=== PATIENT | male | born 1950 | race Caucasian/White ===

== ENCOUNTER → 2017-11-29 12:14 | Outpatient (CLI) | payer MEDICARE, OTHER, SELFPAY ==
[2017-11-29 14:16] LABS: ALB/GLOB Ratio 1.2 RATIO (0.9-2.4); AST(SGOT) 20 U/L (15-37); Alanine Aminotransfer ALT/SGPT 33 U/L (16-61); Albumin, Serum 3.8 g/dL (3.2-5.0); Alkaline Phosphatase 89 U/L (45-117); Anion Gap 10 (5-15); BUN 21 mg/dL (7-18); BUN/Creat Ratio 21.2 RATIO (10-20); Chloride 107 mmol/L (98-107); Cholesterol 157 mg/dL (200); Creatinine, Serum 0.99 mg/dL (0.70-1.30); EST Glomerular Filtration Rate 80 mL/min (>60); Est Glom Filt Rate - Afr Amer 96 mL/min (>60); Globulin 3.2 g/dL (2.2-4.2); Glucose 131 mg/dL (74-106); High Density Lipoprotein 43 mg/dL; Potassium 4.1 mmol/L (3.5-5.1); Sodium Level 143 mmol/L (136-145); Triglycerides 112 mg/dL; Very Low Density Lipoprotein 22 mg/dL (5-40)
[2017-11-29 14:22] LABS: Hemoglobin A1c 7.6 % (4.2-6.3)
== END ==
PROVIDERS: Family Provider Family Medicine; PCP Family Medicine; Visit Provider Family Medicine
DX: I10 Essential (primary) hypertension (principal); E78.2 Mixed hyperlipidemia; E11.9 Type 2 diabetes mellitus without complications
CPT/HCPCS: 36415; 80053; 80061; 83036

== ENCOUNTER → 2018-03-07 08:37 | Outpatient (CLI) | payer MEDICARE, OTHER, SELFPAY ==
[2018-03-07 10:59] LABS: PSA,Total - Annual Screen 0.43 ng/mL (0.00-4.00)
== END ==
PROVIDERS: Family Provider Family Medicine; PCP Family Medicine; Visit Provider Urology
DX: Z12.5 Encounter for screening for malignant neoplasm of prostate (principal)
CPT/HCPCS: 36415; 84153; G0103

== ENCOUNTER → 2018-04-12 09:23 | Outpatient (CLI) | payer MEDICARE, OTHER, SELFPAY | PROVIDERS: Family Provider Family Medicine; PCP Family Medicine; Visit Provider Family Medicine | DX: E11.9 Type 2 diabetes mellitus without complications (principal) | CPT/HCPCS: 36415; 83036 ==

== ENCOUNTER → 2018-07-18 10:32 | Outpatient (CLI) | payer MEDICARE, OTHER, SELFPAY ==
[2018-07-18 09:35] VITALS: BMI 38.2
[2018-07-18 11:33] LABS: Hemoglobin A1c 7.6 % (4.2-6.3)
--- OUTSIDE RECORDS SUMMARY | 2018-09-03 11:06 | XMS RPT_ITS ---
:1950 Author Organization [facility] Care Team Providers Name Role Phone Brown, Cole Attending Unavailable Brown, Cole Referring Unavailable Brown, Cole Attending Unavailable Brown, Cole Referring Unavailable Brown, Cole Primary Care Unavailable Brown, Cole Attending Unavailable Brown, Cole Referring Unavailable Brown, Cole Primary Care Unavailable Brown, Cole Attending Unavailable Brown, Cole Referring Unavailable Brown, Cole Primary Care Unavailable Jose Manuel Pham Attending Unavailable VeroJose Manuel arora Referring Unavailable Brown, Cole Primary Care Unavailable Brown, Cole Attending Unavailable Brown, Cole Referring Unavailable Brown, Cole Primary Care Unavailable Brown, Cole Attending Unavailable Brown, Cole Referring Unavailable Brown, Cole Primary Care Unavailable PROBLEMS PROBLEMS DATE TYPE CONDITION / CODE ATTENDING STATUS SOURCE 07/18/2018 Unknown E11.9 - Type 2 Brown, Cole Active [place] diabetes mellitus Community without Hospital complications / Repository E11.9(ICD-10) 11/29/2017 Unknown E78.2 - Mixed Brown, Cole Active [place] hyperlipidemia / Community E78.2(ICD-10) Hospital Repository 11/29/2017 Unknown I10 - Essential Brown, Cole Active [facility] (primary) [facility] hypertension / Hospital I10(ICD-10) Repository PROCEDURES PROCEDURES No Procedure Records FoundRESULTS RESULTS HEMOGLOBIN A1C Collected: 07/18/2018 Status: F Source: [place] 10:39 AM [facility] REPOSITORY TYPE CODE TESTS RESULT OUT OF RANGE REFERENCE UNITS LAB L501.9985 4.2-6.3 % High HGB A1C 7.6 Performed By: #### L501.9985 #### [facility] [address] [place], [address] INTERNAL MEDICINE Observed: 07/18/2018 Status: F Source: [facility] OFFICE VISIT 10:21 AM [facility] REPOSITORY [facility] [address] [place] [address] [place] [address] OFFICE VISIT Date of Service: 07/18/18 MR#: [id number] Acct: [id number] Name: AARON GOMEZ Rep #: [id number] : 1950 Provider: Cole Espinosa DO Age/Sex: 67/M Location: [facility] Status: Signed Intake Vital Signs07/18/18 Height 5 ft 5.5 in Intake Visit Reasons: 3 MO FU Chief Complaint: follow-up visit Is patient in pain?: No Allergies oxycodone HCl [From Percocet] Allergy (Intermediate, Verified 04/12/18 08:26) Other Medications Aspirin [Aspirin, Baby] 81 mg PO DAILY@0800 01/28/15 [History Confirmed 07/18/18] allopurinol 100 mg tablet 100 mg PO QDAY 11/29/17 [History Confirmed 04/12/18] diltiazem CD 180 mg capsule,extended release 24 hr 180 mg PO DAILY #90 cap 11/29/17 [Rx Confirmed 07/18/18] atorvastatin 40 mg tablet 40 mg PO QDAY #90 tab 01/24/18 [Rx Confirmed 07/18/18] furosemide 40 mg tablet 40 mg PO DAILY 07/18/18 [History Confirmed 07/18/18] glipizide ER 5 mg tablet, extended release 24 hr 5 mg PO QDAY #90 tab 07/18/18 [Rx Confirmed 07/18/18] hydrocodone 5 mg-acetaminophen 325 mg tablet 1 tab PO .twice daily PRN #60 tab 07/18/18 [Rx Confirmed 07/18/18] metformin 500 mg tablet 500 mg PO BID #180 tab 07/18/18 [Rx Confirmed 07/18/18] PFSH Medical History Kidney stones (Resolved) Decreased hearing (Chronic) Hyperlipemia (Chronic) Hypertension (Chronic) Chronic back pain (Chronic) Arthritis (Chronic) Type 2 diabetes mellitus (Chronic) Surgical History History of cervical spinal surgery (Acute) History of kidney stones (Acute) Family History Father Mental disorder Heart disease Mother Heart disease High cholesterol Social History Smoking Status: Never smoker alcohol intake: never substance use type: does not use what type of physical activity do you participate in: walking frequency: daily HPI HPI Chief Complaint: follow-up visit Details: AARON GOMEZ, is a 67 M who presents to the office today for a follow-up on his diabetes. He thinks his sugars are relatively well controlled but he is not really changed his diet. He does complain a lot about joint pain ,knee pain, hip pain ,hand pain but other than some restriction in range of motion there is no sign of inflammatory changes. ROS Const Constitutional: No weight change, body ache, chills, fatigue, sleep problems, fever(s), change in appetite, snoring, weakness, frequent falls, headache(s) or excessive sweating Eyes Eyes: No change in vision, eye pain, light sensitivity or blurry vision ENT ENT: No headache(s), abnormal hearing, ear pain, tinnitus, nasal congestion, sore throat or neck pain Resp Respiratory: No snoring, cough, shortness of breath or wheezing Cardio Cardiology: No excessive sweating, chest pain at rest, chest pain with exertion, shortness of breath, dyspnea on exertion, palpitations, orthopnea or lightheadedness Gastro GI: No abdominal pain, change in bowel habits, constipation, diarrhea, vomiting, nausea/dyspepsia or cramping Genitourinary Male: No painful urination, urinary incontinence, urinary frequency, urinary urgency, blood in urine, testicle pain or other Musc Musculoskeletal: Positive for joint pain (bad in fingers) and other (shoulder pain); no neck pain, abnormal walking, back pain, limited range of motion, numbness, tingling or muscle weakness Skin Skin: No redness, dry skin, itching, lesions, wounds or rash Neuro Neurology: No weakness, frequent falls, headache(s), abnormal hearing, abnormal walking, numbness, tingling, abnormal speech, dizziness or memory loss Psych Psychiatric: No change in appetite, No memory loss, No anxiety, No depression, No Thoughts of harming yourself/Others Endo Endocrine: No fatigue, excessive sweating, cold intolerance, increased thirst/drinking, heat intolerance, flushing or increased hunger Aller/Imm Allergy/Immunologic: No wheezing, itchy eyes, hives or seasonal allergy symptoms Mumtaz/Lymp Hematologic/Lymphatic: No easy bleeding, easy bruising or enlarged lymph nodes Exam Const General: cooperative Nutritional Appearance: average body habitus Orientation: alert Limitations: physical limitations HENMT Head: normal to inspection Ears: hearing grossly normal bilaterally Nose: external nose normal Face and sinus: normal facial exam Eyes General: appearance normal, both eyes and all related structures Neck Neck: no lymphadenopathy Neck mass: No Thyroid: thyroid normal Resp Effort AND Inspection: normal respiratory effort, symmetric chest movement Auscultation: Bilateral: Clear to Auscultation Cardio Rate: regular rate Musc Musculoskeletal: Yes joint tenderness (Left shoulder marked limitation of motion.); no muscle weakness Cervical Spine: pain with cervical ROM and cervical ROM abnormal Skin General: no rashes or lesions noted Neuro General: oriented x3, normal sensation to monofilament Cranial Nerves: CN's II-XI intact bilaterally Extrem General: no clubbing, cyanosis or edema Psych Appearance: grossly normal Mental Status: mental status grossly normal Assessment AND Plan Problems 1. Mixed hyperlipidemia E78.2 2. Essential hypertension I10 3. Chronic back pain M54.9; G89.29 4. Type 2 diabetes mellitus without complication, without long-term current use of insulin E11.9 5. Degenerative joint disease M19.90 Plan Mr. Gomez states that he has not been taking his metformin he is uncertain as to why he ran out but says it has not been refilled upon calling the office. However I have no record that he has called the office for refills so this may affect his hemoglobin A1c that was ordered. Other than that he was told to take acetaminophen for the joint pain supplemented by the Vicodin for the severe back pain which allows him to very remain ambulatory. I suggested that he may want to get a cane or a walking stick to give him a little more support because his ambulation is very tentative. Other lab work was up-to-date and did not need to be repeated follow-up will be in 3 months. Orders Orders: Medications Changed: Refilled: Plan Detail Follow Up 3 Months Coding Level of Care Code Off vis,est,level 3 Diagnoses Mixed hyperlipidemia E78.2 Hyperlipidemia type: mixed hyperlipidemia Essential hypertension I10 Hypertension type: essential hypertension Chronic back pain M54.9; G89.29 Back pain location: low back pain Sciatica presence: without sciatica Type 2 diabetes mellitus without complication, without long- term current use of insulin E11.9 Diabetes mellitus complication status: without complication Diabetes mellitus fdc insulin use: without rodent exterminator use Degenerative joint disease M19.90 07/18/18 1021 <Electronically signed by Cole Espinosa DO> Date Cole Espinosa DO Cosigner Signature: Date (if applicable) CC: HEMOGLOBIN A1C Collected: 04/12/2018 Status: F Source: [facility] 9:28 AM [facility] REPOSITORY TYPE CODE TESTS RESULT OUT OF RANGE REFERENCE UNITS LAB L501.9985 4.2-6.3 % High HGB A1C 7.0 Performed By: #### L501.9985 #### [facility] [address] [place], [address] INTERNAL MEDICINE Observed: 04/12/2018 Status: F Source: [place] OFFICE VISIT 9:09 AM [facility] REPOSITORY [facility] [address] [place] [address] OFFICE VISIT Date of Service: 04/12/18 MR#: [id number] Acct: [id number] Name: AARON GOMEZ Rep #: [id number] : 1950 Provider: Cole Espinosa DO Age/Sex: 67/M Location: [facility] Status: Signed Intake Vital Signs04/12/18 Height 5 ft 5.5 in 04/12/18 Weight: 242 lb 04/12/18 Body Mass Index (BMI) 39.6 04/12/18 Blood Pressure 143/85 Intake Visit Reasons: 3 MO FU Chief Complaint: check up - Diabetes Is patient in pain?: No Allergies oxycodone HCl [From Percocet] Allergy (Intermediate, Verified 04/12/18 08:26) Other Medications Metformin HCl [Glucophage] 500 mg PO BIDCM 09/20/14 [History Confirmed 04/12/18] Aspirin [Aspirin, Baby] 81 mg PO DAILY@0800 01/28/15 [History Confirmed 04/12/18] glipizide ER 5 mg tablet, extended release 24 hr 5 mg PO QDAY #90 tab 11/07/17 [Rx Confirmed 04/12/18] allopurinol 100 mg tablet 100 mg PO QDAY 11/29/17 [History Confirmed 04/12/18] diltiazem CD 180 mg capsule,extended release 24 hr 180 mg PO DAILY #90 cap 11/29/17 [Rx Confirmed 04/12/18] atorvastatin 40 mg tablet 40 mg PO QDAY #90 tab 01/24/18 [Rx Confirmed 04/12/18] hydrocodone 5 mg-acetaminophen 325 mg tablet 1 tab PO TID PRN #60 tab 03/02/18 [Rx Confirmed 04/12/18] PFSH Medical History Kidney stones (Resolved) Decreased hearing (Chronic) Hyperlipemia (Chronic) Hypertension (Chronic) Chronic back pain (Chronic) Arthritis (Chronic) Type 2 diabetes mellitus (Chronic) Surgical History History of cervical spinal surgery (Acute) History of kidney stones (Acute) Family History Father Mental disorder Heart disease Mother Heart disease High cholesterol Social History Smoking Status: Never smoker alcohol intake: never substance use type: does not use what type of physical activity do you participate in: walking frequency: daily HPI HPI Chief Complaint: check up - Diabetes Details: AARON GOMEZ, is a 67 M who presents to the office today for a diabetes recheck ROS Const Constitutional: No chills, fatigue, fever(s), frequent falls, malaise, weakness, sleep problems or change in appetite Eyes Eyes: No blurry vision, change in vision, double vision, discharge or visual disturbances ENT ENT: No abnormal hearing, ear pain, ear pressure, tinnitus or dizziness/vertigo Resp Respiratory: No cough, shortness of breath or wheezing Cardio Cardiology: No chest pain at rest, chest pain with exertion, shortness of breath, dyspnea on exertion, generalized swelling, irregular heart rhythm, lightheadedness, orthopnea, fast heart rate or palpitations Gastro GI: No abdominal pain, change in bowel habits, constipation, diarrhea, nausea/dyspepsia or vomiting Genitourinary Male: No difficulty urinating, burning urination, painful urination, urinary incontinence, urinary frequency, urinary urgency, urinary hesitancy, urinary retention, blood in urine, Frequent nighttime urination/ nocturia, sexual problems, testicle lump or testicle pain Musc Musculoskeletal: Positive for joint pain (Rt knee, Left shoulder) and muscle cramps (Fingers); no back pain, joint swelling, limited range of motion, muscle weakness, numbness or tingling Skin Skin: No change in skin color, itching, rash or wounds Breast Breast: No breast lump or breast pain Neuro Neurology: No frequent falls, weakness, abnormal hearing, numbness, tingling, unsteady gait/balance, dizziness, loss of vision, memory loss or visual disturbances Psych Psychiatric: No memory loss, No anxiety, No change in appetite, No depression, No Thoughts of harming yourself/Others Endo Endocrine: No fatigue, heat intolerance, increased thirst/drinking, increased hunger or increased urination Aller/Imm Allergy/Immunologic: No wheezing, itchy eyes or seasonal allergy symptoms Mumtaz/Lymp Hematologic/Lymphatic: No easy bleeding, easy bruising or enlarged lymph nodes Exam Const General: cooperative Nutritional Appearance: average body habitus Orientation: alert Limitations: physical limitations HENMT Head: normal to inspection Ears: hearing grossly normal bilaterally Nose: external nose normal Face and sinus: normal facial exam Eyes General: appearance normal, both eyes and all related structures Neck Neck: no lymphadenopathy Neck mass: No Thyroid: thyroid normal Resp Effort AND Inspection: normal respiratory effort, symmetric chest movement Auscultation: Bilateral: Clear to Auscultation Cardio Rate: regular rate Musc Musculoskeletal: Yes joint tenderness (Left shoulder marked limitation of motion.); no muscle weakness Cervical Spine: pain with cervical ROM and cervical ROM abnormal Skin General: no rashes or lesions noted Neuro General: oriented x3 Cranial Nerves: CN's II-XI intact bilaterally Extrem General: no clubbing, cyanosis or edema Psych Appearance: grossly normal Mental Status: mental status grossly normal Assessment AND Plan Problems 1. Essential hypertension I10 2. Mixed hyperlipidemia E78.2 3. Chronic back pain M54.9; G89.29 4. Type 2 diabetes mellitus E11.9 5. Kidney stones N20.0 Plan This patient was seen for a follow-up visit on his diabetes. He has lost 7 pounds his blood pressure is stable he states that when he takes his sugars which he does on an occasional basis to usually range from 140-160. Physical examination was unchanged most significantly noting marked decrease in motion of his left shoulder and decrease in motion of his cervical spine. Labs were ordered he was not in the need of any refills at this time. Orders Orders: Plan Detail Follow Up 3 Months Coding Level of Care Code Off vis,est,level 3 Diagnoses Essential hypertension I10 Hypertension type: essential hypertension Mixed hyperlipidemia E78.2 Hyperlipidemia type: mixed hyperlipidemia Chronic back pain M54.9; G89.29 Back pain location: low back pain Sciatica presence: without sciatica Type 2 diabetes mellitus E11.9 Diabetes mellitus complication status: without complication Kidney stones N20.0 04/12/18 0909 <Electronically signed by Cole Espinosa DO> Date Cole Espinosa DO Cosigner Signature: Date (if applicable) CC: PSA,TOTAL - ANNUAL Collected: 03/07/2018 Status: F Source: [place] SCREEN 8:44 AM [facility] REPOSITORY TYPE CODE TESTS RESULT OUT OF RANGE REFERENCE UNITS LAB L501.9910 0.00-4.00 ng/mL Normal PSA,TOT 0.43 SCREEN Result Comment: This test was performed using the TPSA assay method for the [employer] chemistry system. Values obtained with different assay methods cannot be used interchangably. When changing PSA assays in the course of monitoring a patient, additional sequential testing should be carried out to confirm baseline values. Performed By: #### L501.9910 #### [facility] [address] [place], [address] INTERNAL MEDICINE Observed: 11/29/2017 Status: F Source: [place] OFFICE VISIT 3:44 PM [facility] REPOSITORY [facility] [address] [place] [address] [place] [address] OFFICE VISIT Date of Service: 11/29/17 MR#: [id number] Acct: [id number] Name: AARON GOMEZ Rep #: [id number] : 1950 Provider: Cole Espinosa DO Age/Sex: 67/M Location: [facility] Status: Signed Intake Vital Signs11/29/17 Height 5 ft 5.5 in 11/29/17 Weight: 247 lb 11/29/17 Body Mass Index (BMI) 40.4 11/29/17 Blood Pressure 135/83 Intake Visit Reasons: F/U Chief Complaint: check up - Diabetes Assistant Center Manager Required: No Accompanied by: Is patient in pain?: No Allergies oxycodone HCl [From Percocet] Allergy (Intermediate, Verified 11/29/17 11:05) Other Medications Metformin HCl [Glucophage] 500 mg PO BIDCM 09/20/14 [History Confirmed 11/29/17] Aspirin [Aspirin, Baby] 81 mg PO DAILY@0800 01/28/15 [History Confirmed 11/29/17] Furosemide [Furosemide] 40 mg PO DAILY PRN PRN 01/28/15 [History Confirmed 11/29/17] glipizide ER 5 mg tablet, extended release 24 hr 5 mg PO QDAY #90 tab 11/07/17 [Rx Confirmed 11/29/17] allopurinol 100 mg tablet 100 mg PO QDAY 11/29/17 [History Confirmed 11/29/17] atorvastatin 40 mg tablet 40 mg PO QDAY 11/29/17 [History Confirmed 04/24/18] diltiazem CD 180 mg capsule,extended release 24 hr 180 mg PO DAILY #90 cap 11/29/17 [Rx Confirmed 11/29/17] hydrocodone 5 mg-acetaminophen 325 mg tablet 1 tab PO TID PRN #60 tab 11/29/17 [Rx Confirmed 11/29/17] PFSH Medical History Kidney stones (Resolved) Decreased hearing (Chronic) Hyperlipemia (Chronic) Hypertension (Chronic) Chronic back pain (Chronic) Arthritis (Chronic) Type 2 diabetes mellitus (Chronic) Surgical History History of cervical spinal surgery (Acute) History of kidney stones (Acute) Family History Father Mental disorder Heart disease Mother Heart disease High cholesterol Social History Smoking Status: Never smoker alcohol intake: never substance use type: does not use what type of physical activity do you participate in: walking frequency: daily HPI HPI Chief Complaint: check up - Diabetes Details: AARON GOMEZ, is a 67 M who presents to the office today for a check up on his diabetes and his cholesterol ROS Const Constitutional: Positive for fatigue, weakness and excessive sweating; no chills, fever(s), frequent falls, malaise, sleep problems or change in appetite Eyes Eyes: No blurry vision, change in vision, double vision, discharge or visual disturbances ENT ENT: Positive for tinnitus, hearing loss and post nasal drip; no abnormal hearing, ear pain, ear pressure or dizziness/vertigo Resp Respiratory: No cough, shortness of breath or wheezing Cardio Cardiology: Positive for excessive sweating; no chest pain at rest, chest pain with exertion, shortness of breath, dyspnea on exertion, generalized swelling, irregular heart rhythm, lightheadedness, orthopnea, fast heart rate or palpitations Gastro GI: No abdominal pain, change in bowel habits, constipation, diarrhea, nausea/dyspepsia or vomiting Genitourinary Male: No difficulty urinating, burning urination, painful urination, urinary incontinence, urinary frequency, urinary urgency, urinary hesitancy, urinary retention, blood in urine, Frequent nighttime urination/ nocturia, sexual problems, testicle lump or testicle pain Musc Musculoskeletal: Positive for joint pain (lt shoulder); no back pain, joint swelling, limited range of motion, muscle weakness, numbness or tingling Skin Skin: No change in skin color, itching, rash or wounds Breast Breast: No breast lump or breast pain Neuro Neurology: Positive for weakness; no frequent falls, abnormal hearing, numbness, tingling, unsteady gait/balance, dizziness, loss of vision, memory loss or visual disturbances Psych Psychiatric: No memory loss, No anxiety, No change in appetite, No depression, No Thoughts of harming yourself/Others Endo Endocrine: Positive for fatigue and excessive sweating; no heat intolerance, increased thirst/drinking, increased hunger or increased urination Aller/Imm Allergy/Immunologic: No wheezing, itchy eyes or seasonal allergy symptoms Mumtaz/Lymp Hematologic/Lymphatic: No easy bleeding, easy bruising or enlarged lymph nodes Exam Const General: cooperative Nutritional Appearance: average body habitus Orientation: oriented x3 Neck Neck: no lymphadenopathy Neck mass: Yes Resp Effort AND Inspection: normal respiratory effort Auscultation: Bilateral: Clear to Auscultation Cardio Rate: regular rate Rhythm: regular rhythm Musc Musculoskeletal: Yes decreased ROM (both shoulders); no muscle weakness Skin General: no rashes or lesions noted Neuro General: oriented x3, decrease sensation to monofilament Extrem General: normal to inspection, no pedal edema, limp Assessment AND Plan Problems 1. Type 2 diabetes mellitus E11.9 2. Mixed hyperlipidemia E78.2 3. Essential hypertension I10 4. Chronic back pain M54.9; G89.29 5. Kidney stones N20.0 Leisa Suh is here for checkup and his diabetes. In the past his sugars been under pretty good control his biggest problem has been #1 kidney stones #2 some breathing problems #3 severe problems with his shoulders. 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 He tries to control this with narcotics trying to limit his intake to 1 or 2 a day and he usually is able to cope with the pain. Labs were ordered to make sure his medications are correct I will contact him with the results. Orders Orders: Medications New: Changed: From: hydrocodone-acetaminophen 5-325 1 tab PO 4X/DAY PRN PRN Pain mg To: hydrocodone-acetaminophen 5-325 1 tab PO TID PRN Pain Cole Espinosa, DO mg Discontinued: tramadol Discontinued Reason: Pt no longer taki50 mg PO Q4H PRN PRN Pain Marielle Martin ng ciprofloxacin Discontinued Reason: Pt no mg PO BID Marielle Martin taking Coding Level of Care Code Off vis,est,level 3 Diagnoses Type 2 diabetes mellitus E11.9 Diabetes mellitus complication status: without complication Mixed hyperlipidemia E78.2 Hyperlipidemia type: mixed hyperlipidemia Essential hypertension I10 Hypertension type: essential hypertension Chronic back pain M54.9; G89.29 Back pain location: low back pain Kidney stones N20.0 11/29/17 1544 <Electronically signed by Cole Espinosa DO> Date Cole Espinosa DO Cosigner Signature: Date (if applicable) CC: COMPREHENSIVE METABOLIC Collected: 11/29/2017 Status: F Source: [place] [place] 12:22 PM [facility] REPOSITORY TYPE CODE TESTS RESULT OUT OF RANGE REFERENCE UNITS LAB L501.0100 74-106 mg/dL High GLU 131 Result Comment: Fasting Glucose result greater than or equal to 126 mg/dL suggests DIABETES MELLITUS per A.D.A. criteria. Please note revised GLUCOSE reference range effective 2017. LAB L501.1000 7-18 mg/dL High BUN 21 LAB L501.1100 0.70-1.30 mg/dL Normal CREAT,SERUM 0.99 Result Comment: The validity of the calculated GFR AND GFRAA in patients over 70 years has not been determined. Clinical correlation is essential. LAB L501.1110 >60 mL/min Normal EST GFR 80 Result Comment: Non- GFR Calc LAB L501.1115 >60 mL/min Normal EST GFR - AA 96 Result Comment: GFR Calc LAB L501.1300 10-20 RATIO High BUN/CRE 21.2 LAB L501.1500 6.4-8.2 g/dL T Normal PROT 7.0 LAB L501.1800 3.2-5.0 g/dL Normal ALB 3.8 LAB L501.1950 2.2-4.2 g/dL Normal GLOB 3.2 LAB L501.2000 0.9-2.4 RATIO Normal A/G 1.2 LAB L501.2200 8.5-10.1 mg/dL CA Normal 9.0 LAB L501.4100 15-37 U/L Normal AST 20 LAB L501.4305 45-117 U/L Normal ALK P 89 LAB L501.4405 16-61 U/L Normal ALT 33 LAB L501.4600 0.20-1.00 mg/dL High T BILI 1.20 LAB L501.5300 136-145 mmol/L NA Normal 143 LAB L501.5600 3.5-5.1 mmol/L K Normal 4.1 LAB L501.5900 98-107 mmol/L CL Normal 107 LAB L501.6100 21.0-32.0 mmol/L Normal CO2 26.0 LAB L501.6200 5-15 Normal GAP 10 Performed By: #### L500.4050, L500.4100, L501.9985 #### [facility] [address] [place], [place], [id number] LIPID PROFILE Collected: 11/29/2017 Status: F Source: [place] 12:22 PM [facility] REPOSITORY TYPE CODE TESTS RESULT OUT OF RANGE REFERENCE UNITS LAB L501.4900 200 mg/dL Normal CHOL 157 Result Comment: <200 mg/dL Desirable 200-240 mg/dL Borderline >240 mg/dL High Risk LAB L501.5000 mg/dL Normal TRIG 112 Result Comment: The drugs N-Acetylcysteine and Metamizole may falsely depress this assay. Serum Triglycerides Reference Interval Normal <150 mg/dL Borderline high 150 - 199 mg/dL High 200 - 499 mg/dL Very High > or = 500 mg/dL LAB L501.6400 mg/dL Normal HDL 43 Result Comment: The drugs N-Acetylcysteine and Metamizole may falsely depress this assay. Reference Range HDL <40 mg/dL Low HDL Cholesterol HDL >or= 60 mg/dL High HDL Cholesterol LAB L501.6500 0-130 mg/dL Normal LDL 92 LAB L501.6600 5-40 mg/dL Normal VLDL 22 Performed By: #### L500.4050, L500.4100, L501.9985 #### [facility] [address] [place], [place], [address] HEMOGLOBIN A1C Collected: 11/29/2017 Status: F Source: ABIGAIL 12:22 PM [facility] HOSPITAL REPOSITORY TYPE CODE TESTS RESULT OUT OF RANGE REFERENCE UNITS LAB L501.9985 4.2-6.3 % High HGB A1C 7.6 Performed By: #### L500.4050, L500.4100, L501.9985 #### [facility] [address] [place], [address] ALLERGIES ALLERGIES DATE TYPE / CODE NAME / CODE REACTION SEVERITY SOURCE 04/12/2018 Drug oxycodone Other [place] [facility] Allergy/416 HCl/[id number](R Hospital 339283(SNOM XNORM) Repository ED CT) ENCOUNTERS ENCOUNTERS ADMIT/DISCHARGE ACCOUNT ADMITTING ENCOUNTER LOCATION SOURCE NUMBER CLASS 07/18/2018 [id number] [place] [facility] ing:LAB Repository 07/18/2018/ [id number] Ambulatory BMSBuilding:B [place] 8 0 [place].[facility] Repository 04/12/2018 [id number] Ambulatory [place] 9 [facility] ing:MTLAB Repository 04/12/2018/ [id number] Ambulatory BMSBuilding:B [place] 8 3 [place].[facility] Repository 03/07/2018 [id number] Ambulatory [place] 4 [facility] ing:LAB Repository 11/29/2017 [id number] Ambulatory [place] [facility] ing:INT LAB Repository 11/29/2017/ [id number] Ambulatory BMSBuilding:B [place] 8 5 MS.[facility] Repository PAYERS PAYERS ENCOUNTER GUARANTOR PAYER SUBSCRIBER SOURCE 07/18/2018 AARON L Primary AARON L [place] [id number] Insurance:MEDICARE FORRERDOB: [facility] PART A [facility] [id number] Number: Repository [id number]: [phone] [id number] [phone] () Date:2018-07-18 07/18/2018 Secondary AARON L [place] Insurance:[facility] FORRERDOB: Community Number: [id number] Hospital [id number] Repository Date:6375-79-40[address], [place] [address]IF: 07/18/2018 Tertiary NOT GIVENUNK [place] Insurance:SELF PAY [facility] Number: Effective Repository Date:2018-07-18 07/18/2018 AARON L Primary AARON L [place] [id number] Insurance:MEDICARE FORRERDOB: [facility] [id number], [place] Number: Repository [address]Lso: 330 [id number] [phone] () Date:2018-04-12 07/18/2018 Secondary [place] Insurance:AARPPolicy FORRERDOB: Community Number: [id number] Hospital [id number] Repository Date:0762-41-04MW [address], [place] [address]VD: 07/18/2018 Tertiary NOT GIVENUNK [place] Insurance:SELF PAY [facility] Number: Effective Repository Date:2018-07-18 04/12/2018 AARON L Primary AARON L [place] [id number] Insurance:MEDICARE FORRERDOB: [facility] [id number] [place] Number: Repository [id number]: 330 [id number] [phone] () Date:2018-04-12 04/12/2018 Secondary [place] L [place] Insurance:AARPPolicy FORRERDOB: Community Number: [id number] Hospital [id number] Repository Date:3853-93-49SN [address], [place] [address]LJ: 04/12/2018 Tertiary NOT GIVENUNK [place] Insurance:SELF PAY [facility] Number: Effective Repository Date:2018-04-12 04/12/2018 AARON L Primary AARON L [place] [id number] Insurance:MEDICARE FORRERDOB: [facility] BOX PART A [facility] [id number] Number: Repository [id number]: 330 [id number] [phone] () Date:2017-11-29 04/12/2018 Secondary AARON L [place] Insurance:AARPPolicy FORRERDOB: Community Number: [id number] Hospital [id number] Repository Date:[id number] [address]OA: 04/12/2018 Tertiary NOT GIVENUNK [place] Insurance:SELF PAY [facility] Number: Effective Repository Date:2018-04-12 03/07/2018 AARON L Primary AARON L [place] [id number] Insurance:MEDICARE FORRERDOB: [facility] [id number] Number: Repository [id number]: 330 [id number] [phone] () Date:2018-03-07 03/07/2018 Secondary AARON L [place] Insurance:AARPPolicy FORRERDOB: Community Number: [id number] Hospital [id number] Repository Date:[id number] [address], [place] [address]BO: 03/07/2018 Tertiary NOT GIVENUNK [place] Insurance:SELF PAY [facility] Number: Effective Repository Date:2018-03-07 11/29/2017 AARON L Primary ARAON L [place] [id number] Insurance:MEDICARE FORRERDOB: [facility] BOX PART A [facility] [id number] Number: Repository [id number]: [id number] [phone] Date:2017-11-29 () 11/29/2017 Secondary AARON L [place] Insurance:AARPPolicy FORRERDOB: Community Number: [id number] Hospital [id number] Repository Date:3907-22-48TI [address], [place] [address]ZP: 11/29/2017 Tertiary NOT GIVENUNK [place] Insurance:SELF PAY [facility]: Effective Repository Date:2017-11-29 11/29/2017 AARON L FORRERPO Primary AARON L [place] [address] Insurance:MEDICARE [facility] [id number] Number[place] Repository [id number]: [id number] [phone] Date:2017-10-11 () 11/29/2017 Secondary [place] L [place] [facility] FOR[facility]: [facility] Number: [id number] Hospital [id number] Repository Date:7020-31-38[address], [place] [address]RO: 11/29/2017 Tertiary NOT GIVENUNK [place] Insurance:SELF PAY [facility] Number: Effective Repository Date:2017-11-28
== END ==
PROVIDERS: Family Provider Family Medicine; PCP Family Medicine; Referring Provider Family Medicine; Visit Provider Family Medicine
DX: E11.9 Type 2 diabetes mellitus without complications (principal)
CPT/HCPCS: 36415; 83036

== ENCOUNTER → 2018-10-24 09:07 | Outpatient (CLI) | payer MEDICARE, OTHER, SELFPAY ==
[2018-10-24 08:40] VITALS: BMI 38.2
[2018-10-24 12:50] LABS: Hemoglobin A1c 6.9 % (4.2-6.3)
[2018-10-24 13:17] LABS: ALB/GLOB Ratio 1.2 RATIO (0.9-2.4); AST(SGOT) 15 U/L (15-37); Alanine Aminotransfer ALT/SGPT 24 U/L (16-61); Albumin, Serum 3.8 g/dL (3.2-5.0); Alkaline Phosphatase 87 U/L (45-117); Anion Gap 6 (5-15); BUN 16 mg/dL (7-18); BUN/Creat Ratio 14.5 RATIO (10-20); Calcium,Total 8.8 mg/dL (8.5-10.1); Chloride 106 mmol/L (98-107); Cholesterol 159 mg/dL (200); EST Glomerular Filtration Rate 70 mL/min (>60); Est Glom Filt Rate - Afr Amer 85 mL/min (>60); Globulin 3.1 g/dL (2.2-4.2); Glucose 217 mg/dL (74-106); High Density Lipoprotein 47 mg/dL; Potassium 4.2 mmol/L (3.5-5.1); Protein, Total 6.9 g/dL (6.4-8.2); Sodium Level 138 mmol/L (136-145); Triglycerides 106 mg/dL; Very Low Density Lipoprotein 21 mg/dL (5-40)
== END ==
PROVIDERS: Family Provider Family Medicine; PCP Family Medicine; Visit Provider Family Medicine
DX: E11.9 Type 2 diabetes mellitus without complications (principal); I10 Essential (primary) hypertension; E78.5 Hyperlipidemia, unspecified
CPT/HCPCS: 36415; 80053; 80061; 83036

== ENCOUNTER 2018-11-02 22:17 | Emergency (ER) | payer MEDICARE, OTHER, SELFPAY ==
[2018-10-24 08:40] VITALS: BMI 38.2
[2018-11-02 22:21] VITALS: BP 152/104; PULSE 93; RESP 18; TEMP 36.8; O2SAT 93; BMI 34.9
--- NOTE | 2018-11-02 22:31 | CT_ITS ---
STUDY: CT ABDOMEN AND PELVIS WITHOUT CONTRAST REASON FOR EXAM: Male, 68 years old. Left side abdominal pain RADIATION DOSAGE (If Supplied By Facility): CTDIvol = ( 22.39 ) mGy, DLP = ( 1191.01 ) mGycm TECHNIQUE: Transaxial images were obtained from the dome of the diaphragm to the symphysis pubis without oral contrast, and without intravenous contrast. Sagittal and coronal images were reconstructed. Individualized dose optimization techniques were used for this CT. COMPARISON: None. FINDINGS: There is mild bilateral scarring within the lower lobes. The visualized portions of the heart are within normal limits. Normal liver. Normal gallbladder and extrahepatic biliary system. Normal spleen. Normal pancreas. Normal bilateral adrenal glands. There is a 6.1 x 6.1 cm right exophytic right renal cyst partially calcified and unchanged when compared to prior study. There is 3 mm calculus lower pole left kidney there is left perirenal stranding. There is moderate left hydronephrosis and left hydroureter. There is a calculus within the mid left ureter measures 6.7 x 5.2 x 8 mm within the mid left ureter at approximately the L4-L5 level. There is a 4 x 8 x 10 mm calculus within lower pole of the right kidney. There are bilateral fatty inguinal hernias. There may be an undescended right testis. Normal visualized stomach. Normal small intestine. Normal colon. The appendix is visualized and appears normal. Normal abdominal aorta. Normal inferior vena cava. Normal retroperitoneum. Normal urinary bladder. Normal abdominal wall. There are multilevel degenerative changes lumbar spine. There is degenerative changes of both hips. There are small subchondral cysts within the femoral neck.. CT/Abdomen/Pelvis without Cont IMPRESSION: moderate left hydronephrosis and left hydroureter. There is an obstructing calculus within the mid left ureter which measures 6.7 x 5.2 x 8 mm at approximately the L4-L5 level 4 x 8 x 10 mm calculus within lower pole of the right kidney 6.1 x 6.1 exophytic partially calcified right renal cyst Bilateral fatty inguinal hernias possible right undescended testis Multilevel spondylosis lumbar spine Benign subchondral cysts within the bilateral femoral necks which can be associated with impingement syndrome Electronically Signed: Ryan Jacobson, at 0:14 EDT Tel , Service support ,
--- NOTE | 2018-11-02 22:33 | ED.VISSUMM ---
- ER Visit Summary Date of Service: 11/02/18 Chief Complaint: Abdominal pain History of Present Illness: The patient is a 68 M who presents with abdominal pain. He states it is similar to when he has had kidney stones in the past. He had sudden onset left lower abdominal pain which began a couple of hours before presentation. He complains of some mild pain in the lower back. He rates his abdominal pain as 8 out of 10. He denies any associated nausea vomiting or area. He does note a sense of urinary urgency. He denies recent illness. Physical Examination: Initial blood pressure 152/104 vitals otherwise normal No distress Moist mucous membranes Heart regular rate and rhythm Lungs are clear to auscultation Back nontender no CVA tenderness Abdomen is soft and nondistended he does have left lower quadrant tenderness without guarding without rebound Alert Test Results: Labs notable for white blood cell count 14.0. Urinalysis shows 5-[address] of the flank shows moderate left hydroureter and hydronephrosis due to a 6.7 x 5.2 x 8 mm mid ureteral calculus. Incidentally there are bilateral inguinal hernias and subchondral femoral neck cysts. Emergency Department Course and Treatment: Patient was treated here with IV fluids and Toradol. He feels much better on reevaluation. He will be discharged on [place] and Flomax to follow-up with urology as an outpatient. He understands to return for new or worsening symptoms and was discharged home. Treatment Plan: [] Disposition: Discharge Impression: Urolithiasis This note was generated with Snap[employer] dictation software. It may contain incorrect words, spelling, and punctuation that were not noted in review of the chart prior to signing ED Disposition - Plan for ED Patient: Referrals: Cole Espinosa DO [Primary Care Provider] -
[2018-11-02] MEDS: 0.9% Normal Saline 1,000 ML 1000 ML IV (22:42)
[2018-11-02] MEDS: Ketorolac 30 MG/ML Syringe 15 MG IV (22:42)
[2018-11-02 22:54] LABS: Absolute Lymphocyte Count 1.32 X10^3/ul (0.83-4.51); Absolute Neutrophil Count 11.6 X10^3/uL (2.0-7.7); Basophil# 0.03 X10^3/uL; Basophil% 0.2 % (0-1); Eosinophil# 0.13 X10^3/uL; Eosinophils% 0.9 % (0-5); Hematocrit 45.5 % (40-54); Hemoglobin 15.5 g/dl (13.0-16.5); Lymphocyte # 1.32 X10^3/ul (4.0); Lymphocyte % 9.4 % (19-41); Mean Corp Hgb Conc 34.1 g/gl (32-36); Mean Corpuscular Hgb 30.9 pg (27.0-32.0); Mean Corpuscular Volume 90.6 fL (80-94); Mean Platelet Vol. 9.5 fl (6.2-12.0); Monocyte# 0.95 X10^3/uL; Monocyte% 6.8 % (0-10); Neutrophil # 11.58 X10^3/uL (2.7-7.7); Neutrophil % 82.6 % (47-70); POSITIVE COUNT NO; POSITIVE DIFFERENTIAL NO; POSITIVE MORPHOLOGY NO; Platelet Count 269 K/mm3 (150-450); RBC Distribution Width CV 13.1 % (11.6-14.6); RBC Distribution Width SD 42.8 fl (35.1-43.9); Red Blood Count 5.02 M/mm3 (4.6-6.2)
[2018-11-02 23:06] LABS: BUN 21 mg/dL (7-18); Creatinine, Serum 1.23 mg/dL (0.70-1.30); EST Glomerular Filtration Rate 62 mL/min (>60); Estimated Creatinine Clearance 54.07 ml/min; Glucose 221 mg/dL (74-106)
[2018-11-02 23:07] LABS: Anion Gap 6 (5-15); BUN/Creat Ratio 17.1 RATIO (10-20); Calcium,Total 8.8 mg/dL (8.5-10.1); Chloride 106 mmol/L (98-107); Est Glom Filt Rate - Afr Amer 75 mL/min (>60); Potassium 3.9 mmol/L (3.5-5.1); Sodium Level 139 mmol/L (136-145)
[2018-11-02 23:51] LABS: Bacteria 0 SEEN /hpf (None Seen); Mucous, Urine 0 SEEN /hpf (<or=2+)
[2018-11-02 23:54] LABS: Color, Urine Yellow (Yellow); Glucose, Dipstick 100 mg/dl (Normal); Ketone-Dipstick Negative (Negative); Leukocyte Esterase-Dipstick Negative /ul (Negative); Nitrite-Dipstick Negative (Negative); Occult Blood-Urine 25 /ul (Negative); Protein-Dipstick 15 mg/dl (Negative); Urine Bilirubin Dipstick Negative (Negative); Urine Clarity Clear (Clear); Urine Urobilinogen 1 mg/dl (Normal)
[2018-11-03 00:01] LABS: White Blood Cells 0-5 SEEN /hpf (0-5)
[2018-11-03 00:02] LABS: Red Blood Cells-Urine 5-10 SEEN /hpf (0-5); Squamous Epithelial Cells - UA 0-5 SEEN /hpf (0-5)
--- NOTE | 2018-11-03 00:32 | DCINST.ED_ITS ---
ED Disposition - Plan for ED Patient: Instructions: ED Stone Renal W Colic Prescriptions: Hydrocodone Bitart/Apap 5-325 [[place] 5MG-325MG] 1 tab PO Q6H PRN PRN 3 Days #12 tab PRN Reason: Pain Tamsulosin HCl [Flomax] 0.4 mg PO DAILY #7 cap Referrals: Cole Espinosa DO [Primary Care Provider] - Jose Manuel Pham MD [STAFF PHYSICIAN] -
[2018-11-03 00:40] VITALS: PULSE 68; RESP 18
== END 2018-11-03 00:42 | disposition home or self-care (01) ==
LOC: ED 22:46
PROVIDERS: Emergency Provider Emergency Medicine; Family Provider Family Medicine; PCP Family Medicine
DX: N13.2 Hydronephrosis with renal and ureteral calculous obstruction (principal); E66.9 Obesity, unspecified; I10 Essential (primary) hypertension; E11.9 Type 2 diabetes mellitus without complications; Z87.442 Personal history of urinary calculi; Z79.84 Long term (current) use of oral hypoglycemic drugs; Z79.899 Other long term (current) drug therapy
CPT/HCPCS: 74176; 80048; 81001; 85025; 96361; 96374; 99283; J7030

== ENCOUNTER 2018-11-08 06:16 | Day surgery (SDC) | payer MEDICARE, OTHER, SELFPAY ==
--- NOTE | 2018-11-07 15:09 | HP.PCM_ITS ---
History and Physical Date of Admission: 11/08/18 I have ureteral stone. HPI: AARON GOMEZ is a 68 year-old male established patient who is here for ureteral stone. The problem is on the left side. He first noticed the symptoms 1 week ago. This is not his first kidney stone. He is currently having flank pain and back pain. He denies having groin pain, nausea, vomiting, fever, and chills. Pain is occuring on the left side. He has had eswl and ureteroscopy for treatment of his stones in the past. He has not caught a stone in his urine strainer since his symptoms began. The stone is in The mid ureter. The stone is 6 mm . 6mm stone in the left side. ALLERGIES: Percocet MEDICATIONS: Allopurinol 100 mg tablet 1 unspecified PO Daily Cardura 4 mg tablet 1 tablet PO Daily Vicodin Aspir 81 Diltiazem 24Hr Er 180 mg capsule, extended release 24hr Furosemide 40 mg tablet Metformin Hcl 500 mg tablet 1 tablet PO BID Pravastatin Sodium 40 mg tablet PSH: Cysto Remove Stent FB Sim - 2015, 2014, 2014 Cystoscopy Insert Stent - 2015, 2014, 2014 Cystoscopy TURP - 2011 Renal ESWL - 2015, 2015, 2014, 2014 NON- PSH: Colonoscopy - about 2011 Open Biopsy Of Lung Pleura - 2011 Patient documented to have received pneumococcal vaccination Pneumococcal Vaccine Admin PMH: Encounter for screening for malignant neoplasm of prostate - 03/07/2018 Personal history of urinary calculi - 03/07/2018 Calculus of kidney - 04/25/2017, - 02/21/2017, - 05/10/2016, - 2015, - 2015, - 2015, - 2015, - 2014, - 2014, - 2014, - 2014, - 2015, - 2013, - 2012, - 2012 Benign prostatic hyperplasia without lower urinary tract symptoms - 2013, - 2012, - 2012, - 2011 Male erectile dysfunction, unspecified - 2013, - 2012 Other microscopic hematuria - 2013 Benign prostatic hyperplasia with lower urinary tract symptoms - 2011 Frequency of micturition Nocturia Other polyuria Poor urinary stream NON- PMH: Other specified postprocedural states - 2011 Essential (primary) hypertension Pure hypercholesterolemia Type 2 diabetes mellitus without complications Immunizations: None FAMILY HISTORY: None SOCIAL HISTORY: Marital Status: Preferred Language: British; Ethnicity: Not Or ; Race: White Current Smoking Status: Patient has never smoked. Tobacco Use Assessment Completed: Used Smokeless in last 30 days? Smoking cessation counseling was provided. Does not use smokeless tobacco. Does not drink anymore. Does not use drugs. Drinks 2 caffeinated drinks per day. Has not had a blood transfusion. REVIEW OF SYSTEMS: Constitutional: Patient denies fever, chills, weight loss, and weight gain. Genitourinary: Patient reports frequent urination and history of stones. Patient denies leakage of urine, painful urination, difficulty starting stream, weak stream/scanty, bedwetting, blood in the urine, frequent uti's, urinary retention, and get up at night to void. VITAL SIGNS: 11/07/2018 09:15 AM Weight 235 lb / 106.59 kg Height 67 in / 170.18 cm BP 158/100 mmHg BMI 36.8 kg/m? - BMI Counseling was provided. MULTI-SYSTEM PHYSICAL EXAMINATION: Constitutional: Well-nourished. No physical deformities. Normally developed. Good grooming. Neck: Neck symmetrical, not swollen. Normal tracheal position. Respiratory: No labored breathing, no use of accessory muscles. Normal breath sounds. Cardiovascular: Regular rate and rhythm. No murmur, no gallop. Normal temperature, normal extremity pulses, no swelling, no varicosities. Lymphatic: No enlargement of neck, axillae, groin. Skin: No paleness, no jaundice, no cyanosis. No lesion, no ulcer, no rash. Neurologic / Psychiatric: Oriented to time, oriented to place, oriented to person. No depression, no anxiety, no agitation. Gastrointestinal: No mass, no tenderness, no rigidity, non obese abdomen. Eyes: Normal conjunctivae. Normal eyelids. Ears, Nose, Mouth, and Throat: Left ear no scars, no lesions, no masses. Right ear no scars, no lesions, no masses. Nose no scars, no lesions, no masses. Normal hearing. Normal lips. Musculoskeletal: Normal gait and station of head and neck. PAST DATA REVIEWED: Source Of History: Patient Records Review: Previous Doctor Records, Previous Patient Records Urine Test Review: Urinalysis X-Ray Review: C.TCuca Abdomen/Pelvis: Reviewed Films. Reviewed Report. Discussed With Patient. 03/07/18 05/17/16 02/05/16 09/11/13 01/19/11 PSA Total PSA 0.43 ng/mL 0.66 ng/mL 0.78 ng/mL 0.42 mg/dl 0.57 Notes [facility] [address] [place], [address] This test was performed using the TPSA assay method for the Dimension chemistry system. Values obtained with different assay methods cannot be used interchangably. When changing PSA assays in the course of monitoring a patient, additional sequential testing should be carried out to confirm baseline values. [facility] [address] [place], [address] This test was performed using the TPSA assay method for the Dimension chemistry system. Values obtained with different assay methods cannot be used interchangably. When changing PSA assays in the course of monitoring a patient, additional sequential testing should be carried out to confirm baseline values. [facility] [address] [place], [address] This test was performed using the TPSA assay method for the Dimension chemistry system. Values obtained with different assay methods cannot be used interchangably. When changing PSA assays in the course of monitoring a patient, additional sequential testing should be carried out to confirm baseline values. 06/26/13 Hormones Testosterone, Total 346 pg/dL PROCEDURES: Urinalysis - [address]91 Dipstick Dipstick Cont'd Specimen: Voided Blood: about 50 Appearance: Clear pH: 5.0 Color: Yellow Protein: 1+ Glucose: Normal Urobilinogen: Neg Bilirubin: Neg Nitrites: Neg Ketones: Neg Leukocyte Esterase: Neg ASSESSMENT: ICD-10 Details 1 : Calculus of ureter - N20.1 PLAN: Medications New Meds: Naprosyn 500 mg tablet 1 tablet PO BID #20 0 Refill(s) Schedule Procedure: Unspecified Date - Cysto Uretero Lithotripsy - 46329, left Document Letter(s): Created for Patient: Clinical Summary The risks, benefits, and some of the possible complications of the proposed procedure were discussed with the patient at length and in detail including the possibility of bladder injury, urethral injury, ureteral injury, ureteral biopsy, ureteral lesion resection, open nephrectomy, a bladder biopsy, retrograde pyelograms, resection of a bladder lesion, dilation of the urethra, a postoperative catheter, placement of a ureteral stent, and others. The possible need for further surgical procedures was discussed with the patient. The possible need for postoperative treatments including further surgical procedures, chemotherapy, immunotherapy, radiation therapy, and others was discussed with the patient. The possibility that this operative procedure might not to cure the underlying disease, that micrometastatic disease might already be present, and that this underlying disease might result in the of the patient was discussed. The general risks of the operative procedure and the perioperative period were discussed with the patient at length and in detail including swelling, pain, nausea, vomiting, fever, chills, infection, wound infection, sepsis, renal failure, internal or external bleeding, intraoperative bowel, organ or vascular injuries, postoperative formation of scar tissue, the need for blood transfusions, deep venous thrombosis or blood clots, pulmonary embolus, pneumonia, respiratory failure, heart attack, stroke, he and others. All of the patient's questions were answered and he voiced an understanding of these risks, benefits and possible complications. The patient gave fully informed consent to proceed with the procedure. Notes: plan for left ureteroscopy laser stone and stent reviewed CT scan has stone in the mid left ureter.
[2018-11-08 06:56] VITALS: BP 162/81; PULSE 72; RESP 16; TEMP 36.8; O2SAT 94; BMI 35.9
[2018-11-08 07:10] LABS: Bedside Glucose 218 mg/dL (70-110)
[2018-11-08] MEDS: Cefazolin 2 GM in 0.9% Normal Saline 100 ML IV (08:17)
--- NOTE | 2018-11-08 08:21 | DCINST_ITS ---
Discharge Diet: Light diet - advance as tolerated Discharge Activity: Return to Normal Activity Call your doctor if your incision/area has: Continuous Slow Oozing, Sudden Increased Bleeding, Increased Pain/ Swelling, Increased Redness, Foul Smelling Discharge, Swelling at the incision site Suture Line Care: Avoid Pulling/Pushing, Avoid Pinching/Bending Instructions: Treating Kidney Stones: Ureteroscopic Stone Removal Allergies/Adverse Reactions: Allergies oxycodone HCl [From Percocet] Allergy (Intermediate, Verified 11/07/18 14:54) Other shaky, hot, sweaty, nauseated Medications to take at Discharge allopurinol 100 mg tablet 100 mg PO QDAY 11/29/17 furosemide 40 mg tablet 40 mg PO PRN PRN 07/18/18 hydrocodone 5 mg-acetaminophen 325 mg tablet 1 tab PO .twice daily PRN #60 tab 10/24/18 metformin 500 mg tablet 500 mg PO BID #180 tab 10/24/18 Tamsulosin HCl [Flomax] 0.4 mg PO DAILY #7 cap 11/03/18 Atorvastatin Calcium [Lipitor] 40 mg PO QHS 11/07/18 Diltiazem CD [Cardizem CD] 180 mg PO DAILY 11/07/18 Naproxen 500 mg PO BID 11/07/18 Primary Care Physician: Cole Espinosa DO [Primary Care Provider] - Test Results: Test results from this visit will be discussed in further detail at your follow- up appointment, if applicable. Please Follow Up With: Jose Manuel Pham MD When: please call to make an appointment.
--- NOTE | 2018-11-08 09:03 | PCM.OPRPT ---
Report of Operation Date of Procedure: 11/08/18 Pre-Operative Diagnosis: Left ureteral calculi causing obstruction and hydronephrosis Post-Operative Diagnosis: Same Surgery/Procedure Performed:: Cystoscopy, balloon dilation of the left ureter, left ureteroscopy laser lithotripsy of stone, left stent placement, fluoroscopically and interpretation of images, left retrograde pyelogram, Description of Surgical Findings:: 68-year-old male was presented to the hospital with a large obstructing mid ureteral calculi on the left side. He was seen in the office and recommended we proceed with ureteroscopy laser lithotripsy of stone and stent placement. Patient understands the risk of the procedure is bleeding infection, failure to laser the stone completely, possibility of the bleeding secondary procedures, strictures of the ureter, and the risk of anesthesia. 68-year-old male taken back to the operating room after smooth induction of anesthesia he was placed in dorsolithotomy position the penis and testicles were prepped and draped in usual sterile fashion, went into the bladder with a 21 Cymro rigid cystourethroscope, the meatus was normal the pendulous urethra is normal the bulbar urethra is normal sphincter was intact the verumontanum was normal he had a prior resection of the prostate with TURP and a nice TURP defect, within the bladder nice and smooth bladder no tumors or stones are seen within the bladder identified the right and left ureteral orifice identified the trigone. I then cannulated the left ureteral orifice with a Glidewire advanced a wire up in the kidney once a wire was in stable in the kidney over the wire advanced a 12 Cymro 10 cm balloon dilator and balloon dilated the distal ureter, once this was in place I backloaded off the wire left the wire in place and then over the wire I went in with the flexible ureteroscope, I then and encountered the stone and used a 270 ?m laser fiber and laser the stone little tiny pieces with energy settings of 0.6 J and 6 Hz had increased the joules to 1.0 J to break the stone up the little tiny pieces I then put a wire through the scope this straightened out the ureter some more I went past the stone with the ureteroscope once I got into the kidney kidney was distended there is a lot of debris within the kidney I really could not do a good inspection because of all the debris therefore I worked my way down the ureter and the work my way down the ureter pulled the wire out could see the stone fragments passing into the bladder we then went all the way out of the ureter into the bladder I then went back into the bladder with a 21 Cymro rigid cystourethroscope I cannulated the left ureteral orifice with a Glidewire advanced a wire up into the kidney and then over the wire I push the stent a 6 Cymro by 26 cm stent once a stent was in good position I pulled the wire and the stent coiled in the kidney and bladder good position then performed a retrograde pyelogram looked at the anatomy could not see any other obstructing stones along the course of the ureter stent was in good position drain the bladder remove the cystoscope patient's anesthetic was reversed plan to see him next week to remove the stent he will get a KUB beforehand and I trimmed the string of the stent so there is about 1 centimeter hanging out the meatus. Type of Anesthesia:: General Drains: stent 6fr x 26 cm - Admit VTE Documentation VTE Present on Admission: No VTE Mechan Device Prophylaxis: SCD's
--- NOTE | 2018-11-08 09:07 | OP.PCM_ITS ---
Report of Operation Date of Procedure: 11/08/18 Pre-Operative Diagnosis: Left ureteral calculi causing obstruction and hyd ronephrosis Post-Operative Diagnosis: Same Surgery/Procedure Performed:: Cystoscopy, balloon dilation of the left ureter, left ureteroscopy laser lithotripsy of stone, left stent placement, fluoroscopically and interpretation of images, left retrograde pyelogram, Description of Surgical Findings:: 68-year-old male was presented to the hospital with a large obstructing mid ureteral calculi on the left side. He was seen in the office and recommended we proceed with ureteroscopy laser lithotripsy of stone and stent placement. Patient understands the risk of the procedure is bleeding infection, failure to laser the stone completely, possibility of the bleeding secondary procedures, strictures of the ureter, and the risk of anesthesia. 68-year-old male taken back to the operating room after smooth induction of anesthesia he was placed in dorsolithotomy position the penis and testicles were prepped and draped in usual sterile fashion, went into the bladder with a 21 [place] rigid cystourethroscope, the meatus was normal the pendulous urethra is normal the bulbar urethra is normal sphincter was intact the verumontanum was normal he had a prior resection of the prostate with TURP and a nice TURP defect, within the bladder nice and smooth bladder no tumors or stones are seen within the bladder identified the right and left ureteral orifice identified the trigone. I then cannulated the left ureteral orifice with a Glidewire advanced a wire up in the kidney once a wire was in stable in the kidney over the wire advanced a 12 [place] 10 cm balloon dilator and balloon dilated the distal ureter, once this was in place I backloaded off the wire left the wire in place and then over the wire I went in with the flexible ureteroscope, I then and encountered the stone and used a 270 ?m laser fiber and laser the stone little tiny pieces with energy settings of 0.6 J and 6 Hz had increased the joules to 1.0 J to break the stone up the little tiny pieces I then put a wire through the scope this straightened out the ureter some more I went past the stone with the ureteroscope once I got into the kidney kidney was distended there is a lot of debris within the kidney I really could not do a good inspection because of all the debris therefore I worked my way down the ureter and the work my way down the ureter pulled the wire out could see the stone fragments passing into the bladder we then went all the way out of the ureter into the bladder I then went back into the bladder with a 21 [place] rigid cystourethroscope I cannulated the left ureteral orifice with a Glidewire advanced a wire up into the kidney and then over the wire I push the stent a 6 [place] by 26 cm stent once a stent was in good position I pulled the wire and the stent coiled in the kidney and bladder good position then performed a retrograde pyelogram looked at the anatomy could not see any other obstructing stones along the course of the ureter stent was in good position drain the bladder remove the cystoscope patient's anesthetic was reversed plan to see him next week to remove the stent he will get a KUB beforehand and I trimmed the string of the stent so there is about 1 centimeter hanging out the meatus. Type of Anesthesia:: General Drains: stent 6fr x 26 cm - Admit VTE Documentation VTE Present on Admission: No VTE Mechan Device Prophylaxis: SCD's
[2018-11-08 09:14] VITALS: BP 142/79; BP 162/81; PULSE 80; RESP 16; TEMP 36.7; O2SAT 93
[2018-11-08] MEDS: Ketorolac 15 MG/ML Vial IV (09:22)
[2018-11-08 09:30] VITALS: BP 138/83; BP 162/81; PULSE 68; RESP 16; O2SAT 92
[2018-11-08 09:40] LABS: Bedside Glucose 171 mg/dL (70-110)
[2018-11-08 09:45] VITALS: BP 141/80; BP 162/81; PULSE 68; RESP 16; O2SAT 92
[2018-11-08 09:50] VITALS: BP 145/81; BP 162/81; PULSE 65; RESP 16; TEMP 36.6; O2SAT 92
[2018-11-08 11:35] VITALS: BP 155/90; BP 162/81; PULSE 72; RESP 16; TEMP 36.4; O2SAT 92
== END 2018-11-08 11:53 | disposition home or self-care (01) ==
LOC: SDC 06:19 → AC 06:46
PROVIDERS: Family Provider Family Medicine; PCP Family Medicine; Referring Provider Urology; Visit Provider Urology
PROC: 0TJ98ZZ Inspection of Ureter, Via Natural or Artificial Opening Endoscopic (ICD-10-PCS; CPT 52352; principal; 2018-11-08 08:15)
DX: N13.2 Hydronephrosis with renal and ureteral calculous obstruction (principal); I10 Essential (primary) hypertension; E11.9 Type 2 diabetes mellitus without complications; E78.00 Pure hypercholesterolemia, unspecified; Z87.442 Personal history of urinary calculi; Z79.84 Long term (current) use of oral hypoglycemic drugs; Z79.899 Other long term (current) drug therapy
CPT/HCPCS: 52356; 76000; 82962; J7120; C1769; C2617; J2405

== ENCOUNTER 2019-02-03 14:06 | Emergency (ER) | payer MEDICARE, OTHER, SELFPAY ==
[2019-01-17 09:51] VITALS: BMI 35.9
[2019-02-03 14:07] VITALS: BP 181/115; PULSE 80; RESP 16; TEMP 37.6; O2SAT 96; BMI 34.8
--- NOTE | 2019-02-03 14:24 | CT_ITS ---
STUDY: CT ABDOMEN AND PELVIS WITHOUT CONTRAST REASON FOR EXAM: Male, 68 years old. Right flank pain RADIATION DOSAGE (If Supplied By Facility): CTDIvol = ( 19.29 ) mGy, DLP = ( 997.39 ) mGycm TECHNIQUE: Transaxial images were obtained from the dome of the diaphragm to the symphysis pubis without oral contrast, and without intravenous contrast. Sagittal and coronal images were reconstructed. Individualized dose optimization techniques were used for this CT. COMPARISON: 11/02/2018 FINDINGS: There are chronic interstitial fibrotic changes of the lung bases. The visualized portions of the heart are within normal limits. Normal liver. Normal gallbladder and extrahepatic biliary system. Normal spleen. Normal pancreas. Normal bilateral adrenal glands. Right renal cyst with peripheral wall calcification similar since the prior study. Left hydronephrosis seen on the prior study has resolved. However, there is new mild right hydronephrosis with a 4.7 mm proximal right ureter calculus. Bilateral nephrolithiasis noted. Mild right perinephric and periureteral stranding. Normal visualized stomach. Normal small intestine. Normal colon. The appendix is visualized and appears normal. There is diffuse atherosclerotic calcification of the abdominal aorta, without a demonstrated aneurysm. Normal inferior vena cava. Normal retroperitoneum. Normal urinary bladder. There are prostatic calcifications. Normal abdominal wall. There are diffuse degenerative changes of the visualized lumbar spine. There are degenerative changes of the right more than left hip. CT/Abdomen/Pelvis without Cont IMPRESSION: 1. 4.5 mm right proximal ureteral calculus (L5 level, visible on manager trade topogram) with mild hydronephrosis and perinephric/periureteral edema. 2. Bilateral nephrolithiasis. 3. Stable mildly complex right renal cyst (wall calcification). Electronically Signed: Ashwin Ceja MD at 15:58 EDT , Service support ,
--- NOTE | 2019-02-03 14:36 | ED.DCSUM_ITS ---
History of Present Illness Informant: Patient Onset: Yesterday Context: Sudden Onset Timing: Intermittent Quality: sharp Location: right flank Current Severity: Moderate Maximum Severity: Severe Worsened by: nothing Relieved by: nothing Associated Symptoms: nausea Narrative: 68-year-old male presents with right flank pain. It started yesterday. Is sharp and stabbing and intermittent area he has been nauseated. No vomiting or fevers. No difficulty urinating hematuria or dysuria. No diarrhea melena or hematochezia. He has a history of kidney stones. He states that this feels similar. Prior similar symptoms: Yes Recent Illness/Hospitalization: No <Igor Acevedo - Last Filed: 02/03/19 16:24> <Nino Veliz - Last Filed: 02/03/19 16:31> Chief Complaint: Flank Pain Past Medical History Prior records reviewed: Yes Smoking Status: Never smoker <Igor Acevedo - Last Filed: 02/03/19 16:24> <Nino Veliz - Last Filed: 02/03/19 16:31> - Allergies and Home Meds Allergies/Adverse Reactions: Allergies oxycodone HCl [From Percocet] Allergy (Intermediate, Verified 02/03/19 14:06) Other shaky, hot, sweaty, nauseated Primary Care Physician: Cole Espinosa DO [Primary Care Provider] - Review of Systems General: Denies: Chills, Fever Cardiovascular: Denies: Chest pain Respiratory: Denies: Dyspnea Gastrointestinal: Reports: Abdominal pain Genitourinary: Denies: Dysuria, Hematuria, Frequency <Igor Acevedo - Last Filed: 02/03/19 16:24> Physical Exam Vital Signs/Narrative: Vital Signs Temp Pulse Resp BP Pulse Ox 02/03/19 14:07 99.6 F H 80 16 181/115 H 96 Inital Vital Signs reviewed: Yes General: Well nourished, Well developed Head: Normocephalic, Atraumatic Eyes: Perrl, EOMI ENT: Moist mucous membranes Neck: Supple, Nontender Cardiovascular: Regular rate, Regular rhythm Respiratory: No distress, CTA bilaterally, Chest nontender Abdomen: Soft, Nontender, Nondistended, Normal bowel sounds, No masses Back: Nontender. Negative for: CVA tenderness Extremities: Nontender, No edema Skin: Normal color, No rash Neurological: Alert, Oriented x3 <Igor Acevedo - Last Filed: 02/03/19 16:24> Vital Signs/Narrative: Vital Signs Temp Pulse Resp BP Pulse Ox 02/03/19 14:07 99.6 F H 80 16 181/115 H 96 <Nino Veliz - Last Filed: 02/03/19 16:31> Diagnostic/Tx/Re-eval - Medical Decision Making Patient patient presents with right-sided flank pain. He has a 4.5 mm proximal right ureteral stone. Creatinine is slightly elevated. There is no evidence of acute renal insufficiency. His labs otherwise are unremarkable. He does not have a urinary tract infection. His pain is improved after 1 dose of morphine. Repeat abdominal exam is soft and nontender and he is able to tolerate by mouth. He will be discharged to follow-up with urology and prescribed hydrocodone because he states he cannot take Percocet. He will call his urologist on Tuesday. <Igor Acevedo - Last Filed: 02/03/19 16:24> - Medical Decision Making Patient was seen in conjunction with physician assistant site manager. I reviewed the CT myself. There appears to be 2 proximal ureteral stones each 1 measuring about 6 x 6. He does have an elevation of his creatinine off of baseline. His pain is controlled. He wishes to go home because his has dementia and he needs to care for her. He sees Dr. Pham and we will have him call the office on Tuesday. We will write her [place]. Return if worsening patient is understanding the plan. Nino Veliz DO, MS, FACEP <Nino Veliz - Last Filed: 02/03/19 16:31> ED Disposition <Igor Acevedo - Last Filed: 02/03/19 16:24> <Nino Veliz - Last Filed: 02/03/19 16:31> - Plan for ED Patient: Disposition: Home or Assisted Living Diagnosis: Ureteral stone with hydronephrosis Instructions: KIDNEY STONE w/ Colic Prescriptions: Hydrocodone Bitart/Apap 5-325 [[place] 5MG-325MG] 1 tab PO Q6H PRN PRN 3 Days #10 tab PRN Reason: Pain Prescription Printed Referrals: Cole Espinosa DO [Primary Care Provider] -
[2019-02-03] MEDS: 0.9% Normal Saline 1,000 ML 125 ML IV (15:12)
[2019-02-03] MEDS: Morphine 4 MG/ML Syringe IV (15:19)
[2019-02-03] MEDS: Ondansetron 4 MG/2 ML Vial IV (15:19)
[2019-02-03 15:20] LABS: Absolute Lymphocyte Count 1.17 X10^3/ul (0.83-4.51); Absolute Neutrophil Count 12.4 X10^3/uL (2.0-7.7); Basophil# 0.03 X10^3/uL; Basophil% 0.2 % (0-1); Eosinophils% 0.7 % (0-5); Hematocrit 43.5 % (40-54); Hemoglobin 15.1 g/dl (13.0-16.5); Lymphocyte # 1.17 X10^3/ul (4.0); Lymphocyte % 7.9 % (19-41); Mean Corp Hgb Conc 34.7 g/gl (32-36); Mean Corpuscular Hgb 30.8 pg (27.0-32.0); Mean Corpuscular Volume 88.6 fL (80-94); Mean Platelet Vol. 9.9 fl (6.2-12.0); Monocyte# 1.05 X10^3/uL; Monocyte% 7.1 % (0-10); Neutrophil # 12.37 X10^3/uL (2.7-7.7); Neutrophil % 83.8 % (47-70); Platelet Count 298 K/mm3 (150-450); RBC Distribution Width CV 12.8 % (11.6-14.6); RBC Distribution Width SD 40.9 fl (35.1-43.9); Red Blood Count 4.91 M/mm3 (4.6-6.2); White Blood Count 14.8 K/mm3 (4.4-11.0)
[2019-02-03 15:28] LABS: Color, Urine Yellow (Yellow); Glucose, Dipstick 1000 mg/dl (Normal); Ketone-Dipstick Negative (Negative); Leukocyte Esterase-Dipstick 25 /ul (Negative); Nitrite-Dipstick Negative (Negative); Occult Blood-Urine 250 /ul (Negative); Protein-Dipstick 30 mg/dl (Negative); Urine Bilirubin Dipstick Negative (Negative); Urine Clarity Clear (Clear); Urine Urobilinogen Normal (Normal)
[2019-02-03 15:35] LABS: Red Blood Cells-Urine > 100 SEEN /hpf (0-5); White Blood Cells 0-5 SEEN /hpf (0-5)
[2019-02-03 15:36] LABS: POSITIVE COUNT NO; POSITIVE DIFFERENTIAL NO; POSITIVE MORPHOLOGY NO
[2019-02-03 15:36] LABS: Bacteria 1+ /hpf (None Seen); Mucous, Urine 1+ /hpf (<or=2+); Squamous Epithelial Cells - UA 0-5 SEEN /hpf (0-5)
[2019-02-03 15:43] LABS: Anion Gap 5 (5-15); BUN 24 mg/dL (7-18); BUN/Creat Ratio 12.7 RATIO (10-20); Chloride 103 mmol/L (98-107); Creatinine, Serum 1.89 mg/dL (0.70-1.30); EST Glomerular Filtration Rate 38 mL/min (>60); Est Glom Filt Rate - Afr Amer 46 mL/min (>60); Estimated Creatinine Clearance 35.19 ml/min; Glucose 220 mg/dL (74-106); Sodium Level 134 mmol/L (136-145)
[2019-02-03 16:54] VITALS: BP 163/90; PULSE 77; RESP 16; TEMP 36.8; O2SAT 100
--- NOTE | 2019-02-03 16:59 | ED.RN ---
DR RAINEY REPORTS PTT IS ABLE TO BE DISCHARGE AT THIS TIME.
== END 2019-02-03 16:59 | disposition home or self-care (01) ==
PROVIDERS: Emergency Provider Physician Assistant Medical; Family Provider Family Medicine; PCP Family Medicine
DX: N13.2 Hydronephrosis with renal and ureteral calculous obstruction (principal); Z87.442 Personal history of urinary calculi
CPT/HCPCS: 74176; 80048; 81001; 85025; 96361; 96374; 96375; 99283; J7030; A4216; J2405

== ENCOUNTER → 2019-04-19 | Outpatient (CLI) | payer MEDICARE, OTHER, SELFPAY ==
[2019-04-19 13:36] LABS: Absolute Lymphocyte Count 1.89 X10^3/uL (0.83-4.51); Absolute Neutrophil Count 5.3 X10^3/uL (2.0-7.7); Basophil# 0.07 X10^3/uL; Basophil% 0.9 % (0-1); Eosinophil# 0.19 X10^3/uL; Eosinophils% 2.4 % (0-5); Hematocrit 41.4 % (40-54); Hemoglobin 13.7 g/dL (13.0-16.5); Lymphocyte # 1.89 X10^3/ul (4.0); Lymphocyte % 23.6 % (19-41); Mean Corp Hgb Conc 33.1 g/dL (32-36); Mean Corpuscular Hgb 30.2 pg (27.0-32.0); Mean Corpuscular Volume 91.2 fL (80-94); Mean Platelet Vol. 9.6 fl (6.2-12.0); Monocyte# 0.52 X10^3/uL; Monocyte% 6.5 % (0-10); NRBC Flagged by Analyzer 0 % (0-5); Neutrophil # 5.31 X10^3/uL (2.7-7.7); Neutrophil % 66.2 % (47-70); Platelet Count 324 K/mm3 (150-450); RBC Distribution Width SD 43.7 fl (35.1-43.9); Red Blood Count 4.54 M/mm3 (4.6-6.2)
[2019-04-19 14:13] LABS: AST(SGOT) 12 U/L (15-37); Alanine Aminotransfer ALT/SGPT 15 U/L (16-61); Albumin, Serum 3.4 g/dL (3.2-5.0); Alkaline Phosphatase 103 U/L (45-117); Anion Gap 4 (5-15); BUN 21 mg/dL (7-18); BUN/Creat Ratio 18.6 RATIO (10-20); Calcium,Total 8.6 mg/dL (8.5-10.1); Chloride 108 mmol/L (98-107); Creatinine, Serum 1.13 mg/dL (0.70-1.30); EST Glomerular Filtration Rate 68 mL/min (>60); Est Glom Filt Rate - Afr Amer 82 mL/min (>60); Globulin 3.5 g/dL (2.2-4.2); Glucose 137 mg/dL (74-106); PSA,Total - Annual Screen 0.52 ng/mL (0.00-4.00); Protein, Total 6.9 g/dL (6.4-8.2); Sodium Level 139 mmol/L (136-145); Thyroid Stim Hormone (TSH) 1.75 uIU/mL (0.358-3.74)
[2019-04-19 14:51] LABS: Hepatitis C Antibody Non-Reactive (Nonreactive)
== END | disposition home or self-care (01) ==
LOC: LAB 12:53
PROVIDERS: Family Provider Family Medicine; PCP Family Medicine; Referring Provider Family Medicine Geriatric Medicine; Visit Provider Family Medicine Geriatric Medicine
DX: I10 Essential (primary) hypertension (principal); Z13.89 Encounter for screening for other disorder; Z12.5 Encounter for screening for malignant neoplasm of prostate
CPT/HCPCS: 36415; 80053; 84153; 84443; 85025; 86803; G0103

== ENCOUNTER → 2019-04-23 | Outpatient (CLI) | payer MEDICARE, OTHER, SELFPAY ==
--- NOTE | 2019-04-23 09:03 | RAD_ITS ---
STUDY: X-RAY - ABDOMEN/PELVIS REASON FOR EXAM: Male, 68 years old. History of kidney stones. TECHNIQUE: 2 frontal images of the abdomen were obtained. COMPARISON: CT dated February 03, 2019 FINDINGS: There is an unremarkable bowel gas pattern. There is no demonstrated free abdominal air. There are 2 calcific densities noted within the expected region of the right kidney both measuring up to 6 mm consistent with underlying calculi. Colonic bowel gas obscures anatomic detail of the left kidney. There are vascular calcifications present. There are diffuse degenerative changes of the visualized lumbar spine. RAD/Abdomen Single View IMPRESSION: 6 mm right renal calculi. Obscuration of the left kidney secondary to colonic bowel gas. Degenerative changes. Atherosclerosis. Electronically Signed: Krysta Edwards MD at 17:06 EDT Tel , Service support ,
== END | disposition home or self-care (01) ==
LOC: RAD.FUTURE 09:01
PROVIDERS: Family Provider Family Medicine; PCP Family Medicine; Referring Provider Urology; Visit Provider Urology
DX: N20.0 Calculus of kidney (principal)
CPT/HCPCS: 74018

== ENCOUNTER 2019-05-02 05:45 | Day surgery (SDC) | payer MEDICARE, OTHER, SELFPAY ==
[2019-05-02 06:15] LABS: Bedside Glucose 177 mg/dL (70-110)
[2019-05-02 06:17] VITALS: BP 129/87; PULSE 73; RESP 16; TEMP 36.4; O2SAT 96; BMI 33.4
[2019-05-02] MEDS: Lactated Ringers 1,000 ML 100 ML IV (06:32)
[2019-05-02] MEDS: Cefazolin 2 GM in 0.9% Normal Saline 100 ML IV (07:38)
--- NOTE | 2019-05-02 07:46 | DCINST_ITS ---
Discharge Diet: Light diet - advance as tolerated Discharge Activity: Return to Normal Activity Call your doctor if your incision/area has: Continuous Slow Oozing, Sudden Increased Bleeding, Increased Pain/ Swelling, Increased Redness Call your doctor if you observe: Fever of 101 or Higher Suture Line Care: Avoid Pulling/Pushing, Avoid Pinching/Bending Allergies/Adverse Reactions: Allergies oxycodone HCl [From Percocet] Allergy (Intermediate, Verified 04/25/19 11:38) Other shaky, hot, sweaty, nauseated Medications to take at Discharge metformin 500 mg tablet 500 mg PO BID #180 tab 10/24/18 Atorvastatin Calcium [Lipitor] 40 mg PO QHS 11/07/18 Acetaminophen [Tylenol Extra Strength] 500 mg PO Q4H PRN PRN #20 tablet 11/08/18 Lisinopril [Prinivil] 5 mg PO DAILY 04/25/19 Hydrocodone Bitart/Apap 5-325 [[place] 5/325] 1 tab PO Q4H PRN PRN 5 Days #20 tab 05/02/19 The following prescriptions were given: Hydrocodone Bitart/Apap 5-325 [[place] 5/325] 1 tab PO Q4H PRN PRN 5 Days #20 tab PRN Reason: Pain Prescription Printed Primary Care Physician: Mitch Mcwilliams Chi, MD [Primary Care Provider] - Test Results: Test results from this visit will be discussed in further detail at your follow- up appointment, if applicable. Please Follow Up With: Jose Manuel Pham MD When: in 2 weeks, please call to make an appointment.
--- NOTE | 2019-05-02 08:37 | PCM.OPRPT ---
Report of Operation Date of Procedure: 05/02/19 Pre-Operative Diagnosis: Right renal calculi x2 Post-Operative Diagnosis: Same Surgery/Procedure Performed:: Right extracorporeal shockwave lithotripsy Description of Surgical Findings:: Indication is a 68-year-old male has 2 stones in the right kidney today presents to the hospital for shockwave lithotripsy. Patient was taken back to the operating room after smooth induction of anesthesia he was placed supine on the table we made sure his arms and legs were all prepped and padded. Once were on the lithotripter table we used fluoroscopy to identify 2 stones there each about 6 mm in size in the right kidney we then proceeded with shockwave lithotripsy aiming at the stones with the shockwave machine during the treatment we made sure that the both stones were in the therapy had at the F2 focal point of the shockwave treatment. A total of 3000 shocks were delivered to the stones maximum treatment allowed. He went up to kilovolts of 7 kV which is the maximal treatment allowed for kidney. And at the end of the treatment cycle deftly had some minor changes but the stones were still visible had broken up completely yet. At this point I did not think a stent was necessary to the stones without any obstructing location. Want to see him back in a few weeks with a KUB possible he may need a second treatment. Type of Anesthesia:: General Drains: none - Admit VTE Documentation VTE Present on Admission: No VTE Mechan Device Prophylaxis: SCD's
[2019-05-02 08:45] VITALS: BP 129/87; BP 144/77; PULSE 84; RESP 16; TEMP 36.2; O2SAT 95
[2019-05-02] MEDS: Lactated Ringers 1,000 ML 75 ML IV (08:59)
[2019-05-02 09:00] VITALS: BP 125/90; BP 129/87; PULSE 86; RESP 16; O2SAT 94
[2019-05-02 09:10] VITALS: BP 129/87; BP 142/98; PULSE 81; RESP 16; TEMP 36.3; O2SAT 95
[2019-05-02 09:11] LABS: Bedside Glucose 170 mg/dL (70-110)
[2019-05-02 10:15] VITALS: BP 129/87; BP 157/95; PULSE 92; RESP 18; TEMP 36.5; O2SAT 94
== END 2019-05-02 10:30 | disposition home or self-care (01) ==
LOC: SDC 05:46 → AC 05:48
PROVIDERS: Family Provider Family Medicine Geriatric Medicine; PCP Family Medicine Geriatric Medicine; Referring Provider Urology; Visit Provider Urology
PROC: (CPT 50590; principal; 2019-05-02 07:20)
DX: N20.0 Calculus of kidney (principal); E11.9 Type 2 diabetes mellitus without complications; E78.00 Pure hypercholesterolemia, unspecified; I10 Essential (primary) hypertension; Z87.442 Personal history of urinary calculi; Z79.84 Long term (current) use of oral hypoglycemic drugs; Z79.899 Other long term (current) drug therapy
CPT/HCPCS: 50590; 82962; J7120

== ENCOUNTER → 2019-05-24 | Outpatient (CLI) | payer MEDICARE, OTHER, SELFPAY ==
[2019-05-02 06:17] VITALS: BMI 33.4
--- NOTE | 2019-05-24 13:05 | RAD_ITS ---
HISTORY: Kidney stones. Exam is a single view of the abdomen. Most recent comparison x-ray is from April 23, 2019. Comparison CT scan is February 03, 2019. Findings: On the current study there is a calcification superimposed over the inferior pole of the right kidney measuring 6 mm. 2 similar sized nodes are present within this location on the previous study. The second stone from the previous study may be superimposed over the Firster on today's study or may have passed. A a few pelvic phleboliths are present. Levoscoliosis with multilevel degenerative disc disease is the same. Hip arthritis is the same. On the CT of February 03, 2019 there are 2 stones within the right ureter, both at about the level of the L4-5 disc interspace. Is not identified on the current study or the previous x-ray. RAD/Abdomen Single View IMPRESSION: Nonobstructing 6 mm inferior pole right nephrolith that was present on the previous x-ray. A second stone was present on the previous x-ray which is not identified on the current study. This could be superimposed over the same stone, or could have passed. No potential ureteric stones are perceived at 2256 Reported and signed by: Robson Vu MD Electronically Signed: Robson Vu MD at 22:55 EDT Tel , Service support ,
== END | disposition home or self-care (01) ==
LOC: RAD.FUTURE 12:57
PROVIDERS: Family Provider Family Medicine Geriatric Medicine; PCP Family Medicine Geriatric Medicine; Referring Provider Urology; Visit Provider Urology
DX: N20.0 Calculus of kidney (principal)
CPT/HCPCS: 74018

== ENCOUNTER 2019-07-16 21:23 | Emergency (ER) | payer MEDICARE, OTHER, SELFPAY ==
[2019-07-16 21:23] VITALS: BP 157/83; PULSE 69; RESP 16; TEMP 36.9; O2SAT 95; BMI 35.5
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
[2019-07-17 00:24] VITALS: BP 131/79; PULSE 80; RESP 20; O2SAT 98
--- NOTE | 2019-07-17 00:25 | ED.RN ---
THIS NURSE REVIEWED D/C INSTRUCTIONS WITH PT AND VISITOR. PT VERBALIZED UNDERSTANDING OF INSTRUCTIONS AT THIS TIME. PT AMBULATES FROM ROOM ON OWN WITHOUT ASSISTANCE FROM STAFF
== END 2019-07-17 00:26 | disposition home or self-care (01) ==
PROVIDERS: Emergency Provider Emergency Medicine; Family Provider Family Medicine Geriatric Medicine; PCP Family Medicine Geriatric Medicine
DX: S00.81XA Abrasion of other part of head, initial encounter (principal); M19.90 Unspecified osteoarthritis, unspecified site; I10 Essential (primary) hypertension; E11.9 Type 2 diabetes mellitus without complications; Z87.442 Personal history of urinary calculi; E78.5 Hyperlipidemia, unspecified; Z79.84 Long term (current) use of oral hypoglycemic drugs; Z79.899 Other long term (current) drug therapy; W01.0XXA Fall on same level from slipping, tripping and stumbling without subsequent striking against object, initial encounter; Y93.01 Activity, walking, marching and hiking; Y92.219 Unspecified school as the place of occurrence of the external cause; Y99.8 Other external cause status
CPT/HCPCS: 70450; 72125; 99282

== ENCOUNTER → 2019-07-19 11:53 | Outpatient (CLI) | payer MEDICARE, OTHER, SELFPAY ==
[2019-07-16 21:23] VITALS: BMI 35.5
[2019-07-19 12:39] LABS: Absolute Lymphocyte Count 2.27 X10^3/uL (0.83-4.51); Absolute Neutrophil Count 5.4 X10^3/uL (2.0-7.7); Basophil# 0.06 X10^3/uL; Basophil% 0.7 % (0-1); Eosinophil# 0.21 X10^3/uL; Eosinophils% 2.5 % (0-5); Hematocrit 43.5 % (40-54); Hemoglobin 14.2 g/dL (13.0-16.5); Lymphocyte # 2.27 X10^3/ul (4.0); Lymphocyte % 26.7 % (19-41); Mean Corp Hgb Conc 32.6 g/dL (32-36); Mean Corpuscular Hgb 29.6 pg (27.0-32.0); Mean Corpuscular Volume 90.8 fL (80-94); Monocyte# 0.57 X10^3/uL; Monocyte% 6.7 % (0-10); NRBC Flagged by Analyzer 0 % (0-5); Neutrophil # 5.36 X10^3/uL (2.7-7.7); Platelet Count 300 K/mm3 (150-450); RBC Distribution Width CV 12.5 % (11.6-14.6); Red Blood Count 4.79 M/mm3 (4.6-6.2); White Blood Count 8.5 K/mm3 (4.4-11.0)
[2019-07-19 13:17] LABS: ALB/GLOB Ratio 1.2 RATIO (0.9-2.4); AST(SGOT) 13 U/L (15-37); Alanine Aminotransfer ALT/SGPT 23 U/L (16-61); Albumin, Serum 3.9 g/dL (3.2-5.0); Alkaline Phosphatase 96 U/L (45-117); Anion Gap 7 (5-15); BUN 18 mg/dL (7-18); BUN/Creat Ratio 15.5 RATIO (10-20); Calcium,Total 9.3 mg/dL (8.5-10.1); Chloride 104 mmol/L (98-107); Creatinine, Serum 1.16 mg/dL (0.70-1.30); EST Glomerular Filtration Rate 66 mL/min (>60); Est Glom Filt Rate - Afr Amer 80 mL/min (>60); Globulin 3.2 g/dL (2.2-4.2); Glucose 159 mg/dL (74-106); Potassium 4.3 mmol/L (3.5-5.1); Protein, Total 7.1 g/dL (6.4-8.2); Sodium Level 139 mmol/L (136-145); Thyroid Stim Hormone (TSH) 1.52 uIU/mL (0.358-3.74)
== END ==
PROVIDERS: Family Provider Family Medicine Geriatric Medicine; PCP Family Medicine Geriatric Medicine; Visit Provider Family Medicine Geriatric Medicine
DX: E11.65 Type 2 diabetes mellitus with hyperglycemia (principal); E55.9 Vitamin D deficiency, unspecified; I10 Essential (primary) hypertension
CPT/HCPCS: 36415; 80053; 82306; 84443; 85025

== ENCOUNTER → 2019-10-17 | Outpatient (CLI) | payer MEDICARE, OTHER, SELFPAY ==
[2019-10-17 11:12] LABS: Absolute Lymphocyte Count 1.94 X10^3/uL (0.83-4.51); Absolute Neutrophil Count 5.9 X10^3/uL (2.0-7.7); Basophil# 0.06 X10^3/uL; Basophil% 0.7 % (0-1); Eosinophil# 0.24 X10^3/uL; Eosinophils% 2.7 % (0-5); Hematocrit 42.1 % (40-54); Hemoglobin 13.6 g/dL (13.0-16.5); Lymphocyte # 1.94 X10^3/ul (4.0); Lymphocyte % 22.1 % (19-41); Mean Corp Hgb Conc 32.3 g/dL (32-36); Mean Corpuscular Hgb 30.3 pg (27.0-32.0); Mean Corpuscular Volume 93.8 fL (80-94); Mean Platelet Vol. 9.7 fl (6.2-12.0); Monocyte# 0.64 X10^3/uL; Monocyte% 7.3 % (0-10); NRBC Flagged by Analyzer 0 % (0-5); Neutrophil # 5.86 X10^3/uL (2.7-7.7); Platelet Count 324 K/mm3 (150-450); RBC Distribution Width CV 12.9 % (11.6-14.6); RBC Distribution Width SD 44.1 fl (35.1-43.9); Red Blood Count 4.49 M/mm3 (4.6-6.2); White Blood Count 8.8 K/mm3 (4.4-11.0)
[2019-10-17 11:36] LABS: ALB/GLOB Ratio 1.2 RATIO (0.9-2.4); AST(SGOT) 13 U/L (15-37); Alanine Aminotransfer ALT/SGPT 23 U/L (16-61); Albumin, Serum 3.8 g/dL (3.2-5.0); Alkaline Phosphatase 78 U/L (45-117); Anion Gap 5 (5-15); BUN 31 mg/dL (7-18); BUN/Creat Ratio 25.8 RATIO (10-20); Calcium,Total 9.1 mg/dL (8.5-10.1); Chloride 104 mmol/L (98-107); EST Glomerular Filtration Rate 63 mL/min (>60); Est Glom Filt Rate - Afr Amer 77 mL/min (>60); Globulin 3.2 g/dL (2.2-4.2); Glucose 121 mg/dL (74-106); Potassium 4.3 mmol/L (3.5-5.1); Sodium Level 140 mmol/L (136-145)
== END | disposition home or self-care (01) ==
LOC: POLAB3 09:30
PROVIDERS: PCP Family Medicine Geriatric Medicine; Visit Provider Family Medicine Geriatric Medicine
DX: E11.65 Type 2 diabetes mellitus with hyperglycemia (principal); I10 Essential (primary) hypertension
CPT/HCPCS: 36415; 80053; 84443; 85025

== ENCOUNTER → 2020-01-15 | Outpatient (CLI) | payer MEDICARE, OTHER, SELFPAY ==
[2020-01-15 12:48] LABS: Absolute Lymphocyte Count 2.13 X10^3/uL (0.83-4.51); Absolute Neutrophil Count 4.7 X10^3/uL (2.0-7.7); Basophil# 0.04 X10^3/uL; Basophil% 0.5 % (0-1); Eosinophil# 0.25 X10^3/uL; Eosinophils% 3.3 % (0-5); Hematocrit 41.4 % (40-54); Hemoglobin 13.4 g/dL (13.0-16.5); Lymphocyte # 2.13 X10^3/ul (4.0); Lymphocyte % 27.7 % (19-41); Mean Corp Hgb Conc 32.4 g/dL (32-36); Mean Corpuscular Hgb 30.9 pg (27.0-32.0); Mean Corpuscular Volume 95.6 fL (80-94); Mean Platelet Vol. 9.9 fl (6.2-12.0); Monocyte# 0.55 X10^3/uL; Monocyte% 7.2 % (0-10); NRBC Flagged by Analyzer 0 % (0-5); Neutrophil # 4.69 X10^3/uL (2.7-7.7); Platelet Count 321 K/mm3 (150-450); RBC Distribution Width CV 12.9 % (11.6-14.6); RBC Distribution Width SD 45.1 fl (35.1-43.9); Red Blood Count 4.33 M/mm3 (4.6-6.2); White Blood Count 7.7 K/mm3 (4.4-11.0)
[2020-01-15 13:09] LABS: Vitamin D,25 Hydroxy 32.4 ng/mL
[2020-01-15 13:17] LABS: AST(SGOT) 16 U/L (15-37); Alanine Aminotransfer ALT/SGPT 20 U/L (16-61); Albumin, Serum 3.4 g/dL (3.2-5.0); Alkaline Phosphatase 84 U/L (45-117); Anion Gap 10 (5-15); BUN 24 mg/dL (7-18); BUN/Creat Ratio 21.2 RATIO (10-20); Calcium,Total 8.7 mg/dL (8.5-10.1); Chloride 110 mmol/L (98-107); Creatinine, Serum 1.13 mg/dL (0.70-1.30); EST Glomerular Filtration Rate 68 mL/min (>60); Est Glom Filt Rate - Afr Amer 82 mL/min (>60); Globulin 3.3 g/dL (2.2-4.2); Glucose 117 mg/dL (74-106); Potassium 4.5 mmol/L (3.5-5.1); Protein, Total 6.7 g/dL (6.4-8.2); Sodium Level 141 mmol/L (136-145); Thyroid Stim Hormone (TSH) 1.63 uIU/mL (0.358-3.74)
== END | disposition home or self-care (01) ==
LOC: POLAB3 10:49
PROVIDERS: PCP Family Medicine Geriatric Medicine; Visit Provider Family Medicine Geriatric Medicine
DX: E11.65 Type 2 diabetes mellitus with hyperglycemia (principal); E55.9 Vitamin D deficiency, unspecified; I10 Essential (primary) hypertension
CPT/HCPCS: 36415; 80053; 82306; 84443; 85025

== ENCOUNTER 2020-02-03 14:36 | Emergency (ER) | payer MEDICARE, OTHER, SELFPAY ==
[2020-02-03 14:37] VITALS: BP 179/89; PULSE 92; RESP 17; TEMP 37; O2SAT 96; BMI 35.5
--- NOTE | 2020-02-03 14:56 | ED.VIS.GEN ---
History of Present Illness Informant: Patient Onset: Yesterday Context: Gradual Onset Timing: Continuous Quality: Redness swelling Location: Right leg Current Severity: Severe Maximum Severity: Severe Worsened by: Movement and walking and palpation Relieved by: Nothing Associated Symptoms: Denies Narrative: 69-year-old male history of type 2 diabetes presents to the emergency department with redness and swelling of his right leg. He states it is gotten progressively worse over the last week or so. He states that he discontinued taking his water pills because he did not feel he needed them anymore. He lives alone and has not had any help at home to do dressing changes and wound care. He denies fevers chills nausea or vomiting. He denies chest pain or shortness of breath. He is not yet been on antibiotics for this. Prior similar symptoms: Yes Recent Illness/Hospitalization: No <Igor Acevedo - Last Filed: 02/03/20 16:07> <Yaakov Waller - Last Filed: 02/03/20 17:10> Chief Complaint: Cellulitis Past Medical History Prior records reviewed: Yes Past Medical History: - - Hypertension hyperlipidemia type 2 diabetes mellitus Surgical History: - - C spine Lives: Alone Smoking Status: Never smoker Alcohol: None Drugs: None <Igor Acevedo - Last Filed: 02/03/20 16:07> <Yaakov Waller - Last Filed: 02/03/20 17:10> - Allergies and Home Meds Allergies/Adverse Reactions: Allergies oxycodone HCl [From Percocet] Allergy (Intermediate, Verified 02/03/20 14:37) Other shaky, hot, sweaty, nauseated Primary Care Physician: Vikash Quintero MD [STAFF PHYSICIAN] - 2 Days for wound check Mitch Mcwilliams Chi, MD [Primary Care Provider] - Review of Systems All systems negative except as indicated General: Denies: Chills, Fever, Malaise, Sweats Eyes: Denies: Visual changes - bilaterally, Diplopia ENT: Denies: Rhinorrhea, Sore throat Cardiovascular: Denies: Chest pain, Palpitations Respiratory: Denies: Dyspnea, Cough, Dyspnea on exertion Gastrointestinal: Denies: Abdominal pain, Nausea, Vomiting, Diarrhea, Melena, Hematochezia Genitourinary: Denies: Dysuria, Hematuria, Frequency Musculoskeletal: Reports: Swelling, Extremity Pain. Denies: Myalgias, Arthralgias, Neck pain, Back pain Skin: Reports: Wounds. Denies: Rash, Abscess, Abrasions Neurological: Denies: Headache, Weakness, Parasthesia, Numbness <Igor Acevedo - Last Filed: 02/03/20 16:07> Physical Exam Vital Signs/Narrative: Vital Signs Temp Pulse Resp BP Pulse Ox 02/03/20 14:37 98.6 F 92 17 179/89 H 96 Inital Vital Signs reviewed: Yes General: Well nourished, Well developed, No Acute Distress Head: Normocephalic, Atraumatic Eyes: Perrl, EOMI ENT: Moist mucous membranes, No rhinorrhea Neck: Supple, Nontender Cardiovascular: Regular rate, Regular rhythm, No murmurs Respiratory: No distress, CTA bilaterally, Chest nontender Abdomen: Soft, Nontender, Nondistended, Normal bowel sounds Back: Nontender, Normal Inspection Extremities: Tenderness, Edema, - - Bilateral lower extremity edema symmetrical. He has redness and warmth from his proximal to distal right leg. It spares the foot and knee. No focal abscess. DP and PT pulses are normal and symmetrical. There is no redness or swelling above the knee.. Negative for: Calf Tenderness Skin: Normal color, No rash, No Trauma Neurological: Alert, Oriented x3, Cranial nerves II-XII grossly intact, Normal Strength, Normal Sensation Psychological: Normal affect, Normal Mood <Igor Acevedo - Last Filed: 02/03/20 16:07> Vital Signs/Narrative: Vital Signs Temp Pulse Resp BP Pulse Ox 02/03/20 14:37 98.6 F 92 17 179/89 H 96 <WallerYaakov - Last Filed: 02/03/20 17:10> Diagnostic/Tx/Re-eval Laboratory Tests 02/03/20 02/03/20 02/03/20 Range/Units 15:03 15:03 15:03 WBC 8.8 (4.4-11.0) K/mm3 RBC 4.05 L (4.6-6.2) M/mm3 Hgb 12.4 L (13.0-16.5) g/dL Hct 38.7 L (40-54) % MCV 95.6 H (80-94) fL MCH 30.6 (27.0-32.0) pg MCHC 32.0 (32-36) g/dL RDW Std Deviation 43.8 (35.1-43.9) fl RDW Coeff of Javid 12.6 (11.6-14.6) % Plt Count 334 (150-450) K/mm3 MPV 9.0 (6.2-12.0) fl Immature Gran % (Auto) 0.500 (0.0-0.9) % Neut % (Auto) 74.3 H (47-70) % Lymph % (Auto) 17.3 L (19-41) % [place] % (Auto) 5.9 (0-10) % Eos % (Auto) 1.5 (0-5) % Baso % (Auto) 0.5 (0-1) % Absolute Neuts (auto) 6.6 (2.0-7.7) X10^3/uL Absolute Lymphs (auto) 1.52 (0.83-4.51) X10^3/uL Nucleated RBC % 0 (0-5) % Sodium 143 (136-145) mmol/L Potassium 3.8 (3.5-5.1) mmol/L Chloride 111 H (98-107) mmol/L Carbon Dioxide 25.0 (21.0-32.0) mmol/L Anion Gap 7 (5-15) BUN 21 H (7-18) mg/dL Creatinine 1.19 (0.70-1.30) mg/dL Estim Creat Clear Calc 56.94 ml/min Est GFR (MDRD) Af Amer 77 (>60) mL/min Est GFR (MDRD) Non-Af 64 (>60) mL/min BUN/Creatinine Ratio 17.6 (10-20) RATIO Glucose 209 H (74-106) mg/dL Lactic Acid 1.7 (0.4-1.9) mmol/L Calcium 8.3 L (8.5-10.1) mg/dL - Medical Decision Making Laboratory work-up pursued. White blood cell count was within normal limits. Lactic acid was negative. The rest of his labs are unremarkable. Patient will be discharged home on doxycycline. First dose given in emergency department. Discussed elevation and proper wound care. He was referred to the wound care center. He states he is familiar as he used to take his there. He was advised to elevate his legs and call the wound center tomorrow to schedule an appointment. He was agreeable with plan and all questions were answered. <Igor Acevedo - Last Filed: 02/03/20 16:07> - Medical Decision Making I did perform an independent history and physical. Patient presents because of increased redness to his right leg. He states he applied a dressing 3 days ago. His daughter applied a dressing today. He has been placing ointment that was prescribed for his from the wound center. He denies itching. He does have chronic swelling and discoloration of the leg. He denies fever, chills or night sweats. He denies his blood sugars being significantly elevated from baseline. He denies polyuria, polydipsia or polyphagia. He denies blurred vision. Patient has significant erythema with warmth the right leg. There is no involvement of the foot. The area is weeping which may be due to the ointment and an allergic reaction versus wounds due to the lymphedema. There is no popliteal or inguinal lymphadenopathy. There is no lymphangitis. Blood work was obtained and does reveal normally blood sugar of 209. CBC is unremarkable. Lactate is unremarkable. Patient was placed on doxycycline for streptococcal, staphylococcal and anaerobic coverage. <Yaakov Waller - Last Filed: 02/03/20 17:10> ED Disposition <Igor Acevedo - Last Filed: 02/03/20 16:07> <Yaakov Waller - Last Filed: 02/03/20 17:10> - Plan for ED Patient: Disposition: Home or Assisted Living Diagnosis: Cellulitis of right leg without foot, Type 2 diabetes mellitus Instructions: Cellulitis Prescriptions: Doxycycline 100 mg PO BID #20 cap Prescription Printed Referrals: Mitch Mcwilliams Chi, MD [Primary Care Provider] - Vikash Quintero MD [STAFF PHYSICIAN] - 2 Days for wound check
[2020-02-03 15:13] LABS: Absolute Lymphocyte Count 1.52 X10^3/uL (0.83-4.51); Absolute Neutrophil Count 6.6 X10^3/uL (2.0-7.7); Basophil# 0.04 X10^3/uL; Basophil% 0.5 % (0-1); Eosinophil# 0.13 X10^3/uL; Eosinophils% 1.5 % (0-5); Hematocrit 38.7 % (40-54); Hemoglobin 12.4 g/dL (13.0-16.5); Lymphocyte # 1.52 X10^3/ul (4.0); Lymphocyte % 17.3 % (19-41); Mean Corpuscular Hgb 30.6 pg (27.0-32.0); Mean Corpuscular Volume 95.6 fL (80-94); Monocyte# 0.52 X10^3/uL; Monocyte% 5.9 % (0-10); NRBC Flagged by Analyzer 0 % (0-5); Neutrophil # 6.55 X10^3/uL (2.7-7.7); Neutrophil % 74.3 % (47-70); Platelet Count 334 K/mm3 (150-450); RBC Distribution Width CV 12.6 % (11.6-14.6); RBC Distribution Width SD 43.8 fl (35.1-43.9); Red Blood Count 4.05 M/mm3 (4.6-6.2); White Blood Count 8.8 K/mm3 (4.4-11.0)
[2020-02-03 15:31] LABS: Anion Gap 7 (5-15); BUN 21 mg/dL (7-18); BUN/Creat Ratio 17.6 RATIO (10-20); Calcium,Total 8.3 mg/dL (8.5-10.1); Chloride 111 mmol/L (98-107); Creatinine, Serum 1.19 mg/dL (0.70-1.30); EST Glomerular Filtration Rate 64 mL/min (>60); Est Glom Filt Rate - Afr Amer 77 mL/min (>60); Estimated Creatinine Clearance 56.94 ml/min; Glucose 209 mg/dL (74-106); Potassium 3.8 mmol/L (3.5-5.1); Sodium Level 143 mmol/L (136-145)
[2020-02-03 15:34] LABS: Lactic Acid 1.7 mmol/L (0.4-1.9)
[2020-02-03] MEDS: Doxycycline 100 MG CAPSULE PO (16:38)
[2020-02-03] MEDS: Naproxen 500 MG Tablet PO (16:38)
== END 2020-02-03 16:46 | disposition home or self-care (01) ==
PROVIDERS: Emergency Medicine; Emergency Provider Physician Assistant Medical; PCP Family Medicine Geriatric Medicine
DX: L03.115 Cellulitis of right lower limb (principal); E11.9 Type 2 diabetes mellitus without complications; E78.5 Hyperlipidemia, unspecified; I10 Essential (primary) hypertension; Z79.84 Long term (current) use of oral hypoglycemic drugs; Z79.899 Other long term (current) drug therapy
CPT/HCPCS: 80048; 83605; 85025; 99285; A4216

== ENCOUNTER 2020-02-28 10:00 | Outpatient (RCR) | payer MEDICARE, OTHER, SELFPAY ==
[2020-02-14 09:58] VITALS: BP 113/71; PULSE 85; RESP 18; TEMP 37.3; BMI 34.0
--- NOTE | 2020-02-14 10:48 | PCM.WC.HP ---
(1) Ulcer of right lower extremity with fat layer exposed Status: Chronic Current Visit: Yes Code(s): L97.912 - Non-pressure chronic ulcer of unspecified part of right lower leg with fat layer exposed (2) Venous insufficiency of both lower extremities Status: Chronic Current Visit: Yes Code(s): I87.2 - Venous insufficiency (chronic) (peripheral) (3) Type 2 diabetes mellitus Status: Chronic Current Visit: Yes Qualifiers: Code(s): E11.9 - Type 2 diabetes mellitus without complications History of Present Illness Date of Service: 02/14/20 Chief Complaint: Right Leg Ulcer x 1 month History of Wound: Mr Elizabeth is a 69-year-old who presents to the wound center due to nonhealing right leg ulcer. Noted about a month ago. Was seen by his primary care physician and also at the ER. Had been placed on antibiotics without any significant improvement. Also had dressings done by his primary care physician however, he reports difficulty doing this at home by himself. Lives alone. He states that he sleeps sitting in a chair and typically notes worsening pain at night. Denies chills, fever otherwise feeling of unwell. History of diabetes mellitus type 2 and last A1c was 6.9. Past Medical History Past Medical History: Chronic Problems (Last Reviewed 01/17/19 @ 10:[address] Cole Espinosa, DO) Ulcer of right lower extremity with fat layer exposed (Chronic) Venous insufficiency of both lower extremities (Chronic) Decreased hearing (Chronic) Hyperlipemia (Chronic) Hypertension (Chronic) Chronic back pain (Chronic) Arthritis (Chronic) Type 2 diabetes mellitus (Chronic) Surgical History: - - C spine Allergies/Adverse Reactions: Allergies oxycodone HCl [From Percocet] Allergy (Intermediate, Verified 02/03/20 14:37) Other shaky, hot, sweaty, nauseated Home Medications: Ambulatory Orders Medication Instructions Recorded Atorvastatin Calcium [Lipitor] 40 mg PO QHS 11/07/18 Acetaminophen [Tylenol Extra 500 mg PO Q4H PRN PRN #20 tablet 11/08/18 Strength] Lisinopril [Prinivil] 5 mg PO DAILY 04/25/19 Doxycycline 100 mg PO BID #20 cap 02/03/20 metFORMIN HCl [Glucophage] 1,000 mg PO BID 02/03/20 Smoking Status: Never smoker Review of Systems Constitutional: Denies: Anorexia, Chills, Fever, Malaise, Weakness Eyes: Denies: Blurred vision, Pain, Redness HEENT: Denies: Difficulty Swallowing, Head Aches Cardiovascular: Denies: Chest Pain, Claudication, Chest Pressure Respiratory: Denies: Cough, Hemoptysis Gastrointestinal: Denies: Abdominal Pain, Hematemesis, Vomiting Genitourinary: Denies: Hematuria Skin: Denies: Jaundice - Physical Exam Vital Signs Temp Pulse Resp BP 99.2 F H 85 18 113/71 02/14/20 09:58 02/14/20 09:58 02/14/20 09:58 02/14/20 09:58 General: Alert, Oriented x3, Cooperative, No apparent distress HEENT: Atraumatic, Normocephalic Oral: Moist Mucosa Neck: Supple Lungs: Normal air movement Cardiovascular: Regular rate, Regular Rhythm, Normal S1, Normal S2 Abdomen: Soft, Non Tender, Obese Extremities: No cyanosis Skin: Ulcer/ Wound Wound Measurements and Assessment WC - Nurse 1 - General Ulcer Measurement Start: 02/14/20 09:38 Freq: Status: Active Protocol: Activity Type Activity Date Activity User E-Sign Co-Sign Detail Recorded Client Recorded Date Recorded By Document 02/14/20 09:58 DV [id number] 02/14/20 10:11 DV 02/14/20 09:58 Wound Center Nurse 1 [Ulcer Assessment] #1 RLE Circ -Combined with other wound No -Current Size (cm) - Length 10.0 -Current Size (cm) - Width 35 -Current Size (cm) - Depth 0.1 -Total Square Cm 350.0 -Date of Last Picture (Recall this 02/14/20 field) -Photo Taken Yes -Epithelialization None Present -Tunneling No -Undermining/Tunneling No -Circular Undermining No -Classification - Thickness Full Thickness without Exposed Support Structure -Exudate Amt Large -Exudate Type Yellow/Green -Wound Margin Indistinct, Non -Visible -Granulation Amt None Present (0 %) -Granulation Quality N/A -Slough/Fibrin Yes -Necrosis Amt Large (67-100%) -Necrotic Tissue Type Adherent Slough -Structure Exposed None/Limited to Skin Breakdown -Texture (Alice-wound Skin Appearance) Assessed, Excoriation, Localized Edema -Moisture (Alice-wound Skin Appearance Assessed, ) Maceration, Weeping -Color (Alice-wound Skin Appearance) Assessed -Temperature (Alice-wound Skin No Abnormality Appearance) (Pt Warm) -Tenderness on Palpation (Alice-wound Yes Skin Appearance) -Foul Odor after Cleansing Yes -Anesthetic Used 4% Lidocaine Solution [Edema Assessment] -Lower Limb Edema Present Yes -Right Calf (cm) 45.5 -Right Ankle (cm) 27.3 -Left Calf (cm) 43.7 -Left Ankle (cm) 28.6 - Nurse 2 - General Ulcer CM Notes Start: 02/14/20 09:38 Freq: Status: Active Protocol: Activity Type Activity Date Activity User E-Sign Co-Sign Detail Recorded Client Recorded Date Recorded By Document 02/14/20 10:29 MW [id number] 02/14/20 10:34 MW 02/14/20 10:29 Wound Center Nurse 2 [Procedure/Treatment] #1 RLE Circ -Time 10:31 -Correct Patient Yes -Correct Side, Site, Position Yes -Correct Procedure Yes -Procedure Performed Yes -Type of Procedure Debridement -Clinical Debridement Selective -Post Debridement Size (cm) - Length 10.0 -Post Debridement Size (cm) - Width 31.0 -Post Debridement Size (cm) - Depth 0.1 -Total Square Cm 310.00 -Wound/Ulcer Outcome Not Healed -Ulcer Cleansing Rinsed/ Irrigated with Saline -Foul Odor after Cleansing No -Bioengineered Tissue No -Bleeding Controlled with Pressure -Offloading No -Treatment Response Procedure Tolerated Well [See Physician Procedure note for Specifics] Pain Scale: 0-10 Numeric [Pain] -Is Patient Pain Free? Yes Musculoskeletal: No Muscle Wasting Neurological: Cranial nerves II-XII grossly intact Psych/Mental Status: Normal Affect Debridement Note Post-Debridement Measurements/Treatment - Nurse 2 - General Ulcer CM Notes Start: 02/14/20 09:38 Freq: Status: Active Protocol: Activity Type Activity Date Activity User E-Sign Co-Sign Detail Recorded Client Recorded Date Recorded By Document 02/14/20 10:29 MW [id number] 02/14/20 10:34 MW 02/14/20 10:29 Wound Center Nurse 2 #1 RLE Circ -Time 10:31 -Correct Patient Yes -Correct Side, Site, Position Yes -Correct Procedure Yes -Procedure Performed Yes -Type of Procedure Debridement -Clinical Debridement Selective -Post Debridement Size (cm) - Length 10.0 -Post Debridement Size (cm) - Width 31.0 -Post Debridement Size (cm) - Depth 0.1 -Total Square Cm 310.00 -Wound/Ulcer Outcome Not Healed -Ulcer Cleansing Rinsed/ Irrigated with Saline -Foul Odor after Cleansing No -Bioengineered Tissue No -Bleeding Controlled with Pressure -Offloading No -Treatment Response Procedure Tolerated Well Pain Scale: 0-10 Numeric Is Patient Pain Free? Yes Wound debrided: Right leg (circumferential) Type of Debridement: Selective debridement Anesthesia Used: 4% Lidocaine Solution Depth: Down to and including healthy tissue Percentage of wound debrided: 100 Instrument Used: 5mm curette Tissue Removed: Slough and devitalized tissue Severity: Limited To Skin Breakdown Amount of bleeding with debridement: Mild Bleeding Controlled with: Pressure Patient tolerated procedure well Assessment/Plan Active Problems (Last Reviewed 01/17/19 @ 10:[address] Cole Espinosa, DO) Ulcer of right lower extremity with fat layer exposed (Chronic) Venous insufficiency of both lower extremities (Chronic) Type 2 diabetes mellitus (Chronic) Assessment: Same as above Plan: Debridement done as documented above, procedure was well-tolerated. Aquacel extra to open surfaces with Xeroform over right lower extremity. ABD to help with drainage. 3M layers for compression. Lengthy discussion had with patient, leg elevation, optimal diabetes control and increased protein intake recommended. His questions were answered and he was advised to call with any questions or concerns. Follow-up on Tuesday for nurse visit and in 1 week with me. This note was generated with [employer] dictation software. It may contain incorrect words, spelling, and punctuation that were not noted in checking the note before signing. Multi Select Codes - Visit Charges Office Visit/Consults: 33655 OV L3 New - Integumentary Integumentary CPT Codes: 30331 Ann subq tissue 20 sq cm/< - Selective debridement. Additional square centimeters debrided, please refer to clinical note.
[2020-02-18 14:54] VITALS: BP 115/72; PULSE 86; RESP 18; TEMP 36.6; BMI 34.0
[2020-02-21 08:35] VITALS: BP 164/83; PULSE 70; RESP 18; TEMP 36.8; BMI 34.0
--- NOTE | 2020-02-21 08:53 | PN.PCM_ITS ---
(1) Ulcer of right lower extremity with fat layer exposed Status: Chronic Current Visit: Yes Code(s): L97.912 - Non-pressure chronic ulcer of unspecified part of right lower leg with fat layer exposed (2) Venous insufficiency of both lower extremities Status: Chronic Current Visit: Yes Code(s): I87.2 - Venous insufficiency (chronic) (peripheral) (3) Type 2 diabetes mellitus Status: Chronic Current Visit: Yes Qualifiers: Code(s): E11.9 - Type 2 diabetes mellitus without complications Type of Wound Date of Service: 02/21/20 Chief Complaint: Right Leg Ulcer x 1 month History of Wound: Mr Elizabeth is a 69-year-old who presents to the wound center due to nonhealing right leg ulcer. Noted about a month ago. Was seen by his primary care physician and also at the ER. Had been placed on antibiotics wit hout any significant improvement. Also had dressings done by his primary care physician however, he reports difficulty doing this at home by himself. Lives alone. He states that he sleeps sitting in a chair and typically notes worsening pain at night. Denies chills, fever otherwise feeling of unwell. History of diabetes mellitus type 2 and last A1c was 6.9. Progress of Wound: Healed. Lower extremity edema still present. No new concerns at this time. - Physical Exam Vital Signs Temp Pulse Resp BP 98.3 F 70 18 164/83 H 02/21/20 08:35 02/21/20 08:35 02/21/20 08:35 02/21/20 08:35 General: Alert, Oriented x3, Cooperative, No apparent distress HEENT: Atraumatic, Normocephalic Oral: Moist Mucosa Neck: Supple Lungs: Normal air movement Extremities: No cyanosis, Peripheral Pulses Normal Wound Measurements and Assessment WC - Nurse 1 - General Ulcer Measurement Start: 02/14/20 09:38 Freq: Status: Active Protocol: Activity Type Activity Date Activity User E-Sign Co-Sign Detail Recorded Client Recorded Date Recorded By Document 02/21/20 08:35 RB [id number] 02/21/20 08:37 RB 02/21/20 08:35 Wound Center Nurse 1 [Ulcer Assessment] #1 RLE Circ -Combined with other wound No -Current Size (cm) - Length 0.1 -Current Size (cm) - Width 0.1 -Current Size (cm) - Depth 0.1 -Total Square Cm 0.01 -Tunneling No -Undermining/Tunneling No -Circular Undermining No -Exudate Amt None Present -Wound Margin Flat & Intact -Granulation Amt Large (67-100%) -Granulation Quality [place] -Slough/Fibrin No -Necrosis Amt None Present (0 %) -Structure Exposed N/A -Texture (Alice-wound Skin Appearance) Assessed -Moisture (Alice-wound Skin Appearance Assessed,Dry/ ) Scaly -Color (Alice-wound Skin Appearance) Assessed -Temperature (Alice-wound Skin No Abnormality Appearance) (Pt Warm) -Tenderness on Palpation (Alice-wound No Skin Appearance) -Ulcer Cleansing Wound Cleanser -Foul Odor after Cleansing No [Edema Assessment] -Lower Limb Edema Present Yes -Right Calf (cm) 40 -Right Ankle (cm) 26.5 WC - Nurse 2 - General Ulcer CM Notes Start: 02/14/20 09:38 Freq: Status: Active Protocol: Activity Type Activity Date Activity User E-Sign Co-Sign Detail Recorded Client Recorded Date Recorded By Document 02/21/20 08:44 MW [id number] 02/21/20 08:45 MW 02/21/20 08:44 Wound Center Nurse 2 [Procedure/Treatment] #1 RLE Circ -Time 08:44 -Correct Patient Yes -Correct Side, Site, Position Yes -Correct Procedure Yes -Procedure Performed No -Post Debridement Size (cm) - Length 0 -Post Debridement Size (cm) - Width 0 -Post Debridement Size (cm) - Depth 0 -Total Square Cm 0 -Wound/Ulcer Outcome Healed- Epithelialized [See Physician Procedure note for Specifics] Pain Scale: 0-10 Numeric [Pain] -Is Patient Pain Free? Yes Neurological: Cranial nerves II-XII grossly intact Psych/Mental Status: Normal Affect Debridement Note Post-Debridement Measurements/Treatment WC - Nurse 2 - General Ulcer CM Notes Start: 02/14/20 09:38 Freq: Status: Active Protocol: Activity Type Activity Date Activity User E-Sign Co-Sign Detail Recorded Client Recorded Date Recorded By Document 02/14/20 10:29 MW [id number] 02/14/20 10:34 MW Document 02/21/20 08:44 MW [id number] 02/21/20 08:45 MW 02/14/20 02/21/20 10:29 08:44 Wound Center Nurse 2 #1 RLE Circ -Time 10:31 08:44 -Correct Patient Yes Yes -Correct Side, Site, Position Yes Yes -Correct Procedure Yes Yes -Procedure Performed Yes No -Type of Procedure Debridement -Clinical Debridement Selective -Post Debridement Size (cm) - Length 10.0 0 -Post Debridement Size (cm) - Width 31.0 0 -Post Debridement Size (cm) - Depth 0.1 0 -Total Square Cm 310.00 0 -Wound/Ulcer Outcome Not Healed Healed- Epithelialized -Ulcer Cleansing Rinsed/ Irrigated with Saline -Foul Odor after Cleansing No -Bioengineered Tissue No -Bleeding Controlled with Pressure -Offloading No -Treatment Response Procedure Tolerated Well Pain Scale: 0-10 Numeric Is Patient Pain Free? Yes Yes No debridement was completed today Assessment/Plan Active Problems (Last Reviewed 01/17/19 @ 10:[address] Cole Espinosa, DO) Ulcer of right lower extremity with fat layer exposed (Chronic) Venous insufficiency of both lower extremities (Chronic) Type 2 diabetes mellitus (Chronic) Assessment: Same as above Plan: Healed. Edema however still present. 3M wrap for one more week. Prescription for Circaids sent. He states that he is unable to wear compression stockings himself and currently lives alone. His questions were answered and he was advised to call with any questions or concerns. Follow up in 1 week. This note was generated with [employer] software. It may contain incorrect wo rds, spelling, and punctuation that were not noted in checking the note before signing. Office Visits / Consults: [address] [facility] Est
[2020-02-28 09:54] VITALS: BP 157/75; PULSE 68; RESP 20; TEMP 36.7; BMI 34.0
--- NOTE | 2020-02-28 10:26 | PN.PCM_ITS ---
(1) Ulcer of right lower extremity with fat layer exposed Status: Chronic Current Visit: Yes Code(s): L97.912 - Non-pressure chronic ulcer of unspecified part of right lower leg with fat layer exposed (2) Venous insufficiency of both lower extremities Status: Chronic Current Visit: Yes Code(s): I87.2 - Venous insufficiency (chronic) (peripheral) (3) Type 2 diabetes mellitus Status: Chronic Current Visit: Yes Qualifiers: Code(s): E11.9 - Type 2 diabetes mellitus without complications Type of Wound Date of Service: 02/28/20 Chief Complaint: Right Leg Ulcer x 1 month History of Wound: Mr Elizabeth is a 69-year-old who presents to the wound center due to nonhealing right leg ulcer. Noted about a month ago. Was seen by his primary care physician and also at the ER. Had been placed on antibiotics wit hout any significant improvement. Also had dressings done by his primary care physician however, he reports difficulty doing this at home by himself. Lives alone. He states that he sleeps sitting in a chair and typically notes worsening pain at night. Denies chills, fever otherwise feeling of unwell. History of diabetes mellitus type 2 and last A1c was 6.9. Progress of Wound: Stays healed. Edema improved. Now has CircAid's. - Physical Exam Vital Signs Temp Pulse Resp BP 98.1 F 68 20 H 157/75 H 02/28/20 09:54 02/28/20 09:54 02/28/20 09:54 02/28/20 09:54 General: Alert, Oriented x3, Cooperative, No apparent distress HEENT: Atraumatic, Normocephalic Oral: Moist Mucosa Neck: Supple Lungs: Normal air movement Abdomen: Non Tender, Obese Extremities: No cyanosis, Edema Skin: Ulcer/ Wound Wound Measurements and Assessment WC - Nurse 1 - General Ulcer Measurement Start: 02/14/20 09:38 Freq: Status: Active Protocol: Activity Type Activity Date Activity User E-Sign Co-Sign Detail Recorded Client Recorded Date Recorded By Document 02/28/20 09:54 DL [id number] 02/28/20 10:00 DL 02/28/20 09:54 Wound Center Nurse 1 [Edema Assessment] -Right Calf (cm) 38.5 -Right Ankle (cm) 24.2 -Left Calf (cm) 45.7 -Left Ankle (cm) 28.3 Musculoskeletal: No Muscle Wasting Neurological: Cranial nerves II-XII grossly intact Psych/Mental Status: Normal Affect Debridement Note Post-Debridement Measurements/Treatment WC - Nurse 2 - General Ulcer CM Notes Start: 02/14/20 09:38 Freq: Status: Active Protocol: Activity Type Activity Date Activity User E-Sign Co-Sign Detail Recorded Client Recorded Date Recorded By Document 02/14/20 10:29 MW [id number] 02/14/20 10:34 MW Document 02/21/20 08:44 MW [id number] 02/21/20 08:45 MW 02/14/20 02/21/20 10:29 08:44 Wound Center Nurse 2 #1 RLE Circ -Time 10:31 08:44 -Correct Patient Yes Yes -Correct Side, Site, Position Yes Yes -Correct Procedure Yes Yes -Procedure Performed Yes No -Type of Procedure Debridement -Clinical Debridement Selective -Post Debridement Size (cm) - Length 10.0 0 -Post Debridement Size (cm) - Width 31.0 0 -Post Debridement Size (cm) - Depth 0.1 0 -Total Square (cm) 310.00 0 -Wound/Ulcer Outcome Not Healed Healed- Epithelialized -Ulcer Cleansing Rinsed/ Irrigated with Saline -Foul Odor after Cleansing No -Bioengineered Tissue No -Bleeding Controlled with Pressure -Offloading No -Treatment Response Procedure Tolerated Well Pain Scale: 0-10 Numeric Is Patient Pain Free? Yes Yes No debridement was completed today Assessment/Plan Active Problems (Last Reviewed 01/17/19 @ 10:[address] Cole Espinosa, DO) Ulcer of right lower extremity with fat layer exposed (Chronic) Venous insufficiency of both lower extremities (Chronic) Type 2 diabetes mellitus (Chronic) Assessment: Same as above Plan: Stays healed. CircAid's applied today. He was advised to use this daily. Exercise as tolerated, leg elevation and low-sodium diet also recommended. His questions were answered and he was advised to call with any questions or concerns. Discharge from the wound clinic Office Visits / Consults: [id number] OV L3 Est
== END 2020-03-07 23:59 ==
LOC: WC 10:00
PROVIDERS: PCP Family Medicine Geriatric Medicine; Visit Provider Internal Medicine
DX: L97.912 Non-pressure chronic ulcer of unspecified part of right lower leg with fat layer exposed (principal); I87.2 Venous insufficiency (chronic) (peripheral); E11.9 Type 2 diabetes mellitus without complications; E78.5 Hyperlipidemia, unspecified; I10 Essential (primary) hypertension; M19.90 Unspecified osteoarthritis, unspecified site; Z79.84 Long term (current) use of oral hypoglycemic drugs; Z88.5 Allergy status to narcotic agent
CPT/HCPCS: 29581; 97597; 97598; 99212; 99213; G0463

== ENCOUNTER 2020-04-21 08:19 | Emergency (ER) | payer MEDICARE, OTHER, SELFPAY ==
[2020-04-21 08:20] VITALS: BP 139/105; PULSE 83; RESP 17; TEMP 36.5; O2SAT 98; BMI 32.6
[2020-04-21] MEDS: Morphine 4 MG/ML Syringe IV (08:57)
[2020-04-21] MEDS: Ondansetron 4 MG/2 ML Vial IV (08:58)
--- NOTE | 2020-04-21 09:04 | ED.DCSUM_ITS ---
History of Present Illness Chief Complaint: Flank Pain Informant: Patient - Abdominal Pain/Flank Pain Onset: Today Context: Sudden Onset Timing: Continuous Quality: Aching Location: Left Flank Current Severity: Moderate Maximum Severity: Moderate Worsened by: Nothing Relieved by: Nothing - Nausea/Vomiting/Emesis GI Symptom: Negative for: Nausea, Vomiting - Diarrhea/Melena/Hematochezia GI Symptom: Negative for: Diarrhea, Melena, Hematochezia Associated Symptoms: Negative for: Dysuria, Frequency, Hematuria Narrative: Patient with a longstanding history of kidney stones with several surgeries in the past to remove them, started having pain this morning on the left side that feels similar to a kidney stone. The last one he had was a year ago. He sees a local urology group. Denies any fevers, chills, or other symptoms at this time. He has not taken anything for the pain since he does not have anything. Prior similar symptoms: Yes - Kidney stones - Past Medical History (1) Arthritis Status: Chronic (2) Chronic back pain Status: Chronic (3) Hyperlipemia Status: Chronic (4) Hypertension Status: Chronic (5) Type 2 diabetes mellitus Status: Chronic (6) Venous insufficiency of both lower extremities Status: Chronic (7) Kidney stones Status: Chronic Past Medical History - Allergies and Home Meds Allergies/Adverse Reactions: Allergies oxycodone HCl [From Percocet] Allergy (Intermediate, Verified 04/21/20 08:20) Other shaky, hot, sweaty, nauseated Primary Care Physician: Mitch Mcwilliams Chi, MD [Primary Care Provider] - Surgical History: - - C spine. Surgeries for kidney stones. Smoking Status: Never smoker Review of Systems General: Denies: Chills, Fever, Sweats Eyes: Denies: Visual changes - bilaterally, Diplopia ENT: Denies: Rhinorrhea, Sore throat Cardiovascular: Denies: Chest pain, Palpitations Respiratory: Denies: Dyspnea, Cough, Dyspnea on exertion Gastrointestinal: Reports: Abdominal pain. Denies: Nausea, Vomiting, Diarrhea, Melena, Hematochezia Genitourinary: Denies: Dysuria, Hematuria, Frequency Musculoskeletal: Reports: Back pain, Swelling - Chronic both legs, unchanged. Denies: Extremity Pain Skin: Denies: Rash, Wounds Neurological: Denies: Headache, Weakness, Numbness Physical Exam Vital Signs/Narrative: Vital Signs Temp Pulse Resp BP Pulse Ox 04/21/20 08:20 97.7 F L 83 17 139/105 H 98 Inital Vital Signs reviewed: Yes General: Well nourished, Well developed, No Acute Distress Head: Normocephalic, Atraumatic Eyes: Perrl, EOMI ENT: Moist mucous membranes, No rhinorrhea Neck: Supple, Nontender Cardiovascular: Regular rate, Regular rhythm, No murmurs Respiratory: No distress, CTA bilaterally, Chest nontender Abdomen: Soft, Nondistended, Normal bowel sounds, Tender - Mild left lower quadrant and left upper quadrant. Negative for: Guarding, Rebound tenderness, Pulsatile mass Back: Nontender, Normal Inspection. Negative for: CVA tenderness Extremities: Nontender, Edema - 2+ bilateral lower extremity edema to the knees, symmetric, with signs of stasis dermatitis that appears chronic. Negative for: Calf Tenderness Skin: Normal color, No rash, No Trauma Neurological: Alert, Oriented x3, Cranial nerves II-XII grossly intact, Normal Strength, Normal Sensation, Normal Gait Psychological: Normal affect, Normal Mood Diagnostic/Tx/Re-eval Impressions Abdomen/Pelvis CT 04/21/20 09:06 IMPRESSION: Left perinephric stranding and hydronephrosis and hydroureter due to a 9.5 mm calculus in the distal portion of the left ureter just proximal to the ureterovesical junction. There is also evidence of a 4.4 mm calculus in the distal one third of the left ureter. Stable 6.7 cm x 6.4 cm cyst in the lateral aspect of the right kidney with peripheral findings calcification. Electronically Signed: Maurice Warren, at 9:37 EDT , Service support , 04/21/20 09:06 Abdomen/Pelvis without Cont [CT] Stat Laboratory Results 04/21/20 10:20 Urine Color Yellow Urine Clarity Clear Urine pH 5.0 Ur Specific [place] 1.020 Urine Protein 30 H Urine Glucose (UA) Normal Urine Ketones Negative Urine Occult Blood 250 H Urine Nitrite Negative Urine Bilirubin 1 H Urine Urobilinogen 1 H Ur Leukocyte Esterase 100 H Urine RBC > 100 SEEN Urine WBC 5-10 SEEN Ur Squamous Epith Cells 0-5 SEEN Urine Bacteria 2+ Hyaline Casts 0-5 SEEN Urine Mucus 1+ - Medical Decision Making After Zofran and morphine, the patient's pain is very well controlled and he is comfortable. As above, CT shows 2 stones obstructing the left ureter, one is over 4 mm and the other is over 9. I discussed with Dr. Pham, and he states he will follow-up with the patient in the office tomorrow since his pain is well controlled. He is getting routine blood work tomorrow at a routine doctor's appointment, so we did not get that today since it would not change the management today. I did get a urinalysis, it had some leukocyte esterase in it and some white blood cells as well as blood, I doubt that he has infection as he is not clinically septic or having dysuria, but I sent her for a culture and put him on antibiotics just in case. He is comfortable with this plan in addition to analgesics. ED Disposition - Plan for ED Patient: Disposition: Home or Assisted Living Diagnosis: Ureterolithiasis, Renal colic on left side Instructions: ED Renal Stone w Colic Prescriptions: Cephalexin [Keflex] 500 mg PO TID #30 cap Transmission Status: Pending to [facility] [address] Hydrocodone Bitart/Apap 5-325 [[place] 5MG-325MG] 1 tablet PO Q4H PRN PRN 2 Days #12 tablet PRN Reason: Pain Transmission Status: Received by [facility] Referrals: Mitch Mcwilliams Chi, MD [Primary Care Provider] - Keep Mei appointment Jose Manuel Pham MD [STAFF PHYSICIAN] - 1 Day (Call today for appointment to be seen tomorrow at some point)
--- NOTE | 2020-04-21 09:06 | CT_ITS ---
STUDY: CT ABDOMEN AND PELVIS WITHOUT CONTRAST REASON FOR EXAM: Male, 69 years old. LEFT FLANK PAIN X 2 DAYS. HX OF KIDNEY STONES RADIATION DOSAGE (If Supplied By Facility): CTDIvol = ( 18.70 ) mGy, DLP = ( 995.01 ) mGycm TECHNIQUE: Transaxial images were obtained from the dome of the diaphragm to the symphysis pubis without oral contrast, and without intravenous contrast. Sagittal and coronal images were reconstructed. Individualized dose optimization techniques were used for this CT. COMPARISON: Comparison is made with prior examination dated 02/03/2019. FINDINGS: Stable mild increased linear markings at the lung bases more prominent on the right side suggestive of scarring. Coronary artery calcification. Normal liver. Normal gallbladder and extrahepatic biliary system. Normal spleen. Normal pancreas. Normal bilateral adrenal glands. There is a 6.7 cm x 6.4 cm cyst in the lateral aspect of the right kidney. Fine capsular calcifications are seen. Left perinephric stranding. Mild degree of left hydronephrosis and hydroureter due to a 9.5 mm calculus in the distal portion of the left ureter just proximal to the ureterovesical junction. There is also evidence of a 4.4 mm calculus calculus in the distal one third of the left ureter. There are 2 tiny nonobstructive renal calculi in the lower pole calyx of the left kidney. Normal visualized stomach. Normal small intestine. Normal colon. The appendix is visualized and appears normal. There is diffuse atherosclerotic calcification of the abdominal aorta and its major visceral branches, without a demonstrated aneurysm. Normal inferior vena cava. Normal retroperitoneum. Normal urinary bladder. There are prostatic calcifications. Small right hydrocele. Small bilateral inguinal hernias containing fat. There are diffuse degenerative changes of the visualized lumbar spine. CT/Abdomen/Pelvis without Cont IMPRESSION: Left perinephric stranding and hydronephrosis and hydroureter due to a 9.5 mm calculus in the distal portion of the left ureter just proximal to the ureterovesical junction. There is also evidence of a 4.4 mm calculus in the distal one third of the left ureter. Stable 6.7 cm x 6.4 cm cyst in the lateral aspect of the right kidney with peripheral findings calcification. Electronically Signed: Maurice Warren, at 9:37 EDT , Service support ,
[2020-04-21 10:32] LABS: Color, Urine Yellow (Yellow); Glucose, Dipstick Normal (Normal); Ketone-Dipstick Negative (Negative); Leukocyte Esterase-Dipstick 100 /ul (Negative); Nitrite-Dipstick Negative (Negative); Occult Blood-Urine 250 /ul (Negative); Protein-Dipstick 30 mg/dl (Negative); Urine Clarity Clear (Clear); Urine Urobilinogen 1 mg/dl (Normal)
[2020-04-21 10:33] LABS: Urine Bilirubin Dipstick 1 mg/dL (Negative)
[2020-04-21 10:47] LABS: Bacteria 2+ /hpf (None Seen); Hyaline Cast 0-5 SEEN /lpf (0-5); Mucous, Urine 1+ /hpf (<or=2+); Red Blood Cells-Urine > 100 SEEN /hpf (0-5); Squamous Epithelial Cells - UA 0-5 SEEN /hpf (0-5); White Blood Cells 5-10 SEEN /hpf (0-5)
[2020-04-21 10:52] VITALS: BP 144/93; PULSE 89; RESP 18; O2SAT 98
== END 2020-04-21 11:07 | disposition home or self-care (01) ==
PROVIDERS: Emergency Provider Emergency Medicine; PCP Family Medicine Geriatric Medicine
DX: N13.2 Hydronephrosis with renal and ureteral calculous obstruction (principal); Z87.442 Personal history of urinary calculi; M19.90 Unspecified osteoarthritis, unspecified site; E78.5 Hyperlipidemia, unspecified; I10 Essential (primary) hypertension; E11.9 Type 2 diabetes mellitus without complications; Z79.84 Long term (current) use of oral hypoglycemic drugs; Z79.899 Other long term (current) drug therapy
CPT/HCPCS: 74176; 81001; 87086; 87088; 96374; 96375; 99283; A4216; J2405

== ENCOUNTER → 2020-04-22 | Outpatient (CLI) | payer MEDICARE, OTHER, SELFPAY ==
[2020-04-21 08:20] VITALS: BMI 32.6
[2020-04-22 12:57] LABS: Absolute Lymphocyte Count 1.68 X10^3/uL (0.83-4.51); Absolute Neutrophil Count 5.4 X10^3/uL (2.0-7.7); Basophil# 0.04 X10^3/uL; Basophil% 0.5 % (0-1); Eosinophil# 0.14 X10^3/uL; Eosinophils% 1.8 % (0-5); Hemoglobin 13.5 g/dL (13.0-16.5); Lymphocyte # 1.68 X10^3/ul (4.0); Lymphocyte % 21.9 % (19-41); Mean Corp Hgb Conc 31.4 g/dL (32-36); Mean Corpuscular Hgb 29.4 pg (27.0-32.0); Mean Corpuscular Volume 93.7 fL (80-94); Mean Platelet Vol. 9.8 fl (6.2-12.0); Monocyte# 0.39 X10^3/uL; Monocyte% 5.1 % (0-10); NRBC Flagged by Analyzer 0 % (0-5); Neutrophil % 70.4 % (47-70); Platelet Count 350 K/mm3 (150-450); RBC Distribution Width CV 12.9 % (11.6-14.6); RBC Distribution Width SD 44.7 fl (35.1-43.9); Red Blood Count 4.59 M/mm3 (4.6-6.2); White Blood Count 7.7 K/mm3 (4.4-11.0)
[2020-04-22 13:11] LABS: Vitamin D,25 Hydroxy 33.5 ng/mL
[2020-04-22 13:34] LABS: ALB/GLOB Ratio 1.1 RATIO (0.9-2.4); AST(SGOT) 13 U/L (15-37); Alanine Aminotransfer ALT/SGPT 19 U/L (16-61); Albumin, Serum 3.4 g/dL (3.2-5.0); Alkaline Phosphatase 76 U/L (45-117); Anion Gap 4 (5-15); BUN 25 mg/dL (7-18); BUN/Creat Ratio 19.5 RATIO (10-20); Calcium,Total 8.7 mg/dL (8.5-10.1); Chloride 108 mmol/L (98-107); Creatinine, Serum 1.28 mg/dL (0.70-1.30); EST Glomerular Filtration Rate 59 mL/min (>60); Est Glom Filt Rate - Afr Amer 71 mL/min (>60); Globulin 3.2 g/dL (2.2-4.2); Glucose 128 mg/dL (74-106); Potassium 4.6 mmol/L (3.5-5.1); Protein, Total 6.6 g/dL (6.4-8.2); Sodium Level 141 mmol/L (136-145); Thyroid Stim Hormone (TSH) 1.18 uIU/mL (0.358-3.74)
== END | disposition home or self-care (01) ==
LOC: POLAB3 10:26
PROVIDERS: PCP Family Medicine Geriatric Medicine; Visit Provider Family Medicine Geriatric Medicine
DX: E55.9 Vitamin D deficiency, unspecified (principal); I10 Essential (primary) hypertension
CPT/HCPCS: 36415; 80053; 82306; 84443; 85025

== ENCOUNTER → 2020-04-23 | Outpatient (CLI) | payer MEDICARE, OTHER, SELFPAY ==
[2020-04-21 08:20] VITALS: BMI 32.6
--- NOTE | 2020-04-23 07:44 | EKG12_ITS ---
Test Reason : PRE OP Blood Pressure : / mmHG Vent. Rate : 074 BPM Atrial Rate : 074 BPM P-R Int : 174 ms QRS Dur : 078 ms QT Int : 378 ms P-R-T Axes : 030 006 024 degrees QTc Int : 419 ms Normal sinus rhythm with sinus arrhythmia Normal ECG Confirmed by IVETTE VILLA, SAIDA ([id number]), sound editor MUSA BATISTA ([id number]) on 04/24/2020 1:06:33 PM Referred By: Jose Manuel Pham Confirmed By:SAIDA STEELE MD
== END | disposition home or self-care (01) ==
LOC: PSN 07:40
PROVIDERS: PCP Family Medicine Geriatric Medicine; Referring Provider Urology; Visit Provider Urology
DX: Z01.818 Encounter for other preprocedural examination (principal); E11.9 Type 2 diabetes mellitus without complications; I10 Essential (primary) hypertension; Z11.59 Encounter for screening for other viral diseases
CPT/HCPCS: 87635; 93005; C9803; U0003

== ENCOUNTER → 2020-10-21 10:45 | Outpatient (CLI) | payer MEDICARE, OTHER, SELFPAY ==
[2020-10-21 12:26] LABS: Absolute Lymphocyte Count 1.98 X10^3/uL (0.83-4.51); Absolute Neutrophil Count 4.8 X10^3/uL (2.0-7.7); Basophil# 0.04 X10^3/uL; Basophil% 0.5 % (0-1); Eosinophils% 2.7 % (0-5); Hematocrit 45.4 % (40-54); Hemoglobin 14.5 g/dL (13.0-16.5); Lymphocyte # 1.98 X10^3/ul (4.0); Lymphocyte % 26.7 % (19-41); Mean Corp Hgb Conc 31.9 g/dL (32-36); Mean Corpuscular Hgb 30.4 pg (27.0-32.0); Mean Corpuscular Volume 95.2 fL (80-94); Mean Platelet Vol. 9.7 fl (6.2-12.0); Monocyte# 0.39 X10^3/uL; Monocyte% 5.3 % (0-10); NRBC Flagged by Analyzer 0 % (0-5); Neutrophil # 4.78 X10^3/uL (2.7-7.7); Neutrophil % 64.5 % (47-70); Platelet Count 336 K/mm3 (150-450); RBC Distribution Width CV 12.9 % (11.6-14.6); Red Blood Count 4.77 M/mm3 (4.6-6.2); White Blood Count 7.4 K/mm3 (4.4-11.0)
[2020-10-21 12:39] LABS: Vitamin D,25 Hydroxy 28.4 ng/mL
[2020-10-21 12:50] LABS: ALB/GLOB Ratio 1.2 RATIO (0.9-2.4); AST(SGOT) 14 U/L (15-37); Alanine Aminotransfer ALT/SGPT 24 U/L (16-61); Albumin, Serum 3.7 g/dL (3.2-5.0); Alkaline Phosphatase 83 U/L (45-117); Anion Gap 6 (5-15); BUN 22 mg/dL (7-18); BUN/Creat Ratio 20.6 RATIO (10-20); Calcium,Total 9.8 mg/dL (8.5-10.1); Chloride 106 mmol/L (98-107); Creatinine, Serum 1.07 mg/dL (0.70-1.30); EST Glomerular Filtration Rate 72 mL/min (>60); Est Glom Filt Rate - Afr Amer 87 mL/min (>60); Globulin 3.2 g/dL (2.2-4.2); Glucose 97 mg/dL (74-106); Potassium 4.4 mmol/L (3.5-5.1); Protein, Total 6.9 g/dL (6.4-8.2); Sodium Level 141 mmol/L (136-145); Thyroid Stim Hormone (TSH) 1.41 uIU/mL (0.358-3.74)
== END ==
PROVIDERS: PCP Family Medicine Geriatric Medicine; Visit Provider Family Medicine Geriatric Medicine
DX: E11.65 Type 2 diabetes mellitus with hyperglycemia (principal); E55.9 Vitamin D deficiency, unspecified; I10 Essential (primary) hypertension
CPT/HCPCS: 36415; 80053; 82306; 84443; 85025

== ENCOUNTER → 2021-04-23 10:52 | Outpatient (CLI) | payer MEDICARE, OTHER, SELFPAY ==
[2021-04-23 12:39] LABS: Absolute Lymphocyte Count 1.71 X10^3/uL (0.83-4.51); Absolute Neutrophil Count 4.5 X10^3/uL (2.0-7.7); Basophil# 0.03 X10^3/uL; Basophil% 0.4 % (0-1); Eosinophil# 0.13 X10^3/uL; Eosinophils% 1.9 % (0-5); Hematocrit 42.5 % (40-54); Hemoglobin 13.5 g/dL (13.0-16.5); Lymphocyte # 1.71 X10^3/ul (0.83-4.51); Lymphocyte % 24.9 % (19-41); Mean Corp Hgb Conc 31.8 g/dL (32-36); Mean Corpuscular Hgb 29.7 pg (27.0-32.0); Mean Corpuscular Volume 93.6 fL (80-94); Mean Platelet Vol. 9.9 fl (6.2-12.0); Monocyte# 0.44 X10^3/uL; Monocyte% 6.4 % (0-10); NRBC Flagged by Analyzer 0 % (0-5); Neutrophil # 4.52 X10^3/uL (2.7-7.7); Platelet Count 309 K/mm3 (150-450); RBC Distribution Width CV 13.8 % (11.6-14.6); RBC Distribution Width SD 47.3 fl (35.1-43.9); Red Blood Count 4.54 M/mm3 (4.6-6.2); White Blood Count 6.9 K/mm3 (4.4-11.0)
[2021-04-23 13:20] LABS: ALB/GLOB Ratio 1.1 RATIO (0.9-2.4); AST(SGOT) 15 U/L (15-37); Alanine Aminotransfer ALT/SGPT 19 U/L (16-61); Albumin, Serum 3.6 g/dL (3.2-5.0); Alkaline Phosphatase 70 U/L (45-117); Anion Gap 6 (5-15); BUN 30 mg/dL (7-18); BUN/Creat Ratio 25.9 RATIO (10-20); Calcium,Total 9.1 mg/dL (8.5-10.1); Chloride 105 mmol/L (98-107); Creatinine, Serum 1.16 mg/dL (0.70-1.30); EST Glomerular Filtration Rate 66 mL/min (>60); Est Glom Filt Rate - Afr Amer 79 mL/min (>60); Globulin 3.4 g/dL (2.2-4.2); Glucose 96 mg/dL (74-106); Sodium Level 139 mmol/L (136-145)
== END ==
PROVIDERS: PCP Family Medicine Geriatric Medicine; Visit Provider Family Medicine Geriatric Medicine
DX: E11.65 Type 2 diabetes mellitus with hyperglycemia (principal); E55.9 Vitamin D deficiency, unspecified; I10 Essential (primary) hypertension
CPT/HCPCS: 36415; 80053; 82306; 84443; 85025

== ENCOUNTER → 2021-06-24 08:31 | Outpatient (CLI) | payer MEDICARE, OTHER, SELFPAY ==
[2021-06-24 10:58] LABS: PSA,Total - Annual Screen 0.59 ng/mL (0.00-4.00)
== END ==
PROVIDERS: PCP Family Medicine Geriatric Medicine; Referring Provider Urology; Visit Provider Urology
DX: Z12.5 Encounter for screening for malignant neoplasm of prostate (principal)
CPT/HCPCS: 36415; 84153; G0103

== ENCOUNTER 2021-10-22 09:05 | Outpatient (CLI) | payer MEDICARE, OTHER, SELFPAY ==
[2021-10-22 12:35] LABS: Absolute Lymphocyte Count 1.74 X10^3/uL (0.83-4.51); Absolute Neutrophil Count 4.2 X10^3/uL (2.0-7.7); Basophil# 0.03 X10^3/uL; Basophil% 0.5 % (0-1); Eosinophil# 0.09 X10^3/uL; Eosinophils% 1.4 % (0-5); Hematocrit 40.6 % (40-54); Hemoglobin 13.7 g/dL (13.0-16.5); Lymphocyte # 1.74 X10^3/ul (0.83-4.51); Lymphocyte % 26.4 % (19-41); Mean Corp Hgb Conc 33.7 g/dL (32-36); Mean Corpuscular Hgb 31.7 pg (27.0-32.0); Mean Platelet Vol. 10.3 fl (6.2-12.0); Monocyte# 0.48 X10^3/uL; Monocyte% 7.3 % (0-10); NRBC Flagged by Analyzer 0 % (0-5); Neutrophil # 4.24 X10^3/uL (2.7-7.7); Neutrophil % 64.1 % (47-70); Platelet Count 294 K/mm3 (150-450); RBC Distribution Width CV 12.6 % (11.6-14.6); RBC Distribution Width SD 43.2 fl (35.1-43.9); Red Blood Count 4.32 M/mm3 (4.6-6.2); White Blood Count 6.6 K/mm3 (4.4-11.0)
[2021-10-22 12:54] LABS: Vitamin D,25 Hydroxy 13.4 ng/mL
[2021-10-22 13:10] LABS: ALB/GLOB Ratio 1.2 RATIO (0.9-2.4); AST(SGOT) 15 U/L (15-37); Alanine Aminotransfer ALT/SGPT 17 U/L (16-61); Albumin, Serum 3.7 g/dL (3.2-5.0); Alkaline Phosphatase 80 U/L (45-117); Anion Gap 4 (5-15); BUN 26 mg/dL (7-18); BUN/Creat Ratio 24.3 RATIO (10-20); Calcium,Total 9.2 mg/dL (8.5-10.1); Chloride 109 mmol/L (98-107); Creatinine, Serum 1.07 mg/dL (0.70-1.30); EST Glomerular Filtration Rate 72 mL/min (>60); Est Glom Filt Rate - Afr Amer 87 mL/min (>60); Globulin 3.2 g/dL (2.2-4.2); Glucose 112 mg/dL (74-106); Potassium 4.1 mmol/L (3.5-5.1); Protein, Total 6.9 g/dL (6.4-8.2); Sodium Level 142 mmol/L (136-145); Thyroid Stim Hormone (TSH) 1.22 uIU/mL (0.358-3.74)
== END 2021-10-22 23:59 | disposition home or self-care (01) ==
LOC: POLAB3 09:08
PROVIDERS: PCP Family Medicine Geriatric Medicine; Visit Provider Family Medicine Geriatric Medicine
DX: E11.65 Type 2 diabetes mellitus with hyperglycemia (principal); E55.9 Vitamin D deficiency, unspecified; F52.8 Other sexual dysfunction not due to a substance or known physiological condition; I10 Essential (primary) hypertension
CPT/HCPCS: 36415; 80053; 82306; 84403; 84443; 85025

== ENCOUNTER 2021-11-07 08:42 | Emergency (ER) | payer MEDICARE, OTHER, SELFPAY ==
[2021-11-07 08:44] VITALS: BP 180/94; PULSE 78; RESP 18; TEMP 35.8; O2SAT 98; BMI 34.2
--- NOTE | 2021-11-07 08:58 | VDLE_ITS ---
Reason For Study: Pain RIGHT GSV is normal. CFV is compressible, spontaneous, phasic, competent and demonstrates normal augmentation. FV is compressible, spontaneous, phasic, competent and demonstrates normal augmentation. POP V is compressible, spontaneous, phasic, competent and demonstrates normal augmentation. T/P Trunk is compressible. PTV is compressible. RT PerV is compressible. Procedure This is a venous duplex using B-mode, color flow and spectral Doppler. Exam performed portable in ED. The study was technically difficult. A preliminary report was called and/or faxed to Dr. Petersen. VL/Venous Duplex US, Unilateral Interpretation Summary Deep veins of the right lower extremity are patent and compressible segmentally . There is no evidence of right lower extremity deep vein thrombosis. Valvular competence venkata ears intact within the proximal deep venous system on the right . The right great saphenous vein a ppears patent and compressible segmentally. Ordering Physician: Robert Petersen Referring Physician: Mitch Mcwilliams Chi Performed By: Mary Gotti, RDCS, RVT
--- NOTE | 2021-11-07 08:59 | ED.VIS.LOWEX ---
HPI History of Present Illness Chief Complaint: Lower Extremity Injury Detail of Chief Complaint: Right leg pain that started 2 weeks ago Informant: patient Narrative Narrative: Patient presents to the emergency department with complaint of right leg pain that started 2 weeks ago. Patient denies any chest pain or shortness of breath. He denies any injury to his leg. Patient denies recent travel or surgery. No history of PE or DVT. Patient complains of pain with certain movements. He denies any back pain. He denies abdominal pain. Patient has not had pain like this before. He has taken Tylenol for the pain and initially seemed to help but last night could not sleep. [facility] Medical History (Updated 11/07/21 @ 10:[address] Robert Petersen DO) Arthritis Chronic back pain Decreased hearing Hyperlipemia Hypertension Kidney stones Type 2 diabetes mellitus Home Medications atorvastatin 40 mg PO QHS 11/07/18 [History Last Taken Unknown] acetaminophen 500 mg PO Q4H PRN PRN #20 tablet 11/08/18 [Rx Last Taken Unknown] lisinopril 5 mg PO DAILY 04/25/19 [History Last Taken 05/02/19 05:00] metformin 1,000 mg PO BID 02/03/20 [History Last Taken Unknown] cephalexin 500 mg PO TID #30 cap 04/21/20 [Rx Last Taken Unknown] hydrocodone-acetaminophen 1 tab PO Q4H PRN PRN 2 Days #14 tablet 11/07/21 [Rx Last Taken Unknown] Allergy/AdvReac Type Severity Reaction Status Date / Time oxycodone HCl [From Percocet] Allergy Intermediate Other Verified 11/07/21 08:44 Family History Father Mental disorder Heart disease Mother Heart disease High cholesterol Surgical History History of cervical spinal surgery History of kidney stones Social History (Updated 01/17/19 @ 10:[address] Cole Espinosa DO) Smoking Status: Never smoker alcohol intake: never substance use type: does not use what type of physical activity do you participate in: walking frequency: daily ROS ROS ED Constitutional Constitutional ED: Reports systems reviewed and no addt'l complaints, except as documented; Denies body ache(s), change in weight or chills Eyes Eyes: Denies acute decrease in peripheral vision, change in vision, double vision or loss of vision ENT ENT ED: Reports none; Denies ear pain, lip swelling, loss taste/smell, neck pain, otalgia or sore throat Cardiovascular Cardiovascular: Reports none; Denies abdominal pain, chest pain with activity, leg edema, lightheadedness, palpitations, rapid heart rate or syncope Respiratory/Chest Respiratory/Chest: Reports none; Denies change in mental status, dry cough, dyspnea, hemoptysis, shortness of breath at rest or shortness of breath with exertion Gastrointestinal Gastrointestinal: Reports none; Denies abdominal pain, change in stool character, diarrhea, hematemesis, hematochezia, melena, rectal bleeding or vomiting Genitourinary Genitourinary ED: Reports none; Denies abdominal discomfort, anuria, dysuria, genital pain or polyuria Musculoskeletal Musculoskeletal: Reports none and other Details: Right leg pain ; Denies arthralgias, back pain, difficulty walking, extremity pain, muscle weakness or myalgias Integumentary Reports none; Denies abscess or rash Neurologic Neurologic: Reports none; Denies abnormal gait, confusion, focal weakness, frequent falls, headache(s), loss of vision, numbness, paresthesias, radicular pain, vertigo or weakness Psychiatric Psychiatric: Reports systems reviewed and no addt'l complaints, except as documented and none; Denies behavioral changes, confusion, difficulty concentrating, hallucinations, suicidal ideation, tactile hallucinations or visual hallucinations Endocrine Endocrinology: Denies none, cold intolerance, excessive sweating, fatigue or heat intolerance Hematologic/Lymphatic Hematologic/Lymphatic: Reports none; Denies anemia, easy bleeding or easy bruising Allergic/Immunologic Allergic/Immunologic ED: Denies as per HPI, none, lip swelling, mouth swelling, throat swelling, tongue swelling or hives EXAM Physical Exam Const Vital Signs: 11/07/21 08:44 Temperature 96.5 F L Temperature Source Temporal Pulse Rate 78 Respiratory Rate 18 Blood Pressure 180/94 H Blood Pressure Mean 122 Pulse Ox 98 Oxygen Delivery Method Room Air Positive well nourished and well developed General Appearance ED: well developed and NAD HEENT Reports TM's clear and moist mucous membranes normocephalic and atraumatic; Negative for trauma or tenderness Tympanic Membrane ED: Yes TM's clear Eyes PERRL and EOMs intact bilaterally General Eye ED: Negative for pale conjunctiva or scleral icterus Neck no lymphadenopathy, supple and no JVD General: Negative for tenderness Chest Wall inspection of chest normal and palpation of chest normal Chest: Negative for tenderness Resp normal respiratory effort and clear to auscultation bilaterally Effort and Inspection: Negative for respiratory distress or pain with movement Auscultation: Negative for rhonchi, wheezes or diminished lung sounds Cardio regular rate, regular rhythm, S1 normal heart sound, S2 normal heart sound and no murmurs Peripheral Pulses: pulses 2+ throughout GI normal to inspection, nondistended, normoactive bowel sounds, soft to palpation, non-tender, non-distended and no masses Back/Spine no CVA tenderness and no thoracic nor lumbar tenderness Extremity Extremity Narrative: Right leg-patient does have some mild tenderness over the right hip and lateral as well as medial thigh diffusely. No ropes or cords are palpated. The pain seems to be in the right groin as well. He has no pain below the knee. He does have +2 edema both lower extremities that symmetric. No cellulitic changes noted. Normal pulses bilaterally. General Extremety ED: Yes edema General Extremity: edema Neuro oriented x3, CN's II-XII intact bilaterally, no sensory deficits noted and gait normal Sensorium / Orientation: awake, alert, oriented to person, oriented to place and oriented to time Motor Exam: strength 5/5 throughout and strength abnormal Psych mental status grossly normal Skin no rashes or lesions noted and no wounds MDM MDM MDM Narrative Medical decision making narrative: Patient had a venous Doppler of the right lower extremity which was negative for DVT. Patient also had x-rays of the right femur which showed severe arthritic changes/degenerative changes of the right hip joint. At this point etiology of his pain is unclear although I suspect it may be related to these arthritic changes. Patient will be given a prescription for Leckrone for pain. Patient advised to follow-up with his primary care physician within next 3 to 5 days. Radiography Diagnostic Testing: Clinical Impression(s) from Imaging Studies Femur X-Ray 11/07/21 09:33 IMPRESSION: Severe DJD of the right hip joint Electronically Signed: Aydin Durbin MD at 9:45 EDT Reading Location ID and State: [facility] / [place] , Service support , 2 view x-rays of right hip obtained showed no fractures or dislocations on my interpretation. Radiology felt patient had severe degenerative joint disease of the right hip joint. Discharge Plan Triage Chief Complaint: Lower Extremity Injury ED Provider: Robert Petersen Dx/Rx/DC Orders Clinical Impression: Leg pain, right Instructions: ED Pain, Acute, Uncertain Cause Prescriptions: New hydrocodone-acetaminophen [hydrocodone-acetaminophen] 1 TABLET tablet 1 tab PO Q4H PRN PRN (Reason: Pain) 2 Days Qty: 14 RF: 0 No Action atorvastatin 40 MG tablet 40 mg PO QHS RF: 0 acetaminophen 500 MG tablet 500 mg PO Q4H PRN PRN (Reason: Pain) Qty: 20 RF: 0 lisinopril 5 MG tablet 5 mg PO DAILY RF: 0 metformin 500 MG tablet 1,000 mg PO BID RF: 0 cephalexin 500 MG capsule 500 mg PO TID Qty: 30 RF: 0 Primary Care Provider: Mitch Mcwilliams Chi Referrals: Mitch Mcwilliams Chi, MD [Primary Care Provider] - 3-5 Days Disposition Disposition: Home, Self Care
[2021-11-07] MEDS: Ondansetron 4 MG/2 ML Vial IM (09:14)
[2021-11-07] MEDS: Morphine 4 MG/ML Syringe IM (09:14)
--- NOTE | 2021-11-07 09:33 | RAD_ITS ---
STUDY: X-RAY - RIGHT FEMUR REASON FOR STUDY: Male, 71 years old. pain TECHNIQUE: 4 view(s) of the femur. COMPARISON: None. FINDINGS: Severe proximal narrowing of the right hip joint. Mild peripheral cortical osteophyte formation of the femoral head neck junction and acetabulum. Normal visualized femoral shaft. Normal visualized soft tissue structure. There is no demonstrated fracture or destructive process. There are atherosclerotic vascular calcifications. RAD/Femur Min 2 Views IMPRESSION: Severe DJD of the right hip joint Electronically Signed: Aydin Durbin MD at 9:45 EDT ,
== END 2021-11-07 11:10 | disposition home or self-care (01) ==
PROVIDERS: Emergency Provider Emergency Medicine; PCP Family Medicine Geriatric Medicine; Visit Provider Emergency Medicine
DX: M79.604 Pain in right leg (principal); E11.9 Type 2 diabetes mellitus without complications; M19.90 Unspecified osteoarthritis, unspecified site; I10 Essential (primary) hypertension; E78.5 Hyperlipidemia, unspecified; G89.29 Other chronic pain; M54.9 Dorsalgia, unspecified; Z79.899 Other long term (current) drug therapy; Z79.84 Long term (current) use of oral hypoglycemic drugs
CPT/HCPCS: 73552; 93971; 96372; 99282; J2405

== ENCOUNTER 2021-11-12 12:02 | Outpatient (CLI) | payer MEDICARE, OTHER, SELFPAY ==
--- NOTE | 2021-11-12 12:10 | RAD_ITS ---
EXAM: XR LUMBOSACRAL SPINE, 2 OR 3 VIEWS CLINICAL INDICATION: Low back pain. TECHNIQUE: Frontal and lateral views of the lumbar spine and sacrum. This report was created using [employer] technology. COMPARISON: None. FINDINGS: VERTEBRAE: Minimal degenerative anterolisthesis of L4 on L5. Minimal anterior wedging of T12 superior endplate is presumably from remote injury. Normal lumbar vertebral body heights. Preservation of the normal lumbar lordosis. No significant facet arthropathy. DISC SPACES: Pronounced disc space height narrowing at L4-L5 and L5-S1 disc space levels. Moderate L3-L4 disc space height narrowing. VASCULATURE: Dense vascular calcifications along the abdominal aorta. GASTROINTESTINAL TRACT: Unremarkable as visualized. Included bowel gas pattern is non-obstructive. OTHERS: Pronounced degenerative arthropathy of the right hip joint. RAD/Lumbar Spine 2 or 3 Views IMPRESSION: 1. No acute findings in the lumbar spine. 2. Minimal degenerative anterolisthesis of L4 on L5. 3. Pronounced degenerative disc space height narrowing at L4-L5 and L5-S1 disc space levels. 4. Pronounced degenerative osteoarthropathy of the right hip joint, worse since 04/23/2019. Electronically Signed: Morgan Horn MD at 14:41 EDT ,
== END 2021-11-12 23:59 | disposition home or self-care (01) ==
LOC: RAD 12:03
PROVIDERS: PCP Family Medicine Geriatric Medicine; Visit Provider Family Medicine Geriatric Medicine
DX: M54.50 Low back pain, unspecified (principal)
CPT/HCPCS: 72100

== ENCOUNTER 2021-11-17 18:03 | Emergency (ER) | payer MEDICARE, OTHER, SELFPAY ==
[2021-11-17 18:04] VITALS: BP 164/99; PULSE 90; RESP 18; TEMP 36.6; O2SAT 98; BMI 33.2
--- NOTE | 2021-11-17 18:38 | CT_ITS ---
EXAM: CT RIGHT LOWER EXTREMITY WITHOUT INTRAVENOUS CONTRAST CLINICAL INDICATION: pain -- worsened pain with negative xrays TECHNIQUE: Helically acquired images were obtained of the right lower extremity without intravenous contrast. 2-D reformats were performed by the technologist. This CT exam was performed using one or more of the following dose reduction techniques: automated exposure control, adjustment of the mA and/or kV according to patient size, and/or use of iterative reconstruction technique. This report was created using [employer] report Lala technology. RADIATION DOSE: CTDIvol = 24.38 mGy, DLP = 1964.57 mGy-cm COMPARISON: None. FINDINGS: BONES/JOINTS: Moderate degenerative findings of the right hip. No acute fracture. No subluxation. Normal alignment. SOFT TISSUES: Unremarkable. No soft tissue swelling or gas. No radiopaque foreign body. VASCULATURE: There are atherosclerotic vascular calcifications. BLADDER: The urinary bladder is distended. This can suggest urinary retention. CT/Extremity Lower without Contra IMPRESSION: 1. The urinary bladder is distended. This can suggest urinary retention. 2. Moderate degenerative findings of the right hip. Electronically Signed: Deng Aguayo MD at 19:42 EDT ,
--- NOTE | 2021-11-17 18:41 | EX.ED.DYSGE1 ---
HPI History of Present Illness Chief Complaint: Lower Extremity Injury Informant: patient Onset/Context/Timing Onset: Days Narrative Narrative: Patient presents with 10-day history of right hip pain. Initially denied any injury. He was seen in the ER a week and a half ago and had negative x-rays and states he had a negative ultrasound of his leg. He was seen by his PCP a few days later. He states he was given a shot in each hip and told to follow-up in April. Since that time has had increased pain. He does report having 3 falls over the past 3 days. He is currently taking Naprosyn and Tylenol for pain. [facility] Medical History (Updated 11/17/21 @ 22:[address] Kiley Sarabia MD) Arthritis Chronic back pain Decreased hearing Hyperlipemia Hypertension Kidney stones Type 2 diabetes mellitus Home Medications atorvastatin 40 mg PO QHS 11/07/18 [History Last Taken Unknown] acetaminophen 500 mg PO Q4H PRN PRN #20 tablet 11/08/18 [Rx Last Taken Unknown] lisinopril 5 mg PO DAILY 04/25/19 [History Last Taken 05/02/19 05:00] metformin 1,000 mg PO BID 02/03/20 [History Last Taken Unknown] cephalexin 500 mg PO TID #30 cap 04/21/20 [Rx Last Taken Unknown] baclofen 10 mg PO DAILY 11/17/21 [History Last Taken Unknown] diazepam [Valium] 2 mg PO BID PRN #10 tab 11/17/21 [Rx Last Taken Unknown] gabapentin 100 mg PO DAILY 11/17/21 [History Last Taken Unknown] hydrocodone-acetaminophen 1 tab PO Q6H PRN 3 Days #12 tab 11/17/21 [Rx Last Taken Unknown] naproxen 500 mg PO DAILY 11/17/21 [History Last Taken Unknown] prednisone 40 mg PO DAILY #8 tab 11/17/21 [Rx Last Taken Unknown] Allergy/AdvReac Type Severity Reaction Status Date / Time oxycodone HCl [From Percocet] Allergy Intermediate Other Verified 11/17/21 18:07 Family History Father Mental disorder Heart disease Mother Heart disease High cholesterol Surgical History History of cervical spinal surgery History of kidney stones Social History Smoking Status: Never smoker alcohol intake: never substance use type: does not use what type of physical activity do you participate in: walking frequency: daily ROS ROS ED Constitutional Constitutional ED: Denies chills or fever(s) Eyes Eyes: Denies change in vision ENT ENT ED: Denies sore throat Cardiovascular Cardiovascular: Denies chest pain Respiratory/Chest Respiratory/Chest: Denies cough or dyspnea Gastrointestinal Gastrointestinal: Denies abdominal pain, diarrhea, nausea or vomiting Genitourinary Genitourinary ED: Denies dysuria Musculoskeletal Musculoskeletal: Reports arthralgias; Denies back pain Integumentary Denies rash Neurologic Neurologic: Denies headache(s) or paresthesias Allergic/Immunologic Allergic/Immunologic ED: Denies urticaria EXAM Physical Exam Const Vital Signs: 11/17/21 18:04 Temperature 97.9 F Temperature Source Temporal Pulse Rate 90 Respiratory Rate 18 Blood Pressure 164/99 H Blood Pressure Mean 120 Pulse Ox 98 Oxygen Delivery Method Room Air Positive well nourished and well developed General Appearance ED: well developed HEENT Reports moist mucous membranes Eyes PERRL and EOMs intact bilaterally Neck supple Chest Wall inspection of chest normal and palpation of chest normal Resp normal respiratory effort and clear to auscultation bilaterally Cardio regular rate and regular rhythm GI non-tender Palpation: soft Back/Spine Back/Spine Narrative: Mild tenderness right posterior hip and right sciatic notch. Extremity normal to inspection Extremity Narrative: No reproducible tenderness over the thigh or lower leg. Strong distal pulses. Chronic venous skin changes noted to the lower extremities with a small superficial ulceration on the right. Neuro oriented x3 Sensorium / Orientation: alert Psych Mood & Affect: anxious MDM MDM MDM Narrative Medical decision making narrative: Blood work and CT scan of the right hip obtained. Patient given morphine initially followed by dose of Valium for continued spasms. Lab Data Attestation: I reviewed the patient's lab results. Labs: Laboratory Results - last 24 hr 11/17/21 11/17/21 18:55 18:55 WBC 10.9 RBC 4.30 L Hgb 13.4 Hct 39.7 L MCV 92.3 MCH 31.2 MCHC 33.8 RDW Std Deviation 43.9 RDW Coeff of Javid 13.0 Plt Count 343 MPV 9.6 Immature Gran % (Auto) 0.900 Neut % (Auto) 71.9 H Lymph % (Auto) 19.4 Schoolcraft % (Auto) 5.9 Eos % (Auto) 1.6 Baso % (Auto) 0.3 Absolute Neuts (auto) 7.9 H Absolute Lymphs (auto) 2.12 Nucleated RBC % 0 Sodium 142 Potassium 4.5 Chloride 110 H Carbon Dioxide 27.0 Anion Gap 5 BUN 37 H Creatinine 1.08 Estim Creat Clear Calc 60.92 Est GFR (MDRD) Af Amer 86 Est GFR (MDRD) Non-Af 71 BUN/Creatinine Ratio 34.3 H Glucose 114 H Calcium 9.5 Radiography Diagnostic Testing: Clinical Impression(s) from Imaging Studies Lower Extremity CT 11/17/21 18:38 IMPRESSION: 1. The urinary bladder is distended. This can suggest urinary retention. 2. Moderate degenerative findings of the right hip. Electronically Signed: Deng Aguayo MD at 19:42 EDT Reading Location ID and State: [facility] / [place] , Service support , Treatment and Re-Evaluation Narrative: Lab work is unremarkable. CT scan reveals moderate degenerative changes of the right hip. Patient's pain was improved following initial dose of morphine and Valium. He was given a second dose of morphine. At this time he is sitting up in the bedside chair. He thinks he can go home. He will be written for [place], prednisone, Valium. He is to follow-up with Dr. Mcwilliams in 1 week if not improved. Discharge Plan Triage Chief Complaint: Lower Extremity Injury ED Provider: Kiley Sarabia Dx/Rx/DC Orders Clinical Impression: Sciatica Instructions: ED Sciatica Prescriptions: New hydrocodone-acetaminophen 5-325 mg tablet 1 tab PO Q6H PRN (Reason: pain) 3 Days Qty: 12 RF: 0 diazepam [Valium] 2 mg tablet 2 mg PO BID PRN (Reason: muscle spasm) Qty: 10 RF: 0 prednisone 20 mg tablet 40 mg PO DAILY Qty: 8 RF: 0 No Action atorvastatin 40 MG tablet 40 mg PO QHS RF: 0 acetaminophen 500 MG tablet 500 mg PO Q4H PRN PRN (Reason: Pain) Qty: 20 RF: 0 lisinopril 5 MG tablet 5 mg PO DAILY RF: 0 metformin 500 MG tablet 1,000 mg PO BID RF: 0 cephalexin 500 MG capsule 500 mg PO TID Qty: 30 RF: 0 gabapentin 100 mg capsule 100 mg PO DAILY RF: 0 naproxen 500 mg tablet 500 mg PO DAILY RF: 0 baclofen 10 mg tablet 10 mg PO DAILY RF: 0 Primary Care Provider: Mitch Mcwilliams Chi Referrals: Mitch Mcwilliams Chi, MD [Primary Care Provider] - 1 Week Disposition Disposition: Home, Self Care
[2021-11-17] MEDS: Morphine 4 MG/ML Syringe IV ×2 (18:56→21:02)
[2021-11-17] MEDS: Ondansetron 4 MG/2 ML Vial IV (18:56)
[2021-11-17 19:23] LABS: Absolute Lymphocyte Count 2.12 X10^3/uL (0.83-4.51); Absolute Neutrophil Count 7.9 X10^3/uL (2.0-7.7); Basophil# 0.03 X10^3/uL; Basophil% 0.3 % (0-1); Eosinophil# 0.17 X10^3/uL; Eosinophils% 1.6 % (0-5); Hematocrit 39.7 % (40-54); Hemoglobin 13.4 g/dL (13.0-16.5); Lymphocyte # 2.12 X10^3/ul (0.83-4.51); Lymphocyte % 19.4 % (19-41); Mean Corp Hgb Conc 33.8 g/dL (32-36); Mean Corpuscular Hgb 31.2 pg (27.0-32.0); Mean Corpuscular Volume 92.3 fL (80-94); Mean Platelet Vol. 9.6 fl (6.2-12.0); Monocyte# 0.65 X10^3/uL; Monocyte% 5.9 % (0-10); NRBC Flagged by Analyzer 0 % (0-5); Neutrophil # 7.87 X10^3/uL (2.7-7.7); Neutrophil % 71.9 % (47-70); Platelet Count 343 K/mm3 (150-450); RBC Distribution Width SD 43.9 fl (35.1-43.9); White Blood Count 10.9 K/mm3 (4.4-11.0)
[2021-11-17 19:24] LABS: Anion Gap 5 (5-15); BUN 37 mg/dL (7-18); BUN/Creat Ratio 34.3 RATIO (10-20); Calcium,Total 9.5 mg/dL (8.5-10.1); Chloride 110 mmol/L (98-107); Creatinine, Serum 1.08 mg/dL (0.70-1.30); EST Glomerular Filtration Rate 71 mL/min (>60); Est Glom Filt Rate - Afr Amer 86 mL/min (>60); Estimated Creatinine Clearance 60.92 ml/min; Glucose 114 mg/dL (74-106); Potassium 4.5 mmol/L (3.5-5.1); Sodium Level 142 mmol/L (136-145)
[2021-11-17] MEDS: diazePAM 5 MG Tablet 2.5 MG PO (20:08)
[2021-11-17] MEDS: predniSONE 20 MG Tablet 40 MG PO (21:02)
== END 2021-11-17 22:40 | disposition home or self-care (01) ==
PROVIDERS: Emergency Provider Emergency Medicine; PCP Family Medicine Geriatric Medicine; Visit Provider Emergency Medicine
DX: M54.30 Sciatica, unspecified side (principal); E11.9 Type 2 diabetes mellitus without complications; I10 Essential (primary) hypertension; E78.5 Hyperlipidemia, unspecified; M19.90 Unspecified osteoarthritis, unspecified site; Z79.899 Other long term (current) drug therapy; Z79.84 Long term (current) use of oral hypoglycemic drugs; G89.29 Other chronic pain; M25.551 Pain in right hip
CPT/HCPCS: 73700; 80048; 85025; 96374; 96375; 96376; 99283; A4216; J2405

== ENCOUNTER 2021-11-22 17:58 | Observation (INO) | payer MEDICARE, OTHER, SELFPAY ==
[2021-11-22 17:59] VITALS: BP 163/99; PULSE 102; RESP 18; TEMP 36.8; O2SAT 97; BMI 33.2
--- NOTE | 2021-11-22 18:19 | ED.VIS.FALL ---
HPI HPI - Fall History of Present Illness Chief Complaint: Fall Informant: patient Occured/Mechanism Occurred: Today and Hours (2) Mechanism/Context: Yes trip Fall down steps #: 4 Pain/Injury Pain Location: head and lower extremity (Right hip and left knee) Quality of Pain: - (Cramping) Worsened by: Movement Relieved by: Rest Associated Symptoms Associated Symptoms: Negative for Parasthesias, Weakness, Loss of consciousness and Amnesia Narrative Narrative: Patient presents after a fall that occurred today. Patient states he was walking up the steps when he lost his balance and fell. Patient fell down approximately 4 steps. Patient hit the left side of his head. Patient also complains of pain in his left knee and right hip and thigh. Patient denies any loss of consciousness. Patient had difficulty ambulating after the fall. Patient denies any paresthesias or weakness. Patient states his pain is worse with certain movements and better with rest. Patient describes his pain is cramping. Patient admits to chronic neck pain but denies any new neck pain. Tetanus Immunization: <5 years [facility] Medical History (Updated 11/22/21 @ 21:[address] Abdias Nicole, DO) Arthritis Chronic back pain Decreased hearing Hyperlipemia Hypertension Kidney stones Type 2 diabetes mellitus Home Medications atorvastatin 40 mg PO QHS 11/07/18 [History Last Taken Unknown] acetaminophen 500 mg PO Q4H PRN PRN #20 tablet 11/08/18 [Rx Last Taken Unknown] lisinopril 5 mg PO DAILY 04/25/19 [History Last Taken 05/02/19 05:00] metformin 500 mg PO BID 02/03/20 [History Last Taken Unknown] diazepam [Valium] 2 mg PO BID PRN #10 tab 11/17/21 [Rx Last Taken Unknown] gabapentin 100 mg PO DAILY 11/17/21 [History Last Taken Unknown] prednisone 40 mg PO DAILY #8 tab 11/17/21 [Rx Last Taken Unknown] Allergy/AdvReac Type Severity Reaction Status Date / Time oxycodone HCl [From Percocet] Allergy Intermediate Other Verified 11/22/21 18:01 Family History Father Mental disorder Heart disease Mother Heart disease High cholesterol Surgical History History of cervical spinal surgery History of kidney stones Social History Smoking Status: Never smoker alcohol intake: never substance use type: does not use what type of physical activity do you participate in: walking frequency: daily ROS ROS ED Constitutional Constitutional ED: Denies chills or fever(s) Eyes Eyes: Denies blurry vision or change in vision ENT ENT ED: Denies rhinorrhea or sore throat Cardiovascular Cardiovascular: Denies chest pain or palpitations Respiratory/Chest Respiratory/Chest: Denies cough or dyspnea Gastrointestinal Gastrointestinal: Denies nausea or vomiting Genitourinary Genitourinary ED: Denies dysuria or hematuria Musculoskeletal Musculoskeletal: Reports neck pain; Denies back pain Integumentary Denies abscess or rash Neurologic Neurologic: Denies headache(s) or weakness Allergic/Immunologic Allergic/Immunologic ED: Denies mouth swelling or urticaria EXAM Physical Exam Const Vital Signs: 11/22/21 17:59 11/22/21 18:27 11/22/21 20:24 Temperature 98.2 F Temperature Source Temporal Pulse Rate 102 H 78 Respiratory Rate 18 18 Respiratory Effort Normal Non-Labored Blood Pressure 163/99 H 158/99 H Blood Pressure Mean 120 118 Pulse Ox 97 98 Oxygen Delivery Method Room Air Room Air Room Air Positive well nourished, well developed and obese General Appearance ED: well developed and NAD Nutritional Appearance: obese HEENT HEENT Narrative: There is mild tenderness over the left temporal area. There is a superficial abrasion over this area. There is no active bleeding. There is some mild edema and ecchymosis. There is no bony crepitance or step-off noted. There is edema and ecchymosis of the left upper eyelid. There is no bony crepitance or step-off. Pupils are equal, round, and reactive to light bilaterally. Extraocular muscles are intact. Eyes PERRL and EOMs intact bilaterally Neck full ROM Chest Wall inspection of chest normal and palpation of chest normal GI non-tender Palpation: soft Extremity Extremity Narrative: There is tenderness over the right hip and thigh. There is also tenderness over the left knee. There is no obvious deformity. Range of motion was limited in all motions of the right hip and left knee secondary to pain. Strength is 5/5 bilaterally in the upper and lower extremities. There are no sensory deficits noted. Neuro oriented x3, CN's II-XII intact bilaterally, moves all extremities and no focal motor deficits Pitman Coma Scale: document GCS findings Spontaneous Obeys Commands Oriented 15 Sensorium / Orientation: alert Motor Exam: strength 5/5 throughout Psych mental status grossly normal [facility] Narrative Medical decision making narrative: CT brain was obtained. There is no acute intracranial abnormality. There is moderate atrophy. There are small vessel ischemic changes noted. This was interpreted by the radiologist and reviewed by myself. X-rays of the right hip were obtained. There are 4 views. On my interpretation, there are degenerative changes. There is no acute fracture or dislocation noted. Radiologist also interpreted the x-rays and agrees. X-rays of the left knee were obtained. There are 4 views. On my interpretation, there are degenerative changes noted. There is no acute fracture or dislocation. There is no soft tissue swelling. Radiologist also interpreted the x-rays and agrees. Patient was advised of his findings. Due to his frequent falls, I recommended admission to the hospital. Daughter is agreeable with this. Patient does not want to be admitted here to the hospital and then going to a skilled nursing for therapy. After further discussion between the patient and his daughter, he is agreeable to be admitted to the hospital for rehabilitation and is agreeable to go to a extended care facility for further rehabilitation. Case was discussed with the hospitalist. He will admit the patient to the hospital for observation. Patient and daughter understood and were agreeable with the plan. All questions were answered. Radiography Diagnostic Testing: Clinical Impression(s) from Imaging Studies Brain CT 11/22/21 18:24 IMPRESSION: Moderate generalized atrophy. Mild low density bilaterally in the deep white matter. This likely represents small vessel ischemic changes in the deep white matter. Electronically Signed: Elliot Martin MD at 19:43 EDT , Hip/Pelvis X-Ray 11/22/21 18:24 IMPRESSION: 1. Severe degenerative changes right hip. 2. No fractures. Electronically Signed: Elliot Martin MD at 19:50 EDT , Knee X-Ray 11/22/21 18:24 IMPRESSION: Degenerative changes. No fracture. Electronically Signed: Elliot Martin MD at 19:58 EDT , Discharge Plan Dx/Rx/DC Orders Clinical Impression: Debility, Frequent falls, Sciatica, Closed head injury Disposition Disposition: Acute Care Hospital [facility]
--- NOTE | 2021-11-22 18:24 | RAD_ITS ---
EXAM: XR RIGHT HIP WITH PELVIS WHEN PERFORMED, 2 OR 3 VIEWS CLINICAL INDICATION: Injury/Pain TECHNIQUE: Two or three views of the right hip with pelvis when performed. This report was created using [employer] report generation technology. COMPARISON: None. FINDINGS: BONES/JOINTS: Severe joint space narrowing right hip with subchondral sclerosis and mild marginal osteophytes. No displaced fracture. Sacroiliac joint is unremarkable. No widening of the pubic symphysis. SOFT TISSUES: Unremarkable. No soft tissue swelling or gas. RAD/HIP, UNI W/ Pelvis 2-3 Views IMPRESSION: 1. Severe degenerative changes right hip. 2. No fractures. Electronically Signed: Elliot Martin MD at 19:50 EDT ,
--- NOTE | 2021-11-22 18:24 | RAD_ITS ---
EXAM: XR LEFT KNEE COMPLETE, 4 OR MORE VIEWS CLINICAL INDICATION: Injury/Pain TECHNIQUE: Four or more views of the left knee. This report was created using [employer] report generation technology. COMPARISON: None. FINDINGS: BONES/JOINTS: Severe medial tibiofemoral compartment narrowing with mild marginal osteophytes. Moderate to severe patellofemoral degenerative changes. No joint effusion. No acute fracture. No subluxation. Normal alignment. No sclerotic or destructive changes observed. SOFT TISSUES: Unremarkable. No soft tissue swelling or gas. No radiopaque foreign body. VASCULATURE: Extensive vascular calcifications. RAD/Knee 4 or More Views IMPRESSION: Degenerative changes. No fracture. Electronically Signed: Elliot Martin MD at 19:58 EDT ,
--- NOTE | 2021-11-22 18:24 | CT_ITS ---
EXAM: CT HEAD WITHOUT INTRAVENOUS CONTRAST CLINICAL INDICATION: Injury/Pain TECHNIQUE: Multiple axial images were obtained of the head without intravenous contrast. This CT exam was performed using one or more of the following dose reduction techniques: automated exposure control, adjustment of the mA and/or kV according to patient size, and/or use of iterative reconstruction technique. This report was created using [employer] report generation technology. RADIATION DOSE: CTDIvol = 44.99 mGy, DLP = 863.60 mGy-cm. COMPARISON: None. FINDINGS: BRAIN AND EXTRA-AXIAL SPACES: Moderate generalized atrophy. Mild low density bilaterally in the deep white matter. No intra- or extra-axial hemorrhage. No evidence of acute infarct. No intracranial mass or mass effect. There is preservation of the winters/white matter interface. Posterior fossa structures are unremarkable. No hydrocephalus. Basal cisterns are patent. BONES/JOINTS: Unremarkable. No discrete lytic or blastic abnormalities. SINUSES: Unremarkable as visualized. Clear. MASTOID AIR CELLS: Unremarkable. Clear. ORBITS: Visualized globes, extraocular muscles, optic nerves and retrobulbar fat appear unremarkable. CT/Brain/Head without Contrast IMPRESSION: Moderate generalized atrophy. Mild low density bilaterally in the deep white matter. This likely represents small vessel ischemic changes in the deep white matter. Electronically Signed: Elliot Martin MD at 19:43 EDT ,
[2021-11-22] MEDS: HYDROcodone Bitartrate/Apap 5/325 Tablet PO ×2 (20:19→23:15)
[2021-11-22 20:24] VITALS: BP 158/99; PULSE 78; RESP 18; O2SAT 98
--- NOTE | 2021-11-22 21:15 | PCM.HP.STD ---
HPI - General General Date of Admission: 11/22/21 HPI Narrative AARON GOMEZ, is a 71 M with a significant history of type 2 diabetes who presents to the emergency department with a fall. Reportedly patient fell while walking on a garage stairs. He fell backwards twisted and injured his left forehead, left eyelid and left knee. Reportedly on the same day of presentation he had falling 2 times and in the past 2 weeks he has fallen at least 6 times. Also patient complains of chronic right hip pain and right knee pain. Reportedly is chronic right hip pain and right knee pain affect his mobility and recently he was treated for that. He had recently completed prednisone, Valium and Mobile that his PCP Dr. Mcwilliams had put him on. Per family patient had received a tetanus shot within the past year. [facility]LY [facility], [facility] Medical History Arthritis Chronic back pain Decreased hearing Hyperlipemia Hypertension Kidney stones Type 2 diabetes mellitus Home Medications atorvastatin 40 mg PO QHS 11/07/18 [History Last Taken 11/21/21] acetaminophen 500 mg PO Q4H PRN PRN #20 tablet 11/08/18 [Rx Last Taken Unknown] lisinopril 5 mg PO DAILY 04/25/19 [History Last Taken 11/22/21] metformin 500 mg PO BID 02/03/20 [History Last Taken 11/22/21] diazepam [Valium] 2 mg PO BID PRN #10 tab 11/17/21 [Rx Last Taken Unknown] gabapentin 100 mg PO DAILY 11/17/21 [History Last Taken 11/22/21] hydrocodone-acetaminophen 1 tab PO Q6H PRN PRN 11/22/21 [History Last Taken Unknown] prednisone 40 mg PO DAILY 11/22/21 [History Last Taken 11/22/21] Allergy/AdvReac Type Severity Reaction Status Date / Time oxycodone HCl [From Percocet] Allergy Intermediate Other Verified 11/22/21 18:01 Family History Father Mental disorder Heart disease Mother Heart disease High cholesterol Surgical History History of cervical spinal surgery History of kidney stones Social History Smoking Status: Never smoker alcohol intake: never substance use type: does not use what type of physical activity do you participate in: walking frequency: daily ROS ROS Narrative Pertinent positives and pertinent negatives as noted in HPI. All other systems were reviewed and are negative. Vital Signs Vital Signs Vital Signs: 11/22/21 17:59 11/22/21 18:27 11/22/21 20:24 Temperature 98.2 F Temperature Source Temporal Pulse Rate 102 H 78 Respiratory Rate 18 18 Respiratory Effort Normal Non-Labored Blood Pressure 163/99 H 158/99 H Blood Pressure Mean 120 118 Pulse Ox 97 98 Oxygen Delivery Method Room Air Room Air Room Air Weight Weight: 102.058 kg Body Mass Index (BMI) 33.2 Physical Exam Narrative Physical exam: General: Well-nourished, well-developed. Head: Normocephalic, abrasions to left frontal area. Ecchymosis to left upper eyelid. Eyes: Vision is grossly intact. EOMI ENT, no trauma, moist mucous membranes, no rhinorrhea Neck: Nontender, full range of motion, no spinal tenderness CVS: Regular rate and rhythm. S1-S2 present. No murmur, gallop or rub. Respiratory : clear to auscultation bilaterally, chest wall nontender, no wheezing Abdomen: Soft, nontender, nondistended, normal bowel sounds, no masses : Deferred Back: Nontender, no CVA tenderness, no midline spinal tenderness. Extremities: Nontender full range of motion, no trauma. Bilateral lower leg edema Skin: Abrasion to left knee; left clayton. Ulcer to right clayton. Normal color. Neuro: Alert, oriented, cranial nerves II through XII grossly intact. Psychiatry: Normal mood. Normal affect. Not depressed. Not anxious. Results Radiology Impression Brain CT 11/22/21 18:24 IMPRESSION: Moderate generalized atrophy. Mild low density bilaterally in the deep white matter. This likely represents small vessel ischemic changes in the deep white matter. Electronically Signed: Elliot Martin MD at 19:43 EDT , Hip/Pelvis X-Ray 11/22/21 18:24 IMPRESSION: 1. Severe degenerative changes right hip. 2. No fractures. Electronically Signed: Elliot Martin MD at 19:50 EDT , Knee X-Ray 11/22/21 18:24 IMPRESSION: Degenerative changes. No fracture. Electronically Signed: Elliot Martin MD at 19:58 EDT , Assessment & Plan Assessment/Plan (1) Physical debility: (2) Frequent falls: PLAN: Physical debility and frequent falls/abrasions Head CT was visualized and independently interpreted. No acute brain pathology found. I agree with radiologist interpretation X-ray of left knee with no acute pathology. Hip and pelvis x-ray with no acute pathology Review of record showed that his vitamin D level on 10/22/2021 was 13.4 and a TSH on the same day was 1.22. PT and OT to work with patient. Case management consult for disposition Vitamin D deficiency Vitamin D level as above. Vitamin D supplementation ordered. Right lower extremity sciatica Patient recently completed a prednisone, Valium and Mobile. and PCP ordered. Of note patient has allergy to oxycodone. Mobile ordered. Cymbalta ordered. Nurse to provide massage and kpad as needed. PT and OT consult. 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 Change daily Diabetes mellitus Blood glucose is well controlled. Metformin continued. Calorie controlled diet ordered. Hypertension Blood pressure is not within goal Lisinopril continued. As needed hydralazine ordered. Trend blood pressure and adjust blood pressure medications. DVT prophylaxis: SCDs. No chemical prophylaxis secondary to recent fall and ecchymosis of left eyelid; and close head injury Charges/Coding Visit Charges OBSV E&M: 12154 Initial observation care L3
[2021-11-22 21:47] VITALS: BP 145/90; PULSE 63; RESP 18; TEMP 36.8; O2SAT 96
[2021-11-22 22:17] VITALS: BMI 33.0
[2021-11-22 22:18] VITALS: BP 157/101; PULSE 98; RESP 18; TEMP 37; O2SAT 93
[2021-11-22] MEDS: Atorvastatin Calcium 40 MG Tablet PO (22:46)
[2021-11-22] MEDS: metFORMIN HCl 500 MG Tablet PO (22:46)
[2021-11-22 22:51] LABS: Bedside Glucose 165 mg/dL (74-106)
[2021-11-22] MEDS: Mupirocin Ointment 22gm Tube 1 APPLIC TOPICAL (23:10)
--- NOTE | 2021-11-22 23:53 | NURSING ---
Since admission to the floor patient has sat up in the chair. Patient sitting with legs in dependent position. This RN has attempted multiple times to elevate patients legs and patient unable to tolerate. Patient c/o cramping sciatic leg pain when legs are elevated. PRN norco given for pain. Patient attempted to be educated about the importance of leaving legs elevated when sitting especially since he has leg ulcers. Patient stated he understood yet is unable to tolerate. Will ask for order for BHUMIKA wraps.
--- NOTE | 2021-11-23 01:35 | NURSING ---
Donn wraps applied bilaterally during this time per order.
[2021-11-23] MEDS: Acetaminophen 325 MG Tablet 650 MG PO ×2 (02:56→10:07)
[2021-11-23 03:00] VITALS: BP 159/89; PULSE 69; RESP 18; TEMP 37.1; O2SAT 95
--- NOTE | 2021-11-23 04:53 | NURSING ---
Patient c/o pain in right leg/ knee 8, patient bouncing and rubbing leg. This RN convinced patient to attempt to lay in the bed, x2 assist. Patient unable to tolerate the bed with multiple position attempts provided. Patient repeatedly asking staff to assist him back into the chair. Patient assisted into the chair. Staff attempted to elevate legs on a low platform to lift legs up, patient unable to tolerate. Next PRN norco due to 5:15, heating pad provided per orders.
[2021-11-23] MEDS: HYDROcodone Bitartrate/Apap 5/325 Tablet PO ×2 (05:18→11:24)
[2021-11-23 05:56] LABS: Absolute Lymphocyte Count 2.42 X10^3/uL (0.83-4.51); Absolute Neutrophil Count 8.4 X10^3/uL (2.0-7.7); Basophil# 0.04 X10^3/uL; Basophil% 0.3 % (0-1); Eosinophil# 0.09 X10^3/uL; Eosinophils% 0.8 % (0-5); Hematocrit 42.2 % (40-54); Hemoglobin 13.6 g/dL (13.0-16.5); Lymphocyte # 2.42 X10^3/ul (0.83-4.51); Lymphocyte % 20.6 % (19-41); Mean Corp Hgb Conc 32.2 g/dL (32-36); Mean Corpuscular Hgb 30.9 pg (27.0-32.0); Mean Corpuscular Volume 95.9 fL (80-94); Mean Platelet Vol. 10.3 fl (6.2-12.0); Monocyte# 0.67 X10^3/uL; Monocyte% 5.7 % (0-10); NRBC Flagged by Analyzer 0 % (0-5); Neutrophil # 8.38 X10^3/uL (2.7-7.7); Neutrophil % 71.5 % (47-70); Platelet Count 301 K/mm3 (150-450); RBC Distribution Width CV 13.2 % (11.6-14.6); RBC Distribution Width SD 46.4 fl (35.1-43.9); White Blood Count 11.7 K/mm3 (4.4-11.0)
[2021-11-23 06:31] LABS: Anion Gap 8 (5-15); BUN 30 mg/dL (7-18); BUN/Creat Ratio 30.4 RATIO (10-20); Calcium,Total 8.5 mg/dL (8.5-10.1); Chloride 105 mmol/L (98-107); Creatinine, Serum 0.99 mg/dL (0.70-1.30); EST Glomerular Filtration Rate 79 mL/min (>60); Est Glom Filt Rate - Afr Amer 96 mL/min (>60); Estimated Creatinine Clearance 66.45 ml/min; Glucose 153 mg/dL (74-106); Potassium 4.2 mmol/L (3.5-5.1); Sodium Level 140 mmol/L (136-145); Thyroid Stim Hormone (TSH) 1.26 uIU/mL (0.358-3.74)
[2021-11-23] MEDS: metFORMIN HCl 500 MG Tablet PO (07:46)
[2021-11-23 08:04] LABS: Vitamin D,25 Hydroxy 20.7 ng/mL
[2021-11-23 09:00] VITALS: BP 155/100; PULSE 80; RESP 18; TEMP 36.9; O2SAT 95
[2021-11-23 09:33] VITALS: O2SAT 95
--- NOTE | 2021-11-23 10:00 | CASEMGMT ---
RN CM Face to Face with patient for initial transition planning/care coordination assessment. RN CM introduced self and role at [facility]. Patient sitting in chair, alert and oriented. Patient willing to participate in assessment and is able to answer all questions appropriately. Care providers, pharmacy, and demographics verified. Patient wishes to discharge home with possible HHC. Patient willing to go to SNF if needed. Patient states he has no further needs or concerns at this time. CM to follow for discharge planning needs that may arise. PCP: Oj Specialists: Vero urologist Preferred Pharmacy: [facility] Prescription Benefit: yes Living Will/HPOA: yes, daughter Lashay Elizabeth LNOK: daughter Living Arrangements: Patient states he lives alone in a single story home with 4 steps and railing to enter the home. Patient states he was independent at home. Transportation: self, daughter DME/HHC: Patient has shower chair, raised toilet, grab bars, and walker at home. No previous HHC or SNF. Disposition Plan: HHC vs SNF pending progress with therapy. Ivone BERNAL, RN, CM
[2021-11-23] MEDS: DULoxetine Hcl 30 MG Capsule PO (10:07)
[2021-11-23] MEDS: Lisinopril 5 MG Tablet PO (10:07)
[2021-11-23] MEDS: Cholecalciferol (VIT D3) 25 MCG TABLET (1,000 UNITS) PO (10:10)
[2021-11-23] MEDS: Mupirocin Ointment 22gm Tube 1 APPLIC TOPICAL (10:10)
--- NOTE | 2021-11-23 12:15 | CASEMGMT ---
Social Work Note PT/OT updated this worker that recommendation is SNF. SW in to speak with pt. SW introduced self and role at [facility]. SW spoke with pt regarding recommendation of SNF. SW informed pt that it was mod assist to get pt up. Pt states that he doesn't sleep in a bed at home. SW informed pt that he will just be going to SNF for short term therapy. Patient was provided a list of SNF providers including quality and resource use data and consistent with the patient?s preferred geographic region, medical needs, and insurance network. Pt states that his has been to [facility] and a SNF in [place] before but pt has not been to a SNF. Pt states to try either [facility] or [facility]. SW informed pt that he needs to pick one so this worker can make a referral. Pt states to try [facility]. RYANNE placed a call to Tori with TCU and provided referral. Tori to review referral. Plan: TCU pending acceptance Ivone Garcia STEM ROLLER OPERATOR, MAMMOGRAPHY TECH
--- NOTE | 2021-11-23 13:10 | CASEMGMT ---
Social Work Note SW received message from Tori with TCU stating TCU can accept pt today and pt will need a COVID test. SW updated physician. SW in to speak with pt. SW updated pt that he has been accepted to TCU and he will discharge there today. SW asked pt if this worker could call his daughter to update and pt states she is at work and cannot take calls. SW informed pt that this worker could call and leave a message. Pt states no, he will update his daughter later. Plan: TCU today Ivone Garcia MARINE INSURANCE CLAIM EXAMINER, CLAY WORKER
--- NOTE | 2021-11-23 13:17 | DS.PCM_ITS ---
Providers Date of Admission: 11/22/21 Primary Care Physician: Dr. Mitch Mcwilliams MD Reason For Visit: DEBILITY, MULTIPLE FALLS Diagnosis Discharge Diagnosis (1) Physical debility: Status: Acute Code(s): R53.81 - Other malaise (2) Frequent falls: Status: Acute Code(s): R29.6 - Repeated falls Medications at Discharge Home Medications atorvastatin 40 mg PO QHS 11/07/18 acetaminophen 500 mg PO Q4H PRN PRN #20 tablet 11/08/18 lisinopril 5 mg PO DAILY 04/25/19 metformin 500 mg PO BID 02/03/20 diazepam [Valium] 2 mg PO BID PRN #10 tab 11/17/21 gabapentin 100 mg PO DAILY 11/17/21 prednisone 40 mg PO DAILY 11/22/21 hydrocodone-acetaminophen 1 tab PO Q6H PRN PRN 3 Days #12 tab 11/23/21 Hospital Course Operations None Procedures None Summary of Care Provided Minutes Spent on Discharge: 45 Hospital Course: Patient is a 71 y/o male with a PMH as outlined who was admitted via the ED on 11/22/2021 with a complaint of a mechanical fall. HE was walking and fell down some garage stairs. HE hit his lef forehead, left eyelid and left knee. He had had several numerous falls prior to this. He also complained of chronic right hip pain which he thought was due to sciatica. CT of the brain showed moderate generalised atrophy and showed small vessel ischemic changes in the deep white matter. Hip xray showed seere degenerative changes of the right hip and no fractures. He was admitted to be managed for debility due to mechanical fall. PT/OT was consulted and worked with him. He was deemed as needing SNF. HE was discharged to SNF on 11/23/2021. He is to follow up with his PCP in 1-2 weeks. Patient seen and examined prior to discharge. He had no active complaints and had an uneventful night. Review of systems was otherwise negative. Labs and vitals reviewed. Home meds reviewed adn reconciled. Physical Exam Const alert, oriented x3 and no apparent distress General Appearance: cooperative and comfortable Orientation / Consciousness: awake Exam Limitations: no limitations HEENT normocephalic, hearing grossly normal bilaterally and moist oral mucous membranes HEENT Narrative: left eye periorbital hematoma due to mechanical fall. Eyes PERRL and EOMs intact bilaterally Neck no lymphadenopathy and supple Resp normal respiratory effort and clear to auscultation bilaterally Cardio regular rate, regular rhythm, S1 normal heart sound, S2 normal heart sound and no murmurs GI normal to inspection, nondistended, normoactive bowel sounds, soft to palpation, non-tender and non-distended Extremity normal to inspection, full ROM and no clubbing, cyanosis or edema Skin no rashes or lesions noted Neuro oriented x3, CN's II-XII intact bilaterally and moves all extremities Sensorium / Orientation: awake and alert Psych affect normal Weight / BMI Weight Weight: 223 lb 8.78 oz Body Mass Index (BMI) 33.0 ABG / Lab / Microbiology Data Result Diagrams: 11/23/21 05:28 11/23/21 05:28 Laboratory: Laboratory Results - last 24 hr 11/22/21 22:45: POC Glucose 165 H 11/23/21 05:28: Vitamin D 25-Hydroxy 20.7 11/23/21 05:28: WBC 11.7 H, RBC 4.40 L, Hgb 13.6, Hct 42.2, MCV 95.9 H, MCH 30.9, MCHC 32.2, RDW Std Deviation 46.4 H, RDW Coeff of Javid 13.2, Plt Count 301, MPV 10.3, Immature Gran % (Auto) 1.100 H, Neut % (Auto) 71.5 H, Lymph % (Auto) 20.6, [place] % (Auto) 5.7, Eos % (Auto) 0.8, Baso % (Auto) 0.3, Absolute Neuts (auto) 8.4 H, Absolute Lymphs (auto) 2.42, Nucleated RBC % 0 11/23/21 05:28: Sodium 140, Potassium 4.2, Chloride 105, Carbon Dioxide 27.0, Anion Gap 8, BUN 30 H, Creatinine 0.99, Estim Creat Clear Calc 66.45, Est GFR (MDRD) Af Amer 96, Est GFR (MDRD) Non-Af 79, BUN/Creatinine Ratio 30.4 H, Glucos e 153 H, Calcium 8.5, TSH 1.26 Radiography Diagnostic Testing: Radiology Impression Brain CT 11/22/21 18:24 IMPRESSION: Moderate generalized atrophy. Mild low density bilaterally in the deep white matter. This likely represents small vessel ischemic changes in the deep white matter. Electronically Signed: Elliot Martin MD at 19:43 EDT , Hip/Pelvis X-Ray 11/22/21 18:24 IMPRESSION: 1. Severe degenerative changes right hip. 2. No fractures. Electronically Signed: Elliot Martin MD at 19:50 EDT , Knee X-Ray 11/22/21 18:24 IMPRESSION: Degenerative changes. No fracture. Electronically Signed: Elliot Martin MD at 19:58 EDT , D/C Instructions Discharge Diet: Low fat / Low cholesterol Discharge Activity: Return to Normal Activity Weight Bearing Status: Weight bearing as tolerated Call your doctor if you observe: Fever of 101 or Higher, Shortness of breath, Swelling in the ankles and Uncontrolled pain Meaningful Use Info Meaningful Use Diagnoses (Choose all that apply): None applicable Discharge Plan Admission Admit Date/Time: 11/22/21 21:03 Primary Reason for Your Visit: debility due to mechanical fall Attending Provider: Melinda Pretty Primary Care Provider: Mitch Mcwilliams Chi Instructions Patient Instructions: ED Mechanical Fall Discharge Orders/Prescriptions Prescriptions: Continued atorvastatin 40 MG tablet 40 mg PO QHS RF: 0 acetaminophen 500 MG tablet 500 mg PO Q4H PRN PRN (Reason: Pain) Qty: 20 RF: 0 lisinopril 5 MG tablet 5 mg PO DAILY RF: 0 metformin 500 MG tablet 500 mg PO BID RF: 0 gabapentin 100 mg capsule 100 mg PO DAILY RF: 0 diazepam [Valium] 2 mg tablet 2 mg PO BID PRN (Reason: muscle spasm) Qty: 10 RF: 0 prednisone 20 mg tablet 40 mg PO DAILY RF: 0 hydrocodone-acetaminophen 5-325 mg tablet 1 tab PO Q6H PRN PRN (Reason: Pain) 3 Days Qty: 12 RF: 0 Referrals / Follow Up: Mitch Mcwilliams Chi, MD [Primary Care Provider] - Within 2 Weeks Disposition Disposition (needs filled in before D/C Order can be placed): Custodial Facility Charges/Coding Visit Charges Inpatient E&M: 20960 Disch Hosp
--- NOTE | 2021-11-23 13:33 | PCM.TXEXTCAR ---
Diet 11/22/21 22:16 Diet: Consistent Carb - Calorie Controlled Food consistency:: Regular Liquid Consistency:: Regular/Thin How many daily calories?: 1800 calorie Routine Orders/Code Status Enema Type: Fleetz Enema Frequency: Daily PRN Suppository Type: Dulcolax 10mg Suppository Frequency: Daily PRN O2 Frequency: PRN Keep PO Greater than or Equal to (%): 90 Wound(s) left forhead: Wound Type: Abrasion left clayton: Wound Type: Stasis Ulcer right clayton: Wound Type: Stasis Ulcer Therapies Weight Bearing: Weight bearing as tolerated Physical Therapy: Eval and Treat Occupational Therapy: Eval and Treat Problem/Diagnosis (1) Physical debility: Status: Acute (2) Frequent falls: Status: Acute Allergies/Procedures Done in Hospital Allergies oxycodone HCl [From Percocet] Allergy (Intermediate, Verified 11/22/21 18:01) Other shaky, hot, sweaty, nauseated Procedures: None Type of Care/Length of Stay Estimated LOS: Convalescent Care Less Than 30 days Type of Care Needed: Skilled Rehab Potential: Fair Prognosis: Fair Additional Orders/Day of Discharge Day of Discharge: 11/23/21 Discharge Plan Admission Admit Date/Time: 11/22/21 21:03 Primary Reason for Your Visit: debility due to mechanical fall Attending Provider: Melinda Pretty Primary Care Provider: Mitch Mcwilliams Chi Instructions Patient Instructions: ED Mechanical Fall Discharge Orders/Prescriptions Prescriptions: Continued atorvastatin 40 MG tablet 40 mg PO QHS RF: 0 acetaminophen 500 MG tablet 500 mg PO Q4H PRN PRN (Reason: Pain) Qty: 20 RF: 0 lisinopril 5 MG tablet 5 mg PO DAILY RF: 0 metformin 500 MG tablet 500 mg PO BID RF: 0 gabapentin 100 mg capsule 100 mg PO DAILY RF: 0 diazepam [Valium] 2 mg tablet 2 mg PO BID PRN (Reason: muscle spasm) Qty: 10 RF: 0 prednisone 20 mg tablet 40 mg PO DAILY RF: 0 hydrocodone-acetaminophen 5-325 mg tablet 1 tab PO Q6H PRN PRN (Reason: Pain) 3 Days Qty: 12 RF: 0 Referrals / Follow Up: Mitch Mcwilliams Chi, MD [Primary Care Provider] - Within 2 Weeks Disposition Disposition (needs filled in before D/C Order can be placed): Long-Term Facility
[2021-11-23 13:48] VITALS: BP 137/84; PULSE 60; RESP 18; TEMP 37.1; O2SAT 95
[2021-11-23 13:49] VITALS: BP 137/84; PULSE 60; RESP 18; TEMP 37.1; O2SAT 95
--- NOTE | 2021-11-23 14:35 | PHA.DC.MR ---
Pharmacy Service has performed discharge medication reconciliation for this patient. The patient's discharge medication list was reviewed for discrepancies and discrepancies were resolved. Home Medications atorvastatin 40 mg PO QHS 11/07/18 acetaminophen 500 mg PO Q4H PRN PRN #20 tablet 11/08/18 lisinopril 5 mg PO DAILY 04/25/19 metformin 500 mg PO BID 02/03/20 diazepam [Valium] 2 mg PO BID PRN #10 tab 11/17/21 gabapentin 100 mg PO DAILY 11/17/21 prednisone 40 mg PO DAILY 11/22/21 hydrocodone-acetaminophen 1 tab PO Q6H PRN PRN 3 Days #12 tab 11/23/21
--- NOTE | 2021-11-23 15:15 | CHAPLAIN ---
Type of Pastoral Visit _x__ Initial Visit ___ Follow-up Visit ___ On-call Visit ___ General Patient Visit ___ Spiritual Assessment ___ Family Conference ___ Bereavement ___ Rapid Response ___ Code Blue ___ Other (describe below) Pastoral Care Referral From _x__ Patient ___ Family ___ Nurse ___ Physician ___ Water Rights Specialist ___ Traffic Rate Computer ___ Other (describe below) Sacrament/Intervention _x__ Active listening ___ Anointing ___ Quaker ___ Bereavement ___ Communion ___ Trudi exploration ___ ___ Life review ___ Prayer ___ Reconciliation ___ Sacrament of Sick ___ Supportive presence ___ Wedding ___ Other (describe below) Pastoral Comments patient admits to discomfort but states that he received his meds and has some relief; pt says he is and used to being alone; pt does state that he has some people/neighbors/extended family that keep an eye on him and his needs; pt denies any needs at this time
== END 2021-11-23 18:03 | disposition skilled nursing facility (03) ==
LOC: ED 21:11 → MS3 21:29
PROVIDERS: Admitting Provider Hospitalist; Emergency Provider Emergency Medicine; PCP Family Medicine Geriatric Medicine; Visit Provider Student in an Organized Health Care Education/Training Program
DX: R53.81 Other malaise (principal); E11.622 Type 2 diabetes mellitus with other skin ulcer; L97.219 Non-pressure chronic ulcer of right calf with unspecified severity; S09.90XA Unspecified injury of head, initial encounter; E78.5 Hyperlipidemia, unspecified; M16.11 Unilateral primary osteoarthritis, right hip; M54.2 Cervicalgia; I10 Essential (primary) hypertension; G89.29 Other chronic pain; W10.9XXA Fall (on) (from) unspecified stairs and steps, initial encounter; M54.31 Sciatica, right side; Z79.84 Long term (current) use of oral hypoglycemic drugs; Z79.899 Other long term (current) drug therapy; Z79.52 Long term (current) use of systemic steroids; Y93.01 Activity, walking, marching and hiking; Y99.9 Unspecified external cause status; Y92.59 Other trade areas as the place of occurrence of the external cause; R29.6 Repeated falls
CPT/HCPCS: 36415; 70450; 73502; 73564; 80048; 82306; 82962; 84443; 85025; 87426; 97162; 97166; 99218; 99283; G0378

== ENCOUNTER 2021-11-23 18:00 | Inpatient (IN) | payer MEDICARE, OTHER, SELFPAY ==
[2021-11-23 18:25] VITALS: BP 139/79; PULSE 74; RESP 18; TEMP 36.3; O2SAT 93; BMI 33.4
--- NOTE | 2021-11-23 20:39 | PCM.HP.STD ---
HPI - General General Date of Admission: 11/23/21 HPI Narrative 11/22/2021 AARON GOMEZ, is a 71 Male who presents to [facility] Department with fall. Walking up steps, lost balance, fell. Fell down 4 steps, hit left side of head. Left knee pain, right hip pain, right thigh pain. Difficulty walking after fall, pain worse with movement. Pain cramping. CT brain negative, X-ray right hip shows arthritis. X-ray left knee shows arthritis. 11/22/2021 Admit to Hospital. PT/OT for debility. Jackson, Cymbalta added right sciatica. Hydralazine as needed for elevated blood pressure. 11/23/2021 Admit to TCU with debility, here for rehabilitation, strengthening, prior to discharge home alone. [facility] Medical History (Updated 11/23/21 @ 20:[address] Mitch Mcwilliams MD) Arthritis Chronic back pain Decreased hearing Hyperlipemia Hypertension Kidney stones Type 2 diabetes mellitus Home Medications atorvastatin 40 mg PO QHS 11/07/18 [History Last Taken 11/21/21] acetaminophen 500 mg PO Q4H PRN PRN #20 tablet 11/08/18 [Rx Last Taken Unknown] lisinopril 5 mg PO DAILY 04/25/19 [History Last Taken 11/22/21] metformin 500 mg PO BID 02/03/20 [History Last Taken 11/22/21] diazepam [Valium] 2 mg PO BID PRN #10 tab 11/17/21 [Rx Last Taken Unknown] gabapentin 100 mg PO DAILY 11/17/21 [History Last Taken 11/22/21] prednisone 40 mg PO DAILY 11/22/21 [History Last Taken 11/22/21] hydrocodone-acetaminophen 1 tab PO Q6H PRN PRN 3 Days #12 tab 11/23/21 [Rx Last Taken Unknown] Allergy/AdvReac Type Severity Reaction Status Date / Time oxycodone HCl [From Percocet] Allergy Intermediate Other Verified 11/22/21 18:01 Family History Father Mental disorder Heart disease Mother Heart disease High cholesterol Surgical History History of cervical spinal surgery History of kidney stones Social History (Updated 11/23/21 @ 20:[address] Mitch Mcwilliams MD) household members: none Smoking Status: Never smoker alcohol intake: never substance use type: does not use what type of physical activity do you participate in: walking frequency: daily ROS Constitutional Constitutional: Denies chills, fever(s) or weight gain ENT HEENT: Denies headache(s), nasal congestion or nasal discharge Cardiovascular Cardiovascular: Denies chest pain or palpitations Respiratory/Chest Respiratory/Chest: Denies cough, excessive phlegm production or shortness of breath with exertion Gastrointestinal Gastrointestinal: Denies abdominal pain, nausea or vomiting Genitourinary Genitourinary: Denies dysuria Musculoskeletal Musculoskeletal: Denies joint pain or joint swelling Integumentary Integumentary: Denies rash or wounds Neurologic Neurologic: Denies focal weakness, numbness or tingling Psychiatric Psychiatric: Denies anxiety, auditory hallucinations, depression, homicidal ideation or suicidal ideation Vital Signs Vital Signs Vital Signs: 11/23/21 18:25 Temperature 97.4 F L Temperature Source Temporal Pulse Rate 74 Respiratory Rate 18 Blood Pressure 139/79 H Blood Pressure Mean 99 Blood Pressure Source Monitor Blood Pressure Position Sitting Blood Pressure Location Right Arm Pulse Ox 93 Oxygen Delivery Method Room Air Weight Weight: 102.654 kg Body Mass Index (BMI) 33.4 Physical Exam Const alert General Appearance: cooperative HEENT normocephalic HEENT Narrative: Bruise left upper eyelid. Eyes PERRL and EOMs intact bilaterally Neck supple, no JVD and no carotid bruits Resp normal respiratory effort, normal air movement and clear to auscultation bilaterally Cardio regular rate and regular rhythm GI normal to inspection, nondistended, normoactive bowel sounds, non-tender and non-distended Extremity normal capillary refill General Extremity: Negative for edema Skin no rashes or lesions noted General Skin Exam: no breakdown Psych affect normal Appearance: appropriate Results Lab / Micro Data Result Diagrams: 11/24/21 05:07 11/24/21 05:07 Assessment & Plan Assessment/Plan (1) Debility: (2) Fall: (3) Closed head injury: (4) Sciatica: (5) Hyperlipidemia: (6) Hypertension: (7) Diabetes mellitus: (8) Diabetic polyneuropathy: (9) Muscle spasm: PLAN: 71 year old male with below past medical history hospitalized for fall, sciatica, admitted to TCU with debility, here for rehabilitation, strengthening, prior to discharge home alone. Debility - PT/OT. Pain - Tylenol 1000mg q6h prn (1-3), Tramadol 50mg q6h prn (4-5), Oxycocone 5mg q4h prn (6-10). Bowel - Miralax 17gm daily, senna/colace 2 tablets bid, Dulcolax 10mg pr daily prn. Adult immunization - Administer pneumonia vaccine, flu vaccine, covid19 vaccine. DVT prophylaxis - HAS-BLED 1 intermediate risk of bleeding, Gary 5 high risk of VTE, overall risk moderate, Rx Xarelto 10mg daily x 14 days. Hyperlipidemia - Atorvastatin 40mg qhs. Sciatica - Gabapentin 100mg tid, Medrol dosepak. Nutrition - Glucerna Shake 120ml po tidcm. Hypertension - Lisinopril 5mg daily. Diabetes Mellitus II - Metformin 500mg bidcm. Muscle spasm - Baclofen 10mg tid prn.
[2021-11-23 21:25] VITALS: PULSE 74; O2SAT 93
[2021-11-23] MEDS: traMADol 50 MG Tablet PO (22:01)
[2021-11-23] MEDS: Atorvastatin Calcium 40 MG Tablet PO (22:01)
[2021-11-23] MEDS: Acetaminophen 500 MG Tablet 1000 MG PO (22:01)
[2021-11-23] MEDS: Senna/Docusate Sodium 1 Tablet 2 TABLET PO (22:02)
[2021-11-23] MEDS: MethylPREDNISolone DosePak 4 MG BOX PO (22:03)
[2021-11-24 05:00] VITALS: BP 136/69; PULSE 70; RESP 18; TEMP 36.6; O2SAT 94
[2021-11-24] MEDS: Polyethylene Glycol 3350 17 GM PACKET PO (05:23)
[2021-11-24] MEDS: Senna/Docusate Sodium 1 Tablet 2 TABLET PO ×2 (05:24→17:19)
[2021-11-24] MEDS: traMADol 50 MG Tablet PO (05:25)
[2021-11-24] MEDS: Lisinopril 5 MG Tablet PO (05:25)
[2021-11-24] MEDS: Acetaminophen 500 MG Tablet 1000 MG PO (05:25)
[2021-11-24 05:42] LABS: Absolute Lymphocyte Count 0.79 X10^3/uL (0.83-4.51); Basophil# 0.01 X10^3/uL; Basophil% 0.1 % (0-1); Eosinophil# 0.01 X10^3/uL; Eosinophils% 0.1 % (0-5); Hematocrit 39.9 % (40-54); Hemoglobin 12.7 g/dL (13.0-16.5); Lymphocyte # 0.79 X10^3/ul (0.83-4.51); Lymphocyte % 6.5 % (19-41); Mean Corp Hgb Conc 31.8 g/dL (32-36); Mean Corpuscular Hgb 30.2 pg (27.0-32.0); Mean Corpuscular Volume 94.8 fL (80-94); Mean Platelet Vol. 9.5 fl (6.2-12.0); Monocyte# 0.14 X10^3/uL; Monocyte% 1.2 % (0-10); NRBC Flagged by Analyzer 0 % (0-5); Neutrophil # 11.01 X10^3/uL (2.7-7.7); Neutrophil % 91.1 % (47-70); Platelet Count 326 K/mm3 (150-450); RBC Distribution Width CV 13.1 % (11.6-14.6); RBC Distribution Width SD 45.8 fl (35.1-43.9); Red Blood Count 4.21 M/mm3 (4.6-6.2); White Blood Count 12.1 K/mm3 (4.4-11.0)
[2021-11-24 06:26] LABS: Bedside Glucose 217 mg/dL (74-106)
[2021-11-24 06:27] LABS: Anion Gap 5 (5-15); BUN 36 mg/dL (7-18); BUN/Creat Ratio 33.6 RATIO (10-20); Calcium,Total 8.6 mg/dL (8.5-10.1); Chloride 102 mmol/L (98-107); Creatinine, Serum 1.07 mg/dL (0.70-1.30); EST Glomerular Filtration Rate 72 mL/min (>60); Est Glom Filt Rate - Afr Amer 87 mL/min (>60); Estimated Creatinine Clearance 61.49 ml/min; Glucose 210 mg/dL (74-106); Potassium 4.9 mmol/L (3.5-5.1); Sodium Level 135 mmol/L (136-145)
[2021-11-24] MEDS: Glucerna Shake 120 ML LIQUID PO ×3 (08:07→17:17)
[2021-11-24] MEDS: metFORMIN HCl 500 MG Tablet PO ×2 (08:07→17:18)
[2021-11-24] MEDS: Gabapentin 100 MG Capsule PO ×3 (08:08→17:19)
[2021-11-24] MEDS: MethylPREDNISolone DosePak 4 MG BOX PO ×4 (08:10→20:24)
--- NOTE | 2021-11-24 09:57 | PCM.PN.RX ---
Progress Note - Pharmacy Subjective: TCU Admission Objective: Allergies oxycodone HCl [From Percocet] Allergy (Intermediate, Verified 11/22/21 18:01) Other shaky, hot, sweaty, nauseated Current Medications Generic Name Dose Route Start Last Admin Trade Name Freq PRN Reason Stop Dose Admin Acetaminophen 1,000 mg 11/23/21 20:52 11/24/21 05:25 Acetaminophen 500 Mg Tablet PO 1,000 mg Q6H PRN PRN Administration Pain Score 1-3 Atorvastatin Calcium 40 mg 11/23/21 22:00 11/23/21 22:01 Atorvastatin Calcium 40 Mg Tablet PO 40 mg QHS THAD Administration Baclofen 10 mg 11/23/21 20:52 Baclofen 10 Mg Tablet PO TID PRN PRN MUSCLE SPASM Bisacodyl 10 mg 11/23/21 18:36 Bisacodyl 10 Mg Suppository RC DAILY PRN CONSTIPATION Gabapentin 100 mg 11/24/21 07:45 11/24/21 08:08 Gabapentin 100 Mg Capsule PO 100 mg TIDCM THAD Administration Lisinopril 5 mg 11/24/21 06:00 11/24/21 05:25 Lisinopril 5 Mg Tablet PO 5 mg DAILY THAD Administration Metformin HCl 500 mg 11/24/21 08:00 11/24/21 08:07 Metformin Hcl 500 Mg Tablet PO 500 mg BIDCM THAD Administration Methylprednisolone 4 mg 11/23/21 22:00 11/24/21 08:10 Methylprednisolone Dosepak 4 Mg Box PO 11/28/21 08:59 4 mg 0800,1200,1700 THAD Administration Taper Nutritional Formula (Lactose Free) 120 ml 11/24/21 07:45 11/24/21 08:07 Glucerna Shake 120 Ml Liquid PO 120 ml TIDCM THAD Administration Polyethylene Glycol 17 gm 11/24/21 06:00 11/24/21 05:23 Polyethylene Glycol 3350 17 Gm Packet PO 17 gm DAILY THAD Administration Rivaroxaban 10 mg 11/24/21 17:00 Rivaroxaban 10 Mg Tablet PO 12/08/21 17:01 DINNER THAD Senna/Docusate Sodium 2 tablet 11/23/21 21:00 11/24/21 05:24 Senna/Docusate Sodium 1 Tablet PO 2 tablet BID THAD Administration Sodium Chloride 10 - 40 ml 11/23/21 18:46 0.9% Saline Lock 10 Ml Syringe IV UD PRN SALINE FLUSH Tramadol HCl 50 mg 11/24/21 07:52 Tramadol 50 Mg Tablet PO Q6H PRN PRN Pain Score 4-10 Tuberculin PPD 0.1 ml 11/24/21 10:00 Tuberculin,Purif.Prot.Deriv. 50 Tu/Ml Vial ID 11/24/21 10:01 X1 ONE Tuberculin PPD 0.1 ml 12/01/21 10:00 Tuberculin,Purif.Prot.Deriv. 50 Tu/Ml Vial ID 12/01/21 10:01 X1 ONE Problem List (Last Reviewed 11/23/21 @ 20:[address] Mitch Mcwilliams MD) Muscle spasm (Acute) Diabetic polyneuropathy (Acute) Diabetes mellitus (Acute) Hypertension (Chronic) Hyperlipidemia (Acute) Closed head injury (Acute) Fall (Acute) Debility (Acute) Sciatica (Acute) Vital Signs Temp Pulse Resp BP Pulse Ox 97.8 F 70 18 136/69 H 94 11/24/21 05:00 11/24/21 05:00 11/24/21 05:00 11/24/21 05:00 11/24/21 05:00 Oxygen Delivery Method Room Air Weight: 102.654 kg Body Mass Index (BMI) 33.4 Sodium 135 mmol/L (136-145) L 11/24/21 05:07 Potassium 4.9 mmol/L (3.5-5.1) 11/24/21 05:07 Chloride 102 mmol/L (98-107) 11/24/21 05:07 Carbon Dioxide 28.0 mmol/L (21.0-32.0) 11/24/21 05:07 Anion Gap 5 (5-15) 11/24/21 05:07 BUN 36 mg/dL (7-18) H 11/24/21 05:07 Creatinine 1.07 mg/dL (0.70-1.30) 11/24/21 05:07 Est GFR (MDRD) Af Amer 87 mL/min (>60) 11/24/21 05:07 Est GFR (MDRD) Non-Af 72 mL/min (>60) 11/24/21 05:07 BUN/Creatinine Ratio 33.6 RATIO (10-20) H 11/24/21 05:07 Glucose 210 mg/dL (74-106) H 11/24/21 05:07 Assessment/Plan: 1. Pain: acetaminophen 1000mg PO Q6H PRN pain 1-3 and tramadol 50mg PO Q6H PRN pain 4-10. Please continue to monitor for increased pain and PRN usage. 2. DVT prophylaxis: rivaroxaban 10mg PO DINNER thru 12/08/21. Please continue to monitor for S/S of bleeding/DVT and hemoglobin (last 12.7g/dL). *3. Hyperlipidemia: atorvastatin 40mg PO QHS. Please consider ordering a lipid panel (last 10/2018) if clinically appropriate. Thanks. Please continue to monitor for muscle pain. 4. Hypertension: lisinopril 5mg PO daily. Please continue to monitor BP (last 136/69), potassium (last 4.9mmol/L), cough and renal function. *5. Diabetes Mellitus II: metformin 500mg PO BIDCM. Please consider ordering a hemoglobin A1c (last 8.6% 01/2019) if clinically appropriate. Thanks. Please continue to monitor renal function, glucose (last 217mg/dL - patient also on steroid which can increase glucose) and diarrhea. 6. Sciatica: gabapentin 100mg PO TIDCM and Medrol dose pack. Please continue to monitor renal function, increased hunger and glucose. 7. Muscle spams: baclofen 10mg PO TID PRN muscle spasms. Please continue to monitor for muscle spasms, dizziness and PRN usage. Psychotropic Medications: None Unnecessary Medications: None Bowel Regimen: Miralax 17gm PO daily, senna/docusate 2T PO BID and bisacodyl 10mg RC daily PRN constipation. Please continue to monitor for constipation and PRN usage. Date of Note:: 11/24/21
[2021-11-24 10:00] VITALS: PULSE 76; RESP 16; O2SAT 96
--- NOTE | 2021-11-24 10:30 | CASEMGMT ---
Social Work Met with patient to complete initial assessment. Introduced self and role. Pt wishes to have dtr be primary contact, and added son as secondary. Dtr lives local. Son lives out of state. Discussed code status and MOLST form. Pt confirms full code. MOLST communicated and placed in chart. Explained Medicare benefit. Encouraged to contact secondary insurance to ensure copay coverage. The goal is for pt to return home alone at [facility]. SW to continue to follow. Bette Sanchez, MICHAEL KURTZW
[2021-11-24] MEDS: Tuberculin,Purif.prot.deriv. 50 TU/ML Vial 0.1 ML ID (10:41)
--- NOTE | 2021-11-24 11:45 | NURSING ---
WASHED AND DRIED PT LOWER LEGS,LOTION APPLIED,TOE NAILS TRIMMED AND DRESSINGS CHANGED. BHUMIKA WRAPS REAPPLIED. PT TOLERATED WELL.
[2021-11-24 13:12] VITALS: BP 123/82; PULSE 76; RESP 16; TEMP 36.6; O2SAT 96
[2021-11-24] MEDS: Rivaroxaban 10 MG Tablet PO (17:19)
[2021-11-24] MEDS: Atorvastatin Calcium 40 MG Tablet PO (20:24)
[2021-11-25 05:00] VITALS: BP 152/72; PULSE 78; RESP 18; O2SAT 95
[2021-11-25] MEDS: Senna/Docusate Sodium 1 Tablet 2 TABLET PO ×2 (05:22→17:45)
[2021-11-25] MEDS: Lisinopril 5 MG Tablet PO (05:22)
[2021-11-25] MEDS: traMADol 50 MG Tablet PO (05:24)
[2021-11-25 06:16] LABS: Bedside Glucose 221 mg/dL (74-106)
[2021-11-25] MEDS: Gabapentin 100 MG Capsule PO ×3 (08:14→17:45)
[2021-11-25] MEDS: metFORMIN HCl 500 MG Tablet PO ×2 (08:14→17:43)
[2021-11-25] MEDS: MethylPREDNISolone DosePak 4 MG BOX PO ×4 (08:15→21:29)
[2021-11-25] MEDS: Acetaminophen 500 MG Tablet 1000 MG PO (08:17)
[2021-11-25] MEDS: Glucerna Shake 120 ML LIQUID PO ×3 (08:18→17:43)
--- NOTE | 2021-11-25 10:53 | WOUNDNOTE ---
wound photo: right lower leg
--- NOTE | 2021-11-25 10:54 | WOUNDNOTE ---
wound photo: left lower leg
[2021-11-25 13:31] VITALS: BP 119/71; PULSE 69; RESP 18; TEMP 36.7; O2SAT 96
--- NOTE | 2021-11-25 15:36 | CHAPLAIN ---
Type of Pastoral Visit ___ Initial Visit _x__ Follow-up Visit ___ On-call Visit ___ General Patient Visit ___ Spiritual Assessment ___ Family Conference ___ Bereavement ___ Rapid Response ___ Code Blue ___ Other (describe below) Pastoral Care Referral From _x__ Patient ___ Family ___ Nurse ___ Physician ___ Aquarium Tank Attendant ___ Sales Data Analyst ___ Other (describe below) Sacrament/Intervention _x__ Active listening ___ Anointing ___ Methodist ___ Bereavement ___ Communion ___ Trudi exploration ___ _x__ Life review _x__ Prayer ___ Reconciliation ___ Sacrament of Sick ___ Supportive presence ___ Wedding ___ Other (describe below) Pastoral Comments patient remembers this curriculum developer from visit during stay in [facility] last week; pt gives update and reports some improvement; pt gives some life review and asks curriculum developer questions; no other needs evident or mentioned; prayer given
[2021-11-25] MEDS: Rivaroxaban 10 MG Tablet PO (17:44)
[2021-11-25] MEDS: Atorvastatin Calcium 40 MG Tablet PO (21:30)
[2021-11-25 22:00] VITALS: PULSE 65; O2SAT 95
[2021-11-26 04:37] VITALS: BP 141/67; PULSE 67; RESP 18; TEMP 36.3; O2SAT 95
[2021-11-26] MEDS: Polyethylene Glycol 3350 17 GM PACKET PO (04:39)
[2021-11-26] MEDS: Senna/Docusate Sodium 1 Tablet 2 TABLET PO ×2 (04:39→17:52)
[2021-11-26] MEDS: Lisinopril 5 MG Tablet PO (04:39)
[2021-11-26 06:21] LABS: Bedside Glucose 154 mg/dL (74-106)
[2021-11-26] MEDS: Gabapentin 100 MG Capsule PO ×3 (07:13→17:52)
[2021-11-26] MEDS: metFORMIN HCl 500 MG Tablet PO ×2 (07:13→17:52)
[2021-11-26] MEDS: Glucerna Shake 120 ML LIQUID PO ×3 (07:13→17:51)
[2021-11-26] MEDS: MethylPREDNISolone DosePak 4 MG BOX PO ×3 (07:14→21:57)
[2021-11-26 10:00] VITALS: RESP 18
[2021-11-26 14:36] VITALS: BP 129/80; PULSE 68; RESP 16; TEMP 36.4; O2SAT 95
[2021-11-26] MEDS: Rivaroxaban 10 MG Tablet PO (17:52)
[2021-11-26] MEDS: Atorvastatin Calcium 40 MG Tablet PO (21:56)
[2021-11-27] MEDS: Polyethylene Glycol 3350 17 GM PACKET PO (05:42)
[2021-11-27] MEDS: Senna/Docusate Sodium 1 Tablet 2 TABLET PO ×2 (05:43→17:51)
[2021-11-27] MEDS: Lisinopril 5 MG Tablet PO (05:43)
[2021-11-27] MEDS: traMADol 50 MG Tablet PO ×2 (05:49→14:53)
[2021-11-27 06:26] LABS: Bedside Glucose 139 mg/dL (74-106)
[2021-11-27] MEDS: Gabapentin 100 MG Capsule PO ×3 (07:49→17:51)
[2021-11-27] MEDS: MethylPREDNISolone DosePak 4 MG BOX PO ×2 (07:49→20:59)
[2021-11-27] MEDS: metFORMIN HCl 500 MG Tablet PO ×2 (07:49→17:51)
[2021-11-27] MEDS: Glucerna Shake 120 ML LIQUID PO ×3 (08:00→17:50)
[2021-11-27 15:18] VITALS: BP 130/71; PULSE 64; RESP 16; TEMP 35.9; O2SAT 95
[2021-11-27] MEDS: Rivaroxaban 10 MG Tablet PO (17:52)
[2021-11-27 20:19] VITALS: PULSE 65; O2SAT 97
[2021-11-27] MEDS: Atorvastatin Calcium 40 MG Tablet PO (20:59)
[2021-11-28 05:00] VITALS: BP 131/71; PULSE 59; RESP 16; TEMP 36.7; O2SAT 97
[2021-11-28] MEDS: Acetaminophen 500 MG Tablet 1000 MG PO (05:18)
[2021-11-28] MEDS: traMADol 50 MG Tablet PO (05:19)
[2021-11-28] MEDS: Senna/Docusate Sodium 1 Tablet 2 TABLET PO ×2 (05:19→16:12)
[2021-11-28] MEDS: Polyethylene Glycol 3350 17 GM PACKET PO (05:20)
[2021-11-28] MEDS: Lisinopril 5 MG Tablet PO (05:20)
[2021-11-28 06:21] LABS: Bedside Glucose 151 mg/dL (74-106)
[2021-11-28] MEDS: Gabapentin 100 MG Capsule PO ×3 (08:08→16:13)
[2021-11-28] MEDS: metFORMIN HCl 500 MG Tablet PO ×2 (08:08→16:11)
[2021-11-28] MEDS: Glucerna Shake 120 ML LIQUID PO ×3 (08:08→16:11)
[2021-11-28] MEDS: MethylPREDNISolone DosePak 4 MG BOX PO (08:14)
[2021-11-28 14:40] VITALS: BP 117/82; PULSE 75; RESP 18; TEMP 36.2; O2SAT 97
[2021-11-28] MEDS: Rivaroxaban 10 MG Tablet PO (16:11)
[2021-11-28] MEDS: Atorvastatin Calcium 40 MG Tablet PO (20:07)
--- NOTE | 2021-11-28 21:12 | NURSING ---
Dressings to [facility] changed per order.
[2021-11-29] MEDS: Acetaminophen 500 MG Tablet 1000 MG PO ×2 (00:14→22:04)
[2021-11-29] MEDS: Senna/Docusate Sodium 1 Tablet 2 TABLET PO (05:07)
[2021-11-29] MEDS: Polyethylene Glycol 3350 17 GM PACKET PO (05:07)
[2021-11-29] MEDS: Lisinopril 5 MG Tablet PO (05:07)
[2021-11-29] MEDS: traMADol 50 MG Tablet PO ×3 (05:12→20:18)
[2021-11-29 06:25] LABS: Bedside Glucose 121 mg/dL (74-106)
--- NOTE | 2021-11-29 06:40 | NURSING ---
Patient observed sitting in recliner, legs dangling. Patient encouraged to elevate legs. Patient declines at this time, stating that he sleeps better when his legs are not elevated. Education provided to patient. PRN Tramadol given per nursing order for pain.
[2021-11-29] MEDS: Glucerna Shake 120 ML LIQUID PO ×3 (07:54→16:47)
[2021-11-29] MEDS: Gabapentin 100 MG Capsule PO ×3 (07:54→16:49)
[2021-11-29] MEDS: metFORMIN HCl 500 MG Tablet PO ×2 (07:54→16:48)
[2021-11-29 10:00] VITALS: BP 125/80; PULSE 60; RESP 16; RESP 18; TEMP 36.4; O2SAT 96
[2021-11-29] MEDS: Rivaroxaban 10 MG Tablet PO (16:48)
[2021-11-29] MEDS: Atorvastatin Calcium 40 MG Tablet PO (20:19)
[2021-11-30] MEDS: Baclofen 10 MG Tablet PO ×3 (00:44→17:17)
[2021-11-30] MEDS: traMADol 50 MG Tablet PO ×3 (02:18→20:05)
[2021-11-30] MEDS: Polyethylene Glycol 3350 17 GM PACKET PO (06:04)
[2021-11-30] MEDS: Lisinopril 5 MG Tablet PO (06:08)
[2021-11-30] MEDS: Senna/Docusate Sodium 1 Tablet 2 TABLET PO ×2 (06:08→17:18)
[2021-11-30] MEDS: Acetaminophen 500 MG Tablet 1000 MG PO ×2 (06:10→13:35)
[2021-11-30 06:21] LABS: Bedside Glucose 113 mg/dL (74-106)
[2021-11-30] MEDS: Glucerna Shake 120 ML LIQUID PO (07:22)
[2021-11-30] MEDS: metFORMIN HCl 500 MG Tablet PO ×2 (07:23→17:17)
[2021-11-30] MEDS: Gabapentin 100 MG Capsule PO ×3 (07:23→17:18)
[2021-11-30 10:00] VITALS: BP 112/60; PULSE 66; RESP 16; TEMP 36; O2SAT 93
--- NOTE | 2021-11-30 11:40 | CASEMGMT ---
Social Work BIMS and PHQ-9 completed for MDS assessment. Bette Sanchez, ASSISTANT PROFESSOR IN FAMILY STUDIES PLANT AND MAINTENANCE TECHNICIAN
--- NOTE | 2021-11-30 12:59 | NURSING ---
Pt has been c/o increased pain to right hip today that radiates to his groin and knee. He states it is a sharp, cramping pain and pain medication has only provided a little relief, kpad was added and has seemed to help a little. Pt sleeps in recliner with his legs down. This nurse educated pt on importance of repositioning and offered to put pts leg up or assist him into bed. Pt refusing stating he feels like that would make the pain worse. Bottom assessed and it is red, blanchable and intact at this time. Message was left for Dr. Mcwilliams updating him on increased pain level.
--- NOTE | 2021-11-30 13:24 | MDS.RN ---
Completed pain interview for AILEEN 11/30/21
[2021-11-30] MEDS: Rivaroxaban 10 MG Tablet PO (17:17)
--- NOTE | 2021-11-30 18:21 | NURSING ---
Addendum entered by Ana Sebastian 11/30/21 18:42: Dr. Bond in tonight for consult and states he will do hip injection in the OR tomorrow, NPO after midnight, ok to take medications Original Note: Dr. Bond updated on need for consult
[2021-11-30] MEDS: Atorvastatin Calcium 40 MG Tablet PO (20:06)
[2021-12-01] MEDS: traMADol 50 MG Tablet PO ×2 (02:05→08:58)
[2021-12-01] MEDS: Acetaminophen 500 MG Tablet 1000 MG PO (05:20)
[2021-12-01] MEDS: Baclofen 10 MG Tablet PO (05:21)
[2021-12-01] MEDS: Lisinopril 5 MG Tablet PO (05:22)
[2021-12-01] MEDS: Senna/Docusate Sodium 1 Tablet 2 TABLET PO ×2 (05:23→17:40)
[2021-12-01 05:40] LABS: Absolute Lymphocyte Count 1.64 X10^3/uL (0.83-4.51); Absolute Neutrophil Count 6.8 X10^3/uL (2.0-7.7); Basophil# 0.04 X10^3/uL; Basophil% 0.4 % (0-1); Eosinophil# 0.09 X10^3/uL; Eosinophils% 0.9 % (0-5); Hematocrit 41.5 % (40-54); Hemoglobin 13.5 g/dL (13.0-16.5); Lymphocyte # 1.64 X10^3/ul (0.83-4.51); Lymphocyte % 17.1 % (19-41); Mean Corp Hgb Conc 32.5 g/dL (32-36); Mean Corpuscular Hgb 30.8 pg (27.0-32.0); Mean Corpuscular Volume 94.7 fL (80-94); Mean Platelet Vol. 9.6 fl (6.2-12.0); Monocyte# 0.89 X10^3/uL; Monocyte% 9.3 % (0-10); NRBC Flagged by Analyzer 0 % (0-5); Neutrophil # 6.83 X10^3/uL (2.7-7.7); Neutrophil % 71.2 % (47-70); Platelet Count 317 K/mm3 (150-450); RBC Distribution Width CV 13.2 % (11.6-14.6); RBC Distribution Width SD 45.9 fl (35.1-43.9); Red Blood Count 4.38 M/mm3 (4.6-6.2); White Blood Count 9.6 K/mm3 (4.4-11.0)
[2021-12-01 06:20] LABS: Bedside Glucose 114 mg/dL (74-106)
[2021-12-01 06:24] LABS: Anion Gap 5 (5-15); BUN 61 mg/dL (7-18); BUN/Creat Ratio 45.9 RATIO (10-20); Calcium,Total 9.3 mg/dL (8.5-10.1); Chloride 102 mmol/L (98-107); Creatinine, Serum 1.33 mg/dL (0.70-1.30); EST Glomerular Filtration Rate 56 mL/min (>60); Est Glom Filt Rate - Afr Amer 68 mL/min (>60); Estimated Creatinine Clearance 49.47 ml/min; Glucose 111 mg/dL (74-106); Sodium Level 136 mmol/L (136-145)
[2021-12-01] MEDS: metFORMIN HCl 500 MG Tablet PO ×2 (07:23→17:40)
[2021-12-01] MEDS: Gabapentin 100 MG Capsule PO ×3 (07:23→17:41)
[2021-12-01] MEDS: Tuberculin,Purif.prot.deriv. 50 TU/ML Vial 0.1 ML ID (09:56)
--- NOTE | 2021-12-01 14:08 | NURSING ---
Addendum entered by Ana Sebastian 12/01/21 18:02: pt back on floor Original Note: pt left floor at this time for hip injection in AC
[2021-12-01] MEDS: Rivaroxaban 10 MG Tablet PO (17:40)
[2021-12-01 18:31] VITALS: BP 117/70; PULSE 100; RESP 18; TEMP 36.6; O2SAT 94
[2021-12-01 21:40] VITALS: BP 150/84; PULSE 93; RESP 16; TEMP 36.4; O2SAT 92
[2021-12-01] MEDS: Atorvastatin Calcium 40 MG Tablet PO (21:45)
[2021-12-02] MEDS: Senna/Docusate Sodium 1 Tablet 2 TABLET PO ×2 (04:41→17:41)
[2021-12-02] MEDS: Lisinopril 5 MG Tablet PO (04:41)
[2021-12-02] MEDS: Menthol/Lanolin/Calamine/Znox 113 GM Tube 1 APPLIC TOPICAL (04:43)
[2021-12-02 04:46] VITALS: BP 148/79; PULSE 89; RESP 18; TEMP 36.3; O2SAT 93
[2021-12-02 06:20] LABS: Bedside Glucose 199 mg/dL (74-106)
[2021-12-02 06:28] LABS: Anion Gap 6 (5-15); BUN 50 mg/dL (7-18); Calcium,Total 8.9 mg/dL (8.5-10.1); Chloride 105 mmol/L (98-107); Creatinine, Serum 1.19 mg/dL (0.70-1.30); EST Glomerular Filtration Rate 64 mL/min (>60); Est Glom Filt Rate - Afr Amer 77 mL/min (>60); Estimated Creatinine Clearance 55.29 ml/min; Glucose 174 mg/dL (74-106); Potassium 4.9 mmol/L (3.5-5.1); Sodium Level 138 mmol/L (136-145)
[2021-12-02] MEDS: Gabapentin 100 MG Capsule PO ×3 (08:38→17:41)
[2021-12-02] MEDS: metFORMIN HCl 500 MG Tablet PO ×2 (08:38→17:41)
[2021-12-02] MEDS: Acetaminophen 500 MG Tablet 1000 MG PO (08:40)
[2021-12-02 10:35] VITALS: PULSE 87; RESP 18; O2SAT 97
--- NOTE | 2021-12-02 12:58 | CASEMGMT ---
Addendum entered by Bette Sanchez 12/03/21 14:47: Followed up with pt to confirm DC. Provided HHC list with quality and resource data. [facility] Referral made for PT/OT/SN. Referral sent to [facility] for FWW. Original Note: Social Work IDT met with patient and dtr via conference call for care plan meeting. Discussed patient's progress in PT/OT and nursing. Patient progressing well. Explained Medicare benefit. Encouraged to contact secondary insurance to ensure copay coverage. The goal is for pt to return home alone. Encouraged dtr to have family/friends/neighbors check in more frequently with pt to ensure safe transition home. SW to order skilled HHC and FWW, per dtr request. Pt is requesting to DC home soon. IDT/pt/dtr agreeable to DC one week, 12/09. Dtr wants to ensure pt remains strong after the weekend. IDT agree. SW to continue to follow. Plan: anticipated DC 12/09, home alone, HHC PT/OT/SN, FWW Bette Sanchez, GEODESIST LAUNDRY HELPER
[2021-12-02 14:27] VITALS: BP 137/83; PULSE 77; RESP 14; TEMP 36.7; O2SAT 98
[2021-12-02] MEDS: Rivaroxaban 10 MG Tablet PO (17:40)
[2021-12-02] MEDS: Atorvastatin Calcium 40 MG Tablet PO (19:56)
[2021-12-03] MEDS: Senna/Docusate Sodium 1 Tablet 2 TABLET PO (04:07)
[2021-12-03] MEDS: Acetaminophen 500 MG Tablet 1000 MG PO (04:08)
[2021-12-03] MEDS: Lisinopril 5 MG Tablet PO (04:08)
[2021-12-03] MEDS: traMADol 50 MG Tablet PO (04:08)
[2021-12-03] MEDS: Menthol/Lanolin/Calamine/Znox 113 GM Tube 1 APPLIC TOPICAL ×2 (04:10→17:11)
[2021-12-03 04:13] VITALS: BP 146/88
--- NOTE | 2021-12-03 04:18 | NURSING ---
Patient requesting pain medication and AM meds at this time. States that he would like to be able to sleep until he has to get up.
[2021-12-03 06:21] LABS: Bedside Glucose 134 mg/dL (74-106)
[2021-12-03] MEDS: metFORMIN HCl 500 MG Tablet PO ×2 (07:42→17:10)
[2021-12-03] MEDS: Gabapentin 100 MG Capsule PO ×3 (07:42→17:10)
--- NOTE | 2021-12-03 10:28 | NURSING ---
Tune Up Mechanic Note: Late Entry: MDS Section F interview and entry completed on 11/30/21 for AILEEN of 11/30/21.
[2021-12-03 13:45] VITALS: BP 125/65; PULSE 72; RESP 16; TEMP 36; O2SAT 96
[2021-12-03] MEDS: Rivaroxaban 10 MG Tablet PO (17:10)
--- NOTE | 2021-12-03 19:20 | DS.PCM_ITS ---
Providers Date of Admission: 11/23/21 Primary Care Physician: Dr. Mitch Mcwilliams MD Consultations 11/23/21 22:18 Consult: Onc/Wound/chief airline radio operator Routine Comment: BLE OPEN AREAS Reason for Consult:: PT STATES HAS HAD FOR PERIOD OF TIME, UNABLE TO HEAL AT HOME 11/30/21 17:41 Consult: Pain Management Routine Consulting Provider: Cole Bond Reason for Consult: Right hip pain. EMERGENT Consult: No MD Notified: Yes Date Notified: 11/30/21 Time Notified: 17:41 Method of Notification: phone call Reason For Visit: DEBILITY AND FALLS Diagnosis Discharge Diagnosis (1) Debility: Status: Acute Code(s): R53.81 - Other malaise (2) Fall: Status: Acute Code(s): W19.XXXA - Unspecified fall, initial encounter (3) Closed head injury: Status: Acute Code(s): S09.90XA - Unspecified injury of head, initial encounter (4) Sciatica: Code(s): M54.30 - Sciatica, unspecified side (5) Hyperlipidemia: Status: Acute Code(s): E78.5 - Hyperlipidemia, unspecified (6) Hypertension: Status: Chronic Code(s): I10 - Essential (primary) hypertension (7) Diabetes mellitus: Status: Acute Code(s): E11.9 - Type 2 diabetes mellitus without complications (8) Diabetic polyneuropathy: Status: Acute Code(s): E11.42 - Type 2 diabetes mellitus with diabetic polyneuropathy (9) Muscle spasm: Status: Acute Code(s): M62.838 - Other muscle spasm Medications at Discharge Home Medications atorvastatin 40 mg PO QHS 11/07/18 lisinopril 5 mg PO DAILY 04/25/19 metformin 500 mg PO BID 02/03/20 acetaminophen 1,000 mg PO Q6H PRN PRN #0 tab 12/03/21 gabapentin 100 mg PO TIDCM 30 Days #90 cap 12/03/21 tramadol 50 mg PO Q6H PRN PRN 7 Days #28 tab 12/03/21 Hospital Course Operations None Procedures - (Right hip intraarticular steroid injection. ) Summary of Care Provided Minutes Spent on Discharge: 35 Hospital Course: 71 year old male with below past medical history hospitalized for fall, sciatica, admitted to TCU with debility, here for rehabilitation, strengthening, prior to discharge home alone. 12/01/2021 Dr. Bond performed right hip intraarticular steroid injection. Discharge home alone 12/09/2021, [facility] PT/OT/SN, Front Wheeled Walker. Physical Exam Const alert General Appearance: cooperative HEENT normocephalic Eyes PERRL and EOMs intact bilaterally Neck supple, no JVD and no carotid bruits Resp normal respiratory effort, normal air movement and clear to auscultation bilaterally Cardio regular rate and regular rhythm GI normal to inspection, nondistended, normoactive bowel sounds, non-tender and non-distended Extremity normal capillary refill General Extremity: Negative for edema Skin no rashes or lesions noted General Skin Exam: no breakdown Psych affect normal Appearance: appropriate Weight / BMI Weight Weight: 102.875 kg Body Mass Index (BMI) 33.4 ABG / Lab / Microbiology Data Result Diagrams: 12/01/21 05:14 12/02/21 05:09 Laboratory: Laboratory Results - last 24 hr 12/03/21 06:06: POC Glucose 134 H Microbiology: Microbiology 11/30/21 06:50 Nasal Secretion SARS-CoV-2 Antigen (Rapid) - Final D/C Instructions Discharge Diet: No restrictions Discharge Activity: Return to Normal Activity, May Shower and Use Walker Weight Bearing Status: Weight bearing as tolerated Call your doctor if you observe: Fever of 101 or Higher, Inability to urinate, Inability to have a bowel movement, Shortness of breath, Dizziness, Fainting spells, Swelling in the ankles, Chest pain and Uncontrolled pain Additional Instructions: Discharge home alone 12/09/2021, [facility] PT/OT/SN, Front Wheeled Walker. Meaningful Use Info Meaningful Use Diagnoses (Choose all that apply): None applicable Discharge Plan Admission Admit Date/Time: 11/23/21 18:00 Primary Reason for Your Visit: Debility. Attending Provider: Mitch Mcwilliams Chi Primary Care Provider: Mitch Mcwilliams Chi Consulting Providers: Cole Bond Instructions Additional Instructions / Restrictions: Discharge home alone 12/09/2021, [facility] PT/OT/SN, Front Wheeled Walker. Discharge Orders/Prescriptions Prescriptions: New acetaminophen 500 mg Tablet 1,000 mg PO Q6H PRN PRN (Reason: Pain Score 1-3) Qty: 0 RF: 0 tramadol 50 mg Tablet 50 mg PO Q6H PRN PRN (Reason: Pain Score 4-10) 7 Days Qty: 28 RF: 0 gabapentin 100 mg Capsule 100 mg PO TIDCM 30 Days Qty: 90 RF: 0 Continued atorvastatin 40 MG tablet 40 mg PO QHS RF: 0 lisinopril 5 MG tablet 5 mg PO DAILY RF: 0 metformin 500 MG tablet 500 mg PO BID RF: 0 Discontinued acetaminophen 500 MG tablet 500 mg PO Q4H PRN PRN (Reason: Pain) Qty: 20 RF: 0 gabapentin 100 mg capsule 100 mg PO DAILY RF: 0 diazepam [Valium] 2 mg tablet 2 mg PO BID PRN (Reason: muscle spasm) Qty: 10 RF: 0 prednisone 20 mg tablet 40 mg PO DAILY RF: 0 hydrocodone-acetaminophen 5-325 mg tablet 1 tab PO Q6H PRN PRN (Reason: Pain) 3 Days Qty: 12 RF: 0 Referrals / Follow Up: Mitch Mcwilliams Chi, MD [Primary Care Provider] - Within 1 Week Disposition Disposition (needs filled in before D/C Order can be placed): Home Health Service
[2021-12-03] MEDS: Atorvastatin Calcium 40 MG Tablet PO (19:40)
[2021-12-04] MEDS: Lisinopril 5 MG Tablet PO (04:41)
[2021-12-04] MEDS: Menthol/Lanolin/Calamine/Znox 113 GM Tube 1 APPLIC TOPICAL ×2 (04:43→17:47)
[2021-12-04 05:44] VITALS: BP 143/88; PULSE 67
[2021-12-04 06:15] LABS: Bedside Glucose 147 mg/dL (74-106)
[2021-12-04] MEDS: metFORMIN HCl 500 MG Tablet PO ×2 (07:44→17:48)
[2021-12-04] MEDS: Gabapentin 100 MG Capsule PO ×3 (07:44→17:47)
[2021-12-04] MEDS: Acetaminophen 500 MG Tablet 1000 MG PO ×2 (07:46→23:53)
[2021-12-04 10:00] VITALS: PULSE 67; RESP 18; O2SAT 97
[2021-12-04 14:04] VITALS: BP 125/63; PULSE 61; RESP 16; TEMP 36; O2SAT 98
--- NOTE | 2021-12-04 16:04 | PCA ---
Called this morning & left a message with Vikash's daughter regarding his d/c appointment with Dr. Mcwilliams on 12/09 @ 10:00a. No response as of 4:00p
[2021-12-04] MEDS: Rivaroxaban 10 MG Tablet PO (17:47)
[2021-12-04] MEDS: Atorvastatin Calcium 40 MG Tablet PO (20:12)
[2021-12-05] MEDS: Lisinopril 5 MG Tablet PO (05:17)
[2021-12-05] MEDS: Senna/Docusate Sodium 1 Tablet 2 TABLET PO (05:17)
[2021-12-05] MEDS: Menthol/Lanolin/Calamine/Znox 113 GM Tube 1 APPLIC TOPICAL ×2 (05:18→21:55)
[2021-12-05] MEDS: Polyethylene Glycol 3350 17 GM PACKET PO (05:18)
[2021-12-05 06:21] LABS: Bedside Glucose 111 mg/dL (74-106)
[2021-12-05] MEDS: metFORMIN HCl 500 MG Tablet PO ×2 (08:26→17:24)
[2021-12-05] MEDS: Gabapentin 100 MG Capsule PO ×3 (08:26→17:23)
[2021-12-05 10:00] VITALS: RESP 18
[2021-12-05 11:06] LABS: Bedside Glucose 160 mg/dL (74-106)
--- NOTE | 2021-12-05 14:10 | NURSING ---
PER HARMONY/THERAPY, PT IS AB GIL IN ROOM AND HALLS BUT WILL NEED HELP WASHING UP. RN AWARE
--- NOTE | 2021-12-05 14:26 | NURSING ---
PT DRESSINGS TO LEGS WERE REDONE AT 8:30 AM THIS MORNING AFTER PT GOT OUT OF SHOWER BY THIS NURSE.
[2021-12-05 16:00] VITALS: BP 120/65; PULSE 74; RESP 16; TEMP 36.3; O2SAT 95
[2021-12-05] MEDS: Rivaroxaban 10 MG Tablet PO (17:23)
[2021-12-05] MEDS: Acetaminophen 500 MG Tablet 1000 MG PO (21:48)
[2021-12-05] MEDS: Atorvastatin Calcium 40 MG Tablet PO (21:49)
[2021-12-06 06:25] LABS: Bedside Glucose 106 mg/dL (74-106)
[2021-12-06] MEDS: Polyethylene Glycol 3350 17 GM PACKET PO (06:28)
[2021-12-06] MEDS: Senna/Docusate Sodium 1 Tablet 2 TABLET PO ×2 (06:29→17:50)
[2021-12-06] MEDS: Lisinopril 5 MG Tablet PO (06:30)
[2021-12-06] MEDS: Menthol/Lanolin/Calamine/Znox 113 GM Tube 1 APPLIC TOPICAL ×2 (06:31→17:52)
[2021-12-06] MEDS: Gabapentin 100 MG Capsule PO ×3 (07:34→17:50)
[2021-12-06] MEDS: Acetaminophen 500 MG Tablet 1000 MG PO ×2 (07:34→19:43)
[2021-12-06] MEDS: metFORMIN HCl 500 MG Tablet PO ×2 (07:34→17:50)
[2021-12-06 08:25] VITALS: PULSE 68; RESP 18; O2SAT 96
[2021-12-06 16:00] VITALS: BP 128/70; PULSE 55; RESP 16; TEMP 36.4; O2SAT 94
[2021-12-06] MEDS: Rivaroxaban 10 MG Tablet PO (17:50)
[2021-12-06] MEDS: Atorvastatin Calcium 40 MG Tablet PO (19:40)
[2021-12-07] MEDS: Menthol/Lanolin/Calamine/Znox 113 GM Tube 1 APPLIC TOPICAL ×2 (05:41→17:40)
[2021-12-07] MEDS: Lisinopril 5 MG Tablet PO (05:44)
[2021-12-07] MEDS: Senna/Docusate Sodium 1 Tablet 2 TABLET PO ×2 (05:44→17:38)
[2021-12-07] MEDS: Polyethylene Glycol 3350 17 GM PACKET PO (05:44)
[2021-12-07] MEDS: Acetaminophen 500 MG Tablet 1000 MG PO ×2 (05:46→20:09)
[2021-12-07 06:20] LABS: Bedside Glucose 111 mg/dL (74-106)
[2021-12-07] MEDS: metFORMIN HCl 500 MG Tablet PO ×2 (08:00→17:38)
[2021-12-07] MEDS: Gabapentin 100 MG Capsule PO ×3 (08:00→17:38)
--- NOTE | 2021-12-07 14:23 | WOUNDNOTE ---
wound photo: right lower leg
--- NOTE | 2021-12-07 14:23 | WOUNDNOTE ---
wound photo: left lower leg
[2021-12-07 15:48] VITALS: BP 114/70; PULSE 68; RESP 18; TEMP 36.6; O2SAT 94
[2021-12-07] MEDS: Rivaroxaban 10 MG Tablet PO (17:38)
[2021-12-07] MEDS: Atorvastatin Calcium 40 MG Tablet PO (20:07)
[2021-12-07 21:56] VITALS: PULSE 87; RESP 16; O2SAT 98
[2021-12-08] MEDS: Senna/Docusate Sodium 1 Tablet 2 TABLET PO (05:19)
[2021-12-08] MEDS: Lisinopril 5 MG Tablet PO (05:19)
[2021-12-08] MEDS: Polyethylene Glycol 3350 17 GM PACKET PO (05:19)
[2021-12-08] MEDS: Menthol/Lanolin/Calamine/Znox 113 GM Tube 1 APPLIC TOPICAL (05:19)
[2021-12-08 05:36] LABS: Absolute Lymphocyte Count 1.75 X10^3/uL (0.83-4.51); Absolute Neutrophil Count 7.4 X10^3/uL (2.0-7.7); Basophil# 0.01 X10^3/uL; Basophil% 0.1 % (0-1); Eosinophil# 0.16 X10^3/uL; Eosinophils% 1.6 % (0-5); Hematocrit 39.5 % (40-54); Hemoglobin 12.8 g/dL (13.0-16.5); Lymphocyte # 1.75 X10^3/ul (0.83-4.51); Lymphocyte % 17.4 % (19-41); Mean Corp Hgb Conc 32.4 g/dL (32-36); Mean Corpuscular Hgb 30.3 pg (27.0-32.0); Mean Corpuscular Volume 93.4 fL (80-94); Mean Platelet Vol. 9.5 fl (6.2-12.0); Monocyte# 0.66 X10^3/uL; Monocyte% 6.6 % (0-10); NRBC Flagged by Analyzer 0 % (0-5); Neutrophil # 7.37 X10^3/uL (2.7-7.7); Neutrophil % 73.1 % (47-70); Platelet Count 299 K/mm3 (150-450); RBC Distribution Width CV 13.1 % (11.6-14.6); RBC Distribution Width SD 44.8 fl (35.1-43.9); Red Blood Count 4.23 M/mm3 (4.6-6.2); White Blood Count 10.1 K/mm3 (4.4-11.0)
[2021-12-08 05:55] LABS: Anion Gap 6 (5-15); BUN 41 mg/dL (7-18); BUN/Creat Ratio 36.6 RATIO (10-20); Calcium,Total 8.8 mg/dL (8.5-10.1); Chloride 106 mmol/L (98-107); Creatinine, Serum 1.12 mg/dL (0.70-1.30); EST Glomerular Filtration Rate 68 mL/min (>60); Est Glom Filt Rate - Afr Amer 83 mL/min (>60); Estimated Creatinine Clearance 56.83 ml/min; Glucose 113 mg/dL (74-106); Potassium 4.9 mmol/L (3.5-5.1); Sodium Level 137 mmol/L (136-145)
[2021-12-08 06:25] LABS: Bedside Glucose 105 mg/dL (74-106)
[2021-12-08] MEDS: metFORMIN HCl 500 MG Tablet PO ×2 (08:27→18:00)
[2021-12-08] MEDS: Gabapentin 100 MG Capsule PO ×3 (08:27→18:01)
[2021-12-08 09:45] VITALS: PULSE 72; RESP 18; O2SAT 96
--- NOTE | 2021-12-08 11:59 | CASEMGMT ---
Social Work BIMS and PHQ-9 completed for MDS assessment. Bette Sanchez, STATE [employer]HW[employer] POLICE OFFICER SPRAYING MACHINE OPERATOR
[2021-12-08 13:56] VITALS: BP 124/75; PULSE 75; RESP 16; TEMP 36.4; O2SAT 96
[2021-12-08] MEDS: Rivaroxaban 10 MG Tablet PO (18:01)
[2021-12-08] MEDS: Atorvastatin Calcium 40 MG Tablet PO (20:02)
[2021-12-09] MEDS: Acetaminophen 500 MG Tablet 1000 MG PO (00:14)
[2021-12-09] MEDS: Lisinopril 5 MG Tablet PO (06:14)
[2021-12-09] MEDS: Senna/Docusate Sodium 1 Tablet 2 TABLET PO (06:15)
[2021-12-09] MEDS: Polyethylene Glycol 3350 17 GM PACKET PO (06:15)
[2021-12-09 06:20] LABS: Bedside Glucose 121 mg/dL (74-106)
[2021-12-09 06:37] VITALS: PULSE 72; RESP 18; O2SAT 96
[2021-12-09 06:48] VITALS: BP 136/76; PULSE 72; RESP 18; TEMP 36.3; O2SAT 96
[2021-12-09] MEDS: metFORMIN HCl 500 MG Tablet PO (07:42)
[2021-12-09] MEDS: Gabapentin 100 MG Capsule PO ×2 (07:42→13:23)
[2021-12-09 13:25] VITALS: BP 122/57; PULSE 70; RESP 18; TEMP 36.5; O2SAT 94
== END 2021-12-09 15:15 | disposition home health service (06) | DRG 950 ==
PROVIDERS: Admitting Provider Family Medicine Geriatric Medicine; PCP Family Medicine Geriatric Medicine; Visit Provider Family Medicine Geriatric Medicine
DX: S09.90XD Unspecified injury of head, subsequent encounter (principal); E11.42 Type 2 diabetes mellitus with diabetic polyneuropathy; M16.11 Unilateral primary osteoarthritis, right hip; M17.12 Unilateral primary osteoarthritis, left knee; W10.9XXD Fall (on) (from) unspecified stairs and steps, subsequent encounter; E78.5 Hyperlipidemia, unspecified; M54.30 Sciatica, unspecified side; I10 Essential (primary) hypertension; Z79.899 Other long term (current) drug therapy; Z79.52 Long term (current) use of systemic steroids; Z79.84 Long term (current) use of oral hypoglycemic drugs; G89.29 Other chronic pain; S81.801D Unspecified open wound, right lower leg, subsequent encounter; S81.802D Unspecified open wound, left lower leg, subsequent encounter; X58.XXXD Exposure to other specified factors, subsequent encounter
CPT/HCPCS: 36415; 80048; 82962; 85025; 87426; 97032; 97110; 97116; 97162; 97166; 97530; 97535; 97802; J7120; J3490

== ENCOUNTER → 2021-12-01 | Day surgery (SDC) | payer MEDICARE, OTHER, SELFPAY ==
[2021-12-01 15:10] VITALS: BP 131/71; PULSE 77; RESP 18; TEMP 36.2; O2SAT 95; BMI 33.5
[2021-12-01] MEDS: Lactated Ringers 1,000 ML 15 ML IV (15:16)
--- NOTE | 2021-12-01 16:20 | RAD_ITS ---
PROCEDURE: Right hip injection. DATE OF EXAMINATION: 12/01/2021. INDICATION: Male, 71 years old. Chronic hip pain. FLUOROSCOPY TIME (if supplied): (8 seconds) minutes/seconds. 2 images were obtained. RAD/Fluoro Guided Needle Placement IMPRESSION: Intraoperative images are provided for right hip injection. Electronically Signed: Maurice Warren MD at 13:33 EDT ,
[2021-12-01 16:40] VITALS: BP 131/71; BP 142/79; PULSE 70; RESP 16; TEMP 36.6; O2SAT 96
[2021-12-01 16:45] VITALS: BP 131/71; BP 151/69; PULSE 73; RESP 16; O2SAT 94
[2021-12-01 16:50] VITALS: BP 122/87; BP 131/71; PULSE 82; RESP 16; O2SAT 95
[2021-12-01 16:55] VITALS: BP 131/71; BP 133/73; PULSE 79; RESP 16; TEMP 36.4; O2SAT 95
[2021-12-01 17:15] VITALS: BP 131/71
[2021-12-02 07:00] LABS: Bedside Glucose 114 mg/dL (74-106)
== END | disposition home or self-care (01) ==
LOC: PAT 12-04 15:50
PROVIDERS: PCP Family Medicine Geriatric Medicine; Visit Provider Anesthesiology Pain Medicine
PROC: 3E0U3GC Introduction of Other Therapeutic Substance into Joints, Percutaneous Approach (ICD-10-PCS; CPT 20610; principal; 2021-12-01 15:40)
DX: M16.11 Unilateral primary osteoarthritis, right hip (principal); E11.42 Type 2 diabetes mellitus with diabetic polyneuropathy; Z79.899 Other long term (current) drug therapy; Z79.84 Long term (current) use of oral hypoglycemic drugs; G89.29 Other chronic pain; E78.5 Hyperlipidemia, unspecified; I10 Essential (primary) hypertension; M54.30 Sciatica, unspecified side
CPT/HCPCS: 20610; 01991; 76000; 77002; 82962

== ENCOUNTER → 2022-04-29 | Outpatient (CLI) | payer MEDICARE, OTHER, SELFPAY ==
[2022-04-29 11:58] LABS: Absolute Lymphocyte Count 2.15 X10^3/uL (0.83-4.51); Absolute Neutrophil Count 4.3 X10^3/uL (2.0-7.7); Basophil# 0.03 X10^3/uL; Basophil% 0.4 % (0-1); Eosinophils% 1.4 % (0-5); Hematocrit 44.6 % (40-54); Hemoglobin 14.7 g/dL (13.0-16.5); Lymphocyte # 2.15 X10^3/ul (0.83-4.51); Lymphocyte % 29.8 % (19-41); Mean Corpuscular Hgb 30.6 pg (27.0-32.0); Mean Corpuscular Volume 92.7 fL (80-94); Mean Platelet Vol. 10.1 fl (6.2-12.0); Monocyte# 0.54 X10^3/uL; Monocyte% 7.5 % (0-10); NRBC Flagged by Analyzer 0 % (0-5); Neutrophil # 4.33 X10^3/uL (2.7-7.7); Neutrophil % 60.1 % (47-70); Platelet Count 310 K/mm3 (150-450); RBC Distribution Width CV 12.3 % (11.6-14.6); RBC Distribution Width SD 42.2 fl (35.1-43.9); Red Blood Count 4.81 M/mm3 (4.6-6.2); White Blood Count 7.2 K/mm3 (4.4-11.0)
[2022-04-29 12:21] LABS: Vitamin D,25 Hydroxy 17.3 ng/mL
[2022-04-29 12:30] LABS: ALB/GLOB Ratio 1.1 RATIO (0.9-2.4); AST(SGOT) 10 U/L (15-37); Alanine Aminotransfer ALT/SGPT 17 U/L (16-61); Albumin, Serum 3.7 g/dL (3.2-5.0); Alkaline Phosphatase 88 U/L (45-117); Anion Gap 10 (5-15); BUN 24 mg/dL (7-18); BUN/Creat Ratio 22.2 RATIO (10-20); Calcium,Total 9.2 mg/dL (8.5-10.1); Chloride 105 mmol/L (98-107); Creatinine, Serum 1.08 mg/dL (0.70-1.30); EST Glomerular Filtration Rate 71 mL/min (>60); Est Glom Filt Rate - Afr Amer 86 mL/min (>60); Globulin 3.3 g/dL (2.2-4.2); Glucose 148 mg/dL (74-106); Potassium 3.8 mmol/L (3.5-5.1); Sodium Level 141 mmol/L (136-145); Thyroid Stim Hormone (TSH) 1.26 uIU/mL (0.358-3.74)
== END | disposition home or self-care (01) ==
LOC: POLAB3 08:57
PROVIDERS: PCP Family Medicine Geriatric Medicine; Visit Provider Family Medicine Geriatric Medicine
DX: E11.65 Type 2 diabetes mellitus with hyperglycemia (principal); E55.9 Vitamin D deficiency, unspecified; F52.8 Other sexual dysfunction not due to a substance or known physiological condition; I10 Essential (primary) hypertension
CPT/HCPCS: 36415; 80053; 82306; 84403; 84443; 85025

== ENCOUNTER → 2022-06-24 | Outpatient (CLI) | payer MEDICARE, OTHER, SELFPAY ==
[2022-06-24 11:23] LABS: PSA,Total - Annual Screen 0.49 ng/mL (0.00-4.00)
== END | disposition home or self-care (01) ==
LOC: LAB 10:32
PROVIDERS: PCP Family Medicine Geriatric Medicine; Visit Provider Registered Nurse
DX: Z12.5 Encounter for screening for malignant neoplasm of prostate (principal)
CPT/HCPCS: 36415; 84153; G0103

== ENCOUNTER 2022-08-10 20:59 | Emergency (ER) | payer MEDICARE, OTHER, SELFPAY ==
[2022-08-10 20:59] VITALS: BP 156/107; PULSE 109; RESP 18; TEMP 37.6; O2SAT 95; BMI 31.4
--- NOTE | 2022-08-10 21:44 | RAD_ITS ---
EXAM: XR RIGHT KNEE, 3 VIEWS CLINICAL INDICATION: fall/pain TECHNIQUE: Three views of the right knee. This report was created using [employer] report generation technology. COMPARISON: None. FINDINGS: BONES/JOINTS: Tricompartmental arthrosis, worse at the medial femorotibial compartment. No acute or healing fracture or malalignment. No significant joint effusion. No sclerotic or destructive changes observed. SOFT TISSUES: Unremarkable. No soft tissue swelling or gas. No radiopaque foreign body. VASCULATURE: Peripheral vascular disease. RAD/Knee 4 or More Views IMPRESSION: No acute or healing fracture or malalignment. Electronically Signed: Gino Giffrod MD at 0:14 EST ,
[2022-08-10 22:09] LABS: Absolute Lymphocyte Count 0.64 X10^3/uL (0.83-4.51); Absolute Neutrophil Count 3.8 X10^3/uL (2.0-7.7); Basophil# 0.01 X10^3/uL; Basophil% 0.2 % (0-1); Hematocrit 42.4 % (40-54); Hemoglobin 13.9 g/dL (13.0-16.5); Lymphocyte # 0.64 X10^3/ul (0.83-4.51); Lymphocyte % 12.3 % (19-41); Mean Corp Hgb Conc 32.8 g/dL (32-36); Mean Corpuscular Hgb 30.8 pg (27.0-32.0); Mean Corpuscular Volume 93.8 fL (80-94); Mean Platelet Vol. 9.6 fl (6.2-12.0); Monocyte% 13.4 % (0-10); NRBC Flagged by Analyzer 0 % (0-5); Neutrophil # 3.84 X10^3/uL (2.7-7.7); Neutrophil % 73.7 % (47-70); Platelet Count 224 K/mm3 (150-450); RBC Distribution Width CV 13.7 % (11.6-14.6); RBC Distribution Width SD 47.2 fl (35.1-43.9); Red Blood Count 4.52 M/mm3 (4.6-6.2); White Blood Count 5.2 K/mm3 (4.4-11.0)
[2022-08-10 22:22] LABS: Anion Gap 7 (5-15); BUN 30 mg/dL (7-18); Calcium,Total 8.5 mg/dL (8.5-10.1); Chloride 103 mmol/L (98-107); Creatinine, Serum 1.25 mg/dL (0.70-1.30); EST Glomerular Filtration Rate 60 mL/min (>60); Est Glom Filt Rate - Afr Amer 73 mL/min (>60); Estimated Creatinine Clearance 50.92 ml/min; Glucose 155 mg/dL (74-106); Potassium 3.8 mmol/L (3.5-5.1); Sodium Level 135 mmol/L (136-145)
[2022-08-10 22:28] VITALS: BP 144/91; PULSE 104; RESP 18; TEMP 38.1; O2SAT 91; O2SAT 92; O2SAT 93
--- NOTE | 2022-08-10 22:43 | EX.ED.DYSGE1 ---
HPI History of Present Illness Chief Complaint: General Illness Detail of Chief Complaint: Sore throat, cough, congestion Informant: patient Onset/Context/Timing Onset: Days (3 days) Narrative Narrative: Patient presents with 3-day history of sore throat with some cough and congestion. He has had some lightheadedness. He does report a fall 3 days ago injuring his right knee. He states he has had problems with that right knee in the past. He is able to ambulate. He has been taking Tylenol as well as Coricidin HBP. [facility] Medical History Arthritis Chronic back pain Closed head injury Debility Decreased hearing Easy bruising Frequent falls History of MRSA infection Hyperlipemia Hypertension Kidney stones Non-smoker Physical debility Sciatica Type 2 diabetes mellitus Uses wheelchair Wears glasses Home Medications atorvastatin 40 mg tablet 40 mg PO QHS CHOLESTEROL 11/07/18 [History Last Taken 11/21/21] lisinopril 5 mg tablet 5 mg PO DAILY blood pressure 04/25/19 [History Last Taken 11/22/21] metformin 500 mg tablet 500 mg PO BID diabetes 02/03/20 [History Last Taken 11/22/21] acetaminophen 500 mg tablet 1,000 mg PO Q6H PRN PRN Pain Score 1-3 #0 tabs 12/03/21 [Rx Last Taken Unknown] gabapentin 100 mg capsule 100 mg PO TIDCM 30 days #90 caps 12/03/21 [Rx Last Taken Unknown] tramadol 50 mg tablet 50 mg PO Q6H PRN PRN Pain Score 4-10 7 days #28 tabs 12/03/21 [Rx Last Taken Unknown] nirmatrelvir 300 mg (150 mg x2)-ritonavir 100 mg tablet,dose pack(EUA) (Paxlovid) See Rx Instructions PO .COMPLEX #30 tabs 08/11/22 [Rx Last Taken Unknown] Allergy/AdvReac Type Severity Reaction Status Date / Time oxycodone HCl [From Percocet] Allergy Intermediate Other Verified 08/10/22 21:02 Family History Father Mental disorder Heart disease Mother Heart disease High cholesterol Surgical History History of cervical spinal surgery History of kidney stones Social History household members: none Smoking Status: Never smoker alcohol intake: never substance use type: does not use what type of physical activity do you participate in: walking frequency: daily ROS ROS ED Constitutional Constitutional ED: Reports fever(s) and subjective Eyes Eyes: Denies blurry vision or change in vision ENT ENT ED: Reports sore throat Cardiovascular Cardiovascular: Denies chest pain Respiratory/Chest Respiratory/Chest: Reports cough; Denies sputum Gastrointestinal Gastrointestinal: Reports abdominal pain; Denies diarrhea, nausea or vomiting Genitourinary Genitourinary ED: Denies dysuria Musculoskeletal Musculoskeletal: Reports arthralgias and myalgias Neurologic Neurologic: Reports weakness Psychiatric Psychiatric: Denies anxiety or depression Allergic/Immunologic Allergic/Immunologic ED: Denies mouth swelling or tongue swelling EXAM Physical Exam Narrative Exam Narrative: Patient tolerating secretions well and speaks with a strong voice. Const Vital Signs: 08/10/22 20:59 08/10/22 22:28 08/10/22 22:28 Temperature 99.7 F H 100.6 F H Temperature Source Temporal Temporal Pulse Rate 109 H 104 H 104 H Respiratory Rate 18 18 18 Respiratory Pattern Blood Pressure 156/107 H 144/91 H 144/91 H Blood Pressure Mean 123 108 108 Pulse Ox 95 93 91 Oxygen Delivery Method Room Air Room Air Room Air 08/10/22 22:28 08/10/22 22:28 08/10/22 22:28 Temperature Temperature Source Pulse Rate Respiratory Rate Respiratory Pattern Normal Blood Pressure Blood Pressure Mean Pulse Ox 92 92 Oxygen Delivery Method Room Air Room Air Positive well nourished and well developed General Appearance ED: well developed HEENT Reports normocephalic, head/scalp atraumatic and moist mucous membranes HEENT Narrative: TMs are clear bilaterally. Posterior pharynx exam unremarkable Eyes PERRL and EOMs intact bilaterally Neck supple Chest Wall inspection of chest normal and palpation of chest normal Resp normal respiratory effort and clear to auscultation bilaterally Cardio regular rate and regular rhythm GI normal to inspection, nondistended, normoactive bowel sounds Palpation: soft Extremity normal to inspection Extremity Narrative: Mild tenderness to the right knee anteriorly. No abrasions or ecchymosis. Neuro oriented x3 Sensorium / Orientation: alert Psych mental status grossly normal Skin no rashes or lesions noted MDM MDM MDM Narrative Medical decision making narrative: Lab work obtained along with chest x-ray and right knee x-ray. Swabs for COVID, influenza, and strep obtained. Patient given a dose of steroid along with a small dose of IV Toradol. P.o. Tylenol was given. Lab Data Attestation: I reviewed the patient's lab results. Labs: Laboratory Results - last 24 hr 08/10/22 08/10/22 21:59 21:59 WBC 5.2 RBC 4.52 L Hgb 13.9 Hct 42.4 MCV 93.8 MCH 30.8 MCHC 32.8 RDW Std Deviation 47.2 H RDW Coeff of Javid 13.7 Plt Count 224 MPV 9.6 Immature Gran % (Auto) 0.400 Neut % (Auto) 73.7 H Lymph % (Auto) 12.3 L [place] % (Auto) 13.4 H Eos % (Auto) 0.0 Baso % (Auto) 0.2 Absolute Neuts (auto) 3.8 Absolute Lymphs (auto) 0.64 L Nucleated RBC % 0 Sodium 135 L Potassium 3.8 Chloride 103 Carbon Dioxide 25.0 Anion Gap 7 BUN 30 H Creatinine 1.25 Estim Creat Clear Calc 50.92 Est GFR (MDRD) Af Amer 73 Est GFR (MDRD) Non-Af 60 BUN/Creatinine Ratio 24.0 H Glucose 155 H Calcium 8.5 Radiography Chest X-Ray - ED: 1 View, Read by ED Physician, Chronic Changes and No Infiltrates Diagnostic Testing: Clinical Impression(s) from Imaging Studies Knee X-Ray 08/10/22 21:44 IMPRESSION: No acute or healing fracture or malalignment. Electronically Signed: Gino Gifford MD at 0:14 EST , Chest X-Ray 08/10/22 23:02 IMPRESSION: No acute findings in the chest. Electronically Signed: Patrick Bhatti MD at 23:43 EST , Treatment and Re-Evaluation Narrative: Chest x-ray per my interpretation reveals no focal infiltrate. Chronic changes appreciated. Radiology interpretation is reviewed. Right knee x-ray per my interpretation reveals arthritic chronic changes. No acute injury. CBC reveals normal white count and hemoglobin. Chemistry studies are unremarkable. Swab for strep and influenza is negative. Swab for COVID is positive. On repeat evaluation patient states his throat pain is essentially resolved. Test results are discussed with patient and daughter at bedside. He is in the window for Paxlovid treatment. I checked his home medications and he will hold his atorvastatin for the next 5 days but will be given a prescription for Paxlovid. Return instructions are given. Discharge Plan Triage Chief Complaint: General Illness ED Provider: Kiley Sarabia Dx/Rx/DC Orders Clinical Impression: COVID-19 Instructions: Coronavirus Disease 2019 (COVID-19): Overview, Coronavirus Disease 2019 (COVID-19): Caring for Yourself or Others Prescriptions: New Paxlovid (EUA) 300 mg (150 mg x 2)-100 mg tablets,dose pack See Rx Instructions .ROUTE .COMPLEX Qty: 30 0RF Rx Instructions: take TWO 150 mg tablets of nirmatrelvir with ONE 100 mg tablet of ritonavir twice daily for 5 days No Action atorvastatin 40 MG tablet 40 mg PO QHS lisinopril 5 MG tablet 5 mg PO DAILY metformin 500 MG tablet 500 mg PO BID acetaminophen 500 mg Tablet 1,000 mg PO Q6H PRN PRN (Reason: Pain Score 1-3) Qty: 0 0RF tramadol 50 mg Tablet 50 mg PO Q6H PRN PRN (Reason: Pain Score 4-10) 7 Days Qty: 28 0RF gabapentin 100 mg Capsule 100 mg PO TIDCM 30 Days Qty: 90 0RF Primary Care Provider: Mitch Mcwilliams Chi Referrals: Mitch Mcwilliams Chi, MD [Primary Care Provider] - 1-2 Weeks Activity Restrictions/Additional Instructions: While taking Paxlovid to treat your COVID, please hold your atorvastatin (your cholesterol medicine that you take at bedtime). You can resume this medication once the Paxlovid course is complete. Disposition Disposition: Home, Self Care
[2022-08-10] MEDS: Ketorolac 15 MG/ML Vial IV (22:55)
[2022-08-10] MEDS: Acetaminophen 325 MG Tablet 650 MG PO (22:55)
[2022-08-10] MEDS: MethylPREDNISolone 125 MG/2 ML Vial IV (22:55)
[2022-08-10] MEDS: 0.9% Normal Saline 1,000 ML 150 ML IV (22:56)
--- NOTE | 2022-08-10 23:02 | RAD_ITS ---
EXAM: XR CHEST, 1 VIEW CLINICAL INDICATION: sob TECHNIQUE: Frontal view of the chest. This report was created using [employer] report generation technology. COMPARISON: 12/10/2015 FINDINGS: LUNGS AND PLEURAL SPACES: Unremarkable. No consolidation or edema. No pneumothorax. No effusion. HEART: Unremarkable. Cardiac silhouette not enlarged. MEDIASTINUM: Central airways and mediastinal contour are unremarkable. BONES/JOINTS: Unremarkable. SOFT TISSUES: Unremarkable. UPPER ABDOMEN: There is elevation of the right hemidiaphragm. RAD/Chest 1 View (Portable) IMPRESSION: No acute findings in the chest. Electronically Signed: Patrick Bhatti MD at 23:43 EST ,
[2022-08-11 00:29] VITALS: BP 114/72; PULSE 100; RESP 16; O2SAT 93
== END 2022-08-11 00:34 | disposition home or self-care (01) ==
PROVIDERS: Emergency Provider Emergency Medicine; PCP Family Medicine Geriatric Medicine; Visit Provider Emergency Medicine
DX: U07.1 COVID-19 (principal); E11.9 Type 2 diabetes mellitus without complications; E78.5 Hyperlipidemia, unspecified; I10 Essential (primary) hypertension; R10.9 Unspecified abdominal pain
CPT/HCPCS: 71045; 73564; 80048; 85025; 87428; 87880; 96361; 96374; 96375; 99284; J7030; A4216

== ENCOUNTER → 2022-10-28 | Outpatient (CLI) | payer MEDICARE, OTHER, SELFPAY ==
[2022-10-28 12:36] LABS: Absolute Lymphocyte Count 1.67 X10^3/uL (0.83-4.51); Absolute Neutrophil Count 3.2 X10^3/uL (2.0-7.7); Basophil# 0.03 X10^3/uL; Basophil% 0.6 % (0-1); Eosinophil# 0.06 X10^3/uL; Eosinophils% 1.1 % (0-5); Hematocrit 41.7 % (40-54); Hemoglobin 13.8 g/dL (13.0-16.5); Lymphocyte # 1.67 X10^3/ul (0.83-4.51); Mean Corp Hgb Conc 33.1 g/dL (32-36); Mean Corpuscular Hgb 31.7 pg (27.0-32.0); Mean Corpuscular Volume 95.9 fL (80-94); Monocyte% 7.4 % (0-10); NRBC Flagged by Analyzer 0 % (0-5); Neutrophil % 59.3 % (47-70); Platelet Count 291 K/mm3 (150-450); RBC Distribution Width CV 13.5 % (11.6-14.6); RBC Distribution Width SD 48.3 fl (35.1-43.9); Red Blood Count 4.35 M/mm3 (4.6-6.2); White Blood Count 5.4 K/mm3 (4.4-11.0)
[2022-10-28 13:06] LABS: Vitamin D,25 Hydroxy 15.2 ng/mL
[2022-10-28 13:34] LABS: ALB/GLOB Ratio 1.2 RATIO (0.9-2.4); AST(SGOT) 15 U/L (15-37); Alanine Aminotransfer ALT/SGPT 19 U/L (16-61); Albumin, Serum 3.8 g/dL (3.2-5.0); Alkaline Phosphatase 81 U/L (45-117); Anion Gap 12 (5-15); BUN 26 mg/dL (7-18); BUN/Creat Ratio 21.1 RATIO (10-20); Calcium,Total 9.1 mg/dL (8.5-10.1); Chloride 107 mmol/L (98-107); Creatinine, Serum 1.23 mg/dL (0.70-1.30); EST Glomerular Filtration Rate 61 mL/min (>60); Est Glom Filt Rate - Afr Amer 74 mL/min (>60); Globulin 3.2 g/dL (2.2-4.2); Glucose 194 mg/dL (74-106); Sodium Level 141 mmol/L (136-145); Thyroid Stim Hormone (TSH) 1.04 uIU/mL (0.358-3.74)
== END | disposition home or self-care (01) ==
LOC: POLAB3 09:11
PROVIDERS: PCP Family Medicine Geriatric Medicine; Visit Provider Family Medicine Geriatric Medicine
DX: I10 Essential (primary) hypertension (principal); E11.65 Type 2 diabetes mellitus with hyperglycemia; E55.9 Vitamin D deficiency, unspecified
CPT/HCPCS: 36415; 80053; 82306; 84443; 85025

== ENCOUNTER → 2023-05-10 | Outpatient (CLI) | payer MEDICARE, OTHER, SELFPAY ==
[2023-05-10 11:34] LABS: Absolute Neutrophil Count 3.9 X10^3/uL (2.0-7.7); Basophil# 0.02 X10^3/uL; Basophil% 0.3 % (0-1); Eosinophil# 0.12 X10^3/uL; Hematocrit 41.9 % (40-54); Hemoglobin 13.4 g/dL (13.0-16.5); Lymphocyte % 27.8 % (19-41); Mean Corpuscular Hgb 31.4 pg (27.0-32.0); Mean Corpuscular Volume 98.1 fL (80-94); Mean Platelet Vol. 9.6 fl (6.2-12.0); Monocyte# 0.37 X10^3/uL; NRBC Flagged by Analyzer 0 % (0-5); Neutrophil # 3.88 X10^3/uL (2.7-7.7); Neutrophil % 63.4 % (47-70); Platelet Count 258 K/mm3 (150-450); RBC Distribution Width CV 12.7 % (11.6-14.6); RBC Distribution Width SD 45.3 fl (35.1-43.9); Red Blood Count 4.27 M/mm3 (4.6-6.2); White Blood Count 6.1 K/mm3 (4.4-11.0)
[2023-05-10 11:54] LABS: Vitamin D,25 Hydroxy 24.9 ng/mL
[2023-05-10 12:12] LABS: ALB/GLOB Ratio 1.2 RATIO (0.9-2.4); AST(SGOT) 11 U/L (15-37); Alanine Aminotransfer ALT/SGPT 19 U/L (16-61); Albumin, Serum 3.8 g/dL (3.2-5.0); Alkaline Phosphatase 84 U/L (45-117); Anion Gap 5 (5-15); BUN 26 mg/dL (7-18); BUN/Creat Ratio 22.6 RATIO (10-20); Calcium,Total 8.8 mg/dL (8.5-10.1); Chloride 110 mmol/L (98-107); Creatinine, Serum 1.15 mg/dL (0.70-1.30); EST Glomerular Filtration Rate 66 mL/min (>60); Est Glom Filt Rate - Afr Amer 80 mL/min (>60); Globulin 3.1 g/dL (2.2-4.2); Glucose 135 mg/dL (74-106); Potassium 4.3 mmol/L (3.5-5.1); Protein, Total 6.9 g/dL (6.4-8.2); Sodium Level 143 mmol/L (136-145); Thyroid Stim Hormone (TSH) 1.42 uIU/mL (0.358-3.74)
== END | disposition home or self-care (01) ==
LOC: POLAB3 10:27
PROVIDERS: PCP Family Medicine Geriatric Medicine; Visit Provider Family Medicine Geriatric Medicine
DX: I10 Essential (primary) hypertension (principal); E11.65 Type 2 diabetes mellitus with hyperglycemia; E55.9 Vitamin D deficiency, unspecified
CPT/HCPCS: 36415; 80053; 82306; 84443; 85025

== ENCOUNTER → 2023-07-11 | Outpatient (CLI) | payer MEDICARE, OTHER, SELFPAY ==
[2023-07-11 11:50] LABS: PSA,Total - Annual Screen 0.56 ng/mL (0.00-4.00)
== END | disposition home or self-care (01) ==
LOC: LAB 09:45
PROVIDERS: PCP Family Medicine Geriatric Medicine; Referring Provider Nurse Practitioner; Visit Provider Nurse Practitioner
DX: Z12.5 Encounter for screening for malignant neoplasm of prostate (principal)
CPT/HCPCS: 36415; 84153; G0103

== ENCOUNTER → 2023-11-10 | Outpatient (CLI) | payer MEDICARE, OTHER, SELFPAY ==
[2023-11-10 12:20] LABS: Absolute Neutrophil Count 3.4 X10^3/uL (2.0-7.7); Basophil# 0.03 X10^3/uL; Basophil% 0.5 % (0-1); Eosinophil# 0.12 X10^3/uL; Eosinophils% 2.1 % (0-5); Hematocrit 43.8 % (40-54); Hemoglobin 14.1 g/dL (13.0-16.5); Lymphocyte % 29.9 % (19-41); Mean Corp Hgb Conc 32.2 g/dL (32-36); Mean Corpuscular Hgb 31.5 pg (27.0-32.0); Mean Platelet Vol. 9.6 fl (6.2-12.0); Monocyte# 0.38 X10^3/uL; Monocyte% 6.7 % (0-10); NRBC Flagged by Analyzer 0 % (0-5); Neutrophil % 59.9 % (47-70); Platelet Count 317 K/mm3 (150-450); RBC Distribution Width CV 12.9 % (11.6-14.6); RBC Distribution Width SD 45.7 fl (35.1-43.9); Red Blood Count 4.47 M/mm3 (4.6-6.2); White Blood Count 5.7 K/mm3 (4.4-11.0)
[2023-11-10 12:38] LABS: Vitamin D,25 Hydroxy 9.7 ng/mL
[2023-11-10 12:42] LABS: ALB/GLOB Ratio 1.2 RATIO (0.9-2.4); AST(SGOT) 11 U/L (15-37); Alanine Aminotransfer ALT/SGPT 18 U/L (16-61); Alkaline Phosphatase 77 U/L (45-117); Anion Gap 4 (5-15); BUN 21 mg/dL (7-18); BUN/Creat Ratio 16.4 RATIO (10-20); Calcium,Total 9.2 mg/dL (8.5-10.1); Chloride 108 mmol/L (98-107); Creatinine, Serum 1.28 mg/dL (0.70-1.30); EST Glomerular Filtration Rate 58 mL/min (>60); Est Glom Filt Rate - Afr Amer 70 mL/min (>60); Globulin 3.2 g/dL (2.2-4.2); Glucose 150 mg/dL (74-106); Potassium 4.3 mmol/L (3.5-5.1); Protein, Total 7.2 g/dL (6.4-8.2); Sodium Level 140 mmol/L (136-145); Thyroid Stim Hormone (TSH) 1.23 uIU/mL (0.358-3.74)
== END | disposition home or self-care (01) ==
LOC: POLAB3 11:18
PROVIDERS: PCP Family Medicine Geriatric Medicine; Visit Provider Family Medicine Geriatric Medicine
DX: I10 Essential (primary) hypertension (principal); E11.65 Type 2 diabetes mellitus with hyperglycemia; E55.9 Vitamin D deficiency, unspecified
CPT/HCPCS: 36415; 80053; 82306; 84443; 85025

== ENCOUNTER → 2024-06-13 | Outpatient (CLI) | payer MEDICARE, OTHER, SELFPAY ==
[2024-06-13 10:16] LABS: Absolute Lymphocyte Count 2.57 X10^3/uL (0.83-4.51); Absolute Neutrophil Count 4.7 X10^3/uL (2.0-7.7); Basophil# 0.03 X10^3/uL; Basophil% 0.4 % (0-1); Eosinophil# 0.15 X10^3/uL; Eosinophils% 1.8 % (0-5); Hematocrit 44.2 % (40-54); Hemoglobin 14.9 g/dL (13.0-16.5); Lymphocyte # 2.57 X10^3/ul (0.83-4.51); Lymphocyte % 31.6 % (19-41); Mean Corp Hgb Conc 33.7 g/dL (32-36); Mean Corpuscular Volume 97.8 fL (80-94); Mean Platelet Vol. 9.4 fl (6.2-12.0); Monocyte# 0.63 X10^3/uL; Monocyte% 7.7 % (0-10); NRBC Flagged by Analyzer 0 % (0-5); Neutrophil # 4.65 X10^3/uL (2.7-7.7); Neutrophil % 57.3 % (47-70); Platelet Count 362 K/mm3 (150-450); RBC Distribution Width SD 46.6 fl (35.1-43.9); Red Blood Count 4.52 M/mm3 (4.6-6.2); White Blood Count 8.1 K/mm3 (4.4-11.0)
[2024-06-13 10:44] LABS: Vitamin D,25 Hydroxy 7.7 ng/mL
[2024-06-13 10:50] LABS: ALB/GLOB Ratio 1.3 RATIO (0.9-2.4); AST(SGOT) 11 U/L (15-37); Alanine Aminotransfer ALT/SGPT 15 U/L (16-61); Albumin, Serum 4.3 g/dL (3.2-5.0); Alkaline Phosphatase 73 U/L (45-117); Anion Gap 8 (5-15); BUN 27 mg/dL (7-18); BUN/Creat Ratio 22.5 RATIO (10-20); Calcium,Total 9.6 mg/dL (8.5-10.1); Chloride 108 mmol/L (98-107); EST Glomerular Filtration Rate 63 mL/min (>60); Est Glom Filt Rate - Afr Amer 76 mL/min (>60); Globulin 3.2 g/dL (2.2-4.2); Glucose 181 mg/dL (74-106); Potassium 3.8 mmol/L (3.5-5.1); Protein, Total 7.5 g/dL (6.4-8.2); Sodium Level 140 mmol/L (136-145)
== END | disposition home or self-care (01) ==
LOC: POLAB3 09:48
PROVIDERS: PCP Family Medicine Geriatric Medicine; Visit Provider Family Medicine Geriatric Medicine
DX: I10 Essential (primary) hypertension (principal); E11.65 Type 2 diabetes mellitus with hyperglycemia; E55.9 Vitamin D deficiency, unspecified
CPT/HCPCS: 36415; 80053; 82306; 84443; 85025

== ENCOUNTER 2024-06-25 16:50 | Emergency (ER) | payer MEDICARE, OTHER, SELFPAY ==
[2024-06-25 16:51] VITALS: BP 202/110; PULSE 89; RESP 18; TEMP 36.4; O2SAT 96
--- NOTE | 2024-06-25 17:15 | CT_ITS ---
EXAM: CT ABDOMEN AND PELVIS WITHOUT INTRAVENOUS CONTRAST CLINICAL INDICATION: Kidney Stone pain right flank TECHNIQUE: Helically acquired images were obtained of the abdomen and pelvis without intravenous contrast. This CT exam was performed using one or more of the following dose reduction techniques: automated exposure control, adjustment of the mA and/or kV according to patient size, and/or use of iterative reconstruction technique. COMPARISON: 12/23/2015 FINDINGS: LOWER THORAX: There is scarring in the lung bases. No cardiomegaly. No significant pericardial effusion. ABDOMEN: LIVER: Unremarkable. Homogeneous. GALLBLADDER AND BILE DUCTS: Unremarkable. No calcified gallstones. No gallbladder distention or wall edema. No intra- or extrahepatic biliary ductal dilation. PANCREAS: Unremarkable. No focal cystic mass. SPLEEN: Unremarkable. Normal size without focal cystic or solid mass. ADRENALS: Unremarkable. No nodules. KIDNEYS AND URETERS: There is right-sided hydronephrosis and hydroureter. There is a 6 mm stone in the distal right ureter. There are nonobstructing calyceal stones in both kidneys. Normal renal size and position. STOMACH AND BOWEL: Unremarkable. No stomach or bowel distention. No focal inflammatory change. PELVIS: APPENDIX: No evidence of acute appendicitis. BLADDER: Unremarkable. REPRODUCTIVE: Unremarkable as visualized. No mass. ABDOMEN and PELVIS: INTRAPERITONEAL SPACE: Unremarkable. No ascites or other fluid collection. No free air. BONES/JOINTS: There are severe degenerative changes in the right hip with joint space narrowing. No suspicious lytic or blastic abnormality. SOFT TISSUES: Unremarkable. No discrete abdominal or pelvic wall hernia. VASCULATURE: Unremarkable. Abdominal aorta is non-dilated. LYMPH NODES: Unremarkable. No enlarged lymph nodes. OTHER FINDINGS: There is a low-density mass in the right compatible with a cyst which is stable from the reference exam. No follow-up imaging is necessary. CT/Abdomen/Pelvis without Cont IMPRESSION: Obstruction of the right collecting system due to a 6 mm stone in the distal right ureter. There is right-sided hydronephrosis and hydroureter. There are bilateral nonobstructing calyceal stones. Electronically Signed: Patrick Bhatti MD at 19:02 EST ,
--- NOTE | 2024-06-25 17:15 | EDS_ITS ---
HPI HPI - GI History of Present Illness Chief Complaint: Flank Pain Informant: patient Narrative Narrative: 73-year-old male 2 hours with a sudden onset pain in his right flank that feels similar to prior kidney stones. Nausea but no vomiting. No hematuria or urinary difficulty. Has had surgery to have stones out in the past. No other abdominal surgeries. [facility] Medical History Wears glasses History of MRSA infection Uses wheelchair Easy bruising Non-smoker Physical debility Debility Closed head injury Frequent falls Sciatica Kidney stones Decreased hearing Hyperlipemia Hypertension Chronic back pain Arthritis Type 2 diabetes mellitus Home Medications ?Medication ?Instructions ?Recorded ?Last Taken ?Type atorvastatin 40 mg tablet 40 mg PO QHS CHOLESTEROL 11/07/18 11/21/21 History lisinopril 5 mg tablet 5 mg PO DAILY blood pressure 04/25/19 11/22/21 History metformin 500 mg tablet 500 mg PO BID diabetes 02/03/20 11/22/21 History acetaminophen 500 mg tablet 1,000 mg (2 x 500 mg) PO Q6H PRN 12/03/21 Unknown Rx PRN Pain Score 1-3 #0 tabs gabapentin 100 mg capsule 100 mg PO TIDCM 30 days #90 caps 12/03/21 Unknown Rx tramadol 50 mg tablet 50 mg PO Q6H PRN PRN Pain Score 12/03/21 Unknown Rx 4-10 7 days #28 tabs nirmatrelvir 300 mg (150 mg See Rx Instructions PO .COMPLEX 08/11/22 Unknown Rx x2)-ritonavir 100 mg tablet,dose #30 tabs pack (Paxlovid) hydrocodone-acetaminophen 5-325mg 1 tab PO Q6H PRN PRN Pain 3 days 06/25/24 Unknown Rx 5mg-325mg #12 TABLETS ondansetron 8 mg disintegrating 8 mg PO Q8H PRN nausea and 06/25/24 Unknown Rx tablet vomiting #20 tabs Allergy/AdvReac Type Severity Reaction Status Date / Time oxycodone HCl (From Percocet) Allergy Intermediate Other Verified 06/25/24 16:54 Family History Father Mental disorder Heart disease Mother Heart disease High cholesterol Surgical History History of cervical spinal surgery History of kidney stones Social History household members: none Smoking Status: Never smoker alcohol intake: never substance use type: does not use what type of physical activity do you participate in: walking frequency: daily ROS ROS ED Constitutional Constitutional ED: Denies chills or fever(s) Eyes Eyes: Denies change in vision or diplopia ENT ENT ED: Denies rhinorrhea or sore throat Cardiovascular Cardiovascular: Denies chest pain or palpitations Respiratory/Chest Respiratory/Chest: Denies cough or dyspnea Gastrointestinal Gastrointestinal: Reports abdominal pain and nausea; Denies diarrhea or vomiting Genitourinary Genitourinary ED: Reports flank pain; Denies dysuria or hematuria Musculoskeletal Musculoskeletal: Reports back pain; Denies neck pain Integumentary Denies abscess or rash Neurologic Neurologic: Denies headache(s), paresthesias or weakness Psychiatric Psychiatric: Denies anxiety or suicidal thoughts EXAM Physical Exam Const Vital Signs: 06/25/24 16:51 06/25/24 18:51 06/25/24 20:00 Temperature 97.5 F L Temperature Source Temporal Pulse Rate 89 95 85 Respiratory Rate 18 18 18 Blood Pressure 202/110 H 176/104 H Blood Pressure Mean 140 128 Pulse Ox 96 93 94 Oxygen Delivery Method Room Air Room Air Positive well nourished and well developed General Appearance ED: well developed and NAD HEENT Reports moist mucous membranes normocephalic and atraumatic Eyes PERRL and EOMs intact bilaterally Neck full ROM and supple Resp normal respiratory effort and clear to auscultation bilaterally Cardio regular rate, regular rhythm and no murmurs GI non-distended GI Narrative: Mild diffuse right-sided abdominal tenderness no guarding or rebound Auscultation: normoactive bowel sounds Palpation: soft Back/Spine General Back: CVA tenderness right and other FROM Extremity normal to inspection General Extremety ED: Negative for edema, pulses abnormal or tenderness General Extremity: Negative for edema or pulses abnormal Neuro oriented x3, CN's II-XII intact bilaterally and no sensory deficits noted Sensorium / Orientation: awake and alert Motor Exam: strength 5/5 throughout Skin no rashes or lesions noted and no wounds MDM MDM MDM Narrative Medical decision making narrative: While patient was given symptom treatment, urinalysis was obtained showing no signs of infection but positive for blood, and a CT. I reviewed the images and report which I agree with, it shows a mid ureteral 6 mm obstructing stone on the right, with resulting hydroureter and hydronephrosis. There are also other calyceal stones that were nonobstructing. He is doing well in between pain medication treatments. I offered admission because he needed a couple doses of pain medications, he declines and prefers to be discharged home with I am okay with. I reviewed some old labs that were from about 1.5 weeks ago, his renal function is good I do not think we have to repeat that since he is only had pain for couple hours. Advised to follow-up with urology if he does not pass a stone home given urinary strainers to go home with. Lab Data Attestation: I reviewed the patient's lab results. Labs: Laboratory Results - last 24 hr 06/25/24 20:45 Urine Color Brown Urine Clarity Cloudy Urine pH 6.0 Ur Specific [place] 1.015 Urine Protein 100 H Urine Glucose (UA) 250 H Urine Ketones Negative Urine Occult Blood 250 H Urine Nitrite Negative Urine Bilirubin Negative Urine Urobilinogen Normal Ur Leukocyte Esterase 25 H Urine RBC 50-100 SEEN Urine WBC 0-5 SEEN Ur Squamous Epith Cells 0-5 SEEN Ur Renal Epithelial Cell 0-5 SEEN Urine Bacteria 1+ Urine Mucus 2+ Radiography Diagnostic Testing: Clinical Impression(s) from Imaging Studies Abdomen/Pelvis CT 06/25/24 17:15 IMPRESSION: Obstruction of the right collecting system due to a 6 mm stone in the distal right ureter. There is right-sided hydronephrosis and hydroureter. There are bilateral nonobstructing calyceal stones. Electronically Signed: Patrick Bhatti MD at 19:02 EST , Discharge Plan Triage Chief Complaint: Flank Pain ED Provider: Darrin Mata Dx/Rx/DC Orders Clinical Impression: Renal colic on right side, Ureterolithiasis Instructions: ED Kidney Stone with Pain Prescriptions: New hydrocodone-acetaminophen 5-325 mg tablet 1 tab PO Q6H PRN PRN (Reason: Pain) 3 Days Qty: 12 0RF ondansetron 8 mg tablet,disintegrating 8 mg PO Q8H PRN (Reason: nausea and vomiting) Qty: 20 0RF No Action atorvastatin 40 MG tablet 40 mg PO QHS lisinopril 5 MG tablet 5 mg PO DAILY metformin 500 MG tablet 500 mg PO BID acetaminophen 500 mg Tablet 1,000 mg PO Q6H PRN PRN (Reason: Pain Score 1-3) Qty: 0 0RF tramadol 50 mg Tablet 50 mg PO Q6H PRN PRN (Reason: Pain Score 4-10) 7 Days Qty: 28 0RF gabapentin 100 mg Capsule 100 mg PO TIDCM 30 Days Qty: 90 0RF Paxlovid 300 mg (150 mg x 2)-100 mg tablets,dose pack See Rx Instructions .ROUTE .COMPLEX Qty: 30 0RF Rx Instructions: take TWO 150 mg tablets of nirmatrelvir with ONE 100 mg tablet of ritonavir twice daily for 5 days Primary Care Provider: Mitch Mcwilliams Chi Referrals: Jose Manuel Pham MD [Med Staff - Active Staff] - 1 Week if not improving Mitch Mcwilliams Chi, MD [Primary Care Provider] - Print Language: [place] Disposition Disposition: Home, Self Care
[2024-06-25] MEDS: Morphine 2 MG/ML Syringe IV ×2 (17:31→21:31)
[2024-06-25] MEDS: Ondansetron 4 MG/2 ML Vial IV (17:31)
[2024-06-25] MEDS: Ketorolac 15 MG/ML Vial 10 MG IV (18:50)
[2024-06-25 18:51] VITALS: PULSE 95; RESP 18; O2SAT 93
--- NOTE | 2024-06-25 19:40 | CM.ED ---
Social Work Reason for visit: Advanced Directive verification Patient stated that he has both HCPOA and Living Will completed. Patient notified that [facility] does not have documents on file. Asked patient to bring in documents when able. Padmini Mcdowell MSW, TELESALES REPRESENTATIVE
[2024-06-25 20:00] VITALS: BP 176/104; PULSE 85; RESP 18; O2SAT 94
[2024-06-25 20:05] VITALS: BMI 34.3
[2024-06-25 20:55] LABS: Color, Urine Brown (Yellow); Glucose, Dipstick 250 mg/dl (Normal); Ketone-Dipstick Negative (Negative); Leukocyte Esterase-Dipstick 25 /ul (Negative); Nitrite-Dipstick Negative (Negative); Occult Blood-Urine 250 /ul (Negative); Protein-Dipstick 100 mg/dl (Negative); Specific Gravity, Urine 1.015 (1.002-1.030); Urine Bilirubin Dipstick Negative (Negative); Urine Clarity Cloudy (Clear); Urine Urobilinogen Normal (Normal)
[2024-06-25 21:03] LABS: Bacteria 1+ /hpf (None Seen); Mucous, Urine 2+ /hpf (<or=2+); Red Blood Cells-Urine 50-100 SEEN /hpf (0-5); Renal Epithelial Cells 0-5 SEEN /hpf (0-5); Squamous Epithelial Cells - UA 0-5 SEEN /hpf (0-5); White Blood Cells 0-5 SEEN /hpf (0-5)
[2024-06-25] MEDS: HYDROcodone Bitartrate/Apap 5/325 Tablet PO (21:31)
[2024-06-25 21:35] VITALS: BP 161/95; PULSE 90; RESP 18; TEMP 36.9; O2SAT 94
== END 2024-06-25 21:41 | disposition home or self-care (01) ==
PROVIDERS: Emergency Provider Emergency Medicine; PCP Family Medicine Geriatric Medicine; Visit Provider Emergency Medicine
DX: N13.2 Hydronephrosis with renal and ureteral calculous obstruction (principal); E11.9 Type 2 diabetes mellitus without complications; I10 Essential (primary) hypertension; N13.4 Hydroureter; N23 Unspecified renal colic; E78.5 Hyperlipidemia, unspecified; Z86.14 Personal history of Methicillin resistant Staphylococcus aureus infection; R29.6 Repeated falls; Z87.442 Personal history of urinary calculi
CPT/HCPCS: 74176; 81001; 96374; 96375; 96376; 99282; A4216; J2405

== ENCOUNTER → 2024-07-19 | Outpatient (CLI) | payer MEDICARE, OTHER, SELFPAY ==
--- NOTE | 2024-07-19 06:34 | MRI_ITS ---
EXAM: MR HEAD WITHOUT INTRAVENOUS CONTRAST CLINICAL INDICATION: Bilateral leg weakness. TECHNIQUE: Multiplanar and multisequence MR images of the brain were obtained without intravenous contrast. COMPARISON: CT head without contrast 11/22/2021. FINDINGS: BRAIN AND EXTRA-AXIAL SPACES: Unremarkable. No intra- or extra-axial hemorrhage. Posterior fossa structures are unremarkable. Basal cisterns are patent. No diffusion restriction to suspect acute or subacute ischemic infarct. No remote ischemic infarct. No midline shift and no mass effects. No communicating or noncommunicating hydrocephalus. SELLA: Unremarkable. Normal sella turcica, pituitary gland, infundibular stalk, optic chiasm and hypothalamus. AUDITORY SYSTEM: Unremarkable. The internal auditory canals are patent. BONES/JOINTS: Unremarkable. No discrete lytic or blastic abnormalities. SINUSES: Unremarkable as visualized. Clear. MASTOID AIR CELLS: Unremarkable as visualized. Clear. ORBITS: Unremarkable as visualized. Both globes, extraocular muscles, optic nerves and retrobulbar fat appear unremarkable. VASCULATURE: Unremarkable as visualized. Normal flow voids in the major intracranial circulation. MRI/Brain without Contrast IMPRESSION: Negative MRI brain without intravenous contrast. Electronically Signed: Morgan Horn MD at 9:49 EST ,
--- NOTE | 2024-07-19 06:34 | MRI_ITS ---
STUDY: MRI THORACIC SPINE WITHOUT CONTRAST REASON FOR EXAM: Male, 73 years old. BILAT LEG WEAKNESS TECHNIQUE: Standardized fat and water weighted pulse sequences were obtained in the sagittal and axial planes. COMPARISON: None. FINDINGS: Normal kyphosis of the thoracic spine. There is no substantial scoliosis. T1-2, T2-3, T3-4, T4-5, T5-6, T6-7, T7-8, T8-9, T9-10, T10-11, T11-12: Mild old compression fractures involving T7, T8, T10, T11 and T12 vertebral bodies. Multiple midline ventral extradural defect due to posterior bulging annulus at T1-T2, T2-T3, T3-4, T7-T8, T9-T10 and T10-T11 disc space levels. Normal central canal and bilateral intervertebral neuroforamina. Normal visualized thoracic cord. Normal conus medullaris that terminates at the T12-L1 disc space level. The soft tissue structures are unremarkable. MRI/Spine Thoracic (Routine) IMPRESSION: 1. No MRI evidence of thoracic extruded disc fragment or spinal stenosis. 2. Normal thoracic spinal cord. 3. No MRI evidence of recent fractures of the thoracic spine. 4. Multiple mild old compression fractures involving T7, T8, T10, T11 and T12 vertebral bodies. Electronically Signed: Morgan Horn MD at 10:[address] [facility] ,
--- NOTE | 2024-07-19 06:34 | MRI_ITS ---
STUDY: MRI LUMBAR SPINE WITHOUT CONTRAST REASON FOR EXAM: Male, 73 years old. BILAT LEG WEAKNESS TECHNIQUE: Standardized fat and water weighted pulse sequences were obtained in the sagittal and axial planes. Noncontrast images obtained. Contrast: No contrast administered COMPARISON: No previous for comparison, however correlation is made to plain film examination of 11/12/2021, and CT of abdomen and pelvis on 06/25/2024 for correlation with the lumbar spine. FINDINGS: Vertebral bodies and alignment. 1. Vertebral body height is maintained. There is transitional anatomy with partial lumbarization of S1 with rudimentary disc at the S1-S2 level. 2. Multilevel disc changes are present however no evidence of marrow edema or destructive marrow replacement processes.. 3. Paraspinous soft tissue planes have normal appearance. Normal appearance of the muscular fascial planes of the erector spinae. 4. Normal appearance of the sacrum and sacroiliac joints. Intervertebral disks levels. T12-L1: Disc desiccation, minimal broad-based disc bulge and minimal retrolisthesis without evidence of disc herniation or canal stenosis. Endplate: No focal endplate marrow changes or endplate deformity. L1-2: Disc desiccation, minimal LEFT posterior lateral disc bulge and osteophyte complex without evidence of canal stenosis. Mild narrowing of the LEFT lateral recess without nerve root impingement. Neural foramina are widely patent. Endplate: No focal endplate marrow changes or endplate deformity. L2-3: Disc desiccation, facet hypertrophic changes and ligamentum flavum hypertrophy with broad-based concentric disc bulge/borderline protrusion with deformity the anterior epidural space, central thecal sac is narrowed to 7 mm. There is compression of lateral recesses bilaterally. Mild posterior epidural lipomatosis. There is narrowing of neural foramina bilaterally due to concentric disc bulge osteophyte and facet hypertrophic changes. Endplate: Mild endplate deformity without gilberto Modic changes. L3-4: Disc desiccation, mild grade 1 anterolisthesis. Unroofed disc material, and facet and ligamentum flavum hypertrophic changes contribute to narrowing of the central thecal sac. Posterior epidural lipomatosis also noted. Central thecal sac is narrowed to approximately 5 mm, mild compression of lateral recesses bilaterally without gilberto nerve root impingement. There however is bilateral foraminal stenosis. Endplate: No focal endplate marrow changes or endplate deformity. L4-5: Disc desiccation, loss disc height, minimal grade 1 anterolisthesis. Unroofed disc material present with broad-based disc bulge, facet and ligamentum flavum hypertrophic changes are present. No central canal stenosis. Crowding of nerve roots lateral recesses and bilateral foraminal stenosis greater on the RIGHT than LEFT. Potential nerve root impingement within the RIGHT neural foramen Endplate: Subtle endplate deformity and minimal Modic type II fatty endplate changes. L5-S1: Disc desiccation, broad-based posterior disc protrusion osteophyte complex with deformity the anterior epidural space and compression of lateral recesses including the S1 nerve roots bilaterally. Additional narrowing of neural foramina greater on the LEFT than RIGHT with potential LEFT L5 nerve root impingement within the LEFT. Facet and ligamentum flavum hypertrophic. Endplate: No focal endplate marrow changes or endplate deformity. Spinal cord: Normal appearance of the spinal cord and conus. Conus is located at L1. Cauda equina has normal appearance. No evidence of cord compression or edema. No intramedullary signal abnormality noted. Paraspinous soft tissues: Normal visualized paraspinous soft tissue structures. MRI/Spine Lumbar (Routine) IMPRESSION: 1. Transitional anatomy with partial lumbarization of S1. In anticipation of procedural or interventional procedures, close correlation with lumbar segmentation is recommended. 2. Grade 1 anterolisthesis at multiple levels including L3-4, and L4-5. There is moderate narrowing of the thecal sac at L2-3 and at L3-4 without gilberto nerve root impingement. 3. Moderate to extensive multilevel foraminal stenosis with potential nerve root impingement. 4. No radiographically significant Modic endplate edema. 5. Normal appearance of visualized spinal cord and conus. Electronically Signed: Horacio Oneill MD at 17:35 EST ,
--- NOTE | 2024-07-19 06:34 | MRI_ITS ---
STUDY: MRI CERVICAL SPINE REASON FOR EXAM: Male, 73 years old. BILAT LEG WEAKNESS TECHNIQUE: MRI examination of the cervical spine obtained with standard protocol including multiplanar multiecho Noncontrast imaging. Contrast: No contrast administered COMPARISON: Previous CT examination of the cervical spine dated 07/16/2019 is not currently available for correlation.. FINDINGS: Vertebral bodies and alignment: 1. Vertebral body height is maintained however there is significant reversal cervical lordosis. There are postoperative changes including pedicle screw and posterior fixation from C3 to approximately C6. No evidence of fracture or hardware failure. Laminectomy defects are also present. 2. There is chronic canal stenosis at the level of C1 due to posterior thickening of the ligamentum flavum and the posterior atlantoaxial occipital ligament/membrane. AP dimension on canal estimated at 7 mm with mild kinking of the cord without cord edema. 3. Prevertebral soft tissue planes have normal appearance. Normal appearance the odontoid process and alignment of the craniocervical junction. 4. Normal appearance the posterior muscular fascial planes of the cervical spine, and the posterior ligamentous support structure the cervical spine is intact. Intervertebral disc levels: C2-3: Minimal disc bulge and osteophyte formation without disc herniation or canal stenosis. Mild bilateral foraminal narrowing greater on the RIGHT than LEFT due to uncovertebral joint hypertrophic changes. No focal endplate Modic changes. C3-4: Disc desiccation, subtle grade 1 anterolisthesis of C3 on C4. No evidence of disc herniation or canal stenosis. Bilateral foraminal narrowing greater on the RIGHT than LEFT due to uncovertebral joint and facet hypertrophic changes. Nerve root impingement in the RIGHT neural foramen suspected. No significant endplate changes. C4-5: Postoperative changes of pedicle screw posterior fixation laminectomy defect. There is loss of disc height at, broad-based osteophyte present without disc herniation or canal stenosis. Bilateral foraminal narrowing contributed by facet and uncovertebral joint changes. No significant Modic changes. C5-6: Loss of disc height, broad-based osteophyte, no disc herniation or canal stenosis. Postoperative changes pedicle screw posterior fixation laminectomy defects. Bilateral foraminal narrowing noted. No significant Modic changes. C6-7: Loss of disc height, broad-based posterior osteophyte, no disc herniation or canal stenosis. Pedicle screw posterior fixation laminectomy defects noted. Bilateral foraminal narrowing is present due to uncovertebral joint and facet changes. No Modic changes. C7-T1: Disc desiccation, broad-based posterior disc bulge and osteophyte complex, no disc herniation or canal stenosis. Bilateral foraminal narrowing contributed by uncovertebral joint and facet changes. Mild Modic type II fatty marrow changes and mild deformity of the endplates. Spinal CORD: There is normal appearance the spinal cord. No intramedullary signal abnormality, masses or syrinx. Normal appearance of the cervical medullary junction. No evidence cord compression. MRI/Spine Cervical (Routine) IMPRESSION: 1. Multilevel postoperative changes with pedicle screw posterior fixation laminectomy defects extending from C3 to C6. There is reversal cervical lordosis. 2. No evidence of fracture hardware failure or destructive marrow replacement processes. 3. Incidental note of moderate canal narrowing at the C1 level contributed by hypertrophic changes and thickening of the ligamentum flavum and the posterior atlantooccipital membrane. There is cord displacement without cord edema or compression. 4. No disc herniation or canal stenosis throughout the remaining cervical canal. 5. Multilevel foraminal stenosis contributed by chronic uncovertebral joint and facet hypertrophic changes as detailed. 6. No acutely acquired canal stenosis. No acute cord compression or cord edema. Electronically Signed: Horacio Oneill MD at 17:08 EST ,
[2024-07-19 06:55] LABS: PSA,Total - Annual Screen 0.51 ng/mL (0.00-4.00)
== END | disposition home or self-care (01) ==
PROVIDERS: PCP Family Medicine Geriatric Medicine; Referring Provider Family Medicine Geriatric Medicine; Visit Provider Family Medicine Geriatric Medicine
DX: Z12.5 Encounter for screening for malignant neoplasm of prostate (principal); R29.898 Other symptoms and signs involving the musculoskeletal system
CPT/HCPCS: 36415; 70551; 72141; 72146; 72148; 84153; G0103

== ENCOUNTER 2024-09-23 05:44 | Inpatient (IN) | payer MEDICARE, OTHER, SELFPAY ==
[2024-09-23] VITALS (11 sets, daily range): BP systolic 135–178; BP diastolic 77–111; PULSE 71–126; RESP 15–20; TEMP 36.3–37.2; O2SAT 89–100; BMI 32.3; BMI 32.1
--- NOTE | 2024-09-23 05:58 | CT_ITS ---
PROCEDURE: Noncontrast CT of the abdomen/pelvis. REASON FOR EXAM: Left flank pain TECHNIQUE: Contiguous unenhanced axial CT images were obtained through the abdomen/pelvis. Sagittal and coronal reformats were created. COMPARISON: CT abdomen/pelvis 06/25/2024 FINDINGS: Bones are osteopenic with moderately extensive multilevel degenerative disc and facet disease in the spine. Evaluation of the solid organs and vascular structures is limited due to lack of intravenous contrast. Severe degenerative change right hip joint, to a mild degree on the left. Heart is not enlarged. No sizable pericardial effusion. Moderate coronary artery calcifications. Mild areas of scarring or subsegmental atelectasis in the lower lungs, greatest on the right. Abdominal aorta normal in caliber. No abdominal/pelvic adenopathy or ascites. Small fat containing inguinal hernias, greatest on the left. No large abdominal wall defect. Patchy wall thickening of the stomach may be due to lack of distention versus peristalsis. There may be a few tiny layering gallstones near the gallbladder neck. No secondary findings of acute cholecystitis. The liver, adrenal glands, spleen, and pancreas show no specific abnormality. No abnormally dilated bowel segments or free intraperitoneal air. Scattered patchy wall thickening of the colon may be due to lack of distention versus peristalsis or mild chronic diverticulosis. No acute diverticulitis. Normal appendix. There are bilateral nonobstructing renal calculi. A partially peripherally calcified exophytic probable cyst lateral mid right kidney measuring up to 5.6 cm is not significantly changed. Obstructive uropathy and mid right ureteral calculus present on the prior study are not present on the current examination. There is mild dilation of the left renal collecting system and proximal left ureter down to a 6 mm obstructing proximal left ureteral calculus image 106 of the axial images. There is some new inflammatory change in the lower left abdomen/left hemipelvis. [id number] right hip joint effusion. CT/Abdomen/Pelvis without Cont IMPRESSION: Bilateral nonobstructing renal calculi. There is an obstructing 6 mm calculus in the proximal left ureter causing mild left hydronephrosis. Right obstructive uropathy and obstructing right ureteral calc ulus present on the prior study are not present on the current examination. No bowel obstruction or perforation. Normal appendix. Small fat containing inguinal hernias. Moderate coronary artery calcifications. Similar-appearing partially calcified 5.6 cm exophytic cyst lateral mid right k [place]. Severe degenerative change of the right hip joint. Small to moderate right hip joint effusion. One or more dose reduction techniques were used (e.g., Automated exposure contr ol, adjustment of the mA and/or kV according to patient size, use of iterative reconstruction technique). Reading [facility]
[2024-09-23] MEDS: Ondansetron 4 MG/2 ML Vial IV (06:15)
[2024-09-23] MEDS: 0.9% Normal Saline (1000mL) 1,000 ML 999 ML IV (06:15)
[2024-09-23] MEDS: Morphine 4 MG/ML Syringe IV (06:15)
[2024-09-23 06:22] LABS: Basophil# 0.01 X10^3/uL; Basophil% 0.1 % (0-1); Eosinophil# 0.01 X10^3/uL; Eosinophils% 0.1 % (0-5); Hematocrit 40.8 % (40-54); Hemoglobin 13.4 g/dL (13.0-16.5); Lymphocyte % 5.6 % (19-41); Mean Corp Hgb Conc 32.8 g/dL (32-36); Mean Corpuscular Hgb 32.1 pg (27.0-32.0); Mean Corpuscular Volume 97.6 fL (80-94); Mean Platelet Vol. 9.4 fl (6.2-12.0); Monocyte# 1.27 X10^3/uL; Monocyte% 8.9 % (0-10); NRBC Flagged by Analyzer 0 % (0-5); Neutrophil # 12.01 X10^3/uL (2.7-7.7); Neutrophil % 83.8 % (47-70); Platelet Count 302 K/mm3 (150-450); RBC Distribution Width CV 13.2 % (11.6-14.6); RBC Distribution Width SD 46.8 fl (35.1-43.9); Red Blood Count 4.18 M/mm3 (4.6-6.2); White Blood Count 14.3 K/mm3 (4.4-11.0)
[2024-09-23 06:37] LABS: Anion Gap 10 (5-15); BUN 45 mg/dL (7-18); BUN/Creat Ratio 18.1 RATIO (10-20); Calcium,Total 9.2 mg/dL (8.5-10.1); Chloride 108 mmol/L (98-107); Creatinine, Serum 2.49 mg/dL (0.70-1.30); EST Glomerular Filtration Rate 27 mL/min (>60); Est Glom Filt Rate - Afr Amer 33 mL/min (>60); Estimated Creatinine Clearance 29.32 ml/min; Glucose 233 mg/dL (74-106); Potassium 4.3 mmol/L (3.5-5.1); Sodium Level 137 mmol/L (136-145)
--- NOTE | 2024-09-23 07:10 | EDS_ITS ---
HPI History of Present Illness Chief Complaint: Flank Pain Informant: patient and family Narrative Narrative: Patient is a 74-year-old male with past medical history of hypertension hyperlipidemia diabetes and previous kidney stones. He was seen in June 2024 and found to have an impacted right sided kidney stone with reportedly multiple stones in each kidney at that time. He states that he was able to be discharged home and did well. However in the last 2 to 3 days he has developed a left-sided abdominal pain with nausea that has not resolved with time and [id number] medications. He states his symptoms feel similar nature to his previous kidney stone and secondary to this comes in for evaluation [facility] Medical History Wears glasses History of MRSA infection Uses wheelchair Easy bruising Non-smoker Physical debility Debility Closed head injury Frequent falls Sciatica Kidney stones Decreased hearing Hyperlipemia Hypertension Chronic back pain Arthritis Type 2 diabetes mellitus Home Medications ?Medication ?Instructions ?Recorded ?Last Taken ?Type atorvastatin 40 mg tablet 40 mg PO QHS CHOLESTEROL 09/2611/21/21 History lisinopril 5 mg tablet 5 mg PO DAILY blood pressure 04/25/19 11/22/21 History metformin 500 mg tablet 500 mg PO BID diabetes 02/0211/22/21 History acetaminophen 500 mg tablet 1,000 mg (2 x 500 mg) PO Q 6H PRN 12/03/21 Unknown Rx PRN Pain Score 1-3 #0 tabs gabapentin 100 mg capsule 100 mg PO TIDCM 30 days #90 caps 12/03/21 Unknown Rx Allergy/AdvReac Type Severity Reaction Status Date / Time oxycodone HCl (From Percocet) Allergy Intermediate Other Verified 06/25/24 16:54 Family History Father Mental disorder Heart disease Mother Heart disease High cholesterol Surgical History History of cervical spinal surgery History of kidney stones Social History household members: none Smoking Status: Never smoker alcohol intake: never substance use type: does not use what type of physical activity do you participate in: walking frequency: daily ROS ROS ED Constitutional Constitutional ED: Denies chills or fever(s) ENT ENT ED: Denies sore throat Cardiovascular Cardiovascular: Denies chest pain Respiratory/Chest Respiratory/Chest: Denies cough or dyspnea Gastrointestinal Gastrointestinal: Reports abdominal pain and nausea; Denies diarrhea or vomiting Genitourinary Genitourinary ED: Denies dysuria Musculoskeletal Musculoskeletal: Reports back pain Integumentary Reports Abrasions Neurologic Neurologic: Denies headache(s) Hematologic/Lymphatic Hematologic/Lymphatic: Denies easy bleeding or easy bruising EXAM Physical Exam Const Vital Signs: 09/23/24 05:45 09/23/24 05:47 Temperature 98.6 F Temperature Source Oral Pulse Rate 126 H Respiratory Rate 18 Blood Pressure 160/91 H 178/111 H Blood Pressure Mean 114 133 Pulse Ox 94 Oxygen Delivery Method Room Air Positive well nourished and well developed General Appearance ED: well developed HEENT Reports dry mucous membranes HEENT Narrative: Mucous membranes are dry and tacky without secondary findings to suggest infection or airway compromise Mouth ED: Yes dry mucous membranes Mouth: dry mucous membranes Eyes PERRL and EOMs intact bilaterally General Eye ED: Negative for scleral icterus Neck supple Resp normal respiratory effort and clear to auscultation bilaterally Cardio regular rhythm Rate: tachycardic and other Other Details: Tachycardic rate with regular rhythm Radial and carotid pulses are equal and symmetric GI non-distended and no masses GI Narrative: Abdomen is soft and nondistended with normal active bowel sounds. There is pain on palpation along the left mid to lower abdomen without voluntary guarding or rigidity. No pulsatile mass or fluid wave Auscultation: normoactive bowel sounds Palpation: soft Back/Spine Back/Spine Narrative: Mild left CVA pain noted Extremity normal to inspection Neuro oriented x3, CN's II-XII intact bilaterally and no sensory deficits noted Sensorium / Orientation: alert Motor Exam: strength 5/5 throughout Psych mental status grossly normal Skin Skin Narrative: Patient has 2 areas of skin breakdown along the right and left gluteal cleft most consistent with a grade 2 pressure sores. No surrounding soft tissue changes to suggest infection. MDM MDM MDM Narrative Medical decision making narrative: Patient presented to the ER hypertensive and tachycardic but has a past history of hypertension and the tachycardia could be secondary to his pain otherwise he is afebrile and in no acute respiratory distress. History and exam is consistent/concerning for kidney stone although patient may have UTI or pyelonephritis or acute kidney injury. Secondary to this basic blood work was obtained along with a noncontrast CT scan. Patient's white count is slightly elevated at 14.3 and there is left shift with neutrophil count elevated at 12. He also has acute kidney injury with his creatinine increasing from a value of 1.2 in June 2024 to a value of 2.[address] scan did con firm a large 6 mm mid ureteral stone with obstruction which is the cause of his BERNARD and left-sided abdominal/flank pain. With the bump to his white count there is high likelihood there is secondary UTI with this and therefore he will be started on Rocephin and when a urine sample is obtained it will be sent for culture. Based on his BERNARD and concern for infection I do not feel it is safe for him to be discharged home and therefore I discussed the case with his urologist Dr. Pham. He states he is not technically on-call today but agrees that with the obstructive nephropathy and BERNARD that he should be kept in the hospital. He recommends admission to the medical service for continued pain control and IV hydration infection control and states he will see the patient in consult on Tuesday morning. Therefore medicine was contacted and they do agree to accept the patient at this time and therefore he be admitted to their service for continued care History & Record Review Discussion w/independent historian: Patient and Family Lab Data Attestation: I reviewed the patient's lab results. Labs: Laboratory Results - last 24 hr 09/23/24 06:03 WBC 14.3 H RBC 4.18 L Hgb 13.4 Hct 40.8 MCV 97.6 H MCH 32.1 H MCHC 32.8 RDW Std Deviation 46.8 H RDW Coeff of Javid 13.2 Plt Count 302 MPV 9.4 Immature Gran % (Auto) 1.500 H Neut % (Auto) 83.8 H Lymph % (Auto) 5.6 L [place] % (Auto) 8.9 Eos % (Auto) 0.1 Baso % (Auto) 0.1 Absolute Neuts (auto) 12.0 H Absolute Lymphs (auto) 0.80 L Nucleated RBC % 0 Sodium 137 Potassium 4.3 Chloride 108 H Carbon Dioxide 19.0 L Anion Gap 10 BUN 45 H Creatinine 2.49 H Estim Creat Clear Calc 29.32 Est GFR (MDRD) Af Amer 33 L Est GFR (MDRD) Non-Af 27 L BUN/Creatinine Ratio 18.1 Glucose 233 H Calcium 9.2 Radiography Diagnostic Testing: Clinical Impression(s) from Imaging Studies Abdomen/Pelvis CT 09/23/24 05:58 IMPRESSION: Bilateral nonobstructing renal calculi. There is an obstructing 6 mm calculus in the proximal left ureter causing mild left hydronephrosis. Right obstructive uropathy and obstructing right ureteral calculus present on the prior study are not present on the current examination. No bowel obstruction or perforation. Normal appendix. Small fat containing inguinal hernias. Moderate coronary artery calcifications. Similar-appearing partially calcified 5.6 cm exophytic cyst lateral mid right kidney. Severe degenerative change of the right hip joint. Small to moderate right hip joint effusion. One or more dose reduction techniques were used (e.g., Automated exposure control, adjustment of the mA and/or kV according to patient size, use of iterative reconstruction technique). Reading Location: [facility] Management Discussion w/another healthcare provider: Hospitalist and [employer] Discharge Plan Triage Chief Complaint: Flank Pain ED Provider: Gino Chaudhary Dx/Rx/DC Orders Clinical Impression: Acute kidney injury, Type 2 diabetes mellitus, Hypertension, Kidney stone Prescriptions: No Action atorvastatin 40 MG tablet 40 mg PO QHS lisinopril 5 MG tablet 5 mg PO DAILY metformin 500 MG tablet 500 mg PO BID acetaminophen 500 mg Tablet 1,000 mg PO Q6H PRN PRN (Reason: Pain Score 1-3) Qty: 0 0RF gabapentin 100 mg Capsule 100 mg PO TIDCM 30 Days Qty: 90 0RF Primary Care Provider: Mitch Mcwilliams Chi Referrals: Mitch Mcwilliams Chi, MD [Primary Care Provider] - Print Language: Hungarian Disposition Disposition: Acute Care Hospital [facility]
[2024-09-23] MEDS: HYDROmorphone 1 MG/ML Syringe IV ×3 (07:36→23:08)
[2024-09-23] MEDS: Ceftriaxone 1 GM/50 ML BAG IV (07:39)
[2024-09-23] MEDS: 0.9% Normal Saline (1000mL) 1,000 ML 100 ML IV ×2 (10:37→21:40)
[2024-09-23] MEDS: 0.9% Saline Lock 10 ML Syringe IV (10:37)
--- NOTE | 2024-09-23 11:38 | HP.PCM.HOS_ITS ---
HPI - General General Date of Admission: 09/23/24 HPI Narrative AARON GOMEZ, is a 74 M who presents to the hospital with left-sided flank pain over the last 2 to 3 days. He has had kidney stones in the past his most recent was in June 2024 on the right side. This time he has a 6 to 7 mm stone in the left ureter with mild hydronephrosis on CT scan. He does have a leukocytosis and UA is pending however he was covered with Rocephin in the ER. Urology has been consulted. [facility] Medical History Wears glasses History of MRSA infection Uses wheelchair Easy bruising Non-smoker Physical debility Debility Closed head injury Frequent falls Sciatica Kidney stones Decreased hearing Hyperlipemia Hypertension Chronic back pain Arthritis Type 2 diabetes mellitus Home Medications ?Medication ?Instructions ?Recorded ?Last Taken ?Type atorvastatin 40 mg tablet 40 mg PO QHS CHOLESTEROL 09/2611/21/21 History lisinopril 5 mg tablet 5 mg PO DAILY blood pressure 04/25/19 11/22/21 History metformin 500 mg tablet 500 mg PO BID diabetes 02/0211/22/21 History acetaminophen 500 mg tablet 1,000 mg (2 x 500 mg) PO Q 6H PRN 12/03/21 Unknown Rx PRN Pain Score 1-3 #0 tabs gabapentin 100 mg capsule 100 mg PO TIDCM 30 days #90 caps 12/03/21 Unknown Rx Allergy/AdvReac Type Severity Reaction Status Date / Time oxycodone HCl (From Percocet) Allergy Intermediate Other Verified 09/23/24 14:21 Family History Father Mental disorder Heart disease Mother Heart disease High cholesterol Surgical History History of cervical spinal surgery History of kidney stones Social History household members: none Smoking Status: Never smoker alcohol intake: never substance use type: does not use what type of physical activity do you participate in: walking frequency: daily ROS Constitutional Constitutional: Denies chills, fatigue, fever(s) or malaise Eyes Eyes: Denies blurry vision ENT HEENT: Denies headache(s) or nasal discharge Cardiovascular Cardiovascular: Denies chest pain, dyspnea on exertion or syncope Respiratory/Chest Respiratory/Chest: Denies cough, shortness of breath at rest or shortness of breath with exertion Gastrointestinal Gastrointestinal: Reports nausea; Denies constipation, diarrhea or vomiting Genitourinary Genitourinary: Reports flank pain; Denies dysuria Neurologic Neurologic: Denies focal weakness, numbness or tremor(s) Psychiatric Psychiatric: Denies anxiety or depression Vital Signs Vital Signs Vital Signs: 09/23/24 05:45 09/23/24 05:47 09/23/24 07:42 Temperature 98.6 F 97.4 F L Temperature Source Oral Pulse Rate 126 H 86 Respiratory Rate 18 15 Respiratory Effort Respiratory Depth Respiratory Pattern Blood Pressure 160/91 H 178/111 H 138/77 H Blood Pressure Mean 114 133 97 Pulse Ox 94 95 Oxygen Delivery Method Room Air 09/23/24 10:06 Temperature Temperature Source Pulse Rate Respiratory Rate Respiratory Effort Normal Respiratory Depth Normal Respiratory Pattern Tachypnea Blood Pressure Blood Pressure Mean Pulse Ox Oxygen Delivery Method Room Air Weight Weight: 217 lb 7 oz Body Mass Index (BMI) 32.1 Physical Exam Narrative General: Alert, Oriented x3, Cooperative, No apparent distress HEENT: Atraumatic, PERRLA, EOMI, Normocephalic Oral: Moist Mucosa Neck: Supple, No JVD Lungs: Diminished, Normal air movement, No rhonchi, No wheeze, No rales Cardiovascular: Regular rate, Regular Rhythm, Normal S1, Normal S2, No murmurs Abdomen: Soft, Non Tender, Non-Distended, No Hepato-splenomegaly Extremities: No edema, Capillary Refill Less than 3 Seconds Skin: No rashes, No breakdown Musculoskeletal: No Tenderness to Palpation of Joints or Extremities Neurological: No focal neurological deficits, Motor Exam 5/5 strength throughout, Sensory exam intact to light touch and pain Psych/Mental Status: Normal Affect, Appropriate, in pain Results Lab / Micro Data 09/23/24 06:03 09/23/24 06:03 Labs: Laboratory Results - last 24 hr 09/23/24 06:03: WBC 14.3 H, RBC 4.18 L, Hgb 13.4, Hct 40.8, MCV 97.6 H, MCH 32.1 H, MCHC 32.8, RDW Std Deviation 46.8 H, RDW Coeff of Javid 13.2, Plt Count 302, MPV 9.4, Immature Gran % (Auto) 1.500 H, Neut % (Auto) 83.8 H, Lymph % (Auto) 5.6 L, [place] % (Auto) 8.9, Eos % (Auto) 0.1, Baso % (Auto) 0.1, Absolute Neuts (auto) 12.0 H, Absolute Lymphs (auto) 0.80 L, Nucleated RBC % 0, Sodium 137, Potassium 4.3, Chloride 108 H, Carbon Dioxide 19.0 L, Anion Gap 10, BUN 45 H, C reatinine 2.49 H, Estim Creat Clear Calc 29.32, Est GFR (MDRD) Af Amer 33 L, Est GFR (MDRD) Non-Af 27 L, BUN/Creatinine Ratio 18.1, Glucose 233 H, Calcium 9.2 Imaging Radiology Impression Abdomen/Pelvis CT 09/23/24 05:58 IMPRESSION: Bilateral nonobstructing renal calculi. There is an obstructing 6 mm calculus in the proximal left ureter causing mild left hydronephrosis. Right obstructive uropathy and obstructing right ureteral calculus present on the prior study are not present on the current examination. No bowel obstruction or perforation. Normal appendix. Small fat containing inguinal hernias. Moderate coronary artery calcifications. Similar-appearing partially calcified 5.6 cm exophytic cyst lateral mid right kidney. Severe degenerative change of the right hip joint. Small to moderate right hip joint effusion. One or more dose reduction techniques were used (e.g., Automated exposure control, adjustment of the mA and/or kV according to patient size, use of iterative reconstruction technique). Reading Location: [facility] Assessment & Plan Assessment/Plan (1) Kidney stone: (2) Acute kidney injury: PLAN: Plan 1. Left urolithiasis with mild hydronephrosis possible infection/BERNARD ? Unclear if he has a UTI as we have not had a UA obtained yet, his leukocytosis could simply be reaction to the kidney stone ? Will continue with ciprofloxacin IV daily secondary to his BERNARD ? Baseline creatinine is around 1 and on admission he reported I, will continue with IV fluids ? Will place him on Flomax ? Aggressive pain management ? Will hold his lisinopril 2. Essential HTN/HLD ? Blood pressures are stable ? Will hold his lisinopril secondary to his BERNARD ? Monitor make adjustments as necessary ? Can resume his Lipitor 3. DM2 ?continue with sliding scale insulin ? Will hold his metformin ? Accu-Cheks ACHS ? Will monitor and make adjustments as necessary DVT: SCDs 75 minutes was spent on direct patient care, including documentation as well as chart review and collaboration with colleagues Charges/Coding Visit Charges Inpatient E&M: 63626 Init Hosp L3
[2024-09-23] MEDS: Gabapentin 100 MG Capsule PO ×2 (11:39→16:15)
[2024-09-23] MEDS: Ciprofloxacin 400 MG/200 ML BAG 200 MG IV (11:40)
[2024-09-23] MEDS: Insulin Lispro 100 UNIT/ML INSULN.PEN SC ×2 (11:52→16:13)
[2024-09-23 12:13] LABS: Bedside Glucose 194 mg/dL (74-106)
[2024-09-23] MEDS: Tamsulosin HCl 0.4 MG Capsule PO (16:15)
[2024-09-23 16:35] LABS: Bedside Glucose 182 mg/dL (74-106)
[2024-09-23] MEDS: Atorvastatin Calcium 40 MG Tablet PO (21:42)
[2024-09-23 22:08] LABS: Bedside Glucose 113 mg/dL (74-106)
[2024-09-23 23:17] LABS: Color, Urine Yellow (Yellow); Glucose, Dipstick 50 mg/dl (Normal); Ketone-Dipstick Negative (Negative); Leukocyte Esterase-Dipstick Negative /ul (Negative); Nitrite-Dipstick Negative (Negative); Occult Blood-Urine 250 /ul (Negative); Protein-Dipstick 100 mg/dl (Negative); Specific Gravity, Urine 1.025 (1.002-1.030); Urine Bilirubin Dipstick Negative (Negative); Urine Clarity Clear (Clear); Urine Urobilinogen Normal (Normal)
[2024-09-23 23:25] LABS: Bacteria 1+ /hpf (None Seen); Mucous, Urine 1+ /hpf (<or=2+); Red Blood Cells-Urine 10-25 SEEN /hpf (0-5); Squamous Epithelial Cells - UA 0-5 SEEN /hpf (0-5); White Blood Cells 0-5 SEEN /hpf (0-5)
[2024-09-24] VITALS (13 sets, daily range): BP systolic 116–157; BP diastolic 59–91; PULSE 71–110; RESP 16–18; TEMP 36.6–37.2; O2SAT 94–100; BMI 32.1
[2024-09-24] MEDS: HYDROmorphone 1 MG/ML Syringe IV (03:37)
[2024-09-24 06:10] LABS: Absolute Lymphocyte Count 1.31 X10^3/uL (0.83-4.51); Absolute Neutrophil Count 6.5 X10^3/uL (2.0-7.7); Basophil# 0.02 X10^3/uL; Basophil% 0.2 % (0-1); Eosinophil# 0.07 X10^3/uL; Eosinophils% 0.8 % (0-5); Hemoglobin 10.9 g/dL (13.0-16.5); Lymphocyte # 1.31 X10^3/ul (0.83-4.51); Lymphocyte % 14.4 % (19-41); Mean Corpuscular Hgb 32.9 pg (27.0-32.0); Mean Corpuscular Volume 99.7 fL (80-94); Mean Platelet Vol. 9.4 fl (6.2-12.0); Monocyte# 1.11 X10^3/uL; Monocyte% 12.2 % (0-10); NRBC Flagged by Analyzer 0 % (0-5); Neutrophil # 6.48 X10^3/uL (2.7-7.7); Platelet Count 217 K/mm3 (150-450); RBC Distribution Width CV 13.4 % (11.6-14.6); RBC Distribution Width SD 49.1 fl (35.1-43.9); Red Blood Count 3.31 M/mm3 (4.6-6.2); White Blood Count 9.1 K/mm3 (4.4-11.0)
[2024-09-24] MEDS: Acetaminophen 500 MG Tablet 1000 MG PO (06:15)
[2024-09-24] MEDS: oxyCODONE 5 MG Tablet PO ×2 (06:15→21:41)
[2024-09-24 06:25] LABS: Bedside Glucose 127 mg/dL (74-106)
[2024-09-24 06:43] LABS: Anion Gap 8 (5-15); BUN 40 mg/dL (7-18); BUN/Creat Ratio 16.8 RATIO (10-20); Calcium,Total 8.3 mg/dL (8.5-10.1); Chloride 111 mmol/L (98-107); Creatinine, Serum 2.38 mg/dL (0.70-1.30); EST Glomerular Filtration Rate 28 mL/min (>60); Est Glom Filt Rate - Afr Amer 34 mL/min (>60); Estimated Creatinine Clearance 30.58 ml/min; Glucose 130 mg/dL (74-106); Potassium 4.6 mmol/L (3.5-5.1); Sodium Level 138 mmol/L (136-145)
--- NOTE | 2024-09-24 07:15 | CON.PCM.UR_ITS ---
Assessment & Plan Assessment/Plan (1) Kidney stone: PLAN: Plan for cystoscopy and left stent placement today (2) Acute kidney injury: HPI Consult Data Date of Consult: 09/24/24 HPI Narrative Reason for Consultation: Obstructing stone in mid left ureter HPI Narrative: AARON GOMEZ, is a 74 M who presents with severe pain obstructing stone in mid left ureter what appears to be pyelonephritis of the left kidney elevated white blood count creatinine was elevated plan to taken to surgery today for cystoscopy and left stent placement [facility] Medical History Wears glasses History of MRSA infection Uses wheelchair Easy bruising Non-smoker Physical debility Debility Closed head injury Frequent falls Sciatica Kidney stones Decreased hearing Hyperlipemia Hypertension Chronic back pain Arthritis Type 2 diabetes mellitus Home Medications ?Medication ?Instructions ?Recorded ?Last Taken ?Type atorvastatin 40 mg tablet 40 mg PO QHS CHOLESTEROL 09/2611/21/21 History lisinopril 5 mg tablet 5 mg PO DAILY blood pressure 04/25/19 11/22/21 History metformin 500 mg tablet 500 mg PO BID diabetes 02/0211/22/21 History acetaminophen 500 mg tablet 1,000 mg (2 x 500 mg) PO Q 6H PRN 12/03/21 Unknown Rx PRN Pain Score 1-3 #0 tabs gabapentin 100 mg capsule 100 mg PO TIDCM 30 days #90 caps 12/03/21 Unknown Rx Allergy/AdvReac Type Severity Reaction Status Date / Time oxycodone HCl (From Percocet) Allergy Intermediate Other Verified 09/23/24 14:21 Family History Father Mental disorder Heart disease Mother Heart disease High cholesterol Surgical History History of kidney stones History of cervical spinal surgery Social History household members: none Smoking Status: Never smoker alcohol intake: never substance use type: does not use what type of physical activity do you participate in: walking frequency: daily Physical Exam Const alert and oriented x3 General Appearance: cooperative HEENT normocephalic and head/scalp atraumatic Eyes PERRL and EOMs intact bilaterally Neck supple, no JVD and no carotid bruits Resp normal respiratory effort, normal air movement and clear to auscultation bilaterally Cardio regular rate and no murmurs GI normal to inspection, nondistended, normoactive bowel sounds and soft to palpation Extremity normal capillary refill General Extremity: no tenderness to palpation of joints or extremities; Negative for edema Skin no rashes or lesions noted and no wounds General Skin Exam: no breakdown Neuro CN's II-XII intact bilaterally Psych affect normal Appearance: appropriate Lab / Micro Data 09/24/24 05:26 09/24/24 05:26 Labs: Laboratory Results - last 24 hr 09/23/24 11:38: POC Glucose 194 H 09/23/24 16:09: POC Glucose 182 H 09/23/24 21:46: POC Glucose 113 H 09/23/24 23:05: Urine Color Yellow, Urine Clarity Clear, Urine pH 5.0, Ur Specific [place] 1.025, Urine Protein 100 H, Urine Glucose (UA) 50 H, Urine Ketones Negative, Urine Occult Blood 250 H, Urine Nitrite Negative, Urine Bilirubin Negative, Urine Urobilinogen Normal, Ur Leukocyte Esterase Negative, Urine RBC 10-25 SEEN, Urine WBC 0-5 SEEN, Ur Squamous Epith Cells 0-5 SEEN, Urine Bacteria 1+, Urine Mucus 1+ 09/24/24 05:26: WBC 9.1, RBC 3.31 L, Hgb 10.9 L, Hct 33.0 L, MCV 99.7 H, MCH 32.9 H, MCHC 33.0, RDW Std Deviation 49.1 H, RDW Coeff of Javid 13.4, Plt Count 217, MPV 9.4, Immature Gran % (Auto) 1.400 H, Neut % (Auto) 71.0 H, Lymph % (Auto) 14.4 L, [place] % (Auto) 12.2 H, Eos % (Auto) 0.8, Baso % (Auto) 0.2, Absolute Neuts (auto) 6.5, Absolute Lymphs (auto) 1.31, Nucleated RBC % 0, Sodium 138, Potassium 4.6, Chloride 111 H, Carbon Dioxide 19.0 L, Anion Gap 8, B UN 40 H, Creatinine 2.38 H, Estim Creat Clear Calc 30.58, Est GFR (MDRD) Af Amer 34 L, Est GFR (MDRD) Non-Af 28 L, BUN/Creatinine Ratio 16.8, Glucose 130 H, C alcium 8.3 L 09/24/24 06:08: POC Glucose 127 H Imaging Radiology Impression Abdomen/Pelvis CT 09/23/24 05:58 IMPRESSION: Bilateral nonobstructing renal calculi. There is an obstructing 6 mm calculus in the proximal left ureter causing mild left hydronephrosis. Right obstructive uropathy and obstructing right ureteral calculus present on the prior study are not present on the current examination. No bowel obstruction or perforation. Normal appendix. Small fat containing inguinal hernias. Moderate coronary artery calcifications. Similar-appearing partially calcified 5.6 cm exophytic cyst lateral mid right kidney. Severe degenerative change of the right hip joint. Small to moderate right hip joint effusion. One or more dose reduction techniques were used (e.g., Automated exposure control, adjustment of the mA and/or kV according to patient size, use of iterative reconstruction technique). Reading Location: [facility]
[2024-09-24] MEDS: Gabapentin 100 MG Capsule PO ×3 (07:45→16:48)
--- NOTE | 2024-09-24 09:08 | PN.HOSP_ITS ---
Subjective Subjective Doing well, no issues overnight Objective Data Objective Data Vital Signs: Vital Signs Temp Pulse Resp BP Pulse Ox O2 Del Method O2 Flow Rate 98.5 F 96 18 157/84 H 96 Nasal Cannula 2 09/24/24 03:44 09/24/24 03:44 09/24/24 03:44 09/24/24 03:44 09/24/24 08:39 09/24/24 08:39 09/24/24 08:39 Oxygen Flow Rate (L/min) 2 Oxygen Delivery Method Nasal Cannula Weight: 217 lb 7 oz Body Mass Index (BMI) 32.1 Intake & Output: Intake and Output for Last 24 Hours 09/23/24 09/24/24 09/25/24 03:59 03:59 03:59 Intake Total 2550 / 2550 1071.67 / 1071.67 Output Total 300 / 300 275 / 275 Balance 2250 / 2250 796.67 / 796.67 Lab / Micro Data 09/24/24 05:26 09/24/24 05:26 Labs: Laboratory Results - last 24 hr 09/23/24 11:38: POC Glucose 194 H 09/23/24 16:09: POC Glucose 182 H 09/23/24 21:46: POC Glucose 113 H 09/23/24 23:05: Urine Color Yellow, Urine Clarity Clear, Urine pH 5.0, Ur Specific [place] 1.025, Urine Protein 100 H, Urine Glucose (UA) 50 H, Urine Ketones Negative, Urine Occult Blood 250 H, Urine Nitrite Negative, Urine Bilirubin Negative, Urine Urobilinogen Normal, Ur Leukocyte Esterase Negative, Urine RBC 10-25 SEEN, Urine WBC 0-5 SEEN, Ur Squamous Epith Cells 0-5 SEEN, Urine Bacteria 1+, Urine Mucus 1+ 09/24/24 05:26: WBC 9.1, RBC 3.31 L, Hgb 10.9 L, Hct 33.0 L, MCV 99.7 H, MCH 32.9 H, MCHC 33.0, RDW Std Deviation 49.1 H, RDW Coeff of Javid 13.4, Plt Count 217, MPV 9.4, Immature Gran % (Auto) 1.400 H, Neut % (Auto) 71.0 H, Lymph % (Auto) 14.4 L, [place] % (Auto) 12.2 H, Eos % (Auto) 0.8, Baso % (Auto) 0.2, Absolute Neuts (auto) 6.5, Absolute Lymphs (auto) 1.31, Nucleated RBC % 0, Sodium 138, Potassium 4.6, Chloride 111 H, Carbon Dioxide 19.0 L, Anion Gap 8, B UN 40 H, Creatinine 2.38 H, Estim Creat Clear Calc 30.58, Est GFR (MDRD) Af Amer 34 L, Est GFR (MDRD) Non-Af 28 L, BUN/Creatinine Ratio 16.8, Glucose 130 H, C alcium 8.3 L 09/24/24 06:08: POC Glucose 127 H Micro: Microbiology 09/23/24 23:05 Urine, Clean Catch Urine Culture - Preliminary Culture exhibits no growth. Physical Exam Narrative General: Alert, Oriented x3, Cooperative, No apparent distress HEENT: Atraumatic, PERRLA, EOMI, Normocephalic Oral: Moist Mucosa Neck: Supple, No JVD Lungs: Diminished, Normal air movement, No rhonchi, No wheeze, No rales Cardiovascular: Regular rate, Regular Rhythm, Normal S1, Normal S2, No murmurs Abdomen: Soft, Non Tender, Non-Distended, No Hepato-splenomegaly Extremities: No edema, Capillary Refill Less than 3 Seconds Skin: No rashes, No breakdown Musculoskeletal: No Tenderness to Palpation of Joints or Extremities Neurological: No focal neurological deficits, Motor Exam 5/5 strength throughout, Sensory exam intact to light touch and pain Psych/Mental Status: Normal Affect, Appropriate Assessment & Plan Assessment/Plan (1) Kidney stone: (2) Acute kidney injury: PLAN: Plan 1. Left urolithiasis with mild hydronephrosis possible infection/BERNARD ? Unclear if he has a UTI as we have not had a UA obtained yet, his leukocytosis could simply be reaction to the kidney stone ? Will continue with ciprofloxacin IV daily secondary to his BERNARD ? Baseline creatinine is around 1 and on admission was 2.49, will continue with IV fluids, renal functions improved ? Will place him on Flomax ? Aggressive pain management ? Will hold his lisinopril 2. Essential HTN/HLD ? Blood pressures are stable ? Will hold his lisinopril secondary to his BERNARD ? Monitor make adjustments as necessary ? Can resume his Lipitor 3. DM2 ?continue with sliding scale insulin ? Will hold his metformin ? Accu-Cheks ACHS ? Will monitor and make adjustments as necessary DVT: SCDs Charges/Coding Visit Charges Inpatient E&M: 26128 Subs Hosp L2
[2024-09-24] MEDS: 0.9% Normal Saline (1000mL) 1,000 ML 100 ML IV (09:33)
[2024-09-24 10:13] LABS: Absolute Lymphocyte Count 1.44 X10^3/uL (0.83-4.51); Absolute Neutrophil Count 6.3 X10^3/uL (2.0-7.7); Basophil# 0.02 X10^3/uL; Basophil% 0.2 % (0-1); Eosinophil# 0.08 X10^3/uL; Eosinophils% 0.9 % (0-5); Hematocrit 32.4 % (40-54); Hemoglobin 10.5 g/dL (13.0-16.5); Lymphocyte # 1.44 X10^3/ul (0.83-4.51); Lymphocyte % 16.1 % (19-41); Mean Corp Hgb Conc 32.4 g/dL (32-36); Mean Corpuscular Hgb 32.1 pg (27.0-32.0); Mean Corpuscular Volume 99.1 fL (80-94); Mean Platelet Vol. 9.2 fl (6.2-12.0); Monocyte% 11.2 % (0-10); NRBC Flagged by Analyzer 0 % (0-5); Neutrophil # 6.31 X10^3/uL (2.7-7.7); Neutrophil % 70.6 % (47-70); Platelet Count 208 K/mm3 (150-450); RBC Distribution Width CV 13.2 % (11.6-14.6); RBC Distribution Width SD 47.6 fl (35.1-43.9); Red Blood Count 3.27 M/mm3 (4.6-6.2); White Blood Count 8.9 K/mm3 (4.4-11.0)
[2024-09-24 11:22] LABS: Bedside Glucose 109 mg/dL (74-106)
[2024-09-24 11:29] LABS: Hemoglobin A1c 6.9 % (3.8-5.6)
[2024-09-24] MEDS: 0.9% Normal Saline (1000mL) 1,000 ML 15 ML IV (11:50)
--- NOTE | 2024-09-24 12:11 | PCM.PRE.AN2 ---
ASA Classification* ASA Classification ASA Classification: 3 Assessment & Plan Anesthesia* Anesthesia Assessment Anesthesia Assessment: Discussed sedation and/or anesthesia options, risks, benefits, and alternatives with patient/parents/legal guardian/POA. Questions invited. The patient/parents/legal guardian/POA seems to understand and agrees to proceed with anesthesia plan. Reviewed the physical assessment, medical history, allergy history and patient home medications list prior to surgery/procedure/anesthetic and documented any changes. Performed airway and anesthesia risk assessments. Anesthesia Type Anesthesia Type: MAC Anesthesia Focused Assessment* Temperature: 98.2 F Pulse Rate: 71 Blood Pressure: 116/60 Respiratory Rate: 16 Pulse Ox: 99 Oxygen Flow Rate (L/min): 2 Airway Assessment Mouth opens: >3 cm Mallampati Score: II Focused Labs Anesthesia Preop lab: CBC WBC 8.9 K/mm3 (4.4-11.0) 09/24/24 10:04 09/24/24 RBC 3.27 M/mm3 (4.6-6.2) L 09/24/24 10:04 09/24/24 Hgb 10.5 g/dL (13.0-16.5) L 09/24/24 10:04 09/24/24 Hct 32.4 % (40-54) L 09/24/24 10:04 09/24/24 Plt Count 208 K/mm3 (150-450) 09/24/24 10:04 09/24/24 CHEMISTRY Potassium 4.6 mmol/L (3.5-5.1) 09/24/24 05:26 09/24/24 Sodium 138 mmol/L (136-145) 09/24/24 05:26 09/24/24 BUN 40 mg/dL (7-18) H 09/24/24 05:26 09/24/24 Creatinine 2.38 mg/dL (0.70-1.30) H 09/24/24 05:26 09/24/24 Glucose 130 mg/dL (74-106) H 09/24/24 05:26 09/24/24 POC Glucose 109 mg/dL (74-106) H 09/24/24 10:57 09/24/24 TSH 1.280 uIU/mL (0.358-3.740) 06/13/24 09:49 06/13/24 COAG Pre-Assessment Diagnosis/Proposed Procedure Planned Operative Procedure(s): Cystoscopy. stent placement ureter Anesthesia History Anesthesia History - application project leader: Anesthesia History - application project leader Hx Hospitalization Yes 12/01/21 14:58 Any Problems With Anesthesia No 09/24/24 09:36 Cholinesterase deficiency No 09/24/24 09:36 You/Your Family Experience No 09/24/24 09:36 fever (hyperthermia) with Relationship Recent Exposure to Contagious No 09/24/24 09:36 Disease Does patient have nerve No 09/24/24 09:36 stimulator Patient instructed to have No 09/24/24 09:36 device shut off --Does patient have Pacemaker No 09/24/24 10:25 or ICD? When Was Last Pacemaker Check QUESTION #4 FULL TEXT: You/Your Family Experience fever (hyperthermia) with Anesthesia Last Oral Intake Last Oral intake: Last Oral Intake NPO since 07:00 09/24/24 10:25 Meds taken in AM with sips of Yes 09/24/24 10:25 water? Meds patient instructed to take am of surgery PONV PONV - application project leader: PONV - application project leader Female HX of Motion Sickness HX of N/V After Surgery Non-Smoker Duration of Surgery greater than 60 minutes Number of Risk Factors PONV Score Height & Weight Height & Weight: Anesthesia: Height & Weight Height 5 ft 9 in 09/24/24 10:25 Weight: 98.628 kg 09/24/24 10:25 Body Mass Index (BMI) 32.1 09/24/24 10:25 Respiratory Assessment Respiratory Assessment - application project leader: Respiratory Tract Infection Hx - application project leader Hx Respiratory Tract Infection No 09/24/24 09:36 STOP Sleep Apnea STOP Sleep Apnea - application project leader: STOP Sleep Apnea - application project leader Hx Hypertension Yes 09/23/24 10:06 Hx Sleep Apnea No 09/23/24 10:06 CPAP No 12/01/21 16:40 BIPAP No 12/01/21 14:58 Do you snore loudly (louder No 09/23/24 10:06 than talking or can be heard Do you often feel tired/ No 09/23/24 10:06 fatigued/ sleepy during daytime? Has anyone observed you stop No 09/23/24 10:06 breathing during sleep? STOP Results Negative 09/23/24 10:06 QUESTION #5 FULL TEXT : Do you snore loudly (louder than talking or can be heard through closed doors)? 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 Specify any problems Hx of Preganancy in last 3 N/A 09/23/24 10:06 Months Nurse Filling Out Transfusion [id number] 09/23/24 10:06 & Questions: Date: 09/23/24 09/23/24 10:06 Time: 10:22 09/23/24 10:06 Patient unable to answer at this time (ie. confused, unrespo /Reproduction History /Reproductive History - application project leader: /Reproductive Hx- application project leader Hx Now No 09/24/24 09:36 Gestational Age (in weeks): EDC: Hx Hx Para Hx Section SAB No 09/24/24 09:36 Active Medications Active Medications: Current Medications Generic Name Dose Route Start Last Admin Trade Name Freq PRN Reason Stop Dose Admin Acetaminophen 1,000 mg 09/23/24 10:06 09/24/24 06:15 Acetaminophen 500 Mg Tablet PO 1,000 mg Q6H PRN PRN Administration Pain Score 1-3 Atorvastatin Calcium 40 mg 09/23/24 22:00 09/23/24 21:42 Atorvastatin Calcium 40 Mg Tablet PO 40 mg QHS THAD Administration Gabapentin 100 mg 09/23/24 10:06 09/24/24 07:45 Gabapentin 100 Mg Capsule PO 100 mg TIDCM THAD Administration Glucagon 1 mg 09/23/24 10:06 Glucagon 1 Mg/Ml Syringe IM X1 PRN HYPOGLYCEMIA Protocol Hydromorphone HCl 0.5 - 1 mg 09/23/24 10:06 09/24/24 03:37 Hydromorphone 1 Mg/Ml Syringe IV 1 mg Q3H PRN PRN Administration Pain Score 6-10 Dextrose 250 mls @ 0 mls/hr 09/23/24 10:06 Dextrose 10%-Water IV .Q0M PRN HYPOGLYCEMIA Protocol As Directed Sodium Chloride 100 mls @ 15 mls/hr 09/23/24 10:24 IV .Q6H40M PRN Saline Flush Sodium Chloride 100 mls @ 15 mls/hr 09/23/24 10:24 IV .Q6H40M PRN Additional IVPB Infusion Sodium Chloride 1,000 mls @ 100 mls/hr 09/24/24 09:10 09/24/24 09:33 IV 09/24/24 19:09 100 mls/hr .Q10H THAD Administration Protocol Sodium Chloride 1,000 mls @ 15 mls/hr 09/24/24 11:45 09/24/24 11:50 IV 09/30/24 01:04 15 mls/hr .Q48H THAD Administration Protocol Insulin Human Lispro 0 unit 09/23/24 11:00 09/24/24 11:10 Insulin Lispro 100 Unit/Ml Insuln.Pen SC Not Given ACHS THAD Protocol Oxycodone HCl 5 mg 09/23/24 10:06 09/24/24 06:15 Oxycodone 5 Mg Tablet PO 5 mg Q4H PRN PRN Administration Pain Score 4-10 Sodium Chloride 10 - 40 ml 09/23/24 10:24 09/23/24 10:37 0.9% Saline Lock 10 Ml Syringe IV 10 ml UD PRN Administration SALINE FLUSH Tamsulosin HCl 0.4 mg 09/23/24 17:30 09/23/24 16:15 Tamsulosin Hcl 0.4 Mg Capsule PO 0.4 mg DAILY@1730 THAD Administration [facility] Medical History Wears glasses History of MRSA infection Uses wheelchair Easy bruising Non-smoker Physical debility Debility Closed head injury Frequent falls Sciatica Kidney stones Decreased hearing Hyperlipemia Hypertension Chronic back pain Arthritis Type 2 diabetes mellitus Home Medications ?Medication ?Instructions ?Recorded ?Last Taken ?Type atorvastatin 40 mg tablet 40 mg PO QHS CHOLESTEROL 11/07/18 11/21/21 History lisinopril 5 mg tablet 5 mg PO DAILY blood pressure 04/25/19 11/22/21 History metformin 500 mg tablet 500 mg PO BID diabetes 02/03/20 11/22/21 History acetaminophen 500 mg tablet 1,000 mg (2 x 500 mg) PO Q6H PRN 12/03/21 Unknown Rx PRN Pain Score 1-3 #0 tabs gabapentin 100 mg capsule 100 mg PO TIDCM 30 days #90 caps 12/03/21 Unknown Rx Allergy/AdvReac Type Severity Reaction Status Date / Time oxycodone HCl (From Percocet) Allergy Intermediate Other Verified 09/23/24 14:21 Family History Father Mental disorder Heart disease Mother Heart disease High cholesterol Surgical History History of kidney stones History of cervical spinal surgery Social History household members: none Smoking Status: Never smoker alcohol intake: never substance use type: does not use what type of physical activity do you participate in: walking frequency: daily Review of Systems (Anesthesia) ROS Narrative System reviewed and no additional complaints, except as documented.
[2024-09-24] MEDS: Cefazolin 2 GM in Syringe IV (12:26)
--- NOTE | 2024-09-24 12:34 | NURSING ---
pt to surgery
--- NOTE | 2024-09-24 13:02 | PCM.POST.ANE ---
Anesthesia: Postop Eval I Current Vital Signs Temperature: 98.9 F Pulse Rate: 88 Blood Pressure: 142/85 Respiratory Rate: 16 Pulse Ox: 100 Assessment Airway patent: Yes Spontaneous unlabored respirations: Yes nausea: No Vomiting: No Anesthesia Complication: No Fluid Hydration Crystalloid volume administer (ml): 400 Total IV fluid infused: 400 Progress Note Anesthesia document: Postop Eval 1 completed: Yes
--- NOTE | 2024-09-24 13:40 | POSTOPAN2_ITS ---
Anesthesia Postop Eval I Sum Postop Eval Completion status Anesthesia document: Postop Eval 1 completed: Yes Anesthesia Postop Eval I Summary Anesthesia Postop Eval I Summary: Anesthesia Postop Eval I: Assessment Summary Airway patent Yes 09/24/24 13:02 INTERMODAL [email or web address].[email or web address] Spontaneous unlabored Yes 09/24/24 13:02 INTERMODAL [email or web address].[email or web address] respirations Mental status nausea No 09/24/24 13:02 INTERMODAL [email or web address].[email or web address] Vomiting No 09/24/24 13:02 INTERMODAL [email or web address] Anesthesia Postop Eval I: Fluid Summary Crystalloid volume administer 400 09/24/24 13:02 INTERMODAL [email or web address].TNES (ml) Colloids volume administered ( ml) Blood Product volume administered (ml) Total IV fluid infused 400 09/24/24 13:02 INTERMODAL [email or web address].[email or web address] Anesthesia Postop Eval I: Summary Notes Anesthesia Complication No 09/24/24 13:02 INTERMODAL [email or web address].[email or web address] Anesthesia Complication Comment: Post-operative progress note Anesthesia: Postop Eval II Evaluation Mental status: Awake Pain Level: 0 nausea: No Vomiting: No
--- NOTE | 2024-09-24 13:40 | PCM.POSTANE2 ---
Anesthesia Postop Eval I Sum Postop Eval Completion status Anesthesia document: Postop Eval 1 completed: Yes Anesthesia Postop Eval I Summary Anesthesia Postop Eval I Summary: Anesthesia Postop Eval I: Assessment Summary Airway patent Yes 09/24/24 13:02 CUSTOM FEED MILL OPERATOR [email or web address].[email or web address] Spontaneous unlabored Yes 09/24/24 13:02 CUSTOM FEED MILL OPERATOR HELPER.TNES respirations Mental status nausea No 09/24/24 13:02 CUSTOM FEED MILL OPERATOR HELPER.[email or web address] Vomiting No 09/24/24 13:02 CUSTOM FEED MILL OPERATOR HELPER.TNES Anesthesia Postop Eval I: Fluid Summary Crystalloid volume administer 400 09/24/24 13:02 CUSTOM FEED MILL OPERATOR HELPER.TNES (ml) Colloids volume administered ( ml) Blood Product volume administered (ml) Total IV fluid infused 400 09/24/24 13:02 CUSTOM FEED MILL OPERATOR HELPER.TNES Anesthesia Postop Eval I: Summary Notes Anesthesia Complication No 09/24/24 13:02 CUSTOM FEED MILL OPERATOR HELPER.TNES Anesthesia Complication Comment: Post-operative progress note Anesthesia: Postop Eval II Evaluation Mental status: Awake Pain Level: 0 nausea: No Vomiting: No
--- NOTE | 2024-09-24 13:59 | CHAPLAIN ---
Type of Pastoral Visit ___ Initial Visit ___ Follow-up Visit ___ On-call Visit ___ General Patient Visit ___ Spiritual Assessment ___ Family Conference ___ Bereavement ___ Rapid Response ___ Code Blue ___ Other (describe below) Pastoral Care Referral From ___ Patient ___ Family ___ Nurse ___ Physician ___ Collection Development Librarian ___ Hot Stone Setter ___ Other (describe below) Sacrament/Intervention ___ Active listening ___ Anointing ___ Temple ___ Bereavement ___ Communion ___ Trudi exploration ___ ___ Life review ___ Prayer ___ Reconciliation ___ Sacrament of Sick ___ Supportive presence ___ Wedding ___ Other (describe below) Pastoral Comments patient and bed are out of the room; left a calling card
--- NOTE | 2024-09-24 14:08 | CASEMGMT ---
CLEMENCIA GREEN Assessment: Face to Face with pt for initial transition planning/care coordination assessment. CLEMENCIA GREEN introduced self and role at [facility], pt voices understanding and consents to assessment. Pt is A&O x4 and answers all questions appropriately at this time. Pt is sitting up in bed in no distress. Care providers, pharmacy, and demographics verified/updated. Admitting Dx: Infected Kidney Stone PCP: Oj Specialists: Gumaro, Urologist Preferred Pharmacy: [facility] Insurance:[facility], MMO Prescription Benefit: yes LNOK: Daughter, Bhavani Living Arrangements: Pt lives alone in a ranch home with 3 steps to enter. ADLs: Pt I at baseline. Transportation: Pt drives self and denies concerns with transportation. DME: Glucometer and supplies, walker, shower seat, has an Old O2 concentrator. HHC/SNF: Denies Hx of SNF. previously had HHC but does not recall what agency. Pt states no concerns with going home at time of dc. CLEMENCIA GREEN discussed possible O2 needs at DC. Pt does not have a portable tank at home. Provided list of local DME providers, pt chose [employer] as DME company of choice. Pt states no further concerns/needs. CM to follow. Advised pt to ask CM if any further question/concerns/needs arise, voices understanding. Pt Goal: Home Plan: Home, follow for O2 needs. Myranda KHANNA CM
--- NOTE | 2024-09-24 14:09 | OP.PCM_ITS ---
Operative Report (Standard) Operative Information Date of Procedure: 09/24/24 Pre-Operative Diagnosis: left obstruction kidney stone. Post-Operative Diagnosis: same Surgery/Procedure Performed: cystocopy and left stent placement and left retrograde pyelogram associate curator: No Type of Anesthesia: General RN Documented Start/Stop Times: Operation Date: 09/24/24 08:00 Case Time Into Pre-Op 09/24/24 11:44 Out of Pre-Op 09/24/24 12:23 Anesthesia Start 09/24/24 12:26 Into Room 09/24/24 12:26 Procedure Start 09/24/24 12:44 Procedure End 09/24/24 12:48 Anesthesia End 09/24/24 12:57 Out of Room 09/24/24 12:57 Into Recovery 09/24/24 13:00 Out of Recovery 09/24/24 13:39 Procedure Start Time: 12:44 Procedure Stop Time: 12:48 Select all DRAINS/GRAFTS/IMPLANTS that apply: Drains Drain details: left stent Estimated Blood Loss: 0 Specimen collected: No Description of surgery: Patient is taken back to surgery after induction of anesthesia in place in dorsal lithotomy position. The bladder the 21 Malay rigid cystoscope found to have prior prostate surgery with a well-respected prostate penis and tussles are prepped and refused a fashion. Went inside the bladder then I drained the bladder and cannulate of the left ureter orfice but a wire up before the risk of Polygram can see obstructing stone in and place a stent in the left side. Patient bladder was drained and aesthetic was versed and I have my office call and get him set up for surgery to laser the stone the left side and remove the stent. Surgical Findings: Obstructing left ureteral calculus Complications Complications: No Admit VTE Documentation VTE Present on Admission: No VTE Mechan Device Prophylaxis: SCD's VTE Pharm Prophylaxis ordered?: No
[2024-09-24 15:23] LABS: Anion Gap 5 (5-15); BUN 38 mg/dL (7-18); BUN/Creat Ratio 15.6 RATIO (10-20); Calcium,Total 8.7 mg/dL (8.5-10.1); Chloride 110 mmol/L (98-107); Creatinine, Serum 2.44 mg/dL (0.70-1.30); EST Glomerular Filtration Rate 28 mL/min (>60); Est Glom Filt Rate - Afr Amer 33 mL/min (>60); Estimated Creatinine Clearance 29.83 ml/min; Glucose 114 mg/dL (74-106); Potassium 4.5 mmol/L (3.5-5.1); Sodium Level 138 mmol/L (136-145)
[2024-09-24 15:52] LABS: Bedside Glucose 115 mg/dL (74-106)
[2024-09-24] MEDS: Tamsulosin HCl 0.4 MG Capsule PO (16:48)
[2024-09-24] MEDS: Insulin Lispro 100 UNIT/ML INSULN.PEN SC (21:41)
[2024-09-24] MEDS: Atorvastatin Calcium 40 MG Tablet PO (21:41)
[2024-09-24 22:50] LABS: Bedside Glucose 189 mg/dL (74-106)
[2024-09-25 04:19] VITALS: BP 131/67; PULSE 98; RESP 20; TEMP 37.1; O2SAT 95
[2024-09-25 06:22] LABS: Bedside Glucose 124 mg/dL (74-106)
[2024-09-25 07:07] LABS: Anion Gap 10 (5-15); BUN 34 mg/dL (7-18); BUN/Creat Ratio 18.9 RATIO (10-20); Calcium,Total 8.4 mg/dL (8.5-10.1); Chloride 109 mmol/L (98-107); EST Glomerular Filtration Rate 39 mL/min (>60); Est Glom Filt Rate - Afr Amer 47 mL/min (>60); Estimated Creatinine Clearance 40.43 ml/min; Glucose 130 mg/dL (74-106); Potassium 4.3 mmol/L (3.5-5.1); Sodium Level 139 mmol/L (136-145)
[2024-09-25] MEDS: Gabapentin 100 MG Capsule PO ×2 (09:04→11:21)
--- NOTE | 2024-09-25 09:14 | DCINST_ITS ---
Discharge Instructions Diet Discharge Diet: Carb Control Diet DC O2, CPAP, BIPAP needs Home O2 Discharge instructions: No Dressing / Incision Discharge Activity: Return to Normal Activity Dressing / Incision Call your doctor if you observe: Fever of 101 or Higher, Shortness of breath, Dizziness, Fainting spells, Swelling in the ankles, Chest pain and Increased palpitations (irregular heartbeat) Follow Up Care Test Results: Test results from this visit will be discussed in further detail at your follow- up appointment, if applicable. Discharge Plan Admission Admit Date/Time: 09/23/24 07:23 Attending Provider: Gen Mayen Primary Care Provider: Mitch Mcwilliams Chi Consulting Providers: Jose Manuel Pham Instructions Additional Instructions / Restrictions: Follow-up with your PCP in 3 to 5 days to monitor your renal function Discharge Orders/Prescriptions Prescriptions: New tamsulosin 0.4 mg Capsule 0.4 mg PO DAILY@1730 14 Days Qty: 14 0RF Continued atorvastatin 40 MG tablet 40 mg PO QHS acetaminophen 500 mg Tablet 1,000 mg PO Q6H PRN PRN (Reason: Pain Score 1-3) Qty: 0 0RF gabapentin 100 mg Capsule 100 mg PO TIDCM 30 Days Qty: 90 0RF Held lisinopril 5 MG tablet 5 mg PO DAILY Hold Instructions: Resume on 09/28/24. metformin 500 MG tablet 500 mg PO BID Hold Instructions: Resume on 09/27/24. Referrals / Follow Up: Jose Manuel Pham MD [Med Staff - Active Staff] - Within 1 Week Mitch Mcwilliams Chi, MD [Primary Care Provider] - Within 1 Week Disposition Disposition (needs filled in before D/C Order can be placed): Home, Self Care
[2024-09-25 09:37] VITALS: BP 144/69; PULSE 62; RESP 18; TEMP 37.3; O2SAT 97
[2024-09-25 09:43] VITALS: O2SAT 96
--- NOTE | 2024-09-25 09:48 | CASEMGMT ---
Pt nurse stated concerns of pt going home. States pt is shuffling gait and has shoes with stool in them from home. Therapy orders entered. 6cl=18, spoke with PT. Pt has dc order in.
--- NOTE | 2024-09-25 11:05 | PHA.DC.MC.R ---
Pharmacy [facility] Pharm[facility] Service has performed discharge medication reconciliation and counseling for this patient. 1. TAMSULOSIN 0.4MG PO DAILY@1730 The patient's discharge medication list was reviewed for discrepancies and discrepancies were resolved. The patient was counseled on the following discharge medications and changes in medications for homegoing were reviewed. The Reason for Use, instructions for use, and potential side effects were reviewed for all new medications. The patient's questions regarding all of their medications were answered. The patient was able to verbally demonstrate an understanding of their discharge medications. Medications at Discharge Home Medications atorvastatin 40 mg tablet 40 mg PO QHS CHOLESTEROL 11/07/18 lisinopril 5 mg tablet 5 mg PO DAILY blood pressure 04/25/19 Held on 09/25/24. Instructions: Resume on 09/28/24. metformin 500 mg tablet 500 mg PO BID diabetes 02/03/20 Held on 09/25/24. Instructions: Resume on 09/27/24. acetaminophen 500 mg tablet 1,000 mg (2 x 500 mg) PO Q6H PRN PRN Pain Score 1-3 #0 tabs 12/03/21 gabapentin 100 mg capsule 100 mg PO TIDCM 30 days #90 caps 12/03/21 tamsulosin 0.4 mg capsule 0.4 mg PO DAILY@1730 14 days #14 caps 09/25/24
[2024-09-25] MEDS: Insulin Lispro 100 UNIT/ML INSULN.PEN SC (11:19)
--- NOTE | 2024-09-25 11:28 | CASEMGMT ---
CLEMENCIA CM into pt room, pt had therapy. Pt sitting up in chair in no distress. Discussed dc with pt. Pt denies need for any therapy or SN in the home. Pt states he gets around well. States he drives his granddtr to functions. Pt reports he has help at home. He states he or family can care for the wound. Pt is aware that should he get home and change his mind, he can contact his PCP. Pt verbalizes understanding.
[2024-09-25 11:41] LABS: Bedside Glucose 224 mg/dL (74-106)
[2024-09-25 11:45] VITALS: BP 154/68; PULSE 60; RESP 18; TEMP 37.6; O2SAT 95
--- NOTE | 2024-09-25 14:16 | DS.PCM_ITS ---
Providers Date of Admission: 09/23/24 Primary Care Physician: Dr. Mitch Mcwilliams MD Consultations 09/23/24 10:06 Consult: Urology Routine Consulting Provider: Jose Manuel Pham Reason for Consult: Infected kidney stone EMERGENT Consult: No MD Notified: Yes Date Notified: 09/23/24 Time Notified: 07:51 Method of Notification: ED Physician Initiated Reason For Visit: INFEFCTED KIDNEY STONE Diagnosis Discharge Diagnosis (1) Kidney stone: Status: Acute Code(s): N20.0 - Calculus of kidney (2) Acute kidney injury: Status: Acute Code(s): N17.9 - Acute kidney failure, unspecified Medications at Discharge Home Medications atorvastatin 40 mg tablet 40 mg PO QHS CHOLESTEROL 11/07/18 lisinopril 5 mg tablet 5 mg PO DAILY blood pressure 04/25/19 Held on 09/25/24. Instructions: Resume on 09/28/24. metformin 500 mg tablet 500 mg PO BID diabetes 02/03/20 Held on 09/25/24. Instructions: Resume on 09/27/24. acetaminophen 500 mg tablet 1,000 mg (2 x 500 mg) PO Q6H PRN PRN Pain Score 1-3 #0 tabs 12/03/21 gabapentin 100 mg capsule 100 mg PO TIDCM 30 days #90 caps 12/03/21 tamsulosin 0.4 mg capsule 0.4 mg PO DAILY@1730 14 days #14 caps 09/25/24 Hospital Course Operations - (cystocopy and left stent placement and left retrograde pyelogram) Procedures None Summary of Care Provided Minutes Spent on Discharge: 33 Hospital Course: Per HPI: AARON GOMEZ, is a 74 M who presents to the hospital with left-sided flank pain over the last 2 to 3 days. He has had kidney stones in the past his most recent was in June 2024 on the right side. This time he has a 6 to 7 mm stone in the left ureter with mild hydronephrosis on CT scan. He does have a leukocytosis and UA is pending however he was covered with Rocephin in the ER. Urology has been consulted. Hospital Course: 1. Left urolithiasis with mild hydronephrosis possible infection/BERNARD ? Baseline creatinine is around 1 and on admission was 2.49, will continue with IV fluids, renal functions improved ? Will place him on Flomax ? Aggressive pain management ? Will hold his lisinopril 09/25/2024: His renal function improved today to 1.8 down from 2.44 that it was yesterday afternoon. His antibiotics have been discontinued because his urine culture was no growth. I discussed with him the plan for discharge today he expressed understanding of the risks and benefits of going home and would like to go home today. He denies to having any significant pain. I recommend that he follow-up with urology as an outpatient 1 week for definitive treatment of the stone. In the meantime we will continue with his Flomax on discharge and will hold his lisinopril and metformin for a few days to allow continued improvement of his renal function 2. Essential HTN/HLD ? Blood pressures are stable ? Will hold his lisinopril secondary to his BERNARD ? Monitor make adjustments as necessary ? Can resume his Lipitor 3. DM2 ?continue with sliding scale insulin ? Will hold his metformin ? Accu-Cheks ACHS ? Will monitor and make adjustments as necessary Physical Exam Narrative General: Alert, Oriented x3, Cooperative, No apparent distress HEENT: Atraumatic, PERRLA, EOMI, Normocephalic Oral: Moist Mucosa Neck: Supple, No JVD Lungs: Diminished, Normal air movement, No rhonchi, No wheeze, No rales Cardiovascular: Regular rate, Regular Rhythm, Normal S1, Normal S2, No murmurs Abdomen: Soft, Non Tender, Non-Distended, No Hepato-splenomegaly Extremities: No edema, Capillary Refill Less than 3 Seconds Skin: No rashes, No breakdown Musculoskeletal: No Tenderness to Palpation of Joints or Extremities Neurological: No focal neurological deficits, Motor Exam 5/5 strength throughout, Sensory exam intact to light touch and pain Psych/Mental Status: Normal Affect, Appropriate Weight / BMI Weight Weight: 217 lb 7 oz Body Mass Index (BMI) 32.1 ABG / Lab / Microbiology Data 09/24/24 10:04 09/25/24 06:00 Laboratory: Laboratory Results - last 24 hr 09/24/24 14:40: Sodium 138, Potassium 4.5, Chloride 110 H, Carbon Dioxide 23.0, Anion Gap 5, BUN 38 H, Creatinine 2.44 H, Estim Creat Clear Calc 29.83, Est GFR (MDRD) Af Amer 33 L, Est GFR (MDRD) Non-Af 28 L, BUN/Creatinine Ratio 15.6, G lucose 114 H, Calcium 8.7 09/24/24 15:24: POC Glucose 115 H 09/24/24 21:38: POC Glucose 189 H 09/25/24 06:00: Sodium 139, Potassium 4.3, Chloride 109 H, Carbon Dioxide 20.0 L , Anion Gap 10, BUN 34 H, Creatinine 1.80 H, Estim Creat Clear Calc 40.43, Est GFR (MDRD) Af Amer 47 L, Est GFR (MDRD) Non-Af 39 L, BUN/Creatinine Ratio 18.9, Glucose 130 H, Calcium 8.4 L 09/25/24 06:04: POC Glucose 124 H 09/25/24 11:17: POC Glucose 224 H Microbiology: Microbiology 09/23/24 23:05 Urine, Clean Catch Urine Culture - Preliminary Culture exhibits no growth. D/C Instructions Discharge Diet: Carb Control Diet Call your doctor if you observe: Fever of 101 or Higher, Shortness of breath, Dizziness, Fainting spells, Swelling in the ankles, Chest pain and Increased palpitations (irregular heartbeat) DC O2, CPAP, BIPAP Needs Home O2 Discharge instructions: No Meaningful Use Info Meaningful Use Meaningful Use Diagnoses (Choose all that apply): None applicable Ischemic Stroke Statin Dosing Therapy Reference: STATIN DOSE THERAPY REFERENCE: * Patients > 75 years receive moderate or high dose statin therapy. * Patients 75 years or YOUNGER should receive HIGH intensity statin dose unless contraindicated. You will be required to document reason for non-treatment if statin daily dose does not meet guidelines. HIGH DOSE STATIN THERAPY DAILY Atorvastatin > than or = to 40 mg Rosuvastatin > than or = to 20 mg Amlodipine + Atorvastatin > than or = to 2.5/40 mg Ezetimibe + Simvastatin 10/80 mg Simvastatin 80mg Discharge Plan Admission Admit Date/Time: 09/23/24 07:23 Attending Provider: Gen Mayen Primary Care Provider: Mitch Mcwilliams Chi Consulting Providers: Jose Manuel Pham Instructions Additional Instructions / Restrictions: Follow-up with your PCP in 3 to 5 days to monitor your renal function Discharge Orders/Prescriptions Prescriptions: New tamsulosin 0.4 mg Capsule 0.4 mg PO DAILY@1730 14 Days Qty: 14 0RF Continued atorvastatin 40 MG tablet 40 mg PO QHS acetaminophen 500 mg Tablet 1,000 mg PO Q6H PRN PRN (Reason: Pain Score 1-3) Qty: 0 0RF gabapentin 100 mg Capsule 100 mg PO TIDCM 30 Days Qty: 90 0RF Held lisinopril 5 MG tablet 5 mg PO DAILY Hold Instructions: Resume on 09/28/24. metformin 500 MG tablet 500 mg PO BID Hold Instructions: Resume on 09/27/24. Referrals / Follow Up: Jose Manuel Pham MD [Med Staff - Active Staff] - Within 1 Week Mitch Mcwilliams Chi, MD [Primary Care Provider] - Within 1 Week Disposition Disposition (needs filled in before D/C Order can be placed): Home, Self Care Charges/Coding Visit Charges Inpatient E&M: 46917 Disch Hosp >30min
--- NOTE | 2024-09-25 15:52 | CHAPLAIN ---
Type of Pastoral Visit ___ Initial Visit ___ Follow-up Visit ___ On-call Visit ___ General Patient Visit ___ Spiritual Assessment ___ Family Conference ___ Bereavement ___ Rapid Response ___ Code Blue ___ Other (describe below) Pastoral Care Referral From ___ Patient ___ Family ___ Nurse ___ Physician ___ Ship Unloader ___ Vertical Mill Operator ___ Other (describe below) Sacrament/Intervention ___ Active listening ___ Anointing ___ Religious ___ Bereavement ___ Communion ___ Trudi exploration ___ ___ Life review ___ Prayer ___ Reconciliation ___ Sacrament of Sick ___ Supportive presence ___ Wedding ___ Other (describe below) Pastoral Comments patient was discharged before he could be seen
== END 2024-09-25 14:33 | disposition home or self-care (01) | DRG 660 ==
LOC: ED 07:44 → MS3 09:37
PROVIDERS: Anesthesiology; Urology; Admitting Provider Family Medicine; Emergency Provider Emergency Medicine; PCP Family Medicine Geriatric Medicine; Visit Provider Family Medicine
PROC: 0T778DZ Dilation of Left Ureter with Intraluminal Device, Via Natural or Artificial Opening Endoscopic (ICD-10-PCS; CPT 52332; principal; 2024-09-24 07:50)
DX: N13.2 Hydronephrosis with renal and ureteral calculous obstruction (principal); R65.10 Systemic inflammatory response syndrome (SIRS) of non-infectious origin without acute organ dysfunction; L89.322 Pressure ulcer of left buttock, stage 2; L89.321 Pressure ulcer of left buttock, stage 1; E11.9 Type 2 diabetes mellitus without complications; N17.9 Acute kidney failure, unspecified; I10 Essential (primary) hypertension; E78.5 Hyperlipidemia, unspecified; M54.9 Dorsalgia, unspecified; K40.90 Unilateral inguinal hernia, without obstruction or gangrene, not specified as recurrent; N12 Tubulo-interstitial nephritis, not specified as acute or chronic; Z79.84 Long term (current) use of oral hypoglycemic drugs; G89.29 Other chronic pain; Z79.891 Long term (current) use of opiate analgesic; Z87.442 Personal history of urinary calculi; Z79.899 Other long term (current) drug therapy; Z79.02 Long term (current) use of antithrombotics/antiplatelets; Z88.5 Allergy status to narcotic agent; N28.1 Cyst of kidney, acquired
CPT/HCPCS: 36415; 74176; 76000; 80048; 81001; 82962; 83036; 85025; 87086; 93005; 97162; 97166; 99283; A4216; C1769; C2617; J0744; J2405

== ENCOUNTER → 2024-10-04 | Outpatient (CLI) | payer MEDICARE, OTHER, SELFPAY ==
[2024-10-04 16:20] LABS: Anion Gap 12 (5-15); BUN 31 mg/dL (4-19); Calcium 9.8 mg/dL (7.6-11.0); Carbon Dioxide 21.3 mmol/L (22.0-29.0); Chloride 106 mmol/L (96-108); Creatinine, Serum 1.4 mg/dL (0.8-1.3); EST Glomerular Filtration Rate 53 (>60); Glucose 138 mg/dL (70-99); Potassium 4.5 mmol/L (3.3-5.1); Sodium Level 140 mmol/L (133-145)
== END | disposition home or self-care (01) ==
LOC: POLAB3 15:06
PROVIDERS: PCP Family Medicine Geriatric Medicine; Visit Provider Family Medicine Geriatric Medicine
DX: I10 Essential (primary) hypertension (principal)
CPT/HCPCS: 36415; 80048

== ENCOUNTER 2024-10-19 10:57 | Day surgery (SDC) | payer MEDICARE, OTHER, SELFPAY ==
--- NOTE | 2024-10-11 10:38 | PAT.ANE_ITS ---
Pre-Assessment Diagnosis/Proposed Procedure Planned Operative Procedure(s): ESWL Anesthesia History Anesthesia History - financial dealers: Anesthesia History - financial dealers Hx Hospitalization Yes: STENT PLACEMENT 10/11/24 08:31 Any Problems With Anesthesia No 10/11/24 08:31 Cholinesterase deficiency No 10/11/24 08:31 You/Your Family Experience No 10/11/24 08:31 fever (hyperthermia) with Relationship Recent Exposure to Contagious No 09/24/24 09:36 Disease Does patient have nerve No 10/11/24 08:31 stimulator Patient instructed to have device shut off --Does patient have Pacemaker or ICD? When Was Last Pacemaker Check QUESTION #4 FULL TEXT: You/Your Family Experience fever (hyperthermia) with Anesthesia Last Oral Intake Last Oral intake: Last Oral Intake NPO since Meds taken in AM with sips of water? Meds patient instructed to take am of surgery PONV PONV - financial dealers: PONV - financial dealers Female No 10/11/24 08:31 HX of Motion Sickness No 10/11/24 08:31 HX of N/V After Surgery No 10/11/24 08:31 Non-Smoker Yes 10/11/24 08:31 Duration of Surgery greater Yes 10/11/24 08:31 than 60 minutes Number of Risk Factors 2 10/11/24 08:31 PONV Score Moderate Risk 10/11/24 08:31 Height & Weight Height & Weight: Anesthesia: Height & Weight Height 5 ft 9 in 09/24/24 10:25 Respiratory Assessment Respiratory Assessment - financial dealers: Respiratory Tract Infection Hx - financial dealers Hx Respiratory Tract Infection No 10/11/24 08:31 STOP Sleep Apnea STOP Sleep Apnea - financial dealers: STOP Sleep Apnea - financial dealers Hx Hypertension Yes: ON MEDS 10/11/24 08:31 Hx Sleep Apnea No 10/11/24 08:31 CPAP No 12/01/21 16:40 BIPAP No 12/01/21 14:58 Do you snore loudly (louder No 10/11/24 08:31 than talking or can be heard Do you often feel tired/ No 10/11/24 08:31 fatigued/ sleepy during daytime? Has anyone observed you stop No 10/11/24 08:31 breathing during sleep? STOP Results Negative 10/11/24 08:31 QUESTION #5 FULL TEXT : Do you snore loudly (louder than talking or can be heard through closed doors)? Tobacco Use History Tobacco Use History - financial dealers: Tobacco Use History - financial dealers Tobacco Use Smoking Status Never smoker 10/11/24 08:31 Hx Tobacco Use No 10/11/24 08:31 Years Smoking Packs Smoked per Day Smoking Cessation Date was within the last 15 years Hx Smoking Cessation Date Hx Smoking Cessation Counseling Hematologic Medial History Hematologic Hx - financial dealers: Hematologic Medical Hx - bread wrapper Hx of Blood Transfusion No 10/11/24 08:31 Hx of Transfusion in last 3 No 10/11/24 08:31 Months Date of Last Transfusion (if within last 3 months) Ever experience any problems No 10/11/24 08:31 with transfusion(s)? Specify any problems Hx of Preganancy in last 3 N/A 10/11/24 08:31 Months Nurse Filling Out Transfusion JZOLLINGE 10/11/24 08:31 & Questions: Date: 10/11/24 10/11/24 08:31 Time: 08:35 10/11/24 08:31 Patient unable to answer at this time (ie. confused, unrespo /Reproduction History /Reproductive History - financial dealers: /Reproductive Hx- financial dealers Hx Now No 10/11/24 08:31 Gestational Age (in weeks): EDC: Hx Hx Para Hx Section SAB No 10/11/24 08:31 [facility] Medical History (Updated 10/11/24 @ 08:31 by Peg Zhang) Loss of hearing Walker as ambulation aid High cholesterol History of stress test Wears glasses History of MRSA infection Non-smoker Physical debility Debility Closed head injury Frequent falls Sciatica Kidney stones Decreased hearing Hyperlipemia Hypertension Chronic back pain Arthritis Type 2 diabetes mellitus Home Medications ?Medication ?Instructions ?Recorded ?Last Taken ?Type atorvastatin 40 mg tablet 40 mg PO QHS CHOLESTEROL 09/2611/21/21 History lisinopril 5 mg tablet 5 mg PO DAILY blood pressure 04/25/19 11/22/21 History metformin 500 mg tablet 500 mg PO BID diabetes 02/0211/22/21 History acetaminophen 500 mg tablet 1,000 mg (2 x 500 mg) PO Q 6H PRN 12/03/21 Unknown Rx PRN Pain Score 1-3 #0 tabs gabapentin 100 mg capsule 100 mg PO TIDCM 30 days #90 caps 12/03/21 Unknown Rx tamsulosin 0.4 mg capsule 0.4 mg PO DAILY@1730 14 days #14 09/25/24 Unknown Rx caps Allergy/AdvReac Type Severity Reaction Status Date / Time oxycodone HCl (From Percocet) Allergy Intermediate Other Verified 10/11/24 08:19 Family History Father Mental disorder Heart disease Mother Heart disease High cholesterol Surgical History History of kidney stones History of cervical spinal surgery Social History household members: none Smoking Status: Never smoker alcohol intake: never substance use type: does not use what type of physical activity do you participate in: walking frequency: daily Audit: Pertinent Findings Pertinent Findings EKG Perinent findings: September 23, 2024. Sinus tachycardia at 108 bpm with first-degree AV block and occasional PVCs. Right bundle branch block. Inferior infarct age undetermined. Recommendation Anesthesia Recommendation Anesthesia recommendation: OPTIMIZED for anesthesia
[2024-10-19] VITALS (8 sets, daily range): BP systolic 139–162; BP diastolic 70–104; PULSE 83–87; RESP 16–20; TEMP 36.1–36.8; O2SAT 93–98; BMI 31.0
--- NOTE | 2024-10-19 11:05 | RAD_ITS ---
PROCEDURE: ABDOMEN SINGLE VIEW REASON FOR EXAM: PRE OP TECHNIQUE: Single view abdomen. COMPARISON: 09/23/2024 FINDINGS: No visible bowel dilatation. Interval placement of a left nephroureteral stent. Suspect that the previous 12 mm left ureteral calculus has migrated distally, now projecting over the pelvis. Redemonstrated small calculus projecting over the right renal silhouette. The punctate intrarenal calculus on the left is not visible. Grossly similar presumed pelvic phleboliths. Lumbar spondylosis and trace lumbar levoscoliosis. Severe degenerative changes of the right hip with near-complete loss of joint space. More mild degenerative changes of the left hip. RAD/Abdomen Single View IMPRESSION: 1. Interval placement of left nephroureteral stent with likely migration of the previous 12 mm left ureteral calculus into the bladder. 2. Additional description as above. Reading Location: [id number]
--- NOTE | 2024-10-19 11:22 | PCM.PRE.AN2 ---
ASA Classification* ASA Classification ASA Classification: 2 Assessment & Plan Anesthesia* Anesthesia Assessment Anesthesia Assessment: Discussed sedation and/or anesthesia options, risks, benefits, and alternatives with patient/parents/legal guardian/POA. Questions invited. The patient/parents/legal guardian/POA seems to understand and agrees to proceed with anesthesia plan. Reviewed the physical assessment, medical history, allergy history and patient home medications list prior to surgery/procedure/anesthetic and documented any changes. Performed airway and anesthesia risk assessments. Anesthesia Type Anesthesia Type: General Anesthesia Focused Assessment* Airway Assessment Mouth opens: >3 cm Mallampati Score: II Focused Labs Anesthesia Preop lab: CBC WBC 8.9 K/mm3 (4.4-11.0) 09/24/24 10:04 09/24/24 RBC 3.27 M/mm3 (4.6-6.2) L 09/24/24 10:04 09/24/24 Hgb 10.5 g/dL (13.0-16.5) L 09/24/24 10:04 09/24/24 Hct 32.4 % (40-54) L 09/24/24 10:04 09/24/24 Plt Count 208 K/mm3 (150-450) 09/24/24 10:04 09/24/24 CHEMISTRY Potassium 4.5 mmol/L (3.3-5.1) 10/04/24 15:06 10/04/24 Sodium 140 mmol/L (133-145) 10/04/24 15:06 10/04/24 BUN 31 mg/dL (4-19) H 10/04/24 15:06 10/04/24 Creatinine 1.4 mg/dL (0.8-1.3) H 10/04/24 15:06 10/04/24 Glucose 138 mg/dL (70-99) H 10/04/24 15:06 10/04/24 POC Glucose 224 mg/dL (74-106) H 09/25/24 11:09/25/24 TSH 1.280 uIU/mL (0.358-3.740) 06/13/24 09:49 06/13/24 COAG Pre-Assessment Diagnosis/Proposed Procedure Planned Operative Procedure(s): ESWL Anesthesia History Anesthesia History - biomedical repair technician: Anesthesia History - biomedical repair technician Hx Hospitalization Yes: STENT PLACEMENT 10/11/24 08:31 Any Problems With Anesthesia No 10/11/24 08:31 Cholinesterase deficiency No 10/11/24 08:31 You/Your Family Experience No 10/11/24 08:31 fever (hyperthermia) with Relationship Recent Exposure to Contagious No 09/24/24 09:36 Disease Does patient have nerve No 10/11/24 08:31 stimulator Patient instructed to have device shut off --Does patient have Pacemaker or ICD? When Was Last Pacemaker Check QUESTION #4 FULL TEXT: You/Your Family Experience fever (hyperthermia) with Anesthesia Last Oral Intake Last Oral intake: Last Oral Intake NPO since Meds taken in AM with sips of water? Meds patient instructed to take am of surgery PONV PONV - biomedical repair technician: PONV - biomedical repair technician Female No 10/11/24 08:31 HX of Motion Sickness No 10/11/24 08:31 HX of N/V After Surgery No 10/11/24 08:31 Non-Smoker Yes 10/11/24 08:31 Duration of Surgery greater Yes 10/11/24 08:31 than 60 minutes Number of Risk Factors 2 10/11/24 08:31 PONV Score Moderate Risk 10/11/24 08:31 Height & Weight Height & Weight: Anesthesia: Height & Weight Height 5 ft 9 in 09/24/24 10:25 Respiratory Assessment Respiratory Assessment - biomedical repair technician: Respiratory Tract Infection Hx - biomedical repair technician Hx Respiratory Tract Infection No 10/11/24 08:31 STOP Sleep Apnea STOP Sleep Apnea - biomedical repair technician: STOP Sleep Apnea - biomedical repair technician Hx Hypertension Yes: ON MEDS 10/11/24 08:31 Hx Sleep Apnea No 10/11/24 08:31 CPAP No 12/01/21 16:40 BIPAP No 12/01/21 14:58 Do you snore loudly (louder No 10/11/24 08:31 than talking or can be heard Do you often feel tired/ No 10/11/24 08:31 fatigued/ sleepy during daytime? Has anyone observed you stop No 10/11/24 08:31 breathing during sleep? STOP Results Negative 10/11/24 08:31 QUESTION #5 FULL TEXT : Do you snore loudly (louder than talking or can be heard through closed doors)? Tobacco Use History Tobacco Use History - biomedical repair technician: Tobacco Use History - biomedical repair technician Tobacco Use Smoking Status Never smoker 10/11/24 08:31 Hx Tobacco Use No 10/11/24 08:31 Years Smoking Packs Smoked per Day Smoking Cessation Date was within the last 15 years Hx Smoking Cessation Date Hx Smoking Cessation Counseling Hematologic Medial History Hematologic Hx - biomedical repair technician: Hematologic Medical Hx - inspecting supervisor Hx of Blood Transfusion No 10/11/24 08:31 Hx of Transfusion in last 3 No 10/11/24 08:31 Months Date of Last Transfusion (if within last 3 months) Ever experience any problems No 10/11/24 08:31 with transfusion(s)? Specify any problems Hx of Preganancy in last 3 N/A 10/11/24 08:31 Months Nurse Filling Out Transfusion JZOLLINGE 10/11/24 08:31 & Questions: Date: 10/11/24 10/11/24 08:31 Time: 08:35 10/11/24 08:31 Patient unable to answer at this time (ie. confused, unrespo /Reproduction History /Reproductive History - biomedical repair technician: /Reproductive Hx- biomedical repair technician Hx Now No 10/11/24 08:31 Gestational Age (in weeks): EDC: Hx Hx Para Hx Section SAB No 10/11/24 08:31 Active Medications Active Medications: Current Medications Generic Name Dose Route Start Last Admin Trade Name Freq PRN Reason Stop Dose Admin Cefazolin Sodium 2 gm/ N/A 20 mls @ 400 mls/hr 10/19/24 13:15 IV 10/19/24 13:17 PREOP ONE [facility] Medical History Loss of hearing Walker as ambulation aid High cholesterol History of stress test Wears glasses History of MRSA infection Non-smoker Physical debility Debility Closed head injury Frequent falls Sciatica Kidney stones Decreased hearing Hyperlipemia Hypertension Chronic back pain Arthritis Type 2 diabetes mellitus Home Medications ?Medication ?Instructions ?Recorded ?Last Taken ?Type atorvastatin 40 mg tablet 40 mg PO QHS CHOLESTEROL 11/07/18 11/21/21 History lisinopril 5 mg tablet 5 mg PO DAILY blood pressure 04/25/19 11/22/21 History metformin 500 mg tablet 500 mg PO BID diabetes 02/03/20 11/22/21 History acetaminophen 500 mg tablet 1,000 mg (2 x 500 mg) PO Q6H PRN 12/03/21 Unknown Rx PRN Pain Score 1-3 #0 tabs gabapentin 100 mg capsule 100 mg PO TIDCM 30 days #90 caps 12/03/21 Unknown Rx tamsulosin 0.4 mg capsule 0.4 mg PO DAILY@1730 14 days #14 09/25/24 Unknown Rx caps Allergy/AdvReac Type Severity Reaction Status Date / Time oxycodone HCl (From Percocet) Allergy Intermediate Other Verified 10/11/24 08:19 Family History Father Mental disorder Heart disease Mother Heart disease High cholesterol Surgical History History of kidney stones History of cervical spinal surgery Social History household members: none Smoking Status: Never smoker alcohol intake: never substance use type: does not use what type of physical activity do you participate in: walking frequency: daily Review of Systems (Anesthesia) ROS Narrative System reviewed and no additional complaints, except as documented.
[2024-10-19] MEDS: 0.9% Normal Saline (1000mL) 1,000 ML 15 ML IV (11:58)
[2024-10-19] MEDS: Cefazolin 2 GM in Syringe IV (13:20)
--- NOTE | 2024-10-19 13:54 | HP.PCM_ITS ---
HPI - General General Date of Service: 10/19/24 Chief Complaint: Left kidney stone HPI Narrative AARON GOMEZ, is a 74 M who presents for treatment with left kidney stone with shockwave lithotripsy currently has a stent in place [facility] Medical History Loss of hearing Walker as ambulation aid High cholesterol History of stress test Wears glasses History of MRSA infection Non-smoker Physical debility Debility Closed head injury Frequent falls Sciatica Kidney stones Decreased hearing Hyperlipemia Hypertension Chronic back pain Arthritis Type 2 diabetes mellitus Home Medications ?Medication ?Instructions ?Recorded ?Last Taken ?Type atorvastatin 40 mg tablet 40 mg PO QHS CHOLESTEROL 09/2610/18/24 History lisinopril 5 mg tablet 5 mg PO DAILY blood pressure 04/25/19 10/18/24 History metformin 500 mg tablet 500 mg PO BID diabetes 02/0210/18/24 History acetaminophen 500 mg tablet 1,000 mg (2 x 500 mg) PO Q 6H PRN 12/03/21 10/18/24 Rx PRN Pain Score 1-3 #0 tabs gabapentin 100 mg capsule 100 mg PO TIDCM 30 days #90 caps 12/03/21 10/18/24 Rx tamsulosin 0.4 mg capsule 0.4 mg PO DAILY@1730 14 days #14 09/25/24 10/18/24 Rx caps Allergy/AdvReac Type Severity Reaction Status Date / Time oxycodone HCl (From Percocet) Allergy Intermediate Other Verified 10/19/24 11:59 Family History Father Mental disorder Heart disease Mother Heart disease High cholesterol Surgical History History of kidney stones History of cervical spinal surgery Social History household members: none Smoking Status: Never smoker alcohol intake: never substance use type: does not use what type of physical activity do you participate in: walking frequency: daily Vital Signs Vital Signs Vital Signs: 10/19/24 11:51 10/19/24 11:51 Temperature 98.2 F Temperature Source Temporal Pulse Rate 83 Respiratory Rate 16 Respiratory Pattern Normal Blood Pressure 151/70 H Blood Pressure Mean 97 Blood Pressure Source Monitor Blood Pressure Position Semi-Fowlers Blood Pressure Location Left Arm Pulse Ox 98 Oxygen Delivery Method Room Air Weight Weight: 95.3 kg Body Mass Index (BMI) 31.0 Results Imaging Radiology Impression KUB X-Ray 10/19/24 11:05 IMPRESSION: 1. Interval placement of left nephroureteral stent with likely migration of the previous 12 mm left ureteral calculus into the bladder. 2. Additional description as above. Reading Location: [id number]
--- NOTE | 2024-10-19 13:55 | OP.PCM_ITS ---
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 In the preoperative area and x-ray was done to confirm the location of the stone. The x-ray was reviewed and the stone location was reviewed. In the preoperative setting I spoke with the patient regarding the treatment of the stone how the treatment would be conducted and the expectations after surgery. The patient understands there is a risk of bleeding and infection. Also discussed the very rare risk of hematoma or damage to the kidney. We also discussed the risk that the shockwave machine will fail to break the stone adequately and that the patient may need other surgical procedures. I also discussed the possibility that the patient may need a stent after the procedure. After reviewing the procedure with the patient, the patient is signed the consent form all the patient's questions were addressed and was taken back to the operating room for treatment of a kidney stone. Patient was taken back to the operating room, the patient was identified by the nursing staff, I identified the side of the treatment and the patient side of treatment had been marked by my initials. The patient underwent general anesthetic and was placed supine on the lithotripter table. I then used fluoroscopy to identify the stone on the left side next to stent in the proximal ureter. I then positioned the patient under the lithotripter and I used triangulation technique to identify the location of the stone and then I made sure that the stone was engaged in the F2 focal point of F2 Donier lithoprior machine. Once the patient was positioned appropriately and the stone was identified and placed in the F2 focal point of the lithotripter machine I then proceeded with shockwave lithotripsy. In the beginning the shockwave was delivered at a rate of 90 shocks per minute, anesthesia monitored the EKG for any ectopy. The power was slowly increased to 5 kV and subsequently at the 7 kV. I then proceeded with the treatment with shock wave therapy and around during the treatment to make sure the stone stayed in the F2 focal point during the entire treatment and after 3000 shockwaves were delivered to the stone under fluoroscopic guidance the treatment was completed. The patient was given instructions to call the office to make an a follow-up appointment with an xray to evaluate the success of the treatment, pateint understands that its possible the stones may need another procedure.At this point the patient's anesthetic was reversed patient was extubated and taken back to the PACU in stable condition. Surgical Findings: stone in proximal ureter Complications Complications: No Admit VTE Documentation VTE Present on Admission: No VTE Mechan Device Prophylaxis: SCD's VTE Pharm Prophylaxis ordered?: No
--- NOTE | 2024-10-19 13:55 | PCM.DC ---
Discharge Instructions Diet Discharge Diet: No restrictions DC O2, CPAP, BIPAP needs Home O2 Discharge instructions: No Dressing / Incision Discharge Activity: Return to Normal Activity and May Not Drive (while taking narcotic pain medications.) Dressing / Incision Call your doctor if you observe: Fever of 101 or Higher Follow Up Care Please Follow Up With: Jose Manuel Pham MD When: Call [phone] for an appointment Test Results: Test results from this visit will be discussed in further detail at your follow-up appointment, if applicable. Discharge Plan Admission Primary Reason for Your Visit: left kidney stone Attending Provider: Jose Manuel Pham Primary Care Provider: Mitch Mcwilliams Chi Instructions Print Language: Sami Discharge Orders/Prescriptions Prescriptions: Continued atorvastatin 40 MG tablet 40 mg PO QHS lisinopril 5 MG tablet 5 mg PO DAILY metformin 500 MG tablet 500 mg PO BID acetaminophen 500 mg Tablet 1,000 mg PO Q6H PRN PRN (Reason: Pain Score 1-3) Qty: 0 0RF gabapentin 100 mg Capsule 100 mg PO TIDCM 30 Days Qty: 90 0RF tamsulosin 0.4 mg Capsule 0.4 mg PO DAILY@1730 14 Days Qty: 14 0RF Other Ambulatory Orders: Abdomen Single View (Routine) Timeframe: [id number] Facility: [facility] - Location: [facility] Ordered By: Dr. Jose Manuel Pham Referrals / Follow Up: Jose Manuel Pham MD [Med Staff - Active Staff] - Mitch Mcwilliams Chi, MD [Primary Care Provider] - Disposition Disposition (needs filled in before D/C Order can be placed): Home, Self Care
[2024-10-19 14:17] LABS: Bedside Glucose 127 mg/dL (74-106)
--- NOTE | 2024-10-19 14:31 | PCM.POST.ANE ---
Anesthesia: Postop Eval I Current Vital Signs Temperature: 97.4 F Pulse Rate: 87 Blood Pressure: 162/92 Respiratory Rate: 20 Pulse Ox: 95 Assessment Airway patent: Yes Spontaneous unlabored respirations: Yes nausea: No Vomiting: No Anesthesia Complication: No Fluid Hydration Crystalloid volume administer (ml): 1,000 Total IV fluid infused: 1,000 Progress Note Anesthesia document: Postop Eval 1 completed: Yes
[2024-10-19] MEDS: Ketorolac 15 MG/ML Vial IV (14:56)
--- NOTE | 2024-10-19 15:20 | POSTOPAN2_ITS ---
Anesthesia Postop Eval I Sum Postop Eval Completion status Anesthesia document: Postop Eval 1 completed: Yes Anesthesia Postop Eval I Summary Anesthesia Postop Eval I Summary: Anesthesia Postop Eval I: Assessment Summary Airway patent Yes 10/19/24 14:31 [email or web address] Spontaneous unlabored Yes 10/19/24 14:31 [email or web address] respirations Mental status nausea No 10/19/24 14:31 [email or web address] [email or web address] Vomiting No 10/19/24 14:31 [email or web address] Anesthesia Postop Eval I: Fluid Summary Crystalloid volume administer 1,000 10/19/24 14:31 [email or web address] (ml) Colloids volume administered ( ml) Blood Product volume administered (ml) Total IV fluid infused 1,000 10/19/24 14:31 [email or web address] Anesthesia Postop Eval I: Summary Notes Anesthesia Complication No 10/19/24 14:31 [email or web address] Anesthesia Complication Comment: Post-operative progress note Anesthesia: Postop Eval II Evaluation Mental status: Awake Pain Level: 0 nausea: No Vomiting: No
--- NOTE | 2024-10-19 15:20 | PCM.POSTANE2 ---
Anesthesia Postop Eval I Sum Postop Eval Completion status Anesthesia document: Postop Eval 1 completed: Yes Anesthesia Postop Eval I Summary Anesthesia Postop Eval I Summary: Anesthesia Postop Eval I: Assessment Summary Airway patent Yes 10/19/24 14:31 [email or web address] Spontaneous unlabored Yes 10/19/24 14:31 [email or web address] [email or web address] respirations Mental status nausea No 10/19/24 14:31 [email or web address] [email or web address] Vomiting No 10/19/24 14:31 [email or web address] Anesthesia Postop Eval I: Fluid Summary Crystalloid volume administer 1,000 10/19/24 14:31 [email or web address] (ml) Colloids volume administered ( ml) Blood Product volume administered (ml) Total IV fluid infused 1,000 10/19/24 14:31 [email or web address] Anesthesia Postop Eval I: Summary Notes Anesthesia Complication No 10/19/24 14:31 [email or web address] Anesthesia Complication Comment: Post-operative progress note Anesthesia: Postop Eval II Evaluation Mental status: Awake Pain Level: 0 nausea: No Vomiting: No
== END 2024-10-19 16:00 | disposition home or self-care (01) ==
LOC: SDC 11:00 → AC 11:02
PROVIDERS: PCP Family Medicine Geriatric Medicine; Referring Provider Urology; Visit Provider Urology
PROC: (CPT 50590; principal; 2024-10-19 13:05)
DX: N20.2 Calculus of kidney with calculus of ureter (principal); E11.9 Type 2 diabetes mellitus without complications; E78.00 Pure hypercholesterolemia, unspecified; I10 Essential (primary) hypertension; Z98.890 Other specified postprocedural states; Z96.0 Presence of urogenital implants; Z79.899 Other long term (current) drug therapy
CPT/HCPCS: 50590; 00873; 74018; 82962; J2405

== ENCOUNTER 2024-11-04 16:31 | Inpatient (IN) | payer MEDICARE, OTHER, SELFPAY ==
[2024-11-04] VITALS (10 sets, daily range): BP systolic 107–136; BP diastolic 65–82; PULSE 88–105; RESP 16–22; TEMP 37.4–39.1; O2SAT 92–96; BMI 46.7; BMI 31.2
--- NOTE | 2024-11-04 17:07 | EKG12_ITS ---
Test Reason : REPEAT Blood Pressure : */* mmHG Vent. Rate : 95 BPM Atrial Rate : 95 BPM P-R Int : 200 ms QRS Dur : 114 ms QT Int : 372 ms P-R-T Axes : * -3 -6 degrees QTcB Int : 467 ms Sinus rhythm with Premature supraventricular complexes and with occasional Premature ventricular complexes Right bundle branch block Inferior infarct , age undetermined Abnormal ECG Confirmed by MICHAEL VILLA, HOLLIE ([id number]), magazine editor MUSA BATISTA ([id number]) on 11/06/2024 8:26:10 AM Referred By: Confirmed By: HOLLIE RODRIGUEZ MD
--- NOTE | 2024-11-04 17:07 | CT_ITS ---
PROCEDURE: BRAIN/HEAD WITHOUT CONTRAST 11/04/2024 REASON FOR EXAM: FALL, HEAD INJURY TECHNIQUE: Contiguous axial scans of 3.75 mm slice thicknesses with sagittal and coronal reconstruction images. One or more dose reduction techniques were utilized (e.g., automated exposure control, adjustment of mA and/or kv according to patient size, use of iterative reconstruction technique). RADIATION DOSE SUMMARY: CTDlvol: 76.79 mGy DLP: 1366.51 mGycm COMPARISON: MRI brain dated 07/19/2024 FINDINGS: Cerebrum: No intraparenchymal hemorrhage. No abnormal areas of encephalomalacia. No mass effect or midline shift. Nava-white matter differentiation is normal. Ventricles and cisterns: Appropriate size for patient's age. Age-appropriate cerebral cortical atrophy. Extra-axial fluid: Unremarkable. Posterior fossa: Unremarkable cerebellum. No abnormalities involving the brainstem. Paranasal sinuses: Mucoperiosteal thickening in the ethmoids and left maxillary sinus. Vasculature: Mild atherosclerotic calcific disease. Mastoid air cells: Normal. Calvarium: Unremarkable. Soft tissues: Unremarkable. CT/Brain/Head without Contrast IMPRESSION: No acute intracranial findings. Age-appropriate senescent change. Mild inflammatory changes in the ethmoid and left sphenoid sinus. Reading Location: [facility]
--- NOTE | 2024-11-04 17:07 | CT_ITS ---
PROCEDURE: SPINE CERVICAL WITHOUT CONTRAS 11/04/2024 REASON FOR EXAM: FALL TECHNIQUE: Contiguous axial scans of 1.25 mm slice thicknesses without intravenous contrast. Sagittal and coronal reconstruction images were also obtained. One or more dose reduction techniques were used (e.g., Automated exposure control, adjustment of the mA and/or kV according to patient size, use of iterative reconstruction technique). RADIATION DOSE SUMMARY: CTDlvol: 31.80 mGy DLP: 553.53 mGycm COMPARISON: CT cervical dated 07/16/2019. MRI cervical dated 07/19/2024. FINDINGS: Vertebrae: C3 through C7 dorsal fusion with surgical instrumentation. No fractures. C1-C2: Atlantoaxial articulation is maintained. Degenerative changes. Alignment: Straightening of the cervical lordosis most likely due to previous dorsal fusion Discs: Multilevel disc space narrowing. Foramens: Multilevel bilateral foraminal narrowing. Facets: Multilevel arthropathy. Soft tissues: Prevertebral soft tissues are normal. CT/Spine Cervical without Contras IMPRESSION: Status post dorsal fusion with instrumentation, C3 through C7. No acute fractures. Multilevel degenerative disc disease. Multilevel foraminal narrowing and facet arthropathy. Reading Location: [facility]
--- NOTE | 2024-11-04 17:07 | CT_ITS ---
PROCEDURE: CT CHEST, ABD, PELVIS WO CONT 11/04/2024 REASON FOR EXAM: RLQ ABDOMINAL PAIN, HX KIDNEY STONES, FALL TECHNIQUE: Chest, abdomen and pelvis CT without intravenous contrast. . Contiguous axial scans of mm slice thicknesses. Sagittal and coronal reconstruction images were obtained. One or more dose reduction techniques were used (e.g., automated exposure control, adjustment of mA and/or kv according to patient size, use of iterative reconstruction technique). COMPARISON: None. FINDINGS: CT CHEST: Lungs and Airways: The lungs are normally expanded and clear. Parenchymal scarring and or subsegmental atelectatic changes in the lower lobes. Pleura: No pleural effusion. No pneumothorax. Heart: Normal heart size. Pericardium: No pericardial thickening or effusion. Coronary arteries: Extensive coronary artery calcifications. Thoracic Aorta: No thoracic aortic aneurysm or dissection. Ascending aorta measures 4.1 cm in diameter. Pulmonary Vessels: Pulmonary artery measures 3.3 cm in diameter centrally. Mediastinum: No mediastinal hilar or axillary lymphadenopathy. Thyroid:No nodules.. Bones: Multilevel spondylosis and degenerative disc disease. CT ABDOMEN / PELVIS: Liver: Normal-size and attenuation. No masses. Gallbladder: A few small radiopaque densities in the neck, axial image 43. Spleen: Unremarkable. Pancreas: Unremarkable. Adrenals: Unremarkable. Kidneys: Left hydronephrosis. A 4 mm calculus in the distal left ureter, axial image 91. Several calcifications in the pelvic left ureter just proximal to the ureterovesical junction, largest measuring 6 mm on axial image 106. Multiple small intrarenal calculi, 2-3 mm on the left. At least 2 intrarenal calcifications in the right lower pole measuring 7 mm, axial image 61, coronal image 90. Left perirenal fat stranding. Bladder: Unremarkable. Reproductive Organs: Small prostate gland with calcifications. Right hydrocele. Bowel: Diverticulosis without signs of diverticulitis. Appendix: Unremarkable. Lymph nodes: No pathologic adenopathy. Vasculature: Generalize aortoiliac atherosclerotic calcific disease. Peritoneum / Retroperitoneum: No free fluid. No free air. Anterior abdominal wall: Bilateral fat containing inguinal hernias. Bones: Multilevel spondylosis. Multilevel degenerative disc disease. CT/CT Chest, Abd, Pelvis WO Cont IMPRESSION: 1. Parenchymal scarring in the lung bases. 2. Severe coronary artery calcifications. 3. Suspicion of cholelithiasis. 4. Left obstructive uropathy with moderate hydroureteronephrosis. Associated left perirenal fat stranding. 5. Bilateral nonobstructive nephrolithiasis. 6. Chronic prostatitis. 7. Right hydrocele. 8. Diverticulosis. 9. Bilateral fat containing inguinal hernias. 10. Other nonacute findings detailed above. Reading Location: [facility]
[2024-11-04] MEDS: Ondansetron 4 MG/2 ML Vial IV (17:25)
[2024-11-04] MEDS: Morphine 2 MG/ML Syringe IV ×2 (17:26→21:34)
[2024-11-04] MEDS: 0.9% Normal Saline (1000mL) 1,000 ML 999 ML IV (17:28)
[2024-11-04 18:00] LABS: CPK Total, Creatine Kinase 2755 U/L (24-195)
--- NOTE | 2024-11-04 18:00 | RAD_ITS ---
PROCEDURE: HIP, UNI W/ PELVIS 2-3 VIEWS 11/04/2024 REASON FOR EXAM: R HIP PAIN, FALL TECHNIQUE: AP pelvis and two (2) views of the right hip. COMPARISON: CT dated 11/04/2024. FINDINGS: Bones: Severe narrowing of the right hip joint with sclerosis involving the acetabulum and femoral head. Mild degenerative cystic changes are also noted. No fractures are demonstrated. Hypertrophic spurring involving the lesser trochanter. Hypertrophic spurring at the superior lip of the acetabulum. Cystic changes bilaterally at the symphysis pubis. Joints: No dislocations or subluxations Soft tissues: Other: Atherosclerotic calcific disease. RAD/HIP, UNI W/ Pelvis 2-3 Views IMPRESSION: Severe osteoarthritis involving the right hip. Reading Location: [facility]
[2024-11-04 18:04] LABS: ALB/GLOB Ratio 1.3 RATIO (0.9-2.4); AST(SGOT) 109 U/L (<=37); Alanine Aminotransfer ALT/SGPT 35 U/L (<=46); Albumin, Serum 3.6 g/dL (3.4-4.8); Alkaline Phosphatase 54 U/L (40-129); Anion Gap 13 (5-15); BUN 35 mg/dL (4-19); BUN/Creat Ratio 20.9 RATIO (10-20); Calcium,Total 8.7 mg/dL (7.6-11.0); Carbon Dioxide 18.3 mmol/L (21.0-32.0); Chloride 105 mmol/L (98-108); Creatinine, Serum 1.67 mg/dL (0.70-1.20); EST Glomerular Filtration Rate 42 (>60); Estimated Creatinine Clearance 36.85 ml/min (50-250); Globulin 2.8 g/dL (2.2-4.2); Glucose 115 mg/dL (70-99); Lipase 14 U/L (13-75); Potassium 4.3 mmol/L (3.3-5.1); Protein, Total 6.5 g/dL (5.9-8.4); Sodium Level 136 mmol/L (133-145); Total Bilirubin 0.98 mg/dL (0.00-1.30)
[2024-11-04 18:07] LABS: Absolute Neutrophil Count 9.8 X10^3/uL (2.0-7.7); Basophil# 0.01 X10^3/uL; Basophil% 0.1 % (0-1); Hematocrit 33.5 % (40-54); Hemoglobin 11.3 g/dL (13.0-16.5); Lymphocyte % 3.6 % (19-41); Mean Corp Hgb Conc 33.7 g/dL (32-36); Mean Corpuscular Hgb 32.7 pg (27.0-32.0); Mean Corpuscular Volume 96.8 fL (80-94); Mean Platelet Vol. 9.5 fl (6.2-12.0); Monocyte# 0.65 X10^3/uL; Monocyte% 5.9 % (0-10); NRBC Flagged by Analyzer 0 % (0-5); Neutrophil # 9.83 X10^3/uL (2.7-7.7); Neutrophil % 89.7 % (47-70); POSITIVE DIFFERENTIAL YES; Platelet Count 221 K/mm3 (150-450); RBC Distribution Width CV 12.7 % (11.6-14.6); Red Blood Count 3.46 M/mm3 (4.6-6.2)
--- NOTE | 2024-11-04 18:11 | EKG12_ITS ---
Test Reason : FALL Blood Pressure : */* mmHG Vent. Rate : 103 BPM Atrial Rate : * BPM P-R Int : * ms QRS Dur : 114 ms QT Int : 362 ms P-R-T Axes : * 0 -8 degrees QTcB Int : 474 ms Atrial fibrillation with rapid ventricular response Right bundle branch block Possible Inferior infarct , age undetermined Abnormal ECG Confirmed by MICHAEL VILLA, HOLLIE ([id number]), subeditor MUSA BATISTA ([id number]) on 11/06/2024 8:26:25 AM Referred By: Confirmed By: HOLLIE RODRIGUEZ MD
--- NOTE | 2024-11-04 18:18 | EDS_ITS ---
HPI <CADY Baig - Last Filed: 11/04/24 20:27> HPI - Fall History of Present Illness Chief Complaint: Fall Narrative Narrative: Patient presenting today with his family after his daughter found him lying on the floor this afternoon. She came to visit him yesterday, he lives at home by himself. He was complaining of left-sided abdominal pain reporting that it felt like he had a kidney stone again. He does have a history of kidney stones and just had a R sided stent removed over a week ago. His daughter got him into the recliner and set his walker near him as well as his phone. Today she was not able to get a hold of him and when she came to check on him around 3 PM and he was lying on the ground. He reports that he tried to get up last night but fell to the ground and was not able to get back up. He is not sure if he hit his head or lost consciousness, he is not on any blood thinners. He is alert and oriented x 4 but daughter reports that he seems somewhat confused. He reports both left and right-sided abdominal pain that has somewhat improved and right sided hip pain. He denies fevers, chills, chest pain, and vomiting. [facility] <CADY Baig - Last Filed: 11/04/24 20:27> [facility] Medical History Loss of hearing Walker as ambulation aid High cholesterol History of stress test Wears glasses History of MRSA infection Non-smoker Physical debility Debility Closed head injury Frequent falls Sciatica Kidney stones Decreased hearing Hyperlipemia Hypertension Chronic back pain Arthritis Type 2 diabetes mellitus Home Medications ?Medication ?Instructions ?Recorded ?Last Taken ?Type atorvastatin 40 mg tablet 40 mg PO QHS CHOLESTEROL 09/2610/18/24 History lisinopril 5 mg tablet 5 mg PO DAILY blood pressure 04/25/19 10/18/24 History metformin 500 mg tablet 500 mg PO BID diabetes 02/0210/18/24 History acetaminophen 500 mg tablet 1,000 mg (2 x 500 mg) PO Q 6H PRN 12/03/21 10/18/24 Rx PRN Pain Score 1-3 #0 tabs gabapentin 100 mg capsule 100 mg PO TIDCM pain 30 days #90 12/03/21 10/18/24 Rx caps tamsulosin 0.4 mg capsule 0.4 mg PO DAILY@1730 bph 14 days 09/25/24 10/18/24 Rx #14 caps Allergy/AdvReac Type Severity Reaction Status Date / Time oxycodone HCl (From Percocet) Allergy Intermediate Other Verified 10/19/24 11:59 Family History Father Mental disorder Heart disease Mother Heart disease High cholesterol Surgical History History of kidney stones History of cervical spinal surgery Social History household members: none Smoking Status: Never smoker alcohol intake: never substance use type: does not use what type of physical activity do you participate in: walking frequency: daily ROS <CADY Baig - Last Filed: 11/04/24 20:27> ROS ED Constitutional Constitutional ED: Denies chills or fever(s) Cardiovascular Cardiovascular: Denies chest pain Respiratory/Chest Respiratory/Chest: Denies dyspnea Gastrointestinal Gastrointestinal: Reports abdominal pain and nausea; Denies diarrhea or vomiting Genitourinary Genitourinary ED: Denies dysuria, hematuria or urinary urgency Musculoskeletal Musculoskeletal: Reports arthralgias; Denies neck pain Integumentary Denies Abrasions Neurologic Neurologic: Reports weakness; Denies paresthesias EXAM <CADY Baig - Last Filed: 11/04/24 20:27> Physical Exam Const Vital Signs: 11/04/24 16:33 11/04/24 16:40 11/04/24 16:47 Temperature 99.7 F H Temperature Source Oral Pulse Rate 91 89 Respiratory Rate 18 16 Respiratory Effort Normal Respiratory Depth Normal Respiratory Pattern Normal Blood Pressure 119/72 Blood Pressure Mean 87 Pulse Ox 95 96 Oxygen Delivery Method Room Air Room Air Room Air Oxygen Flow Rate (L/min) 11/04/24 17:32 11/04/24 18:53 11/04/24 19:00 Temperature Temperature Source Pulse Rate 88 105 H Respiratory Rate 20 H 20 H Respiratory Effort Respiratory Depth Respiratory Pattern Blood Pressure 128/82 H 136/79 H 113/67 Blood Pressure Mean 97 98 82 Pulse Ox 92 96 Oxygen Delivery Method Nasal Cannula Room Air Oxygen Flow Rate (L/min) 2 11/04/24 20:00 11/04/24 20:20 11/04/24 20:22 Temperature 102.3 F H 102.3 F H Temperature Source Axillary Pulse Rate 99 94 88 Respiratory Rate 22 H 20 H 18 Respiratory Effort Respiratory Depth Respiratory Pattern Blood Pressure 119/65 121/65 H 121/65 H Blood Pressure Mean 83 83 83 Pulse Ox 95 96 96 Oxygen Delivery Method Room Air Room Air Oxygen Flow Rate (L/min) 0 Positive well nourished, well developed and no apparent distress General Appearance ED: well developed HEENT Reports normocephalic and head/scalp atraumatic Mouth ED: Yes moist mucous membranes normal Eyes PERRL and EOMs intact bilaterally Neck full ROM and supple Chest Wall inspection of chest normal Resp normal respiratory effort and clear to auscultation bilaterally Cardio regular rate and regular rhythm GI soft to palpation, non-tender, non-distended and no masses Back/Spine normal ROM and normal to inspection Extremity normal to inspection and full ROM Extremity Narrative: Positive logroll on the right with pain to palpation to the right greater trochanter. Right DP pulse audible with Doppler. Left DP pulse 2+. Neuro oriented x3, CN's II-XII intact bilaterally, moves all extremities, no focal motor deficits and no sensory deficits noted Sensorium / Orientation: awake and alert Psych mental status grossly normal and thought process normal Skin no rashes or lesions noted and no wounds <Dr. Bryant Zavala, DO - Last Filed: 11/04/24 23:16> Physical Exam Const Vital Signs: 11/04/24 16:33 11/04/24 16:40 11/04/24 16:47 Temperature 99.7 F H Temperature Source Oral Pulse Rate 91 89 Respiratory Rate 18 16 Respiratory Effort Normal Respiratory Depth Normal Respiratory Pattern Normal Blood Pressure 119/72 Blood Pressure Mean 87 Pulse Ox 95 96 Oxygen Delivery Method Room Air Room Air Room Air Oxygen Flow Rate (L/min) 11/04/24 17:32 11/04/24 18:53 11/04/24 19:00 Temperature Temperature Source Pulse Rate 88 105 H Respiratory Rate 20 H 20 H Respiratory Effort Respiratory Depth Respiratory Pattern Blood Pressure 128/82 H 136/79 H 113/67 Blood Pressure Mean 97 98 82 Pulse Ox 92 96 Oxygen Delivery Method Nasal Cannula Room Air Oxygen Flow Rate (L/min) 2 11/04/24 20:00 11/04/24 20:20 11/04/24 20:22 Temperature 102.3 F H 102.3 F H Temperature Source Axillary Pulse Rate 99 94 88 Respiratory Rate 22 H 20 H 18 Respiratory Effort Respiratory Depth Respiratory Pattern Blood Pressure 119/65 121/65 H 121/65 H Blood Pressure Mean 83 83 83 Pulse Ox 95 96 96 Oxygen Delivery Method Room Air Room Air Oxygen Flow Rate (L/min) 0 [facility] <CADY Baig - Last Filed: 11/04/24 20:27> [facility] Narrative Medical decision making narrative: Patient presenting today after being found on the ground by his daughter, she last checked on him yesterday and he reports that he fell last night and was unable to get up. He reports pain to his right hip and has had abdominal pain since yesterday with a history of kidney stones. Daughter reports he seems somewhat confused, he is alert and oriented x 4 for me. Labs were obtained, CBC shows an H&H of 11.3 and 33.5, this is improved from previous labs. His creatinine is 1.67, BUN 35, this is also around baseline. CK is elevated here at 2755 consistent with rhabdomyolysis. Patient given IV fluids. Right hip x- ray obtained to assess for fracture and is negative. CT scan of the chest, abdomen, and pelvis obtained to assess for infiltrate and kidney stones and shows 2 left-sided ureteral stones, there is a 4 mm stone and a [address] scan of the brain obtained to assess for intracranial bleed and is negative, cervical spine CT negative for fracture. UA is consistent with a UTI, his urine was cultured and he was given a dose of Rocephin here. I did consult Dr. Pham, his urologist. He would like him to be n.p.o. so he can possibly place a stent tomorrow. I will speak with the hospitalist regarding admission. Patient admitted in stable condition. The nurse did inform me at 20:22 that he developed a fever, he was ordered Tylenol. Initially he did not meet SIRS criteria but blood cultures were added on. Lab Data Attestation: I reviewed the patient's lab results. Labs: Laboratory Results - last 24 hr 11/04/24 11/04/24 17:20 18:50 WBC 11.0 RBC 3.46 L Hgb 11.3 L Hct 33.5 L MCV 96.8 H MCH 32.7 H MCHC 33.7 RDW Std Deviation 44.0 H RDW Coeff of Javid 12.7 Plt Count 221 MPV 9.5 Immature Gran % (Auto) 0.700 Neut % (Auto) 89.7 H Lymph % (Auto) 3.6 L Coleman % (Auto) 5.9 Eos % (Auto) 0.0 Baso % (Auto) 0.1 Absolute Neuts (auto) 9.8 H Absolute Lymphs (auto) 0.40 L Nucleated RBC % 0 Sodium 136 Potassium 4.3 Chloride 105 Carbon Dioxide 18.3 L Anion Gap 13 BUN 35 H Creatinine 1.67 H Estim Creat Clear Calc 36.85 L Est GFR (MDRD) Non-Af 42 L BUN/Creatinine Ratio 20.9 H Glucose 115 H Hemoglobin A1c 6.6 Calcium 8.7 Magnesium 1.5 Total Bilirubin 0.98 AST 109 H ALT 35 Alkaline Phosphatase 54 Total Creatine Kinase 2755 H Total Protein 6.5 Albumin 3.6 Globulin 2.8 Albumin/Globulin Ratio 1.3 Lipase 14 Vitamin B12 483 TSH 0.420 Urine Color Yellow Urine Clarity Sl. Cloudy Urine pH 5.0 Ur Specific [place] 1.015 Urine Protein 100 H Urine Glucose (UA) Normal Urine Ketones Negative Urine Occult Blood 250 H Urine Nitrite Negative Urine Bilirubin Negative Urine Urobilinogen Normal Ur Leukocyte Esterase 500 H Urine RBC 10-25 SEEN Urine WBC 10-25 SEEN Ur Squamous Epith Cells 0 SEEN Urine Bacteria 3+ Fine Granular Casts 0-5 SEEN Urine Mucus 0 SEEN Radiography X-Ray: Read by ED Physician Diagnostic Testing: Clinical Impression(s) from Imaging Studies Brain CT 11/04/24 17:07 IMPRESSION: No acute intracranial findings. Age-appropriate senescent change. Mild inflammatory changes in the ethmoid and left sphenoid sinus. Reading Location: [facility] Cervical Spine CT 11/04/24 17:07 IMPRESSION: Status post dorsal fusion with instrumentation, C3 through C7. No acute fractures. Multilevel degenerative disc disease. Multilevel foraminal narrowing and facet arthropathy. Reading Location: [facility] Chest/Abdomen/Pelvis CT 11/04/24 17:07 IMPRESSION: 1. Parenchymal scarring in the lung bases. 2. Severe coronary artery calcifications. 3. Suspicion of cholelithiasis. 4. Left obstructive uropathy with moderate hydroureteronephrosis. Associated left perirenal fat stranding. 5. Bilateral nonobstructive nephrolithiasis. 6. Chronic prostatitis. 7. Right hydrocele. 8. Diverticulosis. 9. Bilateral fat containing inguinal hernias. 10. Other nonacute findings detailed above. Reading Location: [facility] Hip/Pelvis X-Ray 11/04/24 18:00 IMPRESSION: Severe osteoarthritis involving the right hip. Reading Location: [facility] <Dr. Bryant Zavala, DO - Last Filed: 11/04/24 23:16> [facility] Lab Data Labs: Laboratory Results - last 24 hr 11/04/24 11/04/24 17:20 18:50 WBC 11.0 RBC 3.46 L Hgb 11.3 L Hct 33.5 L MCV 96.8 H MCH 32.7 H MCHC 33.7 RDW Std Deviation 44.0 H RDW Coeff of Javid 12.7 Plt Count 221 MPV 9.5 Immature Gran % (Auto) 0.700 Neut % (Auto) 89.7 H Lymph % (Auto) 3.6 L Coleman % (Auto) 5.9 Eos % (Auto) 0.0 Baso % (Auto) 0.1 Absolute Neuts (auto) 9.8 H Absolute Lymphs (auto) 0.40 L Nucleated RBC % 0 Sodium 136 Potassium 4.3 Chloride 105 Carbon Dioxide 18.3 L Anion Gap 13 BUN 35 H Creatinine 1.67 H Estim Creat Clear Calc 36.85 L Est GFR (MDRD) Non-Af 42 L BUN/Creatinine Ratio 20.9 H Glucose 115 H Hemoglobin A1c 6.6 Calcium 8.7 Magnesium 1.5 Total Bilirubin 0.98 AST 109 H ALT 35 Alkaline Phosphatase 54 Total Creatine Kinase 2755 H Total Protein 6.5 Albumin 3.6 Globulin 2.8 Albumin/Globulin Ratio 1.3 Lipase 14 Vitamin B12 483 TSH 0.420 Urine Color Yellow Urine Clarity Sl. Cloudy Urine pH 5.0 Ur Specific [place] 1.015 Urine Protein 100 H Urine Glucose (UA) Normal Urine Ketones Negative Urine Occult Blood 250 H Urine Nitrite Negative Urine Bilirubin Negative Urine Urobilinogen Normal Ur Leukocyte Esterase 500 H Urine RBC 10-25 SEEN Urine WBC 10-25 SEEN Ur Squamous Epith Cells 0 SEEN Urine Bacteria 3+ Fine Granular Casts 0-5 SEEN Urine Mucus 0 SEEN Radiography Diagnostic Testing: Clinical Impression(s) from Imaging Studies Brain CT 11/04/24 17:07 IMPRESSION: No acute intracranial findings. Age-appropriate senescent change. Mild inflammatory changes in the ethmoid and left sphenoid sinus. Reading Location: [facility] Cervical Spine CT 11/04/24 17:07 IMPRESSION: Status post dorsal fusion with instrumentation, C3 through C7. No acute fractures. Multilevel degenerative disc disease. Multilevel foraminal narrowing and facet arthropathy. Reading Location: [facility] Chest/Abdomen/Pelvis CT 11/04/24 17:07 IMPRESSION: 1. Parenchymal scarring in the lung bases. 2. Severe coronary artery calcifications. 3. Suspicion of cholelithiasis. 4. Left obstructive uropathy with moderate hydroureteronephrosis. Associated left perirenal fat stranding. 5. Bilateral nonobstructive nephrolithiasis. 6. Chronic prostatitis. 7. Right hydrocele. 8. Diverticulosis. 9. Bilateral fat containing inguinal hernias. 10. Other nonacute findings detailed above. Reading Location: [facility] Hip/Pelvis X-Ray 11/04/24 18:00 IMPRESSION: Severe osteoarthritis involving the right hip. Reading Location: [facility] EKG Initial EKG: Comments: EKG #1 electronic my reading A-fib 103, however artifacts were noted. Sinus PACs first-degree AV block. Right bundle branch block. Repeat EKG at 1827, sinus arrhythmia with PVCs, first-degree AV block, right bundle branch block. Treatment and Re-Evaluation Narrative: Attending note: I have personally performed a face to face assessment of the patient and have reviewed the JACK note. I personally made/approved the management plan and take responsibility for the patient management. I performed a substantive portion of the visit including all aspects of the following. My cordova findings include: Brought in after being found on the ground daughter present. Last normal 18 hours ago. She was over patient's house due to complaints of abdominal discomfort with history of kidney stones he had a stent removed 9 days ago on the right side followed by Dr. Pham. He was confused when she saw her during my evaluation he is back to normal. Exam GCS 15 alert and orient x 3. Heart is regular negative logroll bilaterally no shortening or deformities. No chest wall tenderness. Heart is regular lungs clear abdomen soft. Patient had workup with image studies trauma scans head neck chest abdomen pelvis with right hip x-rays. 3 view right hip pelvis interpreted myself no appreciable fracture or dislocation noted. Trauma scans head neck chest and pelvis negative. However did note obstructive urolithiasis on the left side to stones largest 6 mm. Urine results positive for infection culture sent. Cover with Rocephin antibiotics. We discussed with his urologist updated plan for stent placement tomorrow. Patient admitted to hospitalist service. On the ED developed a fever. Antibiotics was just started a lactic acid and blood cultures were added as he meets SIRS criteria. Blood pressure remained stable. He was treated with Tylenol for his fever. Discharge Plan Dx/Rx/DC Orders Clinical Impression: Rhabdomyolysis, Calculus of left ureter, UTI (urinary tract infection), Dehydration, Fever Disposition Disposition: Acute Care Hospital [facility] Discharge Date/Time: 11/04/24 21:04
[2024-11-04 18:54] LABS: Mucous, Urine 0 SEEN /hpf (<or=2+); Squamous Epithelial Cells - UA 0 SEEN /hpf (0-5)
[2024-11-04 18:57] LABS: Color, Urine Yellow (Yellow); Glucose, Dipstick Normal (Normal); Ketone-Dipstick Negative (Negative); Leukocyte Esterase-Dipstick 500 /ul (Negative); Nitrite-Dipstick Negative (Negative); Occult Blood-Urine 250 /ul (Negative); Protein-Dipstick 100 mg/dl (Negative); Specific Gravity, Urine 1.015 (1.002-1.030); Urine Bilirubin Dipstick Negative (Negative); Urine Clarity Sl. Cloudy (Clear); Urine Urobilinogen Normal (Normal)
[2024-11-04 19:27] LABS: Fine Granular Cast- Urine 0-5 SEEN /lpf (0-5); White Blood Cells 10-25 SEEN /hpf (0-5)
[2024-11-04 19:28] LABS: Bacteria 3+ /hpf (None Seen); Red Blood Cells-Urine 10-25 SEEN /hpf (0-5)
--- NOTE | 2024-11-04 20:00 | HP.PCM.HOS_ITS ---
[facility] - General General Date of Admission: 11/04/24 Date of Service: 11/04/24 Chief Complaint: Fall and Left Flank Pain. HPI Narrative AARON ELIZABETH, is a 74 M with a past medical history of essential hypertension; on lisinopril, hyperlipidemia; on atorvastatin, morbid obesity; with BMI of 46.8 this admission, DM-2; of unknown control on metformin, BPH; on tamsulosin, history of MRSA, chronic debility; with frequent falls and closed head injury (2011), chronic venous stasis dermatitis, OA; with sciatica, chronic back pain plus history of cervical spine surgery and recently diagnosed Left renal calculus; s/p ECSWL and stent removal by Dr. Pham of urology on October 19, 2024 who presents to [facility] ER complaining of fall and Left flank pain. Mr. Elizabeth reports his symptoms began last night when he fell while trying to get out of his recliner and then could not get back up. He stayed on the floor until ~3:00 PM today when his daughter came to check on him because she could not get him on the phone and found him on the floor. He is not sure if he had significant head trauma or LOC. He was noted to be A&Ox4 in the ER but his daughter claimed he still seemed confused. He also admits to Left-sided flank pain that is radiating into his abdomen with intermittent nausea that is very similar to his previous kidney stone, in addition to Right-sided abdominal pain and hip pain. He denies associated fevers, chills, chest pain, SOB, heart racing, palpitations, paresthesias, headache or rash. In the ER he was noted to have and elevated CK of 2,755 U/L present on admission consistent with Rhabdomyolysis complicated by UA positive for Acute Cystitis; with microscopic hematuria compounded by CT evidence of Left obstructive uropathy with moderate hydronephrosis and associated Left perirenal fat stranding (consistent with suspected Left Pyelonephritis) with bilateral nonobstructive nephrolithiasis and Chronic Prostatitis compounded by clinical evidence of Generalized Weakness with Ambulatory Dysfunction after recent Fall in the setting of previously known Chronic Debility and he was then admitted to the general medical floor for ongoing care for a stay that is expected to extend beyond 2 midnights. [facility] Medical History Loss of hearing Walker as ambulation aid High cholesterol History of stress test Wears glasses History of MRSA infection Non-smoker Physical debility Debility Closed head injury Frequent falls Sciatica Kidney stones Decreased hearing Hyperlipemia Hypertension Chronic back pain Arthritis Type 2 diabetes mellitus Home Medications ?Medication ?Instructions ?Recorded ?Last Taken ?Type atorvastatin 40 mg tablet 40 mg PO QHS CHOLESTEROL 09/2610/18/24 History lisinopril 5 mg tablet 5 mg PO DAILY blood pressure 04/25/19 10/18/24 History metformin 500 mg tablet 500 mg PO BID diabetes 02/0210/18/24 History acetaminophen 500 mg tablet 1,000 mg (2 x 500 mg) PO Q 6H PRN 12/03/21 10/18/24 Rx PRN Pain Score 1-3 #0 tabs gabapentin 100 mg capsule 100 mg PO TIDCM pain 30 days #90 12/03/21 10/18/24 Rx caps tamsulosin 0.4 mg capsule 0.4 mg PO DAILY@1730 bph 14 days 09/25/24 10/18/24 Rx #14 caps Allergy/AdvReac Type Severity Reaction Status Date / Time oxycodone HCl (From Percocet) Allergy Intermediate Other Verified 10/19/24 11:59 Family History Father Mental disorder Heart disease Mother Heart disease High cholesterol Surgical History History of kidney stones History of cervical spinal surgery Social History household members: none Smoking Status: Never smoker alcohol intake: never substance use type: does not use what type of physical activity do you participate in: walking frequency: daily ROS ROS Narrative Review of Systems: Constitutional: Patient denies fever or chills. Eyes: Patient denies changes in vision or discharge from eyes. ENT: Patient denies runny nose, sore throat or ear pain. Resp: Patient denies SOB or cough. CV: Patient denies chest pain, palpitations, heart racing or LE edema. GI: Patient admits to Right sided abdominal pain after fall with nausea but he denies vomiting, diarrhea or constipation. : Patient admits to Left flank pain as per HPI. MSK: Patient admits to generalized weakness with ambulatory dysfunction and frequent falls as per HPI. Skin: Patient denies rash. Psych: Patient denies symptoms of uncontrolled depression or anxiety. Neuro: Patient denies headache, paresthesias or focal neurologic deficits. Allergy: Patient denies lip swelling, tongue swelling or urticaria. Hematology: Patient denies easy bleeding or easy bruisability. Endocrinology: Patient denies polyuria, polydipsia or polyphagia. 14 point ROS otherwise negative except for positives noted above in HPI. Vital Signs Vital Signs Vital Signs: 11/04/24 16:33 11/04/24 16:40 11/04/24 16:47 Temperature 99.7 F H Temperature Source Oral Pulse Rate 91 89 Respiratory Rate 18 16 Respiratory Effort Normal Respiratory Depth Normal Respiratory Pattern Normal Blood Pressure 119/72 Blood Pressure Mean 87 Pulse Ox 95 96 Oxygen Delivery Method Room Air Room Air Room Air Oxygen Flow Rate (L/min) 11/04/24 17:32 11/04/24 18:53 11/04/24 19:00 Temperature Temperature Source Pulse Rate 88 105 H Respiratory Rate 20 H 20 H Respiratory Effort Respiratory Depth Respiratory Pattern Blood Pressure 128/82 H 136/79 H 113/67 Blood Pressure Mean 97 98 82 Pulse Ox 92 96 Oxygen Delivery Method Nasal Cannula Room Air Oxygen Flow Rate (L/min) 2 Weight Weight: 216 lb 4.375 oz Body Mass Index (BMI) 46.7 Physical Exam Const alert, oriented x3 and no apparent distress Constitutional Narrative: Morbid obesity. General Appearance: cooperative HEENT normocephalic, head/scalp atraumatic and hearing grossly normal bilaterally HEENT Narrative: Mucous membranes dry. Eyes PERRL, EOMs intact bilaterally and conjunctivae normal Neck no lymphadenopathy and supple Resp normal respiratory effort, no retractions, no use of accessory muscles and clear to auscultation bilaterally Cardio regular rate and regular rhythm GI normal to inspection, nondistended, normoactive bowel sounds, soft to palpation and non-distended GI Narrative: Left CVA TTP. Extremity Extremity Narrative: Patient has decreased ROM of the Right hip with positive log-roll with normal pulses and no signs of vasular compromise. Skin Skin Narrative: Patient has evidence of chronic venous stasis dermatitis of both lower extremities. Neuro oriented x3, CN's II-XII intact bilaterally, moves all extremities and no focal motor deficits Sensorium / Orientation: awake, alert, oriented to person, oriented to place and oriented to time Speech: speech normal Psych affect normal Results Medical Records Data Attestation: I reviewed the patient's medical records Lab / Micro Data Attestation: I reviewed the patient's lab results. 11/05/24 04:16 11/05/24 04:16 Labs: Laboratory Results - last 24 hr 11/04/24 17:20: WBC 11.0, RBC 3.46 L, Hgb 11.3 L, Hct 33.5 L, MCV 96.8 H, MCH 32.7 H, MCHC 33.7, RDW Std Deviation 44.0 H, RDW Coeff of Javid 12.7, Plt Count 221, MPV 9.5, Immature Gran % (Auto) 0.700, Neut % (Auto) 89.7 H, Lymph % (Auto) 3.6 L, Mclean % (Auto) 5.9, Eos % (Auto) 0.0, Baso % (Auto) 0.1, Absolute Neuts (auto) 9.8 H, Absolute Lymphs (auto) 0.40 L, Nucleated RBC % 0, Sodium 136, Potassium 4.3, Chloride 105, Carbon Dioxide 18.3 L, Anion Gap 13, BUN 35 H, C reatinine 1.67 H, Estim Creat Clear Calc 36.85 L, Est GFR (MDRD) Non-Af 42 L, B UN/Creatinine Ratio 20.9 H, Glucose 115 H, Calcium 8.7, Total Bilirubin 0.98, A ST 109 H, ALT 35, Alkaline Phosphatase 54, Total Creatine Kinase 2755 H, Total Protein 6.5, Albumin 3.6, Globulin 2.8, Albumin/Globulin Ratio 1.3, Lipase 14 11/04/24 18:50: Urine Color Yellow, Urine Clarity Sl. Cloudy, Urine pH 5.0, Ur Specific Troy 1.015, Urine Protein 100 H, Urine Glucose (UA) Normal, Urine Ketones Negative, Urine Occult Blood 250 H, Urine Nitrite Negative, Urine Bilirubin Negative, Urine Urobilinogen Normal, Ur Leukocyte Esterase 500 H, Urine RBC 10-25 SEEN, Urine WBC 10-25 SEEN, Ur Squamous Epith Cells 0 SEEN, Urine Bacteria 3+, Fine Granular Casts 0-5 SEEN, Urine Mucus 0 SEEN Imaging Radiology Impression Brain CT 11/04/24 17:07 IMPRESSION: No acute intracranial findings. Age-appropriate senescent change. Mild inflammatory changes in the ethmoid and left sphenoid sinus. Reading Location: [facility] Cervical Spine CT 11/04/24 17:07 IMPRESSION: Status post dorsal fusion with instrumentation, C3 through C7. No acute fractures. Multilevel degenerative disc disease. Multilevel foraminal narrowing and facet arthropathy. Reading Location: [facility] Chest/Abdomen/Pelvis CT 11/04/24 17:07 IMPRESSION: 1. Parenchymal scarring in the lung bases. 2. Severe coronary artery calcifications. 3. Suspicion of cholelithiasis. 4. Left obstructive uropathy with moderate hydroureteronephrosis. Associated left perirenal fat stranding. 5. Bilateral nonobstructive nephrolithiasis. 6. Chronic prostatitis. 7. Right hydrocele. 8. Diverticulosis. 9. Bilateral fat containing inguinal hernias. 10. Other nonacute findings detailed above. Reading Location: [facility] Hip/Pelvis X-Ray 11/04/24 18:00 IMPRESSION: Severe osteoarthritis involving the right hip. Reading Location: [facility] Imaging Services [address] [place] [address] [id number] CTA Chest W/WO Contrast MR#: [id number] Acct: [id number] Name: AARON ELIZABETH Rep #: [id number] : 1950 M 74 From: Abdias Garcia MD PCP: Dr. Mitch Mcwilliams MD Status: ADM IN Study: CTA Chest W/WO Contrast Date of Exam: 11/04/24 Exam# [id number] Ordering Dr: Joel Baldwin DO PROCEDURE: CTA CHEST W/WO CONTRAST 11/04/2024 REASON FOR EXAM: ELEVATED D-DIMER. TECHNIQUE: CTA axial imaging of the chest with intravenous contrast. Contiguous axial scans of 1.25 mm slice thicknesses. Sagittal and coronal reconstruction images were obtained. One or more dose reduction techniques were used (e.g., automated exposure control, adjustment of mA and/or kv according to patient size, use of iterative reconstruction technique). CONTRAST: Isovue 370 VOLUME: 100mL RADIATION DOSE SUMMARY: CTDlvol: 49.07 mGy DLP: 531.04 mGycm COMPARISON: Earlier study dated 11/04/2024. FINDINGS: Lymph nodes: Heart: No cardiac enlargement. Coronary artery calcifications. Thoracic Aorta: No aneurysm or dissection. Pulmonary Vessels: No intraluminal filling defects. No central pulmonary artery dilatation. Lungs and Airways: Parenchymal scarring and or subsegmental atelectasis in the lower lobes. Pleura: No pneumothorax. No pleural effusions. No abnormal thickening. Upper Abdomen: Large right renal cyst measuring 5.3 x 4.9 cm. Bones: Unchanged. CT/CTA Chest W/WO Contrast IMPRESSION: No evidence of pulmonary embolism. Large right renal cyst. Stable chronic changes in the bilateral lungs. Reading Location: [facility] CC: Dr. Joel Balwdin DO; Dr. Mitch Mcwilliams MD ~ Photo Retoucher: Signed Assessment & Plan Assessment/Plan (1) Rhabdomyolysis: QUALIFIERS: Encounter type: initial encounter Rhabdomyolysis type: traumatic Qualified Code(s): T79.6XXA - Traumatic ischemia of muscle, initial encounter (2) Fall at home: QUALIFIERS: Encounter type: initial encounter Qualified Code(s): W19.XXXA - Unspecified fall, initial encounter; Y92.009 - Unspecified place in unspecified non-institutional (private) residence as the place of occurrence of the external cause (3) Acute cystitis with hematuria: (4) Calculus of left ureter: (5) Pyelonephritis of left kidney: (6) Fever: QUALIFIERS: Fever type: due to other condition Qualified Code(s): R50.81 - Fever presenting with conditions classified elsewhere (7) Chronic prostatitis: (8) BPH (benign prostatic hyperplasia): QUALIFIERS: Lower urinary tract symptom presence: unspecified whether lower urinary tract symptoms present Qualified Code(s): N40.0 - Benign prostatic hyperplasia without lower urinary tract symptoms (9) Generalized weakness: (10) Ambulatory dysfunction: (11) Morbid obesity with BMI of 45.0-49.9, adult: PLAN: Plan 1. Elevated CK of 2,755 U/L present on admission consistent with Rhabdomyolysis after recent Fall with prolonged down time - Admit to general medical floor. Aggressively volume resuscitate and recheck CK and CMP in AM to follow trend. Checked d-dimer - which was elevated 3.6 present on admission with CTA of chest with IV contrast negative for PE lower extremity Doppler pending in a.m. 2. UA positive for Acute Cystitis; with microscopic hematuria with corresponding CT evidence of Left obstructive uropathy with moderate hydronephrosis and associated Left perirenal fat stranding (consistent with suspected Left Pyelonephritis) with bilateral nonobstructive nephrolithiasis and Chronic Prostatitis in the setting of previously known BPH complicating and recently diagnosed Left renal calculus; s/p ECSWL and stent removal by Dr. Pham of urology on October 19, 2024 complicating #1 - Stop IV ceftriaxone begun in the ER and begin piperacillin-tazobactam with patient spiking fever to 102.3 degrees Fahrenheit after ceftriaxone and await culture/sensitivity data. Give acetaminophen prn for [id number]-edfrtcqa (level 1-5/10) pain or fever. Give morphine IV prn for severe (level 6-10/10) pain. Keep NPO after MN for impending ureteral stent. Finally, we will consult Dr. Pham to see patient on rounds in the AM for replacement of recently removed Left ureteral stent with help appreciated in advance. 3. Generalized Weakness with Ambulatory Dysfunction due to #1 & #2 in the setting of previously known Chronic Debility and Frequent Falls - Check B12 and Folate to evaluate for possible neuropathy. PT/OT and Case Management to consult and treat on rounds in AM for further recommendations with help appreciated in advance. 4. Morbid obesity; with BMI of 46.8 this admission adding to the burden of disease outlined from #1 - #3 - Weight loss will be recommended. Check TSH. This complicates his case and may hamper recovery. 5. OA; with sciatica, chronic back pain plus history of cervical spine surgery adding to the medical complexity of #1 - #4 - Noted. 6. Essential Hypertension; on lisinopril - Continue current regimen plus give IV hydralazine prn for systolic blood pressure > 160 mmHg. 7. Hyperlipidemia; on atorvastatin - Hold statin in case of possible myotoxicity contributing to #3. Check Lipid Profile. 8. DM-2; of unknown control on metformin - Hold metformin while admitted. ADA diet. FSBS q. AC/HS plus lowest-intensity SSI. Check HgbA1c to objectively evaluate quality of diabetic control. 9. History of MRSA - Noted. 10. Chronic venous stasis dermatitis - Noted. 11. DVT prophylaxis - SCD's only at this time with impeding urologic procedure in AM. Total time: Approximately (but not less than) 75 minutes. Charges/Coding Visit Charges Inpatient E&M: 71832 Init Hosp L3
[2024-11-04] MEDS: Ceftriaxone 1 GM/50 ML BAG IV (20:17)
[2024-11-04] MEDS: Acetaminophen 325 MG Tablet 650 MG PO (20:31)
[2024-11-04 21:31] LABS: Magnesium 1.5 mg/dL (1.5-2.2)
[2024-11-04] MEDS: 0.9% Normal Saline (1000mL) 1,000 ML 125 ML IV (21:31)
[2024-11-04] MEDS: Cholecalciferol (Vit D3) 125 MCG CAPSULE (5,000 UNITS) PO (21:44)
[2024-11-04] MEDS: Piperacil/Tazobactam 3.375 GM in 0.9% Normal Saline (50mL MB+) 50 ML IV (21:44)
[2024-11-04] MEDS: Zinc Sulfate 50 mg zinc (220 mg) ORAL capsule PO (21:44)
[2024-11-04] MEDS: Lactobacillis Acidophilus 1 CAP PO (21:45)
[2024-11-04 21:56] LABS: Hemoglobin A1c 6.6 % (<=5.6)
[2024-11-04 22:18] LABS: Bedside Glucose 110 mg/dL (74-106)
--- NOTE | 2024-11-04 22:40 | CT_ITS ---
PROCEDURE: CTA CHEST W/WO CONTRAST 11/04/2024 REASON FOR EXAM: ELEVATED D-DIMER. TECHNIQUE: CTA axial imaging of the chest with intravenous contrast. Contiguous axial scans of 1.25 mm slice thicknesses. Sagittal and coronal reconstruction images were obtained. One or more dose reduction techniques were used (e.g., automated exposure control, adjustment of mA and/or kv according to patient size, use of iterative reconstruction technique). CONTRAST: Isovue 370 VOLUME: 100mL RADIATION DOSE SUMMARY: CTDlvol: 49.07 mGy DLP: 531.04 mGycm COMPARISON: Earlier study dated 11/04/2024. FINDINGS: Lymph nodes: Heart: No cardiac enlargement. Coronary artery calcifications. Thoracic Aorta: No aneurysm or dissection. Pulmonary Vessels: No intraluminal filling defects. No central pulmonary artery dilatation. Lungs and Airways: Parenchymal scarring and or subsegmental atelectasis in the lower lobes. Pleura: No pneumothorax. No pleural effusions. No abnormal thickening. Upper Abdomen: Large right renal cyst measuring 5.3 x 4.9 cm. Bones: Unchanged. CT/CTA Chest W/WO Contrast IMPRESSION: No evidence of pulmonary embolism. Large right renal cyst. Stable chronic changes in the bilateral lungs. Reading Location: [facility]
[2024-11-04 22:45] LABS: Vitamin B12 483 pg/mL (180-914)
--- NOTE | 2024-11-04 22:46 | VDLE_ITS ---
Reason For Study Reason For Study: Elevated D-Dimer RIGHT LEFT GSV is normal. GSV is normal. CFV is compressible, spontaneous, phasic, competent CFV is compressible, spontaneous, phasic, competent, and demonstrates normal augmentation. and demonstrates normal augmentation. FV is compressible, spontaneous, phasic, competent FV is compressible, spontaneous, phasic, competent and demonstrates normal augmentation. and demonstrates normal augmentation. POP V is compressible, spontaneous, phasic, competent POP V is compressible, spontaneous, phasic, competent and demonstrates normal augmentation. and demonstrates normal augmentation. T/P Trunk is compressible. T/P Trunk is compressible. PTV is compressible. PTV is compressible. RT PerV is compressible. LT PerV is compressible. Procedure This is a venous duplex using B-mode, color flow and spectral Doppler. Exam performed portable in patient room. The study was technically difficult. A preliminary report was called and/or faxed to Syd[facility]AN[facility]. VL/Venous Duplex US - Mitch Extrem Interpretation Summary Deep veins of the bilateral lower extremities are patent and compressible segme ntally. There is no evidence of bilateral lower extremity deep vein thrombosis. The bilateral great saphenous veins appea r patent and compressible segmentally. Ordering Physician: Joel Baldwin Referring Physician: Mitch Mcwilliams Chi Performed By: Mary Gotti, JOSE, RVT
[2024-11-04 22:56] LABS: FOLATES,SERUM (FOLIC ACID) 6.89 ng/mL (4.60-34.80)
[2024-11-05] VITALS (19 sets, daily range): BP systolic 109–145; BP diastolic 60–94; PULSE 75–102; RESP 14–18; TEMP 36.6–39.1; O2SAT 92–97; BMI 31.2; BMI 31.1
--- NOTE | 2024-11-05 | CALC_PTH ---
PATIENT: AARON GOMEZ LOC: MS3 U#:[id number] AGE/SX: 74/M ROOM: [facility] RE11/04/[address]: Dr. Wellington Stone MD : 1950 BED: 1 DIS: 11/07/2024 SPEC #: [id number] RECD: 11/05/24 14:16 STATUS: TTAI EPNDLETON #: [id number] RIAZ: 11/05/24 00:[address]: Jose Manuel Pham DEPT: SURGICAL PATHOLOGY RECD BY: Cody Welsh ENTERED: 11/05/24 14:16 SP TYPE: Calculi OTHR DR: DO Dr. Jose Manuel Dallas MD Dr. Prakash Chand, MD Dr. Tai Chi Kwok, MD Tissues: CALCULI Procedures: Surgery Specimen Level I Comments: @ Ordering doctor for KEENA edited from to @ ron GARCIA at 11/07/24 0830 @ Submitting doctor edited from to @ by RADHA at 11/07/24 0830 HEADER OPERATION: Ureteroscopy, laser PRE-OP DIAGNOSIS: Calculus of left ureter, pyelonephritis of left kidney TISSUE SUBMITTED: A- Ureteral calculi GROSS DIAGNOSIS A. Ureter, left, calculi, ureteroscopy: * Calculi confirmed (gross examination only). * Pending chemical analysis to be reported separately. GROSS DESCRIPTION A. Received in formalin in a container labeled with the patient's name, date of , and ureteral calculi are multiple ernandez-brown, irregular and friable stones measuring approximately 0.9 x 0.7 x 0.3 cm in aggregate. No soft tissue is received; no sections are submitted. The specimen is sent to a urolithiasis lab. [facility] 11-05-2024 CPT:63562
[2024-11-05 04:49] LABS: Absolute Lymphocyte Count 0.39 X10^3/uL (0.83-4.51); Absolute Neutrophil Count 6.3 X10^3/uL (2.0-7.7); Basophil# 0.01 X10^3/uL; Basophil% 0.1 % (0-1); Hematocrit 33.4 % (40-54); Hemoglobin 10.8 g/dL (13.0-16.5); Lymphocyte # 0.39 X10^3/ul (0.83-4.51); Lymphocyte % 5.3 % (19-41); Mean Corp Hgb Conc 32.3 g/dL (32-36); Mean Corpuscular Hgb 31.9 pg (27.0-32.0); Mean Corpuscular Volume 98.5 fL (80-94); Mean Platelet Vol. 9.4 fl (6.2-12.0); Monocyte# 0.56 X10^3/uL; Monocyte% 7.7 % (0-10); NRBC Flagged by Analyzer 0 % (0-5); Neutrophil # 6.26 X10^3/uL (2.7-7.7); Neutrophil % 85.5 % (47-70); POSITIVE DIFFERENTIAL YES; Platelet Count 193 K/mm3 (150-450); RBC Distribution Width SD 46.2 fl (35.1-43.9); Red Blood Count 3.39 M/mm3 (4.6-6.2); White Blood Count 7.3 K/mm3 (4.4-11.0)
[2024-11-05] MEDS: Piperacil/Tazobactam 3.375 GM in 0.9% Normal Saline (50mL MB+) 50 ML IV (05:14)
[2024-11-05] MEDS: 0.9% Normal Saline (1000mL) 1,000 ML 125 ML IV (05:16)
[2024-11-05] MEDS: Acetaminophen 325 MG Tablet 650 MG PO ×2 (05:21→21:36)
[2024-11-05 05:46] LABS: Bedside Glucose 121 mg/dL (74-106)
[2024-11-05 05:52] LABS: ALB/GLOB Ratio 1.3 RATIO (0.9-2.4); AST(SGOT) 130 U/L (<=37); Alanine Aminotransfer ALT/SGPT 44 U/L (<=46); Albumin, Serum 3.3 g/dL (3.4-4.8); Alkaline Phosphatase 49 U/L (40-129); Anion Gap 12 (5-15); BUN 38 mg/dL (4-19); BUN/Creat Ratio 20.9 RATIO (10-20); CPK Total, Creatine Kinase 2794 U/L (24-195); Calcium,Total 8.1 mg/dL (7.6-11.0); Carbon Dioxide 17.2 mmol/L (21.0-32.0); Chloride 107 mmol/L (98-108); Cholesterol 104 mg/dL (<=200); Creatinine, Serum 1.79 mg/dL (0.70-1.20); EST Glomerular Filtration Rate 39 (>60); Estimated Creatinine Clearance 40.12 ml/min (50-250); Globulin 2.6 g/dL (2.2-4.2); Glucose 119 mg/dL (70-99); High Density Lipoprotein 42 mg/dL; Low Density Lipoprotein Calc. 38 mg/dL; Phosphorus 2.5 mg/dL (2.7-4.5); Potassium 4.9 mmol/L (3.3-5.1); Protein, Total 5.8 g/dL (5.9-8.4); Sodium Level 136 mmol/L (133-145); Total Bilirubin 0.69 mg/dL (0.00-1.30); Triglycerides 122 mg/dL; Very Low Density Lipoprotein 24 mg/dL (5-40); cholesterol:hdl ratio screen 2.51
--- NOTE | 2024-11-05 07:22 | CON.PCM.UR_ITS ---
Assessment & Plan Assessment/Plan (1) Calculus of left ureter: PLAN: plan to laser the stone is the day with laser lithotripsy npo HPI Consult Data Date of Consult: 11/05/24 HPI Narrative Reason for Consultation: left kidney stones HPI Narrative: AARON GOMEZ, is a 74 M who presents to the hospital with a fall recently weakness CT scan was done demonstrated multiple stones in the distal left ureter that are causing obstruction he had treatment with shockwave lithotripsy. Keep NPO plan to taken the surgery today and laser the remaining stone fragments the kidneys out. Possible he may need aa stent. [facility] Medical History Loss of hearing Walker as ambulation aid High cholesterol History of stress test Wears glasses History of MRSA infection Non-smoker Physical debility Debility Closed head injury Frequent falls Sciatica Kidney stones Decreased hearing Hyperlipemia Hypertension Chronic back pain Arthritis Type 2 diabetes mellitus Home Medications ?Medication ?Instructions ?Recorded ?Last Taken ?Type atorvastatin 40 mg tablet 40 mg PO QHS CHOLESTEROL 09/2610/18/24 History lisinopril 5 mg tablet 5 mg PO DAILY blood pressure 04/25/19 10/18/24 History metformin 500 mg tablet 500 mg PO BID diabetes 02/0210/18/24 History acetaminophen 500 mg tablet 1,000 mg (2 x 500 mg) PO Q 6H PRN 12/03/21 10/18/24 Rx PRN Pain Score 1-3 #0 tabs gabapentin 100 mg capsule 100 mg PO TIDCM pain 30 days #90 12/03/21 10/18/24 Rx caps tamsulosin 0.4 mg capsule 0.4 mg PO DAILY@1730 bph 14 days 09/25/24 10/18/24 Rx #14 caps Allergy/AdvReac Type Severity Reaction Status Date / Time oxycodone HCl (From Percocet) Allergy Intermediate Other Verified 10/19/24 11:59 Family History Father Mental disorder Heart disease Mother Heart disease High cholesterol Surgical History History of kidney stones History of cervical spinal surgery Social History household members: none Smoking Status: Never smoker alcohol intake: never substance use type: does not use what type of physical activity do you participate in: walking frequency: daily Lab / Micro Data 11/05/24 04:16 11/05/24 04:16 Labs: Laboratory Results - last 24 hr 11/04/24 17:20: WBC 11.0, RBC 3.46 L, Hgb 11.3 L, Hct 33.5 L, MCV 96.8 H, MCH 32.7 H, MCHC 33.7, RDW Std Deviation 44.0 H, RDW Coeff of Javid 12.7, Plt Count 221, MPV 9.5, Immature Gran % (Auto) 0.700, Neut % (Auto) 89.7 H, Lymph % (Auto) 3.6 L, [place] % (Auto) 5.9, Eos % (Auto) 0.0, Baso % (Auto) 0.1, Absolute Neuts (auto) 9.8 H, Absolute Lymphs (auto) 0.40 L, Nucleated RBC % 0, Sodium 136, Potassium 4.3, Chloride 105, Carbon Dioxide 18.3 L, Anion Gap 13, BUN 35 H, C reatinine 1.67 H, Estim Creat Clear Calc 36.85 L, Est GFR (MDRD) Non-Af 42 L, B UN/Creatinine Ratio 20.9 H, Glucose 115 H, Hemoglobin A1c 6.6, Calcium 8.7, Magnesium 1.5, Total Bilirubin 0.98, AST 109 H, ALT 35, Alkaline Phosphatase 54, Total Creatine Kinase 2755 H, Total Protein 6.5, Albumin 3.6, Globulin 2.8, Albumin/Globulin Ratio 1.3, Lipase 14, Vitamin B12 483, TSH 0.420 11/04/24 18:50: Urine Color Yellow, Urine Clarity Sl. Cloudy, Urine pH 5.0, Ur Specific [place] 1.015, Urine Protein 100 H, Urine Glucose (UA) Normal, Urine Ketones Negative, Urine Occult Blood 250 H, Urine Nitrite Negative, Urine Bilirubin Negative, Urine Urobilinogen Normal, Ur Leukocyte Esterase 500 H, Urine RBC 10-25 SEEN, Urine WBC 10-25 SEEN, Ur Squamous Epith Cells 0 SEEN, Urine Bacteria 3+, Fine Granular Casts 0-5 SEEN, Urine Mucus 0 SEEN 11/04/24 20:58: Lactic Acid 1.0 11/04/24 21:56: POC Glucose 110 H 11/04/24 22:06: D-Dimer Quant (PE/DVT) 3.60 H*, Serum Folate 6.89 11/05/24 04:16: WBC 7.3, RBC 3.39 L, Hgb 10.8 L, Hct 33.4 L, MCV 98.5 H, MCH 31.9, MCHC 32.3, RDW Std Deviation 46.2 H, RDW Coeff of Javid 13.0, Plt Count 193, MPV 9.4, Immature Gran % (Auto) 1.400 H, Neut % (Auto) 85.5 H, Lymph % (Auto) 5.3 L, [place] % (Auto) 7.7, Eos % (Auto) 0.0, Baso % (Auto) 0.1, Absolute Neuts (auto) 6.3, Absolute Lymphs (auto) 0.39 L, Nucleated RBC % 0, Sodium 136, Potassium 4.9, Chloride 107, Carbon Dioxide 17.2 L, Anion Gap 12, BUN 38 H, C reatinine 1.79 H, Estim Creat Clear Calc 40.12 L, Est GFR (MDRD) Non-Af 39 L, B UN/Creatinine Ratio 20.9 H, Glucose 119 H, Calcium 8.1, Phosphorus 2.5 L, Total Bilirubin 0.69, AST 130 H, ALT 44, Alkaline Phosphatase 49, Total Creatine Kinase 2794 H, Total Protein 5.8 L, Albumin 3.3 L, Globulin 2.6, Albumin/Globulin Ratio 1.3, Triglycerides 122, Cholesterol 104, LDL Cholesterol, Calc 38, VLDL Cholesterol 24, HDL Cholesterol 42, Cholesterol/HDL Ratio 2.51 11/05/24 05:09: POC Glucose 121 H Imaging Radiology Impression Brain CT 11/04/24 17:07 IMPRESSION: No acute intracranial findings. Age-appropriate senescent change. Mild inflammatory changes in the ethmoid and left sphenoid sinus. [facility] Cervical Spine CT 11/04/24 17:07 IMPRESSION: Status post dorsal fusion with instrumentation, C3 through C7. No acute fractures. Multilevel degenerative disc disease. Multilevel foraminal narrowing and facet arthropathy. Reading Location: [facility] Chest/Abdomen/Pelvis CT 11/04/24 17:07 IMPRESSION: 1. Parenchymal scarring in the lung bases. 2. Severe coronary artery calcifications. 3. Suspicion of cholelithiasis. 4. Left obstructive uropathy with moderate hydroureteronephrosis. Associated left perirenal fat stranding. 5. Bilateral nonobstructive nephrolithiasis. 6. Chronic prostatitis. 7. Right hydrocele. 8. Diverticulosis. 9. Bilateral fat containing inguinal hernias. 10. Other nonacute findings detailed above. Reading Location: [facility] Hip/Pelvis X-Ray 11/04/24 18:00 IMPRESSION: Severe osteoarthritis involving the right hip. Reading Location: [facility] Chest CTA 11/04/24 22:40 IMPRESSION: No evidence of pulmonary embolism. Large right renal cyst. Stable chronic changes in the bilateral lungs. Reading Location: [facility]
--- NOTE | 2024-11-05 11:06 | CASEMGMT ---
CLEMENCIA GREEN Assessment Face to Face with patient for initial transition planning/care coordination assessment. RN NORMA introduced self and role at [facility], pt voices understanding. Pt is A&Ox4 and is resting comfortably in the chair and is calm. Dr. Stone @ bedside. Pt is about to go for surgery. Care providers, pharmacy, and demographics verified. Admitting dx: Rhabdomyolysis after fall LACE Strata: 2 PCP: Oj Specialists: Vero (Uro) Preferred Pharmacy: [facility] Insurance: [employer] A/B, MMO Prescription Benefit: Yes LNOK: Bhavani Elizabeth (Daughter), Filomena (GD) Living Arrangements: Pt lives alone in a single story home with 3 steps to enter ADLs/IADLs: Pt states that he is independent. However, pt has had recent falls at home. Transportation: Self, daughter. Denies concerns DME: Functioning BGM with sufficient supplies. FWW. Shower chair. 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 Medical alert system resources provided. HHC/SNF: Denies history Pt?s goal: Return home Plan: TBD. Pt is scheduled for surgery today at noon. See PT notes. Pt ambulated 20 ft, contact guard x1 assist. 6-Click score is 15. At this time, the pt states that he wants to return home alone and denies the need for SNF, HHC, or OP Tx. Pt states that his GD can help him at home. CM educated the pt that care management will follow the pt progression in the hospital as well as therapy to help solidify DC plans. Pt agreeable to this. CM to follow for DC needs. Pt denies further questions or concerns at this time. Kecia Conner RN, CM
--- NOTE | 2024-11-05 11:36 | PRE.ANES_ITS ---
ASA Classification* ASA Classification ASA Classification: 3 Assessment & Plan Anesthesia* Anesthesia Assessment Anesthesia Assessment: Discussed sedation and/or anesthesia options, risks, benefits, and alternatives with patient/parents/legal guardian/POA. Questions invited. The patient/parents/legal guardian/POA seems to understand and agrees to proceed with anesthesia plan. Reviewed the physical assessment, medical history, allergy history and patient home medications list prior to surgery/procedure/anesthetic and documented any changes. Performed airway and anesthesia risk assessments. Anesthesia Type Anesthesia Type: General Anesthesia Focused Assessment* Temperature: 98.9 F Pulse Rate: 81 Blood Pressure: 128/60 Respiratory Rate: 16 Pulse Ox: 97 Oxygen Flow Rate (L/min): 0 Airway Assessment Mouth opens: >3 cm Mallampati Score: II Focused Labs Anesthesia Preop lab: CBC WBC 7.3 K/mm3 (4.4-11.0) 11/05/24 04:16 11/05/24 RBC 3.39 M/mm3 (4.6-6.2) L 11/05/24 04:16 11/05/24 Hgb 10.8 g/dL (13.0-16.5) L 11/05/24 04:16 5 Hct 33.4 % (40-54) L 11/05/24 04:16 11/05/24 Plt Count 193 K/mm3 (150-450) 11/05/24 04:16 11/05/24 CHEMISTRY Potassium 4.9 mmol/L (3.3-5.1) 11/05/24 04:16 11/05/24 Sodium 136 mmol/L (133-145) 11/05/24 04:16 11/05/24 Magnesium 1.5 mg/dL (1.5-2.2) 11/04/24 17:20 11/04/24 Phosphorus 2.5 mg/dL (2.7-4.5) L 11/05/24 04:16 11/05/24 BUN 38 mg/dL (4-19) H 11/05/24 04:16 11/05/24 Creatinine 1.79 mg/dL (0.70-1.20) H 11/05/24 04:16 Glucose 119 mg/dL (70-99) H 11/05/24 04:16 11/05/24 POC Glucose 121 mg/dL (74-106) H 11/05/24 05:09 11/05/24 TSH 0.420 uIU/mL (0.300-4.200) 11/04/24 17:20 03/ COAG Pre-Assessment Diagnosis/Proposed Procedure Planned Operative Procedure(s): Cystoscopy, laser, stent. 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 When Was Last Pacemaker Check QUESTION #4 FULL TEXT: You/Your Family Experience fever (hyperthermia) with Anesthesia Last Oral Intake Last Oral intake: Last Oral Intake NPO since 00:00 11/05/24 10:44 Meds taken in AM with sips of No 11/05/24 10:44 water? Meds patient instructed to take am of surgery PONV PONV - airfreight loading supervisor: PONV - airfreight loading supervisor Female HX of Motion Sickness HX of N/V After Surgery Non-Smoker Duration of Surgery greater than 60 minutes Number of Risk Factors PONV Score Height & Weight Height & Weight: Anesthesia: Height & Weight Height 5 ft 9 in 11/05/24 10:44 Weight: 95.708 kg 11/05/24 10:44 Body Mass Index (BMI) 31.1 11/05/24 10:44 Respiratory Assessment Respiratory Assessment - airfreight loading supervisor: Respiratory Tract Infection Hx - airfreight loading supervisor Hx Respiratory Tract Infection No 11/05/24 05:25 STOP Sleep Apnea STOP Sleep Apnea - airfreight loading supervisor: STOP Sleep Apnea - airfreight loading supervisor Hx Hypertension Yes 11/05/24 09:32 Hx Sleep Apnea No 11/04/24 21:22 CPAP No 10/19/24 14:31 BIPAP No 12/01/21 14:58 Do you snore loudly (louder Yes 11/04/24 21:22 than talking or can be heard Do you often feel tired/ No 11/04/24 21:22 fatigued/ sleepy during daytime? Has anyone observed you stop No 11/04/24 21:22 breathing during sleep? STOP Results Positive 11/04/24 21:22 QUESTION #5 FULL TEXT : Do you snore loudly (louder than talking or can be heard through closed doors)? 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 Specify any problems Hx of Preganancy in last 3 N/A 11/04/24 21:22 Months Nurse Filling Out Transfusion DREDICK 11/04/24 21:22 & Questions: Date: 11/04/24 11/04/24 21:22 Time: 21:23 11/04/24 21:22 Patient unable to answer at this time (ie. confused, unrespo /Reproduction History /Reproductive History - airfreight loading supervisor: /Reproductive Hx- airfreight loading supervisor Hx Now No 11/05/24 05:25 Gestational Age (in weeks): EDC: Hx Hx Para Hx Section SAB No 10/11/24 08:31 Active Medications Active Medications: Current Medications Generic Name Dose Route Start Last Admin Trade Name Freq PRN Reason Stop Dose Admin Acetaminophen 650 mg 11/04/24 21:30 11/05/24 05:21 Acetaminophen 325 Mg Tablet PO 650 mg Q6H PRN PRN Administration Pain 1-5/10 or Fever Al Hydroxide/Mg Hydroxide 30 ml 11/04/24 21:30 Mag Hydrox/Al Hydrox/Simeth 30 Ml Udc PO Q6H PRN PRN Gastric Burning Ascorbic Acid 1,000 mg 11/05/24 08:00 11/05/24 08:48 Ascorbic Acid 500 Mg Tablet PO Not Given BIDCM [facility] Cholecalciferol 125 mcg 11/04/24 21:30 11/05/24 08:48 Cholecalciferol (Vit D3) 125 Mcg Capsule (5,000 Units) PO Not Given DAILY THAD Gabapentin 100 mg 11/05/24 08:00 11/05/24 08:48 Gabapentin 100 Mg Capsule PO Not Given TIDCM [facility] Glucagon 1 mg 11/04/24 21:30 Glucagon 1 Mg/Ml Syringe IM X1 PRN HYPOGLYCEMIA Protocol Sodium Chloride 1,000 mls @ 125 mls/hr 11/04/24 21:00 11/05/24 05:16 IV 11/05/24 12:59 125 mls/hr .Q8H THAD Administration Dextrose 250 mls @ 0 mls/hr 11/04/24 21:30 Dextrose 10%-Water IV .Q0M PRN HYPOGLYCEMIA Protocol As Directed Piperacillin Sod/Tazobactam 50 mls @ 12.5 mls/hr 11/04/24 22:00 11/05/24 09:15 Sod 3.375 gm/ Sodium Chloride IV Infused Q8 THAD Infusion Sodium Chloride 100 mls @ 15 mls/hr 11/04/24 21:17 IV .Q6H40M PRN Saline Flush Sodium Chloride 100 mls @ 15 mls/hr 11/04/24 21:17 IV .Q6H40M PRN Additional IVPB Infusion Insulin Human Lispro 0 unit 11/05/24 00:00 11/05/24 05:15 Insulin Lispro 100 Unit/Ml Insuln.Pen SC Not Given Q6 [facility] Protocol Lisinopril 5 mg 11/05/24 10:00 11/05/24 08:48 Lisinopril 5 Mg Tablet PO Not Given DAILY [facility] Protocol Magnesium Hydroxide 30 ml 11/04/24 21:30 Magnesium Hydroxide 30 Ml Udc PO DAILY PRN PRN Constipation Melatonin 3 mg 11/04/24 22:00 Melatonin 3 Mg Tablet PO QHS PRN PRN INSOMNIA Morphine Sulfate 2 mg 11/04/24 21:30 11/04/24 21:34 Morphine 2 Mg/Ml Syringe IV 2 mg Q4H PRN PRN Administration Pain Score 6-10 Ondansetron HCl 4 mg 11/04/24 21:30 Ondansetron 4 Mg/2 Ml Vial IV Q8H PRN PRN NAUSEA/VOMITING Sodium Chloride 10 - 40 ml 11/04/24 21:17 0.9% Saline Lock 10 Ml Syringe IV UD PRN SALINE FLUSH Tamsulosin HCl 0.4 mg 11/05/24 17:30 Tamsulosin Hcl 0.4 Mg Capsule PO DAILY@1730 [facility] Zinc Sulfate 50 mg 11/04/24 21:30 11/05/24 08:48 Zinc Sulfate 50 Mg Zinc (220 Mg) Oral Capsule PO Not Given DAILY [facility] PFSH Medical History Loss of hearing Walker as ambulation aid High cholesterol History of stress test Wears glasses History of MRSA infection Non-smoker Physical debility Debility Closed head injury Frequent falls Sciatica Kidney stones Decreased hearing Hyperlipemia Hypertension Chronic back pain Arthritis Type 2 diabetes mellitus Home Medications ?Medication ?Instructions ?Recorded ?Last Taken ?Type atorvastatin 40 mg tablet 40 mg PO QHS CHOLESTEROL 09/2610/18/24 History lisinopril 5 mg tablet 5 mg PO DAILY blood pressure 04/25/19 10/18/24 History metformin 500 mg tablet 500 mg PO BID diabetes 02/0210/18/24 History acetaminophen 500 mg tablet 1,000 mg (2 x 500 mg) PO Q 6H PRN 12/03/21 10/18/24 Rx PRN Pain Score 1-3 #0 tabs gabapentin 100 mg capsule 100 mg PO TIDCM pain 30 days #90 12/03/21 10/18/24 Rx caps tamsulosin 0.4 mg capsule 0.4 mg PO DAILY@1730 bph 14 days 09/25/24 10/18/24 Rx #14 caps Allergy/AdvReac Type Severity Reaction Status Date / Time oxycodone HCl (From Percocet) Allergy Intermediate Other Verified 10/19/24 11:59 Family History Father Mental disorder Heart disease Mother Heart disease High cholesterol Surgical History History of kidney stones History of cervical spinal surgery Social History household members: none Smoking Status: Never smoker alcohol intake: never substance use type: does not use what type of physical activity do you participate in: walking frequency: daily Review of Systems (Anesthesia) ROS Narrative System reviewed and no additional complaints, except as documented.
--- NOTE | 2024-11-05 13:02 | PCM.OPRPT ---
Operative Report (Standard) Operative Information Date of Procedure: 11/05/24 Pre-Operative Diagnosis: Stones in left ureter Post-Operative Diagnosis: Same Surgery/Procedure Performed: Cystoscopy, ureteroscopy laser lithotripsy of stone fragments in the left ureter and no stent certified wellness program coordinator: No Type of Anesthesia: General RN Documented Start/Stop Times: Operation Date: 11/05/24 12:00 Case Time Into Pre-Op 11/05/24 11:16 Procedure Start Time: 12:20 Procedure Stop Time: 13:02 Select all DRAINS/GRAFTS/IMPLANTS that apply: None Estimated Blood Loss: None Specimen collected: Yes Description of specimen(s) removed: B Stone for analysis Description of surgery: Patient is taken back to the operating room at this with duction of anesthesia he was placed in dorsolithotomy position. The urethal prostate testicles were prepped and draped in usual sterile fashion 1 in the bladder with a 21 [place] rigid cystourethroscope upon entering the bladder I saw large stone poking out of the left ureteral orifice I then used a 365 ?m laser fiber started lasering the stone I then went back into the ureter with a semirigid ureteroscope and lasered both stones up the ureter I then switched over to a flexible ureteroscope and lasered most stone more stones along the course of the ureter I was then finally able to get all the way up to the renal pelvis no other stones were seen along the course of the ureter worked my way down the ureter and lasered all the stones along the course of the ureter and then came out the ureter looked at all the major stones to be lasered out some few fragments that are passing around. No stent was placed patient's bladder was drained he was taken back to the PACU in good condition he can follow-up in my office for checkup in a few weeks. Surgical Findings: stone in ureter lasered out Complications Complications: No Admit VTE Documentation VTE Present on Admission: No VTE Mechan Device Prophylaxis: SCD's VTE Pharm Prophylaxis ordered?: No
--- NOTE | 2024-11-05 13:13 | PCM.POST.ANE ---
Anesthesia: Postop Eval I Current Vital Signs Temperature: 97.8 F Pulse Rate: 91 Blood Pressure: 139/76 Respiratory Rate: 18 Pulse Ox: 94 Assessment Airway patent: Yes Spontaneous unlabored respirations: Yes nausea: No Vomiting: No Anesthesia Complication: No Fluid Hydration Crystalloid volume administer (ml): 800 Total IV fluid infused: 800 Progress Note Anesthesia document: Postop Eval 1 completed: Yes
--- NOTE | 2024-11-05 13:46 | POSTOPAN2_ITS ---
Anesthesia Postop Eval I Sum Postop Eval Completion status Anesthesia document: Postop Eval 1 completed: Yes Anesthesia Postop Eval I Summary Anesthesia Postop Eval I Summary: Anesthesia Postop Eval I: Assessment Summary Airway patent Yes 11/05/24 13:13 SOFTWARE [email or web address] Spontaneous unlabored Yes 11/05/24 13:13 SOFTWARE [email or web address] respirations Mental status nausea No 11/05/24 13:13 SOFTWARE [email or web address] Vomiting No 11/05/24 13:13 SOFTWARE [email or web address] Anesthesia Postop Eval I: Fluid Summary Crystalloid volume administer 800 11/05/24 13:13 SOFTWARE [email or web address] [email or web address] (ml) Colloids volume administered ( ml) Blood Product volume administered (ml) Total IV fluid infused 800 11/05/24 13:13 SOFTWARE QA [email or web address] Anesthesia Postop Eval I: Summary Notes Anesthesia Complication No 11/05/24 13:13 SOFTWARE [email or web address] [email or web address] Anesthesia Complication Comment: Post-operative progress note Anesthesia: Postop Eval II Evaluation Mental status: Awake Pain Level: 0 nausea: No Vomiting: No
--- NOTE | 2024-11-05 13:46 | PCM.POSTANE2 ---
Anesthesia Postop Eval I Sum Postop Eval Completion status Anesthesia document: Postop Eval 1 completed: Yes Anesthesia Postop Eval I Summary Anesthesia Postop Eval I Summary: Anesthesia Postop Eval I: Assessment Summary Airway patent Yes 11/05/24 13:13 [email or web address] Spontaneous unlabored Yes 11/05/24 13:13 AIRPLANE [email or web address] respirations Mental status nausea No 11/05/24 13:13 AIRPLANE [email or web address].CSIR Vomiting No 11/05/24 13:13 AIRPLANE [email or web address] Anesthesia Postop Eval I: Fluid Summary Crystalloid volume administer 800 11/05/24 13:13 AIRPLANE [email or web address] (ml) Colloids volume administered ( ml) Blood Product volume administered (ml) Total IV fluid infused 800 11/05/24 13:13 AIRPLANE [email or web address] Anesthesia Postop Eval I: Summary Notes Anesthesia Complication No 11/05/24 13:13 AIRPLANE [email or web address].[email or web address] Anesthesia Complication Comment: Post-operative progress note Anesthesia: Postop Eval II Evaluation Mental status: Awake Pain Level: 0 nausea: No Vomiting: No
--- NOTE | 2024-11-05 14:59 | PN.HOSP_ITS ---
Reason for Visit Reason for Visit: Diagnoses Morbid (severe) obesity due to excess calories (11/04/24) Tubulo-interstitial nephritis, not specified as acute or chronic (11/04/24) Calculus of ureter (11/04/24) Acute cystitis with hematuria (11/04/24) Benign prostatic hyperplasia without lower urinary tract symptoms (11/04/24) Chronic prostatitis (11/04/24) Difficulty in walking, not elsewhere classified (11/04/24) Fever presenting with conditions classified elsewhere (11/04/24) Weakness (11/04/24) Traumatic ischemia of muscle, initial encounter (11/04/24) Unspecified fall, initial encounter (11/04/24) Unspecified place in unspecified non-institutional (private) residence as the place of occurrence of the external cause (11/04/24) Body mass index [BMI] 45.0-49.9, adult (11/04/24) Objective Data Objective Data Vital Signs: Vital Signs Temp Pulse Resp BP Pulse Ox O2 Del Method O2 Flow Rate 97.9 F 88 16 140/79 H 95 Room Air 0 11/05/24 14:01 11/05/24 14:01 11/05/24 14:01 11/05/24 14:01 11/05/24 14:01 11/05/24 14:01 11/05/24 11:36 Oxygen Flow Rate (L/min) 0 Oxygen Delivery Method Room Air Weight: 211 lb Body Mass Index (BMI) 31.1 Intake & Output: Intake and Output for Last 24 Hours 11/03/24 11/04/24 11/05/24 23:59 23:59 23:59 Intake Total 1350 / 1350 2168.75 / 2168.75 Balance 1350 / 1350 2168.75 / 2168.75 Lab / Micro Data 11/05/24 04:16 11/05/24 04:16 Labs: Laboratory Results - last 24 hr 11/04/24 17:20: WBC 11.0, RBC 3.46 L, Hgb 11.3 L, Hct 33.5 L, MCV 96.8 H, MCH 32.7 H, MCHC 33.7, RDW Std Deviation 44.0 H, RDW Coeff of Javid 12.7, Plt Count 221, MPV 9.5, Immature Gran % (Auto) 0.700, Neut % (Auto) 89.7 H, Lymph % (Auto) 3.6 L, [place] % (Auto) 5.9, Eos % (Auto) 0.0, Baso % (Auto) 0.1, Absolute Neuts (auto) 9.8 H, Absolute Lymphs (auto) 0.40 L, Nucleated RBC % 0, Sodium 136, Potassium 4.3, Chloride 105, Carbon Dioxide 18.3 L, Anion Gap 13, BUN 35 H, C reatinine 1.67 H, Estim Creat Clear Calc 36.85 L, Est GFR (MDRD) Non-Af 42 L, B UN/Creatinine Ratio 20.9 H, Glucose 115 H, Hemoglobin A1c 6.6, Calcium 8.7, Magnesium 1.5, Total Bilirubin 0.98, AST 109 H, ALT 35, Alkaline Phosphatase 54, Total Creatine Kinase 2755 H, Total Protein 6.5, Albumin 3.6, Globulin 2.8, Albumin/Globulin Ratio 1.3, Lipase 14, Vitamin B12 483, TSH 0.420 11/04/24 18:50: Urine Color Yellow, Urine Clarity Sl. Cloudy, Urine pH 5.0, Ur Specific [place] 1.015, Urine Protein 100 H, Urine Glucose (UA) Normal, Urine Ketones Negative, Urine Occult Blood 250 H, Urine Nitrite Negative, Urine Bilirubin Negative, Urine Urobilinogen Normal, Ur Leukocyte Esterase 500 H, Urine RBC 10-25 SEEN, Urine WBC 10-25 SEEN, Ur Squamous Epith Cells 0 SEEN, Urine Bacteria 3+, Fine Granular Casts 0-5 SEEN, Urine Mucus 0 SEEN 11/04/24 20:58: Lactic Acid 1.0 11/04/24 21:56: POC Glucose 110 H 11/04/24 22:06: D-Dimer Quant (PE/DVT) 3.60 H*, Serum Folate 6.89 11/05/24 04:16: WBC 7.3, RBC 3.39 L, Hgb 10.8 L, Hct 33.4 L, MCV 98.5 H, MCH 31.9, MCHC 32.3, RDW Std Deviation 46.2 H, RDW Coeff of Javid 13.0, Plt Count 193, MPV 9.4, Immature Gran % (Auto) 1.400 H, Neut % (Auto) 85.5 H, Lymph % (Auto) 5.3 L, [place] % (Auto) 7.7, Eos % (Auto) 0.0, Baso % (Auto) 0.1, Absolute Neuts (auto) 6.3, Absolute Lymphs (auto) 0.39 L, Nucleated RBC % 0, Sodium 136, Potassium 4.9, Chloride 107, Carbon Dioxide 17.2 L, Anion Gap 12, BUN 38 H, C reatinine 1.79 H, Estim Creat Clear Calc 40.12 L, Est GFR (MDRD) Non-Af 39 L, B UN/Creatinine Ratio 20.9 H, Glucose 119 H, Calcium 8.1, Phosphorus 2.5 L, Total Bilirubin 0.69, AST 130 H, ALT 44, Alkaline Phosphatase 49, Total Creatine Kinase 2794 H, Total Protein 5.8 L, Albumin 3.3 L, Globulin 2.6, Albumin/Globulin Ratio 1.3, Triglycerides 122, Cholesterol 104, LDL Cholesterol, Calc 38, VLDL Cholesterol 24, HDL Cholesterol 42, Cholesterol/HDL Ratio 2.51 11/05/24 05:09: POC Glucose 121 H Radiography Diagnostic Testing: Radiology Impression Brain CT 11/04/24 17:07 IMPRESSION: No acute intracranial findings. Age-appropriate senescent change. Mild inflammatory changes in the ethmoid and left sphenoid sinus. Reading Location: [facility] Cervical Spine CT 11/04/24 17:07 IMPRESSION: Status post dorsal fusion with instrumentation, C3 through C7. No acute fractures. Multilevel degenerative disc disease. Multilevel foraminal narrowing and facet arthropathy. Reading Location: [facility] Chest/Abdomen/Pelvis CT 11/04/24 17:07 IMPRESSION: 1. Parenchymal scarring in the lung bases. 2. Severe coronary artery calcifications. 3. Suspicion of cholelithiasis. 4. Left obstructive uropathy with moderate hydroureteronephrosis. Associated left perirenal fat stranding. 5. Bilateral nonobstructive nephrolithiasis. 6. Chronic prostatitis. 7. Right hydrocele. 8. Diverticulosis. 9. Bilateral fat containing inguinal hernias. 10. Other nonacute findings detailed above. Reading Location: [facility] Hip/Pelvis X-Ray 11/04/24 18:00 IMPRESSION: Severe osteoarthritis involving the right hip. Reading Location: [facility] Chest CTA 11/04/24 22:40 IMPRESSION: No evidence of pulmonary embolism. Large right renal cyst. Stable chronic changes in the bilateral lungs. Reading Location: [facility] Physical Exam Narrative Seen and examined Patient admitted with generalized weakness, recurrent fall. Has poor balance. CK high about 2800 units per liter. Patient has also found to have left distal ureter multiple stones. Recently right ureteric stent was removed after treatment for right kidney stones. Denies burning micturition/dysuria Physical exam General: Alert, Oriented x3, Cooperative HEENT: Atraumatic, PERRLA, EOMI, Normocephalic Oral: No Gingival or Mucosal Lesions/ Ulcerations Neck: Supple, No JVD, Negative Carotid Bruits. C-spine surgical scar Chest wall/Lungs: Air entry diminished in bilateral lung bases. No crepitation/rhonchi Cardiovascular: Regular rate, Regular Rhythm, Normal S1, Normal S2, No M/G/R Abdomen: Bowel Sounds Present, Soft, Non-Distended : No dysuria. Tenderness present over left lower quadrant/renal angle. Extremities: No edema, Capillary Refill Less than 3 Seconds Skin: No rashes, No breakdown Musculoskeletal: Muscle strength 4+/5 at knees and hip joints. No Tenderness to Palpation of Joints or Extremities Neurological: Cranial nerves II-XII grossly intact, DTR 2+/4. No acute focal neurological deficit. Psych/Mental Status: Flat affect Assessment & Plan Assessment/Plan (1) Rhabdomyolysis: QUALIFIERS: Rhabdomyolysis type: traumatic Encounter type: i nitial encounter Qualified Code(s): T79.6XXA - Traumatic ischemia of muscle, initial encounter (2) Fall at home: QUALIFIERS: Encounter type: initial encounter Qualified Code(s): W19.XXXA - Unspecified fall, initial encounter; Y92.009 - Unspecified place in unspecified non-institutional (private) residence as the place of occurrence of the external cause (3) Acute cystitis with hematuria: (4) Calculus of left ureter: (5) Pyelonephritis of left kidney: (6) Fever: QUALIFIERS: Fever type: due to other condition Qualified Code(s): R50.81 - Fever presenting with conditions classified elsewhere (7) Chronic prostatitis: (8) BPH (benign prostatic hyperplasia): QUALIFIERS: Lower urinary tract symptom presence: unspecified whether lower urinary tract symptoms present Qualified Code(s): N40.0 - Benign prostatic hyperplasia without lower urinary tract symptoms (9) Generalized weakness: (10) Ambulatory dysfunction: (11) Morbid obesity with BMI of 45.0-49.9, adult: PLAN: Plan 1. Elevated CK of 2,755 U/L present on admission consistent with mild rhabdomyolysis after recent Fall with prolonged down time with CKD stage IIIb - Admit to general medical floor. Aggressive IV fluid resuscitation. Creatinine increased from 1.67-1.79. Baseline around 1.4-1.8. 2. Abnormal UA with suggestion of possible left pyelonephritis left ureteric calculus: UA positive of LE 500, WBC 10?25 cells, RBC 10?25, nitrite negative. CT shows left obstructive uropathy with associated left periureteral fat stranding suggestive of possible pyelonephritis. Bilateral nonobstructive nephrolithiasis. Right hydrocele. Prostatic calcifications. Patient recently had left renal calculus; s/p ECSWL and stent removal by Dr. Pham of urology on October 19, 2024: Patient was spiking temperature 92.3 ?F after ceftriaxone. Initially started on Zosyn but will change to IV Unasyn because Zosyn increased tubular creatinine secretion therefore pseudo increase in creatinine. Previous urine culture in September 2024 was negative but before that was positive for Enterococcus less than 1000 colonies [employer] Tender consulted for left ureteric stent 3. Generalized Weakness with Ambulatory Dysfunction with acute on chronic Debility and Frequent Falls -folic acid normal. B12 pending. PT and OT ordered 4. Morbid obesity; with BMI of 46.8 this admission adding to the burden of disease outlined from #1 - #3 - Weight loss will be recommended. Check TSH. This complicates his case and may hamper recovery. 5. OA; with sciatica, chronic back pain plus history of cervical spine surgery: PT and OT 6. Essential Hypertension; on lisinopril -discontinue lisinopril because of increasing creatinine. 7. Hyperlipidemia; on atorvastatin - Hold statin because of increased CK 8. DM-2; of unknown control on metformin - Hold metformin while admitted. ADA diet. FSBS q. AC/HS plus lowest-intensity SSI. 9. History of MRSA - Noted. 10. Chronic venous stasis dermatitis 11. DVT prophylaxis -SCDs Charges/Coding Visit Charges Inpatient E&M: 81868 Subs Hosp L2
[2024-11-05] MEDS: Gabapentin 100 MG Capsule PO (16:51)
[2024-11-05] MEDS: Ascorbic Acid 500 MG Tablet 1000 MG PO (16:51)
[2024-11-05] MEDS: Tamsulosin HCl 0.4 MG Capsule PO (16:52)
[2024-11-05] MEDS: Lactobacillis Acidophilus 1 CAP PO ×2 (16:52→21:36)
[2024-11-05 17:22] LABS: Bedside Glucose 99 mg/dL (74-106)
[2024-11-05] MEDS: Heparin Injection (Vial) 5,000 UNIT/ML VIAL 5000 UNIT SC (21:36)
[2024-11-05] MEDS: Ampicillin/Sulbactam 3 GM in 0.9% Normal Saline (100mL MB+) 100 ML IV (21:48)
[2024-11-05] MEDS: 0.9% Normal Saline (100mL Bag) 100 ML 15 ML IV (21:48)
[2024-11-05 22:03] LABS: Bedside Glucose 129 mg/dL (74-106)
[2024-11-06] VITALS (11 sets, daily range): BP systolic 144–158; BP diastolic 72–80; PULSE 80–97; RESP 16–18; TEMP 36.6–37.8; O2SAT 94–95; BMI 31.1; BMI 30.9
[2024-11-06] MEDS: Ampicillin/Sulbactam 3 GM in 0.9% Normal Saline (100mL MB+) 100 ML IV ×3 (04:49→21:48)
[2024-11-06 05:23] LABS: Bedside Glucose 109 mg/dL (74-106)
[2024-11-06 06:43] LABS: Absolute Neutrophil Count 5.2 X10^3/uL (2.0-7.7); Basophil# 0.01 X10^3/uL; Basophil% 0.1 % (0-1); Eosinophil# 0.01 X10^3/uL; Eosinophils% 0.1 % (0-5); Hematocrit 29.5 % (40-54); Hemoglobin 9.7 g/dL (13.0-16.5); Lymphocyte % 10.1 % (19-41); Mean Corp Hgb Conc 32.9 g/dL (32-36); Mean Corpuscular Hgb 32.3 pg (27.0-32.0); Mean Corpuscular Volume 98.3 fL (80-94); Mean Platelet Vol. 9.9 fl (6.2-12.0); Monocyte# 0.86 X10^3/uL; Monocyte% 12.4 % (0-10); NRBC Flagged by Analyzer 0 % (0-5); Neutrophil # 5.17 X10^3/uL (2.7-7.7); Neutrophil % 74.7 % (47-70); Platelet Count 172 K/mm3 (150-450); RBC Distribution Width CV 13.1 % (11.6-14.6); White Blood Count 6.9 K/mm3 (4.4-11.0)
[2024-11-06 06:59] LABS: Phosphorus 2.4 mg/dL (2.7-4.5)
[2024-11-06 07:00] LABS: Anion Gap 12 (5-15); BUN 38 mg/dL (4-19); BUN/Creat Ratio 21.1 RATIO (10-20); Calcium,Total 7.8 mg/dL (7.6-11.0); Carbon Dioxide 17.4 mmol/L (21.0-32.0); Chloride 106 mmol/L (98-108); Creatinine, Serum 1.79 mg/dL (0.70-1.20); EST Glomerular Filtration Rate 39 (>60); Estimated Creatinine Clearance 39.98 ml/min (50-250); Glucose 125 mg/dL (70-99); Sodium Level 135 mmol/L (133-145)
[2024-11-06] MEDS: Lactobacillis Acidophilus 1 CAP PO ×3 (09:23→21:49)
[2024-11-06] MEDS: Ascorbic Acid 500 MG Tablet 1000 MG PO ×2 (09:23→17:54)
[2024-11-06] MEDS: Zinc Sulfate 50 mg zinc (220 mg) ORAL capsule PO (09:23)
[2024-11-06] MEDS: Cholecalciferol (Vit D3) 125 MCG CAPSULE (5,000 UNITS) PO (09:24)
[2024-11-06] MEDS: Heparin Injection (Vial) 5,000 UNIT/ML VIAL 5000 UNIT SC ×2 (09:24→21:49)
[2024-11-06] MEDS: Gabapentin 100 MG Capsule PO ×3 (09:31→17:54)
[2024-11-06 12:26] LABS: Bedside Glucose 163 mg/dL (74-106)
--- NOTE | 2024-11-06 15:56 | PN.HOSP_ITS ---
Reason for Visit Reason for Visit: Diagnoses Morbid (severe) obesity due to excess calories (11/04/24) Tubulo-interstitial nephritis, not specified as acute or chronic (11/04/24) Calculus of ureter (11/04/24) Acute cystitis with hematuria (11/04/24) Benign prostatic hyperplasia without lower urinary tract symptoms (11/04/24) Chronic prostatitis (11/04/24) Difficulty in walking, not elsewhere classified (11/04/24) Fever presenting with conditions classified elsewhere (11/04/24) Weakness (11/04/24) Traumatic ischemia of muscle, initial encounter (11/04/24) Unspecified fall, initial encounter (11/04/24) Unspecified place in unspecified non-institutional (private) residence as the place of occurrence of the external cause (11/04/24) Body mass index [BMI] 45.0-49.9, adult (11/04/24) Objective Data Objective Data Vital Signs: Vital Signs Temp Pulse Resp BP Pulse Ox O2 Del Method O2 Flow Rate 98 F 87 16 148/80 H 95 Room Air 95 11/06/24 14:00 11/06/24 14:28 11/06/24 14:00 11/06/24 14:00 11/06/24 10:59 11/06/24 14:00 11/06/24 14:00 Oxygen Flow Rate (L/min) 95 Oxygen Delivery Method Room Air Weight: 209 lb 14.081 oz Body Mass Index (BMI) 30.9 Intake & Output: Intake and Output for Last 24 Hours 11/04/24 11/05/24 11/06/24 23:59 23:59 23:59 Intake Total 1350 / 1350 3080.75 / 3280.75 1304 / 1304 Output Total 700 / 700 Balance 1350 / 1350 3080.75 / 2980.75 604 / 604 Lab / Micro Data 11/06/24 06:05 11/06/24 06:05 Labs: Laboratory Results - last 24 hr 11/05/24 16:51: POC Glucose 99 11/05/24 21:40: POC Glucose 129 H 11/06/24 04:55: POC Glucose 109 H 11/06/24 06:05: WBC 6.9, RBC 3.00 L, Hgb 9.7 L, Hct 29.5 L, MCV 98.3 H, MCH 32.3 H, MCHC 32.9, RDW Std Deviation 47.0 H, RDW Coeff of Javid 13.1, Plt Count 172, MPV 9.9, Immature Gran % (Auto) 2.600 H, Neut % (Auto) 74.7 H, Lymph % (Auto) 10.1 L, [place] % (Auto) 12.4 H, Eos % (Auto) 0.1, Baso % (Auto) 0.1, Absolute Neuts (auto) 5.2, Absolute Lymphs (auto) 0.70 L, Nucleated RBC % 0, Sodium 135, Potassium 4.0, Chloride 106, Carbon Dioxide 17.4 L, Anion Gap 12, BUN 38 H, C reatinine 1.79 H, Estim Creat Clear Calc 39.98 L, Est GFR (MDRD) Non-Af 39 L, B UN/Creatinine Ratio 21.1 H, Glucose 125 H, Calcium 7.8, Phosphorus 2.4 L 11/06/24 11:27: POC Glucose 163 H Micro: Microbiology 11/04/24 21:02 Blood Culture (Wb) - Arm Left Blood Culture - Preliminary No growth in 48 hours. 11/04/24 21:00 Blood Culture (Wb) - Line Draw Blood Culture - Preliminary No growth in 48 hours. 11/04/24 18:50 Urine, Clean Catch Urine Culture - Preliminary Gram negative kelly Radiography Diagnostic Testing: Radiology Impression Venous Doppler Study 11/04/24 22:46 Interpretation Summary Deep veins of the bilateral lower extremities are patent and compressible segmentally. There is no evidence of bilateral lower extremity deep vein thrombosis. The bilateral great saphenous veins appear patent and compressible segmentally. Ordering Physician: Joel Baldwin Referring Physician: Mitch Mcwilliams Chi Performed By: Mary Gotti, JOSE, RVT Physical Exam Narrative Seen and examined Patient abdominal pain is resolved. Had left ureteric stone lithotripsy yesterday Patient admitted with generalized weakness, recurrent fall. Has poor balance. Patient has also found to have left distal ureter multiple stones. Recently right ureteric stent was removed after treatment for right kidney stones. Denies burning micturition/dysuria Physical exam General: Alert, Oriented x3, Cooperative HEENT: Atraumatic, PERRLA, EOMI, Normocephalic Oral: No Gingival or Mucosal Lesions/ Ulcerations Neck: Supple, No JVD, Negative Carotid Bruits. C-spine surgical scar Chest wall/Lungs: Air entry diminished in bilateral lung bases. No crepitation/rhonchi Cardiovascular: Regular rate, Regular Rhythm, Normal S1, Normal S2, No M/G/R Abdomen: Bowel Sounds Present, Soft, Non-Distended : No dysuria. No acute bilateral renal angle tenderness or along course of ureter Extremities: No edema, Capillary Refill Less than 3 Seconds Skin: No rashes, No breakdown Musculoskeletal: Muscle strength 4+/5 at knees and hip joints. No Tenderness to Palpation of Joints or Extremities Neurological: Cranial nerves II-XII grossly intact, DTR 2+/4. No acute focal neurological deficit. Psych/Mental Status: Flat affect Assessment & Plan Assessment/Plan (1) Rhabdomyolysis: QUALIFIERS: Rhabdomyolysis type: traumatic Encounter type: i nitial encounter Qualified Code(s): T79.6XXA - Traumatic ischemia of muscle, initial encounter (2) Fall at home: QUALIFIERS: Encounter type: initial encounter Qualified Code(s): W19.XXXA - Unspecified fall, initial encounter; Y92.009 - Unspecified place in unspecified non-institutional (private) residence as the place of occurrence of the external cause (3) Acute cystitis with hematuria: (4) Calculus of left ureter: (5) Pyelonephritis of left kidney: (6) Fever: QUALIFIERS: Fever type: due to other condition Qualified Code(s): R50.81 - Fever presenting with conditions classified elsewhere (7) Chronic prostatitis: (8) BPH (benign prostatic hyperplasia): QUALIFIERS: Lower urinary tract symptom presence: unspecified whether lower urinary tract symptoms present Qualified Code(s): N40.0 - Benign prostatic hyperplasia without lower urinary tract symptoms (9) Generalized weakness: (10) Ambulatory dysfunction: (11) Morbid obesity with BMI of 45.0-49.9, adult: PLAN: Plan 1. Elevated CK of 2,755 U/L present on admission consistent with mild rhabdomyolysis after recent Fall with prolonged down time with CKD stage IIIb - Admit to general medical floor. Aggressive IV fluid resuscitation. Creatinine increased from 1.67-1.79. Baseline around 1.4-1.8. 11/06: Repeat CK tomorrow morning. Patient will need rehab because of poor balance and unsteady gait and high risk of fall 2. Abnormal UA with suggestion of possible left pyelonephritis left ureteric calculus: UA positive of LE 500, WBC 10?25 cells, RBC 10?25, nitrite negative. CT shows left obstructive uropathy with associated left periureteral fat stranding suggestive of possible pyelonephritis. Bilateral nonobstructive nephrolithiasis. Right hydrocele. Prostatic calcifications. 11/06: Urine culture shows GNR 11,000?24,000 but will continue antibiotics as patient had urologic intervention. Patient recently had left renal calculus; s/p ECSWL and stent removal by Dr. Pham of urology on October 19, 2024: Patient was spiking temperature 92.3 ?F after ceftriaxone. Initially started on Zosyn but will change to IV Unasyn because Zosyn increased tubular creatinine secretion therefore pseudo increase in creatinine. Previous urine culture in September 2024 was negative but before that was positive for Enterococcus less than 1000 colonies Foreign Exchange Clerk consulted for left ureteric stent 11/06: He had cystoscopy ureteroscopy and lithotripsy of stone fragments in the left ureter but no stent. 3. Generalized Weakness with Ambulatory Dysfunction with acute on chronic Debility and Frequent Falls -folic acid normal. B12 pending. PT and OT ordered 4. Morbid obesity; with BMI of 46.8 this admission adding to the burden of disease outlined from #1 - #3 - Weight loss will be recommended. Check TSH. This complicates his case and may hamper recovery. 5. OA; with sciatica, chronic back pain plus history of cervical spine surgery: PT and OT 6. Essential Hypertension; on lisinopril -discontinue lisinopril because of increasing creatinine. 7. Hyperlipidemia; on atorvastatin - Hold statin because of increased CK 8. DM-2; of unknown control on metformin - Hold metformin while admitted. ADA diet. FSBS q. AC/HS plus lowest-intensity SSI. 9. History of MRSA - Noted. 10. Chronic venous stasis dermatitis: Venous duplex ruled out bilateral DVT or bilateral GSV superficial thrombophlebitis 11. DVT prophylaxis -SCDs Charges/Coding Visit Charges Inpatient E&M: 62559 Subs Hosp L2
--- NOTE | 2024-11-06 16:01 | CASEMGMT ---
Social Work SW met w/pt in regard to discharge plan. Pt walked 10 feet X 2 with therapy. SW spoke w/pt about going somewhere for rehab, rather than going home. Pt states he can go home. He states he has a neighbor who can come over and help him. SW inquired if his neighbor would come over several times in the day and night whenever pt needs to get up and get to the restroom, or needs help w/anything. Pt states yes. He states his neighbor's cooks for him, and his neighbor just installed a toilet for him as well. SW gave pt the list via [facility] home facilities in network w/pt's insurance, in pt's preferred geographic area and complete w/quality and resource use data. SW asked him to think about it, and reconsider. Pt states understanding. SW/CM to follow up tomorrow for appropriate discharge plan. ARMANDO Perez
[2024-11-06 17:07] LABS: Bedside Glucose 134 mg/dL (74-106)
[2024-11-06] MEDS: Tamsulosin HCl 0.4 MG Capsule PO (17:54)
[2024-11-06] MEDS: Acetaminophen 325 MG Tablet 650 MG PO (21:48)
[2024-11-06] MEDS: 0.9% Normal Saline (100mL Bag) 100 ML 15 ML IV (21:48)
[2024-11-06] MEDS: 0.9% Saline Lock 10 ML Syringe IV (21:49)
[2024-11-07] VITALS (7 sets, daily range): BP systolic 128–137; BP diastolic 65–78; PULSE 68–90; RESP 16–18; TEMP 36.6–37.3; O2SAT 94–98; BMI 31.3
[2024-11-07 00:35] LABS: Bedside Glucose 104 mg/dL (74-106)
[2024-11-07] MEDS: Acetaminophen 325 MG Tablet 650 MG PO (05:52)
[2024-11-07] MEDS: Ampicillin/Sulbactam 3 GM in 0.9% Normal Saline (100mL MB+) 100 ML IV ×2 (05:53→14:03)
[2024-11-07 07:21] LABS: Bedside Glucose 131 mg/dL (74-106)
[2024-11-07 07:34] LABS: Absolute Lymphocyte Count 0.77 X10^3/uL (0.83-4.51); Absolute Neutrophil Count 5.2 X10^3/uL (2.0-7.7); Basophil# 0.01 X10^3/uL; Basophil% 0.1 % (0-1); Eosinophil# 0.03 X10^3/uL; Eosinophils% 0.4 % (0-5); Hematocrit 28.2 % (40-54); Hemoglobin 9.5 g/dL (13.0-16.5); Lymphocyte # 0.77 X10^3/ul (0.83-4.51); Lymphocyte % 10.7 % (19-41); Mean Corp Hgb Conc 33.7 g/dL (32-36); Mean Corpuscular Hgb 32.2 pg (27.0-32.0); Mean Corpuscular Volume 95.6 fL (80-94); Mean Platelet Vol. 9.9 fl (6.2-12.0); Monocyte# 1.04 X10^3/uL; Monocyte% 14.4 % (0-10); NRBC Flagged by Analyzer 0.3 % (0-5); Neutrophil # 5.23 X10^3/uL (2.7-7.7); Neutrophil % 72.7 % (47-70); Platelet Count 188 K/mm3 (150-450); RBC Distribution Width CV 12.9 % (11.6-14.6); RBC Distribution Width SD 44.4 fl (35.1-43.9); Red Blood Count 2.95 M/mm3 (4.6-6.2); White Blood Count 7.2 K/mm3 (4.4-11.0)
[2024-11-07] MEDS: Lactobacillis Acidophilus 1 CAP PO ×3 (07:56→16:53)
[2024-11-07] MEDS: Gabapentin 100 MG Capsule PO ×2 (07:56→16:56)
[2024-11-07] MEDS: Cholecalciferol (Vit D3) 125 MCG CAPSULE (5,000 UNITS) PO (07:56)
[2024-11-07] MEDS: Ascorbic Acid 500 MG Tablet 1000 MG PO ×2 (07:56→16:53)
[2024-11-07] MEDS: Zinc Sulfate 50 mg zinc (220 mg) ORAL capsule PO (07:57)
[2024-11-07] MEDS: Heparin Injection (Vial) 5,000 UNIT/ML VIAL 5000 UNIT SC (07:57)
[2024-11-07 08:02] LABS: Anion Gap 11 (5-15); BUN 31 mg/dL (4-19); BUN/Creat Ratio 19.3 RATIO (10-20); Calcium,Total 7.9 mg/dL (7.6-11.0); Carbon Dioxide 17.4 mmol/L (21.0-32.0); Chloride 105 mmol/L (98-108); Creatinine, Serum 1.61 mg/dL (0.70-1.20); EST Glomerular Filtration Rate 44 (>60); Glucose 116 mg/dL (70-99); Potassium 3.6 mmol/L (3.3-5.1); Sodium Level 133 mmol/L (133-145)
[2024-11-07 08:18] LABS: CPK Total, Creatine Kinase 612 U/L (24-195)
--- NOTE | 2024-11-07 08:48 | TREXTCAR_ITS ---
Diet Diet Order/Speech Therapy: 11/05/24 16:35 Diet: Cardiac - Heart Healthy Food consistency:: Regular Liquid Consistency:: Regular/Thin Routine Orders/Code Status Suppository Type: Dulcolax 10mg Suppository Frequency: Daily PRN DC O2, CPAP, BIPAP needs Home O2 Discharge instructions: No Wound(s) left leg: Wound Type: Abrasion urethral: Wound Type: Surgical Incision Therapies Extremity Affected:: Bilateral Lower Physical Therapy: Eval and Treat Occupational Therapy: Eval and Treat Speech Therapy: Eval and Treat Problem/Diagnosis (1) Rhabdomyolysis: Status: Acute Code(s): M62.82 - Rhabdomyolysis (2) Fall at home: Status: Acute Code(s): W19.XXXA - Unspecified fall, initial encounter; Y92.009 - Unspecified place in unspecified non-institutional (private) residence as the place of occurrence of the external cause (3) Acute cystitis with hematuria: Status: Acute Code(s): N30.01 - Acute cystitis with hematuria (4) Calculus of left ureter: Status: Acute Code(s): N20.1 - Calculus of ureter (5) Pyelonephritis of left kidney: Status: Acute Code(s): N12 - Tubulo-interstitial nephritis, not specified as acute or chronic (6) Fever: Status: Acute Code(s): R50.9 - Fever, unspecified (7) Chronic prostatitis: Status: Chronic Code(s): N41.1 - Chronic prostatitis (8) BPH (benign prostatic hyperplasia): Status: Acute Code(s): N40.0 - Benign prostatic hyperplasia without lower urinary tract symptoms (9) Generalized weakness: Status: Acute Code(s): R53.1 - Weakness (10) Ambulatory dysfunction: Status: Acute Code(s): R26.2 - Difficulty in walking, not elsewhere classified (11) Morbid obesity with BMI of 45.0-49.9, adult: Status: Acute Code(s): E66.01 - Morbid (severe) obesity due to excess calories; Z68.42 - Body mass index [BMI] 45.0-49.9, adult Plan 74-year-old gentleman was admitted with fall at home around midnight, found on the floor, left shoulder and left hip pain. No arm shortening or rotation of the limb noted. 1. Elevated CK of 2,755 U/L present on admission consistent with mild rhabdomyolysis after recent Fall with prolonged down time with CKD stage IIIb - Admit to general medical floor. Aggressive IV fluid resuscitation. Creatinine increased from 1.67-1.79. Baseline around 1.4-1.8. 11/06: Repeat CK tomorrow morning. Patient will need rehab because of poor balance and unsteady gait and high risk of fall 11/07: CK 612. Has improved. Patient denies any muscle pain. 2. Abnormal UA with left ureteric calculus, UTI ruled out: UA positive of LE 500, WBC 10?25 cells, RBC 10?25, nitrite negative. CT shows left obstructive uropathy with associated left periureteral fat stranding suggestive of possible pyelonephritis. Bilateral nonobstructive nephrolithiasis. Right hydrocele. Prostatic calcifications. 11/06: Urine culture shows GNR 11,000?24,000 but will continue antibiotics as patient had urologic intervention. 11/07: Urine culture shows Burkholderia gladioli 11,000?25,000 colonies, not in pathology range therefore UTI ruled out. Discharged on 3 more days of empiric Augmentin because of urologic intervention during this admission Patient recently had left renal calculus; s/p ECSWL and stent removal by Dr. Pham of urology on October 19, 2024: Patient was spiking temperature 92.3 ?F after ceftriaxone. Initially started on Zosyn but will change to IV Unasyn because Zosyn increased tubular creatinine secretion therefore pseudo increase in creatinine. Previous urine culture in September 2024 was negative but before that was positive for Enterococcus less than 1000 colonies [employer] consulted for left ureteric stent 11/06: He had cystoscopy ureteroscopy and lithotripsy of stone fragments in the left ureter but no stent. 3. Generalized Weakness with Ambulatory Dysfunction with acute on chronic Debility and Frequent Falls -folic acid normal. B12 pending. PT and OT ordered 11/07: Patient is still generalized weak and required assistance for ambulation. 4. Morbid obesity; with BMI of 46.8 this admission -weight loss recommended. Repeat BMI 31.2 KG per square meter, seems one of the reading either admission or current may be wrong 5. OA; with sciatica, chronic back pain plus history of cervical spine surgery: PT and OT 4/2: Patient needs 2 people assist and hardly able to move 10 feet therefore qualifies for shelter. 6. Essential Hypertension; on lisinopril -discontinue lisinopril because of increasing creatinine. 7. Hyperlipidemia; on atorvastatin - Hold statin because of increased CK 8. DM-2; of unknown control on metformin - Hold metformin while admitted. ADA diet. FSBS q. AC/HS plus lowest-intensity SSI. 9. Chronic venous stasis dermatitis: Venous duplex ruled out bilateral DVT or bilateral GSV superficial thrombophlebitis 11. DVT prophylaxis -SCDs Discharge medication reconciliation done. Discharge follow-up instructions completed. Discharge process discussed with the patient and all questions were answered to patient's satisfaction. Follow with PCP in 1 to 2 weeks Total time spent, exact 35 minutes on discharge meds reconciliation, examination, coordination of care with nurses and ancillary staff, review of imaging and blood test and discussion with the patient on follow-up instructions. Allergies/Procedures Done in Hospital Allergies oxycodone HCl (From Percocet) Allergy (Intermediate, Verified 10/19/24 11:59) Other shaky, hot, sweaty, nauseated Type of Care/Length of Stay Estimated LOS: Convalescent Care Less Than 30 days Type of Care Needed: Skilled Rehab Potential: Good Prognosis: Good Additional Orders/Day of Discharge Day of Discharge: 11/07/24 Dietary and Speech Recommendations Dietitian Recommendations/Changes: As medically able, rec [facility] to CHO Controlled/ Cardiac Will monitor need for changes in pt nutritional status and will provide ONS and diet education at time of follow up as indicated. Discharge Plan Admission Admit Date/Time: 11/04/24 20:45 Primary Reason for Your Visit: Fall, ambulatory dysfunction and debility. Left ureteric stone Attending Provider: Wellington Stone Primary Care Provider: Mitch Mcwilliams [employer] Providers: Jose Manuel Pham; Joel Baldwin Discharge Orders/Prescriptions Prescriptions: New cholecalciferol (vitamin D3) 125 mcg (5,000 unit) Capsule 125 mcg PO DAILY Qty: 0 0RF amoxicillin-pot clavulanate [Augmentin] 500-125 mg tablet 1 tab PO BID 3 Days Qty: 6 0RF Continued atorvastatin 40 MG tablet 40 mg PO QHS lisinopril 5 MG tablet 5 mg PO DAILY metformin 500 MG tablet 500 mg PO BID gabapentin 100 mg Capsule 100 mg PO TIDCM 30 Days Qty: 90 0RF tamsulosin 0.4 mg Capsule 0.4 mg PO DAILY@1730 14 Days Qty: 14 0RF Changed acetaminophen 500 mg Tablet 1,000 mg PO Q8H PRN PRN (Reason: Pain Score 1-3) Qty: 0 0RF Referrals / Follow Up: Jose Manuel Pham MD [Med Staff - Active Staff] - Within 2 Weeks Mitch Mcwilliams Chi, MD [Primary Care Provider] - Disposition Disposition (needs filled in before D/C Order can be placed): Home, Self Care (1) Rhabdomyolysis Qualifiers: Encounter type: initial encounter Rhabdomyolysis type: traumatic Qualified Code(s): T79.6XXA - Traumatic ischemia of muscle, initial encounter (2) Fall at home Qualifiers: Encounter type: initial encounter Qualified Code(s): W19.XXXA - Unspecified fall, initial encounter; Y92.009 - Unspecified place in unspecified non- institutional (private) residence as the place of occurrence of the external cause (6) Fever Qualifiers: Fever type: due to other condition Qualified Code(s): R50.81 - Fever presenti ng with conditions classified elsewhere (8) BPH (benign prostatic hyperplasia) Qualifiers: Lower urinary tract symptom presence: unspecified whether lower urinary tract symptoms present Qualified Code(s): N40.0 - Benign prostatic hyperplasia withou t lower urinary tract symptoms
--- NOTE | 2024-11-07 09:39 | CASEMGMT ---
RN CM to pt room at this time to discuss DC Planning. Pt A&Ox4 and is resting comfortably in bed and is calm. This RN CM discussed how the pt has been doing with therapy (see notes). At this time, the pt adamantly refuses SNF, HHC, or OP Tx. Pt educated about TCU and still declines. Pt states, I will be fine once I get home. This RN CM provided concern that the pt could go home, fall again, and potentially return to the hospital (pt lives alone). Pt states that he has a neighbor that can provide sufficient assistance. Pt denies concerns at this time. SW made aware. Care Management to follow.
--- NOTE | 2024-11-07 10:48 | CASEMGMT ---
Addendum entered by Nathalia Conner 11/07/24 11:35: At this time, the pt RN states to this RN CM that the pt has changed his mind and is willing to go to a SNF. and RYANNE updated. Addendum entered by Nathalia Conner 11/07/24 11:01: TC to PT and PT made aware of the situation. PT states that they will work with the pt today and see what the pt can do. Will follow. Dr. Stone notified. Original Note: Dr. Stone notified of pt DC planning complications. MS3 Charge nurse states that the pt is requiring assistance x2. This RN CM and the MD to pt room at this time to discuss DC planning. MD and RN CM expressed concerns regarding pt discharging home alone as he has not been able to show independency. Pt is still adamant about going home and denies the need for SNF, OP Tx, or HHC. Pt states that he has a walker, lift chair, and a neighbor that can provide enough support. Pt is aware that [facility] staff is recommending further skilled therapy prior to returning home. Pt states understanding but continues to deny needs. Pt also refuses to let this RN CM contact his daughter regarding DC planning. RYANNE is aware.
--- NOTE | 2024-11-07 11:40 | CASEMGMT ---
CLEMENCIA CM to pt room at this time. Pt still has the SNF list that was provided. At this time, the pt states that he only wants to go to the TCU and would not provide further choices. SW updated.
--- NOTE | 2024-11-07 12:54 | CASEMGMT ---
Social Work- SW received notice that pt would like referral to TCU. SW completed referral. Pt accepted. Physician updated. Pt updated. SW remains available to follow. Plan: TCU; skilled level of care SY[facility] Herrera
[2024-11-07] MEDS: Insulin Lispro 100 UNIT/ML INSULN.PEN SC (13:26)
[2024-11-07 13:40] LABS: Bedside Glucose 274 mg/dL (74-106)
[2024-11-07 13:46] LABS: Bedside Glucose 166 mg/dL (74-106)
--- NOTE | 2024-11-07 15:20 | PCM.DC.SUM ---
Providers Date of Admission: 11/04/24 Date of Discharge: 11/07/24 Primary Care Physician: Dr. Mitch Mcwilliams MD Consultations 11/04/24 21:16 Consult: Urology Routine Consulting Provider: Jose Manuel Pham Reason for Consult: Lefr Renal Stone with Hydronephrosis; recurrent. EMERGENT Consult: No MD Notified: Yes Date Notified: 11/04/24 Time Notified: 20:48 Method of Notification: ED Physician Initiated Reason For Visit: RHABDOMYOLYSIS AFTER FALL WITH PROLONGED DOWN TIME Diagnosis Discharge Diagnosis (1) Rhabdomyolysis: Status: Acute Code(s): M62.82 - Rhabdomyolysis Qualifiers: Rhabdomyolysis type: traumatic Encounter type: initial encounter Qualified Code(s): T79.6XXA - Traumatic ischemia of muscle, initial encounter (2) Fall at home: Status: Acute Code(s): W19.XXXA - Unspecified fall, initial encounter; Y92.009 - Unspecified place in unspecified non-institutional (private) residence as the place of occurrence of the external cause Qualifiers: Encounter type: initial encounter Qualified Code(s): W19.XXXA - Unspecified fall, initial encounter; Y92.009 - Unspecified place in unspecified non-institutional (private) residence as the place of occurrence of the external cause (3) Acute cystitis with hematuria: Status: Acute Code(s): N30.01 - Acute cystitis with hematuria (4) Calculus of left ureter: Status: Acute Code(s): N20.1 - Calculus of ureter (5) Pyelonephritis of left kidney: Status: Acute Code(s): N12 - Tubulo-interstitial nephritis, not specified as acute or chronic (6) Fever: Status: Acute Code(s): R50.9 - Fever, unspecified Qualifiers: Fever type: due to other condition Qualified Code(s): R50.81 - Fever presenting with conditions classified elsewhere (7) Chronic prostatitis: Status: Chronic Code(s): N41.1 - Chronic prostatitis (8) BPH (benign prostatic hyperplasia): Status: Acute Code(s): N40.0 - Benign prostatic hyperplasia without lower urinary tract symptoms Qualifiers: Lower urinary tract symptom presence: unspecified whether lower urinary tract symptoms present Qualified Code(s): N40.0 - Benign prostatic hyperplasia without lower urinary tract symptoms (9) Generalized weakness: Status: Acute Code(s): R53.1 - Weakness (10) Ambulatory dysfunction: Status: Acute Code(s): R26.2 - Difficulty in walking, not elsewhere classified (11) Morbid obesity with BMI of 45.0-49.9, adult: Status: Acute Code(s): E66.01 - Morbid (severe) obesity due to excess calories; Z68.42 - Body mass index [BMI] 45.0-49.9, adult Plan 74-year-old gentleman was admitted with fall at home around midnight, found on the floor, left shoulder and left hip pain. No arm shortening or rotation of the limb noted. 1. Elevated CK of 2,755 U/L present on admission consistent with mild rhabdomyolysis after recent Fall with prolonged down time with CKD stage IIIb - Admit to general medical floor. Aggressive IV fluid resuscitation. Creatinine increased from 1.67-1.79. Baseline around 1.4-1.8. 11/06: Repeat CK tomorrow morning. Patient will need rehab because of poor balance and unsteady gait and high risk of fall 11/07: CK 612. Has improved. Patient denies any muscle pain. 2. Abnormal UA with left ureteric calculus, UTI ruled out: UA positive of LE 500, WBC 10?25 cells, RBC 10?25, nitrite negative. CT shows left obstructive uropathy with associated left periureteral fat stranding suggestive of possible pyelonephritis. Bilateral nonobstructive nephrolithiasis. Right hydrocele. Prostatic calcifications. /: Urine culture shows GNR 11,000?24,000 but will continue antibiotics as patient had urologic intervention. 11/07: Urine culture shows Burkholderia gladioli 11,000?25,000 colonies, not in pathology range therefore UTI ruled out. Discharged on 3 more days of empiric Augmentin because of urologic intervention during this admission Patient recently had left renal calculus; s/p ECSWL and stent removal by Dr. Pham of urology on October 19, 2024: Patient was spiking temperature 92.3 ?F after ceftriaxone. Initially started on Zosyn but will change to IV Unasyn because Zosyn increased tubular creatinine secretion therefore pseudo increase in creatinine. Previous urine culture in September 2024 was negative but before that was positive for Enterococcus less than 1000 colonies Network Architect consulted for left ureteric stent 11/06: He had cystoscopy ureteroscopy and lithotripsy of stone fragments in the left ureter but no stent. 11/07: Follow-up in urology office Dr. Pham. 3. Generalized Weakness with Ambulatory Dysfunction with acute on chronic Debility and Frequent Falls -folic acid normal. B12 pending. PT and OT ordered 11/07: Patient is still generalized weak and required assistance for ambulation. 4. Morbid obesity; with BMI of 46.8 this admission -weight loss recommended. Repeat BMI 31.2 KG per square meter, seems one of the reading either admission or current may be wrong 5. OA; with sciatica, chronic back pain plus history of cervical spine surgery: PT and OT 11/07: Patient needs 2 people assist and hardly able to move 10 feet therefore qualifies for senior living. 6. Essential Hypertension; on lisinopril -discontinue lisinopril because of increasing creatinine. 7. Hyperlipidemia; on atorvastatin - Hold statin because of increased CK 8. DM-2; of unknown control on metformin - Hold metformin while admitted. ADA diet. FSBS q. AC/HS plus lowest-intensity SSI. /2: Creatinine clearance more than 30 mL/min. Metformin regimen. 9. Chronic venous stasis dermatitis: Venous duplex ruled out bilateral DVT or bilateral GSV superficial thrombophlebitis 11. DVT prophylaxis -SCDs Discharge medication reconciliation done. Discharge follow-up instructions completed. Discharge process discussed with the patient and all questions were answered to patient's satisfaction. Follow with PCP in 1 to 2 weeks Total time spent, exact 35 minutes on discharge meds reconciliation, examination, coordination of care with nurses and ancillary staff, review of imaging and blood test and discussion with the patient on follow-up instructions. Medications at Discharge Home Medications atorvastatin 40 mg tablet 40 mg PO QHS CHOLESTEROL 11/07/18 lisinopril 5 mg tablet 5 mg PO DAILY blood pressure 04/25/19 metformin 500 mg tablet 500 mg PO BID diabetes 02/03/20 gabapentin 100 mg capsule 100 mg PO TIDCM pain 30 days #90 caps 12/03/21 tamsulosin 0.4 mg capsule 0.4 mg PO DAILY@1730 bph 14 days #14 caps 09/25/24 acetaminophen 500 mg tablet 1,000 mg (2 x 500 mg) PO Q8H PRN PRN Pain Score 1-3 #0 tabs 11/07/24 amoxicillin 500 mg-potassium clavulanate 125 mg tablet (Augmentin) 1 tab PO BID 3 days #6 tabs 11/07/24 cholecalciferol (vitamin D3) 125 mcg (5,000 unit) capsule 125 mcg PO DAILY #0 caps 11/07/24 Physical Exam Narrative Seen and examined For last 2 to 3 days patient very resistant to go to senior living but required 2 people to assist even to make him stand up and hardly walk 10 feet. Lastly had agreed to go to SNF. Patient abdominal pain is resolved. Had left ureteric stone lithotripsy 11/05/2024. He moved bowel Patient admitted with generalized weakness, recurrent fall. Has poor balance. Patient has also found to have left distal ureter multiple stones. Recently right ureteric stent was removed after treatment for right kidney stones. Denies burning micturition/dysuria Physical exam General: Alert, Oriented x3, Cooperative. Morbid obesity BMI 31.2 kg/m? HEENT: Atraumatic, PERRLA, EOMI, Normocephalic Oral: No Gingival or Mucosal Lesions/ Ulcerations Neck: Supple, No JVD, Negative Carotid Bruits. C-spine surgical scar Chest wall/Lungs: Air entry diminished in bilateral lung bases. No crepitation/rhonchi Cardiovascular: Regular rate, Regular Rhythm, Normal S1, Normal S2, No M/G/R Abdomen: Bowel Sounds Present, Soft, Non-Distended : No dysuria. No acute bilateral renal angle tenderness or along course of ureter Extremities: No edema, Capillary Refill Less than 3 Seconds Skin: No rashes, No breakdown Musculoskeletal: Muscle strength 4+/5 at knees and hip joints. No Tenderness to Palpation of Joints or Extremities Neurological: Cranial nerves II-XII grossly intact, DTR 2+/4. No acute focal neurological deficit. Psych/Mental Status: Flat affect Weight / BMI Weight Weight: 211 lb 6.773 oz Body Mass Index (BMI) 31.3 ABG / Lab / Microbiology Data 11/07/24 07:04 11/07/24 07:04 Laboratory: Laboratory Results - last 24 hr 11/06/24 16:43: POC Glucose 134 H 11/07/24 00:00: POC Glucose 104 11/07/24 05:49: POC Glucose 131 H 11/07/24 07:04: WBC 7.2, RBC 2.95 L, Hgb 9.5 L, Hct 28.2 L, MCV 95.6 H, MCH 32.2 H, MCHC 33.7, RDW Std Deviation 44.4 H, RDW Coeff of Javid 12.9, Plt Count 188, MPV 9.9, Immature Gran % (Auto) 1.700 H, Neut % (Auto) 72.7 H, Lymph % (Auto) 10.7 L, Morrill % (Auto) 14.4 H, Eos % (Auto) 0.4, Baso % (Auto) 0.1, Absolute Neuts (auto) 5.2, Absolute Lymphs (auto) 0.77 L, Nucleated RBC % 0.3, Sodium 133, Potassium 3.6, Chloride 105, Carbon Dioxide 17.4 L, Anion Gap 11, BUN 31 H, Creatinine 1.61 H, Estim Creat Clear Calc 44.60 L, Est GFR (MDRD) Non-Af 44 L, BUN/Creatinine Ratio 19.3, Glucose 116 H, Calcium 7.9, Total Creatine Kinase 612 H 11/07/24 11:25: POC Glucose 274 H 11/07/24 13:25: POC Glucose 166 H Microbiology: Microbiology 11/04/24 21:00 Blood Culture (Wb) - Line Draw Blood Culture - Preliminary 11/04/24 18:50 Urine, Clean Catch Urine Culture - Final Burkholderia gladioli 11/04/24 21:02 Blood Culture (Wb) - Arm Left Blood Culture - Preliminary No growth in 48 hours. D/C Instructions DC O2, CPAP, BIPAP Needs Home O2 Discharge instructions: No Meaningful Use Info Meaningful Use Meaningful Use Diagnoses (Choose all that apply): None applicable Ischemic Stroke Statin Dosing Therapy Reference: STATIN DOSE THERAPY REFERENCE: * Patients > 75 years receive moderate or high dose statin therapy. * Patients 75 years or YOUNGER should receive HIGH intensity statin dose unless contraindicated. You will be required to document reason for non-treatment if statin daily dose does not meet guidelines. HIGH DOSE STATIN THERAPY DAILY Atorvastatin > than or = to 40 mg Rosuvastatin > than or = to 20 mg Amlodipine + Atorvastatin > than or = to 2.5/40 mg Ezetimibe + Simvastatin 10/80 mg Simvastatin 80mg Discharge Plan Admission Admit Date/Time: 11/04/24 20:45 Primary Reason for Your Visit: Fall, ambulatory dysfunction and debility. Left ureteric stone Attending Provider: Wellington Stone Primary Care Provider: Mitch Mcwilliams [employer] Providers: Jose Manuel Pham; Joel Baldwin Discharge Orders/Prescriptions Prescriptions: New cholecalciferol (vitamin D3) 125 mcg (5,000 unit) Capsule 125 mcg PO DAILY Qty: 0 0RF amoxicillin-pot clavulanate [Augmentin] 500-125 mg tablet 1 tab PO BID 3 Days Qty: 6 0RF Continued atorvastatin 40 MG tablet 40 mg PO QHS lisinopril 5 MG tablet 5 mg PO DAILY metformin 500 MG tablet 500 mg PO BID gabapentin 100 mg Capsule 100 mg PO TIDCM 30 Days Qty: 90 0RF tamsulosin 0.4 mg Capsule 0.4 mg PO DAILY@1730 14 Days Qty: 14 0RF Changed acetaminophen 500 mg Tablet 1,000 mg PO Q8H PRN PRN (Reason: Pain Score 1-3) Qty: 0 0RF Referrals / Follow Up: Jose Manuel Pham MD [Med Staff - Active Staff] - Within 2 Weeks Mitch Mcwilliams Chi, MD [Primary Care Provider] - Disposition Disposition (needs filled in before D/C Order can be placed): Home, Self Care Charges/Coding Visit Charges Inpatient E&M: 60879 Disch Hosp >30min
--- NOTE | 2024-11-07 16:30 | CASEMGMT ---
Social Work- Physician feels that pt is medically ready for discharge. SW faxed paperwork to TCU admissions. Pt and bedside nurse updated on discharge plans. Plan: TCU; skilled level of care SY[facility] Herrera
[2024-11-07] MEDS: Tamsulosin HCl 0.4 MG Capsule PO (16:53)
[2024-11-07 17:57] LABS: Bedside Glucose 139 mg/dL (74-106)
== END 2024-11-07 18:33 | DRG 690 ==
LOC: ED 18:54 → MS3 20:57
PROVIDERS: Physician Assistant; Urology; Admitting Provider Internal Medicine; Emergency Provider Emergency Medicine; PCP Family Medicine Geriatric Medicine; Visit Provider Internal Medicine
PROC: 0TJ98ZZ Inspection of Ureter, Via Natural or Artificial Opening Endoscopic (ICD-10-PCS; CPT 52352; principal; 2024-11-05 11:50)
DX: N13.6 Pyonephrosis (principal); M62.82 Rhabdomyolysis; N20.1 Calculus of ureter; Z68.42 Body mass index [BMI] 45.0-49.9, adult; N30.01 Acute cystitis with hematuria; E11.22 Type 2 diabetes mellitus with diabetic chronic kidney disease; E66.01 Morbid (severe) obesity due to excess calories; A49.8 Other bacterial infections of unspecified site; N18.32 Chronic kidney disease, stage 3b; I12.9 Hypertensive chronic kidney disease with stage 1 through stage 4 chronic kidney disease, or unspecified chronic kidney disease; E78.00 Pure hypercholesterolemia, unspecified; E86.0 Dehydration; M54.30 Sciatica, unspecified side; I87.8 Other specified disorders of veins; M19.90 Unspecified osteoarthritis, unspecified site; M47.819 Spondylosis without myelopathy or radiculopathy, site unspecified; W19.XXXA Unspecified fall, initial encounter; S80.812A Abrasion, left lower leg, initial encounter; N12 Tubulo-interstitial nephritis, not specified as acute or chronic; R26.89 Other abnormalities of gait and mobility; Z79.891 Long term (current) use of opiate analgesic; Z79.84 Long term (current) use of oral hypoglycemic drugs; N40.0 Benign prostatic hyperplasia without lower urinary tract symptoms; R53.81 Other malaise; G89.29 Other chronic pain; N43.3 Hydrocele, unspecified; Z79.02 Long term (current) use of antithrombotics/antiplatelets; Z79.899 Other long term (current) drug therapy; Z88.5 Allergy status to narcotic agent; Z68.31 Body mass index [BMI] 31.0-31.9, adult; N41.1 Chronic prostatitis; Y92.009 Unspecified place in unspecified non-institutional (private) residence as the place of occurrence of the external cause; R50.9 Fever, unspecified; Z75.1 Person awaiting admission to adequate facility elsewhere
CPT/HCPCS: 36415; 70450; 71250; 71275; 72125; 73502; 74176; 76000; 80048; 80053; 80061; 81001; 82360; 82550; 82607; 82746; 82962; 83036; 83605; 83690; 83735; 84100; 84443; 85025; 85379; 87040; 87077; 87086; 87088; 88300; 93005; 93970; 97162; 97166; 97530; 97535; 99285; P9612; Q9967; A4216; C1769; J0295; J2405

== ENCOUNTER 2024-11-07 18:54 | Inpatient (IN) | payer MEDICARE, OTHER, SELFPAY ==
[2024-11-07 19:21] VITALS: BP 146/75; PULSE 67; RESP 16; TEMP 36.6; O2SAT 96
--- NOTE | 2024-11-07 20:13 | HP.PCM_ITS ---
HPI - General General Date of Admission: 11/07/24 Date of Service: 11/08/24 Chief Complaint: Here for rehabilitation. HPI Narrative AARON GOMEZ, is a 74 Male who presents with followin11/04/2024 [facility] ED fall. Lying on floor, left abdominal pain, feels like kidney stone.. History of kidney stone, right ureteral stent removed 1 week ago. Confused, lying on floor for prolonged period. CK 2755, c/w rhabdomyolysis, IV fluids given. X-ray right hip negative, urinalysis consistent UTI, Rocephin given. CT shows left ureteral stones x 2, 4mm, 6mm. 11/04/2024 Admit [facility]. IV fluids for rhabdomyolysis. D-dimer 3.6, CTA chest to rule out pulmonary embolism, CTA chest negative for pulmonary embolism. Zosyn IV for urinary tract infection.. Consult Dr. Pham for left ureteral stones x 2. PT/OT for debility. 11/05/2024 Dr. Pham performed cystoscopy, ureteroscopy laser lithotripsy of stone fragments in the left ureter, and no stent. 11/05/2024 Continue IV fluids for rhabdomyolysis, acute kidney injury. Unasyn IV for UTI. PT/OT for debility. 11/06/2024 Doppler ultrasound bilateral lower extremity negative dvt. 11/06/2024 Repeat CK tomorrow. Urine culture gnr 11,000 - 24,000 continue antibiotics 2/ urologic procedure. PT/OT SNF. 11/07/2024 Admit to TCU with debility, here for rehabilitation, strengthening, prior to discharge home alone. [facility] Medical History Loss of hearing Walker as ambulation aid High cholesterol History of stress test Wears glasses History of MRSA infection Non-smoker Physical debility Debility Closed head injury Frequent falls Sciatica Kidney stones Decreased hearing Hyperlipemia Hypertension Chronic back pain Arthritis Type 2 diabetes mellitus Home Medications ?Medication ?Instructions ?Recorded ?Last Taken ?Type atorvastatin 40 mg tablet 40 mg PO QHS CHOLESTEROL 09/2610/18/24 History lisinopril 5 mg tablet 5 mg PO DAILY blood pressure 04/25/19 10/18/24 History metformin 500 mg tablet 500 mg PO BID diabetes 02/0210/18/24 History gabapentin 100 mg capsule 100 mg PO TIDCM pain 30 days #90 12/03/21 10/18/24 Rx caps tamsulosin 0.4 mg capsule 0.4 mg PO DAILY@1730 bph 14 days 09/25/24 10/18/24 Rx #14 caps acetaminophen 500 mg tablet 1,000 mg (2 x 500 mg) PO Q 8H PRN 11/07/24 11/07/24 R x PRN Pain Score 1-3 #0 tabs amoxicillin 500 mg-potassium 1 tab PO BID uti 3 days # 6 tabs 11/07/24 Unknown Rx clavulanate 125 mg tablet (Augmentin) cholecalciferol (vitamin D3) 125 125 mcg PO DAILY supp lement #0 caps 11/07/24 11/07/24 Rx mcg (5,000 unit) capsule Allergy/AdvReac Type Severity Reaction Status Date / Time oxycodone HCl (From Percocet) Allergy Intermediate Other Verified 10/19/24 11:59 Family History Father Mental disorder Heart disease Mother Heart disease High cholesterol Surgical History History of kidney stones History of cervical spinal surgery Social History household members: none Smoking Status: Never smoker alcohol intake: never substance use type: does not use what type of physical activity do you participate in: walking frequency: daily ROS Constitutional Constitutional: Reports weakness; Denies chills, fever(s) or weight gain ENT HEENT: Denies headache(s), nasal congestion or nasal discharge Cardiovascular Cardiovascular: Denies chest pain or palpitations Respiratory/Chest Respiratory/Chest: Denies cough, excessive phlegm production or shortness of breath with exertion Gastrointestinal Gastrointestinal: Denies abdominal pain, nausea or vomiting Genitourinary Genitourinary: Denies dysuria Musculoskeletal Musculoskeletal: Denies joint pain or joint swelling Integumentary Integumentary: Denies rash or wounds Neurologic Neurologic: Denies focal weakness, numbness or tingling Psychiatric Psychiatric: Denies anxiety, auditory hallucinations, depression, homicidal ideation or suicidal ideation Vital Signs Vital Signs Vital Signs: 11/07/24 19:21 Temperature 98 F Temperature Source Temporal Pulse Rate 67 Respiratory Rate 16 Blood Pressure 146/75 H Blood Pressure Mean 98 Blood Pressure Source Monitor Blood Pressure Position Semi-Fowlers Blood Pressure Location Left Arm Pulse Ox 96 Oxygen Delivery Method Room Air Physical Exam Const alert General Appearance: cooperative HEENT normocephalic Eyes PERRL and EOMs intact bilaterally Neck supple, no JVD and no carotid bruits Resp normal respiratory effort, normal air movement and clear to auscultation bilaterally Cardio regular rate and regular rhythm GI normal to inspection, nondistended, normoactive bowel sounds, non-tender and non-distended Extremity normal capillary refill General Extremity: Negative for edema Skin no rashes or lesions noted General Skin Exam: no breakdown Psych affect normal Appearance: appropriate Assessment & Plan Assessment/Plan (1) Debility: (2) Rhabdomyolysis: QUALIFIERS: Encounter type: initial encounter Rhabdomyolysis type: traumatic Qualified Code(s): T79.6XXA - Traumatic ischemia of muscle, initial encounter (3) Calculus of left ureter: (4) UTI (urinary tract infection): (5) Acute kidney injury: (6) Type 2 diabetes mellitus with hyperglycemia: (7) Essential (primary) hypertension: (8) Hyperlipidemia: (9) Muscle spasm: (10) BPH (benign prostatic hyperplasia): QUALIFIERS: Lower urinary tract symptom presence: unspecified whether lower urinary tract symptoms present Qualified Code(s): N40.0 - Benign prostatic hyperplasia without lower urinary tract symptoms (11) Diabetic polyneuropathy: PLAN: Plan 74 year old male with below past medical history hospitalized for left ureteral stones x 2, underwent cystoscopy, ureteroscopy laser lithotripsy of stone fragments in the left ureter, no stent 11/05/[address] Pham, complicated by rhabdomyolysis, urinary tract infection, acute kidney injury, admitted to TCU with debility, here for rehabilitation, strengthening, prior to discharge home alone. * Debility - PT/OT. * Pain - Tylenol 1000mg q6 prn pain (1-10). * Bowel - senna/colace 1 tablet bid, Magnesium citrate 300mL po daily prn. * Adult immunization - Administer pneumonia vaccine, covid vaccine, flu vaccine as appropriate. * DVT prophylaxis - Lovenox 30mg sc daily. * Burkholderia Gladioli UTI - Augmentin 500mg bidcm thru 11/10/2024. * Hyperlipidemia - Atorvastatin 40mg qhs. * Diabetic neuropathy - Gabapentin 100mg tidcm. * Hypertension - Lisinopril 5mg daily. * Skin irritation - Calmoseptine topical bid. * Diabetes Mellitus II - Metformin 500mg bidcm. * BPH - Tamsulosin 0.4mg daily.
[2024-11-07 20:18] VITALS: RESP 18
[2024-11-07] MEDS: Menthol/Lanolin/Calamine/Znox 113 GM Tube 1 APPLIC TOPICAL (22:13)
[2024-11-07] MEDS: 0.9% Saline Lock 10 ML Syringe IV (22:13)
[2024-11-07] MEDS: metFORMIN HCl 500 MG Tablet PO (22:13)
[2024-11-07] MEDS: Amox/Clavulanate 500 MG Tablet PO (22:14)
[2024-11-07] MEDS: Atorvastatin Calcium 40 MG Tablet PO (22:15)
[2024-11-07] MEDS: Senna/Docusate Sodium 1 Tablet PO (22:15)
[2024-11-07] MEDS: Acetaminophen 500 MG Tablet 1000 MG PO (22:21)
[2024-11-07 22:47] LABS: Bedside Glucose 123 mg/dL (74-106)
[2024-11-08] MEDS: Acetaminophen 500 MG Tablet 1000 MG PO ×2 (06:34→20:08)
[2024-11-08] MEDS: Enoxaparin 30 MG/0.3 ML Syringe SC (06:35)
[2024-11-08 06:39] LABS: Bedside Glucose 107 mg/dL (74-106)
[2024-11-08 08:02] LABS: Absolute Lymphocyte Count 1.08 X10^3/uL (0.83-4.51); Absolute Neutrophil Count 6.2 X10^3/uL (2.0-7.7); Basophil# 0.03 X10^3/uL; Basophil% 0.3 % (0-1); Eosinophil# 0.07 X10^3/uL; Eosinophils% 0.8 % (0-5); Hemoglobin 10.7 g/dL (13.0-16.5); Lymphocyte # 1.08 X10^3/ul (0.83-4.51); Lymphocyte % 12.5 % (19-41); Mean Corp Hgb Conc 33.4 g/dL (32-36); Mean Corpuscular Hgb 32.1 pg (27.0-32.0); Mean Corpuscular Volume 96.1 fL (80-94); Mean Platelet Vol. 9.5 fl (6.2-12.0); Monocyte# 1.04 X10^3/uL; NRBC Flagged by Analyzer 0 % (0-5); Neutrophil # 6.24 X10^3/uL (2.7-7.7); Neutrophil % 72.3 % (47-70); Platelet Count 243 K/mm3 (150-450); RBC Distribution Width SD 46.3 fl (35.1-43.9); Red Blood Count 3.33 M/mm3 (4.6-6.2); White Blood Count 8.6 K/mm3 (4.4-11.0)
[2024-11-08 08:10] VITALS: BP 128/71; PULSE 81; RESP 17; TEMP 36.9; O2SAT 99
[2024-11-08] MEDS: metFORMIN HCl 500 MG Tablet PO ×2 (08:20→17:41)
[2024-11-08] MEDS: Menthol/Lanolin/Calamine/Znox 113 GM Tube 1 APPLIC TOPICAL ×2 (08:20→20:09)
[2024-11-08] MEDS: Lisinopril 5 MG Tablet PO (08:20)
[2024-11-08] MEDS: Amox/Clavulanate 500 MG Tablet PO ×2 (08:20→17:41)
[2024-11-08] MEDS: Gabapentin 100 MG Capsule PO ×3 (08:20→17:41)
[2024-11-08] MEDS: traMADol 50 MG Tablet PO ×2 (08:23→22:51)
[2024-11-08 08:31] LABS: Anion Gap 14 (5-15); BUN 28 mg/dL (4-19); BUN/Creat Ratio 18.8 RATIO (10-20); Calcium,Total 8.6 mg/dL (7.6-11.0); Carbon Dioxide 17.2 mmol/L (21.0-32.0); Chloride 107 mmol/L (98-108); Creatinine, Serum 1.48 mg/dL (0.70-1.20); EST Glomerular Filtration Rate 49 (>60); Estimated Creatinine Clearance 49.26 ml/min (50-250); Glucose 113 mg/dL (70-99); Potassium 3.8 mmol/L (3.3-5.1); Sodium Level 138 mmol/L (133-145)
[2024-11-08] MEDS: Tuberculin,Purif.prot.deriv. 50 TU/ML Vial 0.1 ML ID (12:39)
--- NOTE | 2024-11-08 14:50 | PCM.PN.DRR ---
Documented by User: Mary Gamboa 11/08/24 15:35 TCU RX Drug Regimen Review Subjective/Objective Subjective/Objective Subjective: 74 YOM admitted to TCU 11/07/24 s/p hospitalization at [facility] for rhabdomyolysis secondary to a fall. Hospitalization also complicated by a UTI requiring antiboitics. Patient admitted to TCU for rehabilitation and strengthening prior to discharge home where he resides alone. Objective: Allergies oxycodone HCl (From Percocet) Allergy (Intermediate, Verified 10/19/24 11:59) Other shaky, hot, sweaty, nauseated Current Medications Generic Name Dose Route Start Last Admin Trade Name Freq PRN Reason Stop Dose Admin Acetaminophen 1,000 mg 11/07/24 20:25 11/08/24 06:34 Acetaminophen 500 Mg Tablet PO 1,000 mg Q6 PRN Administration Pain Score 1-5 Amoxicillin/Clavulanate Potassium 500 mg 11/07/24 22:00 11/08/24 08:20 Amox/Clavulanate 500 Mg Tablet PO 11/10/24 08:01 500 mg BIDCM THAD Administration Atorvastatin Calcium 40 mg 11/07/24 22:00 11/07/24 22:15 Atorvastatin Calcium 40 Mg Tablet PO 40 mg QHS THAD Administration Baclofen 10 mg 11/08/24 07:30 Baclofen 10 Mg Tablet PO TID PRN MUSCLE SPASM Calamine/Phenol 1 applic 11/07/24 22:00 11/08/24 08:20 Menthol/Lanolin/Calamine/Znox 113 Gm Tube TOPICAL 1 applic BID THAD Administration Protocol Enoxaparin Sodium 30 mg 11/08/24 06:00 11/08/24 06:35 Enoxaparin 30 Mg/0.3 Ml Syringe SC 30 mg DAILY@0600 THAD Administration Gabapentin 100 mg 11/08/24 07:45 11/08/24 12:39 Gabapentin 100 Mg Capsule PO 100 mg TIDCM THAD Administration Lisinopril 5 mg 11/08/24 10:00 11/08/24 08:20 Lisinopril 5 Mg Tablet PO 5 mg DAILY THAD Administration Protocol Magnesium Citrate 300 ml 11/07/24 20:24 Magnesium Citrate 300 Ml PO DAILY PRN Constipation Metformin HCl 500 mg 11/07/24 22:00 11/08/24 08:20 Metformin Hcl 500 Mg Tablet PO 500 mg BIDCM THAD Administration Senna/Docusate Sodium 1 tablet 11/07/24 22:00 11/08/24 08:26 Senna/Docusate Sodium 1 Tablet PO Not Given BID [facility] Sodium Chloride 10 - 40 ml 11/07/24 20:15 11/07/24 22:13 0.9% Saline Lock 10 Ml Syringe IV 10 ml UD PRN Administration SALINE FLUSH Tamsulosin HCl 0.4 mg 11/08/24 17:30 Tamsulosin Hcl 0.4 Mg Capsule PO DAILY@1730 [facility] Tramadol HCl 50 mg 11/08/24 07:30 11/08/24 08:23 Tramadol 50 Mg Tablet PO 50 mg Q6H PRN PRN Administration Pain Score 6-10 or Pre PT/OT Tuberculin PPD 0.1 ml 11/15/24 10:00 Tuberculin,Purif.Prot.Deriv. 50 Tu/Ml Vial ID 11/15/24 10:01 X1 ONE Problem List Essential (primary) hypertension (Acute) Type 2 diabetes mellitus with hyperglycemia (Acute) BPH (benign prostatic hyperplasia) (Acute) UTI (urinary tract infection) (Acute) Calculus of left ureter (Acute) Rhabdomyolysis (Acute) Acute kidney injury (Acute) Muscle spasm (Acute) Diabetic polyneuropathy (Acute) Hyperlipidemia (Acute) Debility (Acute) Vital Signs Temp Pulse Resp BP Pulse Ox O2 Del Method 98.5 F 81 17 128/71 H 99 Room Air 11/08/24 08:10 11/08/24 08:10 11/08/24 08:10 11/08/24 08:10 11/08/24 08:10 11/08/24 08:10 Oxygen Delivery Method Room Air Weight: 98.997 kg Sodium 138 mmol/L (133-145) 11/08/24 07:51 Potassium 3.8 mmol/L (3.3-5.1) 11/08/24 07:51 Chloride 107 mmol/L (98-108) 11/08/24 07:51 Carbon Dioxide 17.2 mmol/L (21.0-32.0) L 11/08/24 07:51 Anion Gap 14 (5-15) 11/08/24 07:51 BUN 28 mg/dL (4-19) H 11/08/24 07:51 Creatinine 1.48 mg/dL (0.70-1.20) H 11/08/24 07:51 Est GFR (MDRD) Non-Af 49 (>60) L 11/08/24 07:51 BUN/Creatinine Ratio 18.8 RATIO (10-20) 11/08/24 07:51 Glucose 113 mg/dL (70-99) H 11/08/24 07:51 Assessment/Plan: 1. Pain: Tylenol 1000mg PO Q6h PRN Pain 1-5, Tramadol 50mg PO Q6h PRN Pain 6-10. Please continue to monitor for increased/decreased s/s pain, PRN medication usage, LFT with prolonged/ frequent use, oversedation with tramadol usage, CrCl (49 mL/min on 11/08/24). - The patient has used 2 doses of Tylenol and 1 dose of tramadol for back pain rated 8/10. Post medication pain rated 0-4/10. Pain appears managed on current regimen at this time. Please continue to monitor usage and consider changing from PRN to scheduled if frequent usage is continuously needed. 2. UTI: Augmentin 500mcg PO BID thru 11/10/24. Please continue to monitor for resolution of infection and signs of re-infection, micro data (no new results), n/v/d while on antibiotics. 3. HTN/ HLD: Lisinopril 5mg PO Daily, Lipitor 40mg PO QHS. Please continue to monitor BP (range 128-146/71-75), renal function (Scr 1.48 on 11/08), potassium (last 3.8 on 11/08), lipid panel annually or sooner if clinically indicated ( last lipid panel on file from 2018) 4. BPH: Flomax 0.4mg PO daily. Please continue to monitor BP, urinary frequency/urgency, urinary retention. 5. Muscle spasm: Baclofen 10mg PO TID PRN. Please continue to monitor for dizziness, confusion, drowsiness, headache. -To date, the patient has not required any doses of medication. 6. Type II Diabetes: metformin 500mg PO BID. Please continue to monitor A1c (last 6/6% on 11/04/24), GFR (49 on 11/08), n/v/d. 7. Diabetic neuropathy: Gabapentin 100mg PO TID. Please continue to monitor for increased drowsiness, renal function (CrCl 49mL/min on 11/08). This is a Beer's criteria medication which can increase the risk of falls/fractures in the elderly. Please evaluate risk v. benefit of use in this patient given history of falls. Please consider decreaseing dose to 100mg PO BID based on renal function (recommendation is max of 2 administrations/day), thank you. 8. DVT Prophylaxis: Lovenox 40mg SC Daily. Please continue to monitor for s/s bleeding/bruising, s/s clot formation, H/H (hgb 10.7, hct 32% on 11/08), platelets (243 on 11/08), renal function (CrCl 49 mL/min on 11/08) 9. Skin Integrity: Calmoseptine topically BID. Please continue to monitor for skin irritation, redness, skin breakdown, ulcer formation. 10. Bowel: Senna/Docusate 1 tab PO BID, magnesium Citrate 300mL PO daily PRN. Please continue to monitor for increased/decreased constipation and/or diarrhea. If diarrhea develops, please discontinue therapy or change scheduled medications to PRN to avoid administration. - The patient's last documented BM is 11/08/24. Bowel regimen appears effective at this time. Assessment/Plan for indications treated with psychotropic medications: -The patient is not being maintained on any psychotropic medications at time of medication list review. Medical chart and medication regimen reviewed. The following medication irregularities or issues were identified: 1. Lipitor: patient is on Lipitor for hyperlipidemia. Last lipid panel on file is from 2019. Please consider obtaining a lipid panel if clinically indicated, thank you. 2. Diabetic neuropathy: Gabapentin 100mg PO TID. This is a Beer's criteria medication which can increase the risk of falls/fractures in the elderly. Please evaluate risk v. benefit of use in this patient given history of falls. Additionally, please consider decreasing gabapentin dose to 100mg PO BID based on renal function (recommendation is max of 2 administrations/day), thank you. Date Date of Note: 11/08/24 Documented by User: Dr. Mitch Mcwilliams MD 11/08/24 17:32 TCU RX Drug Regimen Review Provider Comments Provider responsibility Provider Comments to Recommendations by Pharmacy Disagree: Define (Will order lipid panel, maintain gabapentin 100mg tid, mcfp use, stable, beneficial.)
--- NOTE | 2024-11-08 15:47 | CASEMGMT ---
Social Work SW met with patient to complete initial assessment. Pt known to this worker from previous stay. Verified contacts. Pt confirmed code status as full code. SW requested dtr provide copies of advance directives to place on file. Pt agreed but unsure if dtr knows where they are. SW educated to Medicare benefit and copay coverage. SW encouraged pt to get a medical alert. Pt reluctantly agreed. SW to provide resources. SW discussed additional assistance in the home for meals and laundry, especially since pt reported dtr working two jobs. Pt agreed to care coordination referral. SW to place. SW will continue to follow for DC planning assistance. Bette Sanchez MSW RN GYNECOLOGY
[2024-11-08 16:46] LABS: Bedside Glucose 155 mg/dL (74-106)
[2024-11-08] MEDS: Tamsulosin HCl 0.4 MG Capsule PO (17:41)
[2024-11-08 20:00] VITALS: PULSE 60; RESP 16; O2SAT 94
[2024-11-08] MEDS: Baclofen 10 MG Tablet PO (20:08)
[2024-11-08] MEDS: Atorvastatin Calcium 40 MG Tablet PO (20:09)
[2024-11-09] MEDS: Acetaminophen 500 MG Tablet 1000 MG PO ×3 (05:11→23:17)
[2024-11-09] MEDS: Enoxaparin 40 MG/0.4 ML Syringe SC (05:11)
[2024-11-09 06:32] LABS: Bedside Glucose 99 mg/dL (74-106)
--- NOTE | 2024-11-09 08:44 | CASEMGMT ---
Social Work Care Coordination referral submitted via website referral form. Bette Sanchez FLOUR BROKER QUILL WORKER
--- NOTE | 2024-11-09 08:57 | NURSING ---
Beam Saw Operator Note; Activity Asset: Betsy Suh has been a resident on TCU in the past and remains independent in his choice of daily activities. Vikash's family will bring him items from home as well. He will read, watch tv, work on word puzzles and welcomes visits from the therapy dog. Staff will encourage social activities, remind him of weekly activities and respect his right to say no.
[2024-11-09 09:08] VITALS: BP 106/57; PULSE 65; RESP 16; TEMP 36.2; O2SAT 96
[2024-11-09] MEDS: Lisinopril 5 MG Tablet PO (09:10)
[2024-11-09] MEDS: Menthol/Lanolin/Calamine/Znox 113 GM Tube 1 APPLIC TOPICAL ×2 (09:10→20:51)
[2024-11-09] MEDS: metFORMIN HCl 500 MG Tablet PO ×2 (09:10→17:28)
[2024-11-09] MEDS: Amox/Clavulanate 500 MG Tablet PO ×2 (09:10→17:28)
[2024-11-09] MEDS: Gabapentin 100 MG Capsule PO ×3 (09:10→17:28)
[2024-11-09] MEDS: traMADol 50 MG Tablet PO ×2 (09:13→16:11)
[2024-11-09 14:51] LABS: Cholesterol 129 mg/dL (<=200); High Density Lipoprotein 36 mg/dL; Low Density Lipoprotein Calc. 61 mg/dL; Triglycerides 160 mg/dL; Very Low Density Lipoprotein 32 mg/dL (5-40); cholesterol:hdl ratio screen 3.55
[2024-11-09 16:45] LABS: Bedside Glucose 116 mg/dL (74-106)
[2024-11-09] MEDS: Tamsulosin HCl 0.4 MG Capsule PO (17:28)
[2024-11-09] MEDS: Atorvastatin Calcium 40 MG Tablet PO (20:51)
[2024-11-10] MEDS: Enoxaparin 40 MG/0.4 ML Syringe SC (05:18)
[2024-11-10 06:28] LABS: Bedside Glucose 120 mg/dL (74-106)
[2024-11-10] MEDS: metFORMIN HCl 500 MG Tablet PO ×2 (09:02→16:54)
[2024-11-10] MEDS: Amox/Clavulanate 500 MG Tablet PO (09:02)
[2024-11-10] MEDS: Lisinopril 5 MG Tablet PO (09:02)
[2024-11-10] MEDS: Menthol/Lanolin/Calamine/Znox 113 GM Tube 1 APPLIC TOPICAL ×2 (09:02→20:05)
[2024-11-10] MEDS: Gabapentin 100 MG Capsule PO ×3 (09:02→16:54)
[2024-11-10 09:58] VITALS: BP 112/76; PULSE 60; RESP 16; TEMP 36.7; O2SAT 96
[2024-11-10] MEDS: Tamsulosin HCl 0.4 MG Capsule PO (16:54)
[2024-11-10 17:15] LABS: Bedside Glucose 118 mg/dL (74-106)
[2024-11-10 20:00] VITALS: PULSE 62; RESP 18; O2SAT 96
[2024-11-10] MEDS: Atorvastatin Calcium 40 MG Tablet PO (20:05)
[2024-11-10] MEDS: Baclofen 10 MG Tablet PO (20:06)
[2024-11-10] MEDS: Acetaminophen 500 MG Tablet 1000 MG PO (20:06)
[2024-11-11] MEDS: Acetaminophen 500 MG Tablet 1000 MG PO ×2 (05:03→20:13)
[2024-11-11] MEDS: Enoxaparin 40 MG/0.4 ML Syringe SC (05:04)
[2024-11-11 06:32] LABS: Bedside Glucose 109 mg/dL (74-106)
[2024-11-11] MEDS: Gabapentin 100 MG Capsule PO ×3 (08:40→16:52)
[2024-11-11] MEDS: metFORMIN HCl 500 MG Tablet PO ×2 (08:40→16:52)
[2024-11-11] MEDS: Lisinopril 5 MG Tablet PO (08:40)
[2024-11-11] MEDS: Menthol/Lanolin/Calamine/Znox 113 GM Tube 1 APPLIC TOPICAL ×2 (08:41→20:13)
[2024-11-11 08:48] VITALS: BP 130/73; PULSE 68; RESP 16; TEMP 36.5; O2SAT 96
[2024-11-11] MEDS: Tamsulosin HCl 0.4 MG Capsule PO (16:52)
[2024-11-11 17:41] LABS: Bedside Glucose 142 mg/dL (74-106)
[2024-11-11 20:00] VITALS: RESP 16; O2SAT 95
[2024-11-11] MEDS: Baclofen 10 MG Tablet PO (20:13)
[2024-11-11] MEDS: Atorvastatin Calcium 40 MG Tablet PO (20:14)
[2024-11-11] MEDS: Senna/Docusate Sodium 1 Tablet PO (20:14)
[2024-11-12 06:20] LABS: Bedside Glucose 106 mg/dL (74-106)
[2024-11-12 08:12] VITALS: BP 130/66; PULSE 88; RESP 16; TEMP 36.6; O2SAT 94
[2024-11-12] MEDS: metFORMIN HCl 500 MG Tablet PO ×2 (08:14→17:13)
[2024-11-12] MEDS: Enoxaparin 40 MG/0.4 ML Syringe SC (08:14)
[2024-11-12] MEDS: Gabapentin 100 MG Capsule PO ×3 (08:14→17:12)
[2024-11-12] MEDS: Menthol/Lanolin/Calamine/Znox 113 GM Tube 1 APPLIC TOPICAL ×2 (08:15→20:15)
[2024-11-12] MEDS: Senna/Docusate Sodium 1 Tablet PO ×2 (08:16→20:14)
[2024-11-12] MEDS: Lisinopril 5 MG Tablet PO (08:16)
[2024-11-12] MEDS: Baclofen 10 MG Tablet PO ×2 (08:21→20:16)
[2024-11-12] MEDS: Acetaminophen 500 MG Tablet 1000 MG PO (08:21)
[2024-11-12 16:21] LABS: Bedside Glucose 142 mg/dL (74-106)
[2024-11-12] MEDS: Tamsulosin HCl 0.4 MG Capsule PO (17:12)
[2024-11-12] MEDS: COVID VAC 24-25 (12UP)(MODERNA)/PF 50 MCG/0.5 ML SYRINGE IM (18:23)
[2024-11-12] MEDS: Atorvastatin Calcium 40 MG Tablet PO (20:15)
[2024-11-13 06:36] LABS: Bedside Glucose 103 mg/dL (74-106)
[2024-11-13 08:48] VITALS: BP 139/79; PULSE 69; RESP 18; TEMP 37.3
[2024-11-13] MEDS: Gabapentin 100 MG Capsule PO ×3 (08:49→17:16)
[2024-11-13] MEDS: Senna/Docusate Sodium 1 Tablet PO ×2 (08:49→20:46)
[2024-11-13] MEDS: Enoxaparin 40 MG/0.4 ML Syringe SC (08:50)
[2024-11-13] MEDS: Lisinopril 5 MG Tablet PO (08:50)
[2024-11-13] MEDS: metFORMIN HCl 500 MG Tablet PO ×2 (08:50→17:17)
[2024-11-13] MEDS: Menthol/Lanolin/Calamine/Znox 113 GM Tube 1 APPLIC TOPICAL ×2 (08:51→20:46)
[2024-11-13 14:02] VITALS: BMI 31.6
[2024-11-13] MEDS: traMADol 50 MG Tablet PO (14:53)
[2024-11-13 16:55] LABS: Bedside Glucose 105 mg/dL (74-106)
[2024-11-13] MEDS: Tamsulosin HCl 0.4 MG Capsule PO (17:17)
[2024-11-13] MEDS: Atorvastatin Calcium 40 MG Tablet PO (20:46)
[2024-11-14 06:31] LABS: Bedside Glucose 90 mg/dL (74-106)
[2024-11-14 07:53] VITALS: BP 120/64; PULSE 79; RESP 16; TEMP 37.2; O2SAT 94
[2024-11-14] MEDS: Enoxaparin 40 MG/0.4 ML Syringe SC (07:54)
[2024-11-14] MEDS: metFORMIN HCl 500 MG Tablet PO ×2 (07:54→17:17)
[2024-11-14] MEDS: Senna/Docusate Sodium 1 Tablet PO ×2 (07:55→20:26)
[2024-11-14] MEDS: Gabapentin 100 MG Capsule PO ×3 (07:55→17:17)
[2024-11-14] MEDS: Lisinopril 5 MG Tablet PO (07:55)
[2024-11-14] MEDS: Menthol/Lanolin/Calamine/Znox 113 GM Tube 1 APPLIC TOPICAL ×2 (07:57→20:28)
--- NOTE | 2024-11-14 09:42 | CASEMGMT ---
Social Work SW completed BIMS () and PHQ-2 () for MDS assessment. Bette Sanchez CAN INSPECTOR JAI ALAI PLAYER
--- NOTE | 2024-11-14 09:44 | CASEMGMT ---
Social Work IDT met with patient at bedside and son via conference call for care plan meeting. Discussed patient's progress in PT/OT/SN. Educated to Medicare benefit. Provided pt/family with written communication of insurance process and copay coverage during stay. Therapy noted pt's levels vary d/t hip/knee pain. Expressed concerns with pt returning home alone and recommending additional assistance. Although, pt denies needing additional assistance and that he cannot afford paying for a life alert. Son intervened and stated he and his sister agrees that pt needs additional support and they plan on taking care of the life alert. SW educated to resources for life alert, [place], nonskilled OVEN PRESS TENDER, driving rehab, and home delivered meals. SW left at bedside for dtr to retrieve. SW offered to email resources to son as well. Son agreed and provided email address for himself and sister. SW informed son that this worker completed a Care Coordination referral to assist with support in the home for pt. Son confirmed the sister received that phone call and has an assessment scheduled. SW provided this worker's contact information for further questions. SW will continue to follow and assess over the next week pt's DC readiness. This worker will contact dtr when a DC date is ready to be set. Son appreciative. Bette Sanchez DIE MOUNTER WIRE FRAME LAMPSHADE MAKER
[2024-11-14 16:50] LABS: Bedside Glucose 97 mg/dL (74-106)
[2024-11-14] MEDS: Tamsulosin HCl 0.4 MG Capsule PO (17:17)
[2024-11-14] MEDS: Acetaminophen 500 MG Tablet 1000 MG PO (20:26)
[2024-11-14] MEDS: Atorvastatin Calcium 40 MG Tablet PO (20:26)
[2024-11-15 04:52] VITALS: RESP 17
[2024-11-15 06:12] LABS: Bedside Glucose 106 mg/dL (74-106)
[2024-11-15 07:09] LABS: Absolute Lymphocyte Count 1.97 X10^3/uL (0.83-4.51); Absolute Neutrophil Count 3.2 X10^3/uL (2.0-7.7); Basophil# 0.03 X10^3/uL; Basophil% 0.4 % (0-1); Eosinophil# 0.06 X10^3/uL; Eosinophils% 0.9 % (0-5); Hematocrit 31.3 % (40-54); Hemoglobin 10.1 g/dL (13.0-16.5); Lymphocyte # 1.97 X10^3/ul (0.83-4.51); Lymphocyte % 28.2 % (19-41); Mean Corp Hgb Conc 32.3 g/dL (32-36); Mean Corpuscular Hgb 32.4 pg (27.0-32.0); Mean Corpuscular Volume 100.3 fL (80-94); Mean Platelet Vol. 9.8 fl (6.2-12.0); Monocyte# 1.55 X10^3/uL; Monocyte% 22.2 % (0-10); NRBC Flagged by Analyzer 0 % (0-5); Neutrophil # 3.19 X10^3/uL (2.7-7.7); Neutrophil % 45.7 % (47-70); POSITIVE DIFFERENTIAL YES; Platelet Count 441 K/mm3 (150-450); RBC Distribution Width CV 12.8 % (11.6-14.6); RBC Distribution Width SD 47.3 fl (35.1-43.9); Red Blood Count 3.12 M/mm3 (4.6-6.2)
[2024-11-15 07:20] LABS: Anion Gap 14 (5-15); BUN 23 mg/dL (4-19); BUN/Creat Ratio 17.8 RATIO (10-20); Calcium,Total 8.9 mg/dL (7.6-11.0); Carbon Dioxide 22.6 mmol/L (21.0-32.0); Chloride 102 mmol/L (98-108); Creatinine, Serum 1.29 mg/dL (0.70-1.20); EST Glomerular Filtration Rate 57 (>60); Estimated Creatinine Clearance 55.95 ml/min (50-250); Glucose 114 mg/dL (70-99); Potassium 4.3 mmol/L (3.3-5.1); Sodium Level 139 mmol/L (133-145)
[2024-11-15 07:33] LABS: Differential Indicated SCAN CRITERIA MET
[2024-11-15 07:45] LABS: Differential Comment SCANNED
[2024-11-15 08:47] VITALS: BP 128/84; PULSE 72; RESP 18; TEMP 36.4; O2SAT 94
[2024-11-15] MEDS: metFORMIN HCl 500 MG Tablet PO ×2 (08:48→16:46)
[2024-11-15] MEDS: Gabapentin 100 MG Capsule PO ×3 (08:48→16:46)
[2024-11-15] MEDS: Enoxaparin 40 MG/0.4 ML Syringe SC (08:48)
[2024-11-15] MEDS: Lisinopril 5 MG Tablet PO (08:49)
[2024-11-15] MEDS: Senna/Docusate Sodium 1 Tablet PO ×2 (08:49→21:02)
[2024-11-15] MEDS: Menthol/Lanolin/Calamine/Znox 113 GM Tube 1 APPLIC TOPICAL ×2 (08:49→21:02)
[2024-11-15] MEDS: Tuberculin,Purif.prot.deriv. 50 TU/ML Vial 0.1 ML ID (08:50)
[2024-11-15] MEDS: Tamsulosin HCl 0.4 MG Capsule PO (16:46)
[2024-11-15 16:58] LABS: Bedside Glucose 111 mg/dL (74-106)
[2024-11-15] MEDS: Acetaminophen 500 MG Tablet 1000 MG PO (21:01)
[2024-11-15] MEDS: Atorvastatin Calcium 40 MG Tablet PO (21:02)
[2024-11-16 06:20] LABS: Bedside Glucose 128 mg/dL (74-106)
[2024-11-16 07:39] VITALS: BP 121/64; PULSE 58; RESP 18; TEMP 36.7; O2SAT 97
[2024-11-16] MEDS: Enoxaparin 40 MG/0.4 ML Syringe SC (07:40)
[2024-11-16] MEDS: Lisinopril 5 MG Tablet PO (07:41)
[2024-11-16] MEDS: Gabapentin 100 MG Capsule PO ×3 (07:41→16:29)
[2024-11-16] MEDS: Senna/Docusate Sodium 1 Tablet PO ×2 (07:41→21:08)
[2024-11-16] MEDS: metFORMIN HCl 500 MG Tablet PO ×2 (07:41→16:29)
[2024-11-16] MEDS: Menthol/Lanolin/Calamine/Znox 113 GM Tube 1 APPLIC TOPICAL ×2 (07:42→21:12)
[2024-11-16] MEDS: Tamsulosin HCl 0.4 MG Capsule PO (16:29)
[2024-11-16] MEDS: Acetaminophen 500 MG Tablet 1000 MG PO (16:32)
[2024-11-16 16:49] LABS: Bedside Glucose 101 mg/dL (74-106)
[2024-11-16 17:19] VITALS: PULSE 67; RESP 16; O2SAT 95
[2024-11-16] MEDS: Atorvastatin Calcium 40 MG Tablet PO (21:08)
[2024-11-16] MEDS: traMADol 50 MG Tablet PO (21:08)
[2024-11-17 06:28] LABS: Bedside Glucose 99 mg/dL (74-106)
[2024-11-17 08:47] VITALS: BP 117/71; PULSE 90; RESP 17; TEMP 36.8; O2SAT 96
[2024-11-17] MEDS: metFORMIN HCl 500 MG Tablet PO ×2 (08:49→17:33)
[2024-11-17] MEDS: Enoxaparin 40 MG/0.4 ML Syringe SC (08:49)
[2024-11-17] MEDS: Gabapentin 100 MG Capsule PO ×3 (08:49→17:33)
[2024-11-17] MEDS: Menthol/Lanolin/Calamine/Znox 113 GM Tube 1 APPLIC TOPICAL ×2 (08:49→22:10)
[2024-11-17] MEDS: Lisinopril 5 MG Tablet PO (08:50)
[2024-11-17] MEDS: Senna/Docusate Sodium 1 Tablet PO ×2 (08:50→22:11)
[2024-11-17] MEDS: traMADol 50 MG Tablet PO ×2 (08:54→17:37)
[2024-11-17 16:52] LABS: Bedside Glucose 108 mg/dL (74-106)
[2024-11-17] MEDS: Tamsulosin HCl 0.4 MG Capsule PO (17:33)
[2024-11-17 20:00] VITALS: PULSE 66; O2SAT 92
[2024-11-17] MEDS: Atorvastatin Calcium 40 MG Tablet PO (22:10)
[2024-11-17] MEDS: Acetaminophen 500 MG Tablet 1000 MG PO (22:14)
[2024-11-18 06:32] LABS: Bedside Glucose 101 mg/dL (74-106)
[2024-11-18 06:37] VITALS: PULSE 68; O2SAT 92
[2024-11-18] MEDS: metFORMIN HCl 500 MG Tablet PO ×2 (07:52→17:38)
[2024-11-18] MEDS: Gabapentin 100 MG Capsule PO ×3 (07:52→17:38)
[2024-11-18] MEDS: Lisinopril 5 MG Tablet PO (07:53)
[2024-11-18] MEDS: Senna/Docusate Sodium 1 Tablet PO (07:53)
[2024-11-18] MEDS: Enoxaparin 40 MG/0.4 ML Syringe SC (07:53)
[2024-11-18] MEDS: Menthol/Lanolin/Calamine/Znox 113 GM Tube 1 APPLIC TOPICAL ×2 (07:56→20:29)
[2024-11-18 14:34] VITALS: BP 125/69; PULSE 79; RESP 20; TEMP 37.2; O2SAT 93
[2024-11-18 16:57] LABS: Bedside Glucose 121 mg/dL (74-106)
[2024-11-18] MEDS: Tamsulosin HCl 0.4 MG Capsule PO (17:39)
[2024-11-18] MEDS: Acetaminophen 500 MG Tablet 1000 MG PO (17:44)
[2024-11-18 19:42] VITALS: TEMP 37.4
[2024-11-18] MEDS: Atorvastatin Calcium 40 MG Tablet PO (20:30)
[2024-11-18] MEDS: traMADol 50 MG Tablet PO (20:33)
[2024-11-18 20:37] VITALS: TEMP 37.2
[2024-11-18 22:26] VITALS: TEMP 36.8
[2024-11-19] MEDS: Acetaminophen 500 MG Tablet 1000 MG PO ×2 (00:23→18:11)
[2024-11-19 06:15] LABS: Bedside Glucose 92 mg/dL (74-106)
[2024-11-19] MEDS: Gabapentin 100 MG Capsule PO ×3 (07:33→18:06)
[2024-11-19] MEDS: Enoxaparin 40 MG/0.4 ML Syringe SC (07:33)
[2024-11-19] MEDS: metFORMIN HCl 500 MG Tablet PO ×2 (07:33→18:06)
[2024-11-19] MEDS: Lisinopril 5 MG Tablet PO (07:34)
--- NOTE | 2024-11-19 07:44 | MDS.RN ---
Information for the MDS was obtained from review of the clinical record, interview of resident, staff, and direct observation of resident?s care.
[2024-11-19] MEDS: Menthol/Lanolin/Calamine/Znox 113 GM Tube 1 APPLIC TOPICAL ×2 (07:47→19:57)
[2024-11-19] MEDS: traMADol 50 MG Tablet PO (13:02)
[2024-11-19 16:48] LABS: Bedside Glucose 108 mg/dL (74-106)
[2024-11-19 17:00] VITALS: BP 130/74; PULSE 80; RESP 20; TEMP 38.7; O2SAT 94
[2024-11-19 17:59] LABS: Absolute Lymphocyte Count 1.56 X10^3/uL (0.83-4.51); Absolute Neutrophil Count 5.7 X10^3/uL (2.0-7.7); Basophil# 0.02 X10^3/uL; Basophil% 0.2 % (0-1); Eosinophil# 0.04 X10^3/uL; Eosinophils% 0.5 % (0-5); Hematocrit 30.4 % (40-54); Lymphocyte # 1.56 X10^3/ul (0.83-4.51); Lymphocyte % 18.5 % (19-41); Mean Corp Hgb Conc 32.9 g/dL (32-36); Mean Corpuscular Hgb 32.1 pg (27.0-32.0); Mean Corpuscular Volume 97.4 fL (80-94); Mean Platelet Vol. 9.2 fl (6.2-12.0); Monocyte% 11.8 % (0-10); NRBC Flagged by Analyzer 0 % (0-5); Neutrophil # 5.73 X10^3/uL (2.7-7.7); Neutrophil % 67.9 % (47-70); Platelet Count 385 K/mm3 (150-450); RBC Distribution Width CV 12.2 % (11.6-14.6); RBC Distribution Width SD 43.7 fl (35.1-43.9); Red Blood Count 3.12 M/mm3 (4.6-6.2); White Blood Count 8.4 K/mm3 (4.4-11.0)
--- NOTE | 2024-11-19 18:01 | NURSING ---
Fever of 101.6 this evening. Patient reports feeling morgan, but cannot pinpoint symptoms other than a slightly upset stomach and has been having a few episodes of loose BM. Dr. Mcwilliams made aware and orders for respiratory panel, covid swab, c-diff and contact precautions. Covid test collected and sent to lab.
[2024-11-19] MEDS: Tamsulosin HCl 0.4 MG Capsule PO (18:06)
[2024-11-19 18:39] LABS: Anion Gap 12 (5-15); BUN 20 mg/dL (4-19); BUN/Creat Ratio 17.7 RATIO (10-20); Calcium,Total 8.4 mg/dL (7.6-11.0); Carbon Dioxide 20.5 mmol/L (21.0-32.0); Chloride 99 mmol/L (98-108); Creatinine, Serum 1.13 mg/dL (0.70-1.20); EST Glomerular Filtration Rate 67 (>60); Estimated Creatinine Clearance 63.87 ml/min (50-250); Glucose 110 mg/dL (70-99); Potassium 4.7 mmol/L (3.3-5.1); Sodium Level 132 mmol/L (133-145)
[2024-11-19] MEDS: Atorvastatin Calcium 40 MG Tablet PO (19:55)
[2024-11-19 22:40] VITALS: TEMP 37.4
[2024-11-20 06:34] LABS: Bedside Glucose 117 mg/dL (74-106)
--- NOTE | 2024-11-20 08:20 | RAD_ITS ---
PROCEDURE: CHEST PA AND LATERAL 11/20/2024 REASON FOR EXAM: Low-grade fever. TECHNIQUE: Frontal and lateral views of the chest. COMPARISON: Comparison is made with prior study dated August 10, 2022. FINDINGS: Hardware: EKG electrodes are seen. Heart: Borderline cardiomegaly. Mediastinum: The mediastinal contour is stable. Lungs: Stable elevation of the right hemidiaphragm with increased markings at the right lung base suggestive of right basilar atelectasis. Bones: Degenerative changes are identified within the thoracic spine. Atherosclerotic calcification of the aortic arch. RAD/Chest PA and Lateral IMPRESSION: Elevation of the right hemidiaphragm with increased markings at the right lung base suggestive of right basilar atelectasis. Reading Location: [place] [id number]
[2024-11-20 08:56] LABS: Mucous, Urine 0 SEEN /hpf (<or=2+); Squamous Epithelial Cells - UA 0 SEEN /hpf (0-5)
[2024-11-20 09:01] LABS: Color, Urine Yellow (Yellow); Glucose, Dipstick Normal (Normal); Ketone-Dipstick Negative (Negative); Leukocyte Esterase-Dipstick 500 /ul (Negative); Nitrite-Dipstick Negative (Negative); Occult Blood-Urine 250 /ul (Negative); Protein-Dipstick 30 mg/dl (Negative); Urine Bilirubin Dipstick Negative (Negative); Urine Clarity Clear (Clear); Urine Urobilinogen Normal (Normal)
[2024-11-20 09:32] LABS: Bacteria 2+ /hpf (None Seen)
[2024-11-20 09:33] LABS: Red Blood Cells-Urine 0-5 SEEN /hpf (0-5); White Blood Cells 10-25 SEEN /hpf (0-5)
[2024-11-20 10:00] VITALS: RESP 14
[2024-11-20 10:19] VITALS: BP 129/76; PULSE 78; RESP 14; TEMP 37.3; O2SAT 94
[2024-11-20] MEDS: metFORMIN HCl 500 MG Tablet PO ×2 (10:24→17:17)
[2024-11-20] MEDS: Enoxaparin 40 MG/0.4 ML Syringe SC (10:24)
[2024-11-20] MEDS: Gabapentin 100 MG Capsule PO ×3 (10:24→17:16)
[2024-11-20] MEDS: Menthol/Lanolin/Calamine/Znox 113 GM Tube 1 APPLIC TOPICAL ×2 (10:25→20:12)
[2024-11-20] MEDS: Lisinopril 5 MG Tablet PO (10:26)
[2024-11-20 10:41] VITALS: BMI 31.2
--- NOTE | 2024-11-20 11:41 | NURSING ---
Updated Dr. Mcwilliams of results, orders placed for Cipro.
[2024-11-20] MEDS: Ciprofloxacin 500 MG Tablet PO ×2 (11:51→20:13)
--- NOTE | 2024-11-20 12:53 | NURSING ---
Resident complaining of pain to his buttocks, asking that dressing be applied, said it hurts without it. Area reddened and open to bilateral buttocks from moisture/shear. Cleansed with soap and water, applied padded foam dressing. Educated him that he needs to turn side to side to relieve pressure from area. He agreed, allowed nurse to turn him to left side. He reported pain was much better. Cushion in chair for when he's out of bed.
[2024-11-20 16:40] LABS: Bedside Glucose 160 mg/dL (74-106)
[2024-11-20] MEDS: Acetaminophen 500 MG Tablet 1000 MG PO (17:16)
[2024-11-20] MEDS: Tamsulosin HCl 0.4 MG Capsule PO (17:17)
--- NOTE | 2024-11-20 18:25 | CASEMGMT ---
Addendum entered by Bette Sanchez 11/21/24 08:57: SW spoke with STRATEGY SPECIALIST and agreed to 1100 on 11/23 for training. SW updated dtr. Original Note: Social Work SW emailed pt's dtr and son to provide update on pt's progress in therapy, discuss recommendations for DC and further DC planning. SW educated pt walking about 150 feet with the walker, completing 3 steps with 2 handrails, but needing mind-modA for toileting and lower body dressing/bathing. The therapist will continue working with the pt over the next week but are not anticipating a significant change in that level of assistance.?SW reiterated IDTs initial concerns/recommendations from last week's care plan meeting. IDT recommending pt having extra assistance in the home for those daily living tasks. Explained there are no specific recommendations on amount of assistance since toileting cannot be scheduled. Educated to benefits of AL and IDT agree pt would thrive in that environment with the structure and routine, socialization, getting assistance with his ADLs and IADLs but still having the privacy the pt values. Educated to AL is an [id number] cost but can receive skilled HHC. Explained it pt continues electing home, this worker can coordinate skilled HHC as well. Referred back to previously provided resources for homegoing. RYANNE noted the Care Coordination program is a great resource, if pt qualifies. Inquired on that result as the dtr scheduled a time to speak with the intake assessor. SW offered dtr to attend a therapy session and to coordinate outside of dtr's work schedule. SW offered ongoing assistance with DC planning. - Dtr replied stating pt is not going to go for AL. She speaks with the program intake assessor on 11/22 and will notify this worker of the outcome. Dtr agreed to therapy training and is off work for the holiday on 11/23. SW to speak with STRATEGY SPECIALIST on time. SW will continue to follow. Bette Sanchez DYE WORKER LECTURER IN COMPUTER SCIENCE
[2024-11-20] MEDS: Atorvastatin Calcium 40 MG Tablet PO (20:13)
--- NOTE | 2024-11-20 20:20 | NURSING ---
A&OX3, patient requesting to be up ad montserrat, states I'm going to start taking myself to the bathroom, I don't need help, I can do it. Patient gait is observed slow and unsteady at times, therapy recommendation currently is Ax1 with WW. Patient educated not to self transfer to promote safety and reduce risk of fall and injury and educated counter person light to request staff assist at any time. Patient educated that therapy is to decide if patient is appropriate for up ad montserrat and therapy will be notified of patient request. Patient verbalizes understanding and agrees to utilize call light for staff assist with transfers. Call light within reach, denies need for toileting at this time, waiting on my daughter to call me tonight then I will get ready for bed. Personal items within reach. Denies requests. Call light in reach. Note left for therapy requesting eval for up ad montserrat per pt. request
[2024-11-21 06:19] LABS: Bedside Glucose 134 mg/dL (74-106)
[2024-11-21 07:45] VITALS: BP 144/73; PULSE 76; RESP 17; TEMP 37.4; O2SAT 95
[2024-11-21] MEDS: Gabapentin 100 MG Capsule PO ×3 (07:49→17:22)
[2024-11-21] MEDS: Ciprofloxacin 500 MG Tablet PO ×2 (07:49→19:36)
[2024-11-21] MEDS: metFORMIN HCl 500 MG Tablet PO ×2 (07:50→17:22)
[2024-11-21] MEDS: Senna/Docusate Sodium 1 Tablet PO ×2 (07:50→19:35)
[2024-11-21] MEDS: Lisinopril 5 MG Tablet PO (07:50)
[2024-11-21] MEDS: Menthol/Lanolin/Calamine/Znox 113 GM Tube 1 APPLIC TOPICAL ×2 (07:51→19:36)
[2024-11-21] MEDS: Enoxaparin 40 MG/0.4 ML Syringe SC (07:51)
[2024-11-21] MEDS: Tamsulosin HCl 0.4 MG Capsule PO (17:22)
[2024-11-21 17:23] LABS: Bedside Glucose 131 mg/dL (74-106)
[2024-11-21] MEDS: Atorvastatin Calcium 40 MG Tablet PO (19:35)
[2024-11-22 06:13] LABS: Bedside Glucose 113 mg/dL (74-106)
[2024-11-22 06:57] LABS: Anion Gap 11 (5-15); BUN 16 mg/dL (4-19); BUN/Creat Ratio 13.4 RATIO (10-20); Calcium,Total 8.7 mg/dL (7.6-11.0); Carbon Dioxide 24.4 mmol/L (21.0-32.0); Chloride 103 mmol/L (98-108); Creatinine, Serum 1.22 mg/dL (0.70-1.20); EST Glomerular Filtration Rate 61 (>60); Estimated Creatinine Clearance 58.89 ml/min (50-250); Glucose 113 mg/dL (70-99); Potassium 4.2 mmol/L (3.3-5.1); Sodium Level 139 mmol/L (133-145)
[2024-11-22] MEDS: Gabapentin 100 MG Capsule PO ×3 (08:16→18:05)
[2024-11-22] MEDS: metFORMIN HCl 500 MG Tablet PO ×2 (08:16→18:05)
[2024-11-22] MEDS: Enoxaparin 40 MG/0.4 ML Syringe SC (08:16)
[2024-11-22] MEDS: Senna/Docusate Sodium 1 Tablet PO ×2 (08:16→19:51)
[2024-11-22] MEDS: Ciprofloxacin 500 MG Tablet PO (08:16)
[2024-11-22] MEDS: Lisinopril 5 MG Tablet PO (08:17)
[2024-11-22] MEDS: Menthol/Lanolin/Calamine/Znox 113 GM Tube 1 APPLIC TOPICAL ×2 (08:17→19:52)
[2024-11-22 08:20] LABS: Absolute Lymphocyte Count 1.89 X10^3/uL (0.83-4.51); Absolute Neutrophil Count 3.3 X10^3/uL (2.0-7.7); Basophil# 0.03 X10^3/uL; Basophil% 0.5 % (0-1); Eosinophil# 0.03 X10^3/uL; Eosinophils% 0.5 % (0-5); Hematocrit 30.1 % (40-54); Hemoglobin 9.7 g/dL (13.0-16.5); Lymphocyte # 1.89 X10^3/ul (0.83-4.51); Lymphocyte % 29.1 % (19-41); Mean Corp Hgb Conc 32.2 g/dL (32-36); Mean Corpuscular Hgb 31.9 pg (27.0-32.0); Mean Platelet Vol. 9.4 fl (6.2-12.0); Monocyte# 1.23 X10^3/uL; Monocyte% 18.9 % (0-10); NRBC Flagged by Analyzer 0 % (0-5); Neutrophil # 3.26 X10^3/uL (2.7-7.7); Neutrophil % 50.1 % (47-70); Platelet Count 353 K/mm3 (150-450); RBC Distribution Width CV 12.1 % (11.6-14.6); Red Blood Count 3.04 M/mm3 (4.6-6.2); White Blood Count 6.5 K/mm3 (4.4-11.0)
[2024-11-22 08:24] VITALS: BP 134/74; PULSE 81
[2024-11-22 14:03] VITALS: BP 139/75; PULSE 75; RESP 16; TEMP 36.8; O2SAT 96
--- NOTE | 2024-11-22 16:19 | CASEMGMT ---
Social Work SW received communication from [facility] Care Coordination family advocate that dtr decline services d/t estate recovery and was provided private duty home care providers. Bette Sanchez CRIME INVESTIGATOR SPECIAL AGENT LUMBER PILER
[2024-11-22 16:35] LABS: Bedside Glucose 131 mg/dL (74-106)
[2024-11-22] MEDS: Tamsulosin HCl 0.4 MG Capsule PO (18:05)
[2024-11-22] MEDS: Doxycycline 100 MG CAPSULE PO (19:51)
[2024-11-22] MEDS: Atorvastatin Calcium 40 MG Tablet PO (19:51)
[2024-11-23 06:32] LABS: Bedside Glucose 120 mg/dL (74-106)
[2024-11-23 09:00] VITALS: BP 142/75; PULSE 94; RESP 17; TEMP 36.7; O2SAT 95
[2024-11-23] MEDS: Enoxaparin 40 MG/0.4 ML Syringe SC (09:02)
[2024-11-23] MEDS: metFORMIN HCl 500 MG Tablet PO ×2 (09:02→17:29)
[2024-11-23] MEDS: Doxycycline 100 MG CAPSULE PO ×2 (09:03→21:53)
[2024-11-23] MEDS: Menthol/Lanolin/Calamine/Znox 113 GM Tube 1 APPLIC TOPICAL ×2 (09:03→21:55)
[2024-11-23] MEDS: Senna/Docusate Sodium 1 Tablet PO ×2 (09:03→21:53)
[2024-11-23] MEDS: Lisinopril 5 MG Tablet PO (09:03)
[2024-11-23] MEDS: Gabapentin 100 MG Capsule PO ×3 (09:06→17:29)
[2024-11-23] MEDS: Tamsulosin HCl 0.4 MG Capsule PO (17:29)
[2024-11-23 17:37] LABS: Bedside Glucose 122 mg/dL (74-106)
[2024-11-23] MEDS: Atorvastatin Calcium 40 MG Tablet PO (21:54)
[2024-11-24 06:15] LABS: Bedside Glucose 144 mg/dL (74-106)
[2024-11-24 08:10] VITALS: BP 114/67; PULSE 68; RESP 17; TEMP 36.7; O2SAT 95
[2024-11-24] MEDS: Enoxaparin 40 MG/0.4 ML Syringe SC (08:12)
[2024-11-24] MEDS: Menthol/Lanolin/Calamine/Znox 113 GM Tube 1 APPLIC TOPICAL ×2 (08:12→20:16)
[2024-11-24] MEDS: Gabapentin 100 MG Capsule PO ×3 (08:12→17:57)
[2024-11-24] MEDS: metFORMIN HCl 500 MG Tablet PO ×2 (08:12→17:57)
[2024-11-24] MEDS: Doxycycline 100 MG CAPSULE PO ×2 (08:13→20:16)
[2024-11-24] MEDS: Lisinopril 5 MG Tablet PO (08:13)
[2024-11-24] MEDS: Senna/Docusate Sodium 1 Tablet PO ×2 (08:13→20:17)
[2024-11-24 16:48] LABS: Bedside Glucose 96 mg/dL (74-106)
[2024-11-24] MEDS: Tamsulosin HCl 0.4 MG Capsule PO (17:57)
[2024-11-24] MEDS: Atorvastatin Calcium 40 MG Tablet PO (20:17)
[2024-11-25 06:34] LABS: Bedside Glucose 99 mg/dL (74-106)
[2024-11-25 08:47] VITALS: BP 128/80; PULSE 68; RESP 18; TEMP 36.6
[2024-11-25] MEDS: Menthol/Lanolin/Calamine/Znox 113 GM Tube 1 APPLIC TOPICAL ×2 (08:50→20:13)
[2024-11-25] MEDS: Enoxaparin 40 MG/0.4 ML Syringe SC (08:50)
[2024-11-25] MEDS: metFORMIN HCl 500 MG Tablet PO ×2 (08:50→16:39)
[2024-11-25] MEDS: Gabapentin 100 MG Capsule PO ×3 (08:50→16:39)
[2024-11-25] MEDS: Senna/Docusate Sodium 1 Tablet PO ×2 (08:51→20:07)
[2024-11-25] MEDS: Doxycycline 100 MG CAPSULE PO ×2 (08:51→20:07)
[2024-11-25] MEDS: Lisinopril 5 MG Tablet PO (08:51)
[2024-11-25] MEDS: Tamsulosin HCl 0.4 MG Capsule PO (16:39)
[2024-11-25 17:09] LABS: Bedside Glucose 115 mg/dL (74-106)
[2024-11-25] MEDS: Atorvastatin Calcium 40 MG Tablet PO (20:07)
[2024-11-26 06:28] LABS: Bedside Glucose 91 mg/dL (74-106)
[2024-11-26 08:08] VITALS: BP 121/70; PULSE 77; RESP 16; TEMP 36.4; O2SAT 94
[2024-11-26] MEDS: metFORMIN HCl 500 MG Tablet PO ×2 (08:11→17:03)
[2024-11-26] MEDS: Gabapentin 100 MG Capsule PO ×3 (08:11→17:02)
[2024-11-26] MEDS: Enoxaparin 40 MG/0.4 ML Syringe SC (08:11)
[2024-11-26] MEDS: Doxycycline 100 MG CAPSULE PO ×2 (08:12→20:38)
[2024-11-26] MEDS: Senna/Docusate Sodium 1 Tablet PO ×2 (08:12→20:38)
[2024-11-26] MEDS: Lisinopril 5 MG Tablet PO (08:12)
[2024-11-26] MEDS: Menthol/Lanolin/Calamine/Znox 113 GM Tube 1 APPLIC TOPICAL ×2 (08:12→20:40)
--- NOTE | 2024-11-26 16:06 | CASEMGMT ---
Social Work SW sent secure email to dtr noting therapy training went well last week and IDT is ready to set a DC date. Inquired about assistance in the home for pt at DC. Offered to set date with dtr's availability. Will await response. Bette Sanchez EVENT DECORATOR PERSONAL DRIVER
[2024-11-26 16:34] LABS: Bedside Glucose 138 mg/dL (74-106)
[2024-11-26] MEDS: Tamsulosin HCl 0.4 MG Capsule PO (17:02)
[2024-11-26] MEDS: Atorvastatin Calcium 40 MG Tablet PO (20:38)
[2024-11-27 02:45] VITALS: RESP 17
[2024-11-27 06:27] LABS: Bedside Glucose 104 mg/dL (74-106)
[2024-11-27 08:02] VITALS: BP 141/72; PULSE 75; RESP 16; TEMP 36.4; O2SAT 96
[2024-11-27] MEDS: Menthol/Lanolin/Calamine/Znox 113 GM Tube 1 APPLIC TOPICAL ×2 (08:02→20:38)
[2024-11-27] MEDS: Enoxaparin 40 MG/0.4 ML Syringe SC (08:02)
[2024-11-27] MEDS: Lisinopril 5 MG Tablet PO (08:02)
[2024-11-27] MEDS: Gabapentin 100 MG Capsule PO ×3 (08:02→17:07)
[2024-11-27] MEDS: Senna/Docusate Sodium 1 Tablet PO ×2 (08:02→20:38)
[2024-11-27] MEDS: metFORMIN HCl 500 MG Tablet PO ×2 (08:02→17:07)
[2024-11-27] MEDS: Doxycycline 100 MG CAPSULE PO ×2 (08:02→20:37)
[2024-11-27] MEDS: traMADol 50 MG Tablet PO (08:06)
--- NOTE | 2024-11-27 09:30 | CASEMGMT ---
Social Work 11/26/24 approximately 1800: SW received return email from dtr and continued with communication for DC. Dtr's only availability to transport pt home is 11/29 at 1800. SW accepted and set DC. Offered to send list of skilled HHC agencies for dtr to select preference. Dtr denied and stated pt used [facility] prior and can use again. SW to place referral. SW confirmed coordination for FWW. Dtr agreed. 11/27/24 - RYANNE phoned referral to [facility] for PT/OT/SN/MAYNARD/SW. Referred sent to [facility] via [email or web address] for FWW delivered to the room. IDT updated on DC date. Plan: DC home alone 11/29, [facility] PT/OT/SN/MAYNARD/SW, FWW Bette LYNCH
--- NOTE | 2024-11-27 10:27 | CASEMGMT ---
Social Work SW spoke with pt about DC plans. Pt agreeable and appreciative. SW completed BIMS (0/15) and PHQ-2 (00) for MDS assessment. Bette Sanchez RESEARCH HYDRAULIC ENGINEER BATCH WEIGHER
[2024-11-27 10:51] VITALS: BMI 30.9
[2024-11-27] MEDS: Tamsulosin HCl 0.4 MG Capsule PO (17:07)
[2024-11-27 17:30] LABS: Bedside Glucose 95 mg/dL (74-106)
--- NOTE | 2024-11-27 20:34 | DS.PCM_ITS ---
Providers Date of Admission: 11/07/24 Primary Care Physician: Dr. Mitch Mcwilliams MD Reason For Visit: RHABDO/UTI/LEFT RENAL STON Diagnosis Discharge Diagnosis (1) Debility: Status: Acute Code(s): R53.81 - Other malaise (2) Rhabdomyolysis: Status: Acute Code(s): M62.82 - Rhabdomyolysis Qualifiers: Rhabdomyolysis type: traumatic Encounter type: initial encounter Q ualified Code(s): T79.6XXA - Traumatic ischemia of muscle, initial encounter (3) Calculus of left ureter: Status: Acute Code(s): N20.1 - Calculus of ureter (4) UTI (urinary tract infection): Status: Acute Code(s): N39.0 - Urinary tract infection, site not specified (5) Acute kidney injury: Status: Acute Code(s): N17.9 - Acute kidney failure, unspecified (6) Type 2 diabetes mellitus with hyperglycemia: Status: Acute Code(s): E11.65 - Type 2 diabetes mellitus with hyperglycemia (7) Essential (primary) hypertension: Status: Acute Code(s): I10 - Essential (primary) hypertension (8) Hyperlipidemia: Status: Acute Code(s): E78.5 - Hyperlipidemia, unspecified (9) Muscle spasm: Status: Acute Code(s): M62.838 - Other muscle spasm (10) BPH (benign prostatic hyperplasia): Status: Acute Code(s): N40.0 - Benign prostatic hyperplasia without lower urinary tract symptoms Qualifiers: Lower urinary tract symptom presence: unspecified whether lower urinary tract symptoms present Qualified Code(s): N40.0 - Benign prostatic hyperplasia without lower urinary tract symptoms (11) Diabetic polyneuropathy: Status: Acute Code(s): E11.42 - Type 2 diabetes mellitus with diabetic polyneuropathy Plan 74 year old male with below past medical history hospitalized for left ureteral stones x 2, underwent cystoscopy, ureteroscopy laser lithotripsy of stone fragments in the left ureter, no stent 11/05/[address] Pham, complicated by rhabdomyolysis, urinary tract infection, acute kidney injury, admitted to TCU with debility, here for rehabilitation, strengthening, prior to discharge home alone. * Debility - PT/OT. * Pain - Tylenol 1000mg q6 prn pain (1-10). * Bowel - senna/colace 1 tablet bid, Magnesium citrate 300mL po daily prn. * Adult immunization - Administer pneumonia vaccine, covid vaccine, flu vaccine as appropriate. * DVT prophylaxis - Lovenox 30mg sc daily. * Burkholderia Gladioli UTI - Augmentin 500mg bidcm thru 11/10/2024. * Hyperlipidemia - Atorvastatin 40mg qhs. * Diabetic neuropathy - Gabapentin 100mg tidcm. * Hypertension - Lisinopril 5mg daily. * Skin irritation - Calmoseptine topical bid. * Diabetes Mellitus II - Metformin 500mg bidcm. * BPH - Tamsulosin 0.4mg daily. Medications at Discharge Home Medications atorvastatin 40 mg tablet 40 mg PO QHS CHOLESTEROL 11/07/18 lisinopril 5 mg tablet 5 mg PO DAILY blood pressure 04/25/19 metformin 500 mg tablet 500 mg PO BID diabetes 02/03/20 gabapentin 100 mg capsule 100 mg PO TIDCM pain 30 days #90 caps 12/03/21 tamsulosin 0.4 mg capsule 0.4 mg PO DAILY@1730 bph 14 days #14 caps 09/25/24 acetaminophen 500 mg tablet 1,000 mg (2 x 500 mg) PO Q8H PRN PRN Pain Score 1-3 #0 tabs 11/07/24 tramadol 50 mg tablet 50 mg PO Q6H PRN PRN Pain Score 6-10 Or Pre Pt/Ot 7 days #28 tabs 11/27/24 Hospital Course Operations - (See below.) Procedures None Summary of Care Provided Minutes Spent on Discharge: 35 Hospital Course: 74 year old male with below past medical history hospitalized for left ureteral stones x 2, underwent cystoscopy, ureteroscopy laser lithotripsy of stone fragments in the left ureter, no stent 11/05/[address] Pham, complicated by rhabdomyolysis, urinary tract infection, acute kidney injury, admitted to TCU with debility, here for rehabilitation, strengthening, prior to discharge home alone. Discharge home alone 11/29/2024, [facility] PT/OT/SN/MAYNARD/SW, FWW. FWW: Patient is unsafe to use a cane and requires a walker for ambulation in the home and the community. Physical Exam Const alert General Appearance: cooperative HEENT normocephalic Eyes PERRL and EOMs intact bilaterally Neck supple, no JVD and no carotid bruits Resp normal respiratory effort, normal air movement and clear to auscultation bilaterally Cardio regular rate and regular rhythm GI normal to inspection, nondistended, normoactive bowel sounds, non-tender and non-distended Extremity normal capillary refill General Extremity: Negative for edema Skin no rashes or lesions noted General Skin Exam: no breakdown Psych affect normal Appearance: appropriate Weight / BMI Weight Weight: 94.892 kg Body Mass Index (BMI) 30.9 ABG / Lab / Microbiology Data 11/22/24 05:40 11/22/24 05:40 Laboratory: Laboratory Results - last 24 hr 11/27/24 06:06: POC Glucose 104 11/27/24 17:08: POC Glucose 95 Microbiology: Microbiology 11/20/24 08:10 Urine, Catheterized Urine Culture - Final Burkholderia gladioli 11/19/24 20:55 Mucosa - Nasopharyngeal Respiratory Panel (PCR) - Final 11/20/24 02:00 Stool Clostridioides difficile (PCR) - Final 11/19/24 17:45 Nasal Secretion SARS-CoV-2 Antigen (Rapid) - Final D/C Instructions Discharge Diet: No restrictions Discharge Activity: Return to Normal Activity, May Shower and Use Walker Weight Bearing Status: Weight bearing as tolerated Call your doctor if you observe: Fever of 101 or Higher, Inability to urinate, Inability to have a bowel movement, Shortness of breath, Dizziness, Fainting spells, Swelling in the ankles, Chest pain and Uncontrolled pain DC O2, CPAP, BIPAP Needs Home O2 Discharge instructions: No Additional Instructions: Discharge home alone 11/29/2024, [facility] PT/OT/SN/MAYNARD/SW, FWW. FWW: Patient is unsafe to use a cane and requires a walker for ambulation in the home and the community. Please Follow Up With: Dr. Pham When: As scheduled. Meaningful Use Info Meaningful Use Meaningful Use Diagnoses (Choose all that apply): None applicable Ischemic Stroke Statin Dosing Therapy Reference: STATIN DOSE THERAPY REFERENCE: * Patients > 75 years receive moderate or high dose statin therapy. * Patients 75 years or YOUNGER should receive HIGH intensity statin dose unless contraindicated. You will be required to document reason for non-treatment if statin daily dose does not meet guidelines. HIGH DOSE STATIN THERAPY DAILY Atorvastatin > than or = to 40 mg Rosuvastatin > than or = to 20 mg Amlodipine + Atorvastatin > than or = to 2.5/40 mg Ezetimibe + Simvastatin 10/80 mg Simvastatin 80mg Discharge Plan Admission Admit Date/Time: 11/07/24 18:54 Primary Reason for Your Visit: Debility. Attending Provider: Mitch Mcwilliams Chi Primary Care Provider: Mitch Mcwilliams Chi Instructions Additional Instructions / Restrictions: Discharge home alone 11/29/2024, [facility] PT/OT/SN/MAYNARD/SW, FWW. FWW: Patient is unsafe to use a cane and requires a walker for ambulation in the home and the community. Discharge Orders/Prescriptions Prescriptions: New tramadol 50 mg Tablet 50 mg PO Q6H PRN PRN (Reason: Pain Score 6-10 Or Pre Pt/Ot) 7 Days Qty: 28 0RF Continued atorvastatin 40 MG tablet 40 mg PO QHS lisinopril 5 MG tablet 5 mg PO DAILY metformin 500 MG tablet 500 mg PO BID gabapentin 100 mg Capsule 100 mg PO TIDCM 30 Days Qty: 90 0RF tamsulosin 0.4 mg Capsule 0.4 mg PO DAILY@1730 14 Days Qty: 14 0RF acetaminophen 500 mg Tablet 1,000 mg PO Q8H PRN PRN (Reason: Pain Score 1-3) Qty: 0 0RF Discontinued cholecalciferol (vitamin D3) 125 mcg (5,000 unit) Capsule 125 mcg PO DAILY Qty: 0 0RF amoxicillin-pot clavulanate [Augmentin] 500-125 mg tablet 1 tab PO BID 3 Days Qty: 6 0RF Referrals / Follow Up: Jose Manuel Pham MD [Med Staff - Active Staff] - (follow up when discharged from TCU) Mitch Mcwilliams Chi, MD [Primary Care Provider] - 12/03/24 2:40 pm Disposition Disposition (needs filled in before D/C Order can be placed): Home Health Service
[2024-11-27] MEDS: Atorvastatin Calcium 40 MG Tablet PO (20:38)
--- NOTE | 2024-11-27 20:41 | NURSING ---
patient requests hs meds at this time
[2024-11-28 06:59] LABS: Bedside Glucose 107 mg/dL (74-106)
[2024-11-28 10:00] VITALS: BP 109/67; PULSE 75; RESP 18; TEMP 36.6; O2SAT 98
[2024-11-28] MEDS: traMADol 50 MG Tablet PO (10:22)
[2024-11-28] MEDS: Gabapentin 100 MG Capsule PO ×3 (10:22→18:43)
[2024-11-28] MEDS: Doxycycline 100 MG CAPSULE PO ×2 (10:23→20:48)
[2024-11-28] MEDS: Senna/Docusate Sodium 1 Tablet PO ×2 (10:23→20:49)
[2024-11-28] MEDS: Enoxaparin 40 MG/0.4 ML Syringe SC (10:23)
[2024-11-28] MEDS: Lisinopril 5 MG Tablet PO (10:23)
[2024-11-28] MEDS: metFORMIN HCl 500 MG Tablet PO ×2 (10:23→17:10)
[2024-11-28] MEDS: Menthol/Lanolin/Calamine/Znox 113 GM Tube 1 APPLIC TOPICAL ×2 (10:26→20:51)
[2024-11-28 16:31] LABS: Bedside Glucose 115 mg/dL (74-106)
[2024-11-28] MEDS: Tamsulosin HCl 0.4 MG Capsule PO (17:10)
[2024-11-28] MEDS: Atorvastatin Calcium 40 MG Tablet PO (20:49)
[2024-11-29 06:39] LABS: Bedside Glucose 119 mg/dL (74-106)
[2024-11-29 06:57] LABS: Anion Gap 12 (5-15); BUN 25 mg/dL (4-19); BUN/Creat Ratio 24.9 RATIO (10-20); Calcium,Total 9.1 mg/dL (7.6-11.0); Carbon Dioxide 24.9 mmol/L (21.0-32.0); Chloride 102 mmol/L (98-108); EST Glomerular Filtration Rate 78 (>60); Estimated Creatinine Clearance 71.45 ml/min (50-250); Glucose 106 mg/dL (70-99); Potassium 4.5 mmol/L (3.3-5.1); Sodium Level 138 mmol/L (133-145)
[2024-11-29 07:35] LABS: Absolute Neutrophil Count 4.3 X10^3/uL (2.0-7.7); Basophil# 0.02 X10^3/uL; Basophil% 0.3 % (0-1); Eosinophil# 0.07 X10^3/uL; Hematocrit 31.8 % (40-54); Hemoglobin 10.1 g/dL (13.0-16.5); Lymphocyte % 28.8 % (19-41); Mean Corp Hgb Conc 31.8 g/dL (32-36); Mean Corpuscular Hgb 31.3 pg (27.0-32.0); Mean Corpuscular Volume 98.5 fL (80-94); Mean Platelet Vol. 9.2 fl (6.2-12.0); Monocyte# 0.69 X10^3/uL; Monocyte% 9.5 % (0-10); NRBC Flagged by Analyzer 0.3 % (0-5); Neutrophil # 4.28 X10^3/uL (2.7-7.7); Neutrophil % 58.8 % (47-70); Platelet Count 289 K/mm3 (150-450); RBC Distribution Width CV 12.4 % (11.6-14.6); RBC Distribution Width SD 44.4 fl (35.1-43.9); Red Blood Count 3.23 M/mm3 (4.6-6.2); White Blood Count 7.3 K/mm3 (4.4-11.0)
[2024-11-29 07:46] VITALS: BP 103/74; PULSE 91; RESP 16; TEMP 36.5; O2SAT 93
[2024-11-29] MEDS: Enoxaparin 40 MG/0.4 ML Syringe SC (07:49)
[2024-11-29] MEDS: Senna/Docusate Sodium 1 Tablet PO (07:49)
[2024-11-29] MEDS: metFORMIN HCl 500 MG Tablet PO (07:49)
[2024-11-29] MEDS: Lisinopril 5 MG Tablet PO (07:49)
[2024-11-29] MEDS: Doxycycline 100 MG CAPSULE PO (07:50)
[2024-11-29] MEDS: Menthol/Lanolin/Calamine/Znox 113 GM Tube 1 APPLIC TOPICAL (07:51)
[2024-11-29] MEDS: Gabapentin 100 MG Capsule PO ×2 (07:53→12:53)
[2024-11-29 16:21] VITALS: BP 112/91; PULSE 93; RESP 16; O2SAT 96
== END 2024-11-29 16:27 | disposition home health service (06) | DRG 949 ==
PROVIDERS: Admitting Provider Family Medicine Geriatric Medicine; PCP Family Medicine Geriatric Medicine; Visit Provider Family Medicine Geriatric Medicine
DX: T79.6XXD Traumatic ischemia of muscle, subsequent encounter (principal); N39.0 Urinary tract infection, site not specified; M62.82 Rhabdomyolysis; N17.9 Acute kidney failure, unspecified; N20.1 Calculus of ureter; E11.42 Type 2 diabetes mellitus with diabetic polyneuropathy; E11.65 Type 2 diabetes mellitus with hyperglycemia; E78.00 Pure hypercholesterolemia, unspecified; B96.89 Other specified bacterial agents as the cause of diseases classified elsewhere; I10 Essential (primary) hypertension; M62.838 Other muscle spasm; W19.XXXD Unspecified fall, subsequent encounter; Z79.84 Long term (current) use of oral hypoglycemic drugs; G89.29 Other chronic pain; N40.0 Benign prostatic hyperplasia without lower urinary tract symptoms; Z86.14 Personal history of Methicillin resistant Staphylococcus aureus infection; Z79.899 Other long term (current) drug therapy; Z23 Encounter for immunization
CPT/HCPCS: 36415; 71046; 80048; 80061; 81001; 82962; 85025; 87077; 87086; 87088; 87186; 87493; 87633; 87811; 90480; 91322; 97110; 97162; 97166; 97530; 97535; 97802; A4216

== ENCOUNTER → 2024-12-20 | Outpatient (CLI) | payer MEDICARE, OTHER, SELFPAY ==
[2024-12-20 17:09] LABS: Absolute Lymphocyte Count 1.78 X10^3/uL (0.83-4.51); Absolute Neutrophil Count 3.6 X10^3/uL (2.0-7.7); Basophil# 0.02 X10^3/uL; Basophil% 0.3 % (0-1); Eosinophil# 0.04 X10^3/uL; Eosinophils% 0.7 % (0-5); Hematocrit 35.9 % (40-54); Hemoglobin 11.7 g/dL (13.0-16.5); Lymphocyte # 1.78 X10^3/ul (0.83-4.51); Lymphocyte % 30.7 % (19-41); Mean Corp Hgb Conc 32.6 g/dL (32-36); Mean Corpuscular Hgb 31.6 pg (27.0-32.0); Mean Platelet Vol. 9.2 fl (6.2-12.0); Monocyte# 0.35 X10^3/uL; NRBC Flagged by Analyzer 0 % (0-5); Neutrophil # 3.58 X10^3/uL (2.7-7.7); Neutrophil % 61.8 % (47-70); Platelet Count 267 K/mm3 (150-450); RBC Distribution Width CV 13.4 % (11.6-14.6); RBC Distribution Width SD 47.8 fl (35.1-43.9); White Blood Count 5.8 K/mm3 (4.4-11.0)
[2024-12-20 17:47] LABS: ALB/GLOB Ratio 1.7 RATIO (0.9-2.4); AST(SGOT) 17 U/L (<=37); Alanine Aminotransfer ALT/SGPT 20 U/L (<=46); Albumin, Serum 4.2 g/dL (3.4-4.8); Alkaline Phosphatase 65 U/L (40-129); Anion Gap 12 (5-15); BUN 29 mg/dL (4-19); BUN/Creat Ratio 30.5 RATIO (10-20); Calcium,Total 9.2 mg/dL (7.6-11.0); Carbon Dioxide 20.4 mmol/L (21.0-32.0); Chloride 108 mmol/L (98-108); Creatinine, Serum 0.95 mg/dL (0.70-1.20); EST Glomerular Filtration Rate 83 (>60); Globulin 2.5 g/dL (2.2-4.2); Glucose 129 mg/dL (70-99); Potassium 4.3 mmol/L (3.3-5.1); Protein, Total 6.7 g/dL (5.9-8.4); Sodium Level 140 mmol/L (133-145); Thyroid Stim Hormone (TSH) 0.716 uIU/mL (0.300-4.200); Vitamin D,25 Hydroxy 10.2 ng/mL (30-100)
== END | disposition home or self-care (01) ==
PROVIDERS: PCP Family Medicine Geriatric Medicine; Referring Provider Family Medicine Geriatric Medicine; Visit Provider Family Medicine Geriatric Medicine
DX: E11.22 Type 2 diabetes mellitus with diabetic chronic kidney disease (principal); N18.9 Chronic kidney disease, unspecified; I12.9 Hypertensive chronic kidney disease with stage 1 through stage 4 chronic kidney disease, or unspecified chronic kidney disease; E55.9 Vitamin D deficiency, unspecified
CPT/HCPCS: 36415; 80053; 82306; 84443; 85025

== ENCOUNTER → 2025-07-08 | Outpatient (CLI) | payer MEDICARE, OTHER, SELFPAY ==
[2025-07-08 16:16] LABS: Hematocrit 36.5 % (40-54); Hemoglobin 11.9 g/dL (13.0-16.5); Immature Granulocytes Count 0.050 X10^3/uL (0.0-0.0); Mean Corp Hgb Conc 32.6 g/dL (32-36); Mean Corpuscular Volume 95.3 fL (80-94); Mean Platelet Vol. 9.8 fl (6.2-12.0); NRBC Flagged by Analyzer 0 % (0-5); Platelet Count 223 K/mm3 (150-450); RBC Distribution Width CV 13.0 % (11.6-14.6); RBC Distribution Width SD 45.1 fl (35.1-43.9); Red Blood Count 3.83 M/mm3 (4.6-6.2); White Blood Count 6.8 K/mm3 (4.4-11.0)
[2025-07-08 17:46] LABS: AST(SGOT) 22 U/L (<=37); Alanine Aminotransfer ALT/SGPT 19 U/L (<=46); Albumin, Serum 4.3 g/dL (3.4-4.8); Alkaline Phosphatase 69 U/L (40-129); Anion Gap 15 (5-15); BUN 37 mg/dL (4-19); BUN/Creat Ratio 17.9 RATIO (10-20); Calcium,Total 9.6 mg/dL (7.6-11.0); Carbon Dioxide 20.8 mmol/L (21.0-32.0); Chloride 106 mmol/L (98-108); Globulin 2.5 g/dL (2.2-4.2); Glucose 236 mg/dL (70-99); Potassium 4.8 mmol/L (3.3-5.1); Vitamin D,25 Hydroxy 36.7 ng/mL (30-100)
--- OUTSIDE RECORDS SUMMARY | 2025-07-08 19:59 | XMS RPT_ITS | CCD ---
Author Organization [facility] Care Team Providers Care Physics And Astronomy Professor Name Role Phone OVIDIO ROBLES Unavailable Unavailable CARLI NELIA Unavailable Unavailable Dr. Mitch Mcwilliams Chi Primary Care Provider [phone] Abdias Nicole Emergency Provider [phone] Tyrone Mora Admit Provider Dr. Tyrone Mora Attending Provider Dr. Tyrone Mora Other Provider Dr. Melinda Pretty Attending Provider [phone] Melinda Pretty Other Provider [phone] Oj VILLA, Dr. Mitch Davenport Primary Care Provider Adolfo VILLA, Dr. Clifford Attending Provider Adolfo VILLA, Dr. Clifford Emergency Provider Oj VILLA, Dr. Mitch Davenport Attending Provider Oj VILLA, Dr. Mitch Davenport Referring Provider Vero VILLA, Dr. Jose Manuel Cutler Other Provider Dr. Gino Chaudhary DO Emergency Provider Faheem VILLA, Dr. Gne Mayo Admit Provider Faheem VILLA, Dr. Gen Mayo Attending Provider Faheem VILLA, Dr. Gen Mayo Other Provider Vero VILLA, Dr. Jose Manuel Cutler Attending Provider [phone] Vero VILLA, Dr. Jose Manuel Cutler Referring Provider Oj VILLA, Dr. Mitch Davenport Primary Care Provider Sally SANCHEZ, Dr. Hurtado Emergency Provider de Alireza DO, Dr. Maldonado Admit Provider Unavail able de Alireza DO, Dr. Maldonado Attending Provider Unav ailable de Alireza DO, Dr. Maldonado Other Provider Unavail able Chase VILLA, Dr. Paris Attending Provider Chase VILLA, Dr. Paris Other Provider [phone] Jay VILLA, Dr. Calero Attending Provider Oj VILLA, Dr. Mitch Davenport Primary Care Provider Vero VILLA, Dr. Jose Manuel Cutler Other Provider Oj VILLA, Dr. Mitch Davenport Attending Provider de Alireza , Dr. Maldonado Referring Provider Unav ailable jO VILLA, Dr. Mitch Davenport Admit Provider Oj VILLA, Dr. Mitch Davenport Referring Provider Oj, Mitch Chi Primary Care Unavailable Oj, Mitch Chi Referring Unavailable Oj, Mitch Chi Attending Unavailable VeroJose ManuelArnold Consulting Unavailable Oj, Mitch Chi Primary Care Unavailable Joel Baldwin Admitting Unavailable Wellington Stone Attending Unavailable Joel Baldwin Consulting Unavailable Chase, Wellington Consulting Unavailable Abdias Thompson Attending Unavailable Oj, Mitch Chi Primary Care Unavailable Joel Baldwin Referring Unavailable Joel Baldwin Attending Unavailable Oj, Mitch Chi Attending Unavailable Oj, Mitch Chi Primary Care Unavailable Oj, Mitch Chi Primary Care Unavailable Darrin Mata Attending Unavailable VeroJose Manuel Consulting Unavailable Gen Mayen Admitting Unavailable Gen Mayen Attending Unavailable Oj, Mitch Chi Primary Care Unavailable Vero, Arnold Referring Unavailable Vero, Arnold Attending Unavailable Oj, Mitch Chi Primary Care Unavailable Vero, Arnold Consulting Unavailable Oj, Mitch Chi Primary Care Unavailable Oj, Mitch Chi Referring Unavailable Oj, Mitch Chi Attending Unavailable Vero, Arnold Consulting Unavailable Gen Mayen Admitting Unavailable Kotsonis, Gen F Attending Unavailable Oj, Mitch Chi Primary Care Unavailable Gen Mayen Consulting Unavailable Oj, Mitch Chi Primary Care Unavailable Oj, Mitch Chi Attending Unavailable Jose Manuel Pham Consulting Unavailable Oj, Mitch Chi Primary Care Unavailable Joel Baldwin Admitting Unavailable Wellington Stone Attending Unavailable Joel Baldwin Consulting Unavailable Oj, Mitch Chi Attending Unavailable Oj, Mitch Chi Primary Care Unavailable Oj, Mitch Chi Admitting Unavailable Allergies Allergy Classification Reported Allergen(s) Allergy Type Date of Onset Reaction(s) Facility (20 sources) oxyCODONE; Translations: [oxycodone HCl] Drug Allergy 04-21-2020 Other [facility] Comment on above: shaky, hot, sweaty, nauseated Medications Current Medications Medication Drug Class(es) Dates Sig (Normalized) Sig (Original) acetaminophen 500 mg oral tablet (20 sources) Start: 11-07-2024 take 2 tablets by mouth every eight hours as needed for pain Acetaminophen 500 mg Tablet Active 1000 mg PO EVERY 8 HOURS NEEDED as needed for Pain Score 1-3 0 November 07, 2024 3:18pm Start: 12-03-2021 End: 11-07-2024 take 2 tablets by mouth every six hours as needed for pain Acetaminophen 500 mg Tablet Discontinued 1000 mg PO EVERY 6 HOURS NEEDED as needed for Pain Score 1-3 0 December 03, 2021 12:00am November 07, 2024 3:19pm Start: 12-03-2021 take 1000 mg by mout h every six hours as needed Acetaminophen Active 1000 MG PO EVERY 6 HOURS NEEDED 0 December 03, 2021 12:00am Start: 11-08-2018 End: 12-03-2021 take 1 tablet by mouth every four hours as needed for pain Acetaminophen 500 MG tablet Discontinued 500 mg PO EVERY 4 HOURS NEEDED as needed for Pain November 08, 2018 12:00am December 03, 2021 7:22pm baclofen 10 mg oral tablet (1 source) gamma-Aminobutyric Acid-ergic Agonist Start: 11-17-2021 take 10 mg by mouth once daily Baclofen Active 10 MG PO DAILY November 17, 2021 6:19pm cephalexin 500 mg oral capsule (4 sources) Cephalosporin Antibacterial Start: 04-21-2020 take 500 mg by mouth three times daily Cephalexin Active 500 MG PO THREE TIMES A DAY April 21, 2020 10:54am gabapentin 100 mg oral capsule (20 sources) Anti-epileptic Agent Start: 12-03-2021 take 1 capsule by mouth three times daily at mealtime Gabapentin 100 mg Capsule Active 100 mg PO 3 TIMES DAILY WITH MEALS 90 December 03, 2021 12:00am Start: 11-17-2021 End: 12-03-2021 take 1 capsule by mouth once daily Gabapentin 100 mg capsule Discontinued 100 mg PO DAILY November 17, 2021 12:00am December 03, 2021 7:23pm lisinopril 5 mg oral tablet (19 sources) Angiotensin Converting Enzyme Inhibitor Start: 04-25-2019 take 1 tablet by mouth once daily Lisinopril 5 MG tablet Active 5 mg PO DAILY April 25, 2019 12:00am metFORMIN hydrochloride 500 mg oral tablet (20 sources) Biguanide Start: 02-03-2020 take 1000 mg by mouth twice daily Metformin Active 1000 MG PO TWICE A DAY February 03, 2020 3:04pm Start: 09-20-2014 End: 02-03-2020 take 1 tablet by mouth twice daily Metformin 500 mg tablet Discontinued 500 mg PO TWICE A DAY October 23, 2018 10:21am October 24, 2018 8:56am naproxen 500 mg oral tablet (1 source) Nonsteroidal Anti-inflammatory Drug Start: 11-17-2021 take 500 mg by mouth once daily Naproxen Active 500 MG PO DAILY November 17, 2021 6:18pm Nirmatrelvir-Ri tonavir (4 sources) Start: 08-11-2022 Nirmatrelvir-R iton avir (Paxlovid (Eua)) 300 mg (150 mg x 2)-100 mg tablets,dose pack Active 0 PO .COMPLEX August 11, 2022 1:00am take TWO 150 mg tablets of nirmatrelvir with ONE 100 mg tablet of ritonavir twice daily for 5 days Start: 08-11-2022 Nirmatrelvir-R itonavir (Paxlovid (Eua)) 300 mg (150 mg x 2)- 100 mg tablets,dose pack Active 0 PO .COMPLEX August 11, 2022 12:00am take TWO 150 mg tablets of nirmatrelvir with ONE 100 mg tablet of ritonavir twice daily for 5 days tamsulosin hydrochloride 0.4 mg oral capsule (20 sources) alpha-Adrenergic Nica Start: 09-25-2024 take 1 capsule by mouth once daily Tamsulosin 0.4 mg Capsule Active 0.4 mg PO DAILY@1730 14 14 September 25, 2024 1:00am Start: 11-03-2018 End: 01-17-2019 take 1 capsule by mouth once daily Tamsulosin 0.4 MG capsule Discontinued 0.4 mg PO DAILY November 03, 2018 12:00am January 17, 2019 9:50am traMADol hydrochloride 50 mg oral tablet (20 sources) Opioid Agonist Start: 11-27-2024 take 1 tablet by mouth every six hours as needed for pain Tramadol 50 mg Tablet Active 50 mg PO EVERY 6 HOURS NEEDED as needed for Pain Score 6-10 Or Pre Pt/Ot 28 7 November 27, 2024 12:00am Start: 12-03-2021 End: 09-23-2024 take 1 tablet by mouth every six hours as needed for pain Tramadol 50 mg Tablet Discontinued 50 mg PO EVERY 6 HOURS NEEDED as needed for Pain Score 4-10 28 7 December 03, 2021 12:00am September 23, 2024 6:58am Start: 12-10-2015 End: 11-29-2017 take 1 tablet by mouth every four hours as needed for pain Tramadol 50 MG tablet Discontinued 50 mg PO EVERY 4 HOURS NEEDED as needed for Pain December 10, 2015 12:00am November 29, 2017 8:15am Completed/Discontinued Medications Medication Drug Class(es) Dates Sig (Normalized) Sig (Original) acetaminophen 325 mg / HYDROcodone bitartrate 5 mg oral tablet (20 sources) Opioid Agonist Start: 06-25-2024 End: 09-23-2024 Hydrocodone-Acetami nophen 5-325 mg tablet Discontinued 1 {tbl} PO EVERY 6 HOURS NEEDED as needed for Pain 12 3 June 25, 2024 September 23, 2024 6:58am Start: 11-22-2021 End: 12-03-2021 Hydrocodone-Acetaminophen 5- 325 mg tablet Discontinued 1 {tbl} PO EVERY 6 HOURS NEEDED as needed for Pain 12 3 November 23, 2021 1:33pm December 03, 2021 7:22pm Start: 11-22-2021 End: 12-03-2021 take 1 tablet by mouth every six hours as needed Hydrocodone-Acetaminophen Discontinued 1 TABLET PO EVERY 6 HOURS NEEDED 12 November 23, 2021 1:33pm December 03, 2021 7:22pm Start: 11-17-2021 take 1 tablet by cirilo th every six hours Hydrocodone-Acetaminophen Active 1 TABLE T PO EVERY 6 HOURS 12 November 17, 2021 10:25pm Start: 11-07-2021 take 1 tablet by cirilo th every four hours as needed Hydrocodone-Acetaminophen Active 1 TABLE T PO EVERY 4 HOURS NEEDED 14 November 07, 2021 10:50am Start: 04-21-2020 End: 04-23-2020 Hydrocodone-Acetaminophen 1 TABLET tablet Discontinued 1 {tbl} PO EVERY 4 HOURS NEEDED as needed for Pain 12 April 21, 2020 April 22, 2020 12:00am April 23, 2020 12:02am Start: 04-21-2020 End: 04-23-2020 take 1 tablet by mouth every four hours as needed Hydrocodone-Acetaminophen Discontinued 1 TABLET PO EVERY 4 HOURS NEEDED 12 April 21, 2020 April 23, 2020 12:02am Start: 05-02-2019 End: 05-07-2019 Hydrocodone-Acetaminophen 1 TABLET tablet Discontinued 1 {tbl} PO EVERY 4 HOURS NEEDED as needed for Pain 20 May 02, 2019 May 06, 2019 12:00am May 07, 2019 12:10am Start: 05-02-2019 End: 05-07-2019 take 1 tablet by mouth every four hours as needed Hydrocodone-Acetaminophen Discontinued 1 TABLET PO EVERY 4 HOURS NEEDED 20 May 02, 2019 May 07, 2019 12:10am Start: 02-03-2019 End: 02-06-2019 Hydrocodone-Acetaminophen 1 TABLET tablet Discontinued 1 {tbl} PO EVERY 6 HOURS NEEDED as needed for Pain 10 February 03, 2019 February 05, 2019 12:00am February 06, 2019 12:07am Start: 02-03-2019 End: 02-06-2019 take 1 tablet by mouth every six hours as needed Hydrocodone-Acetaminophen Discontinued 1 TABLET PO EVERY 6 HOURS NEEDED 10 February 03, 2019 February 06, 2019 12:07am Start: 11-03-2018 End: 11-06-2018 Hydrocodone-Acetaminophen 1 TABLET tablet Discontinued 1 {tbl} PO EVERY 6 HOURS NEEDED as needed for Pain 12 3 November 03, 2018 12:00am November 05, 2018 12:00am November 06, 2018 12:09am Start: 11-03-2018 End: 11-06-2018 take 1 tablet by mouth every six hours as needed Hydrocodone-Acetaminophen Discontinued 1 TABLET PO EVERY 6 HOURS NEEDED 12 3 November 03, 2018 12:00am November 06, 2018 12:09am Start: 06-19-2018 End: 10-24-2018 Hydrocodone-Acetaminophen 5- 325 mg tablet Discontinued 1 {tbl} PO .twice daily as needed for Pain 60 September 13, 2018 October 24, 2018 8:59am Start: 06-19-2018 End: 10-24-2018 take 1 tablet by mouth twice daily Hydrocodone-Acetaminophen Discontinued 1 TABLET PO .twice daily 60 September 13, 2018 October 24, 2018 8:59am Start: 11-29-2017 End: 06-19-2018 Hydrocodone-Acetaminophen 5- 325 mg tablet Discontinued 1 {tbl} PO THREE TIMES A DAY as needed for Pain 60 May 02, 2018 June 19, 2018 4:56pm Start: 11-29-2017 End: 06-19-2018 take 1 tablet by mouth three times daily Hydrocodone-Acetaminophen Discontinued 1 TABLET PO THREE TIMES A DAY 60 May 02, 2018 June 19, 2018 4:56pm Start: 09-20-2014 End: 11-29-2017 Hydrocodone-Acetaminophen 1 TABLET tablet Discontinued 1 {tbl} PO 4 TIMES DAILY NEEDED as needed for Pain September 20, 2014 1:00am November 29, 2017 11:40am Start: 09-20-2014 End: 11-29-2017 take 1 tablet by mouth four times daily as needed Hydrocodone-Acetaminophen Discontinued 1 TABLET PO 4 TIMES DAILY NEEDED September 20, 2014 1:00am November 29, 2017 11:40am amoxicillin 500 mg / clavulanate 125 mg oral tablet (3 sources) Penicillin-class Antibacterial Start: 11-07-2024 End: 11-27-2024 Amoxicillin-Pot Clavulanate (Augmentin) 500-125 mg tablet Discontinued 1 {tbl} PO TWICE A DAY 6 3 November 07, 2024 12:00am November 27, 2024 8:39pm atorvastatin 40 mg oral tablet (20 sources) HMG-CoA Reductase Inhibitor Start: 11-29-2017 End: 11-07-2018 take 1 tablet by mouth once daily Atorvastatin 40 mg tablet Discontinued 40 mg PO daily September 12, 2018 1:45pm November 07, 2018 3:02pm cholecalciferol 0.125 mg oral capsule (3 sources) Vitamin D Start: 11-07-2024 End: 11-27-2024 take 1 capsule by mouth once daily Cholecalciferol (Vitamin D3) 125 mcg (5,000 unit) Capsule Discontinued 125 ug PO DAILY November 07, 2024 12:00am November 27, 2024 8:39pm ciprofloxacin 250 mg oral tablet (19 sources) Quinolone Antimicrobial Start: 12-10-2015 End: 11-29-2017 take 1 tablet by mouth twice daily Ciprofloxacin Hcl 250 MG tablet Discontinued 250 mg PO TWICE A DAY December 10, 2015 12:00am November 29, 2017 8:15am diazePAM 2 mg oral tablet (16 sources) Benzodiazepine Start: 11-17-2021 End: 12-03-2021 take 1 tablet by mouth twice daily as needed for muscle spasms Diazepam (Valium) 2 mg tablet Discontinued 2 mg PO TWICE A DAY as needed for muscle spasm November 17, 2021 12:00am December 03, 2021 7:22pm 24 hr dilTIAZem hydrochloride 180 mg extended release oral capsule (20 sources) Calcium Channel Nica Start: 09-20-2014 End: 01-04-2019 take 1 capsule by mouth once daily Diltiazem Hcl 180 mg capsule,extended release 24hr Discontinued 180 mg PO DAILY September 12, 2018 1:45pm November 07, 2018 3:02pm furosemide 40 mg oral tablet (19 sources) Loop Diuretic Start: 01-28-2015 End: 04-12-2018 take 1 tablet by mouth once daily as needed Furosemide 40 mg tablet Discontinued 40 mg PO DAILY NEEDED as needed for Swelling January 28, 2015 12:00am April 12, 2018 8:27am glipiZIDE er 5 mg 24 hr extended release oral tablet (19 sources) Sulfonylurea Start: 11-07-2017 End: 07-18-2018 take 1 tablet by mouth once daily Glipizide 5 mg tablet extended release 24 hr Discontinued 5 mg PO daily November 07, 2017 12:00am July 18, 2018 11:06am Nirmatrelvir-Ritonav ir (Paxlovid (Eua)) 300 mg (150 mg x 2)-100 mg tablets,dose pack (6 sources) Start: 08-11-2022 End: 09-23-2024 Nirmatrelvir-Ritona vir (Paxlovid (Eua)) 300 mg (150 mg x 2)-100 mg tablets,dose pack Discontinued 0 PO .COMPLEX August 11, 2022 1:00am September 23, 2024 6:58am take TWO 150 mg tablets of nirmatrelvir with ONE 100 mg tablet of ritonavir twice daily for 5 days ondansetron 8 mg disintegrating oral tablet (6 sources) Serotonin-3 Receptor Antagonist Start: 06-25-2024 End: 09-23-2024 take 1 tablet by mouth every eight hours as needed for nausea and vomiting Ondansetron 8 mg tablet,disintegrati ng Discontinued 8 mg PO Q8H as needed for nausea and vomiting June 25, 2024 1:00am September 23, 2024 6:58am pravastatin sodium 40 mg oral tablet (19 sources) HMG-CoA Reductase Inhibitor Start: 09-20-2014 End: 11-29-2017 take 1 tablet by mouth once daily Pravastatin 40 MG tablet Discontinued 40 mg PO DAILY September 20, 2014 1:00am November 29, 2017 8:13am predniSONE 20 mg oral tablet (20 sources) Start: 11-17-2021 End: 12-03-2021 take 2 tablets by mouth once daily Prednisone 20 mg tablet Discontinued 40 mg PO DAILY November 22, 2021 10:10pm December 03, 2021 7:22pm Start: 11-17-2021 End: 12-03-2021 take 40 mg by mouth once daily Prednisone Discontinued 40 MG PO DAILY November 22, 2021 10:10pm December 03, 2021 7:22pm Problems Active Problems Problem Classification Problem Date Documented Date Episodic/Chronic Abdominal pain (1 source) Unspecified abdominal pain; Translations: [Unspecified abdominal pain] Onset: 11-13-2024 Episodic Acute and unspecified renal failure (15 sources) Acute renal failure syndrome; Translations: [Acute kidney failure, unspecified] Onset: 09-26-2024 09-23-2024 Episodic Calculus of urinary tract (20 sources) Kidney stone; Translations: [Calculus of kidney] Onset: 09-26-2024 04-21-2020 Episodic Chronic ulcer of skin (19 sources) Ulcer of lower extremity; Translations: [Non-pressure chronic ulcer of unspecified part of right lower leg with fat layer exposed] 04-21-2020 Chronic Diabetes mellitus with complications (20 sources) Polyneuropathy due to diabetes mellitus; Translations: [Type 2 diabetes mellitus with diabetic polyneuropathy] Onset: 12-25-2024 Chronic Diabetes mellitus without complication (20 sources) Type 2 diabetes mellitus; Translations: [Type 2 diabetes mellitus without complications] Chronic Disorders of lipid metabolism (20 sources) Hyperlipidemia; Translations: [Hyperlipidemia, unspecified] Chronic E Codes: Fall (20 sources) Fall; Translations: [Unspecified fall, initial encounter] Onset: 11-13-2024 Episodic E Codes: Place of occurrence (1 source) Unspecified place in unspecified non-institutional (private) residence as the place of occurrence of the external cause; Translations: [Unspecified place in unspecified non-institutional (private) residence as the place of occurrence of the external cause] Onset: 11-13-2024 Episodic Essential hypertension (20 sources) Hypertensive disorder; Translations: [Essential (primary) hypertension] Onset: 10-18-2024 Chronic Comment on above: not controlled on me ds Fever of unknown origin (9 sources) Fever; Translations: [Fever, unspecified] Onset: 11-13-2024 11-04-2024 Episodic Fluid and electrolyte disorders (8 sources) Dehydration; Translations: [Dehydration] 11-04-2024 Episodic Hyperplasia of prostate (11 sources) Benign prostatic hyperplasia; Translations: [Benign prostatic hyperplasia without lower urinary tract symptoms] Onset: 11-13-2024 11-04-2024 Chronic Inflammatory conditions of male genital organs (9 sources) Chronic prostatitis; Translations: [Chronic prostatitis] Onset: 11-13-2024 11-04-2024 Chronic Malaise and fatigue (20 sources) Asthenia; Translations: [Other malaise] Onset: 11-13-2024 Episodic Osteoarthritis (19 sources) Arthritis; Translations: [Unspecified osteoarthritis, unspecified site] 11-08-2018 Chronic Comment on above: KNEES USES A WALKER Other connective tissue disease (20 sources) Pain in right lower limb; Translations: [Pain in right leg] 11-07-2021 Episodic Other connective tissue disease (2 sources) Recurrent falls ; Translations: [Repeated falls] Episodic Other connective tissue disease (2 sources) Repeated falls; Translations: [History of fall] Episodic Other connective tissue disease (15 sources) Spasm; Translations: [Other muscle spasm] 11-23-2021 Episodic Other connective tissue disease (2 sources) Other muscle spasm; Translations: [Spasm of muscle] Episodic Other connective tissue disease (10 sources) Rhabdomyolysis; Translations: [Rhabdomyolysis] 11-04-2024 Episodic Other diseases of kidney and ureters (11 sources) Hydronephrosis; Translations: [Hydronephrosis with renal and ureteral calculous obstruction] 02-04-2019 Episodic Other diseases of kidney and ureters (8 sources) Hydronephrosis with renal and ureteral calculous obstruction; Translations: [Hydronephrosis with urinary obstruction due to ureteral calculus] 02-04-2019 Episodic Other diseases of veins and lymphatics (19 sources) Venous insufficiency of leg; Translations: [Venous insufficiency (chronic) (peripheral)] 04-21-2020 Episodic Other ear and sense organ disorders (19 sources) Decreased hearing ; Translations: [Unspecified hearing loss, unspecified ear] 11-08-2018 Chronic Other injuries and conditions due to external causes (15 sources) Closed injury of head; Translations: [Unspecified injury of head, initial encounter] 12-17-2021 Episodic Other injuries and conditions due to external causes (4 sources) Unspecified injury of head, initial encounter; Translations: [Head injury, unspecified] Episodic Other injuries and conditions due to external causes (1 source) Traumatic ischemia of muscle, subsequent encounter; Translations: [Traumatic ischemia of muscle, subsequent encounter] Onset: 12-03-2024 Episodic Other injuries and conditions due to external causes (1 source) Traumatic ischemia of muscle, initial encounter; Translations: [Traumatic ischemia of muscle, initial encounter] Onset: 11-13-2024 Episodic Other nervous system disorders (8 sources) Walking disability; Translations: [Difficulty in walking, not elsewhere classified] 11-04-2024 Chronic Other nervous system disorders (1 source) Difficulty in walking, not elsewhere classified; Translations: [Difficulty in walking, not elsewhere classified] Onset: 11-13-2024 Chronic Other nutritional; endocrine; and metabolic disorders (8 sources) Body mass index 40+ - severely obese; Translations: [Morbid (severe) obesity due to excess calories] 11-04-2024 Chronic Other nutritional; endocrine; and metabolic disorders (1 source) Morbid (severe) obesity due to excess calories; Translations: [Morbid (severe) obesity due to excess calories] Onset: 11-13-2024 Chronic Other nutritional; endocrine; and metabolic disorders (1 source) Body mass index (BMI) 45.0-49.9, adult; Translations: [Body mass index [BMI] 45.0-49.9, adult] Onset: 11-13-2024 Chronic Skin and subcutaneous tissue infections (19 sources) Cellulitis of leg, excluding foot; Translations: [Cellulitis of right lower limb] 02-04-2020 Episodic Spondylosis; intervertebral disc disorders; other back problems (20 sources) Chronic back pain ; Translations: [Dorsalgia, unspecified] Episodic Superficial injury; contusion (19 sources) Abrasion of face; Translations: [Abrasion of other part of head, initial encounter] 07-18-2019 Episodic Unclassified (2 sources) follow up when discharged from [facility] Urinary tract infections (20 sources) Urinary tract infectious disease; Translations: [Urinary tract infection, site not specified] Onset: 11-13-2024 11-04-2024 Episodic Viral infection (10 sources) Disease caused by 2019-nCoV; Translations: [COVID-19] 08-11-2022 Episodic Past or Other Problems Problem Classification Problem Date Documented Da te Episodic/Chronic Other screening for suspected conditions (not mental disorders or infectious disease) (1 source) Encounter for screening for malignant neoplasm of prostate; Translations: [Encounter for screening for malignant neoplasm of prostate] Onset: 08-22-2024 Episodic Results Test Name Value Interpretation Reference Range Facility Absolute lymphocyte countOrd ered By: Mitch Mcwilliams on 12-20-2024 Lymphocytes Auto (Unsp spec) [#/Vol] 1.78 10*3/uL 0.83-4.51 [facility] Absolute neutrophil countOrd ered By: Mitch Mcwilliams on 12-20-2024 Neutrophils (Bld) [#/Vol] 3.6 10*3/uL 2.0-7.7 [facility] Anion gap in Serum or Plasma Ordered By: Mitch Mcwilliams on 12-20-2024 Anion gap [Moles/Vol] 12 mmol/L 12-20 [facility] Automated lymphocyte count a s percentage of total leukocytesOrdered By: Mitch Mcwilliams on 12-20-2024 Lymphocytes/100 WBC Auto (Unsp spec) 30.7 % - [facility] BUN/creatinine ratioOrdered By: Mitch Mcwilliams on 12-20-2024 Urea nitrogen/Creatinine [Mass ratio] 30.5 mg/mg High 10- [facility] Basophil percentageOrdered B y: Mitch Mcwilliams on 12-20-2024 Basophils/100 WBC (Bld) 0.3 % 0-[address] [facility] Bilirubin, totalOrdered By: Mitch Mcwilliams on 12-20-2024 Bilirubin [Mass/Vol] 0.90 mg/dL 0.00-1.30 [facility] CBC W/Diff, Automatedon 12-06 Absolute Lymph 1.78 X10 3/uL Normal 0.83-4.51 [facility] Comment on above: Performed By: #### L 506.1001, [id number], [id number], L100.0100 ####[facility] [id number] [place], [address] Absolute Neut 3.6 X10 3/uL Normal 2.0-7.7 [facility] Comment on above: Performed By: #### L 506.1001, [id number], [id number], L100.0100 ####[facility] [id number] [place], [address] Basophils/100 WBC (Bld) 0.3 % Normal 0-[address] [facility] Comment on above: Performed By: #### L 506.1001, [id number], [id number], L100.0100 ####[facility] [id number] [place], [place], [id number] Eosinophils/100 WBC (Bld) 0.7 % Normal 0-5 [facility] Comment on above: Performed By: #### L 506.1001, L501.9520, L500.4050, L100.0100 ####[facility] [address] [place], [address] Erythrocyte distribution width (RBC) [Ratio] 13.4 % Normal 11.6-14.6 [facility] Comment on above: Performed By: #### L 506.1001, L501.9520, L500.4050, L100.0100 ####[facility] [address] [place], [address] Hematocrit (Bld) [Volume fraction] 35.9 % Low 40-54 [facility] Comment on above: Performed By: #### L 506.1001, L501.9520, L500.4050, L100.0100 ####[facility] [address] [place], [address] Hemoglobin (Bld) [Mass/Vol] 11.7 g/dL Low 13.0-16. 5 [facility] Comment on above: Performed By: #### L 506.1001, L501.9520, L500.4050, L100.0100 ####[facility] [address] [place], [address] IG% 0.500 Normal 0.0-0.9 [facility] Comment on above: Result Comment: IG% - Immature Granulocytes (promyelocytes, myelocytes andmetamyelocytes) > 1% indicates that a LEFT SHIFT is Present. Performed By: #### L 506.1001, L501.9520, L500.4050, L100.0100 ####[facility] [address] [place], [address] Lymphocytes/100 WBC (Bld) 30.7 % Normal 19-41 [facility] Comment on above: Performed By: #### L 506.1001, L501.9520, L500.4050, L100.0100 ####[facility] [address] [place], [address] MCH (RBC) [Entitic mass] 31.6 pg Normal 27.0-32.0 [facility] Comment on above: Performed By: #### L 506.1001, L501.9520, L500.4050, L100.0100 ####[facility] [address] [place], [address] MCHC (RBC) [Mass/Vol] 32.6 g/dL Normal 32-36 [facility] Comment on above: Performed By: #### L 506.1001, L501.9520, L500.4050, L100.0100 ####[facility] [address] [place], [address] MCV (RBC) [Entitic vol] 97.0 fL High 80-[address] [facility] Comment on above: Performed By: #### L 506.1001, L501.9520, L500.4050, L100.0100 ####[facility] [address] [place], [address] Monocytes/100 WBC (Bld) 6.0 % Normal 0-10 [facility] Comment on above: Performed By: #### L 506.1001, L501.9520, L500.4050, L100.0100 ####[facility] [address] [place], [address] Neutrophils/100 WBC (Bld) 61.8 % Normal 47-70 [facility] Comment on above: Performed By: #### L 506.1001, L501.9520, L500.4050, L100.0100 ####[facility] [address] [place], [address] Nucleated RBC (Bld) [#/Vol] 0 10*3/uL Normal 0-5 [facility] Comment on above: Performed By: #### L 506.1001, L501.9520, L500.4050, L100.0100 ####[facility] [address] [place], [address] Platelet mean volume (Bld) [Entitic vol] 9.2 fL Normal 6.2-12.0 [facility] Comment on above: Performed By: #### L 506.1001, L501.9520, L500.4050, L100.0100 ####[facility] [address] [place], [address] Platelets (Bld) [#/Vol] 267 10*3/uL Normal 150-450 [facility] Comment on above: Performed By: #### L 506.1001, L501.9520, L500.4050, L100.0100 ####[facility] [address] [place], [address] RBC (Bld) [#/Vol] 3.70 10*6/uL Low 4.6-6.2 [facility] Comment on above: Performed By: #### L 506.1001, L501.9520, L500.4050, L100.0100 ####[facility] [address] [place], [address] RDW SD 47.8 fl High 35.1-43.9 [facility] Comment on above: Performed By: #### L 506.1001, L501.9520, L500.4050, L100.0100 ####[facility] [address] [place], [address] WBC (Bld) [#/Vol] 5.8 10*3/uL Normal 4.4-11.0 [facility] Comment on above: Performed By: #### L 506.1001, L501.9520, L500.4050, L100.0100 ####[facility] [address] [place], [address] Carbon dioxide, total [Moles /volume] in Central venous bloodOrdered By: Mitch Mcwilliams on 12-20-2024 CO2 [Moles/Vol] 20.4 mmol/L Low 21.0-32.0 [facility] Chloride assayOrdered By: Byron Mcwilliams on 12-20-2024 Chloride [Moles/Vol] 108 mmol/L 98-108 [facility] Comprehensive Metabolic Prof ilon 12-20-2024 Albumin [Mass/Vol] 4.2 g/dL Normal 3.4-4.8 [facility] Comment on above: Performed By: #### L 506.1001, L501.9520, L500.4050, L100.0100 ####[facility] [address] [place], [address] Albumin/Globulin [Mass ratio] 1.7 {ratio} Normal 0.9-2.4 [facility] Comment on above: Performed By: #### L 506.1001, L501.9520, L500.4050, L100.0100 ####[facility] [address] [place], [address] ALK PHOS 65 U/L Normal 40-129 [facility] Comment on above: Performed By: #### L 506.1001, L501.9520, L500.4050, L100.0100 ####[facility] [address] [place], [address] ALT [Catalytic activity/Vol] 20 U/L Normal <=46 [facility] Comment on above: Performed By: #### L 506.1001, L501.9520, L500.4050, L100.0100 ####[facility] [address] [place], [address] AST [Catalytic activity/Vol] 17 U/L Normal <=37 [facility] Comment on above: Performed By: #### L 506.1001, L501.9520, L500.4050, L100.0100 ####[facility] [address] [place], [address] Bilirubin [Mass/Vol] 0.90 mg/dL Normal 0.00-1.30 [facility] Comment on above: Performed By: #### L 506.1001, L501.9520, L500.4050, L100.0100 ####[facility] [address] [place], [address] BUN/CRE 30.5 RATIO High 10-20 [facility] Comment on above: Performed By: #### L 506.1001, L501.9520, L500.4050, L100.0100 ####[facility] [address] [place], [address] Calcium [Mass/Vol] 9.2 mg/dL Normal 7.6-11.0 [facility] Comment on above: Performed By: #### L 506.1001, L501.9520, L500.4050, L100.0100 ####[facility] [address] [place], [address] Chloride [Moles/Vol] 108 mmol/L Normal 98-108 [facility] Comment on above: Performed By: #### L 506.1001, L501.9520, L500.4050, L100.0100 ####[facility] [address] [place], [address] CO2 [Moles/Vol] 20.4 mmol/L Low 21.0-32.0 [facility] Comment on above: Performed By: #### L 506.1001, L501.9520, L500.4050, L100.0100 ####[facility] [address] [place], [address] Creatinine [Mass/Vol] 0.95 mg/dL Normal 0.70-1.20 [facility] Comment on above: Performed By: #### L 506.1001, L501.9520, L500.4050, L100.0100 ####[facility] [address] [place], [address] GAP 12 Normal 5-15 [facility] Comment on above: Performed By: #### L 506.1001, L501.9520, L500.4050, L100.0100 ####[facility] [address] [place], [address] GFR/1.73 sq M.predicted among non-blacks MDRD (S/P/Bld) [Vol rate/Area] 83 mL/min/{1.73_m2} Normal >60 [facility] Comment on above: Result Comment: mL/m in/1.73m2 CKD-EPI Creatinine Equation (2020) Performed By: #### L 506.1001, L501.9520, L500.4050, L100.0100 ####[facility] [address] [place], [address] Globulin (S) [Mass/Vol] 2.5 g/dL Normal 2.2-4.2 [facility] Comment on above: Performed By: #### L 506.1001, L501.9520, L500.4050, L100.0100 ####[facility] [address] [place], [address] Glucose [Mass/Vol] 129 mg/dL High 70-99 [facility] Comment on above: Performed By: #### L 506.1001, L501.9520, L500.4050, L100.0100 ####[facility] [address] [place], [address] Potassium [Moles/Vol] 4.3 mmol/L Normal 3.3-5.1 [facility] Comment on above: Performed By: #### L 506.1001, L501.9520, L500.4050, L100.0100 ####[facility] [address] [place], [address] Sodium [Moles/Vol] 140 mmol/L Normal 133-145 [facility] Comment on above: Performed By: #### L 506.1001, L501.9520, L500.4050, L100.0100 ####[facility] [address] [place], [address] T PROT 6.7 g/dL Normal 5.9-8.4 [facility] Comment on above: Performed By: #### L 506.1001, L501.9520, L500.4050, L100.0100 ####[facility] [address] [place], [address] Urea nitrogen [Mass/Vol] 29 mg/dL High 4-19 [facility] Comment on above: Performed By: #### L 506.1001, L501.9520, L500.4050, L100.0100 ####[facility] [address] [place], [address] Eosinophil percentageOrdered By: Mitch Mcwilliams on 12-20-2024 Eosinophils/100 WBC (Bld) 0.7 % 0-5 [facility] Erythrocyte distribution wid th ratioOrdered By: Mitch Oj on 12-20-2024 Erythrocyte distribution width (RBC) [Ratio] 13.4 % 11.6-14.6 [facility] Erythrocyte distribution wid th standard deviationOrdered By: Mitch Oj on 12-20-2024 Erythrocyte distribution width (RBC) [Ratio] 47.8 fl High 35.1-43.9 [facility] Glomerular filtration rate ( GFR) estimation/1.73 sq m using serum, plasma, or whole bOrdered By: Mitch Mcwilliams on 12-20-2024 GFR/1.73 sq M.predicted among non-blacks MDRD (S/P/Bld) [Vol rate/Area] 83 mL/min/{1.73_m2} >60 [facility] Comment on above: mL/min/1.73m2 CKD-EP I Creatinine Equation (2020) Hematocrit Auto (Bld) [Volum e fraction]Ordered By: Mitch Mcwilliams on 12-20-2024 Hematocrit (Bld) [Volume fraction] 35.9 % Low 40-54 [facility] Hemoglobin measurementOrdere d By: Mitch Mcwilliams on 12-20-2024 Hemoglobin (Bld) [Mass/Vol] 11.7 g/dL Low 13.0-16. 5 [facility] Immature granulocytes/100 WB C Auto (Bld)Ordered By: Mitch Mcwilliams 12-20-2024 Immature granulocytes/100 WBC (Bld) 0.500 % 0.0-0.9 [facility] Comment on above: IG% - Immature Granu locytes (promyelocytes, myelocytes and metamyelocytes) > 1% indicates that a LEFT SHIFT is Present. Laboratory - Chemistry and C hemistry - challengeOrdered By: Mitch Mcwilliams 12-20-2024 AST [Catalytic activity/Vol] 17 U/L <38 [facility] MCV (mean corpuscular volume ) determinationOrdered By: Mitch Mcwilliams 12-20-2024 MCV (RBC) [Entitic vol] 97.0 fL High 80-94 [facility] Mean corpuscular hemoglobin (MCH) determinationOrdered By: Mitch Mcwilliams 12-20-2024 MCH (RBC) [Entitic mass] 31.6 pg 27.0-32.0 [facility] Mean corpuscular hemoglobin concentration (MCHC) determinationOrdered By: Mitch Mcwilliams 12-20-2024 MCHC (RBC) [Mass/Vol] 32.6 g/dL 32-36 [facility] Mean platelet volume determi nationOrdered By: Mitch Mcwilliams 12-20-2024 Platelet mean volume (Bld) [Entitic vol] 9.2 fL 6.2-12.0 [facility] Monocyte percentageOrdered B y: Mitch Mcwilliams 12-20-2024 Monocytes/100 WBC (Bld) 6.0 % 0-[address] [facility] Neutrophil percentageOrdered By: Mitch Mcwilliams 12-20-2024 Neutrophils/100 WBC (Bld) 61.8 % 47-70 [facility] Nucleated red blood cell per centageOrdered By: Mitch Mcwilliams 12-20-2024 Nucleated RBC/100 WBC (Bld) [Ratio] 0 % 0-5 [facility] Platelet countOrdered By: Byron Mcwilliams on 12-20-2024 Platelets (Bld) [#/Vol] 267 10*3/uL 150-450 [facility] Potassium measurement (mass/ volume)Ordered By: Mitch Mcwilliams on 12-20-2024 Potassium (Unsp spec) [Mass/Vol] 4.3 mmol/L 3.3-5.1 [facility] RBC Auto (Bld) [#/Vol]Ordere d By: Mitch Mcwilliams on 12-20-2024 RBC (Bld) [#/Vol] 3.70 10*6/uL Low 4.6-6.2 [facility] Serum creatinine measurement (mass/volume)Ordered By: Mitch Mcwilliams on 12-20-2024 Creatinine [Mass/Vol] 0.95 mg/dL 0.70-1.20 [facility] Serum globulin measurementOr dered By: Mitch Mcwilliams 12-20-2024 Globulin (S) [Mass/Vol] 2.5 g/dL 2.2-4.2 [facility] Serum glucose measurement (m ass/volume)Ordered By: Mitch Mcwilliams 12-20-2024 Glucose [Mass/Vol] 129 mg/dL High 70-99 [facility] Serum or plasma alanine swanson otransferase (ALT) measurementOrdered By: Mitch Mcwilliams 12-20-2024 ALT [Catalytic activity/Vol] 20 U/L <47 [facility] Serum or plasma albumin yin urement (mass/volume)Ordered By: Mitch Mcwilliams 12-20-2024 Albumin [Mass/Vol] 4.2 g/dL 3.4-4.8 [facility] Serum or plasma albumin/glob ulin mass ratioOrdered By: Mitch Mcwilliams 12-20-2024 Albumin/Globulin [Mass ratio] 1.7 {ratio} 0.9-2.4 [facility] Serum or plasma alkaline cody sphatase measurementOrdered By: Mitch Mcwilliams 12-20-2024 ALP [Catalytic activity/Vol] 65 U/L 40-129 [facility] Serum or plasma calcium yin urement (mass/volume)Ordered By: Mitch Mcwilliams 12-20-2024 Calcium [Mass/Vol] 9.2 mg/dL 7.6-11.0 [facility] Serum or plasma urea nitroge n measurement (mass/volume)Ordered By: Mitch Mcwilliams on 12-20-2024 Urea nitrogen [Mass/Vol] 29 mg/dL High 4-19 [facility] Sodium levelOrdered By: Mitch Mcwilliams on 12-20-2024 Sodium [Moles/Vol] 140 mmol/L 133-145 [facility] TSH DL <= 0.005 mIU/L QnOrde red By: Mitch Mcwilliams on 12-20-2024 TSH Qn 0.716 uIU/mL 0.300-4.20 0 [facility] Thyroid Stim Hormone (TSH)on 12-20-2024 TSH 0.716 uIU/mL Normal 0.300-4.20 0 [facility] Comment on above: Performed By: #### L 506.1001, L501.9520, L500.4050, L100.0100 ####[facility] [address] [place], [address] Total proteinOrdered By: Mitch Mcwilliams on 12-20-2024 Protein [Mass/Vol] 6.7 g/dL 5.9-8.4 [facility] Vitamin D,25 Hydroxyon 12-20 Vitamin D 25-OH 10.2 ng/mL Low 30-100 [facility] Comment on above: Result Comment: Raiza min D StatusDeficiency: <20 ng/mL (50nmol/L)Insufficiency: 20-30 ng/mL (50-75 nmol/L)Sufficiency: 30-100 ng/mL (75-250 nmol/L)Toxicity: >100 ng/mL (>250 nmol/L) Performed By: #### L 506.1001, L501.9520, L500.4050, L100.0100 ####[facility] [address] [place], [address] White blood cell (WBC) count Ordered By: Mitch Mcwilliams on 12-20-2024 WBC (Bld) [#/Vol] 5.8 10*3/uL 4.4-11.0 [facility] Basic Metabolic Profile (BMP )on 12-13-2024 BUN Normal 4-19 [facility] Comment on above: Result Comment: Canc elled via OM: Order cancelled - Patient discharged Performed By: #### L 100.0100, L500.2500 ####[facility] [address] [place], [address] BUN/CRE Normal 10-20 [facility] Comment on above: Result Comment: Canc elled via OM: Order cancelled - Patient discharged Performed By: #### L 100.0100, L500.2500 ####[facility] [address] [place], [address] Calcium Normal 7.6-11.0 [facility] Comment on above: Result Comment: Canc elled via OM: Order cancelled - Patient discharged Performed By: #### L 100.0100, L500.2500 ####[facility] [address] [place], [address] CL Normal 98-108 [facility] Comment on above: Result Comment: Canc elled via OM: Order cancelled - Patient discharged Performed By: #### L 100.0100, L500.2500 ####[facility] [address] [place], [address] CO2 Normal 21.0-32.0 [facility] Comment on above: Result Comment: Canc elled via OM: Order cancelled - Patient discharged Performed By: #### L 100.0100, L500.2500 ####[facility] [address] [place], [address] CREAT,SERUM Normal 0.70-1.20 [facility] Comment on above: Result Comment: Canc elled via OM: Order cancelled - Patient discharged Performed By: #### L 100.0100, L500.2500 ####[facility] [address] [place], [address] eGFR Normal >60 [facility] Comment on above: Result Comment: Canc elled via OM: Order cancelled - Patient discharged Performed By: #### L 100.0100, L500.2500 ####[facility] [address] [place], [address] GAP Normal 5-15 [facility] Comment on above: Result Comment: Canc elled via OM: Order cancelled - Patient discharged Performed By: #### L 100.0100, L500.2500 ####[facility] [address] [place], [address] GLU Normal 70-99 [facility] Comment on above: Result Comment: Canc elled via OM: Order cancelled - Patient discharged Performed By: #### L 100.0100, L500.2500 ####[facility] [address] [place], [address] Potassium Normal 3.3-5.1 [facility] Comment on above: Result Comment: Canc elled via OM: Order cancelled - Patient discharged Performed By: #### L 100.0100, L500.2500 ####[facility] [address] [place], [address] Basic Metabolic Profile (BMP) Normal 133-145 [facility] Comment on above: Result Comment: Canc elled via OM: Order cancelled - Patient discharged Performed By: #### L 100.0100, L500.2500 ####[facility] [address] [place], [address] CBC W/Diff, Automatedon 05-0 8-2024 Absolute Neut Normal 2.0-7.7 [facility] Comment on above: Result Comment: Canc elled via OM: Order cancelled - Patient discharged Performed By: #### L 100.0100, L500.2500 ####[facility] [address] [place], [address] HCT Normal 40-54 [facility] Comment on above: Result Comment: Canc elled via OM: Order cancelled - Patient discharged Performed By: #### L 100.0100, L500.2500 ####[facility] [address] [place], [address] HGB Normal 13.0-16.5 [facility] Comment on above: Result Comment: Canc elled via OM: Order cancelled - Patient discharged Performed By: #### L 100.0100, L500.2500 ####[facility] [address] [place], [address] MCH Normal 27.0-32.0 [facility] Comment on above: Result Comment: Canc elled via OM: Order cancelled - Patient discharged Performed By: #### L 100.0100, L500.2500 ####[facility] [address] [place], [address] MCHC Normal 32-36 [facility] Comment on above: Result Comment: Canc elled via OM: Order cancelled - Patient discharged Performed By: #### L 100.0100, L500.2500 ####[facility] [address] [place], [address] MCV Normal 80-94 [facility] Comment on above: Result Comment: Canc elled via OM: Order cancelled - Patient discharged Performed By: #### L 100.0100, L500.2500 ####[facility] [address] [place], [address] NEUT% Normal 47-70 [facility] Comment on above: Result Comment: Canc elled via OM: Order cancelled - Patient discharged Performed By: #### L 100.0100, L500.2500 ####[facility] [address] [place], [address] PLT Normal 150-450 [facility] Comment on above: Result Comment: Canc elled via OM: Order cancelled - Patient discharged Performed By: #### L 100.0100, L500.2500 ####[facility] [address] [place], [address] RBC Normal 4.6-6.2 [facility] Comment on above: Result Comment: Canc elled via OM: Order cancelled - Patient discharged Performed By: #### L 100.0100, L500.2500 ####[facility] [address] [place], [address] RDW CV Normal 11.6-14.6 [facility] Comment on above: Result Comment: Canc elled via OM: Order cancelled - Patient discharged Performed By: #### L 100.0100, L500.2500 ####[facility] [address] [place], [address] RDW SD Normal 35.1-43.9 [facility] Comment on above: Result Comment: Canc elled via OM: Order cancelled - Patient discharged Performed By: #### L 100.0100, L500.2500 ####[facility] [address] [place], [address] WBC Normal 4.4-11.0 [facility] Comment on above: Result Comment: Canc elled via OM: Order cancelled - Patient discharged Performed By: #### L 100.0100, L500.2500 ####[facility] [address] [place], [address] Basic Metabolic Profile (BMP )on 12-06-2024 BUN Normal 4-19 [facility] Comment on above: Result Comment: Canc elled via OM: Order cancelled - Patient discharged Performed By: #### L 500.2500, L100.0100 ####[facility] [address] [place], [address] BUN/CRE Normal 10-20 [facility] Comment on above: Result Comment: Canc elled via OM: Order cancelled - Patient discharged Performed By: #### L 500.2500, L100.0100 ####[facility] [address] [place], [address] Calcium Normal 7.6-11.0 [facility] Comment on above: Result Comment: Canc elled via OM: Order cancelled - Patient discharged Performed By: #### L 500.2500, L100.0100 ####[facility] [address] [place], [address] CL Normal 98-108 [facility] Comment on above: Result Comment: Canc elled via OM: Order cancelled - Patient discharged Performed By: #### L 500.2500, L100.0100 ####[facility] [address] [place], [address] CO2 Normal 21.0-32.0 [facility] Comment on above: Result Comment: Canc elled via OM: Order cancelled - Patient discharged Performed By: #### L 500.2500, L100.0100 ####[facility] [address] [place], [address] CREAT,SERUM Normal 0.70-1.20 [facility] Comment on above: Result Comment: Canc elled via OM: Order cancelled - Patient discharged Performed By: #### L 500.2500, L100.0100 ####[facility] [address] [place], [address] eGFR Normal >60 [facility] Comment on above: Result Comment: Canc elled via OM: Order cancelled - Patient discharged Performed By: #### L 500.2500, L100.0100 ####[facility] [address] [place], [address] GAP Normal 5-15 [facility] Comment on above: Result Comment: Canc elled via OM: Order cancelled - Patient discharged Performed By: #### L 500.2500, L100.0100 ####[facility] [address] [place], [address] GLU Normal 70-99 [facility] Comment on above: Result Comment: Canc elled via OM: Order cancelled - Patient discharged Performed By: #### L 500.2500, L100.0100 ####[facility] [address] [place], [address] Potassium Normal 3.3-5.1 [facility] Comment on above: Result Comment: Canc elled via OM: Order cancelled - Patient discharged Performed By: #### L 500.2500, L100.0100 ####[facility] [address] [place], [address] Basic Metabolic Profile (BMP) Normal 133-145 [facility] Comment on above: Result Comment: Canc elled via OM: Order cancelled - Patient discharged Performed By: #### L 500.2500, L100.0100 ####[facility] [address] [place], [address] CBC W/Diff, Automatedon 05-0 1-2024 Absolute Neut Normal 2.0-7.7 [facility] Comment on above: Result Comment: Canc elled via OM: Order cancelled - Patient discharged Performed By: #### L 500.2500, L100.0100 ####[facility] [address] [place], [address] HCT Normal 40-54 [facility] Comment on above: Result Comment: Canc elled via OM: Order cancelled - Patient discharged Performed By: #### L 500.2500, L100.0100 ####[facility] [address] [place], [address] HGB Normal 13.0-16.5 [facility] Comment on above: Result Comment: Canc elled via OM: Order cancelled - Patient discharged Performed By: #### L 500.2500, L100.0100 ####[facility] [address] [place], [address] MCH Normal 27.0-32.0 [facility] Comment on above: Result Comment: Canc elled via OM: Order cancelled - Patient discharged Performed By: #### L 500.2500, L100.0100 ####[facility] [address] [place], [address] MCHC Normal 32-36 [facility] Comment on above: Result Comment: Canc elled via OM: Order cancelled - Patient discharged Performed By: #### L 500.2500, L100.0100 ####[facility] [address] [place], [address] MCV Normal 80-94 [facility] Comment on above: Result Comment: Canc elled via OM: Order cancelled - Patient discharged Performed By: #### L 500.2500, L100.0100 ####[facility] [address] [place], [address] NEUT% Normal 47-70 [facility] Comment on above: Result Comment: Canc elled via OM: Order cancelled - Patient discharged Performed By: #### L 500.2500, L100.0100 ####[facility] [address] [place], [address] PLT Normal 150-450 [facility] Comment on above: Result Comment: Canc elled via OM: Order cancelled - Patient discharged Performed By: #### L 500.2500, L100.0100 ####[facility] [address] [place], [address] RBC Normal 4.6-6.2 [facility] Comment on above: Result Comment: Canc elled via OM: Order cancelled - Patient discharged Performed By: #### L 500.2500, L100.0100 ####[facility] [address] [place], [address] RDW CV Normal 11.6-14.6 [facility] Comment on above: Result Comment: Canc elled via OM: Order cancelled - Patient discharged Performed By: #### L 500.2500, L100.0100 ####[facility] [address] [place], [address] RDW SD Normal 35.1-43.9 [facility] Comment on above: Result Comment: Canc elled via OM: Order cancelled - Patient discharged Performed By: #### L 500.2500, L100.0100 ####[facility] [address] [place], [address] WBC Normal 4.4-11.0 [facility] Comment on above: Result Comment: Canc elled via OM: Order cancelled - Patient discharged Performed By: #### L 500.2500, L100.0100 ####[facility] [address] [place], [address] Absolute lymphocyte countOrd ered By: Mitch Mcwilliams on 11-29-2024 Lymphocytes Auto (Unsp spec) [#/Vol] 2.10 10*3/uL 0.83-4.51 [facility] Absolute neutrophil countOrd ered By: Mitch Mcwilliams on 11-29-2024 Neutrophils (Bld) [#/Vol] 4.3 10*3/uL 2.0-7.7 [facility] Anion gap in Serum or Plasma Ordered By: Mitch Mcwilliams on 11-29-2024 Anion gap [Moles/Vol] 12 mmol/L 5-15 [facility] Automated lymphocyte count a s percentage of total leukocytesOrdered By: Mitch Mcwilliams on 11-29-2024 Lymphocytes/100 WBC Auto (Unsp spec) 28.8 % 19-41 [facility] BUN/creatinine ratioOrdered By: iMtch Mcwilliams on 11-29-2024 Urea nitrogen/Creatinine [Mass ratio] 24.9 mg/mg High 10- [facility] Basic Metabolic Profile (BMP )on 11-29-2024 BUN/CRE 24.9 RATIO High 05-27 [facility] Comment on above: Performed By: #### L 100.0100, L500.2500 ####[facility] [address] [place], [address] Calcium [Mass/Vol] 9.1 mg/dL Normal 7.6-11.0 [facility] Comment on above: Performed By: #### L 100.0100, L500.2500 ####[facility] [address] [place], [address] Chloride [Moles/Vol] 102 mmol/L Normal 98-108 [facility] Comment on above: Performed By: #### L 100.0100, L500.2500 ####[facility] [address] [place], [address] CO2 [Moles/Vol] 24.9 mmol/L Normal 21.0-32.0 [facility] Comment on above: Performed By: #### L 100.0100, L500.2500 ####[facility] [address] [place], [address] Creatinine [Mass/Vol] 1.00 mg/dL Normal 0.70-1.20 [facility] Comment on above: Performed By: #### L 100.0100, L500.2500 ####[facility] [address] [place], [address] ECRCL 71.45 ml/min Normal 50-250 [facility] Comment on above: Performed By: #### L 100.0100, L500.2500 ####[facility] [address] [place], [address] GAP 12 Normal 5-15 [facility] Comment on above: Performed By: #### L 100.0100, L500.2500 ####[facility] [address] [place], [address] GFR/1.73 sq M.predicted among non-blacks MDRD (S/P/Bld) [Vol rate/Area] 78 mL/min/{1.73_m2} Normal >60 [facility] Comment on above: Result Comment: mL/m in/1.73m2 CKD-EPI Creatinine Equation (2020) Performed By: #### L 100.0100, L500.2500 ####[facility] [address] [place], [address] Glucose [Mass/Vol] 106 mg/dL High 70-99 [facility] Comment on above: Performed By: #### L 100.0100, L500.2500 ####[facility] [address] [place], [address] Potassium [Moles/Vol] 4.5 mmol/L Normal 3.3-5.1 [facility] Comment on above: Performed By: #### L 100.0100, L500.2500 ####[facility] [address] [place], [address] Sodium [Moles/Vol] 138 mmol/L Normal 133-145 [facility] Comment on above: Performed By: #### L 100.0100, L500.2500 ####[facility] [address] [place], [address] Urea nitrogen [Mass/Vol] 25 mg/dL High 4-19 [facility] Comment on above: Performed By: #### L 100.0100, L500.2500 ####[facility] [address] [place], [address] Basophil percentageOrdered B y: Mitch Oj on 11-29-2024 Basophils/100 WBC (Bld) 0.3 % 0-[address] [facility] Bedside Glucoseon 11-29-2024 FINGERSTICK GLU 119 mg/dL High 74-106 [facility] Comment on above: Result Comment: NITISH CASEY OF PATIENT CARE PER NURSING PROTOCOL Performed By: #### L 501.080 ####[facility] [address] [place], [address] CBC W/Diff, Automatedon Absolute Lymph 2.10 X10 3/uL Normal 0.83-4.51 [facility] Comment on above: Performed By: #### L 100.0100, L500.2500 ####[facility] [address] [place], [address] Absolute Neut 4.3 X10 3/uL Normal 2.0-7.7 [facility] Comment on above: Performed By: #### L 100.0100, L500.2500 ####[facility] [address] [place], [address] Basophils/100 WBC (Bld) 0.3 % Normal 0-[address] [facility] Comment on above: Performed By: #### L 100.0100, L500.2500 ####[facility] [address] [place], [address] Eosinophils/100 WBC (Bld) 1.0 % Normal 0-5 [facility] Comment on above: Performed By: #### L 100.0100, L500.2500 ####[facility] [address] [place], [address] Erythrocyte distribution width (RBC) [Ratio] 12.4 % Normal 11.6-14.6 [facility] Comment on above: Performed By: #### L 100.0100, L500.2500 ####[facility] [address] [place], [address] Hematocrit (Bld) [Volume fraction] 31.8 % Low 40-54 [facility] Comment on above: Performed By: #### L 100.0100, L500.2500 ####[facility] [address] [place], [address] Hemoglobin (Bld) [Mass/Vol] 10.1 g/dL Low 13.0-16. 5 [facility] Comment on above: Performed By: #### L 100.0100, L500.2500 ####[facility] [address] [place], [address] IG% 1.600 High 0.0-0.9 [facility] Comment on above: Result Comment: IG% - Immature Granulocytes (promyelocytes, myelocytes andmetamyelocytes) > 1% indicates that a LEFT SHIFT is Present. Performed By: #### L 100.0100, L500.2500 ####[facility] [address] [place], [address] Lymphocytes/100 WBC (Bld) 28.8 % Normal 19-41 [facility] Comment on above: Performed By: #### L 100.0100, L500.2500 ####[facility] [address] [place], [address] MCH (RBC) [Entitic mass] 31.3 pg Normal 27.0-32.0 [facility] Comment on above: Performed By: #### L 100.0100, L500.2500 ####[facility] [address] [place], [address] MCHC (RBC) [Mass/Vol] 31.8 g/dL Low 32-36 [facility] Comment on above: Performed By: #### L 100.0100, L500.2500 ####[facility] [address] [place], [address] MCV (RBC) [Entitic vol] 98.5 fL High 80-[address] [facility] Comment on above: Performed By: #### L 100.0100, L500.2500 ####[facility] [address] [place], [address] Monocytes/100 WBC (Bld) 9.5 % Normal 0-[address] [facility] Comment on above: Performed By: #### L 100.0100, L500.2500 ####[facility] [address] [place], [address] Neutrophils/100 WBC (Bld) 58.8 % Normal 47-70 [facility] Comment on above: Performed By: #### L 100.0100, L500.2500 ####[facility] [address] [place], [address] Nucleated RBC (Bld) [#/Vol] 0.3 10*3/uL Normal 0-5 [facility] Comment on above: Performed By: #### L 100.0100, L500.2500 ####[facility] [address] [place], [address] Platelet mean volume (Bld) [Entitic vol] 9.2 fL Normal 6.2-12.0 [facility] Comment on above: Performed By: #### L 100.0100, L500.2500 ####[facility] [address] [place], [address] Platelets (Bld) [#/Vol] 289 10*3/uL Normal 150-450 [facility] Comment on above: Performed By: #### L 100.0100, L500.2500 ####[facility] [address] [place], [address] RBC (Bld) [#/Vol] 3.23 10*6/uL Low 4.6-6.2 [facility] Comment on above: Performed By: #### L 100.0100, L500.2500 ####[facility] [address] [place], [address] RDW SD 44.4 fl High 35.1-43.9 [facility] Comment on above: Performed By: #### L 100.0100, L500.2500 ####[facility] [address] [place], [address] WBC (Bld) [#/Vol] 7.3 10*3/uL Normal 4.4-11.0 [facility] Comment on above: Performed By: #### L 100.0100, L500.2500 ####[facility] [address] [place], [address] Carbon dioxide, total [Moles /volume] in Central venous bloodOrdered By: Mitch Mcwilliams on 11-29-2024 CO2 [Moles/Vol] 24.9 mmol/L 21.0-32.0 [facility] Chloride assayOrdered By: Byron Mcwilliams on 11-29-2024 Chloride [Moles/Vol] 102 mmol/L 98-108 [facility] Eosinophil percentageOrdered By: Mitch Mcwilliams 11-29-2024 Eosinophils/100 WBC (Bld) 1.0 % 0-5 [facility] Erythrocyte distribution wid th ratioOrdered By: Mitch Mcwilliams 11-29-2024 Erythrocyte distribution width (RBC) [Ratio] 12.4 % 11.6-14.6 [facility] Erythrocyte distribution wid th standard deviationOrdered By: Mitch Mcwilliams 11-29-2024 Erythrocyte distribution width (RBC) [Ratio] 44.4 fl High 35.1-43.9 [facility] Glomerular filtration rate ( GFR) estimation/1.73 sq m using serum, plasma, or whole bOrdered By: Mitch Mcwilliams on 11-29-2024 GFR/1.73 sq M.predicted among non-blacks MDRD (S/P/Bld) [Vol rate/Area] 78 mL/min/{1.73_m2} >60 [facility] Comment on above: mL/min/1.73m2 CKD-EP I Creatinine Equation (2020) [facility] deOrdered By: Mitch Mcwilliams 11-29-2024 Glucose [Mass/Vol] 119 mg/dL High 74-106 [facility] Comment on above: MANAGEMENT OF PATIEN T CARE PER NURSING PROTOCOL Hematocrit Auto (Bld) [Volum e fraction]Ordered By: Mitch Mcwilliams on 11-29-2024 Hematocrit (Bld) [Volume fraction] 31.8 % Low 40-54 [facility] Hemoglobin measurementOrdere d By: Mitch Mcwilliams 11-29-2024 Hemoglobin (Bld) [Mass/Vol] 10.1 g/dL Low 13.0-16. 5 [facility] Immature granulocytes/100 WB C Auto (Bld)Ordered By: Mitch Mcwilliams on 11-29-2024 Immature granulocytes/100 WBC (Bld) 1.600 % High 0.0-0.9 [facility] Comment on above: IG% - Immature Granu locytes (promyelocytes, myelocytes and metamyelocytes) > 1% indicates that a LEFT SHIFT is Present. MCV (mean corpuscular volume ) determinationOrdered By: Mitch Mcwilliams on 11-29-2024 MCV (RBC) [Entitic vol] 98.5 fL High 80-[address] [facility] Mean corpuscular hemoglobin (MCH) determinationOrdered By: Mitch Mcwilliams on 11-29-2024 MCH (RBC) [Entitic mass] 31.3 pg 27.0-32.0 [facility] Mean corpuscular hemoglobin concentration (MCHC) determinationOrdered By: Mitch Mcwilliams on 11-29-2024 MCHC (RBC) [Mass/Vol] 31.8 g/dL Low 32-36 [facility] Mean platelet volume determi nationOrdered By: Mitch Mcwilliams on 11-29-2024 Platelet mean volume (Bld) [Entitic vol] 9.2 fL 6.2-12.0 [facility] Monocyte percentageOrdered B y: Mitch Mcwilliams on 11-29-2024 Monocytes/100 WBC (Bld) 9.5 % 0-[address] [facility] Neutrophil percentageOrdered By: Mitch Mcwilliams on 11-29-2024 Neutrophils/100 WBC (Bld) 58.8 % 47-70 [facility] Nucleated red blood cell per centageOrdered By: Mitch Mcwilliams on 11-29-2024 Nucleated RBC/100 WBC (Bld) [Ratio] 0.3 % 0-5 [facility] Platelet countOrdered By: Byron Mcwilliams on 11-29-2024 Platelets (Bld) [#/Vol] 289 10*3/uL 150-450 [facility] Potassium measurement (mass/ volume)Ordered By: Mitch Mcwilliams on 11-29-2024 Potassium (Unsp spec) [Mass/Vol] 4.5 mmol/L 3.3-5.1 [facility] RBC Auto (Bld) [#/Vol]Ordere d By: Mitch Oj on 11-29-2024 RBC (Bld) [#/Vol] 3.23 10*6/uL Low 4.6-6.2 [facility] Serum creatinine measurement (mass/volume)Ordered By: Mitch Mcwilliams on 11-29-2024 Creatinine [Mass/Vol] 1.00 mg/dL 0.70-1.20 [facility] Serum glucose measurement (m ass/volume)Ordered By: Mitch Mcwilliams on 11-29-2024 Glucose [Mass/Vol] 106 mg/dL High 70-99 [facility] Serum or plasma calcium yin urement (mass/volume)Ordered By: Mitch Mcwilliams on 11-29-2024 Calcium [Mass/Vol] 9.1 mg/dL 7.6-11.0 [facility] Serum or plasma urea nitroge n measurement (mass/volume)Ordered By: Mitch Mcwilliams on 11-29-2024 Urea nitrogen [Mass/Vol] 25 mg/dL High 4-19 [facility] Sodium levelOrdered By: Mitch Mcwilliams on 11-29-2024 Sodium [Moles/Vol] 138 mmol/L 133-145 [facility] White blood cell (WBC) count Ordered By: Mitch Oj on 11-29-2024 WBC (Bld) [#/Vol] 7.3 10*3/uL 4.4-11.0 [facility] Bedside Glucoseon 11-28-2024 FINGERSTICK GLU 115 mg/dL High 74-106 [facility] Comment on above: Result Comment: NITISH CASEY OF PATIENT CARE PER NURSING PROTOCOL Performed By: #### L 501.080 ####[facility] [address] [place], [place], [address] FINGERSTICK GLU 107 mg/dL High 74-106 [facility] Comment on above: Result Comment: NITISH CASEY OF PATIENT CARE PER NURSING PROTOCOL Performed By: #### L 501.080 ####[facility] [address] [place], [place], [address] Bedside Glucoseon 11-27-2024 FINGERSTICK GLU 95 mg/dL Normal 74-106 [facility] Comment on above: Result Comment: NITISH GEMENT OF PATIENT CARE PER NURSING PROTOCOL Performed By: #### L 501.080 ####[facility] [address] [place], [address] FINGERSTICK GLU 104 mg/dL Normal 74-106 [facility] Comment on above: Result Comment: NITISH GEMENT OF PATIENT CARE PER NURSING PROTOCOL Performed By: #### L 501.080 ####[facility] [address] [place], [address] Bedside Glucoseon 11-26-2024 FINGERSTICK GLU 138 mg/dL High 74-106 [facility] Comment on above: Result Comment: NITISH GEMENT OF PATIENT CARE PER NURSING PROTOCOL Performed By: #### L 501.080 ####[facility] [address] [place], [address] FINGERSTICK GLU 91 mg/dL Normal 74-106 [facility] Comment on above: Result Comment: NITISH GEMENT OF PATIENT CARE PER NURSING PROTOCOL Performed By: #### L 501.080 ####[facility] [address] [place], [address] Bedside Glucoseon 11-25-2024 FINGERSTICK GLU 115 mg/dL High 74-106 [facility] Comment on above: Result Comment: NITISH GEMENT OF PATIENT CARE PER NURSING PROTOCOL Performed By: #### L 501.080 ####[facility] [address] [place], [address] FINGERSTICK GLU 99 mg/dL Normal 74-106 [facility] Comment on above: Result Comment: NITISH GEMENT OF PATIENT CARE PER NURSING PROTOCOL Performed By: #### L 501.080 ####[facility] [address] [place], [address] Bedside Glucoseon 11-24-2024 FINGERSTICK GLU 96 mg/dL Normal 74-106 [facility] Comment on above: Result Comment: NITISH GEMENT OF PATIENT CARE PER NURSING PROTOCOL Performed By: #### L 501.080 ####[facility] [address] [place], [address] FINGERSTICK GLU 144 mg/dL High 74-106 [facility] Comment on above: Result Comment: NITISH GEMENT OF PATIENT CARE PER NURSING PROTOCOL Performed By: #### L 501.080 ####[facility] [address] [place], [address] Bedside Glucoseon 11-23-2024 FINGERSTICK GLU 122 mg/dL High 74-106 [facility] Comment on above: Result Comment: NITISH GEMENT OF PATIENT CARE PER NURSING PROTOCOL Performed By: #### L 501.080 ####[facility] [address] [place], [address] FINGERSTICK GLU 120 mg/dL High 74-106 [facility] Comment on above: Result Comment: NITISH GEMENT OF PATIENT CARE PER NURSING PROTOCOL Performed By: #### L 501.080 ####[facility] [address] [place], [address] Basic Metabolic Profile (BMP )on 11-22-2024 BUN/CRE 13.4 RATIO Normal 10-20 [facility] Comment on above: Performed By: #### L 100.0100, L500.2500 ####[facility] [address] [place], [address] Calcium [Mass/Vol] 8.7 mg/dL Normal 7.6-11.0 [facility] Comment on above: Performed By: #### L 100.0100, L500.2500 ####[facility] [address] [place], [address] Chloride [Moles/Vol] 103 mmol/L Normal 98-108 [facility] Comment on above: Performed By: #### L 100.0100, L500.2500 ####[facility] [address] [place], [address] CO2 [Moles/Vol] 24.4 mmol/L Normal 21.0-32.0 [facility] Comment on above: Performed By: #### L 100.0100, L500.2500 ####[facility] [address] [place], [address] Creatinine [Mass/Vol] 1.22 mg/dL High 0.70-1.20 [facility] Comment on above: Performed By: #### L 100.0100, L500.2500 ####[facility] [address] [place], [address] ECRCL 58.89 ml/min Normal 50-250 [facility] Comment on above: Performed By: #### L 100.0100, L500.2500 ####[facility] [address] [place], [address] GAP 11 Normal 5-15 [facility] Comment on above: Performed By: #### L 100.0100, L500.2500 ####[facility] [address] [place], [address] GFR/1.73 sq M.predicted among non-blacks MDRD (S/P/Bld) [Vol rate/Area] 61 mL/min/{1.73_m2} Normal >60 [facility] Comment on above: Result Comment: mL/m in/1.73m2 CKD-EPI Creatinine Equation (2020) Performed By: #### L 100.0100, L500.2500 ####[facility] [address] [place], [address] Glucose [Mass/Vol] 113 mg/dL High 70-99 [facility] Comment on above: Performed By: #### L 100.0100, L500.2500 ####[facility] [address] [place], [address] Potassium [Moles/Vol] 4.2 mmol/L Normal 3.3-5.1 [facility] Comment on above: Performed By: #### L 100.0100, L500.2500 ####[facility] [address] [place], [address] Sodium [Moles/Vol] 139 mmol/L Normal 133-145 [facility] Comment on above: Performed By: #### L 100.0100, L500.2500 ####[facility] [address] [place], [address] Urea nitrogen [Mass/Vol] 16 mg/dL Normal 4-19 [facility] Comment on above: Performed By: #### L 100.0100, L500.2500 ####[facility] [address] [place], [address] Bedside Glucoseon 11-22-2024 FINGERSTICK GLU 131 mg/dL High 74-106 [facility] Comment on above: Result Comment: NIITSH GEMENT OF PATIENT CARE PER NURSING PROTOCOL Performed By: #### L 501.080 ####[facility] [address] [place], [address] FINGERSTICK GLU 113 mg/dL High 74-106 [facility] Comment on above: Result Comment: NITISH GEMENT OF PATIENT CARE PER NURSING PROTOCOL Performed By: #### L 501.080 ####[facility] [address] [place], [address] CBC W/Diff, Automatedon 04-1 Absolute Lymph 1.89 X10 3/uL Normal 0.83-4.51 [facility] Comment on above: Performed By: #### L 100.0100, L500.2500 ####[facility] [address] [place], [address] Absolute Neut 3.3 X10 3/uL Normal 2.0-7.7 [facility] Comment on above: Performed By: #### L 100.0100, L500.2500 ####[facility] [address] [place], [address] Basophils/100 WBC (Bld) 0.5 % Normal 0-[address] [facility] Comment on above: Performed By: #### L 100.0100, L500.2500 ####[facility] [address] [place], [address] Eosinophils/100 WBC (Bld) 0.5 % Normal 0-5 [facility] Comment on above: Performed By: #### L 100.0100, L500.2500 ####[facility] [address] [place], [address] Erythrocyte distribution width (RBC) [Ratio] 12.1 % Normal 11.6-14.6 [facility] Comment on above: Performed By: #### L 100.0100, L500.2500 ####[facility] [address] [place], [address] Hematocrit (Bld) [Volume fraction] 30.1 % Low 40-54 [facility] Comment on above: Performed By: #### L 100.0100, L500.2500 ####[facility] [address] [place], [address] Hemoglobin (Bld) [Mass/Vol] 9.7 g/dL Low 13.0-16. 5 [facility] Comment on above: Performed By: #### L 100.0100, L500.2500 ####[facility] [address] [place], [address] IG% 0.900 Normal 0.0-0.9 [facility] Comment on above: Result Comment: IG% - Immature Granulocytes (promyelocytes, myelocytes andmetamyelocytes) > 1% indicates that a LEFT SHIFT is Present. Performed By: #### L 100.0100, L500.2500 ####[facility] [address] [place], [address] Lymphocytes/100 WBC (Bld) 29.1 % Normal 19-41 [facility] Comment on above: Performed By: #### L 100.0100, L500.2500 ####[facility] [address] [place], [address] MCH (RBC) [Entitic mass] 31.9 pg Normal 27.0-32.0 [facility] Comment on above: Performed By: #### L 100.0100, L500.2500 ####[facility] [address] [place], [address] MCHC (RBC) [Mass/Vol] 32.2 g/dL Normal 32-36 [facility] Comment on above: Performed By: #### L 100.0100, L500.2500 ####[facility] [address] [place], [address] MCV (RBC) [Entitic vol] 99.0 fL High 80-[address] [facility] Comment on above: Performed By: #### L 100.0100, L500.2500 ####[facility] [address] [place], [address] Monocytes/100 WBC (Bld) 18.9 % High 0-[address] [facility] Comment on above: Performed By: #### L 100.0100, L500.2500 ####[facility] [address] [place], [address] Neutrophils/100 WBC (Bld) 50.1 % Normal 47-70 [facility] Comment on above: Performed By: #### L 100.0100, L500.2500 ####[facility] [address] [place], [address] Nucleated RBC (Bld) [#/Vol] 0 10*3/uL Normal 0-5 [facility] Comment on above: Performed By: #### L 100.0100, L500.2500 ####[facility] [address] [place], [address] Platelet mean volume (Bld) [Entitic vol] 9.4 fL Normal 6.2-12.0 [facility] Comment on above: Performed By: #### L 100.0100, L500.2500 ####[facility] [address] [place], [address] Platelets (Bld) [#/Vol] 353 10*3/uL Normal 150-450 [facility] Comment on above: Performed By: #### L 100.0100, L500.2500 ####[facility] [address] [place], [address] RBC (Bld) [#/Vol] 3.04 10*6/uL Low 4.6-6.2 [facility] Comment on above: Performed By: #### L 100.0100, L500.2500 ####[facility] [address] [place], [address] RDW SD 44.0 fl High 35.1-43.9 [facility] Comment on above: Performed By: #### L 100.0100, L500.2500 ####[facility] [address] [place], [address] WBC (Bld) [#/Vol] 6.5 10*3/uL Normal 4.4-11.0 [facility] Comment on above: Performed By: #### L 100.0100, L500.2500 ####[facility] [address] [place], [address] Urine Cultureon 11-22-2024 URC Normal [facility] Comment on above: Performed By: #### L 400.0001, M100.2200 ####[facility] [address] [place], [address] Bedside Glucoseon 11-21-2024 FINGERSTICK GLU 131 mg/dL High 74-106 [facility] Comment on above: Result Comment: NITISH GEMENT OF PATIENT CARE PER NURSING PROTOCOL Performed By: #### L 501.080 ####[facility] [address] [place], [address] FINGERSTICK GLU 134 mg/dL High 74-106 [facility] Comment on above: Result Comment: NITISH GEMENT OF PATIENT CARE PER NURSING PROTOCOL Performed By: #### L 501.080 ####[facility] [address] [place], [address] Bedside Glucoseon 11-20-2024 FINGERSTICK GLU 160 mg/dL High [facility]106 [facility] Comment on above: Result Comment: NITISH GEMENT OF PATIENT CARE PER NURSING PROTOCOL Performed By: #### L 501.080 ####[facility] [address] [place], [address] FINGERSTICK GLU 117 mg/dL High [address] [place] [address] Comment on above: Result Comment: NITISH GEMENT OF PATIENT CARE PER NURSING PROTOCOL Performed By: #### L 501.080 ####[facility] [address] [place], [address] Bilirubin Test strip Ql (U)O rdered By: Mitch Mcwilliams on 11-20-2024 Bilirubin Ql (U) Negative Negative [facility] CDIFF (PCR)on 11-20-2024 CDIFF Is the patient receiving laxatives? N New/unexplained onset of 3 or more stools in past 24 hrs? Y Pending 027 027 NAP1-B1 Presumptive Negative *for epidemiolologic???use C. Diff PCR Negative- No toxigenic C. Diff Detected Normal [facility] Comment on above: Performed By: #### M 100.6796 ####[facility] [address] [place], [address] Chest PA and Lateralon 11-20 Chest PA and Lateral Normal [facility] Clostridium difficile detect ion by polymerase chain reactionOrdered By: Mitch Mcwilliams on 11-20-2024 C. difficile DNA MADAN+probe Ql (Unsp spec) [facility] Ketones Test strip Ql (U)Ord ered By: Mitch Mcwilliams on 11-20-2024 Ketones Ql (U) Negative Negative [facility] Microscopic analysis of urin e for red blood cells (RBC)Ordered By: Mitch Mcwilliams on 11-20-2024 Microscopic analysis of urine for red blood cells (RBC) 0-5 SEEN /hpf 0-5 [facility] Mucus LM Ql (Urine sed)Order ed By: Mitch Mcwilliams on 11-20-2024 Mucus Ql (Urine sed) 0 SEEN /hpf [facility] Nitrite Test strip Ql (U)Ord ered By: Mitch Mcwilliams on 11-20-2024 Nitrite Ql (U) Negative Negative [facility] Protein Test strip Ql (U)Ord ered By: Mitch Mcwilliams on 11-20-2024 Protein Ql (U) 30 mg/dl High Negative [facility] RESPIRATORY PANEL MOLECULARo n 11-20-2024 RP PANEL Normal [facility] Comment on above: Performed By: #### M 100.638 ####[facility] [address] [place], [address] Squamous epithelial cells de tection in urine sediment by light microscopyOrdered By: Mitch Mcwilliams on 11-20-2024 Epithelial cells.squamous LM Ql (Urine sed) 0 SEEN /hpf 0-5 [facility] Urinalysis, Completeon 11-20 RBC 0-5 SEEN Normal 0-5 [facility] Comment on above: Order Comment: JOSEFINA TER SPECIMEN Performed By: #### L 400.0001, ####[facility] [address] [place], [address] WBC 10-25 SEEN Normal 0-5 [facility] Comment on above: Order Comment: JOSEFINA TER SPECIMEN Performed By: #### L 400.0001, ####[facility] [address] [place], [address] BACTERIA 2+ /hpf Normal None Seen [facility] Comment on above: Order Comment: JOSEFINA TER SPECIMEN Performed By: #### L 400.0001, M100.2200 ####[facility] [address] [place], [address] EPI,SQUAMOUS 0 SEEN Normal 0-5 [facility] Comment on above: Order Comment: JOSEFINA TER SPECIMEN Performed By: #### L 400.0001, M100.2200 ####[facility] [address] [place], [address] Mucus Ql (Urine sed) 0 SEEN Normal [facility] Comment on above: Order Comment: JOSEFINA TER SPECIMEN Performed By: #### L 400.0001, M100.2200 ####[facility] [address] [place], [address] Urine clarityOrdered By: Micth Mcwilliams on 11-20-2024 Clarity (U) Clear Clear [facility] Urine color determinationOrd ered By: Mitch Mcwilliams on 11-20-2024 Color (U) Yellow Yellow [facility] Urine cultureOrdered By: Mitch Mcwilliams on 11-20-2024 Bacteria identified Cx Nom (U) Burkholderia gladioli Abnormal [facility] Urine glucose detectionOrder ed By: Mitch Mcwilliams on 11-20-2024 Glucose Ql (U) Normal mg/dl Normal [facility] Urine leukocyte esterase det ection by dipstickOrdered By: Mitch Mcwilliams 11-20-2024 Leukocyte esterase Test strip Ql (U) 500 /ul High Negative [facility] Urine pHOrdered By: Mitch Mcwilliams on 11-20-2024 pH (U) 6.0 [pH] 5.0 - 8.0 [facility] Urine sediment bacteria coun t by microscopy (number/high power field)Ordered By: Mitch Mcwilliams 11-20-2024 Bacteria LM.HPF (Urine sed) [#/Area] 2 /[HPF] None Seen [facility] Urine specific gravity measu rementOrdered By: Mitch Mcwilliams on 11-20-2024 Specific gravity (U) [Rel density] 1.010 1.002-1.03 0 [facility] Urine urobilinogen measureme ntOrdered By: Mitch Mcwilliams on 11-20-2024 Urobilinogen Ql (U) Normal mg/dl Normal [facility] White blood cell countOrdere d By: Mitch Mcwilliams on 11-20-2024 White blood cell count 10-25 SEEN /hpf 0-5 [facility] Basic Metabolic Profile (BMP )on 11-19-2024 BUN/CRE 17.7 RATIO Normal 10-20 [facility] Comment on above: Performed By: #### L 500.2500, L100.0100 ####[facility] [address] [place], [address] Calcium [Mass/Vol] 8.4 mg/dL Normal 7.6-11.0 [facility] Comment on above: Performed By: #### L 500.2500, L100.0100 ####[facility] [address] [place], [address] Chloride [Moles/Vol] 99 mmol/L Normal 98-108 [facility] Comment on above: Performed By: #### L 500.2500, L100.0100 ####[facility] [address] [place], [address] CO2 [Moles/Vol] 20.5 mmol/L Low 21.0-32.0 [facility] Comment on above: Performed By: #### L 500.2500, L100.0100 ####[facility] [address] [place], [address] Creatinine [Mass/Vol] 1.13 mg/dL Normal 0.70-1.20 [facility] Comment on above: Performed By: #### L 500.2500, L100.0100 ####[facility] [address] [place], [address] ECRCL 63.87 ml/min Normal 50-250 [facility] Comment on above: Performed By: #### L 500.2500, L100.0100 ####[facility] [address] [place], [address] GAP 12 Normal 5-15 [facility] Comment on above: Performed By: #### L 500.2500, L100.0100 ####[facility] [address] [place], [address] GFR/1.73 sq M.predicted among non-blacks MDRD (S/P/Bld) [Vol rate/Area] 67 mL/min/{1.73_m2} Normal >60 [facility] Comment on above: Result Comment: mL/m in/1.73m2 CKD-EPI Creatinine Equation (2020) Performed By: #### L 500.2500, L100.0100 ####[facility] [address] [place], [address] Glucose [Mass/Vol] 110 mg/dL High 70-99 [facility] Comment on above: Performed By: #### L 500.2500, L100.0100 ####[facility] [address] [place], [address] Potassium [Moles/Vol] 4.7 mmol/L Normal 3.3-5.1 [facility] Comment on above: Performed By: #### L 500.2500, L100.0100 ####[facility] [address] [place], [address] Sodium [Moles/Vol] 132 mmol/L Low 133-145 [facility] Comment on above: Performed By: #### L 500.2500, L100.0100 ####[facility] [address] [place], [address] Urea nitrogen [Mass/Vol] 20 mg/dL High 4-19 [facility] Comment on above: Performed By: #### L 500.2500, L100.0100 ####[facility] [address] [place], [address] Bedside Glucoseon 11-19-2024 FINGERSTICK GLU 108 mg/dL High 74-106 [facility] Comment on above: Result Comment: NITISH GEMENT OF PATIENT CARE PER NURSING PROTOCOL Performed By: #### L 501.080 ####[facility] [address] [place], [address] FINGERSTICK GLU 92 mg/dL Normal 74-106 [facility] Comment on above: Result Comment: NITISH GEMENT OF PATIENT CARE PER NURSING PROTOCOL Performed By: #### L 501.080 ####[facility] [address] [place], [address] CBC W/Diff, Automatedon 11-06 Absolute Lymph 1.56 X10 3/uL Normal 0.83-4.51 [facility] Comment on above: Performed By: #### L 500.2500, L100.0100 ####[facility] [address] [place], [address] Absolute Neut 5.7 X10 3/uL Normal 2.0-7.7 [facility] Comment on above: Performed By: #### L 500.2500, L100.0100 ####[facility] [address] [place], [address] Basophils/100 WBC (Bld) 0.2 % Normal 0-[address] [facility] Comment on above: Performed By: #### L 500.2500, L100.0100 ####[facility] [address] [place], [address] Eosinophils/100 WBC (Bld) 0.5 % Normal 0-5 [facility] Comment on above: Performed By: #### L 500.2500, L100.0100 ####[facility] [address] [place], [address] Erythrocyte distribution width (RBC) [Ratio] 12.2 % Normal 11.6-14.6 [facility] Comment on above: Performed By: #### L 500.2500, L100.0100 ####[facility] [address] [place], [address] Hematocrit (Bld) [Volume fraction] 30.4 % Low 40-54 [facility] Comment on above: Performed By: #### L 500.2500, L100.0100 ####[facility] [address] [place], [address] Hemoglobin (Bld) [Mass/Vol] 10.0 g/dL Low 13.0-16. 5 [facility] Comment on above: Performed By: #### L 500.2500, L100.0100 ####[facility] [address] [place], [address] IG% 1.100 High 0.0-0.9 [facility] Comment on above: Result Comment: IG% - Immature Granulocytes (promyelocytes, myelocytes andmetamyelocytes) > 1% indicates that a LEFT SHIFT is Present. Performed By: #### L 500.2500, L100.0100 ####[facility] [address] [place], [address] Lymphocytes/100 WBC (Bld) 18.5 % Low 19-41 [facility] Comment on above: Performed By: #### L 500.2500, L100.0100 ####[facility] [address] [place], [address] MCH (RBC) [Entitic mass] 32.1 pg High 27.0-32.0 [facility] Comment on above: Performed By: #### L 500.2500, L100.0100 ####[facility] [address] [place], [address] MCHC (RBC) [Mass/Vol] 32.9 g/dL Normal 32-36 [facility] Comment on above: Performed By: #### L 500.2500, L100.0100 ####[facility] [address] [place], [address] MCV (RBC) [Entitic vol] 97.4 fL High 80-[address] [facility] Comment on above: Performed By: #### L 500.2500, L100.0100 ####[facility] [address] [place], [address] Monocytes/100 WBC (Bld) 11.8 % High 0-[address] [facility] Comment on above: Performed By: #### L 500.2500, L100.0100 ####[facility] [address] [place], [address] Neutrophils/100 WBC (Bld) 67.9 % Normal 47-70 [facility] Comment on above: Performed By: #### L 500.2500, L100.0100 ####[facility] [address] [place], [address] Nucleated RBC (Bld) [#/Vol] 0 10*3/uL Normal 0-5 [facility] Comment on above: Performed By: #### L 500.2500, L100.0100 ####[facility] [address] [place], [address] Platelet mean volume (Bld) [Entitic vol] 9.2 fL Normal 6.2-12.0 [facility] Comment on above: Performed By: #### L 500.2500, L100.0100 ####[facility] [address] [place], [address] Platelets (Bld) [#/Vol] 385 10*3/uL Normal 150-450 [facility] Comment on above: Performed By: #### L 500.2500, L100.0100 ####[facility] [address] [place], [address] RBC (Bld) [#/Vol] 3.12 10*6/uL Low 4.6-6.2 [facility] Comment on above: Performed By: #### L 500.2500, L100.0100 ####[facility] [address] [place], [address] RDW SD 43.7 fl Normal 35.1-43.9 [facility] Comment on above: Performed By: #### L 500.2500, L100.0100 ####[facility] [address] [place], [address] WBC (Bld) [#/Vol] 8.4 10*3/uL Normal 4.4-11.0 [facility] Comment on above: Performed By: #### L 500.2500, L100.0100 ####[facility] [address] [place], [address] COVID 19 AG RAPID (CLEMENCIA Quinn)on 11-19-2024 SARS-CoV-2 (COVID-19) RNA MADAN+probe Ql (Unsp spec) Normal [facility] Comment on above: Performed By: #### M 100.505 ####[facility] [address] [place], [address] COVID-19 virus antigen assay Ordered By: Mitch Mcwilliams on 11-19-2024 SARS-CoV-2 (COVID-19) Ag IA.rapid Ql (Resp) [facility] Respiratory pathogens detect ion panel by molecular detection methodOrdered By: Mitch Mcwilliams on 11-19-2024 Respiratory pathogens DNA and RNA panel MADAN+probe (Resp) [facility] Bedside Glucoseon 11-18-2024 FINGERSTICK GLU 121 mg/dL High 74-106 [facility] Comment on above: Result Comment: NITISH GEMENT OF PATIENT CARE PER NURSING PROTOCOL Performed By: #### L 501.080 ####[facility] [address] [place], [address] FINGERSTICK GLU 101 mg/dL Normal 74-106 [facility] Comment on above: Result Comment: NITISH GEMENT OF PATIENT CARE PER NURSING PROTOCOL Performed By: #### L 501.080 ####[facility] [address] [place], [address] Bedside Glucoseon 11-17-2024 FINGERSTICK GLU 108 mg/dL High 74-106 [facility] Comment on above: Result Comment: NITISH GEMENT OF PATIENT CARE PER NURSING PROTOCOL Performed By: #### L 501.080 ####[facility] [address] [place], [address] FINGERSTICK GLU 99 mg/dL Normal 74-106 [facility] Comment on above: Result Comment: NITISH GEMENT OF PATIENT CARE PER NURSING PROTOCOL Performed By: #### L 501.080 ####[facility] [address] [place], [address] Bedside Glucoseon 11-16-2024 FINGERSTICK GLU 101 mg/dL Normal 74-106 [facility] Comment on above: Result Comment: NITISH GEMENT OF PATIENT CARE PER NURSING PROTOCOL Performed By: #### L 501.080 ####[facility] [address] [place], [address] FINGERSTICK GLU 128 mg/dL High 74-106 [facility] Comment on above: Result Comment: NITISH GEMENT OF PATIENT CARE PER NURSING PROTOCOL Performed By: #### L 501.080 ####[facility] [address] [place], [address] Culture, Blood (WB)on 2024 CUB Normal [facility] Comment on above: Performed By: #### M 200.1000 ####[facility] [address] [place], [address] Basic Metabolic Profile (BMP )on 11-15-2024 BUN/CRE 17.8 RATIO Normal 10-20 [facility] Comment on above: Performed By: #### L 500.2500, L100.0100 ####[facility] [address] [place], [address] Calcium [Mass/Vol] 8.9 mg/dL Normal 7.6-11.0 [facility] Comment on above: Performed By: #### L 500.2500, L100.0100 ####[facility] [address] [place], [address] Chloride [Moles/Vol] 102 mmol/L Normal 98-108 [facility] Comment on above: Performed By: #### L 500.2500, L100.0100 ####[facility] [address] [place], [address] CO2 [Moles/Vol] 22.6 mmol/L Normal 21.0-32.0 [facility] Comment on above: Performed By: #### L 500.2500, L100.0100 ####[facility] [address] [place], [address] Creatinine [Mass/Vol] 1.29 mg/dL High 0.70-1.20 [facility] Comment on above: Performed By: #### L 500.2500, L100.0100 ####[facility] [address] [place], [address] ECRCL 55.95 ml/min Normal 50-250 [facility] Comment on above: Performed By: #### L 500.2500, L100.0100 ####[facility] [address] [place], [address] GAP 14 Normal 5-15 [facility] Comment on above: Performed By: #### L 500.2500, L100.0100 ####[facility] [address] [place], [address] GFR/1.73 sq M.predicted among non-blacks MDRD (S/P/Bld) [Vol rate/Area] 57 mL/min/{1.73_m2} Low >60 [facility] Comment on above: Result Comment: mL/m in/1.73m2 CKD-EPI Creatinine Equation (2020) Performed By: #### L 500.2500, L100.0100 ####[facility] [address] [place], [address] Glucose [Mass/Vol] 114 mg/dL High 70-99 [facility] Comment on above: Performed By: #### L 500.2500, L100.0100 ####[facility] [address] [place], [address] Potassium [Moles/Vol] 4.3 mmol/L Normal 3.3-5.1 [facility] Comment on above: Performed By: #### L 500.2500, L100.0100 ####[facility] [address] [place], [address] Sodium [Moles/Vol] 139 mmol/L Normal 133-145 [facility] Comment on above: Performed By: #### L 500.2500, L100.0100 ####[facility] [address] [place], [address] Urea nitrogen [Mass/Vol] 23 mg/dL High 4-19 [facility] Comment on above: Performed By: #### L 500.2500, L100.0100 ####[facility] [address] [place], [address] Bedside Glucoseon 11-15-2024 FINGERSTICK GLU 111 mg/dL High 74-106 [facility] Comment on above: Result Comment: NITISH GEMENT OF PATIENT CARE PER NURSING PROTOCOL Performed By: #### L 501.080 ####[facility] [address] [place], [address] FINGERSTICK GLU 106 mg/dL Normal 74-106 [facility] Comment on above: Result Comment: NITISH GEMENT OF PATIENT CARE PER NURSING PROTOCOL Performed By: #### L 501.080 ####[facility] [address] [place], [address] Blood manual differential co mment interpretation (narrative result)Ordered By: Mitch Mcwilliams on 11-15-2024 Manual differential comment Ariel (Bld) [Interp] SCANNED [facility] Comment on above: MONOCYTOSIS NOTED CBC W/Diff, Automatedon 11-06 CBC W Auto Differential panel (Bld) Normal [facility] Comment on above: Performed By: #### L 500.2500, L100.0100 ####[facility] [address] [place], [address] Review by pathologistOrdered By: Mitch Mcwilliams on 11-15-2024 Pathologist review Ariel (Unsp spec) [Interp] [employer] REPRESENTATIVE [facility] Comment on above: Previous reported re sult: Juliette vargas Edited by: JADA on 11/15/24:0810 AMENDED REPORT 11/15/24 0810 PATH REV previously reported as: Juliette vargas Bedside Glucoseon 11-14-2024 FINGERSTICK GLU 97 mg/dL Normal 74-106 [facility] Comment on above: Result Comment: NITISH GEMENT OF PATIENT CARE PER NURSING PROTOCOL Performed By: #### L 501.080 ####[facility] [address] [place], [address] FINGERSTICK GLU 90 mg/dL Normal 74-106 [facility] Comment on above: Result Comment: NITISH GEMENT OF PATIENT CARE PER NURSING PROTOCOL Performed By: #### L 501.080 ####[facility] [address] [place], [address] Calculi, Urinary w / Photoon 11-14-2024 2,8 Dihydroxyad TNP Normal . [facility] Comment on above: Performed By: #### L 3650.0100 ####[facility] [address] [place], [address] AMM ACID URATE TNP Normal . [facility] Comment on above: Performed By: #### L 3650.0100 ####[facility] [address] [place], [address] Bilirubin Ql (U) TNP Normal . [facility] Comment on above: Performed By: #### L 0.0100 ####[facility] [address] [place], [address] CA BILIRUBINATE TNP Normal . [facility] Comment on above: Performed By: #### L 0.0100 ####[facility] [address] [place], [address] CA CARBONATE TNP Normal . [facility] Comment on above: Performed By: #### L 0.0100 ####[facility] [address] [place], [address] CA HYDROG PHOS TNP Normal . [facility] Comment on above: Performed By: #### L 0.0100 ####[facility] [address] [place], [address] CA OXAL DIHYDR TNP Normal . [facility] Comment on above: Performed By: #### L 0.0100 ####[facility] [address] [place], [address] CA OXAL MONOHYD 10 Normal . [facility] Comment on above: Performed By: #### L 0.0100 ####[facility] [address] [place], [address] CA Palmitate TNP Normal . [facility] Comment on above: Performed By: #### L 0.0100 ####[facility] [address] [place], [address] CA PHOS (hydro) TNP Normal . [facility] Comment on above: Performed By: #### L 0.0100 ####[facility] [address] [place], [address] CA PHOSPHATE TNP Normal . [facility] Comment on above: Performed By: #### L 3650.0100 ####[facility] [address] [place], [address] CA Stearate TNP Normal . [facility] Comment on above: Performed By: #### L 3650.0100 ####[facility] [address] [place], [address] CHOLESTEROL TNP Normal . [facility] Comment on above: Performed By: #### L 3650.0100 ####[facility] [address] [place], [address] Color (U) Esparza Normal . [facility] Comment on above: Performed By: #### L 3650.0100 ####[facility] [address] [place], [address] COMMENT TNP Normal . [facility] Comment on above: Performed By: #### L 3650.0100 ####[facility] [address] [place], [address] COMMENT Comment Normal . [facility] Comment on above: Result Comment: Calc ulus received wet. Wet calculi must be dried beforeanalysis, which delays reporting of results. Leaving calculiwet (such as water, saline, blood, urine) may lead tochanges in composition.Performed at: [address] [id number] Director: Belen Aguilar PhD, Phone: [phone] Performed By: #### L 3650.0100 ####[facility] [address] [place], [address] CYSTINE TNP Normal . [facility] Comment on above: Performed By: #### L 3650.0100 ####[facility] [address] [place], [address] Drug/Metabolite TNP Normal . [facility] Comment on above: Performed By: #### L 3650.0100 ####[facility] [address] [place], [address] MAG WHITNEY PHOS TNP Normal . [facility] Comment on above: Performed By: #### L 3650.0100 ####[facility] [address] [place], [address] NA ACID URATE TNP Normal . [facility] Comment on above: Performed By: #### L 3650.0100 ####[facility] [address] [place], [address] NEWBERYITE TNP Normal . [facility] Comment on above: Performed By: #### L 0.0100 ####[facility] [address] [place], [address] Other Component TNP Normal . [facility] Comment on above: Performed By: #### L 0.0100 ####[facility] [address] [place], [address] SIZE 2x2 Normal . [facility] Comment on above: Result Comment: Mult iple pieces received. Dimensions of the largest piecereported. Performed By: #### L 3650.0100 ####[facility] [address] [place], [address] SOURCE Ureter Normal . [facility] Comment on above: Performed By: #### L 0.0100 ####[facility] [address] [place], [address] TRIAMTERENE TNP Normal . [facility] Comment on above: Performed By: #### L 0.0100 ####[facility] [address] [place], [address] URIC ACID 90 Normal . [facility] Comment on above: Performed By: #### L 3650.0100 ####[facility] [address] [place], [address] URIC ACID DIHYD TNP Normal . [facility] Comment on above: Performed By: #### L 3650.0100 ####[facility] [address] [place], [address] WEIGHT 16 mg Normal . [facility] Comment on above: Performed By: #### L 3650.0100 ####[facility] [address] [place], [address] XANTHINE TNP Normal . [facility] Comment on above: Performed By: #### L 3650.0100 ####[facility] [address] [place], [address] Bedside Glucoseon 11-13-2024 FINGERSTICK GLU 105 mg/dL Normal 74-106 [facility] Comment on above: Result Comment: NITISH GEMENT OF PATIENT CARE PER NURSING PROTOCOL Performed By: #### L 501.080 ####[facility] [address] [place], [address] FINGERSTICK GLU 103 mg/dL Normal 74-106 [facility] Comment on above: Result Comment: NITISH GEMENT OF PATIENT CARE PER NURSING PROTOCOL Performed By: #### L 501.080 ####[facility] [address] [place], [address] Bedside Glucoseon 11-12-2024 FINGERSTICK GLU 142 mg/dL High 74-106 [facility] Comment on above: Result Comment: NITISH GEMENT OF PATIENT CARE PER NURSING PROTOCOL Performed By: #### L 501.080 ####[facility] [address] [place], [address] FINGERSTICK GLU 106 mg/dL Normal 74-106 [facility] Comment on above: Result Comment: NITISH GEMENT OF PATIENT CARE PER NURSING PROTOCOL Performed By: #### L 501.080 ####[facility] [address] [place], [address] Bedside Glucoseon 11-11-2024 FINGERSTICK GLU 142 mg/dL High 74-106 [facility] Comment on above: Result Comment: NITISH GEMENT OF PATIENT CARE PER NURSING PROTOCOL Performed By: #### L 501.080 ####[facility] [address] [place], [address] FINGERSTICK GLU 109 mg/dL High 74-106 [facility] Comment on above: Result Comment: NITISH GEMENT OF PATIENT CARE PER NURSING PROTOCOL Performed By: #### L 501.080 ####[facility] [address] [place], [address] Bedside Glucoseon 11-10-2024 FINGERSTICK GLU 118 mg/dL High 74-106 [facility] Comment on above: Result Comment: NITISH GEMENT OF PATIENT CARE PER NURSING PROTOCOL Performed By: #### L 501.080 ####[facility] [address] [place], [address] FINGERSTICK GLU 120 mg/dL High 74-106 [facility] Comment on above: Result Comment: NITISH GEMENT OF PATIENT CARE PER NURSING PROTOCOL Performed By: #### L 501.080 ####[facility] [address] [place], [address] Bedside Glucoseon 11-09-2024 FINGERSTICK GLU 116 mg/dL High 74-106 [facility] Comment on above: Result Comment: NITISH GEMENT OF PATIENT CARE PER NURSING PROTOCOL Performed By: #### L 501.080 ####[facility] [address] [place], [address] FINGERSTICK GLU 99 mg/dL Normal 74-106 [facility] Comment on above: Result Comment: NITISH GEMENT OF PATIENT CARE PER NURSING PROTOCOL Performed By: #### L 501.080 ####[facility] [address] [place], [place], [address] Calculated very low density lipoprotein (VLDL) cholesterol measurementOrdered By: Mitch Mcwilliams on 11-09-2024 Calculated very low density lipoprotein (VLDL) cholesterol measurement 32 mg/dL 5-40 [facility] LDL calc ser/plasOrdered By: Mitch Mcwilliams on 11-09-2024 Cholesterol in LDL [Mass/Vol] 61 mg/dL [facility] Comment on above: Kqzhaspomp=781-707 m g/dL & Higher Avzj=206 mg/dL or greater Lipid Profileon 11-09-2024 CHOL:HDL 3.55 Normal [facility] Comment on above: Performed By: #### L 500.4100 ####[facility] [address] [facility] [place], [address] Cholesterol [Mass/Vol] 129 mg/dL Normal <=200 [facility] Comment on above: Result Comment: Chol esterol level, Desirable <200 mg/dLBorderline high cholesterol 200-239 mg/dLHigh cholesterol >=240 mg/dLRecommendations of the NCEP Adult Treatment Panel for thefollowing risk-cutoff thresholds for the [place] Americanpulation. Performed By: #### L 500.4100 ####[facility] [address] [facility] [place], [address] Cholesterol in HDL [Mass/Vol] 36 mg/dL Low [facility] Comment on above: Result Comment: Solange onal Cholesterol Education Program (NCEP) guidelines:<40 mg/dL: Low HDL-cholesterol (major risk factor for CHD)>= 60 mg/dL: High HDL-cholesterol (negative risk factor forCHD)HDL-cholesterol is affected by a number of factors, e.g.smoking, exercise, hormones, sex and age. Performed By: #### L 500.4100 ####[facility] [address] [facility] [place], [address] Cholesterol in LDL [Mass/Vol] 61 mg/dL Normal [facility] Comment on above: Result Comment: Bord rdwfiv=497-139 mg/dL Higher Ifvg=664 mg/dL or greater Performed By: #### L 500.4100 ####[facility] [address] [place], [place], [address] Cholesterol in VLDL [Mass/Vol] 32 mg/dL Normal 5-40 [facility] Comment on above: Performed By: #### L 500.4100 ####[facility] [address] [place], [address] Triglyceride [Mass/Vol] 160 mg/dL Normal [facility] Comment on above: Result Comment: The drugs N-Acetylcysteine and Metamizole may falselydepress this assay.Normal range: <150 mg/dLBorderline High: 150-199 mg/dLHigh: 200-499 mg/dLVery High: >500 mg/dL Performed By: #### L 500.4100 ####[facility] [address] [place], [place], [address] Screening total cholesterol/ high density lipoprotein (HDL) cholesterol ratioOrdered By: Mitch Mcwilliams on 11-09-2024 Cholesterol.total/Cholester ol in HDL [Mass ratio] 3.55 {ratio} [facility] Serum or plasma cholesterol in HDL measurement (mass/volume)Ordered By: Mitch Mcwilliams on 11-09-2024 Cholesterol in HDL [Mass/Vol] 36 mg/dL Low >40 [facility] Comment on above: National Cholesterol Education Program (NCEP) guidelines:<40 mg/dL: Low HDL-cholesterol (major risk factor for CHD)>= 60 mg/dL: High HDL-cholesterol (negative risk factor for CHD)HDL-cholesterol is affected by a number of factors, e.g. smoking, exercise, hormones, sex and age. Serum or plasma cholesterol measurement (mass/volume)Ordered By: Mitch Mcwilliams on 11-09-2024 Cholesterol [Mass/Vol] 129 mg/dL <201 [facility] Comment on above: Cholesterol level, D esirable <200 mg/dLBorderline high cholesterol 200-239 mg/dLHigh cholesterol >=240 mg/dLRecommendations of the NCEP Adult Treatment Panel for the following risk-cutoff thresholds for the [place] population. Triglycerides measurementOrd ered By: Mitch Mcwilliams on 11-09-2024 Triglyceride [Mass/Vol] 160 mg/dL <[address] [facility] Comment on above: The drugs N-Acetylcy steine and Metamizole may falsely depress this assay. Normal range: <150 mg/dLBorderline High: 150-199 mg/dLHigh: 200-499 mg/dLVery High: >500 mg/dL Basic Metabolic Profile (BMP )on 11-08-2024 BUN/CRE 18.8 RATIO Normal 10-20 [facility] Comment on above: Performed By: #### L 500.2500 ####[facility] [address] [place], [address] Calcium [Mass/Vol] 8.6 mg/dL Normal 7.6-11.0 [facility] Comment on above: Performed By: #### L 500.2500 ####[facility] [address] [place], [address] Chloride [Moles/Vol] 107 mmol/L Normal 98-108 [facility] Comment on above: Performed By: #### L 500.2500 ####[facility] [address] [place], [address] CO2 [Moles/Vol] 17.2 mmol/L Low 21.0-32.0 [facility] Comment on above: Performed By: #### L 500.2500 ####[facility] [address] [place], [address] Creatinine [Mass/Vol] 1.48 mg/dL High 0.70-1.20 [facility] Comment on above: Performed By: #### L 500.2500 ####[facility] [address] [place], [address] ECRCL 49.26 ml/min Low 50-250 [facility] Comment on above: Performed By: #### L 500.2500 ####[facility] [address] [place], [address] GAP 14 Normal 5-15 [facility] Comment on above: Performed By: #### L 500.2500 ####[facility] [address] [place], [address] GFR/1.73 sq M.predicted among non-blacks MDRD (S/P/Bld) [Vol rate/Area] 49 mL/min/{1.73_m2} Low >60 [facility] Comment on above: Result Comment: mL/m in/1.73m2 CKD-EPI Creatinine Equation (2020) Performed By: #### L 500.2500 ####[facility] [address] [place], [address] Glucose [Mass/Vol] 113 mg/dL High 70-99 [facility] Comment on above: Performed By: #### L 500.2500 ####[facility] [address] [place], [address] Potassium [Moles/Vol] 3.8 mmol/L Normal 3.3-5.1 [facility] Comment on above: Performed By: #### L 500.2500 ####[facility] [address] [place], [address] Sodium [Moles/Vol] 138 mmol/L Normal 133-145 [facility] Comment on above: Performed By: #### L 500.2500 ####[facility] [address] [place], [address] Urea nitrogen [Mass/Vol] 28 mg/dL High 4-19 [facility] Comment on above: Performed By: #### L 500.2500 ####[facility] [address] [place], [address] Bedside Glucoseon 11-08-2024 FINGERSTICK GLU 155 mg/dL High 74-106 [facility] Comment on above: Result Comment: NITISH CASEY OF PATIENT CARE PER NURSING PROTOCOL Performed By: #### L 501.080 ####[facility] [address] [place], [address] FINGERSTICK GLU 107 mg/dL High 74-106 [facility] Comment on above: Result Comment: NITISH CASEY OF PATIENT CARE PER NURSING PROTOCOL Performed By: #### L 501.080 ####[facility] [address] [place], [address] CBC W/Diff, Automatedon 04-0 3-2024 Absolute Lymph 1.08 X10 3/uL Normal 0.83-4.51 [facility] Comment on above: Performed By: #### L 100.0100 ####[facility] [address] [place], [address] Absolute Neut 6.2 X10 3/uL Normal 2.0-7.7 [facility] Comment on above: Performed By: #### L 100.0100 ####[facility] [address] [place], [address] Basophils/100 WBC (Bld) 0.3 % Normal 0-[address] [facility] Comment on above: Performed By: #### L 100.0100 ####[facility] [address] [place], [address] Eosinophils/100 WBC (Bld) 0.8 % Normal 0-5 [facility] Comment on above: Performed By: #### L 100.0100 ####[facility] [address] [place], [address] Erythrocyte distribution width (RBC) [Ratio] 13.0 % Normal 11.6-14.6 [facility] Comment on above: Performed By: #### L 100.0100 ####[facility] [address] [place], [address] Hematocrit (Bld) [Volume fraction] 32.0 % Low 40-54 [facility] Comment on above: Performed By: #### L 100.0100 ####[facility] [address] [place], [address] Hemoglobin (Bld) [Mass/Vol] 10.7 g/dL Low 13.0-16. 5 [facility] Comment on above: Performed By: #### L 100.0100 ####[facility] [address] [place], [address] IG% 2.100 High 0.0-0.9 [facility] Comment on above: Result Comment: IG% - Immature Granulocytes (promyelocytes, myelocytes andmetamyelocytes) > 1% indicates that a LEFT SHIFT is Present. Performed By: #### L 100.0100 ####[facility] [address] [place], [address] Lymphocytes/100 WBC (Bld) 12.5 % Low 19-41 [facility] Comment on above: Performed By: #### L 100.0100 ####[facility] [address] [place], [address] MCH (RBC) [Entitic mass] 32.1 pg High 27.0-32.0 [facility] Comment on above: Performed By: #### L 100.0100 ####[facility] [address] [place], [address] MCHC (RBC) [Mass/Vol] 33.4 g/dL Normal 32-36 [facility] Comment on above: Performed By: #### L 100.0100 ####[facility] [address] [place], [address] MCV (RBC) [Entitic vol] 96.1 fL High 80-[address] [facility] Comment on above: Performed By: #### L 100.0100 ####[facility] [address] [place], [address] Monocytes/100 WBC (Bld) 12.0 % High 0-[address] [facility] Comment on above: Performed By: #### L 100.0100 ####[facility] [address] [place], [address] Neutrophils/100 WBC (Bld) 72.3 % High 47-70 [facility] Comment on above: Performed By: #### L 100.0100 ####[facility] [address] [place], [address] Nucleated RBC (Bld) [#/Vol] 0 10*3/uL Normal 0-5 [facility] Comment on above: Performed By: #### L 100.0100 ####[facility] [address] [place], [address] Platelet mean volume (Bld) [Entitic vol] 9.5 fL Normal 6.2-12.0 [facility] Comment on above: Performed By: #### L 100.0100 ####[facility] [address] [place], [address] Platelets (Bld) [#/Vol] 243 10*3/uL Normal 150-450 [facility] Comment on above: Performed By: #### L 100.0100 ####[facility] [address] [place], [address] RBC (Bld) [#/Vol] 3.33 10*6/uL Low 4.6-6.2 [facility] Comment on above: Performed By: #### L 100.0100 ####[facility] [address] [place], [address] RDW SD 46.3 fl High 35.1-43.9 [facility] Comment on above: Performed By: #### L 100.0100 ####[facility] [address] [place], [address] WBC (Bld) [#/Vol] 8.6 10*3/uL Normal 4.4-11.0 [facility] Comment on above: Performed By: #### L 100.0100 ####[facility] [address] [place], [address] Absolute lymphocyte countOrd ered By: Wellington Stone on 11-07-2024 Lymphocytes Auto (Unsp spec) [#/Vol] 0.77 10*3/uL Low 0.83-4.51 [facility] Absolute neutrophil countOrd ered By: Wellington Stone on 11-07-2024 Neutrophils (Bld) [#/Vol] 5.2 10*3/uL 2.0-7.7 [facility] Anion gap in Serum or Plasma Ordered By: Wellington Stone on 11-07-2024 Anion gap [Moles/Vol] 11 mmol/L 5-15 [facility] Automated lymphocyte count a s percentage of total leukocytesOrdered By: Wellington Stone on 11-07-2024 Lymphocytes/100 WBC Auto (Unsp spec) 10.7 % Low 19-41 [facility] BUN/creatinine ratioOrdered By: Wellingtonsly Stone on 11-07-2024 Urea nitrogen/Creatinine [Mass ratio] 19.3 mg/mg 10-20 [facility] Basic Metabolic Profile (BMP )on 11-07-2024 BUN/CRE 19.3 RATIO Normal 10-20 [facility] Comment on above: Performed By: #### L 100.0100, L500.2500 ####[facility] [address] [place], [address] Calcium [Mass/Vol] 7.9 mg/dL Normal 7.6-11.0 [facility] Comment on above: Performed By: #### L 100.0100, L500.2500 ####[facility] [address] [place], [address] Chloride [Moles/Vol] 105 mmol/L Normal 98-108 [facility] Comment on above: Performed By: #### L 100.0100, L500.2500 ####[facility] [address] [place], [address] CO2 [Moles/Vol] 17.4 mmol/L Low 21.0-32.0 [facility] Comment on above: Performed By: #### L 100.0100, L500.2500 ####[facility] [address] [place], [address] Creatinine [Mass/Vol] 1.61 mg/dL High 0.70-1.20 [facility] Comment on above: Performed By: #### L 100.0100, L500.2500 ####[facility] [address] [place], [address] ECRCL 44.60 ml/min Low 50-250 [facility] Comment on above: Performed By: #### L 100.0100, L500.2500 ####[facility] [address] [place], [address] GAP 11 Normal 5-15 [facility] Comment on above: Performed By: #### L 100.0100, L500.2500 ####[facility] [address] [place], [address] GFR/1.73 sq M.predicted among non-blacks MDRD (S/P/Bld) [Vol rate/Area] 44 mL/min/{1.73_m2} Low >60 [facility] Comment on above: Result Comment: mL/m in/1.73m2 CKD-EPI Creatinine Equation (2020) Performed By: #### L 100.0100, L500.2500 ####[facility] [address] [place], [address] Glucose [Mass/Vol] 116 mg/dL High 70-99 [facility] Comment on above: Performed By: #### L 100.0100, L500.2500 ####[facility] [address] [place], [address] Potassium [Moles/Vol] 3.6 mmol/L Normal 3.3-5.1 [facility] Comment on above: Performed By: #### L 100.0100, L500.2500 ####[facility] [address] [place], [address] Sodium [Moles/Vol] 133 mmol/L Normal 133-145 [facility] Comment on above: Performed By: #### L 100.0100, L500.2500 ####[facility] [address] [place], [address] Urea nitrogen [Mass/Vol] 31 mg/dL High 4-19 [facility] Comment on above: Performed By: #### L 100.0100, L500.2500 ####[facility] [address] [place], [address] Basophil percentageOrdered B y: Wellington Stone on 11-07-2024 Basophils/100 WBC (Bld) 0.1 % 0-[address] [facility] Bedside Glucoseon 11-07-2024 FINGERSTICK GLU 123 mg/dL High 74-106 [facility] Comment on above: Result Comment: NITISH GEMENT OF PATIENT CARE PER NURSING PROTOCOL Performed By: #### L 501.080 ####[facility] [address] [place], [address] FINGERSTICK GLU 139 mg/dL High 74-106 [facility] Comment on above: Result Comment: NITISH GEMENT OF PATIENT CARE PER NURSING PROTOCOL Performed By: #### L 501.080 ####[facility] [address] [place], [address] FINGERSTICK GLU 166 mg/dL High -106 [facility] Comment on above: Result Comment: NITISH GEMENT OF PATIENT CARE PER NURSING PROTOCOL Performed By: #### L 501.080 ####[facility] [address] [place], [address] FINGERSTICK GLU 274 mg/dL High 74-106 [facility] Comment on above: Result Comment: NITISH GEMENT OF PATIENT CARE PER NURSING PROTOCOL Performed By: #### L 501.080 ####[facility] [address] [place], [address] FINGERSTICK GLU 131 mg/dL High 74-106 [facility] Comment on above: Result Comment: NITISH GEMENT OF PATIENT CARE PER NURSING PROTOCOL Performed By: #### L 501.080 ####[facility] [address] [place], [address] FINGERSTICK GLU 104 mg/dL Normal 74-106 [facility] Comment on above: Result Comment: NITISH GEMENT OF PATIENT CARE PER NURSING PROTOCOL Performed By: #### L 501.080 ####[facility] [address] [place], [address] CBC W/Diff, Automatedon 04-0 2-2024 Absolute Lymph 0.77 X10 3/uL Low 0.83-4.51 [facility] Comment on above: Performed By: #### L 100.0100, L500.2500 ####[facility] [address] [place], [address] Absolute Neut 5.2 X10 3/uL Normal 2.0-7.7 [facility] Comment on above: Performed By: #### L 100.0100, L500.2500 ####[facility] [address] [place], [address] Basophils/100 WBC (Bld) 0.1 % Normal 0-[address] [facility] Comment on above: Performed By: #### L 100.0100, L500.2500 ####[facility] [address] [place], [address] Eosinophils/100 WBC (Bld) 0.4 % Normal 0-5 [facility] Comment on above: Performed By: #### L 100.0100, L500.2500 ####[facility] [address] [place], [address] Erythrocyte distribution width (RBC) [Ratio] 12.9 % Normal 11.6-14.6 [facility] Comment on above: Performed By: #### L 100.0100, L500.2500 ####[facility] [address] [place], [address] Hematocrit (Bld) [Volume fraction] 28.2 % Low 40-54 [facility] Comment on above: Performed By: #### L 100.0100, L500.2500 ####[facility] [address] [place], [address] Hemoglobin (Bld) [Mass/Vol] 9.5 g/dL Low 13.0-16. 5 [facility] Comment on above: Performed By: #### L 100.0100, L500.2500 ####[facility] [address] [place], [address] IG% 1.700 High 0.0-0.9 [facility] Comment on above: Result Comment: IG% - Immature Granulocytes (promyelocytes, myelocytes andmetamyelocytes) > 1% indicates that a LEFT SHIFT is Present. Performed By: #### L 100.0100, L500.2500 ####[facility] [address] [place], [address] Lymphocytes/100 WBC (Bld) 10.7 % Low 19-41 [facility] Comment on above: Performed By: #### L 100.0100, L500.2500 ####[facility] [address] [place], [address] MCH (RBC) [Entitic mass] 32.2 pg High 27.0-32.0 [facility] Comment on above: Performed By: #### L 100.0100, L500.2500 ####[facility] [address] [place], [address] MCHC (RBC) [Mass/Vol] 33.7 g/dL Normal 32-36 [facility] Comment on above: Performed By: #### L 100.0100, L500.2500 ####[facility] [address] [place], [address] MCV (RBC) [Entitic vol] 95.6 fL High 80-[address] [facility] Comment on above: Performed By: #### L 100.0100, L500.2500 ####[facility] [address] [place], [address] Monocytes/100 WBC (Bld) 14.4 % High 0-[address] [facility] Comment on above: Performed By: #### L 100.0100, L500.2500 ####[facility] [address] [place], [address] Neutrophils/100 WBC (Bld) 72.7 % High 47-70 [facility] Comment on above: Performed By: #### L 100.0100, L500.2500 ####[facility] [address] [place], [address] Nucleated RBC (Bld) [#/Vol] 0.3 10*3/uL Normal 0-5 [facility] Comment on above: Performed By: #### L 100.0100, L500.2500 ####[facility] [address] [place], [address] Platelet mean volume (Bld) [Entitic vol] 9.9 fL Normal 6.2-12.0 [facility] Comment on above: Performed By: #### L 100.0100, L500.2500 ####[facility] [address] [place], [address] Platelets (Bld) [#/Vol] 188 10*3/uL Normal 150-450 [facility] Comment on above: Performed By: #### L 100.0100, L500.2500 ####[facility] [address] [place], [address] RBC (Bld) [#/Vol] 2.95 10*6/uL Low 4.6-6.2 [facility] Comment on above: Performed By: #### L 100.0100, L500.2500 ####[facility] [address] [place], [address] RDW SD 44.4 fl High 35.1-43.9 [facility] Comment on above: Performed By: #### L 100.0100, L500.2500 ####[facility] [address] [place], [address] WBC (Bld) [#/Vol] 7.2 10*3/uL Normal 4.4-11.0 [facility] Comment on above: Performed By: #### L 100.0100, L500.2500 ####[facility] [address] [place], [address] CPK Total, Creatine Kinaseon 11-07-2024 CPK TOTAL 612 U/L High 24-195 [facility] Comment on above: Performed By: #### L 501.3620 ####[facility] [address] [place], [address] Carbon dioxide, total [Moles /volume] in Central venous bloodOrdered By: Wellington Stone on 11-07-2024 CO2 [Moles/Vol] 17.4 mmol/L Low 21.0-32.0 [facility] Chloride assayOrdered By: Tessie Stone on 11-07-2024 Chloride [Moles/Vol] 105 mmol/L 98-108 [facility] Eosinophil percentageOrdered By: Wellington Stone on 11-07-2024 Eosinophils/100 WBC (Bld) 0.4 % 0-5 [facility] Erythrocyte distribution wid th (RBC) [Ratio]Ordered By: Wellington Stone on 11-07-2024 Erythrocyte distribution width (RBC) [Entitic vol] 44.4 fL High 35.1-43.9 [facility] Erythrocyte distribution wid th ratioOrdered By: Wellington Stone on 11-07-2024 Erythrocyte distribution width (RBC) [Ratio] 12.9 % 11.6-14.6 [facility] Erythrocyte distribution wid th standard deviationOrdered By: Wellington Stone on 11-07-2024 Erythrocyte distribution width (RBC) [Ratio] 44.4 fl High 35.1-43.9 [facility] Estimation of creatinine florentino aranceOrdered By: Wellington Stone on 11-07-2024 Estimated Creatinine Clearance Calc 44.60 ml/min Low 50-250 [facility] GFR/1.73 sq M.predicted kristen g non-blacks MDRD (S/P/Bld) [Vol rate/Area]Ordered By: Wellington Stone on 11-07-2024 Estimated GFR (MDRD) Non-Af Amer 44 Low >60 [facility] Comment on above: mL/min/1.73m2 CKD-EP I Creatinine Equation (2020) Glomerular filtration rate ( GFR) estimation/1.73 sq m using serum, plasma, or whole bOrdered By: Wellington Stone on 11-07-2024 GFR/1.73 sq M.predicted among non-blacks MDRD (S/P/Bld) [Vol rate/Area] 44 mL/min/{1.73_m2} Low >60 [facility] Comment on above: mL/min/1.73m2 CKD-EP I Creatinine Equation (2020) [facility] deOrdered By: Wellington Stone on 11-07-2024 Bedside Glucose (Misc Panel) 139 mg/dL High 74-106 [facility] Comment on above: MANAGEMENT OF PATIEN T CARE PER NURSING PROTOCOL Glucose [Mass/Vol] 139 mg/dL High 74-106 [facility] Comment on above: MANAGEMENT OF PATIEN T CARE PER NURSING PROTOCOL Hematocrit Auto (Bld) [Volum e fraction]Ordered By: Wellington Stone on 11-07-2024 Hematocrit (Bld) [Volume fraction] 28.2 % Low 40-54 [facility] Hemoglobin measurementOrdere d By: Wellington Stone on 11-07-2024 Hemoglobin (Bld) [Mass/Vol] 9.5 g/dL Low 13.0-16. 5 [facility] Immature granulocytes/100 WB C Auto (Bld)Ordered By: Wellington Stone on 11-07-2024 Immature granulocytes/100 WBC (Bld) 1.700 % High 0.0-0.9 [facility] Comment on above: IG% - Immature Granu locytes (promyelocytes, myelocytes and metamyelocytes) > 1% indicates that a LEFT SHIFT is Present. Lymphocytes Auto (Unsp spec) [#/Vol]Ordered By: Wellington Stone on 11-07-2024 Lymphocytes (Bld) [#/Vol] 0.77 10*3/uL Low 0.83-4.5 1 [facility] Lymphocytes/100 WBC Auto (Un sp spec)Ordered By: Wellington Stone on 11-07-2024 Lymphocytes/100 WBC (Bld) 10.7 % Low 19-41 [facility] MCV (mean corpuscular volume ) determinationOrdered By: Wellington Stone on 11-07-2024 MCV (RBC) [Entitic vol] 95.6 fL High 80-[address] [facility] Mean corpuscular hemoglobin (MCH) determinationOrdered By: Wellington Stone on 11-07-2024 MCH (RBC) [Entitic mass] 32.2 pg High 27.0-32.0 [facility] Mean corpuscular hemoglobin concentration (MCHC) determinationOrdered By: Wellington Stone on 11-07-2024 MCHC (RBC) [Mass/Vol] 33.7 g/dL 32-36 [facility] Mean platelet volume determi nationOrdered By: Wellington Stone on 11-07-2024 Platelet mean volume (Bld) [Entitic vol] 9.9 fL 6.2-12.0 [facility] Monocyte percentageOrdered B y: Wellington Stone on 11-07-2024 Monocytes/100 WBC (Bld) 14.4 % High 0-[address] [facility] Neutrophil percentageOrdered By: Wellington Stone on 11-07-2024 Neutrophils/100 WBC (Bld) 72.7 % High 47-70 [facility] Nucleated red blood cell per centageOrdered By: Wellington Stone on 11-07-2024 Nucleated RBC/100 WBC (Bld) [Ratio] 0.3 % 0-5 [facility] Platelet countOrdered By: Tessie Stone on 11-07-2024 Platelets (Bld) [#/Vol] 188 10*3/uL 150-450 [facility] Potassium (Unsp spec) [Mass/ Vol]Ordered By: Wellington Stone on 11-07-2024 Potassium [Moles/Vol] 3.6 mmol/L 3.3-5.1 [facility] Potassium measurement (mass/ volume)Ordered By: Wellington Stone on 11-07-2024 Potassium (Unsp spec) [Mass/Vol] 3.6 mmol/L 3.3-5.1 [facility] RBC Auto (Bld) [#/Vol]Ordere d By: Wellington Stone on 11-07-2024 RBC (Bld) [#/Vol] 2.95 10*6/uL Low 4.6-6.2 [facility] Serum creatinine measurement (mass/volume)Ordered By: Wellington Stone on 11-07-2024 Creatinine [Mass/Vol] 1.61 mg/dL High 0.70-1.20 [facility] Serum glucose measurement (m ass/volume)Ordered By: Wellington Stone on 11-07-2024 Glucose [Mass/Vol] 116 mg/dL High 70-99 [facility] Serum or plasma calcium yin urement (mass/volume)Ordered By: Wellington Stone on 11-07-2024 Calcium [Mass/Vol] 7.9 mg/dL 7.6-11.0 [facility] Serum or plasma creatine kin ase activityOrdered By: Wellington Stone on 11-07-2024 CK [Catalytic activity/Vol] 612 U/L High 24-195 [facility] Serum or plasma urea nitroge n measurement (mass/volume)Ordered By: Wellington Stone on 11-07-2024 Urea nitrogen [Mass/Vol] 31 mg/dL High 4-19 [facility] Sodium levelOrdered By: Raimundo Stone on 11-07-2024 Sodium [Moles/Vol] 133 mmol/L 133-145 [facility] Surgical pathology reportOrd ered By: Dione Almazan on 11-07-2024 Surgical pathology study [facility] Urine Cultureon 11-07-2024 URC If further studies are desired, please contact the Microbiology Laboratory within 48 hours. Urine Culture Urine Culture Burkholderia gladioli [place] Count 11,000-25,000 Normal [facility] Comment on above: Performed By: #### M 100.2200 ####[facility] [address] [place], [address] White blood cell (WBC) count Ordered By: Wellington Stone on 11-07-2024 WBC (Bld) [#/Vol] 7.2 10*3/uL 4.4-11.0 [facility] Basic Metabolic Profile (BMP )on 11-06-2024 BUN/CRE 21.1 RATIO High 10-20 [facility] Comment on above: Performed By: #### L 501.2300, L500.2500 ####[facility] [address] [place], [address] Calcium [Mass/Vol] 7.8 mg/dL Normal 7.6-11.0 [facility] Comment on above: Performed By: #### L 501.2300, L500.2500 ####[facility] [address] [place], [address] Chloride [Moles/Vol] 106 mmol/L Normal 98-108 [facility] Comment on above: Performed By: #### L 501.2300, L500.2500 ####[facility] [address] [place], [address] CO2 [Moles/Vol] 17.4 mmol/L Low 21.0-32.0 [facility] Comment on above: Performed By: #### L 501.2300, L500.2500 ####[facility] [address] [place], [address] Creatinine [Mass/Vol] 1.79 mg/dL High 0.70-1.20 [facility] Comment on above: Performed By: #### L 501.2300, L500.2500 ####[facility] [address] [place], [address] ECRCL 39.98 ml/min Low 50-250 [facility] Comment on above: Performed By: #### L 501.2300, L500.2500 ####[facility] [address] [place], [address] GAP 12 Normal 5-15 [facility] Comment on above: Performed By: #### L 501.2300, L500.2500 ####[facility] [address] [place], [address] GFR/1.73 sq M.predicted among non-blacks MDRD (S/P/Bld) [Vol rate/Area] 39 mL/min/{1.73_m2} Low >60 [facility] Comment on above: Result Comment: mL/m in/1.73m2 CKD-EPI Creatinine Equation (2020) Performed By: #### L 501.2300, L500.2500 ####[facility] [address] [place], [address] Glucose [Mass/Vol] 125 mg/dL High 70-99 [facility] Comment on above: Performed By: #### L 501.2300, L500.2500 ####[facility] [address] [place], [address] Potassium [Moles/Vol] 4.0 mmol/L Normal 3.3-5.1 [facility] Comment on above: Performed By: #### L 501.2300, L500.2500 ####[facility] [address] [place], [address] Sodium [Moles/Vol] 135 mmol/L Normal 133-145 [facility] Comment on above: Performed By: #### L 501.2300, L500.2500 ####[facility] [address] [place], [address] Urea nitrogen [Mass/Vol] 38 mg/dL High 4-19 [facility] Comment on above: Performed By: #### L 501.2300, L500.2500 ####[facility] [address] [place], [address] Bedside Glucoseon 11-06-2024 FINGERSTICK GLU 134 mg/dL High 74-106 [facility] Comment on above: Result Comment: NITISH GEMENT OF PATIENT CARE PER NURSING PROTOCOL Performed By: #### L 501.080 ####[facility] [address] [place], [address] FINGERSTICK GLU 163 mg/dL High 74-106 [facility] Comment on above: Result Comment: NITISH GEMENT OF PATIENT CARE PER NURSING PROTOCOL Performed By: #### L 501.080 ####[facility] [address] [place], [address] FINGERSTICK GLU 109 mg/dL High 74-106 [facility] Comment on above: Result Comment: NITISH GEMENT OF PATIENT CARE PER NURSING PROTOCOL Performed By: #### L 501.080 ####[facility] [address] [place], [address] CBC W/Diff, Automatedon Absolute Lymph 0.70 X10 3/uL Low 0.83-4.51 [facility] Comment on above: Performed By: #### L 100.0100 ####[facility] [address] [place], [address] Absolute Neut 5.2 X10 3/uL Normal 2.0-7.7 [facility] Comment on above: Performed By: #### L 100.0100 ####[facility] [address] [place], [address] Basophils/100 WBC (Bld) 0.1 % Normal 0-[address] [facility] Comment on above: Performed By: #### L 100.0100 ####[facility] [address] [place], [address] Eosinophils/100 WBC (Bld) 0.1 % Normal 0-5 [facility] Comment on above: Performed By: #### L 100.0100 ####[facility] [address] [place], [address] Erythrocyte distribution width (RBC) [Ratio] 13.1 % Normal 11.6-14.6 [facility] Comment on above: Performed By: #### L 100.0100 ####[facility] [address] [place], [address] Hematocrit (Bld) [Volume fraction] 29.5 % Low 40-54 [facility] Comment on above: Performed By: #### L 100.0100 ####[facility] [address] [place], [address] Hemoglobin (Bld) [Mass/Vol] 9.7 g/dL Low 13.0-16. 5 [facility] Comment on above: Performed By: #### L 100.0100 ####[facility] [address] [place], [address] IG% 2.600 High 0.0-0.9 [facility] Comment on above: Result Comment: IG% - Immature Granulocytes (promyelocytes, myelocytes andmetamyelocytes) > 1% indicates that a LEFT SHIFT is Present. Performed By: #### L 100.0100 ####[facility] [address] [place], [address] Lymphocytes/100 WBC (Bld) 10.1 % Low 19-41 [facility] Comment on above: Performed By: #### L 100.0100 ####[facility] [address] [place], [address] MCH (RBC) [Entitic mass] 32.3 pg High 27.0-32.0 [facility] Comment on above: Performed By: #### L 100.0100 ####[facility] [address] [place], [address] MCHC (RBC) [Mass/Vol] 32.9 g/dL Normal 32-36 [facility] Comment on above: Performed By: #### L 100.0100 ####[facility] [address] [place], [address] MCV (RBC) [Entitic vol] 98.3 fL High 80-[address] [facility] Comment on above: Performed By: #### L 100.0100 ####[facility] [address] [place], [address] Monocytes/100 WBC (Bld) 12.4 % High 0-10 [facility] Comment on above: Performed By: #### L 100.0100 ####[facility] [address] [place], [address] Neutrophils/100 WBC (Bld) 74.7 % High 47-70 [facility] Comment on above: Performed By: #### L 100.0100 ####[facility] [address] [place], [address] Nucleated RBC (Bld) [#/Vol] 0 10*3/uL Normal 0-5 [facility] Comment on above: Performed By: #### L 100.0100 ####[facility] [address] [place], [address] Platelet mean volume (Bld) [Entitic vol] 9.9 fL Normal 6.2-12.0 [facility] Comment on above: Performed By: #### L 100.0100 ####[facility] [address] [place], [address] Platelets (Bld) [#/Vol] 172 10*3/uL Normal 150-450 [facility] Comment on above: Performed By: #### L 100.0100 ####[facility] [address] [place], [address] RBC (Bld) [#/Vol] 3.00 10*6/uL Low 4.6-6.2 [facility] Comment on above: Performed By: #### L 100.0100 ####[facility] [address] [place], [address] RDW SD 47.0 fl High 35.1-43.9 [facility] Comment on above: Performed By: #### L 100.0100 ####[facility] [address] [place], [address] WBC (Bld) [#/Vol] 6.9 10*3/uL Normal 4.4-11.0 [facility] Comment on above: Performed By: #### L 100.0100 ####[facility] [address] [place], [address] Electrocardiogram reportOrde red By: Hansel Juarez on 11-06-2024 EKG study [facility] Cardiovascular Services [address] [place] [address] 12 Lead EKG 11/04/24 1827 MR#: [id number] Acct: [id number] Name: AARON CHAPA Rep #:[id number] : 1950 74 From: Hansel Juarez MD Attending Dr: Dr. Wellington Stone MD Status: ADM IN Ordering Dr: Debbie Stout te: 11/04/24 Location: [facility] Sex: M C Admitted: 11/04/24 Test Reason : REPEAT Blood Pressure : */* mmHG Vent. Rate : 95 BPM Atrial Rate : 95 BPM P-R Int : 200 ms QRS Dur : 114 ms QT Int : 372 ms P-R-T Axes : * -3 -6 degrees QTcB Int : 467 ms Sinus rhythm with Premature supraventricular complexes and with occasional Premature ventricular complexes Right bundle branch block Inferior infarct , age undetermined Abnormal ECG Confirmed by HANSEL JUAREZ MD ([id number]), order editor MUSA BATISTA ([id number]) on 11/06/2024 8:26:10 AM Referred By: Confirmed By: HANSEL JUAREZ MD 11/06/24825 Date _ Hansel Juarez MD CC: Dr. Wellington Stone MD; Dr. Mitch Mcwilliams MD; CADY Baig ~ Signed [facility] Other Phone: EKG study [facility] Cardiovascular Services [address] [place] [address] 12 Lead EKG 11/04/24 1728 MR#: [id number] Acct: [id number] Name: AARON CHAPA Rep #:[id number] : 1950 74 From: Hansel Juarez MD Attending Dr: Dr. Wellington Stone MD Status: ADM IN Ordering Dr: Bryant Zavala DO Date: 5 Location: [facility] Sex: M C Admitted: 11/04/24 Test Reason : FALL Blood Pressure : */* mmHG Vent. Rate : 103 BPM Atrial Rate : * BPM P-R Int : * ms QRS Dur : 114 ms QT Int : 362 ms P-R-T Axes : * 0 -8 degrees QTcB Int : 474 ms Atrial fibrillation with rapid ventricular response Right bundle branch block Possible Inferior infarct , age undetermined Abnormal ECG Confirmed by HANSEL JUAREZ MD ([id number]), order editor MUSA BATISTA ([id number]) on 11/06/2024 8:26:25 AM Referred By: Confirmed By: HANSEL JUAREZ MD 11/06/24825 Date _ Hansel Juarez MD CC: Dr. Wellington Stone MD; Dr. Mitch Mcwilliams MD; Dr. Bryant Zavala DO ~ Signed [facility] Other Phone: Phosphoruson 11-06-2024 Phosphate [Mass/Vol] 2.4 mg/dL Low 2.7-4.5 [facility] Comment on above: Performed By: #### L 501.2300, L500.2500 ####[facility] [address] [place], [address] Serum phosphorus measurement Ordered By: Joel Lay on 11-06-2024 Phosphorus Level 2.4 mg/dL Low 2.7-4.5 [facility] Venous duplex ultrasound rep ortOrdered By: Abdias Thompson on 11-06-2024 US Vein [facility] [address] [place] [address] Venous Duplex US - Mitch Extrem 11/05/24 1534 MR#: [id number] Acct: [id number] Name: AARON CHAPA Rep #:[id number] : 1950 74 From: Abdias Orellana Attending Dr: Dr. Wellington Stone MD Status: ADM IN Ordering Dr: Joel Baldwin DO Date: 11/04/24 Location: [facility] Sex: M C Admitted: 11/04/24 Reason For Study Reason For Study: Elevated D-Dimer RIGHT LEFT GSV is normal. GSV is normal. CFV is compressible, spontaneous, phasic, competent CFV is compressible, spontaneous, phasic, competent, and demonstrates normal augmentation. and demonstrates normal augmentation. FV is compressible, spontaneous, phasic, competent FV is compressible, spontaneous, phasic, competent and demonstrates normal augmentation. and demonstrates normal augmentation. POP V is compressible, spontaneous, phasic, competent POP V is compressible, spontaneous, phasic, competent and demonstrates normal augmentation. and demonstrates normal augmentation. T/P Trunk is compressible. T/P Trunk is compressible. PTV is compressible. PTV is compressible. RT PerV is compressible. LT PerV is compressible. Procedure This is a venous duplex using B-mode, color flow and spectral Doppler. Exam performed portable in patient room. The study was technically difficult. A preliminary report was called and/or faxed to Sydnee KHANNA. VL/Venous Duplex US - Mitch Extrem Interpretation Summary Deep veins of the bilateral lower extremities are patent and compressible segmentally. There is no evidence of bilateral lower extremity deep vein thrombosis. The bilateral great saphenous veins appearpatent and compressible segmentally. Ordering Physician: Joel Baldwin Referring Physician: Mitch Mcwilliams Chi Performed By: Mary Gotti RDCS, RVT 11/06/24 1001 Date _ Abdias Thompson MD CC: Dr. Joel Baldwin DO; Dr. Wellington Stone MD; Dr. Mitch Mcwilliams MD ~ Date Dictated: 11/05/24 1534 Date Transcribed: 11/06/24 1002 Visual Specialist: Signed [facility] Work Phone: Ammonium urate crystals dete ction in stone by infrared spectroscopyOrdered By: Jose Manuel Pham on 11-05-2024 Ammonium urate crystals Infrared spectroscopy Ql (Stone) TNP [facility] Comment on above: Test not performed Bedside Glucoseon 11-05-2024 FINGERSTICK GLU 129 mg/dL High 74-106 [facility] Comment on above: Result Comment: NITISH GEMENT OF PATIENT CARE PER NURSING PROTOCOL Performed By: #### L 501.080 ####[facility] [address] [place], [address] FINGERSTICK GLU 99 mg/dL Normal 74-106 [facility] Comment on above: Result Comment: NITISH GEMENT OF PATIENT CARE PER NURSING PROTOCOL Performed By: #### L 501.080 ####[facility] [address] [place], [address] FINGERSTICK GLU 121 mg/dL High 74-106 [facility] Comment on above: Result Comment: NITISH CASEY OF PATIENT CARE PER NURSING PROTOCOL Performed By: #### L 501.080 ####[facility] [address] [place], [address] Bilirubin, totalOrdered By: Joel Lay on 11-05-2024 Bilirubin [Mass/Vol] 0.69 mg/dL 0.00-1.30 [facility] CBC W/Diff, Automatedon 10-08 Absolute Lymph 0.39 X10 3/uL Low 0.83-4.51 [facility] Comment on above: Performed By: #### L 501.3620, L500.4050, L500.4100, L501.2300, L100.0100 ####[facility] [address] [place], [address] Absolute Neut 6.3 X10 3/uL Normal 2.0-7.7 [facility] Comment on above: Performed By: #### L 501.3620, L500.4050, L500.4100, L501.2300, L100.0100 ####[facility] [address] [place], [address] Basophils/100 WBC (Bld) 0.1 % Normal 0-[address] [facility] Comment on above: Performed By: #### L 501.3620, L500.4050, L500.4100, L501.2300, L100.0100 ####[facility] [address] [place], [address] Eosinophils/100 WBC (Bld) 0.0 % Normal 0-5 [facility] Comment on above: Performed By: #### L 501.3620, L500.4050, L500.4100, L501.2300, L100.0100 ####[facility] [address] [place], [address] Erythrocyte distribution width (RBC) [Ratio] 13.0 % Normal 11.6-14.6 [facility] Comment on above: Performed By: #### L 501.3620, L500.4050, L500.4100, L501.2300, L100.0100 ####[facility] [address] [place], [address] Hematocrit (Bld) [Volume fraction] 33.4 % Low 40-54 [facility] Comment on above: Performed By: #### L 501.3620, L500.4050, L500.4100, L501.2300, L100.0100 ####[facility] [address] [place], [address] Hemoglobin (Bld) [Mass/Vol] 10.8 g/dL Low 13.0-16. 5 [facility] Comment on above: Performed By: #### L 501.3620, L500.4050, L500.4100, L501.2300, L100.0100 ####[facility] [address] [place], [address] IG% 1.400 High 0.0-0.9 [facility] Comment on above: Result Comment: IG% - Immature Granulocytes (promyelocytes, myelocytes andmetamyelocytes) > 1% indicates that a LEFT SHIFT is Present. Performed By: #### L 501.3620, L500.4050, L500.4100, L501.2300, L100.0100 ####[facility] [address] [place], [address] Lymphocytes/100 WBC (Bld) 5.3 % Low 19-41 [facility] Comment on above: Performed By: #### L 501.3620, L500.4050, L500.4100, L501.2300, L100.0100 ####[facility] [address] [place], [address] MCH (RBC) [Entitic mass] 31.9 pg Normal 27.0-32.0 [facility] Comment on above: Performed By: #### L 501.3620, L500.4050, L500.4100, L501.2300, L100.0100 ####[facility] [address] [place], [address] MCHC (RBC) [Mass/Vol] 32.3 g/dL Normal 32-36 [facility] Comment on above: Performed By: #### L 501.3620, L500.4050, L500.4100, L501.2300, L100.0100 ####[facility] [address] [place], [address] MCV (RBC) [Entitic vol] 98.5 fL High 80-94 [facility] Comment on above: Performed By: #### L 501.3620, L500.4050, L500.4100, L501.2300, L100.0100 ####[facility] [address] [place], [address] Monocytes/100 WBC (Bld) 7.7 % Normal 0-[address] [facility] Comment on above: Performed By: #### L 501.3620, L500.4050, L500.4100, L501.2300, L100.0100 ####[facility] [address] [place], [address] Neutrophils/100 WBC (Bld) 85.5 % High 47-70 [facility] Comment on above: Performed By: #### L 501.3620, L500.4050, L500.4100, L501.2300, L100.0100 ####[facility] [address] [place], [address] Nucleated RBC (Bld) [#/Vol] 0 10*3/uL Normal 0-5 [facility] Comment on above: Performed By: #### L 501.3620, L500.4050, L500.4100, L501.2300, L100.0100 ####[facility] [address] [place], [address] Platelet mean volume (Bld) [Entitic vol] 9.4 fL Normal 6.2-12.0 [facility] Comment on above: Performed By: #### L 501.3620, L500.4050, L500.4100, L501.2300, L100.0100 ####[facility] [address] [place], [address] Platelets (Bld) [#/Vol] 193 10*3/uL Normal 150-450 [facility] Comment on above: Performed By: #### L 501.3620, L500.4050, L500.4100, L501.2300, L100.0100 ####[facility] [address] [place], [address] RBC (Bld) [#/Vol] 3.39 10*6/uL Low 4.6-6.2 [facility] Comment on above: Performed By: #### L 501.3620, L500.4050, L500.4100, L501.2300, L100.0100 ####[facility] [address] [place], [address] RDW SD 46.2 fl High 35.1-43.9 [facility] Comment on above: Performed By: #### L 501.3620, L500.4050, L500.4100, L501.2300, L100.0100 ####[facility] [address] [place], [address] WBC (Bld) [#/Vol] 7.3 10*3/uL Normal 4.4-11.0 [facility] Comment on above: Performed By: #### L 501.3620, L500.4050, L500.4100, L501.2300, L100.0100 ####[facility] [address] [place], [address] CPK Total, Creatine Kinaseon 11-05-2024 CPK TOTAL 2794 U/L High 24-195 [facility] Comment on above: Performed By: #### L 501.3620, L500.4050, L500.4100, L501.2300, L100.0100 ####[facility] [address] [place], [address] Calcium hydrogen phosphate c rystals detection in stone by infrared spectroscopyOrdered By: Jose Manuel Pham on 11-05-2024 Calcium hydrogen phosphate crystals Infrared spectroscopy Ql (Stone) [facility] Comment on above: Test not performed Calcium oxalate dihydrate cr ystals detection in stone by infrared spectroscopyOrdered By: Jose Manuel Pham on 11-05-2024 Calcium oxalate dihydrate crystals Infrared spectroscopy Ql (Stone) [facility] Comment on above: Test not performed Calculated very low density lipoprotein (VLDL) cholesterol measurementOrdered By: Joel Lay on 11-05-2024 Calculated very low density lipoprotein (VLDL) cholesterol measurement 24 mg/dL 5-40 [facility] VLDL Cholesterol 24 mg/dL 5-40 [facility] Color of specimen determinat ionOrdered By: Jose Manuel Pham on 11-05-2024 Color (Unsp spec) Esparza . [facility] Comprehensive Metabolic Prof ilon 11-05-2024 Albumin [Mass/Vol] 3.3 g/dL Low 3.4-4.8 [facility] Comment on above: Performed By: #### L 501.3620, L500.4050, L500.4100, L501.2300, L100.0100 ####[facility] [address] [place], [address] Albumin/Globulin [Mass ratio] 1.3 {ratio} Normal 0.9-2.4 [facility] Comment on above: Performed By: #### L 501.3620, L500.4050, L500.4100, L501.2300, L100.0100 ####[facility] [address] [place], [address] ALK PHOS 49 U/L Normal 40-129 [facility] Comment on above: Performed By: #### L 501.3620, L500.4050, L500.4100, L501.2300, L100.0100 ####[facility] [address] [place], [address] ALT [Catalytic activity/Vol] 44 U/L Normal <=46 [facility] Comment on above: Performed By: #### L 501.3620, L500.4050, L500.4100, L501.2300, L100.0100 ####[facility] [address] [place], [address] AST [Catalytic activity/Vol] 130 U/L High <=37 [facility] Comment on above: Performed By: #### L 501.3620, L500.4050, L500.4100, L501.2300, L100.0100 ####[facility] [address] [place], [address] Bilirubin [Mass/Vol] 0.69 mg/dL Normal 0.00-1.30 [facility] Comment on above: Performed By: #### L 501.3620, L500.4050, L500.4100, L501.2300, L100.0100 ####[facility] [address] [place], [address] BUN/CRE 20.9 RATIO High 10-20 [facility] Comment on above: Performed By: #### L 501.3620, L500.4050, L500.4100, L501.2300, L100.0100 ####[facility] [address] [place], [address] Calcium [Mass/Vol] 8.1 mg/dL Normal 7.6-11.0 [facility] Comment on above: Performed By: #### L 501.3620, L500.4050, L500.4100, L501.2300, L100.0100 ####[facility] [address] [place], [address] Chloride [Moles/Vol] 107 mmol/L Normal 98-108 [facility] Comment on above: Performed By: #### L 501.3620, L500.4050, L500.4100, L501.2300, L100.0100 ####[facility] [address] [place], [address] CO2 [Moles/Vol] 17.2 mmol/L Low 21.0-32.0 [facility] Comment on above: Performed By: #### L 501.3620, L500.4050, L500.4100, L501.2300, L100.0100 ####[facility] [address] [place], [address] Creatinine [Mass/Vol] 1.79 mg/dL High 0.70-1.20 [facility] Comment on above: Performed By: #### L 501.3620, L500.4050, L500.4100, L501.2300, L100.0100 ####[facility] [address] [place], [address] ECRCL 40.12 ml/min Low 50-250 [facility] Comment on above: Performed By: #### L 501.3620, L500.4050, L500.4100, L501.2300, L100.0100 ####[facility] [address] [place], [address] GAP 12 Normal 5-15 [facility] Comment on above: Performed By: #### L 501.3620, L500.4050, L500.4100, L501.2300, L100.0100 ####[facility] [address] [place], [address] GFR/1.73 sq M.predicted among non-blacks MDRD (S/P/Bld) [Vol rate/Area] 39 mL/min/{1.73_m2} Low >60 [facility] Comment on above: Result Comment: mL/m in/1.73m2 CKD-EPI Creatinine Equation (2020) Performed By: #### L 501.3620, L500.4050, L500.4100, L501.2300, L100.0100 ####[facility] [address] [place], [address] Globulin (S) [Mass/Vol] 2.6 g/dL Normal 2.2-4.2 [facility] Comment on above: Performed By: #### L 501.3620, L500.4050, L500.4100, L501.2300, L100.0100 ####[facility] [address] [place], [address] Glucose [Mass/Vol] 119 mg/dL High 70-99 [facility] Comment on above: Performed By: #### L 501.3620, L500.4050, L500.4100, L501.2300, L100.0100 ####[facility] [address] [place], [address] Potassium [Moles/Vol] 4.9 mmol/L Normal 3.3-5.1 [facility] Comment on above: Performed By: #### L 501.3620, L500.4050, L500.4100, L501.2300, L100.0100 ####[facility] [address] [place], [address] Sodium [Moles/Vol] 136 mmol/L Normal 133-145 [facility] Comment on above: Performed By: #### L 501.3620, L500.4050, L500.4100, L501.2300, L100.0100 ####[facility] [address] [place], [address] T PROT 5.8 g/dL Low 5.9-8.4 [facility] Comment on above: Performed By: #### L 501.3620, L500.4050, L500.4100, L501.2300, L100.0100 ####[facility] [address] [place], [address] Urea nitrogen [Mass/Vol] 38 mg/dL High 4-19 [facility] Comment on above: Performed By: #### L 501.3620, L500.4050, L500.4100, L501.2300, L100.0100 ####[facility] [address] [place], [address] Consultation - Urologyon Consultation - Urology Normal [facility] Cystine measurementOrdered B y: Jose Manuel Pham on 11-05-2024 Cystine (Unsp spec) [Moles/Vol] TNP [facility] Comment on above: Test not performed Determination of volume of c alculusOrdered By: Jose Manuel Pham on 11-05-2024 Size (Stone) [Entitic vol] 2x2 mm . [facility] Comment on above: Multiple pieces rece ived. Dimensions of the largest piecereported. LDL calc ser/plasOrdered By: Joel Lay on 11-05-2024 Cholesterol in LDL [Mass/Vol] 38 mg/dL [facility] Comment on above: Dktqogttus=217-662 m g/dL & Higher Wgot=583 mg/dL or greater LDL Cholesterol, Calculated 38 mg/dL [facility] Comment on above: Sjuglhkuvc=726-033 m g/dL & Higher Hhmm=795 mg/dL or greater Laboratory - Chemistry and C hemistry - challengeOrdered By: Joel Lay on 11-05-2024 AST [Catalytic activity/Vol] 130 U/L High <38 [facility] Laboratory - Miscellaneous t estsOrdered By: Jose Manuel Pham on 11-05-2024 Service comment (Unsp spec) [Interp] TNP [facility] Comment on above: Test not performed Service comment (Unsp spec) [Interp] Comment . [facility] Comment on above: Calculus received we t. Wet calculi must be dried beforeanalysis, which delays reporting of results. Leaving calculiwet (such as water, saline, blood, urine) may lead tochanges in composition.Performed at: [facility] [id number] Director: Belen Aguilar PhD, Phone: [phone] Lipid Profileon 11-05-2024 CHOL:HDL 2.51 Normal [facility] Comment on above: Performed By: #### L 501.3620, L500.4050, L500.4100, L501.2300, L100.0100 ####[facility] [address] [place], [address] Cholesterol [Mass/Vol] 104 mg/dL Normal <=200 [facility] Comment on above: Result Comment: Chol esterol level, Desirable <200 mg/dLBorderline high cholesterol 200-239 mg/dLHigh cholesterol >=240 mg/dLRecommendations of the NCEP Adult Treatment Panel for thefollowing risk-cutoff thresholds for the [place] Americanpulation. Performed By: #### L 501.3620, L500.4050, L500.4100, L501.2300, L100.0100 ####[facility] [address] [place], [address] Cholesterol in HDL [Mass/Vol] 42 mg/dL Normal [facility] Comment on above: Result Comment: Solange onal Cholesterol Education Program (NCEP) guidelines:<40 mg/dL: Low HDL-cholesterol (major risk factor for CHD)>= 60 mg/dL: High HDL-cholesterol (negative risk factor forCHD)HDL-cholesterol is affected by a number of factors, e.g.smoking, exercise, hormones, sex and age. Performed By: #### L 501.3620, L500.4050, L500.4100, L501.2300, L100.0100 ####[facility] [address] [place], [address] Cholesterol in LDL [Mass/Vol] 38 mg/dL Normal [facility] Comment on above: Result Comment: Bord wtouth=609-124 mg/dL Higher Zofj=291 mg/dL or greater Performed By: #### L 501.3620, L500.4050, L500.4100, L501.2300, L100.0100 ####[facility] [address] [place], [address] Cholesterol in VLDL [Mass/Vol] 24 mg/dL Normal 5-40 [facility] Comment on above: Performed By: #### L 501.3620, L500.4050, L500.4100, L501.2300, L100.0100 ####[facility] [address] [place], [address] Triglyceride [Mass/Vol] 122 mg/dL Normal [facility] Comment on above: Result Comment: The drugs N-Acetylcysteine and Metamizole may falselydepress this assay.Normal range: <150 mg/dLBorderline High: 150-199 mg/dLHigh: 200-499 mg/dLVery High: >500 mg/dL Performed By: #### L 501.3620, L500.4050, L500.4100, L501.2300, L100.0100 ####[facility] [address] [place], [address] MR/POSTOP.ANEon 11-05-2024 MR/POSTOP.ANE Normal [facility] MR/RASIRLXC1ng 11-05-2024 MR/POSTOPAN2 Normal [facility] Measurement of weight of sto neOrdered By: Jose Manuel Pham on 11-05-2024 Weight (Stone) 16 mg . [facility] Newberyite crystals detectio n in stone by infrared spectroscopyOrdered By: Jose Manuel Pham on 11-05-2024 Newberyite crystals Infrared spectroscopy Ql (Stone) [facility] Comment on above: Test not performed No Panel InformationOrdered By: Jose Manuel Pham on 11-05-2024 Stone 2,8 Dihydroxyadenine [facility] Comment on above: Test not performed Stone Bilirubin [facility] Comment on above: Test not performed Stone Calcium Bilirubinate [facility] Comment on above: Test not performed Stone Calcium Carbonate [facility] Comment on above: Test not performed Stone Calcium Hydroxyl-Phosphate [facility] Comment on above: Test not performed Stone Calcium Oxalate Monohydrate 10 % . [facility] Stone Calcium Palmitate [facility] Comment on above: Test not performed Stone Calcium Phosphate Carbonate [facility] Comment on above: Test not performed Stone Calcium Stearate [facility] Comment on above: Test not performed Stone Drug or Metabolite [facility] Comment on above: Test not performed Stone Other Component(s) [facility] Comment on above: Test not performed Stone Xanthine [facility] Comment on above: Test not performed Operative Reporton Operative Report Normal [facility] Origin of StoneOrdered By: Teresa Pham on 11-05-2024 Origin Nom (Stone) Ureter . [facility] Phosphoruson 11-05-2024 Phosphate [Mass/Vol] 2.5 mg/dL Low 2.7-4.5 [facility] Comment on above: Performed By: #### L 501.3620, L500.4050, L500.4100, L501.2300, L100.0100 ####[facility] [address] [place], [place], [id number] Screening total cholesterol/ high density lipoprotein (HDL) cholesterol ratioOrdered By: Joel Lay on 11-05-2024 Cholesterol.total/Cholester ol in HDL [Mass ratio] 2.51 {ratio} [facility] Serum globulin measurementOr dered By: Joel Lay on 11-05-2024 Globulin (S) [Mass/Vol] 2.6 g/dL 2.2-4.[address] [facility] Serum or plasma alanine swanson otransferase (ALT) measurementOrdered By: Joel Lay on 11-05-2024 ALT [Catalytic activity/Vol] 44 U/L <47 [facility] Serum or plasma albumin yin urement (mass/volume)Ordered By: Joel Lay on 11-05-2024 Albumin [Mass/Vol] 3.3 g/dL Low 3.4-4.8 [facility] Serum or plasma albumin/glob ulin mass ratioOrdered By: Joel Lay on 11-05-2024 Albumin/Globulin [Mass ratio] 1.3 {ratio} 0.9-2.4 [facility] Serum or plasma alkaline cody sphatase measurementOrdered By: Joel Lay on 11-05-2024 ALP [Catalytic activity/Vol] 49 U/L 40-129 [facility] Serum or plasma cholesterol in HDL measurement (mass/volume)Ordered By: Joel Lay on 11-05-2024 Cholesterol in HDL [Mass/Vol] 42 mg/dL >40 [facility] Comment on above: National Cholesterol Education Program (NCEP) guidelines:<40 mg/dL: Low HDL-cholesterol (major risk factor for CHD)>= 60 mg/dL: High HDL-cholesterol (negative risk factor for CHD)HDL-cholesterol is affected by a number of factors, e.g. smoking, exercise, hormones, sex and age. Serum or plasma cholesterol measurement (mass/volume)Ordered By: Joel Lay on 11-05-2024 Cholesterol [Mass/Vol] 104 mg/dL <201 [facility] Comment on above: Cholesterol level, D esirable <200 mg/dLBorderline high cholesterol 200-239 mg/dLHigh cholesterol >=240 mg/dLRecommendations of the NCEP Adult Treatment Panel for the following risk-cutoff thresholds for the [place] population. Sodium urate crystals detect ion in stone by infrared spectroscopyOrdered By: Jose Manuel Pham on 11-05-2024 Sodium urate crystals Infrared spectroscopy Ql (Stone) TNP [facility] Comment on above: Test not performed Surgery Specimen Level Ion 0 3-31-2025 Surgery Specimen Level I Normal [facility] Comment on above: Performed By: #### P KEENA ####[facility] [address] [place], [address] Total proteinOrdered By: Zachary Lay on 11-05-2024 Protein [Mass/Vol] 5.8 g/dL Low 5.9-8.4 [facility] Triamterene crystals detecti on in stone by infrared spectroscopyOrdered By: Jose Manuel Pham on 11-05-2024 Triamterene crystals Infrared spectroscopy Ql (Stone) [facility] Comment on above: Test not performed Triglycerides measurementOrd ered By: Joel Lay on 11-05-2024 Triglyceride [Mass/Vol] 122 mg/dL <[address] [facility] Comment on above: The drugs N-Acetylcy steine and Metamizole may falsely depress this assay. Normal range: <150 mg/dLBorderline High: 150-199 mg/dLHigh: 200-499 mg/dLVery High: >500 mg/dL Triple phosphate crystals de tection in stone by infrared spectroscopyOrdered By: Jose Manuel Pham on 11-05-2024 Triple phosphate crystals Infrared spectroscopy Ql (Stone) [facility] Comment on above: Test not performed Uric acid crystals detection in stone by infrared spectroscopyOrdered By: Jose Manuel Pham on 11-05-2024 Urate crystals Infrared spectroscopy Ql (Stone) 90 % . [facility] Uric acid dihydrate crystals detection in stone by infrared spectroscopyOrdered By: Jose Manuel Pham on 11-05-2024 Urate dihydrate crystals Infrared spectroscopy Ql (Stone) [facility] Comment on above: Test not performed 12 Lead EKGon 11-04-2024 12 Lead EKG Normal [facility] 12 Lead EKG Normal [facility] Absolute neutrophil countOrd ered By: Debbie Stout on 11-04-2024 Neutrophils (Bld) [#/Vol] 9.8 10*3/uL High 2.0-7.7 [facility] Anion gap in Serum or Plasma Ordered By: Debbie Stout on 11-04-2024 Anion gap [Moles/Vol] 13 mmol/L 5-15 [facility] BUN/creatinine ratioOrdered By: Debbie Stout on 11-04-2024 Urea nitrogen/Creatinine [Mass ratio] 20.9 mg/mg High 10-20 [facility] Basophil percentageOrdered B y: Debbie Stout on 11-04-2024 Basophils/100 WBC (Bld) 0.1 % 0-[address] [facility] Bedside Glucoseon 11-04-2024 FINGERSTICK GLU 110 mg/dL High 74-106 [facility] Comment on above: Result Comment: NITISH CASEY OF PATIENT CARE PER NURSING PROTOCOL Performed By: #### L 501.080 ####[facility] [address] [place], [address] Bilirubin Test strip Ql (U)O rdered By: Debbie Stout on 11-04-2024 Bilirubin Ql (U) Negative Negative [facility] Bilirubin, totalOrdered By: Debbie Stout on 11-04-2024 Bilirubin [Mass/Vol] 0.98 mg/dL 0.00-1.30 [facility] Blood cultureOrdered By: Ishan Stout on 11-04-2024 Bacteria identified Cx Nom (Bld) No growth in 5 days. [facility] Bacteria identified Cx Nom (Bld) Burkholderia gladioli Abnormal [facility] Brain/Head without Contrasto n 11-04-2024 Brain/Head without Contrast Normal [facility] CBC W/Diff, Automatedon 10-08 Absolute Lymph 0.40 X10 3/uL Low 0.83-4.51 [facility] Comment on above: Performed By: #### L 100.0100, L500.4050, L501.2450 ####[facility] [address] [place], [address] Absolute Neut 9.8 X10 3/uL High 2.0-7.7 [facility] Comment on above: Performed By: #### L 100.0100, L500.4050, L501.2450 ####[facility] [address] [place], [address] Basophils/100 WBC (Bld) 0.1 % Normal 0-[address] [facility] Comment on above: Performed By: #### L 100.0100, L500.4050, L501.2450 ####[facility] [address] [place], [address] Eosinophils/100 WBC (Bld) 0.0 % Normal 0-5 [facility] Comment on above: Performed By: #### L 100.0100, L500.4050, L501.2450 ####[facility] [address] [place], [address] Erythrocyte distribution width (RBC) [Ratio] 12.7 % Normal 11.6-14.6 [facility] Comment on above: Performed By: #### L 100.0100, L500.4050, L501.2450 ####[facility] [address] [place], [address] Hematocrit (Bld) [Volume fraction] 33.5 % Low 40-54 [facility] Comment on above: Performed By: #### L 100.0100, L500.4050, L501.2450 ####[facility] [address] [place], [address] Hemoglobin (Bld) [Mass/Vol] 11.3 g/dL Low 13.0-16. 5 [facility] Comment on above: Performed By: #### L 100.0100, L500.4050, L501.2450 ####[facility] [address] [place], [address] IG% 0.700 Normal 0.0-0.9 [facility] Comment on above: Result Comment: IG% - Immature Granulocytes (promyelocytes, myelocytes andmetamyelocytes) > 1% indicates that a LEFT SHIFT is Present. Performed By: #### L 100.0100, L500.4050, L501.2450 ####[facility] [address] [place], [address] Lymphocytes/100 WBC (Bld) 3.6 % Low 19-41 [facility] Comment on above: Performed By: #### L 100.0100, L500.4050, L501.2450 ####[facility] [address] [place], [address] MCH (RBC) [Entitic mass] 32.7 pg High 27.0-32.0 [facility] Comment on above: Performed By: #### L 100.0100, L500.4050, L501.2450 ####[facility] [address] [place], [address] MCHC (RBC) [Mass/Vol] 33.7 g/dL Normal 32-36 [facility] Comment on above: Performed By: #### L 100.0100, L500.4050, L501.2450 ####[facility] [address] [place], [address] MCV (RBC) [Entitic vol] 96.8 fL High 80-[address] [facility] Comment on above: Performed By: #### L 100.0100, L500.4050, L501.2450 ####[facility] [address] [place], [address] Monocytes/100 WBC (Bld) 5.9 % Normal 0-10 [facility] Comment on above: Performed By: #### L 100.0100, L500.4050, L501.2450 ####[facility] [address] [place], [address] Neutrophils/100 WBC (Bld) 89.7 % High 47-70 [facility] Comment on above: Performed By: #### L 100.0100, L500.4050, L501.2450 ####[facility] [address] [place], [address] Nucleated RBC (Bld) [#/Vol] 0 10*3/uL Normal 0-5 [facility] Comment on above: Performed By: #### L 100.0100, L500.4050, L501.2450 ####[facility] [address] [place], [address] Platelet mean volume (Bld) [Entitic vol] 9.5 fL Normal 6.2-12.0 [facility] Comment on above: Performed By: #### L 100.0100, L500.4050, L501.2450 ####[facility] [address] [place], [address] Platelets (Bld) [#/Vol] 221 10*3/uL Normal 150-450 [facility] Comment on above: Performed By: #### L 100.0100, L500.4050, L501.2450 ####[facility] [address] [place], [address] RBC (Bld) [#/Vol] 3.46 10*6/uL Low 4.6-6.2 [facility] Comment on above: Performed By: #### L 100.0100, L500.4050, L501.2450 ####[facility] [address] [place], [address] RDW SD 44.0 fl High 35.1-43.9 [facility] Comment on above: Performed By: #### L 100.0100, L500.4050, L501.2450 ####[facility] [address] [place], [address] WBC (Bld) [#/Vol] 11.0 10*3/uL Normal 4.4-11.0 [facility] Comment on above: Performed By: #### L 100.0100, L500.4050, L501.2450 ####[facility] [address] [place], [address] CPK Total, Creatine Kinaseon 11-04-2024 CPK TOTAL 2755 U/L High 24-195 [facility] Comment on above: Performed By: #### L 501.3620 ####[facility] [address] [place], [address] CT Chest, Abd, Pelvis WO Con ton 11-04-2024 CT Chest, Abd, Pelvis WO Cont Normal [facility] CTA Chest W/WO Contraston CTA Chest W/WO Contrast Normal [facility] Carbon dioxide, total [Moles /volume] in Central venous bloodOrdered By: Debbie Stout on 11-04-2024 CO2 [Moles/Vol] 18.3 mmol/L Low 21.0-32.0 [facility] Chloride assayOrdered By: Massiel Stout on 11-04-2024 Chloride [Moles/Vol] 105 mmol/L 98-108 [facility] Comprehensive Metabolic Prof ilon 11-04-2024 Albumin [Mass/Vol] 3.6 g/dL Normal 3.4-4.8 [facility] Comment on above: Performed By: #### L 100.0100, L500.4050, L501.2450 ####[facility] [address] [place], [address] Albumin/Globulin [Mass ratio] 1.3 {ratio} Normal 0.9-2.4 [facility] Comment on above: Performed By: #### L 100.0100, L500.4050, L501.2450 ####[facility] [address] [place], [address] ALK PHOS 54 U/L Normal 40-129 [facility] Comment on above: Performed By: #### L 100.0100, L500.4050, L501.2450 ####[facility] [address] [place], [address] ALT [Catalytic activity/Vol] 35 U/L Normal <=46 [facility] Comment on above: Performed By: #### L 100.0100, L500.4050, L501.2450 ####[facility] [address] [place], [address] AST [Catalytic activity/Vol] 109 U/L High <=37 [facility] Comment on above: Performed By: #### L 100.0100, L500.4050, L501.2450 ####[facility] [address] [place], [address] Bilirubin [Mass/Vol] 0.98 mg/dL Normal 0.00-1.30 [facility] Comment on above: Performed By: #### L 100.0100, L500.4050, L501.2450 ####[facility] [address] [place], [address] BUN/CRE 20.9 RATIO High 10-20 [facility] Comment on above: Performed By: #### L 100.0100, L500.4050, L501.2450 ####[facility] [address] [place], [address] Calcium [Mass/Vol] 8.7 mg/dL Normal 7.6-11.0 [facility] Comment on above: Performed By: #### L 100.0100, L500.4050, L501.2450 ####[facility] [address] [place], [address] Chloride [Moles/Vol] 105 mmol/L Normal 98-108 [facility] Comment on above: Performed By: #### L 100.0100, L500.4050, L501.2450 ####[facility] [address] [place], [address] CO2 [Moles/Vol] 18.3 mmol/L Low 21.0-32.0 [facility] Comment on above: Performed By: #### L 100.0100, L500.4050, L501.2450 ####[facility] [address] [place], [address] Creatinine [Mass/Vol] 1.67 mg/dL High 0.70-1.20 [facility] Comment on above: Performed By: #### L 100.0100, L500.4050, L501.2450 ####[facility] [address] [place], [address] ECRCL 36.85 ml/min Low 50-250 [facility] Comment on above: Performed By: #### L 100.0100, L500.4050, L501.2450 ####[facility] [address] [place], [address] GAP 13 Normal 5-15 [facility] Comment on above: Performed By: #### L 100.0100, L500.4050, L501.2450 ####[facility] [address] [place], [address] GFR/1.73 sq M.predicted among non-blacks MDRD (S/P/Bld) [Vol rate/Area] 42 mL/min/{1.73_m2} Low >60 [facility] Comment on above: Result Comment: mL/m in/1.73m2 CKD-EPI Creatinine Equation (2020) Performed By: #### L 100.0100, L500.4050, L501.2450 ####[facility] [address] [place], [address] Globulin (S) [Mass/Vol] 2.8 g/dL Normal 2.2-4.2 [facility] Comment on above: Performed By: #### L 100.0100, L500.4050, L501.2450 ####[facility] [address] [place], [address] Glucose [Mass/Vol] 115 mg/dL High 70-99 [facility] Comment on above: Performed By: #### L 100.0100, L500.4050, L501.2450 ####[facility] [address] [place], [address] Potassium [Moles/Vol] 4.3 mmol/L Normal 3.3-5.1 [facility] Comment on above: Performed By: #### L 100.0100, L500.4050, L501.2450 ####[facility] [address] [place], [address] Sodium [Moles/Vol] 136 mmol/L Normal 133-145 [facility] Comment on above: Performed By: #### L 100.0100, L500.4050, L501.2450 ####[facility] [address] [place], [address] T PROT 6.5 g/dL Normal 5.9-8.4 [facility] Comment on above: Performed By: #### L 100.0100, L500.4050, L501.2450 ####[facility] [address] [place], [address] Urea nitrogen [Mass/Vol] 35 mg/dL High 4-19 [facility] Comment on above: Performed By: #### L 100.0100, L500.4050, L501.2450 ####[facility] [address] [place], [address] D-Dimer Quantitative (DVT/PE )on 11-04-2024 D-DIMER QUANT 3.60 FEU/ug/m Invalid Interpretation Code 0.27-0.49 [facility] Comment on above: Result Comment: D-Di dian ELEVATED (>0.49): Additional studies and clinicalassessments are indicated to conclude diagnosis of:Deep Vein Thrombosis (DVT) or Pulmonary Embolism (PE)CRITICAL VALUE CALLED TO [id number]/30/252226 Carmelita Atwood.RESULTS READ BACK BY SAME. Performed By: #### L 501.9985, L501.9520, L300.8000, L503.0106 ####[facility] [address] [place], [address] D-dimer measurement for deep venous thrombosisOrdered By: Joel Lay on 11-04-2024 D-Dimer Quantitative (PE/DVT) 3.60 FEU/ug/m High 0.27-0.49 [facility] Comment on above: D-Dimer ELEVATED (>0 .49): Additional studies and clinicalassessments are indicated to conclude diagnosis of:Deep Vein Thrombosis (DVT) or Pulmonary Embolism (PE)CRITICAL VALUE CALLED TO [id number]/30/252226 [facility] Atwood.RESULTS READ BACK BY SAME. Emergency Department Summary on 11-04-2024 Emergency Department Summary Normal [facility] Eosinophil percentageOrdered By: Debbie Stout on 11-04-2024 Eosinophils/100 WBC (Bld) 0.0 % 0-5 [facility] Epithelial cells.squamous LM Ql (Urine sed)Ordered By: Debbie Stout on 11-04-2024 Epithelial cells.squamous LM.HPF (Urine sed) [#/Area] 0 /[HPF] 0-5 [facility] Erythrocyte distribution wid th ratioOrdered By: Debbienicole Stout on 11-04-2024 Erythrocyte distribution width (RBC) [Ratio] 12.7 % 11.6-14.6 [facility] Erythrocyte distribution wid th standard deviationOrdered By: Debbie Stout on 11-04-2024 Erythrocyte distribution width (RBC) [Entitic vol] 44.0 fL High 35.1-43.9 [facility] Estimation of creatinine florentino aranceOrdered By: Debbie Stout on 11-04-2024 Estimated Creatinine Clearance Calc 36.85 ml/min Low 50-250 [facility] FOLATES,SERUM (FOLIC ACID)on 11-04-2024 FOLATES,SERUM 6.89 ng/mL Normal 4.60-34.80 [facility] Comment on above: Performed By: #### L 506.0200, L501.5200 ####[facility] [address] [place], [place], [address] Fine Granular Casts LM.LPF ( Urine sed) [#/Area]Ordered By: Debbie Stout on 11-04-2024 Urine Fine Granular Casts 0-5 SEEN /lpf 0-5 [facility] Folate [Moles/Vol]Ordered By : Joel Lay on 11-04-2024 Serum Folate 6.89 ng/mL 4.60-34.80 [facility] Folate [Moles/volume] in Ser um or PlasmaOrdered By: Joel Lay on 11-04-2024 Folate [Moles/Vol] 6.89 ng/mL 4.60-34.80 [facility] GFR/1.73 sq M.predicted kristen g non-blacks MDRD (S/P/Bld) [Vol rate/Area]Ordered By: Debbie Stout on 11-04-2024 Estimated GFR (MDRD) Non-Af Amer 42 Low >60 [facility] Comment on above: mL/min/1.73m2 CKD-EP I Creatinine Equation (2020) Glucose Ql (U)Ordered By: Massiel Stout on 11-04-2024 Urine Glucose (UA) Normal mg/dl Normal [facility] H AND P Exam - Hospitaliston 11-04-2024 H&P Exam - Hospitalist Normal [facility] HIP, UNI W/ Pelvis 2-3 Views on 11-04-2024 HIP, UNI W/ Pelvis 2-3 Views Normal [facility] Hematocrit Auto (Bld) [Volum e fraction]Ordered By: Debbie Stout on 11-04-2024 Hematocrit (Bld) [Volume fraction] 33.5 % Low 40-54 [facility] Hemoglobin A1con 11-04-2024 HbA1c (Bld) [Mass fraction] 6.6 % Normal <=5.6 [facility] Comment on above: Performed By: #### L 501.9985, L501.9520, L300.8000, L503.0106 ####[facility] [address] [place], [place], [id number] Hemoglobin A1c percentageOrd ered By: Joel Lay on 11-04-2024 HbA1c (Bld) [Mass fraction] 6.6 % >5.7 [facility] Hemoglobin measurementOrdere d By: Debbie Stout on 11-04-2024 Hemoglobin (Bld) [Mass/Vol] 11.3 g/dL Low 13.0-16. 5 [facility] Immature granulocytes/100 WB C Auto (Bld)Ordered By: Debbie Stout on 11-04-2024 Immature granulocytes/100 WBC (Bld) 0.700 % 0.0-0.9 [facility] Comment on above: IG% - Immature Granu locytes (promyelocytes, myelocytes and metamyelocytes) > 1% indicates that a LEFT SHIFT is Present. Ketones Test strip Ql (U)Ord ered By: Debbie Stout on 11-04-2024 Ketones Ql (U) Negative Negative [facility] L499.0042on 11-04-2024 Trop T High Sen Normal <=22 [facility] Comment on above: Result Comment: Raz lopez via OM: Ordered Performed By: #### L 499.0042 ####[facility] [address] [place], [address] L503.0106on 11-04-2024 Cobalamin (Vitamin B12) [Mass/Vol] 483 pg/mL Normal 180-914 [facility] Comment on above: Performed By: #### L 501.9985, L501.9520, L300.8000, L503.0106 ####[facility] [address] [place], [address] Laboratory - Chemistry and C hemistry - challengeOrdered By: Debbie Stout on 11-04-2024 AST [Catalytic activity/Vol] 109 U/L High <38 [facility] Lactic Acidon 11-04-2024 Lactate [Moles/Vol] 1.0 mmol/L Normal 0.0-2.0 [facility] Comment on above: Order Comment: Y Performed By: #### L 503.6005 ####[facility] [address] [place], [place], [address] Lactic acid measurementOrder ed By: Debbie Stout on 11-04-2024 Lactate [Moles/Vol] 1.0 mmol/L 0.0-2.0 [facility] Lipaseon 11-04-2024 Lipase [Catalytic activity/Vol] 14 U/L Normal 13-75 [facility] Comment on above: Result Comment: Andrew jarvis note:LIPASE revised reference range effective 22.New Lipase methodology. Expected to produce lower valuesthan the previous assay method.NEW Reference Range: 13 - 75 U/L Performed By: #### L 100.0100, L500.4050, L501.2450 ####[facility] [address] [place], [place], [address] Lipase measurementOrdered By : Debbie Stout on 11-04-2024 Lipase [Catalytic activity/Vol] 14 U/L 13-75 [facility] Comment on above: Please note:LIPASE r evised reference range effective 22. New Lipase methodology. Expected to produce lower values than the previous assay method. NEW Reference Range: 13 - 75 U/L Lymphocytes Auto (Unsp spec) [#/Vol]Ordered By: Debbie Stout on 11-04-2024 Lymphocytes (Bld) [#/Vol] 0.40 10*3/uL Low 0.83-4.5 1 [facility] Lymphocytes/100 WBC Auto (Un sp spec)Ordered By: Debbie Stout on 11-04-2024 Lymphocytes/100 WBC (Bld) 3.6 % Low 19-41 [facility] MCV (mean corpuscular volume ) determinationOrdered By: Debbie Stout on 11-04-2024 MCV (RBC) [Entitic vol] 96.8 fL High 80-[address] [facility] Magnesiumon 11-04-2024 Magnesium [Mass/Vol] 1.5 mg/dL Normal 1.5-2.2 [facility] Comment on above: Performed By: #### L 506.0200, L501.5200 ####[facility] [address] [place], [address] Magnesium (Unsp spec) [Mass/ Vol]Ordered By: Joel Lay on 11-04-2024 Magnesium [Mass/Vol] 1.5 mg/dL 1.5-2.2 [facility] Magnesium measurement (mass/ volume)Ordered By: Joel Lay on 11-04-2024 Magnesium (Unsp spec) [Mass/Vol] 1.5 mg/dL 1.5-2.2 [facility] Mean corpuscular hemoglobin (MCH) determinationOrdered By: Debbie Stout on 11-04-2024 MCH (RBC) [Entitic mass] 32.7 pg High 27.0-32.0 [facility] Mean corpuscular hemoglobin concentration (MCHC) determinationOrdered By: Debbie Stout on 11-04-2024 MCHC (RBC) [Mass/Vol] 33.7 g/dL 32-36 [facility] Mean platelet volume determi nationOrdered By: Debbie Stout on 11-04-2024 Platelet mean volume (Bld) [Entitic vol] 9.5 fL 6.2-12.0 [facility] Microscopic analysis of urin e for red blood cells (RBC)Ordered By: Debbie Stout on 11-04-2024 Microscopic analysis of urine for red blood cells (RBC) 10-25 SEEN /hpf 0-5 [facility] Urine RBC 10-25 SEEN /hpf 0-5 [facility] Monocyte percentageOrdered B y: Debbie Stout on 11-04-2024 Monocytes/100 WBC (Bld) 5.9 % 0-[address] [facility] Mucus LM Ql (Urine sed)Order ed By: Debbie Stout on 11-04-2024 Mucus Ql (Urine sed) 0 SEEN /hpf [facility] Neutrophil percentageOrdered By: Debbie Stout on 11-04-2024 Neutrophils/100 WBC (Bld) 89.7 % High 47-70 [facility] Nitrite Test strip Ql (U)Ord ered By: Debbie Stout on 11-04-2024 Nitrite Ql (U) Negative Negative [facility] Nucleated red blood cell per centageOrdered By: Debbie Stout on 11-04-2024 Nucleated RBC/100 WBC (Bld) [Ratio] 0 % 0-5 [facility] Platelet countOrdered By: Massiel Stout on 11-04-2024 Platelets (Bld) [#/Vol] 221 10*3/uL 150-450 [facility] Potassium (Unsp spec) [Mass/ Vol]Ordered By: Debbie Stout on 11-04-2024 Potassium [Moles/Vol] 4.3 mmol/L 3.3-5.1 [facility] Protein Test strip Ql (U)Ord ered By: Debbie Stout on 11-04-2024 Protein Ql (U) 100 mg/dl High Negative [facility] RBC Auto (Bld) [#/Vol]Ordere d By: Debbie Stout on 11-04-2024 RBC (Bld) [#/Vol] 3.46 10*6/uL Low 4.6-6.2 [facility] Serum creatinine measurement (mass/volume)Ordered By: Debbie Stout on 11-04-2024 Creatinine [Mass/Vol] 1.67 mg/dL High 0.70-1.20 [facility] Serum globulin measurementOr dered By: Debbie Stout on 11-04-2024 Globulin (S) [Mass/Vol] 2.8 g/dL 2.2-4.[address] [facility] Serum glucose measurement (m ass/volume)Ordered By: Debbie Stout on 11-04-2024 Glucose [Mass/Vol] 115 mg/dL High 70-99 [facility] Serum or plasma alanine swanson otransferase (ALT) measurementOrdered By: Debbie Stout on 11-04-2024 ALT [Catalytic activity/Vol] 35 U/L <47 [facility] Serum or plasma albumin yin urement (mass/volume)Ordered By: Debbie Stout on 11-04-2024 Albumin [Mass/Vol] 3.6 g/dL 3.4-4.8 [facility] Serum or plasma albumin/glob ulin mass ratioOrdered By: Debbie Stout on 11-04-2024 Albumin/Globulin [Mass ratio] 1.3 {ratio} 0.9-2.4 [facility] Serum or plasma alkaline cody sphatase measurementOrdered By: Debbie Stout on 11-04-2024 ALP [Catalytic activity/Vol] 54 U/L 40-129 [facility] Serum or plasma calcium yin urement (mass/volume)Ordered By: Debbie Stout on 11-04-2024 Calcium [Mass/Vol] 8.7 mg/dL 7.6-11.0 [facility] Serum or plasma creatine kin ase activityOrdered By: Debbie Stout on 11-04-2024 CK [Catalytic activity/Vol] 2755 U/L High 24-195 [facility] Serum or plasma urea nitroge n measurement (mass/volume)Ordered By: Debbie Stout on 11-04-2024 Urea nitrogen [Mass/Vol] 35 mg/dL High 4-19 [facility] Sodium levelOrdered By: Merlin Stout on 11-04-2024 Sodium [Moles/Vol] 136 mmol/L 133-145 [facility] Spine Cervical without Contr ason 11-04-2024 Spine Cervical without Contras Normal [facility] Squamous epithelial cells de tection in urine sediment by light microscopyOrdered By: Debbie Stout on 11-04-2024 Epithelial cells.squamous LM Ql (Urine sed) 0 SEEN /hpf 0-5 [facility] TSH DL <= 0.005 mIU/L QnOrde red By: Joel Lay on 11-04-2024 Thyroid Stimulating Hormone (TSH) 0.420 uIU/mL 0.300-4.20 0 [facility] TSH Qn 0.420 uIU/mL 0.300-4.20 0 [facility] Thyroid Stim Hormone (TSH)on 11-04-2024 TSH 0.420 uIU/mL Normal 0.300-4.20 0 [facility] Comment on above: Performed By: #### L 501.9954, L501.9557, L300.8000, L503.0106 ####[facility] [address] [place], [address] Total proteinOrdered By: Ishan Stout on 11-04-2024 Protein [Mass/Vol] 6.5 g/dL 5.9-8.4 [facility] Urinalysis, Completeon 11-04 BACTERIA Normal None Seen [facility] Comment on above: Order Comment: MIRTHA CTOR TO SPECIFY Result Comment: Canc elled via OM: Duplicate Order Performed By: #### L 400.0001 ####[facility] [address] [place], [address] BILIRUBIN URINE Normal Negative [facility] Comment on above: Order Comment: MIRTHA CTOR TO SPECIFY Result Comment: Canc elled via OM: Duplicate Order Performed By: #### L 400.0001 ####[facility] [address] [place], [address] Clarity (U) Normal Clear [facility] Comment on above: Order Comment: MIRTHA CTOR TO SPECIFY Result Comment: Canc elled via OM: Duplicate Order Performed By: #### L 400.0001 ####[facility] [address] [place], [address] Color (U) Normal Yellow [facility] Comment on above: Order Comment: MIRTHA CTOR TO SPECIFY Result Comment: Canc elled via OM: Duplicate Order Performed By: #### L 400.0001 ####[facility] [address] [place], [address] EPI,SQUAMOUS Normal 0-5 [facility] Comment on above: Order Comment: MIRTHA CTOR TO SPECIFY Result Comment: Canc elled via OM: Duplicate Order Performed By: #### L 400.0001 ####[facility] [address] [place], [address] GLUCOSE, UR Normal Normal [facility] Comment on above: Order Comment: MIRTHA CTOR TO SPECIFY Result Comment: Canc elled via OM: Duplicate Order Performed By: #### L 400.0001 ####[facility] [address] [place], [address] KETONE UR Normal Negative [facility] Comment on above: Order Comment: MIRTHA CTOR TO SPECIFY Result Comment: Canc elled via OM: Duplicate Order Performed By: #### L 400.0001 ####[facility] [address] [place], [address] LEUK ESTERASE Normal Negative [facility] Comment on above: Order Comment: MIRTHA CTOR TO SPECIFY Result Comment: Canc elled via OM: Duplicate Order Performed By: #### L 400.0001 ####[facility] [address] [place], [address] Mucus Ql (Urine sed) Normal [facility] Comment on above: Order Comment: MIRTHA CTOR TO SPECIFY Result Comment: Canc elled via OM: Duplicate Order Performed By: #### L 400.0001 ####[facility] [address] [place], [address] Nitrite Ql (U) Normal Negative [facility] Comment on above: Order Comment: MITRHA CTOR TO SPECIFY Result Comment: Canc elled via OM: Duplicate Order Performed By: #### L 400.0001 ####[facility] [address] [place], [address] OCCULT BLOOD-UR Normal Negative [facility] Comment on above: Order Comment: MIRTHA CTOR TO SPECIFY Result Comment: Canc elled via OM: Duplicate Order Performed By: #### L 400.0001 ####[facility] [address] [place], [address] pH UR Normal 5.0 - 8.0 [facility] Comment on above: Order Comment: MIRTHA CTOR TO SPECIFY Result Comment: Canc elled via OM: Duplicate Order Performed By: #### L 400.0001 ####[facility] [address] [place], [address] PROT DIPSTX Normal Negative [facility] Comment on above: Order Comment: MIRTHA CTOR TO SPECIFY Result Comment: Canc elled via OM: Duplicate Order Performed By: #### L 400.0001 ####[facility] [address] [place], [address] RBC Normal 0-5 [facility] Comment on above: Order Comment: COLLE CTOR TO SPECIFY Result Comment: Canc elled via OM: Duplicate Order Performed By: #### L 400.0001 ####[facility] [address] [place], [address] SP.GR. DIPSTX Normal 1.002-1.03 0 [facility] Comment on above: Order Comment: COLLE CTOR TO SPECIFY Result Comment: Canc elled via OM: Duplicate Order Performed By: #### L 400.0001 ####[facility] [address] [place], [address] UR Preservative Normal [facility] Comment on above: Order Comment: COLLE CTOR TO SPECIFY Result Comment: Canc elled via OM: Duplicate Order Performed By: #### L 400.0001 ####[facility] [address] [place], [address] UROBILI Normal Normal [facility] Comment on above: Order Comment: COLLE CTOR TO SPECIFY Result Comment: Canc elled via OM: Duplicate Order Performed By: #### L 400.0001 ####[facility] [address] [place], [address] WBC Normal 0-5 [facility] Comment on above: Order Comment: COLLE CTOR TO SPECIFY Result Comment: Canc elled via OM: Duplicate Order Performed By: #### L 400.0001 ####[facility] [address] [place], [address] BACTERIA 3+ /hpf Normal None Seen [facility] Comment on above: Order Comment: JOSEFINA TER SPECIMEN Performed By: #### L 400.0001 ####[facility] [address] [place], [address] RBC 10-25 SEEN Normal 0-5 [facility] Comment on above: Order Comment: JOSEFINA TER SPECIMEN Performed By: #### L 400.0001 ####[facility] [address] [place], [address] CAST,FINE GRAN 0-5 SEEN Normal 0-5 [facility] Comment on above: Order Comment: JOSEFINA TER SPECIMEN Performed By: #### L 400.0001 ####[facility] [address] [place], [address] WBC 10-25 SEEN Normal 0-5 [facility] Comment on above: Order Comment: JOSEFINA TER SPECIMEN Performed By: #### L 400.0001 ####[facility] [address] [place], [address] EPI,SQUAMOUS 0 SEEN Normal 0-5 [facility] Comment on above: Order Comment: JOSEFINA TER SPECIMEN Performed By: #### L 400.0001 ####[facility] [address] [place], [address] Mucus Ql (Urine sed) 0 SEEN Normal [facility] Comment on above: Order Comment: JOSEFINA TER SPECIMEN Performed By: #### L 400.0001 ####[facility] [address] [place], [address] Urine blood detectionOrdered By: Debbie Stout on 11-04-2024 Urine Occult Blood 250 /ul High Negative [facility] Urine clarityOrdered By: Ishan Stout on 11-04-2024 Clarity (U) Sl. Cloudy Clear [facility] Urine color determinationOrd ered By: Debbie Stout on 11-04-2024 Color (U) Yellow Yellow [facility] Urine cultureOrdered By: Filiberto Zavala on 11-04-2024 Bacteria identified Cx Nom (U) Burkholderia gladioli Abnormal [facility] Urine glucose detectionOrder ed By: Debbie Stout on 11-04-2024 Glucose Ql (U) Normal mg/dl Normal [facility] Urine leukocyte esterase det ection by dipstickOrdered By: Debbie Stout on 11-04-2024 Leukocyte esterase Test strip Ql (U) 500 /ul High Negative [facility] Urine pHOrdered By: Wanda Stout on 11-04-2024 pH (U) 5.0 [pH] 5.0 - 8.0 [facility] Urine sediment bacteria coun t by microscopy (number/high power field)Ordered By: Debbie Stout on 11-04-2024 Bacteria LM.HPF (Urine sed) [#/Area] 3 /[HPF] None Seen [facility] Urine sediment fine granular cast count by microscopy (number/low power field)Ordered By: Debbie Stout on 11-04-2024 Fine Granular Casts LM.LPF (Urine sed) [#/Area] 0-5 SEEN /lpf 0-5 [facility] Urine specific gravity measu rementOrdered By: Debbie Stout on 11-04-2024 Specific gravity (U) [Rel density] 1.015 1.002-1.03 0 [facility] Urine urobilinogen measureme ntOrdered By: Debbie Stout on 11-04-2024 Urobilinogen Ql (U) Normal mg/dl Normal [facility] Urobilinogen Ql (U)Ordered B y: Debbie Stout on 11-04-2024 Urine Urobilinogen Normal mg/dl Normal [facility] Venous Duplex US - Mitch Extre mon 11-04-2024 Venous Duplex US - Mitch Extrem Normal [facility] Vitamin B12 ser/plasOrdered By: Joel Lay on 11-04-2024 Cobalamin (Vitamin B12) [Mass/Vol] 483 pg/mL 180-914 [facility] White blood cell (WBC) count Ordered By: Debbie Stout on 11-04-2024 WBC (Bld) [#/Vol] 11.0 10*3/uL 4.4-11.0 [facility] White blood cell countOrdere d By: Debbie Stout on 11-04-2024 Urine WBC 10-25 SEEN /hpf 0-5 [facility] White blood cell count 10-25 SEEN /hpf 0-5 [facility] Abdomen Single Viewon 2024 Abdomen Single View Normal [facility] Bedside Glucoseon 10-19-2024 FINGERSTICK GLU 127 mg/dL High 74-106 [facility] Comment on above: Result Comment: NITISH CASEY OF PATIENT CARE PER NURSING PROTOCOL Performed By: #### L 501.080 ####[facility] [address] [place], [place], [id number] Discharge Instructionon 10-06 Discharge Instruction Normal [facility] deOrdered By: Jose Manuel Pham on 10-19-2024 Bedside Glucose (Misc Panel) 127 mg/dL High 74-106 [facility] Comment on above: MANAGEMENT OF PATIEN T CARE PER NURSING PROTOCOL Glucose [Mass/Vol] 127 mg/dL High 74-106 [facility] Comment on above: MANAGEMENT OF PATIEN T CARE PER NURSING PROTOCOL MR/POSTOP.ANEon 10-19-2024 MR/POSTOP.ANE Normal [facility] MR/VYREAGNC8gp 10-19-2024 MR/POSTOPAN2 [facility] Operative Reporton Operative Report Normal [facility] MR/PAT.ANEon 10-11-2024 MR/PAT.ANE [facility] BUN/creatinine ratioOrdered By: Mitch Mcwilliams on 10-04-2024 Urea nitrogen/Creatinine [Mass ratio] 22.0 mg/mg High 10-20 [facility] Basic Metabolic Profile (BMP )on 10-04-2024 Anion gap [Moles/Vol] 12 mmol/L Normal 5-15 [facility] Comment on above: Performed By: #### L 500.2500 ####[facility] [address] [place], [address] BUN/CRE 22.0 RATIO High -20 [facility] Comment on above: Performed By: #### L 500.2500 ####[facility] [address] [place], [address] Calcium [Mass/Vol] 9.8 mg/dL Normal 7.6-11.0 [facility] Comment on above: Performed By: #### L 500.2500 ####[facility] [address] [place], [address] Chloride [Moles/Vol] 106 mmol/L Normal 96-108 [facility] Comment on above: Performed By: #### L 500.2500 ####[facility] [address] [place], [address] CO2 [Moles/Vol] 21.3 mmol/L Low 22.0-29.0 [facility] Comment on above: Performed By: #### L 500.2500 ####[facility] [address] [place], [address] Creatinine [Mass/Vol] 1.4 mg/dL High 0.8-1.3 [facility] Comment on above: Performed By: #### L 500.2500 ####[facility] [address] [place], [address] GFR/1.73 sq M.predicted among non-blacks MDRD (S/P/Bld) [Vol rate/Area] 53 mL/min/{1.73_m2} Low >60 [facility] Comment on above: Result Comment: mL/m in/1.73m2 CKD-EPI Creatinine Equation (2020) Performed By: #### L 500.2500 ####[facility] [address] [place], [address] Glucose [Mass/Vol] 138 mg/dL High 70-99 [facility] Comment on above: Performed By: #### L 500.2500 ####[facility] [address] [place], [address] Potassium [Moles/Vol] 4.5 mmol/L Normal 3.3-5.1 [facility] Comment on above: Performed By: #### L 500.2500 ####[facility] [address] [place], [address] Sodium [Moles/Vol] 140 mmol/L Normal 133-145 [facility] Comment on above: Performed By: #### L 500.2500 ####[facility] [address] [place], [address] Urea nitrogen [Mass/Vol] 31 mg/dL High 4-19 [facility] Comment on above: Performed By: #### L 500.2500 ####[facility] [address] [place], [address] Carbon dioxide measurementOr dered By: Mitch Mcwilliams on 10-04-2024 CO2 [Moles/Vol] 21.3 mmol/L Low 22.0-29.0 [facility] Chloride measurementOrdered By: Mitch Mcwilliams on 10-04-2024 Chloride [Moles/Vol] 106 mmol/L 96-108 [facility] Creatinine [Moles/Vol]Ordere d By: Mitch Mcwilliams on 10-04-2024 Creatinine [Mass/Vol] 1.4 mg/dL High 0.8-1.3 [facility] GFR/1.73 sq M.predicted kristen g non-blacks MDRD (S/P/Bld) [Vol rate/Area]Ordered By: Mitch Mcwilliams on 10-04-2024 Estimated GFR (MDRD) Non-Af Amer 53 Low >60 [facility] Comment on above: mL/min/1.73m2 CKD-EP I Creatinine Equation (2020) Glomerular filtration rate ( GFR) estimation/1.73 sq m using serum, plasma, or whole bOrdered By: Mitch Mcwilliams 10-04-2024 GFR/1.73 sq M.predicted among non-blacks MDRD (S/P/Bld) [Vol rate/Area] 53 mL/min/{1.73_m2} Low >60 [facility] Comment on above: mL/min/1.73m2 CKD-EP I Creatinine Equation (2020) Serum glucose measurement (m ass/volume)Ordered By: Mitch Mcwilliams on 10-04-2024 Glucose [Mass/Vol] 138 mg/dL High 70-99 [facility] Serum or plasma anion gap de termination (moles/volume)Ordered By: Mitch Mcwilliams 10-04-2024 Anion gap [Moles/Vol] 12 mmol/L 5-15 [facility] Serum or plasma calcium yin urement (mass/volume)Ordered By: Mitch Mcwilliams on 10-04-2024 Calcium [Mass/Vol] 9.8 mg/dL 7.6-11.0 [facility] Serum or plasma creatinine m easurement (moles/volume)Ordered By: Mitch Mcwilliams on 10-04-2024 Creatinine [Moles/Vol] 1.4 mg/dL High 0.8-1.3 [facility] Serum or plasma potassium me asurementOrdered By: Mitch Mcwilliams on 10-04-2024 Potassium [Moles/Vol] 4.5 mmol/L 3.3-5.1 [facility] Serum or plasma sodium measu rement (moles/volume)Ordered By: Mitch Mcwilliams on 10-04-2024 Sodium [Moles/Vol] 140 mmol/L 133-145 [facility] Serum or plasma urea nitroge n measurement (mass/volume)Ordered By: Mitch Mcwilliams on 10-04-2024 Urea nitrogen [Mass/Vol] 31 mg/dL High 4-19 [facility] Basic Metabolic Profile (BMP )on 09-25-2024 BUN/CRE 18.9 RATIO Normal 10-20 [facility] Comment on above: Performed By: #### L 500.2500 ####[facility] [address] [place], [address] CA,Total 8.4 mg/dL Low 8.5-10.1 [facility] Comment on above: Performed By: #### L 500.2500 ####[facility] [address] [place], [address] ECRCL 40.43 ml/min Normal [facility] Comment on above: Performed By: #### L 500.2500 ####[facility] [address] [place], [address] EST GFR - AA 47 mL/min Low >60 [facility] Comment on above: Result Comment: Afri can [place] GFR Calc Performed By: #### L 500.2500 ####[facility] [address] [place], [address] GAP 10 Normal 5-15 [facility] Comment on above: Performed By: #### L 500.2500 ####[facility] [address] [place], [address] Bedside Glucoseon 09-25-2024 FINGERSTICK GLU 224 mg/dL High 74-106 [facility] Comment on above: Result Comment: NITISH GEMENT OF PATIENT CARE PER NURSING PROTOCOL Performed By: #### L 501.080 ####[facility] [address] [place], [address] FINGERSTICK GLU 124 mg/dL High 74-106 [facility] Comment on above: Result Comment: NITISH GEMENT OF PATIENT CARE PER NURSING PROTOCOL Performed By: #### L 501.080 ####[facility] [address] [place], [address] Blood urea nitrogen (BUN)/cr eatinine ratioOrdered By: Gen Mayen on 09-25-2024 Urea nitrogen/Creatinine [Mass ratio] 18.9 mg/mg 10-20 [facility] Carbon dioxide measurementOr dered By: Gen Mayen on 09-25-2024 CO2 [Moles/Vol] 20.0 mmol/L Low 21.0-32.0 [facility] Comment on above: Performed By: #### L 500.2500 ####[facility] [address] [place], [address] Chloride measurementOrdered By: Gen Mayen on 09-25-2024 Chloride [Moles/Vol] 109 mmol/L High 98-107 [facility] Comment on above: Performed By: #### L 500.2500 ####[facility] [address] [place], [address] Discharge Instructionon 09-08 Discharge Instruction Normal [facility] Estimated glomerular filtrat ion rate (GFR) AmericanOrdered By: Gen Mayen on 09-25-2024 Estimated GFR (MDRD) Amer 47 mL/min Low >60 [facility] Comment on above: GFR Calc Estimation of creatinine florentino aranceOrdered By: Gen Mayen on 09-25-2024 Estimated Creatinine Clearance Calc 40.43 ml/min [facility] Glomerular filtration rate ( GFR) estimationOrdered By: Gen Mayen on 09-25-2024 GFR/1.73 sq M.predicted among non-blacks MDRD (S/P/Bld) [Vol rate/Area] 39 mL/min/{1.73_m2} Low >60 [facility] Comment on above: Non- GFR Calc Result Comment: Non- GFR Calc Performed By: #### L 500.2500 ####[facility] [address] [place], [place], [address] Estimated GFR (MDRD) Non-Af Amer 39 mL/min Low >60 [facility] Comment on above: Non- GFR Calc Glucose measurementOrdered B y: Gen Mayen on 09-25-2024 Glucose [Mass/Vol] 130 mg/dL [address] Comment on above: Fasting Glucose resu lt greater than or equal to 126 mg/dL suggests DIABETES MELLITUS per A.D.A. criteria. Result Comment: Fast ing Glucose result greater than or equal to 126 mg/dLsuggests DIABETES MELLITUS per A.D.A. criteria. Performed By: #### L 500.2500 ####[facility] [address] [place], [place], [id number] Gl[facility] at [facility] deOrdered By: Gen Mayen on 09-25-2024 Bedside Glucose (Misc Panel) 224 mg/dL [address] Comment on above: MANAGEMENT OF PATIEN T CARE PER NURSING PROTOCOL Glucose [Mass/Vol] 224 mg/dL [address] [facility] Comment on above: MANAGEMENT OF PATIEN T CARE PER NURSING PROTOCOL Potassium measurementOrdered By: Gen Mayen on 09-25-2024 Potassium [Moles/Vol] 4.3 mmol/L 3.5-5.1 [facility] Comment on above: Performed By: #### L 500.2500 ####[facility] [address] [place], [address] Serum anion gap measurementO rdered By: Gen Mayen on 09-25-2024 Anion gap [Moles/Vol] 10 mmol/L 5-15 [facility] Serum or plasma calcium yin urement (mass/volume)Ordered By: Gen Mayen on 09-25-2024 Calcium [Mass/Vol] 8.4 mg/dL Low 8.5-10.1 [facility] Serum or plasma creatinine m easurement (mass/volume)Ordered By: Gen Mayen on 09-25-2024 Creatinine [Mass/Vol] 1.80 mg/dL High 0.70-1.30 [facility] Comment on above: The validity of the calculated GFR & GFRAA in patients over 70 years has not been determined. Clinical correlation is essential. Result Comment: The validity of the calculated GFR GFRAA in patients over70 years has not been determined. Clinical correlation isessential. Performed By: #### L 500.2500 ####[facility] [address] [place], [address] Serum or plasma urea nitroge n measurement (mass/volume)Ordered By: Gen Mayen on 09-25-2024 Urea nitrogen [Mass/Vol] 34 mg/dL High 7-18 [facility] Comment on above: Performed By: #### L 500.2500 ####[facility] [address] [place], [address] Sodium levelOrdered By: Lance Mayen on 09-25-2024 Sodium [Moles/Vol] 139 mmol/L 136-145 [facility] Comment on above: Performed By: #### L 500.2500 ####[facility] [address] [place], [address] Absolute lymphocyte countOrd ered By: Gen Mayen on 09-24-2024 Lymphocytes Auto (Unsp spec) [#/Vol] 1.44 10*3/uL 0.83-4.51 [facility] Absolute neutrophil countOrd ered By: Gen Mayen on 09-24-2024 Neutrophils (Bld) [#/Vol] 6.3 10*3/uL 2.0-7.7 [facility] Automated lymphocyte count a s percentage of total leukocytesOrdered By: Gen Mayen on 09-24-2024 Lymphocytes/100 WBC Auto (Unsp spec) 16.1 % Low 19-41 [facility] Basic Metabolic Profile (BMP )on 09-24-2024 BUN/CRE 15.6 RATIO Normal 10-20 [facility] Comment on above: Performed By: #### L 500.2500 ####[facility] [address] [place], [address] CA,Total 8.7 mg/dL Normal 8.5-10.1 [facility] Comment on above: Performed By: #### L 500.2500 ####[facility] [address] [place], [address] Chloride [Moles/Vol] 110 mmol/L High 98-107 [facility] Comment on above: Performed By: #### L 500.2500 ####[facility] [address] [place], [address] CO2 [Moles/Vol] 23.0 mmol/L Normal 21.0-32.0 [facility] Comment on above: Performed By: #### L 500.2500 ####[facility] [address] [place], [address] Creatinine [Mass/Vol] 2.44 mg/dL High 0.70-1.30 [facility] Comment on above: Result Comment: The validity of the calculated GFR GFRAA in patients over70 years has not been determined. Clinical correlation isessential. Performed By: #### L 500.2500 ####[facility] [address] [place], [address] ECRCL 29.83 ml/min Normal [facility] Comment on above: Performed By: #### L 500.2500 ####[facility] [address] [place], [address] EST GFR - AA 33 mL/min Low >60 [facility] Comment on above: Result Comment: Afri can [place] GFR Calc Performed By: #### L 500.2500 ####[facility] [address] [place], [address] GAP 5 Normal 5-15 [facility] Comment on above: Performed By: #### L 500.2500 ####[facility] [address] [place], [address] GFR/1.73 sq M.predicted among non-blacks MDRD (S/P/Bld) [Vol rate/Area] 28 mL/min/{1.73_m2} Low >60 [facility] Comment on above: Result Comment: Non- GFR Calc Performed By: #### L 500.2500 ####[facility] [address] [place], [address] Glucose [Mass/Vol] 114 mg/dL High 74-106 [facility] Comment on above: Result Comment: Fast ing Glucose result from 100 to 125 mg/dLsuggests IMPAIRED HOMEOSTASIS per A.D.A. criteria. Performed By: #### L 500.2500 ####[facility] [address] [place], [address] Potassium [Moles/Vol] 4.5 mmol/L Normal 3.5-5.1 [facility] Comment on above: Performed By: #### L 500.2500 ####[facility] [address] [place], [address] Sodium [Moles/Vol] 138 mmol/L Normal 136-145 [facility] Comment on above: Performed By: #### L 500.2500 ####[facility] [address] [place], [address] Urea nitrogen [Mass/Vol] 38 mg/dL High 7-18 [facility] Comment on above: Performed By: #### L 500.2500 ####[facility] [address] [place], [address] BUN/CRE 16.8 RATIO Normal 10-20 [facility] Comment on above: Performed By: #### L 500.2500, L100.0100 ####[facility] [address] [place], [address] CA,Total 8.3 mg/dL Low 8.5-10.1 [facility] Comment on above: Performed By: #### L 500.2500, L100.0100 ####[facility] [address] [place], [address] Chloride [Moles/Vol] 111 mmol/L High 98-107 [facility] Comment on above: Performed By: #### L 500.2500, L100.0100 ####[facility] [address] [place], [address] CO2 [Moles/Vol] 19.0 mmol/L Low 21.0-32.0 [facility] Comment on above: Performed By: #### L 500.2500, L100.0100 ####[facility] [address] [place], [address] Creatinine [Mass/Vol] 2.38 mg/dL High 0.70-1.30 [facility] Comment on above: Result Comment: The validity of the calculated GFR GFRAA in patients over70 years has not been determined. Clinical correlation isessential. Performed By: #### L 500.2500, L100.0100 ####[facility] [address] [place], [address] ECRCL 30.58 ml/min Normal [facility] Comment on above: Performed By: #### L 500.2500, L100.0100 ####[facility] [address] [place], [address] EST GFR - AA 34 mL/min Low >60 [facility] Comment on above: Result Comment: Afri can [place] GFR Calc Performed By: #### L 500.2500, L100.0100 ####[facility] [facility] [address] [place], [address] GAP 8 Normal 5-15 [facility] Comment on above: Performed By: #### L 500.2500, L100.0100 ####[facility] [address] [place], [address] GFR/1.73 sq M.predicted among non-blacks MDRD (S/P/Bld) [Vol rate/Area] 28 mL/min/{1.73_m2} Low >60 [facility] Comment on above: Result Comment: Non- GFR Calc Performed By: #### L 500.2500, L100.0100 ####[facility] [address] [place], [address] Glucose [Mass/Vol] 130 mg/dL High 74-106 [facility] Comment on above: Result Comment: Fast ing Glucose result greater than or equal to 126 mg/dLsuggests DIABETES MELLITUS per A.D.A. criteria. Performed By: #### L 500.2500, L100.0100 ####[facility] [address] [place], [address] Potassium [Moles/Vol] 4.6 mmol/L Normal 3.5-5.1 [facility] Comment on above: Performed By: #### L 500.2500, L100.0100 ####[facility] [address] [place], [address] Sodium [Moles/Vol] 138 mmol/L Normal 136-145 [facility] Comment on above: Performed By: #### L 500.2500, L100.0100 ####[facility] [address] [place], [address] Urea nitrogen [Mass/Vol] 40 mg/dL High 7-18 [facility] Comment on above: Performed By: #### L 500.2500, L100.0100 ####[facility] [address] [place], [address] Basophil percentageOrdered B y: Gen Mayen on 09-24-2024 Basophils/100 WBC (Bld) 0.2 % 0-[address] [facility] Bedside Glucoseon 09-24-2024 FINGERSTICK GLU 189 mg/dL High 74-106 [facility] Comment on above: Result Comment: NITISH GEMENT OF PATIENT CARE PER NURSING PROTOCOL Performed By: #### L 501.080 ####[facility] [address] [place], [address] FINGERSTICK GLU 115 mg/dL High 74-106 [facility] Comment on above: Result Comment: NITISH GEMENT OF PATIENT CARE PER NURSING PROTOCOL Performed By: #### L 501.080 ####[facility] [address] [place], [address] FINGERSTICK GLU 109 mg/dL High 74-106 [facility] Comment on above: Result Comment: NITISH GEMENT OF PATIENT CARE PER NURSING PROTOCOL Performed By: #### L 501.080 ####[facility] [address] [place], [address] FINGERSTICK GLU 127 mg/dL High 74-106 [facility] Comment on above: Result Comment: NITISH GEMENT OF PATIENT CARE PER NURSING PROTOCOL Performed By: #### L 501.080 ####[facility] [address] [place], [address] CBC W/Diff, Automatedon 02- Absolute Lymph 1.44 X10 3/uL Normal 0.83-4.51 [facility] Comment on above: Performed By: #### L 100.0100 ####[facility] [address] [place], [address] Absolute Neut 6.3 X10 3/uL Normal 2.0-7.7 [facility] Comment on above: Performed By: #### L 100.0100 ####[facility] [address] [place], [address] Basophils/100 WBC (Bld) 0.2 % Normal 0-[address] [facility] Comment on above: Performed By: #### L 100.0100 ####[facility] [address] [place], [address] Eosinophils/100 WBC (Bld) 0.9 % Normal 0-5 [facility] Comment on above: Performed By: #### L 100.0100 ####[facility] [address] [place], [address] Erythrocyte distribution width (RBC) [Ratio] 13.2 % Normal 11.6-14.6 [facility] Comment on above: Performed By: #### L 100.0100 ####[facility] [address] [place], [address] Hematocrit (Bld) [Volume fraction] 32.4 % Low 40-54 [facility] Comment on above: Performed By: #### L 100.0100 ####[facility] [address] [place], [address] Hemoglobin (Bld) [Mass/Vol] 10.5 g/dL Low 13.0-16. 5 [facility] Comment on above: Performed By: #### L 100.0100 ####[facility] [address] [place], [address] IG% 1.000 High 0.0-0.9 [facility] Comment on above: Result Comment: IG% - Immature Granulocytes (promyelocytes, myelocytes andmetamyelocytes) > 1% indicates that a LEFT SHIFT is Present. Performed By: #### L 100.0100 ####[facility] [address] [place], [address] Lymphocytes/100 WBC (Bld) 16.1 % Low 19-41 [facility] Comment on above: Performed By: #### L 100.0100 ####[facility] [address] [place], [address] MCH (RBC) [Entitic mass] 32.1 pg High 27.0-32.0 [facility] Comment on above: Performed By: #### L 100.0100 ####[facility] [address] [place], [address] MCHC (RBC) [Mass/Vol] 32.4 g/dL Normal 32-36 [facility] Comment on above: Performed By: #### L 100.0100 ####[facility] [address] [place], [address] MCV (RBC) [Entitic vol] 99.1 fL High 80-[address] [facility] Comment on above: Performed By: #### L 100.0100 ####[facility] [address] [place], [address] Monocytes/100 WBC (Bld) 11.2 % High 0-[address] [facility] Comment on above: Performed By: #### L 100.0100 ####[facility] [address] [place], [address] Neutrophils/100 WBC (Bld) 70.6 % High 47-70 [facility] Comment on above: Performed By: #### L 100.0100 ####[facility] [address] [place], [address] Nucleated RBC (Bld) [#/Vol] 0 10*3/uL Normal 0-5 [facility] Comment on above: Performed By: #### L 100.0100 ####[facility] [address] [place], [address] Platelet mean volume (Bld) [Entitic vol] 9.2 fL Normal 6.2-12.0 [facility] Comment on above: Performed By: #### L 100.0100 ####[facility] [address] [place], [address] Platelets (Bld) [#/Vol] 208 10*3/uL Normal 150-450 [facility] Comment on above: Performed By: #### L 100.0100 ####[facility] [address] [place], [address] RBC (Bld) [#/Vol] 3.27 10*6/uL Low 4.6-6.2 [facility] Comment on above: Performed By: #### L 100.0100 ####[facility] [address] [place], [address] RDW SD 47.6 fl High 35.1-43.9 [facility] Comment on above: Performed By: #### L 100.0100 ####[facility] [address] [place], [address] WBC (Bld) [#/Vol] 8.9 10*3/uL Normal 4.4-11.0 [facility] Comment on above: Performed By: #### L 100.0100 ####[facility] [address] [place], [address] Absolute Lymph 1.31 X10 3/uL Normal 0.83-4.51 [facility] Comment on above: Performed By: #### L 500.2500, L100.0100 ####[facility] [address] [place], [address] Absolute Neut 6.5 X10 3/uL Normal 2.0-7.7 [facility] Comment on above: Performed By: #### L 500.2500, L100.0100 ####[facility] [address] [place], [address] Basophils/100 WBC (Bld) 0.2 % Normal 0-[address] [facility] Comment on above: Performed By: #### L 500.2500, L100.0100 ####[facility] [address] [place], [address] Eosinophils/100 WBC (Bld) 0.8 % Normal 0-5 [facility] Comment on above: Performed By: #### L 500.2500, L100.0100 ####[facility] [address] [place], [address] Erythrocyte distribution width (RBC) [Ratio] 13.4 % Normal 11.6-14.6 [facility] Comment on above: Performed By: #### L 500.2500, L100.0100 ####[facility] [address] [place], [address] Hematocrit (Bld) [Volume fraction] 33.0 % Low 40-54 [facility] Comment on above: Performed By: #### L 500.2500, L100.0100 ####[facility] [address] [place], [address] Hemoglobin (Bld) [Mass/Vol] 10.9 g/dL Low 13.0-16. 5 [facility] Comment on above: Performed By: #### L 500.2500, L100.0100 ####[facility] [address] [place], [address] IG% 1.400 High 0.0-0.9 [facility] Comment on above: Result Comment: IG% - Immature Granulocytes (promyelocytes, myelocytes andmetamyelocytes) > 1% indicates that a LEFT SHIFT is Present. Performed By: #### L 500.2500, L100.0100 ####[facility] [address] [place], [address] Lymphocytes/100 WBC (Bld) 14.4 % Low 19-41 [facility] Comment on above: Performed By: #### L 500.2500, L100.0100 ####[facility] [address] [place], [address] MCH (RBC) [Entitic mass] 32.9 pg High 27.0-32.0 [facility] Comment on above: Performed By: #### L 500.2500, L100.0100 ####[facility] [address] [place], [address] MCHC (RBC) [Mass/Vol] 33.0 g/dL Normal 32-36 [facility] Comment on above: Performed By: #### L 500.2500, L100.0100 ####[facility] [address] [place], [address] MCV (RBC) [Entitic vol] 99.7 fL High 80-[address] [facility] Comment on above: Performed By: #### L 500.2500, L100.0100 ####[facility] [address] [place], [address] Monocytes/100 WBC (Bld) 12.2 % High 0-[address] [facility] Comment on above: Performed By: #### L 500.2500, L100.0100 ####[facility] [address] [place], [address] Neutrophils/100 WBC (Bld) 71.0 % High 47-70 [facility] Comment on above: Performed By: #### L 500.2500, L100.0100 ####[facility] [address] [place], [address] Nucleated RBC (Bld) [#/Vol] 0 10*3/uL Normal 0-5 [facility] Comment on above: Performed By: #### L 500.2500, L100.0100 ####[facility] [address] [place], [address] Platelet mean volume (Bld) [Entitic vol] 9.4 fL Normal 6.2-12.0 [facility] Comment on above: Performed By: #### L 500.2500, L100.0100 ####[facility] [address] [place], [address] Platelets (Bld) [#/Vol] 217 10*3/uL Normal 150-450 [facility] Comment on above: Performed By: #### L 500.2500, L100.0100 ####[facility] [address] [place], [address] RBC (Bld) [#/Vol] 3.31 10*6/uL Low 4.6-6.2 [facility] Comment on above: Performed By: #### L 500.2500, L100.0100 ####[facility] [address] [place], [address] RDW SD 49.1 fl High 35.1-43.9 [facility] Comment on above: Performed By: #### L 500.2500, L100.0100 ####[facility] [address] [place], [address] WBC (Bld) [#/Vol] 9.1 10*3/uL Normal 4.4-11.0 [facility] Comment on above: Performed By: #### L 500.2500, L100.0100 ####[facility] [address] [place], [address] Consultation - Urologyon Consultation - Urology Normal [facility] Eosinophil percentageOrdered By: Gen Mayen on 09-24-2024 Eosinophils/100 WBC (Bld) 0.9 % 0-5 [facility] Erythrocyte distribution wid th ratioOrdered By: Gen Mayen on 09-24-2024 Erythrocyte distribution width (RBC) [Ratio] 13.2 % 11.6-14.6 [facility] Erythrocyte distribution wid th standard deviationOrdered By: Gen Mayen on 09-24-2024 Erythrocyte distribution width (RBC) [Entitic vol] 47.6 fL High 35.1-43.9 [facility] Erythrocyte distribution width (RBC) [Ratio] 47.6 fl High 35.1-43.9 [facility] Hematocrit Auto (Bld) [Volum e fraction]Ordered By: Gen Mayen on 09-24-2024 Hematocrit (Bld) [Volume fraction] 32.4 % Low 40-54 [facility] Hemoglobin A1con 09-24-2024 HbA1c (Bld) [Mass fraction] 6.9 % High 3.8-5.6 [facility] Comment on above: Order Comment: Comme nts: can use blood already drawn this am Result Comment: Norm al < 5.7 % Prediabetic 5.7 - 6.4 % Diabetic >or= 6.5 % Please note range changes. Performed By: #### L 501.9985 ####[facility] [address] [place], [address] Hemoglobin A1c percentageOrd ered By: Santos Mahmood on 09-24-2024 HbA1c (Bld) [Mass fraction] 6.9 % High 3.8-5.6 [facility] Comment on above: Normal < 5.7 % Predi abetic 5.7 - 6.4 % Diabetic >or= 6.5 % Please note range changes. Hemoglobin measurementOrdere d By: Gen Mayen on 09-24-2024 Hemoglobin (Bld) [Mass/Vol] 10.5 g/dL Low 13.0-16. 5 [facility] Immature granulocytes/100 WB C Auto (Bld)Ordered By: Gen Mayen on 09-24-2024 Immature granulocytes/100 WBC (Bld) 1.000 % High 0.0-0.9 [facility] Comment on above: IG% - Immature Granu locytes (promyelocytes, myelocytes and metamyelocytes) > 1% indicates that a LEFT SHIFT is Present. Lymphocytes Auto (Unsp spec) [#/Vol]Ordered By: Gen Mayen on 09-24-2024 Lymphocytes (Bld) [#/Vol] 1.44 10*3/uL 0.83-4.5 1 [facility] Lymphocytes/100 WBC Auto (Un sp spec)Ordered By: Gen Mayen on 09-24-2024 Lymphocytes/100 WBC (Bld) 16.1 % Low 19-41 [facility] MCV (mean corpuscular volume ) determinationOrdered By: Gen Mayen on 09-24-2024 MCV (RBC) [Entitic vol] 99.1 fL High 80-[address] [facility] MR/POSTOP.ANEon 09-24-2024 MR/POSTOP.ANE Normal [facility] MR/DPPJYDRE5gm 09-24-2024 MR/POSTOPAN2 Normal [facility] Mean corpuscular hemoglobin (MCH) determinationOrdered By: Gen Mayen on 09-24-2024 MCH (RBC) [Entitic mass] 32.1 pg High 27.0-32.0 [facility] Mean corpuscular hemoglobin concentration (MCHC) determinationOrdered By: Gen Mayen on 09-24-2024 MCHC (RBC) [Mass/Vol] 32.4 g/dL 32-36 [facility] Mean platelet volume determi nationOrdered By: Gen Mayen on 09-24-2024 Platelet mean volume (Bld) [Entitic vol] 9.2 fL 6.2-12.0 [facility] Monocyte percentageOrdered B y: Gen Mayen on 09-24-2024 Monocytes/100 WBC (Bld) 11.2 % High 0-[address] [facility] Neutrophil percentageOrdered By: Gen Mayen on 09-24-2024 Neutrophils/100 WBC (Bld) 70.6 % High 47-70 [facility] Nucleated red blood cell per centageOrdered By: Gen Mayen on 09-24-2024 Nucleated RBC/100 WBC (Bld) [Ratio] 0 % 0-5 [facility] Operative Reporton Operative Report Normal [facility] Platelet countOrdered By: Massiel Mayen on 09-24-2024 Platelets (Bld) [#/Vol] 208 10*3/uL 150-450 [facility] RBC Auto (Bld) [#/Vol]Ordere d By: Gen Mayen on 09-24-2024 RBC (Bld) [#/Vol] 3.27 10*6/uL Low 4.6-6.2 [facility] Urine Cultureon 09-24-2024 URC Culture exhibits no growth. Normal [facility] Comment on above: Performed By: #### M 100.2200 ####[facility] [address] [place], [address] White blood cell (WBC) count Ordered By: Gen Mayen on 09-24-2024 WBC (Bld) [#/Vol] 8.9 10*3/uL 4.4-11.0 [facility] Abdomen/Pelvis without Conto n 09-23-2024 Abdomen/Pelvis without Cont Normal [facility] Basic Metabolic Profile (BMP )on 09-23-2024 BUN/CRE 18.1 RATIO Normal 10-20 [facility] Comment on above: Performed By: #### L 100.0100, L500.2500 ####[facility] [address] [place], [address] CA,Total 9.2 mg/dL Normal 8.5-10.1 [facility] Comment on above: Performed By: #### L 100.0100, L500.2500 ####[facility] [address] [place], [address] Chloride [Moles/Vol] 108 mmol/L High 98-107 [facility] Comment on above: Performed By: #### L 100.0100, L500.2500 ####[facility] [address] [place], [address] CO2 [Moles/Vol] 19.0 mmol/L Low 21.0-32.0 [facility] Comment on above: Performed By: #### L 100.0100, L500.2500 ####[facility] [address] [place], [address] Creatinine [Mass/Vol] 2.49 mg/dL High 0.70-1.30 [facility] Comment on above: Result Comment: The validity of the calculated GFR GFRAA in patients over70 years has not been determined. Clinical correlation isessential. Performed By: #### L 100.0100, L500.2500 ####[facility] [address] [place], [address] ECRCL 29.32 ml/min Normal [facility] Comment on above: Performed By: #### L 100.0100, L500.2500 ####[facility] [address] [place], [address] EST GFR - AA 33 mL/min Low >60 [facility] Comment on above: Result Comment: Afri can [place] GFR Calc Performed By: #### L 100.0100, L500.2500 ####[facility] [address] [place], [address] GAP 10 Normal 5-15 [facility] Comment on above: Performed By: #### L 100.0100, L500.2500 ####[facility] [address] [place], [address] GFR/1.73 sq M.predicted among non-blacks MDRD (S/P/Bld) [Vol rate/Area] 27 mL/min/{1.73_m2} Low >60 [facility] Comment on above: Result Comment: Non- GFR Calc Performed By: #### L 100.0100, L500.2500 ####[facility] [address] [place], [address] Glucose [Mass/Vol] 233 mg/dL High 74-106 [facility] Comment on above: Result Comment: Gluc ose result greater than or equal to 200 mg/dLsuggests DIABETES MELLITUS per A.D.A. criteria. Performed By: #### L 100.0100, L500.2500 ####[facility] [address] [place], [address] Potassium [Moles/Vol] 4.3 mmol/L Normal 3.5-5.1 [facility] Comment on above: Performed By: #### L 100.0100, L500.2500 ####[facility] [address] [place], [address] Sodium [Moles/Vol] 137 mmol/L Normal 136-145 [facility] Comment on above: Performed By: #### L 100.0100, L500.2500 ####[facility] [address] [place], [address] Urea nitrogen [Mass/Vol] 45 mg/dL High 7-18 [facility] Comment on above: Performed By: #### L 100.0100, L500.2500 ####[facility] [address] [place], [address] Bedside Glucoseon 09-23-2024 FINGERSTICK GLU 113 mg/dL High 74-106 [facility] Comment on above: Result Comment: NITISH GEMENT OF PATIENT CARE PER NURSING PROTOCOL Performed By: #### L 501.080 ####[facility] [address] [place], [address] FINGERSTICK GLU 182 mg/dL High 74-106 [facility] Comment on above: Result Comment: NIITSH GEMENT OF PATIENT CARE PER NURSING PROTOCOL Performed By: #### L 501.080 ####[facility] [address] [place], [address] FINGERSTICK GLU 194 mg/dL High 74-106 [facility] Comment on above: Result Comment: NITISH CASEY OF PATIENT CARE PER NURSING PROTOCOL Performed By: #### L 501.080 ####[facility] [address] [place], [address] Bilirubin Test strip Ql (U)O rdered By: Gino Cahudhary on 09-23-2024 Bilirubin Ql (U) Negative Negative [facility] CBC W/Diff, Automatedon 09-08 Absolute Lymph 0.80 X10 3/uL Low 0.83-4.51 [facility] Comment on above: Performed By: #### L 100.0100, L500.2500 ####[facility] [address] [place], [address] Absolute Neut 12.0 X10 3/uL High 2.0-7.7 [facility] Comment on above: Performed By: #### L 100.0100, L500.2500 ####[facility] [address] [place], [address] Basophils/100 WBC (Bld) 0.1 % Normal 0-[address] [facility] Comment on above: Performed By: #### L 100.0100, L500.2500 ####[facility] [address] [place], [address] Eosinophils/100 WBC (Bld) 0.1 % Normal 0-5 [facility] Comment on above: Performed By: #### L 100.0100, L500.2500 ####[facility] [address] [place], [address] Erythrocyte distribution width (RBC) [Ratio] 13.2 % Normal 11.6-14.6 [facility] Comment on above: Performed By: #### L 100.0100, L500.2500 ####[facility] [address] [place], [address] Hematocrit (Bld) [Volume fraction] 40.8 % Normal 40-54 [facility] [facility] Comment on above: Performed By: #### L 100.0100, L500.2500 ####[facility] [address] [place], [address] Hemoglobin (Bld) [Mass/Vol] 13.4 g/dL Normal 13.0-16. 5 [facility] Comment on above: Performed By: #### L 100.0100, L500.2500 ####[facility] [address] [place], [address] IG% 1.500 High 0.0-0.9 [facility] Comment on above: Result Comment: IG% - Immature Granulocytes (promyelocytes, myelocytes andmetamyelocytes) > 1% indicates that a LEFT SHIFT is Present. Performed By: #### L 100.0100, L500.2500 ####[facility] [address] [place], [address] Lymphocytes/100 WBC (Bld) 5.6 % Low 19-41 [facility] Comment on above: Performed By: #### L 100.0100, L500.2500 ####[facility] [address] [place], [address] MCH (RBC) [Entitic mass] 32.1 pg High 27.0-32.0 [facility] Comment on above: Performed By: #### L 100.0100, L500.2500 ####[facility] [address] [place], [address] MCHC (RBC) [Mass/Vol] 32.8 g/dL Normal 32-36 [facility] Comment on above: Performed By: #### L 100.0100, L500.2500 ####[facility] [address] [place], [address] MCV (RBC) [Entitic vol] 97.6 fL High 80-[address] [facility] Comment on above: Performed By: #### L 100.0100, L500.2500 ####[facility] [address] [place], [address] Monocytes/100 WBC (Bld) 8.9 % Normal 0-[address] [facility] Comment on above: Performed By: #### L 100.0100, L500.2500 ####[facility] [address] [place], [address] Neutrophils/100 WBC (Bld) 83.8 % High 47-70 [facility] Comment on above: Performed By: #### L 100.0100, L500.2500 ####[facility] [address] [place], [address] Nucleated RBC (Bld) [#/Vol] 0 10*3/uL Normal 0-5 [facility] Comment on above: Performed By: #### L 100.0100, L500.2500 ####[facility] [address] [place], [address] Platelet mean volume (Bld) [Entitic vol] 9.4 fL Normal 6.2-12.0 [facility] Comment on above: Performed By: #### L 100.0100, L500.2500 ####[facility] [address] [place], [address] Platelets (Bld) [#/Vol] 302 10*3/uL Normal 150-450 [facility] Comment on above: Performed By: #### L 100.0100, L500.2500 ####[facility] [address] [place], [address] RBC (Bld) [#/Vol] 4.18 10*6/uL Low 4.6-6.2 [facility] Comment on above: Performed By: #### L 100.0100, L500.2500 ####[facility] [address] [place], [address] RDW SD 46.8 fl High 35.1-43.9 [facility] Comment on above: Performed By: #### L 100.0100, L500.2500 ####[facility] [address] [place], [address] WBC (Bld) [#/Vol] 14.3 10*3/uL High 4.4-11.0 [facility] Comment on above: Performed By: #### L 100.0100, L500.2500 ####[facility] [address] [place], [address] Emergency Department Summary on 09-23-2024 Emergency Department Summary Normal [facility] Epithelial cells.squamous LM Ql (Urine sed)Ordered By: Gino Chaudhary on 09-23-2024 Epithelial cells.squamous LM.HPF (Urine sed) [#/Area] 0 /[HPF] 0-5 [facility] Glucose Ql (U)Ordered By: Haydee Chaudhary on 09-23-2024 Glucose (U) [Mass/Vol] 50 mg/dL High Normal [facility] H AND P Exam - [facility] 09-23-2024 H&P Exam - Hospitalist Normal [facility] Ketones Test strip Ql (U)Ord ered By: Gino Chaudhary on 09-23-2024 Ketones Ql (U) Negative Negative [facility] Microscopic analysis of urin e for red blood cells (RBC)Ordered By: Gino hCaudhary on 09-23-2024 Microscopic analysis of urine for red blood cells (RBC) 10-25 SEEN /hpf 0-5 [facility] Urine RBC 10-25 SEEN /hpf 0-5 [facility] Mucus LM Ql (Urine sed)Order ed By: Gino Chaudhary on 09-23-2024 Mucus Ql (Urine sed) 1+ /hpf [facility] Nitrite Test strip Ql (U)Ord ered By: Gino Chaudhary on 09-23-2024 Nitrite Ql (U) Negative Negative [facility] Protein Test strip Ql (U)Ord ered By: Gino Chaudhary on 09-23-2024 Protein Ql (U) 100 mg/dl High Negative [facility] Squamous epithelial cells de tection in urine sediment by light microscopyOrdered By: Gino Chaudhary on 09-23-2024 Epithelial cells.squamous LM Ql (Urine sed) 0-5 SEEN /hpf 0-5 [facility] Urinalysis, Completeon 09-23 BACTERIA 1+ /hpf Normal None Seen [facility] Comment on above: Order Comment: MIRTHA CTOR TO SPECIFY Performed By: #### L 400.0001 ####[facility] [address] [place], [address] EPI,SQUAMOUS 0-5 SEEN Normal 0-5 [facility] Comment on above: Order Comment: MIRTHA CTOR TO SPECIFY Performed By: #### L 400.0001 ####[facility] [address] [place], [address] Mucus Ql (Urine sed) 1+ /hpf Normal [facility] Comment on above: Order Comment: MIRTHA CTOR TO SPECIFY Performed By: #### L 400.0001 ####[facility] [address] [place], [address] RBC 10-25 SEEN Normal 0-5 [facility] Comment on above: Order Comment: MIRTHA CTOR TO SPECIFY Performed By: #### L 400.0001 ####[facility] [address] [place], [address] WBC 0-5 SEEN Normal 0-5 [facility] Comment on above: Order Comment: MIRTHA CTOR TO SPECIFY Performed By: #### L 400.0001 ####[facility] [address] [place], [address] Urine blood detectionOrdered By: Gino Chaudhary on 09-23-2024 Urine Occult Blood 250 /ul High Negative [facility] Urine clarityOrdered By: Stefan Chaudhary on 09-23-2024 Clarity (U) Clear Clear [facility] Urine color determinationOrd ered By: Gino Chaudhary on 09-23-2024 Color (U) Yellow Yellow [facility] Urine cultureOrdered By: Stefan Chaudhary on 09-23-2024 Bacteria identified Cx Nom (U) Culture exhibits no growth. [facility] Urine glucose detectionOrder ed By: Gino Chaudhary on 09-23-2024 Glucose Ql (U) 50 mg/dl High Normal [facility] Urine leukocyte esterase det ection by dipstickOrdered By: Gino Chaudhary on 09-23-2024 Leukocyte esterase Test strip Ql (U) Negative Negative [facility] Urine pHOrdered By: Gino Aguilar ndes on 09-23-2024 pH (U) 5.0 [pH] 5.0 - 8.0 [facility] Urine sediment bacteria coun t by microscopy (number/high power field)Ordered By: Gino Chaudhary on 09-23-2024 Bacteria LM.HPF (Urine sed) [#/Area] 1 /[HPF] None Seen [facility] Urine specific gravity measu rementOrdered By: Gino Chaudhary on 09-23-2024 Specific gravity (U) [Rel density] 1.025 1.002-1.03 0 [facility] Urine urobilinogen measureme ntOrdered By: Gino Chaudhary on 09-23-2024 Urobilinogen Ql (U) Normal mg/dl Normal [facility] Urobilinogen Ql (U)Ordered B y: Gino Chaudhary on 09-23-2024 Urine Urobilinogen Normal mg/dl Normal [facility] White blood cell countOrdere d By: Gino Chaudhary on 09-23-2024 Urine WBC 0-5 SEEN /hpf 0-5 [facility] White blood cell count 0-5 SEEN /hpf 0-5 [facility] Brain without Contraston Brain without Contrast Normal [facility] PSA,Total - Annual Screenon 07-19-2024 PSA,TOT SCREEN 0.51 ng/mL Normal 0.00-4.00 [facility] Comment on above: Result Comment: This test was performed using the TPSA assay method for the[facility] chemistry system. Values obtained with differentassay methods cannot be used interchangably.When changing PSA assays in the course of monitoring apatient, additional sequential testing should be carriedout to confirm baseline values. Performed By: #### L 501.9910 ####[facility] [address] [place], [address] Screening prostate specific antigen (PSA) measurementOrdered By: Mitch Mcwilliams on 07-19-2024 Prostate Specific Antigen Screen 0.51 ng/mL 0.00-4.00 [facility] Comment on above: This test was perfor med using the TPSA assay method for the[employer] chemistry system. Values obtained with differentassay methods cannot be used interchangably.When changing PSA assays in the course of monitoring apatient, additional sequential testing should be carriedout to confirm baseline values. Spine Cervical (Routine)on 09-19-2023 Spine Cervical (Routine) Normal [facility] Spine Lumbar (Routine)on Spine Lumbar (Routine) Normal [facility] Spine Thoracic (Routine)on 09-19-2023 Spine Thoracic (Routine) Normal [facility] Abdomen/Pelvis without Conto n 06-25-2024 Abdomen/Pelvis without Cont Normal [facility] Bilirubin Test strip Ql (U)O rdered By: Darrin Mata on 06-25-2024 Bilirubin Ql (U) Negative Negative [facility] Emergency Department Summary on 06-25-2024 Emergency Department Summary Normal [facility] Epithelial cells.renal LM.HP F (Urine sed) [#/Area]Ordered By: Darrin Mata on 06-25-2024 Urine Renal Epithelial Cells 0-5 SEEN /hpf 0-5 [facility] Epithelial cells.squamous LM Ql (Urine sed)Ordered By: Darrin Mata on 06-25-2024 Epithelial cells.squamous LM.HPF (Urine sed) [#/Area] 0 /[HPF] 0-5 [facility] Glucose Ql (U)Ordered By: Maged Mata on 06-25-2024 Glucose (U) [Mass/Vol] 250 mg/dL High Normal [facility] Ketones Test strip Ql (U)Ord ered By: Darrin Mata on 06-25-2024 Ketones Ql (U) Negative Negative [facility] Microscopic analysis of urin e for red blood cells (RBC)Ordered By: Darrin Mata on 06-25-2024 Urine RBC 50-100 SEEN /hpf 0-5 [facility] Mucus LM Ql (Urine sed)Order ed By: Darrin Mata on 06-25-2024 Mucus Ql (Urine sed) 2+ /hpf [facility] Nitrite Test strip Ql (U)Ord ered By: Darrin Mata on 06-25-2024 Nitrite Ql (U) Negative Negative [facility] Protein Test strip Ql (U)Ord ered By: Darrin Mata on 06-25-2024 Protein Ql (U) 100 mg/dl High Negative [facility] Urinalysis, Completeon 06-25 BACTERIA 1+ /hpf Normal None Seen [facility] Comment on above: Order Comment: COLOR OF URINE MAY AFFECT DIPSTICK RESULTS.CHERRY PICKER OPERATOR TO SPECIFY Performed By: #### L 400.0001 ####[facility] [address] [place], [address] EPI,RENAL 0-5 SEEN Normal 0-5 [facility] Comment on above: Order Comment: COLOR OF URINE MAY AFFECT DIPSTICK RESULTS.CHERRY PICKER OPERATOR TO SPECIFY Performed By: #### L 400.0001 ####[facility] [address] [place], [address] EPI,SQUAMOUS 0-5 SEEN Normal 0-5 [facility] Comment on above: Order Comment: COLOR OF URINE MAY AFFECT DIPSTICK RESULTS.CHERRY PICKER OPERATOR TO SPECIFY Performed By: #### L 400.0001 ####[facility] [address] [place], [address] Mucus Ql (Urine sed) 2+ /hpf Normal [facility] Comment on above: Order Comment: COLOR OF URINE MAY AFFECT DIPSTICK RESULTS.CHERRY PICKER OPERATOR TO SPECIFY Performed By: #### L 400.0001 ####[facility] [address] [place], [address] RBC 50-100 SEEN Normal 0-5 [facility] Comment on above: Order Comment: COLOR OF URINE MAY AFFECT DIPSTICK RESULTS.CHERRY PICKER OPERATOR TO SPECIFY Performed By: #### L 400.0001 ####[facility] [address] [place], [address] WBC 0-5 SEEN Normal 0-5 [facility] Comment on above: Order Comment: COLOR OF URINE MAY AFFECT DIPSTICK RESULTS.CHERRY PICKER OPERATOR TO SPECIFY Performed By: #### L 400.0001 ####[facility] [address] [place], [place], [address] Urine blood detectionOrdered By: Darrin Mata on 06-25-2024 Urine Occult Blood 250 /ul High Negative [facility] Urine clarityOrdered By: Tristen Mata on 06-25-2024 Clarity (U) Cloudy Clear [facility] Urine color determinationOrd ered By: Darrin Mata on 06-25-2024 Color (U) Brown Yellow [facility] Urine leukocyte esterase det ection by dipstickOrdered By: Darrin Mata on 06-25-2024 Leukocyte esterase Test strip Ql (U) 25 /ul High Negative [facility] Urine pHOrdered By: Darrin Mata on 06-25-2024 pH (U) 6.0 [pH] 5.0 - 8.0 [facility] Urine sediment bacteria coun t by microscopy (number/high power field)Ordered By: Darrin Mata on 06-25-2024 Bacteria LM.HPF (Urine sed) [#/Area] 1 /[HPF] None Seen [facility] Urine specific gravity measu rementOrdered By: Darrin Mata on 06-25-2024 Specific gravity (U) [Rel density] 1.015 1.002-1.03 0 [facility] Urobilinogen Ql (U)Ordered B y: Darrin Mata on 06-25-2024 Urine Urobilinogen Normal mg/dl Normal [facility] White blood cell countOrdere d By: Darrin Mata on 06-25-2024 Urine WBC 0-5 SEEN /hpf 0-5 [facility] CBC W/Diff, Automatedon Absolute Lymph 2.57 X10 3/uL Normal 0.83-4.51 [facility] Comment on above: Performed By: #### L 501.9520, L500.4050, L506.1000, L100.0100 ####[facility] [address] [place], [address] Absolute Neut 4.7 X10 3/uL Normal 2.0-7.7 [facility] Comment on above: Performed By: #### L 501.9520, L500.4050, L506.1000, L100.0100 ####[facility] [address] [place], [address] Basophils/100 WBC (Bld) 0.4 % Normal 0-[address] [facility] Comment on above: Performed By: #### L 501.9520, L500.4050, L506.1000, L100.0100 ####[facility] [address] [place], [address] Eosinophils/100 WBC (Bld) 1.8 % Normal 0-5 [facility] Comment on above: Performed By: #### L 501.9520, L500.4050, L506.1000, L100.0100 ####[facility] [address] [place], [address] Erythrocyte distribution width (RBC) [Ratio] 13.0 % Normal 11.6-14.6 [facility] Comment on above: Performed By: #### L 501.9520, L500.4050, L506.1000, L100.0100 ####[facility] [address] [place], [address] Hematocrit (Bld) [Volume fraction] 44.2 % Normal 40-54 [facility] Comment on above: Performed By: #### L 501.9520, L500.4050, L506.1000, L100.0100 ####[facility] [address] [place], [address] Hemoglobin (Bld) [Mass/Vol] 14.9 g/dL Normal 13.0-16. 5 [facility] Comment on above: Performed By: #### L 501.9520, L500.4050, L506.1000, L100.0100 ####[facility] [address] [place], [address] IG% 1.200 High 0.0-0.9 [facility] Comment on above: Result Comment: IG% - Immature Granulocytes (promyelocytes, myelocytes andmetamyelocytes) > 1% indicates that a LEFT SHIFT is Present. Performed By: #### L 501.9520, L500.4050, L506.1000, L100.0100 ####[facility] [address] [place], [address] Lymphocytes/100 WBC (Bld) 31.6 % Normal 19-41 [facility] Comment on above: Performed By: #### L 501.9520, L500.4050, L506.1000, L100.0100 ####[facility] [address] [place], [address] MCH (RBC) [Entitic mass] 33.0 pg High 27.0-32.0 [facility] Comment on above: Performed By: #### L 501.9520, L500.4050, L506.1000, L100.0100 ####[facility] [address] [place], [address] MCHC (RBC) [Mass/Vol] 33.7 g/dL Normal 32-36 [facility] Comment on above: Performed By: #### L 501.9520, L500.4050, L506.1000, L100.0100 ####[facility] [address] [place], [address] MCV (RBC) [Entitic vol] 97.8 fL High 80-[address] [facility] Comment on above: Performed By: #### L 501.9520, L500.4050, L506.1000, L100.0100 ####[facility] [address] [place], [address] Monocytes/100 WBC (Bld) 7.7 % Normal 0-[address] [facility] Comment on above: Performed By: #### L 501.9520, L500.4050, L506.1000, L100.0100 ####[facility] [address] [place], [address] Neutrophils/100 WBC (Bld) 57.3 % Normal 47-70 [facility] Comment on above: Performed By: #### L 501.9520, L500.4050, L506.1000, L100.0100 ####[facility] [address] [place], [address] Nucleated RBC (Bld) [#/Vol] 0 10*3/uL Normal 0-5 [facility] Comment on above: Performed By: #### L 501.9520, L500.4050, L506.1000, L100.0100 ####[facility] [address] [place], [address] Platelet mean volume (Bld) [Entitic vol] 9.4 fL Normal 6.2-12.0 [facility] Comment on above: Performed By: #### L 501.9520, L500.4050, L506.1000, L100.0100 ####[facility] [address] [place], [address] Platelets (Bld) [#/Vol] 362 10*3/uL Normal 150-450 [facility] Comment on above: Performed By: #### L 501.9520, L500.4050, L506.1000, L100.0100 ####[facility] [address] [place], [address] RBC (Bld) [#/Vol] 4.52 10*6/uL Low 4.6-6.2 [facility] Comment on above: Performed By: #### L 501.9520, L500.4050, L506.1000, L100.0100 ####[facility] [address] [place], [address] RDW SD 46.6 fl High 35.1-43.9 [facility] Comment on above: Performed By: #### L 501.9520, L500.4050, L506.1000, L100.0100 ####[facility] [address] [place], [address] WBC (Bld) [#/Vol] 8.1 10*3/uL Normal 4.4-11.0 [facility] Comment on above: Performed By: #### L 501.9520, L500.4050, L506.1000, L100.0100 ####[facility] [address] [place], [address] Comprehensive Metabolic [facility] 06-13-2024 Albumin [Mass/Vol] 4.3 g/dL Normal 3.2-5.0 [facility] Comment on above: Performed By: #### L 501.9520, L500.4050, L506.1000, L100.0100 ####[facility] [address] [place], [address] Albumin/Globulin [Mass ratio] 1.3 {ratio} Normal 0.9-2.4 [facility] Comment on above: Performed By: #### L 501.9520, L500.4050, L506.1000, L100.0100 ####[facility] [address] [place], [address] ALK P 73 U/L Normal 45-117 [facility] Comment on above: Performed By: #### L 501.9520, L500.4050, L506.1000, L100.0100 ####[facility] [address] [place], [address] ALT [Catalytic activity/Vol] 15 U/L Low 16-61 [facility] Comment on above: Performed By: #### L 501.9520, L500.4050, L506.1000, L100.0100 ####[facility] [address] [place], [address] AST [Catalytic activity/Vol] 11 U/L Low 15-37 [facility] Comment on above: Performed By: #### L 501.9520, L500.4050, L506.1000, L100.0100 ####[facility] [address] [place], [address] Bilirubin [Mass/Vol] 1.50 mg/dL High 0.20-1.00 [facility] Comment on above: Result Comment: For patients on eltrombopag therapy, use of Dimension Remlap TBIL is not recommended. Performed By: #### L 501.9520, L500.4050, L506.1000, L100.0100 ####[facility] [address] [place], [address] BUN/CRE 22.5 RATIO High 10-20 [facility] Comment on above: Performed By: #### L 501.9520, L500.4050, L506.1000, L100.0100 ####[facility] [address] [place], [address] CA,Total 9.6 mg/dL Normal 8.5-10.1 [facility] Comment on above: Performed By: #### L 501.9520, L500.4050, L506.1000, L100.0100 ####[facility] [address] [place], [address] Chloride [Moles/Vol] 108 mmol/L High 98-107 [facility] Comment on above: Performed By: #### L 501.9520, L500.4050, L506.1000, L100.0100 ####[facility] [address] [place], [address] CO2 [Moles/Vol] 25.0 mmol/L Normal 21.0-32.0 [facility] Comment on above: Performed By: #### L 501.9520, L500.4050, L506.1000, L100.0100 ####[facility] [address] [place], [address] Creatinine [Mass/Vol] 1.20 mg/dL Normal 0.70-1.30 [facility] Comment on above: Result Comment: The validity of the calculated GFR GFRAA in patients over70 years has not been determined. Clinical correlation isessential. Performed By: #### L [id number], [id number], L506.1000, L100.0100 ####[facility] [address] [place], [address] EST GFR - AA 76 mL/min Normal >60 [facility] Comment on above: Result Comment: Afri can [place] GFR Calc Performed By: #### L [id number], [id number], L506.1000, L100.0100 ####[facility] [address] [place], [address] GAP 8 Normal 5-15 [facility] Comment on above: Performed By: #### L [id number], [id number], L506.1000, L100.0100 ####[facility] [address] [place], [address] GFR/1.73 sq M.predicted among non-blacks MDRD (S/P/Bld) [Vol rate/Area] 63 mL/min/{1.73_m2} Normal >60 [facility] Comment on above: Result Comment: Non- GFR Calc Performed By: #### L [id number], [id number], L506.1000, L100.0100 ####[facility] [address] [place], [address] Globulin (S) [Mass/Vol] 3.2 g/dL Normal 2.2-4.[address] [facility] Comment on above: Performed By: #### L [id number], [id number], L506.1000, L100.0100 ####[facility] [address] [place], [address] Glucose [Mass/Vol] 181 mg/dL High 74-106 [facility] Comment on above: Result Comment: Fast ing Glucose result greater than or equal to 126 mg/dLsuggests DIABETES MELLITUS per A.D.A. criteria. Performed By: #### L [id number], [id number], L506.1000, L100.0100 ####[facility] [address] [place], [address] Potassium [Moles/Vol] 3.8 mmol/L Normal 3.5-5.1 [facility] Comment on above: Performed By: #### L [id number], [id number], L506.1000, L100.0100 ####[facility] [address] [place], [address] Sodium [Moles/Vol] 140 mmol/L Normal 136-145 [facility] Comment on above: Performed By: #### L [id number], [id number], L506.1000, L100.0100 ####[facility] [address] [place], [address] T PROT 7.5 g/dL Normal 6.4-8.2 [facility] Comment on above: Performed By: #### L [id number], [id number], L506.1000, L100.0100 ####[facility] [address] [place], [address] Urea nitrogen [Mass/Vol] 27 mg/dL High 7-18 [facility] Comment on above: Performed By: #### L [id number], [id number], L506.1000, L100.0100 ####[facility] [address] [place], [address] Thyroid Stim Hormone (TSH)on 06-13-2024 TSH 1.280 uIU/mL Normal 0.358-3.74 0 [facility] Comment on above: Performed By: #### L [id number], [id number], L506.1000, L100.0100 ####[facility] [address] [place], [address] Vitamin D,25 Hydroxyon 06-13 Vitamin D 25-OH 7.7 ng/mL Normal [facility] Comment on above: Result Comment: Raiza min D 25(OH) Status Range Deficiency <20 ng/mL (50nmol/L) Insufficiency 20 - 30 ng/mL (50 - 75 nmol/L) Sufficiency 30 - 100 ng/mL (75 - 250 nmol/L) Toxicity >100 ng/mL (>250 nmol/L) Performed By: #### L [id number], [id number], L506.1000, L100.0100 ####[facility] [address] [place], [address] Absolute lymphocyte countOrd ered By: Mitch Mcwilliams on 11-10-2023 Lymphocytes Auto (Unsp spec) [#/Vol] 1.70 10*3/uL 0.83-4.51 [facility] Automated lymphocyte count a s percentage of total leukocytesOrdered By: Mitch Mcwilliams on 11-10-2023 Lymphocytes/100 WBC Auto (Unsp spec) 29.9 % 19-41 [facility] Basophil percentageOrdered B y: Mitch Mcwilliams on 11-10-2023 Basophils/100 WBC (Bld) 0.5 % 0-[address] [facility] Bilirubin [Mass/Vol] 1.20 mg/dL 0.20-1.00 [facility] Comment on above: For patients on eltr ombopag therapy, use of Dimension Remlap TBIL is not recommended. Chloride [Moles/Vol] 108 mmol/L 98-107 [facility] Eosinophils/100 WBC (Bld) 2.1 % 0-5 [facility] Glucose [Mass/Vol] 150 mg/dL 74-106 [facility] Comment on above: Fasting Glucose resu lt greater than or equal to 126 mg/dL suggests DIABETES MELLITUS per A.D.A. criteria. Hemoglobin (Bld) [Mass/Vol] 14.1 g/dL 13.0-16. 5 [facility] Monocytes/100 WBC (Bld) 6.7 % 0-[address] [facility] Neutrophils (Bld) [#/Vol] 3.4 10*3/uL 2.0-7.7 [facility] Neutrophils/100 WBC (Bld) 59.9 % 47-70 [facility] Potassium [Moles/Vol] 4.3 mmol/L 3.5-5.1 [facility] Protein [Mass/Vol] 7.2 g/dL 6.4-8.2 [facility] Sodium [Moles/Vol] 140 mmol/L 136-145 [facility] WBC (Bld) [#/Vol] 5.7 10*3/uL 4.4-11.0 [facility] Determination of erythrocyte mean corpuscular volume (MCV)Ordered By: Mitch Mcwilliams on 11-10-2023 MCV (RBC) [Entitic vol] 98.0 fL 80-94 [facility] Erythrocyte distribution wid th ratioOrdered By: Mitch Mcwilliams on 11-10-2023 Erythrocyte distribution width (RBC) [Ratio] 12.9 % 11.6-14.6 [facility] Erythrocyte distribution wid th standard deviationOrdered By: Mitch Mcwilliams on 11-10-2023 Erythrocyte distribution width (RBC) [Entitic vol] 45.7 fL 35.1-43.9 [facility] Hematocrit Auto (Bld) [Volum e fraction]Ordered By: Mitch Mcwilliams on 11-10-2023 Hematocrit (Bld) [Volume fraction] 43.8 % 40-54 [facility] Immature granulocytes/100 WB C Auto (Bld)Ordered By: Mitch Mcwilliams on 11-10-2023 Immature granulocytes/100 WBC (Bld) 0.900 % 0.0-0.9 [facility] Comment on above: IG% - Immature Granu locytes (promyelocytes, myelocytes and metamyelocytes) > 1% indicates that a LEFT SHIFT is Present. Laboratory - Chemistry and C hemistry - challengeOrdered By: Mitch Mcwilliams on 11-10-2023 Albumin/Globulin [Mass ratio] 1.2 {ratio} 0.9-2.4 [facility] ALP [Catalytic activity/Vol] 77 U/L 45-117 [facility] ALT [Catalytic activity/Vol] 18 U/L 16-61 [facility] CO2 [Moles/Vol] 28.0 mmol/L 21.0-32.0 [facility] Globulin (S) [Mass/Vol] 3.2 g/dL 2.2-4.[address] [facility] Urea nitrogen/Creatinine [Mass ratio] 16.4 mg/mg 10-20 [facility] Laboratory - Hematology and Cell countsOrdered By: Mitch Mcwilliams on 11-10-2023 MCH (RBC) [Entitic mass] 31.5 pg 27.0-32.0 [facility] MCHC (RBC) [Mass/Vol] 32.2 g/dL 32-36 [facility] Nucleated RBC/100 WBC (Bld) [Ratio] 0 % 0-5 [facility] Platelet mean volume (Bld) [Entitic vol] 9.6 fL 6.2-12.0 [facility] Platelets (Bld) [#/Vol] 317 10*3/uL 150-450 [facility] No Panel InformationOrdered By: Mitch Mcwilliams on 11-10-2023 Estimated GFR (MDRD) Amer 70 mL/min >60 [facility] Comment on above: GFR Calc Estimated GFR (MDRD) Non-Af Amer 58 mL/min >60 [facility] Comment on above: Non- GFR Calc Vitamin D 25-Hydroxy 9.7 ng/mL [facility] Comment on above: Vitamin D 25(OH) Sta tus Range Deficiency <20 ng/mL (50nmol/L) Insufficiency 20 - 30 ng/mL (50 - 75 nmol/L) Sufficiency 30 - 100 ng/mL (75 - 250 nmol/L) Toxicity >100 ng/mL (>250 nmol/L) RBC Auto (Bld) [#/Vol]Ordere d By: Mitch Mcwilliams on 11-10-2023 RBC (Bld) [#/Vol] 4.47 10*6/uL 4.6-6.2 [facility] Serum or plasma calcium yin urement (mass/volume)Ordered By: Mitch Mcwilliams on 11-10-2023 Calcium [Mass/Vol] 9.2 mg/dL 8.5-10.1 [facility] Serum or plasma creatinine m easurement (mass/volume)Ordered By: Mitch Mcwilliams on 11-10-2023 Creatinine [Mass/Vol] 1.28 mg/dL 0.70-1.30 [facility] Comment on above: The validity of the calculated GFR & GFRAA in patients over 70 years has not been determined. Clinical correlation is essential. Serum or plasma thyroid stim ulating hormone (TSH) measurement (units/volume)Ordered By: Mitch Mcwilliams on 11-10-2023 TSH Qn 1.23 uIU/mL 0.358-3.74 [facility] Serum or plasma urea nitroge n measurement (mass/volume)Ordered By: Mitch Mcwilliams on 11-10-2023 Urea nitrogen [Mass/Vol] 21 mg/dL 7-18 [facility] Thin prep Papanicolaou smear with manual screeningOrdered By: Mitch Mcwilliams on 11-10-2023 Thin prep Papanicolaou smear with manual screening 4.0 g/dL 3.2-5.0 [facility] Thin prep Papanicolaou smear with manual screening 11 U/L 15-37 [facility] Thin prep Papanicolaou smear with manual screening 4 5-15 [facility] No Panel InformationOrdered By: Porsha Alfaro on 07-11-2023 Prostate Specific Antigen Screen 0.56 ng/mL 0.00-4.00 [facility] Comment on above: This test was perfor med using the TPSA assay method for theDimension chemistry system. Values obtained with differentassay methods cannot be used interchangably.When changing PSA assays in the course of monitoring apatient, additional sequential testing should be carriedout to confirm baseline values. Absolute lymphocyte countOrd ered By: Mitch Mcwilliams on 05-10-2023 Lymphocytes Auto (Unsp spec) [#/Vol] 1.70 10*3/uL 0.83-4.51 [facility] Basophil percentageOrdered B y: Mitch Mcwilliams on 05-10-2023 Basophils/100 WBC (Bld) 0.3 % 0-[address] [facility] Bilirubin [Mass/Vol] 0.90 mg/dL 0.20-1.00 [facility] Comment on above: For patients on eltr ombopag therapy, use of Dimension Remlap TBIL is not recommended. Chloride [Moles/Vol] 110 mmol/L 98-107 [facility] Eosinophils/100 WBC (Bld) 2.0 % 0-5 [facility] Glucose [Mass/Vol] 135 mg/dL 74-106 [facility] Comment on above: Fasting Glucose resu lt greater than or equal to 126 mg/dL suggests DIABETES MELLITUS per A.D.A. criteria. Neutrophils (Bld) [#/Vol] 3.9 10*3/uL 2.0-7.7 [facility] Neutrophils/100 WBC (Bld) 63.4 % 47-70 [facility] Potassium [Moles/Vol] 4.3 mmol/L 3.5-5.1 [facility] Protein [Mass/Vol] 6.9 g/dL 6.4-8.2 [facility] Sodium [Moles/Vol] 143 mmol/L 136-145 [facility] WBC (Bld) [#/Vol] 6.1 10*3/uL 4.4-11.0 [facility] Blood erythrocytes count (nu mber/volume)Ordered By: Mitch Mcwilliams on 05-10-2023 RBC (Bld) [#/Vol] 4.27 10*6/uL 4.6-6.2 [facility] Blood hemoglobin measurement (mass/volume)Ordered By: Mitch Mcwilliams on 05-10-2023 Hemoglobin (Bld) [Mass/Vol] 13.4 g/dL 13.0-16. 5 [facility] Blood lymphocytes/100 leukoc ytesOrdered By: Mitch Mcwilliams on 05-10-2023 Lymphocytes/100 WBC (Bld) 27.8 % 19-41 [facility] Blood monocytes/100 leukocyt esOrdered By: Mitch Mcwilliams on 05-10-2023 Monocytes/100 WBC (Bld) 6.0 % 0-[address] [facility] Blood platelet mean volumeOr dered By: Mitch Mcwilliams on 05-10-2023 Platelet mean volume (Bld) [Entitic vol] 9.6 fL 6.2-12.0 [facility] Determination of erythrocyte mean corpuscular volume (MCV)Ordered By: Mitch Mcwilliams on 05-10-2023 MCV (RBC) [Entitic vol] 98.1 fL 80-[address] [facility] Hematocrit Auto (Bld) [Volum e fraction]Ordered By: [facility] on 05-10-2023 Hematocrit (Bld) [Volume fraction] 41.9 % 40-54 [facility] Laboratory - Chemistry and C hemistry - challengeOrdered By: [facility] ALP [Catalytic activity/Vol] 84 U/L 45-117 [facility] ALT [Catalytic activity/Vol] 19 U/L 16-61 [facility] CO2 [Moles/Vol] 28.0 mmol/L 21.0-32.0 [facility] Globulin (S) [Mass/Vol] 3.1 g/dL 2.2-4.2 [facility] Urea nitrogen/Creatinine [Mass ratio] 22.6 mg/mg 10-20 [facility] Laboratory - Hematology and Cell countsOrdered By: Mitch Mcwilliams on 05-10-2023 Erythrocyte distribution width (RBC) [Entitic vol] 45.3 fL 35.1-43.9 [facility] Erythrocyte distribution width (RBC) [Ratio] 12.7 % 11.6-14.6 [facility] Immature granulocytes/100 WBC (Bld) 0.500 % 0.0-0.9 [facility] Comment on above: IG% - Immature Granu locytes (promyelocytes, myelocytes and metamyelocytes) > 1% indicates that a LEFT SHIFT is Present. MCH (RBC) [Entitic mass] 31.4 pg 27.0-32.0 [facility] Nucleated RBC/100 WBC (Bld) [Ratio] 0 % 0-5 [facility] MCHC Auto (RBC) [Mass/Vol]Or dered By: Mitch Mcwilliams on 05-10-2023 MCHC (RBC) [Mass/Vol] 32.0 g/dL 32-36 [facility] No Panel InformationOrdered By: Mitch Mcwilliams on 05-10-2023 Estimated GFR (MDRD) Amer 80 mL/min >60 [facility] Comment on above: GFR Calc Estimated GFR (MDRD) Non-Af Amer 66 mL/min >60 [facility] Comment on above: Non- GFR Calc Thyroid Stimulating Hormone (TSH) 1.42 uIU/mL 0.358-3.74 [facility] Vitamin D 25-Hydroxy 24.9 ng/mL [facility] Comment on above: Vitamin D 25(OH) Sta tus Range Deficiency <20 ng/mL (50nmol/L) Insufficiency 20 - 30 ng/mL (50 - 75 nmol/L) Sufficiency 30 - 100 ng/mL (75 - 250 nmol/L) Toxicity >100 ng/mL (>250 nmol/L) Platelets bldOrdered By: Mitch Mcwilliams on 05-10-2023 Platelets (Bld) [#/Vol] 258 10*3/uL 150-450 [facility] Serum or plasma albumin yin urement (mass/volume)Ordered By: Mitch Mcwilliams on 05-10-2023 Albumin [Mass/Vol] 3.8 g/dL 3.2-5.0 [facility] Serum or plasma albumin/glob ulin mass ratioOrdered By: Mitch Mcwilliams on 05-10-2023 Albumin/Globulin [Mass ratio] 1.2 {ratio} 0.9-2.4 [facility] Serum or plasma calcium yin urement (mass/volume)Ordered By: Mitch Mcwilliams on 05-10-2023 Calcium [Mass/Vol] 8.8 mg/dL 8.5-10.1 [facility] Serum or plasma creatinine m easurement (mass/volume)Ordered By: Mitch Mcwilliams on 05-10-2023 Creatinine [Mass/Vol] 1.15 mg/dL 0.70-1.30 [facility] Comment on above: The validity of the calculated GFR & GFRAA in patients over 70 years has not been determined. Clinical correlation is essential. Serum or plasma urea nitroge n measurement (mass/volume)Ordered By: Mitch Mcwilliams on 05-10-2023 Urea nitrogen [Mass/Vol] 26 mg/dL 7-18 [facility] Thin prep Papanicolaou smear with manual screeningOrdered By: Mitch Mcwilliams on 05-10-2023 Thin prep Papanicolaou smear with manual screening 11 U/L 15-37 [facility] Thin prep Papanicolaou smear with manual screening 5 5-15 [facility] Absolute lymphocyte countOrd ered By: Dr. Mcwilliams on 10-28-2022 Lymphocytes Auto (Unsp spec) [#/Vol] 1.67 10*3/uL 0.83-4.51 [facility] Basophil percentageOrdered B y: Dr. Mcwilliams on 10-28-2022 Basophils/100 WBC (Bld) 0.6 % 0-[address] [facility] Bilirubin [Mass/Vol] 1.20 mg/dL 0.20-1.00 [facility] Comment on above: For patients on eltr ombopag therapy, use of Dimension Remlap TBIL is not recommended. Chloride [Moles/Vol] 107 mmol/L 98-107 [facility] Eosinophils/100 WBC (Bld) 1.1 % 0-5 [facility] Glucose [Mass/Vol] 194 mg/dL 74-106 [facility] Comment on above: Fasting Glucose resu lt greater than or equal to 126 mg/dL suggests DIABETES MELLITUS per A.D.A. criteria. Neutrophils (Bld) [#/Vol] 3.2 10*3/uL 2.0-7.7 [facility] Neutrophils/100 WBC (Bld) 59.3 % 47-70 [facility] Potassium [Moles/Vol] 4.0 mmol/L 3.5-5.1 [facility] Protein [Mass/Vol] 7.0 g/dL 6.4-8.2 [facility] Sodium [Moles/Vol] 141 mmol/L 136-145 [facility] WBC (Bld) [#/Vol] 5.4 10*3/uL 4.4-11.0 [facility] Blood erythrocytes count (nu mber/volume)Ordered By: Dr. Mcwilliams on 10-28-2022 RBC (Bld) [#/Vol] 4.35 10*6/uL 4.6-6.2 [facility] Blood hemoglobin measurement (mass/volume)Ordered By: Dr. Mcwilliams on 10-28-2022 Hemoglobin (Bld) [Mass/Vol] 13.8 g/dL 13.0-16. 5 [facility] Blood lymphocytes/100 leukoc ytesOrdered By: Dr. Mcwilliams on 10-28-2022 Lymphocytes/100 WBC (Bld) 31.0 % 19-41 [facility] Blood monocytes/100 leukocyt esOrdered By: Dr. Mcwilliams on 10-28-2022 Monocytes/100 WBC (Bld) 7.4 % 0-[address] [facility] Blood platelet mean volumeOr dered By: Dr. Mcwilliams on 10-28-2022 Platelet mean volume (Bld) [Entitic vol] 10.0 fL 6.2-12.0 [facility] Determination of erythrocyte mean corpuscular volume (MCV)Ordered By: Dr. Mcwilliams on 10-28-2022 MCV (RBC) [Entitic vol] 95.9 fL 80-[address] [facility] Hematocrit Auto (Bld) [Volum e fraction]Ordered By: Dr. Mcwilliams on 10-28-2022 Hematocrit (Bld) [Volume fraction] 41.7 % 40-54 [facility] Laboratory - Chemistry and C hemistry - challengeOrdered By: Dr. Mcwilliams on 10-28-2022 ALP [Catalytic activity/Vol] 81 U/L 45-117 [facility] ALT [Catalytic activity/Vol] 19 U/L 16-61 [facility] CO2 [Moles/Vol] 22.0 mmol/L 21.0-32.0 [facility] Globulin (S) [Mass/Vol] 3.2 g/dL 2.2-4.2 [facility] Urea nitrogen/Creatinine [Mass ratio] 21.1 mg/mg 10-20 [facility] Laboratory - Hematology and Cell countsOrdered By: Dr. Mcwilliams on 10-28-2022 Erythrocyte distribution width (RBC) [Entitic vol] 48.3 fL 35.1-43.9 [facility] Erythrocyte distribution width (RBC) [Ratio] 13.5 % 11.6-14.6 [facility] Immature granulocytes/100 WBC (Bld) 0.600 % 0.0-0.9 [facility] Comment on above: IG% - Immature Granu locytes (promyelocytes, myelocytes and metamyelocytes) > 1% indicates that a LEFT SHIFT is Present. MCH (RBC) [Entitic mass] 31.7 pg 27.0-32.0 [facility] Nucleated RBC/100 WBC (Bld) [Ratio] 0 % 0-5 [facility] MCHC Auto (RBC) [Mass/Vol]Or dered By: Dr. Mcwilliams on 10-28-2022 MCHC (RBC) [Mass/Vol] 33.1 g/dL 32-36 [facility] No Panel InformationOrdered By: Dr. Mcwilliams on 10-28-2022 Estimated GFR (MDRD) Amer 74 mL/min >60 [facility] Comment on above: GFR Calc Estimated GFR (MDRD) Non-Af Amer 61 mL/min >60 [facility] Comment on above: Non- GFR Calc Thyroid Stimulating Hormone (TSH) 1.04 uIU/mL 0.358-3.74 [facility] Vitamin D 25-Hydroxy 15.2 ng/mL [facility] Comment on above: Vitamin D 25(OH) Sta tus Range Deficiency <20 ng/mL (50nmol/L) Insufficiency 20 - 30 ng/mL (50 - 75 nmol/L) Sufficiency 30 - 100 ng/mL (75 - 250 nmol/L) Toxicity >100 ng/mL (>250 nmol/L) Platelets bldOrdered By: Dr. Mcwilliams on 10-28-2022 Platelets (Bld) [#/Vol] 291 10*3/uL 150-450 [facility] Serum or plasma albumin yin urement (mass/volume)Ordered By: Dr. Mcwilliams on 10-28-2022 Albumin [Mass/Vol] 3.8 g/dL 3.2-5.0 [facility] Serum or plasma albumin/glob ulin mass ratioOrdered By: Dr. Mcwilliams on 10-28-2022 Albumin/Globulin [Mass ratio] 1.2 {ratio} 0.9-2.4 [facility] Serum or plasma calcium yin urement (mass/volume)Ordered By: Dr. Mcwilliams on 10-28-2022 Calcium [Mass/Vol] 9.1 mg/dL 8.5-10.1 [facility] Serum or plasma creatinine m easurement (mass/volume)Ordered By: Dr. Mcwilliams on 10-28-2022 Creatinine [Mass/Vol] 1.23 mg/dL 0.70-1.30 [facility] Comment on above: The validity of the calculated GFR & GFRAA in patients over 70 years has not been determined. Clinical correlation is essential. Serum or plasma urea nitroge n measurement (mass/volume)Ordered By: Dr. Mcwilliams on 10-28-2022 Urea nitrogen [Mass/Vol] 26 mg/dL 7-18 [facility] Thin prep Papanicolaou smear with manual screeningOrdered By: Dr. Mcwilliams on 10-28-2022 Thin prep Papanicolaou smear with manual screening 15 U/L 15-37 [facility] Thin prep Papanicolaou smear with manual screening 12 5-15 [facility] Throat Streptococcus pyogene s antigen detection by immunofluorescenceOrdered By: Dr. Sarabia on 08-13-2022 S. pyogenes Ag IF Ql (Throat) [facility] Absolute lymphocyte countOrd ered By: ED PROVIDER on 08-10-2022 Lymphocytes Auto (Unsp spec) [#/Vol] 0.64 10*3/uL 0.83-4.51 [facility] Basophil percentageOrdered B y: ED PROVIDER on 08-10-2022 Basophils/100 WBC (Bld) 0.2 % 0-1 [facility] Chloride [Moles/Vol] 103 mmol/L 98-107 [facility] Eosinophils/100 WBC (Bld) 0.0 % 0-5 [facility] Glucose [Mass/Vol] 155 mg/dL 74-106 [facility] Comment on above: Fasting Glucose resu lt greater than or equal to 126 mg/dL suggests DIABETES MELLITUS per A.D.A. criteria. Neutrophils (Bld) [#/Vol] 3.8 10*3/uL 2.0-7.7 [facility] Neutrophils/100 WBC (Bld) 73.7 % 47-70 [facility] Potassium [Moles/Vol] 3.8 mmol/L 3.5-5.1 [facility] Sodium [Moles/Vol] 135 mmol/L 136-145 [facility] WBC (Bld) [#/Vol] 5.2 10*3/uL 4.4-11.0 [facility] Blood erythrocytes count (nu mber/volume)Ordered By: ED PROVIDER on 08-10-2022 RBC (Bld) [#/Vol] 4.52 10*6/uL 4.6-6.2 [facility] Blood hemoglobin measurement (mass/volume)Ordered By: ED PROVIDER on 08-10-2022 Hemoglobin (Bld) [Mass/Vol] 13.9 g/dL 13.0-16. 5 [facility] Blood lymphocytes/100 leukoc ytesOrdered By: ED PROVIDER on 08-10-2022 Lymphocytes/100 WBC (Bld) 12.3 % 19-41 [facility] Blood monocytes/100 leukocyt esOrdered By: ED PROVIDER on 08-10-2022 Monocytes/100 WBC (Bld) 13.4 % 0-[address] [facility] Blood platelet mean volumeOr dered By: ED PROVIDER on 08-10-2022 Platelet mean volume (Bld) [Entitic vol] 9.6 fL 6.2-12.0 [facility] Determination of erythrocyte mean corpuscular volume (MCV)Ordered By: ED PROVIDER on 08-10-2022 MCV (RBC) [Entitic vol] 93.8 fL 80-[address] [facility] Hematocrit Auto (Bld) [Volum e fraction]Ordered By: ED PROVIDER on 08-10-2022 Hematocrit (Bld) [Volume fraction] 42.4 % 40-54 [facility] Influenza virus A and B and SARS-CoV-2 (COVID-19) Ag panel - Upper respiratory specimOrdered By: ED PROVIDER on 08-10-2022 SARS-CoV-2 & FLU Antigen (Rapid) SARS-CoV-2 (COVID 19) [facility] Laboratory - Chemistry and C hemistry - challengeOrdered By: ED PROVIDER on 08-10-2022 CO2 [Moles/Vol] 25.0 mmol/L 21.0-32.0 [facility] Urea nitrogen/Creatinine [Mass ratio] 24.0 mg/mg 10-20 [facility] Laboratory - Hematology and Cell countsOrdered By: ED PROVIDER on 08-10-2022 Erythrocyte distribution width (RBC) [Entitic vol] 47.2 fL 35.1-43.9 [facility] Erythrocyte distribution width (RBC) [Ratio] 13.7 % 11.6-14.6 [facility] Immature granulocytes/100 WBC (Bld) 0.400 % 0.0-0.9 [facility] Comment on above: IG% - Immature Granu locytes (promyelocytes, myelocytes and metamyelocytes) > 1% indicates that a LEFT SHIFT is Present. MCH (RBC) [Entitic mass] 30.8 pg 27.0-32.0 [facility] Nucleated RBC/100 WBC (Bld) [Ratio] 0 % 0-5 [facility] MCHC Auto (RBC) [Mass/Vol]Or dered By: ED PROVIDER on 08-10-2022 MCHC (RBC) [Mass/Vol] 32.8 g/dL 32-36 [facility] No Panel InformationOrdered By: ED PROVIDER on 08-10-2022 Estimated Creatinine Clearance Calc 50.92 ml/min [facility] Estimated GFR (MDRD) Amer 73 mL/min >60 [facility] Comment on above: GFR Calc Estimated GFR (MDRD) Non-Af Amer 60 mL/min >60 [facility] Comment on above: Non- GFR Calc Platelets bldOrdered By: ED PROVIDER on 08-10-2022 Platelets (Bld) [#/Vol] 224 10*3/uL 150-450 [facility] Serum or plasma calcium yin urement (mass/volume)Ordered By: ED PROVIDER on 08-10-2022 Calcium [Mass/Vol] 8.5 mg/dL 8.5-10.1 [facility] Serum or plasma creatinine m easurement (mass/volume)Ordered By: ED PROVIDER on 08-10-2022 Creatinine [Mass/Vol] 1.25 mg/dL 0.70-1.30 [facility] Comment on above: The validity of the calculated GFR & GFRAA in patients over 70 years has not been determined. Clinical correlation is essential. Serum or plasma urea nitroge n measurement (mass/volume)Ordered By: ED PROVIDER on 08-10-2022 Urea nitrogen [Mass/Vol] 30 mg/dL 7-18 [facility] Thin prep Papanicolaou smear with manual screeningOrdered By: ED PROVIDER on 08-10-2022 Thin prep Papanicolaou smear with manual screening 7 5-15 [facility] No Panel Informationon 06-24 Prostate Specific Antigen Screen 0.49 ng/mL 0.00-4.00 [facility] Work Phone: Comment on above: This test was perfor med using the TPSA assay method for the[employer] chemistry system. Values obtained with differentassay methods cannot be used interchangably.When changing PSA assays in the course of monitoring apatient, additional sequential testing should be carriedout to confirm baseline values. Absolute lymphocyte counton 04-29-2022 Lymphocytes Auto (Unsp spec) [#/Vol] 2.15 10*3/uL 0.83-4.51 [facility] Work Phone: Basophil percentageon 2021 Basophils/100 WBC (Bld) 0.4 % 0-[address] [facility] Work Phone: Bilirubin [Mass/Vol] 1.10 mg/dL 0.20-1.00 [facility] Work Phone: Comment on above: For patients on eltr ombopag therapy, use of Dimension Remlap TBIL is not recommended. Chloride [Moles/Vol] 105 mmol/L 98-107 [facility] Work Phone: Eosinophils/100 WBC (Bld) 1.4 % 0-5 [facility] Work Phone: Glucose [Mass/Vol] 148 mg/dL 74-106 [facility] Work Phone: Comment on above: Fasting Glucose resu lt greater than or equal to 126 mg/dL suggests DIABETES MELLITUS per A.D.A. criteria. Neutrophils (Bld) [#/Vol] 4.3 10*3/uL 2.0-7.7 [facility] Work Phone: Neutrophils/100 WBC (Bld) 60.1 % 47-70 [facility] Work Phone: Potassium [Moles/Vol] 3.8 mmol/L 3.5-5.1 [facility] Work Phone: Protein [Mass/Vol] 7.0 g/dL 6.4-8.2 [facility] Work Phone: Sodium [Moles/Vol] 141 mmol/L 136-145 [facility] Work Phone: Testosterone [Mass/Vol] 371.34 ng/dL [facility] Work Phone: Comment on above: CENTRAL 90% REFERENC E RANGES MALE AGE <50 197.44 - 669.58 ng/dL MALE AGE > or = 50 187.72 - 684.19 ng/dL FEMALE AGE <50 8.38 - 35.01 ng/dL FEMALE AGE > or = 50 <7.00 - 35.92 ng/dL Effective as of 03/03/21 WBC (Bld) [#/Vol] 7.2 10*3/uL 4.4-11.0 [facility] Work Phone: Blood erythrocytes count (nu mber/volume)on 04-29-2022 RBC (Bld) [#/Vol] 4.81 10*6/uL 4.6-6.2 [facility] Work Phone: Blood hemoglobin measurement (mass/volume)on 04-29-2022 Hemoglobin (Bld) [Mass/Vol] 14.7 g/dL 13.0-16. 5 [facility] Work Phone: Blood lymphocytes/100 leukoc yteson 04-29-2022 Lymphocytes/100 WBC (Bld) 29.8 % 19-41 [facility] Work Phone: Blood monocytes/100 leukocyt eson 04-29-2022 Monocytes/100 WBC (Bld) 7.5 % 0-[address] [facility] Work Phone: Blood platelet mean volumeon 04-29-2022 Platelet mean volume (Bld) [Entitic vol] 10.1 fL 6.2-12.0 [facility] Work Phone: Determination of erythrocyte mean corpuscular volume (MCV)on 04-29-2022 MCV (RBC) [Entitic vol] 92.7 fL 80-[address] [facility] Work Phone: Hematocrit Auto (Bld) [Volum e fraction]on 04-29-2022 Hematocrit (Bld) [Volume fraction] 44.6 % 40-54 [facility] Work Phone: Laboratory - Chemistry and C hemistry - challengeon 04-29-2022 ALP [Catalytic activity/Vol] 88 U/L 45-117 [facility] Work Phone: ALT [Catalytic activity/Vol] 17 U/L 16-61 [facility] Work Phone: CO2 [Moles/Vol] 26.0 mmol/L 21.0-32.0 [facility] Work Phone: Globulin (S) [Mass/Vol] 3.3 g/dL 2.2-4.[address] [facility] Work Phone: Urea nitrogen/Creatinine [Mass ratio] 22.2 mg/mg 10-20 [facility] Work Phone: Laboratory - Hematology and Cell countson 04-29-2022 Erythrocyte distribution width (RBC) [Entitic vol] 42.2 fL 35.1-43.9 [facility] Work Phone: Erythrocyte distribution width (RBC) [Ratio] 12.3 % 11.6-14.6 [facility] Work Phone: Immature granulocytes/100 WBC (Bld) 0.800 % 0.0-0.9 [facility] Work Phone: Comment on above: IG% - Immature Granu locytes (promyelocytes, myelocytes and metamyelocytes) > 1% indicates that a LEFT SHIFT is Present. MCH (RBC) [Entitic mass] 30.6 pg 27.0-32.0 [facility] Work Phone: Nucleated RBC/100 WBC (Bld) [Ratio] 0 % 0-5 [facility] Work Phone: MCHC Auto (RBC) [Mass/Vol]on 04-29-2022 MCHC (RBC) [Mass/Vol] 33.0 g/dL 32-36 [facility] Work Phone: No Panel Informationon 04-29 Estimated GFR (MDRD) Amer 86 mL/min >60 [facility] Work Phone: Comment on above: GFR Calc Estimated GFR (MDRD) Non-Af Amer 71 mL/min >60 [facility] Work Phone: Comment on above: Non- GFR Calc Thyroid Stimulating Hormone (TSH) 1.26 uIU/mL 0.358-3.74 [facility] Work Phone: Vitamin D 25-Hydroxy 17.3 ng/mL [facility] Work Phone: Comment on above: Vitamin D 25(OH) Sta tus Range Deficiency <20 ng/mL (50nmol/L) Insufficiency 20 - 30 ng/mL (50 - 75 nmol/L) Sufficiency 30 - 100 ng/mL (75 - 250 nmol/L) Toxicity >100 ng/mL (>250 nmol/L) Platelets bldon 04-29-2022 Platelets (Bld) [#/Vol] 310 10*3/uL 150-450 [facility] Work Phone: Serum or plasma albumin yin urement (mass/volume)on 04-29-2022 Albumin [Mass/Vol] 3.7 g/dL 3.2-5.0 [facility] Work Phone: Serum or plasma albumin/glob ulin mass ratioon 04-29-2022 Albumin/Globulin [Mass ratio] 1.1 {ratio} 0.9-2.4 [facility] Work Phone: Serum or plasma calcium yin urement (mass/volume)on 04-29-2022 Calcium [Mass/Vol] 9.2 mg/dL 8.5-10.1 [facility] Work Phone: Serum or plasma creatinine m easurement (mass/volume)on 04-29-2022 Creatinine [Mass/Vol] 1.08 mg/dL 0.70-1.30 [facility] Work Phone: Comment on above: The validity of the calculated GFR & GFRAA in patients over 70 years has not been determined. Clinical correlation is essential. Serum or plasma urea nitroge n measurement (mass/volume)on 04-29-2022 Urea nitrogen [Mass/Vol] 24 mg/dL 7-18 [facility] Work Phone: Thin prep Papanicolaou smear with manual screeningon 04-29-2022 Thin prep Papanicolaou smear with manual screening 10 U/L 15-37 [facility] Work Phone: Thin prep Papanicolaou smear with manual screening 10 5-15 [facility] Work Phone: Glucose Glucometer (BldC) [M ass/Vol]on 12-09-2021 Glucose [Mass/Vol] 121 mg/dL 74-106 [facility] Work Phone: Comment on above: MANAGEMENT OF PATIEN T CARE PER NURSING PROTOCOL Absolute lymphocyte counton 12-08-2021 Lymphocytes Auto (Unsp spec) [#/Vol] 1.75 10*3/uL 0.83-4.51 [facility] Work Phone: Basophil percentageon 2021 Basophils/100 WBC (Bld) 0.1 % 0-[address] [facility] Work Phone: Chloride [Moles/Vol] 106 mmol/L 98-107 [facility] Work Phone: Eosinophils/100 WBC (Bld) 1.6 % 0-5 [facility] Work Phone: Glucose [Mass/Vol] 113 mg/dL 74-106 [facility] Work Phone: Comment on above: Fasting Glucose resu lt from 100 to 125 mg/dL suggests IMPAIRED HOMEOSTASIS per A.D.A. criteria. Neutrophils (Bld) [#/Vol] 7.4 10*3/uL 2.0-7.7 [facility] Work Phone: [phone] Neutrophils/100 WBC (Bld) 73.1 % 47-70 [facility] Work Phone: Potassium [Moles/Vol] 4.9 mmol/L 3.5-5.1 [facility] Work Phone: Sodium [Moles/Vol] 137 mmol/L 136-[facility] Work Phone: WBC (Bld) [#/Vol] 10.1 10*3/uL 4.4-11.0 [facility] Work [facility]: Blood erythrocytes count (nu mber/volume)on 12-08-2021 RBC (Bld) [#/Vol] 4.23 10*6/uL 4.6-6.2 [facility] Work Phone: Blood hemoglobin measurement (mass/volume)on 12-08-2021 Hemoglobin (Bld) [Mass/Vol] 12.8 g/dL 13.0-16. 5 [facility] Work Phone: Blood lymphocytes/100 leukoc yteson 12-08-2021 Lymphocytes/100 WBC (Bld) 17.4 % 19-41 [facility] Work Phone: Blood monocytes/100 leukocyt eson 12-08-2021 Monocytes/100 WBC (Bld) 6.6 % 0-[address] [facility] Work Phone: Blood platelet mean volumeon 12-08-2021 Platelet mean volume (Bld) [Entitic vol] 9.5 fL 6.2-12.0 [facility] Work Phone: Determination of erythrocyte mean corpuscular volume (MCV)on 12-08-2021 MCV (RBC) [Entitic vol] 93.4 fL 80-[address] [facility] Work Phone: Hematocrit Auto (Bld) [Volum e fraction]on 12-08-2021 Hematocrit (Bld) [Volume fraction] 39.5 % 40-54 [facility] Work Phone: Laboratory - Chemistry and C hemistry - challengeon 12-08-2021 CO2 [Moles/Vol] 25.0 mmol/L 21.0-32.0 [facility] Work Phone: Urea nitrogen/Creatinine [Mass ratio] 36.6 mg/mg 10-20 [facility] Work Phone: Laboratory - Hematology and Cell countson 12-08-2021 Erythrocyte distribution width (RBC) [Entitic vol] 44.8 fL 35.1-43.9 [facility] Work Phone: Erythrocyte distribution width (RBC) [Ratio] 13.1 % 11.6-14.6 [facility] Work Phone: Immature granulocytes/100 WBC (Bld) 1.200 % 0.0-0.9 [facility] Work Phone: Comment on above: IG% - Immature Granu locytes (promyelocytes, myelocytes and metamyelocytes) > 1% indicates that a LEFT SHIFT is Present. MCH (RBC) [Entitic mass] 30.3 pg 27.0-32.0 [facility] Work Phone: Nucleated RBC/100 WBC (Bld) [Ratio] 0 % 0-5 [facility] Work Phone: MCHC Auto (RBC) [Mass/Vol]on 12-08-2021 MCHC (RBC) [Mass/Vol] 32.4 g/dL 32-36 [facility] Work Phone: No Panel Informationon 12-08 Estimated Creatinine Clearance Calc 56.83 ml/min [facility] Work Phone: Estimated GFR (MDRD) Amer 83 mL/min >60 [facility] Work Phone: Comment on above: GFR Calc Estimated GFR (MDRD) Non-Af Amer 68 mL/min >60 [facility] Work Phone: Comment on above: Non- GFR Calc Platelets bldon 12-08-2021 Platelets (Bld) [#/Vol] 299 10*3/uL 150-450 [facility] Work Phone: Serum or plasma calcium yin urement (mass/volume)on 12-08-2021 Calcium [Mass/Vol] 8.8 mg/dL 8.5-10.1 [facility] Work Phone: Serum or plasma creatinine m easurement (mass/volume)on 12-08-2021 Creatinine [Mass/Vol] 1.12 mg/dL 0.70-1.30 [facility] Work Phone: Comment on above: The validity of the calculated GFR & GFRAA in patients over 70 years has not been determined. Clinical correlation is essential. Serum or plasma urea nitroge n measurement (mass/volume)on 12-08-2021 Urea nitrogen [Mass/Vol] 41 mg/dL 7-18 [facility] Work Phone: Thin prep Papanicolaou smear with manual screeningon 12-08-2021 Thin prep Papanicolaou smear with manual screening 6 5-15 [facility] Work Phone: Glucose Glucometer (BldC) [M ass/Vol]on 12-01-2021 Glucose [Mass/Vol] 114 mg/dL 74-106 [facility] Work Phone: Comment on above: MANAGEMENT OF PATIEN T CARE PER NURSING PROTOCOL Absolute lymphocyte counton 11-23-2021 Lymphocytes Auto (Unsp spec) [#/Vol] 2.42 10*3/uL 0.83-4.51 [facility] Work Phone: Basophil percentageon 2021 Basophils/100 WBC (Bld) 0.3 % 0-[address] [facility] Work Phone: Chloride [Moles/Vol] 105 mmol/L 98-107 [facility] Work Phone: Eosinophils/100 WBC (Bld) 0.8 % 0-5 [facility] Work Phone: Glucose [Mass/Vol] 153 mg/dL 74-106 [facility] Work Phone: Comment on above: Fasting Glucose resu lt greater than or equal to 126 mg/dL suggests DIABETES MELLITUS per A.D.A. criteria. Neutrophils (Bld) [#/Vol] 8.4 10*3/uL 2.0-7.7 [facility] Work Phone: [phone] Neutrophils/100 WBC (Bld) 71.5 % 47-70 [facility] Work Phone: Potassium [Moles/Vol] 4.2 mmol/L 3.5-5.1 [facility] Work Phone: Sodium [Moles/Vol] 140 mmol/L 136-[facility]: WBC (Bld) [#/Vol] 11.7 10*3/uL 4.4-11.0 [facility] Work Phone: Blood erythrocytes count (nu mber/volume)on 11-23-2021 RBC (Bld) [#/Vol] 4.40 10*6/uL 4.6-6.2 [facility] Work Phone: Blood hemoglobin measurement (mass/volume)on 11-23-2021 Hemoglobin (Bld) [Mass/Vol] 13.6 g/dL 13.0-16. 5 [facility] Work Phone: Blood lymphocytes/100 leukoc yteson 11-23-2021 Lymphocytes/100 WBC (Bld) 20.6 % 19-41 [facility] Work Phone: Blood monocytes/100 leukocyt eson 11-23-2021 Monocytes/100 WBC (Bld) 5.7 % 0-[address] [facility] Work Phone: Blood platelet mean volumeon 11-23-2021 Platelet mean volume (Bld) [Entitic vol] 10.3 fL 6.2-12.0 [facility] Work Phone: Determination of erythrocyte mean corpuscular volume (MCV)on 11-23-2021 MCV (RBC) [Entitic vol] 95.9 fL 80-[address] [facility] Work Phone: Hematocrit Auto (Bld) [Volum e fraction]on 11-23-2021 Hematocrit (Bld) [Volume fraction] 42.2 % 40-54 [facility] Work Phone: Laboratory - Chemistry and C hemistry - challengeon 11-23-2021 CO2 [Moles/Vol] 27.0 mmol/L 21.0-32.0 [facility] Work Phone: Urea nitrogen/Creatinine [Mass ratio] 30.4 mg/mg 10-20 [facility] Work Phone: Laboratory - Hematology and Cell countson 11-23-2021 Erythrocyte distribution width (RBC) [Entitic vol] 46.4 fL 35.1-43.9 [facility] Work Phone: Erythrocyte distribution width (RBC) [Ratio] 13.2 % 11.6-14.6 [facility] Work Phone: Immature granulocytes/100 WBC (Bld) 1.100 % 0.0-0.9 [facility] Work Phone: Comment on above: IG% - Immature Granu locytes (promyelocytes, myelocytes and metamyelocytes) > 1% indicates that a LEFT SHIFT is Present. MCH (RBC) [Entitic mass] 30.9 pg 27.0-32.0 [facility] Work Phone: Nucleated RBC/100 WBC (Bld) [Ratio] 0 % 0-5 [facility] Work Phone: MCHC Auto (RBC) [Mass/Vol]on 11-23-2021 MCHC (RBC) [Mass/Vol] 32.2 g/dL 32-36 [facility] Work Phone: No Panel Informationon 11-23 Estimated Creatinine Clearance Calc 66.45 ml/min [facility] Work Phone: Estimated GFR (MDRD) Amer 96 mL/min >60 [facility] Work Phone: Comment on above: GFR Calc Estimated GFR (MDRD) Non-Af Amer 79 mL/min >60 [facility] Work Phone: Comment on above: Non- GFR Calc Thyroid Stimulating Hormone (TSH) 1.26 uIU/mL 0.358-3.74 [facility] Work Phone: Vitamin D 25-Hydroxy 20.7 ng/mL [facility] Work Phone: Comment on above: Vitamin D 25(OH) Sta tus Range Deficiency <20 ng/mL (50nmol/L) Insufficiency 20 - 30 ng/mL (50 - 75 nmol/L) Sufficiency 30 - 100 ng/mL (75 - 250 nmol/L) Toxicity >100 ng/mL (>250 nmol/L) Platelets bldon 11-23-2021 Platelets (Bld) [#/Vol] 301 10*3/uL 150-450 [facility] Work Phone: Serum or plasma calcium yin urement (mass/volume)on 11-23-2021 Calcium [Mass/Vol] 8.5 mg/dL 8.5-10.1 [facility] Work Phone: Serum or plasma creatinine m easurement (mass/volume)on 11-23-2021 Creatinine [Mass/Vol] 0.99 mg/dL 0.70-1.30 [facility] Work Phone: Comment on above: The validity of the calculated GFR & GFRAA in patients over 70 years has not been determined. Clinical correlation is essential. Serum or plasma urea nitroge n measurement (mass/volume)on 11-23-2021 Urea nitrogen [Mass/Vol] 30 mg/dL 7-18 [facility] Work Phone: Thin prep Papanicolaou smear with manual screeningon 11-23-2021 Thin prep Papanicolaou smear with manual screening 8 5-15 [facility] Work Phone: Glucose Glucometer (BldC) [M ass/Vol]on 11-22-2021 Glucose [Mass/Vol] 165 mg/dL 74-106 [facility] Work Phone: Comment on above: MANAGEMENT OF PATIEN T CARE PER NURSING PROTOCOL Absolute lymphocyte counton 11-17-2021 Lymphocytes Auto (Unsp spec) [#/Vol] 2.12 10*3/uL 0.83-4.51 [facility] Work Phone: Basophil percentageon 2021 Basophils/100 WBC (Bld) 0.3 % 0-[address] [facility] Work Phone: Chloride [Moles/Vol] 110 mmol/L 98-107 [facility] Work [facility]: Eosinophils/100 WBC (Bld) 1.6 % 0-5 [facility] Work Phone: Glucose [Mass/Vol] 114 mg/dL 74-106 [facility] Work Phone: Comment on above: Fasting Glucose resu lt from 100 to 125 mg/dL suggests IMPAIRED HOMEOSTASIS per A.D.A. criteria. Neutrophils (Bld) [#/Vol] 7.9 10*3/uL 2.0-7.7 [facility] Work Phone: Neutrophils/100 WBC (Bld) 71.9 % 47-70 [facility] Work Phone: Potassium [Moles/Vol] 4.5 mmol/L 3.5-5.1 [facility] Work Phone: Sodium [Moles/Vol] 142 mmol/L 136-145 [facility] Work Phone: WBC (Bld) [#/Vol] 10.9 10*3/uL 4.4-11.0 [facility] Work Phone: [phone] Blood erythrocytes count (nu mber/volume)on 11-17-2021 RBC (Bld) [#/Vol] 4.30 10*6/uL 4.6-6.2 [facility] Work Phone: Blood hemoglobin measurement (mass/volume)on 11-17-2021 Hemoglobin (Bld) [Mass/Vol] 13.4 g/dL 13.0-16. 5 [facility] Work Phone: Blood lymphocytes/100 leukoc yteson 11-17-2021 Lymphocytes/100 WBC (Bld) 19.4 % 19-41 [facility] Work Phone: Blood monocytes/100 leukocyt eson 11-17-2021 Monocytes/100 WBC (Bld) 5.9 % 0-[address] [facility] Work Phone: Blood platelet mean volumeon 11-17-2021 Platelet mean volume (Bld) [Entitic vol] 9.6 fL 6.2-12.0 [facility] Work Phone: Determination of erythrocyte mean corpuscular volume (MCV)on 11-17-2021 MCV (RBC) [Entitic vol] 92.3 fL 80-[address] [facility] Work Phone: Hematocrit Auto (Bld) [Volum e fraction]on 11-17-2021 Hematocrit (Bld) [Volume fraction] 39.7 % 40-54 [facility] Work Phone: Laboratory - Chemistry and C hemistry - challengeon 11-17-2021 CO2 [Moles/Vol] 27.0 mmol/L 21.0-32.0 [facility] Work Phone: Urea nitrogen/Creatinine [Mass ratio] 34.3 mg/mg 10-20 [facility] Work Phone: Laboratory - Hematology and Cell countson 11-17-2021 Erythrocyte distribution width (RBC) [Entitic vol] 43.9 fL 35.1-43.9 [facility] Work Phone: Erythrocyte distribution width (RBC) [Ratio] 13.0 % 11.6-14.6 [facility] Work Phone: Immature granulocytes/100 WBC (Bld) 0.900 % 0.0-0.9 [facility] Work Phone: Comment on above: IG% - Immature Granu locytes (promyelocytes, myelocytes and metamyelocytes) > 1% indicates that a LEFT SHIFT is Present. MCH (RBC) [Entitic mass] 31.2 pg 27.0-32.0 [facility] Work Phone: Nucleated RBC/100 WBC (Bld) [Ratio] 0 % 0-5 [facility] Work Phone: MCHC Auto (RBC) [Mass/Vol]on 11-17-2021 MCHC (RBC) [Mass/Vol] 33.8 g/dL 32-36 [facility] Work Phone: No Panel Informationon 11-17 Estimated Creatinine Clearance Calc 60.92 ml/min [facility] Work Phone: Estimated GFR (MDRD) Amer 86 mL/min >60 [facility] Work Phone: Comment on above: GFR Calc Estimated GFR (MDRD) Non-Af Amer 71 mL/min >60 [facility] [facility] Work [facility]: Comment on above: Non- GFR Calc Platelets bldon 11-17-2021 Platelets (Bld) [#/Vol] 343 10*3/uL 150-450 [facility] Work Phone: Serum or plasma calcium yin urement (mass/volume)on 11-17-2021 Calcium [Mass/Vol] 9.5 mg/dL 8.5-10.1 [facility] Work Phone: Serum or plasma creatinine m easurement (mass/volume)on 11-17-2021 Creatinine [Mass/Vol] 1.08 mg/dL 0.70-1.30 [facility] Work Phone: Comment on above: The validity of the calculated GFR & GFRAA in patients over 70 years has not been determined. Clinical correlation is essential. Serum or plasma urea nitroge n measurement (mass/volume)on 11-17-2021 Urea nitrogen [Mass/Vol] 37 mg/dL 7-18 [facility] Work Phone: Thin prep Papanicolaou smear with manual screeningon 11-17-2021 Thin prep Papanicolaou smear with manual screening 5 5-15 [facility] Work Phone: Absolute lymphocyte counton 10-22-2021 Lymphocytes Auto (Unsp spec) [#/Vol] 1.74 10*3/uL 0.83-4.51 [facility] Work Phone: Basophil percentageon 2021 Basophils/100 WBC (Bld) 0.5 % 0-[address] [facility] Work Phone: Bilirubin [Mass/Vol] 0.80 mg/dL 0.20-1.00 [facility] Work Phone: Comment on above: For patients on eltr ombopag therapy, use of Dimension Remlap TBIL is not recommended. Chloride [Moles/Vol] 109 mmol/L 98-107 [facility] Work Phone: Eosinophils/100 WBC (Bld) 1.4 % 0-5 [facility] Work Phone: Glucose [Mass/Vol] 112 mg/dL 74-106 [facility] Work Phone: Comment on above: Fasting Glucose resu lt from 100 to 125 mg/dL suggests IMPAIRED HOMEOSTASIS per A.D.A. criteria. Neutrophils (Bld) [#/Vol] 4.2 10*3/uL 2.0-7.7 [facility] Work Phone: Neutrophils/100 WBC (Bld) 64.1 % 47-70 [facility] Work Phone: [phone] Potassium [Moles/Vol] 4.1 mmol/L 3.5-5.1 [facility] Work Phone: Protein [Mass/Vol] 6.9 g/dL 6.4-8.2 [facility] Work Phone: Sodium [Moles/Vol] 142 mmol/L 136-145 [facility] Work Phone: Testosterone [Mass/Vol] 404.64 ng/dL [facility] Work Phone: Comment on above: CENTRAL 90% REFERENC E RANGES MALE AGE <50 197.44 - 669.58 ng/dL MALE AGE > or = 50 187.72 - 684.19 ng/dL FEMALE AGE <50 8.38 - 35.01 ng/dL FEMALE AGE > or = 50 <7.00 - 35.92 ng/dL Effective as of 03/03/21 WBC (Bld) [#/Vol] 6.6 10*3/uL 4.4-11.0 [facility] Work Phone: Blood erythrocytes count (nu mber/volume)on 10-22-2021 RBC (Bld) [#/Vol] 4.32 10*6/uL 4.6-6.2 [facility]: Blood hemoglobin measurement (mass/volume)on 10-22-2021 Hemoglobin (Bld) [Mass/Vol] 13.7 g/dL 13.0-16. 5 [facility] Work Phone: Blood lymphocytes/100 leukoc yteson 10-22-2021 Lymphocytes/100 WBC (Bld) 26.4 % 19-41 [facility] Work Phone: Blood monocytes/100 leukocyt eson 10-22-2021 Monocytes/100 WBC (Bld) 7.3 % 0-[address] [facility] Work Phone: Blood platelet mean volumeon 10-22-2021 Platelet mean volume (Bld) [Entitic vol] 10.3 fL 6.2-12.0 [facility] Work Phone: Determination of erythrocyte mean corpuscular volume (MCV)on 10-22-2021 MCV (RBC) [Entitic vol] 94.0 fL 80-[address] [facility] Work Phone: Hematocrit Auto (Bld) [Volum e fraction]on 10-22-2021 Hematocrit (Bld) [Volume fraction] 40.6 % 40-54 [facility] Work Phone: Laboratory - Chemistry and C hemistry - challengeon 10-22-2021 ALP [Catalytic activity/Vol] 80 U/L 45-117 [facility] Work Phone: ALT [Catalytic activity/Vol] 17 U/L 16-61 [facility] Work Phone: CO2 [Moles/Vol] 29.0 mmol/L 21.0-32.0 [facility] Work Phone: Globulin (S) [Mass/Vol] 3.2 g/dL 2.2-4.[address] [facility] Work Phone: Urea nitrogen/Creatinine [Mass ratio] 24.3 mg/mg 10-20 [facility] Work Phone: Laboratory - Hematology and Cell countson 10-22-2021 Erythrocyte distribution width (RBC) [Entitic vol] 43.2 fL 35.1-43.9 [facility] Work Phone: Erythrocyte distribution width (RBC) [Ratio] 12.6 % 11.6-14.6 [facility] Work Phone: Immature granulocytes/100 WBC (Bld) 0.300 % 0.0-0.9 [facility] Work Phone: Comment on above: IG% - Immature Granu locytes (promyelocytes, myelocytes and metamyelocytes) > 1% indicates that a LEFT SHIFT is Present. MCH (RBC) [Entitic mass] 31.7 pg 27.0-32.0 [facility] Work Phone: Nucleated RBC/100 WBC (Bld) [Ratio] 0 % 0-5 [facility] Work Phone: MCHC Auto (RBC) [Mass/Vol]on 10-22-2021 MCHC (RBC) [Mass/Vol] 33.7 g/dL 32-36 [facility] Work Phone: No Panel Informationon 10-22 Estimated GFR (MDRD) Amer 87 mL/min >60 [facility] Work Phone: Comment on above: GFR Calc Estimated GFR (MDRD) Non-Af Amer 72 mL/min >60 [facility] Work Phone: Comment on above: Non- GFR Calc Thyroid Stimulating Hormone (TSH) 1.22 uIU/mL 0.358-3.74 [facility] Work Phone: Vitamin D 25-Hydroxy 13.4 ng/mL [facility] Work Phone: Comment on above: Vitamin D 25(OH) Sta tus Range Deficiency <20 ng/mL (50nmol/L) Insufficiency 20 - 30 ng/mL (50 - 75 nmol/L) Sufficiency 30 - 100 ng/mL (75 - 250 nmol/L) Toxicity >100 ng/mL (>250 nmol/L) Platelets bldon 10-22-2021 Platelets (Bld) [#/Vol] 294 10*3/uL 150-450 [facility] Work Phone: Serum or plasma albumin yin urement (mass/volume)on 10-22-2021 Albumin [Mass/Vol] 3.7 g/dL 3.2-5.0 [facility] Work Phone: Serum or plasma albumin/glob ulin mass ratioon 10-22-2021 Albumin/Globulin [Mass ratio] 1.2 {ratio} 0.9-2.4 [facility] Work Phone: Serum or plasma calcium yin urement (mass/volume)on 10-22-2021 Calcium [Mass/Vol] 9.2 mg/dL 8.5-10.1 [facility] Work Phone: Serum or plasma creatinine m easurement (mass/volume)on 10-22-2021 Creatinine [Mass/Vol] 1.07 mg/dL 0.70-1.30 [facility] Work Phone: Comment on above: The validity of the calculated GFR & GFRAA in patients over 70 years has not been determined. Clinical correlation is essential. Serum or plasma urea nitroge n measurement (mass/volume)on 10-22-2021 Urea nitrogen [Mass/Vol] 26 mg/dL 7-18 [facility] Work Phone: Thin prep Papanicolaou smear with manual screeningon 10-22-2021 Thin prep Papanicolaou smear with manual screening 15 U/L 15-37 [facility] Work Phone: Thin prep Papanicolaou smear with manual screening 4 5-15 [facility] Work Phone: .Auto Diffon 04-21-2017 Basophils Auto #/vol (Bld) 0.10 10 3/mcL Normal 0.00-0 .19 [facility] ([place]) Comment on above: Performed By: #### C BC, ADIFF, ANEU, GFR, LIP, CMP ####[address] [place], [place] [address] Basophils/100 WBC Auto (Bld) 0.6 % Normal 0.0-2.5 [facility] ([place]) Comment on above: Performed By: #### C BC, ADIFF, ANEU, GFR, LIP, CMP ####[address] [place], [place] [address] Eosinophils 0.10 10 3/mcL Normal 0.00-0.40 [facility] ([place]) Comment on above: Performed By: #### C BC, ADIFF, ANEU, GFR, LIP, CMP ####[address] [place], [place] [address] Eosinophils/100 leukocytes 0.7 % Normal 0.0-7.0 [facility] ([place]) Comment on above: Performed By: #### C BC, ADIFF, ANEU, GFR, LIP, CMP ####[address] [place], [place] [address] Lymphocytes 1.70 10 3/mcL Normal 0.77-3.85 [facility] ([place]) Comment on above: Performed By: #### C BC, ADIFF, ANEU, GFR, LIP, CMP ####[address] [place], [place] [address] Lymphocytes/100 leukocytes 11.4 % Normal 10.0-50.0 [facility] ([place]) Comment on above: Performed By: #### C BC, ADIFF, ANEU, GFR, LIP, CMP ####[id number] [place], [place] [address] Monocytes 0.80 10 3/mcL Normal 0.15-1.00 [facility] ([place]) Comment on above: Performed By: #### C BC, ADIFF, ANEU, GFR, LIP, CMP ####[place] [address] [place], [place] [address] Monocytes/100 leukocytes 5.1 % Normal 1.7-13.0 [facility] ([place]) Comment on above: Performed By: #### C BC, ADIFF, ANEU, GFR, LIP, CMP ####[place] [address] [place], [place] [address] Neutrophils/100 WBC Auto (Bld) 82.2 % High 37.0-80.0 [facility] ([place]) Comment on above: Performed By: #### C BC, ADIFF, ANEU, GFR, LIP, CMP ####[place] [id number] [place], [place] [address] .GFRon 04-21-2017 eGFR (non-black) mL/min/{1.73_m2} Normal [facility] ([place]) Comment on above: Result Comment: GFR Population mean for , Non- Americans Ages 20-29 = 116 mL/min/1.73 sq.m. Ages 30-39 = 107 mL/min/1.73 sq.m. Ages 40-49 = 99 mL/min/1.73 sq.m. Ages 50-59 = 93 mL/min/1.73 sq.m. Ages 60-69 = 85 mL/min/1.73 sq.m. Ages 70+ = 75 mL/min/1.73 sq.m.Chronic Kidney Disease: Less than 60 mL/min/1.73 square metersEnd Stage Renal Disease: Less than 15 mL/min/1.73 square meters Performed By: #### C BC, ADIFF, ANEU, GFR, LIP, CMP ####[id number] [place], [place] [address] eGFR (non-black) 85 ml/min/1.73sqm Normal [facility] ([place]) Comment on above: Result Comment: GFR Population mean for , Non- Americans Ages 20-29 = 116 mL/min/1.73 sq.m. Ages 30-39 = 107 mL/min/1.73 sq.m. Ages 40-49 = 99 mL/min/1.73 sq.m. Ages 50-59 = 93 mL/min/1.73 sq.m. Ages 60-69 = 85 mL/min/1.73 sq.m. Ages 70+ = 75 mL/min/1.73 sq.m.Chronic Kidney Disease: Less than 60 mL/min/1.73 square metersEnd Stage Renal Disease: Less than 15 mL/min/1.73 square meters Performed By: #### C BC, ADIFF, ANEU, GFR, LIP, CMP ####[place] [address] [place], [place] [address] .NEUABSon 04-21-2017 Neutrophils 12.50 10 3/mcL High 2.85-6.16 [facility] ([place]) Comment on above: Performed By: #### C BC, ADIFF, ANEU, GFR, LIP, CMP ####[place] [address] [place], [place] [address] CBCon 04-21-2017 Erythrocyte distribution width Auto Ratio (RBC) 13.2 % Normal 11.5-14.5 [facility] ([place]) Comment on above: Performed By: #### C BC, ADIFF, ANEU, GFR, LIP, CMP ####[place] [address] [place], [place] [address] Erythrocytes (RBC) 5.37 10 6/mcL Normal 4.04-6.13 [facility] ([place]) Comment on above: Performed By: #### C BC, ADIFF, ANEU, GFR, LIP, CMP ####[place] [address] [place], [place] [address] Hematocrit (HCT) 47.9 % Normal 42.0-52.0 [facility] ([place]) Comment on above: Performed By: #### C BC, ADIFF, ANEU, GFR, LIP, CMP ####[place] [address] [place], [place] [address] Hemoglobin mass conc (Bld) 16.0 G/dL Normal 14.0-18.0 [facility] ([place]) Comment on above: Performed By: #### C BC, ADIFF, ANEU, GFR, LIP, CMP ####[place] [address] [place], [place] [address] MCH 29.9 pg Normal 27.0-31.2 [facility] ([place]) Comment on above: Performed By: #### C BC, ADIFF, ANEU, GFR, LIP, CMP ####[place] [address] [place], [place] [address] [facility] mass conc (RBC) 33.5 G/dL Normal 31.8-35.4 [facility] ([place]) Comment on above: Performed By: #### C BC, ADIFF, ANEU, GFR, LIP, CMP ####[place] [address] [place], [place] [address] MCV 89.3 fL Normal 80.0-94.0 [facility] ([place]) Comment on above: Performed By: #### C BC, ADIFF, ANEU, GFR, LIP, CMP ####[place] [address] [place], [place] [address] Platelet mean volume (PMV) 8.1 fL Normal 7.4-10.4 [facility] ([place]) Comment on above: Performed By: #### C BC, ADIFF, ANEU, GFR, LIP, CMP ####[place] [address] [place], [place] [address] Platelets 316 10 3/mcL Normal 130-400 [facility] ([place]) Comment on above: Performed By: #### C BC, ADIFF, ANEU, GFR, LIP, CMP ####[address] [place], [place] [address] WBC (Leukocytes) 15.20 10 3/mcL High 4.60-10.80 [facility] ([place]) Comment on above: Performed By: #### C BC, ADIFF, ANEU, GFR, LIP, CMP ####[address] [place], [place] [address] CMPon 04-21-2017 Alanine aminotransferase (ALT) 19 U/L Normal 10-35 [facility] ([place]) Comment on above: Performed By: #### C BC, ADIFF, ANEU, GFR, LIP, CMP ####[address] [place], [place] [address] Albumin 4.6 G/dL Normal 3.4-4.8 [facility] ([place]) Comment on above: Performed By: #### C BC, ADIFF, ANEU, GFR, LIP, CMP ####[address] [place], [place] [address] Albumin/Globulin Ratio 1.7 {ratio} Normal 1.1-2.5 [facility] ([place]) Comment on above: Performed By: #### C BC, ADIFF, ANEU, GFR, LIP, CMP ####[place] [address] [place], [place] [address] Alk Phos 98 IU/L Normal 40-135 [facility] ([place]) Comment on above: Performed By: #### C BC, ADIFF, ANEU, GFR, LIP, CMP ####[address] [place], [place] [address] Aspartate aminotransferase (AST) 15 U/L Normal 10-40 [facility] ([place]) Comment on above: Performed By: #### C BC, ADIFF, ANEU, GFR, LIP, CMP ####[address] [place], [place] [address] Bili Total 1.2 mg/dL High 0.2-1.0 [facility] ([place]) Comment on above: Performed By: #### C BC, ADIFF, ANEU, GFR, LIP, CMP ####[address] [address] [place], [place] [address] Calcium 9.7 mg/dL Normal 8.4-10.2 [facility] ([place]) Comment on above: Performed By: #### C BC, ADIFF, ANEU, GFR, LIP, CMP ####[address] [place], [place] [address] Globulin 2.7 G/dL Normal [facility] ([place]) Comment on above: Performed By: #### C BC, ADIFF, ANEU, GFR, LIP, CMP ####[address] [place], [place] [address] Glucose mass conc 254 mg/dL High 80-115 [facility] ([place]) Comment on above: Performed By: #### C BC, ADIFF, ANEU, GFR, LIP, CMP ####[address] [place], [place] [address] Protein 7.3 G/dL Normal 6.0-8.3 [facility] ([place]) Comment on above: Performed By: #### C BC, ADIFF, ANEU, GFR, LIP, CMP ####[id number] [place], [place] [address] BUN/Creatinine Ratio 19 ratio Normal 7-27 [facility] ([place]) Comment on above: Performed By: #### C BC, ADIFF, ANEU, GFR, LIP, CMP ####[address] [place], [place] [address] Chloride 104 mmol/L Normal 98-107 [facility] ([place]) Comment on above: Performed By: #### C BC, ADIFF, ANEU, GFR, LIP, CMP ####[place] [address] [place], [place] [address] CO2 27 mmol/L Normal 23-31 [facility] ([place] Comment on above: Performed By: #### C BC, ADIFF, ANEU, GFR, LIP, CMP ####[address] [place], [place] [address] Creatinine 1.0 mg/dL Normal 0.6-1.2 [facility] ([place] Comment on above: Performed By: #### C BC, ADIFF, ANEU, GFR, LIP, CMP ####[address] [place], [place] [address] Electrolyte Balance 11.0 mEq/L Normal [facility] ([place]) Comment on above: Performed By: #### C BC, ADIFF, ANEU, GFR, LIP, CMP ####[place] [place], [place] [address] Potassium molar conc 4.0 mmol/L Normal 3.5-5.1 [facility] ([place]) Comment on above: Performed By: #### C BC, ADIFF, ANEU, GFR, LIP, CMP ####[address] [place], [place] [address] Sodium 142 mmol/L Normal 136-146 [facility] ([place]) Comment on above: Performed By: #### C BC, ADIFF, ANEU, GFR, LIP, CMP ####[address] [place], [place] [address] Urea nitrogen 19.2 mg/dL High 7.0-18.0 [facility] ([place]) Comment on above: Performed By: #### C BC, ADIFF, ANEU, GFR, LIP, CMP ####[address] [place], [place] [address] CT ABDOMEN/PELVIS W/O CONTRA Ramonadavid 04-21-2017 CT ABDOMEN/PELVIS W/O CONTRAST ORIGINALCT ABDOMEN/PELVIS W/O CONTRAST:Multiplanar coronal, sagittal, and axial reconstructions were reviewed on a separate workstation CLINICAL STATEMENT: pain, history of stones COMPARISON: CT abdomen/pelvis 05/24/2013 TECHNIQUE: This exam was performed according to our departmental dose optimization program, including but not limited to: automated exposure control, adjustment of the mAs and/or kVp according to patient size and/or exam, and use of an iterative reconstruction algorithm where applicable. FINDINGS: Evaluation is suboptimal secondary to the lack of IV contrast. Included images of the lower thorax demonstrate bibasilar scarring/atelectasis. There is chronic elevation of the right hemidiaphragm. Coronary artery calcifications are seen. Heart size is normal. No pleural or pericardial effusion. Small hiatal hernia. The unenhanced included liver, spleen, pancreas, and adrenal glands are unremarkable. The gallbladder is present. The kidneys are symmetric in size. There is significant perinephric stranding on the left and mild left-sided pelvocaliectasis. A thinly walled right midportion renal cyst measures 6.9 cm with some thin lower peripheral calcifications. A right lower pole renal calculus measures 6 mm. There is a punctate left lower pole renal calculus. There is mild prominence of the left ureter with periureteral stranding. A distal left ureteral calculus measures up to 4 mm. There is mild hydroureter and periureteral stranding on the left. The urinary bladder is not well distended. The prostate is normal in size with dystrophic calcifications. There are small bilateral fat-containing inguinal hernias. Stomach is mildly contracted and normal in course. The small and large bowel demonstrate no disproportionate dilatation to suggest obstruction. The appendix is normal. There are scattered colonic diverticula without evidence of diverticulitis. No abdominal or pelvic ascites is present. No suspicious osseous lesion is identified. Degenerative findings noted in the spine with significant central canal and foraminal stenosis at a few levels.. Abdominal aorta is atherosclerotic and nonaneurysmal. No lymphadenopathy given the lack of IV contrast. IMPRESSION: 1. A 3 to 4 mm distal left ureteral calculus with mild left hydroureter and periureteral stranding. Associated left perinephric stranding. Nonobstructing bilateral renal calculi.2. Scattered colonic diverticula without evidence of diverticulitis. I have personally reviewed the images of this examination and agree with the resident's findings and interpretation. Interpreted By: Rodger Barrios MDPreliminary Report By: Robson Gamboa DOElectronically Signed By: Rodger Barrios MD Dictated Date: 04/21/2017 6:40:08 PM Prelim Date: 04/21/2017 6:46:48 PM Sign Date: 04/21/2017 7:09:41 PM Normal [facility] ([place]) LIPon 04-21-2017 Lipase Level 16 IU/L Normal 8-78 [facility] ([place]) Comment on above: Performed By: #### C BC, ADIFF, ANEU, GFR, LIP, CMP ####[address] Emergency Room Note on 04-21-2017 [place] [facility] Note Normal [facility] ([place]) Patient Summary Documentson 04-21-2017 Patient Summary Documents Normal [facility] ([place] XR ABDOMEN COMPLETE W/DECUB/ ERECTon 04-21-2017 XR ABDOMEN COMPLETE W/DECUB/ERECT ORIGINALXR ABDOMEN COMPLETE W/DECUB/ERECT 2 views CLINICAL STATEMENT: Generalized abdominal pain , patient thinks food poisoning from breakfast COMPARISON: Abdominal radiograph 12/24/2015, CT abdomen/pelvis 05/24/2013 FINDINGS: In the interim, the right ureteral stent has been removed. Nonspecific bowel gas pattern is seen with paucity of intraluminal gas. No evidence of small bowel obstruction, portal venous gas, pneumatosis, or free air. The visualized lung bases are clear. The right hemidiaphragm is elevated. Degenerative findings noted in the spine. There is a cluster of right lower pole renal calcifications measuring up to 7 mm. No calcification is seen along the expected course of the ureters. May be a punctate calcification projecting over the left lower pole kidney. IMPRESSION: Nonobstructive bowel gas pattern. Probable small bilateral lower pole renal calculi. I have personally reviewed the images of this examination and agree with the resident's findings and interpretation. Interpreted By: Rodger Barrios MDPreliminary Report By: Robson Gamboa DOElectronically Signed By: Rodger Barrios MD Dictated Date: 04/21/2017 5:25:03 PM Prelim Date: 04/21/2017 5:29:18 PM Sign Date: 04/21/2017 7:06:53 PM Normal [facility] ([place]) Influenza virus A and B and SARS-CoV-2 (COVID-19) Ag panel - Upper respiratory specim SARS-CoV-2 & FLU Antigen (Rapid) SARS-CoV-2 (COVID 19) [facility] Work Phone: Vital Signs Date Time Vital Sign Value Performing Clinician Facility 11-29-2024 16:21-0400 Diastolic blood pressure 91 mm[Hg] Dr. Mitch Mcwilliams MD Work Phone: [facility] 11-29-2024 16:21-0400 Heart rate 93 /min Dr. Mitch Mcwilliams MD Work Phone: [facility] 11-29-2024 16:21-0400 Respiratory rate 16 /min Dr. Mitch Mcwilliams MD Work Phone: [facility] 11-29-2024 16:21-0400 SaO2% (BldA) [Mass fraction] 96 % Dr. Mitch Mcwilliams MD Work Phone: [facility] 11-29-2024 16:21-0400 Systolic blood pressure 112 mm[Hg] Dr. Mitch Mcwilliams MD Work Phone: [facility] 11-29-2024 07:46-0400 Body temperature 97.7 [degF] Dr. Mitch Mcwilliams MD Work Phone: [facility] 11-27-2024 10:51-0400 Body mass index (BMI) [Ratio] 30.9 kg/m2 Dr. Mitch Mcwilliams MD Work Phone: [facility] 11-27-2024 10:51-0400 Body weight 94.[address] Mitch Mcwilliams MD Work Phone: [facility] 11-21-2024 14:19-0400 Body height 175.[address] Mitch Mcwilliams MD Work Phone: [phone] [place] [address] 11-07-2024 16:58-0400 Body temperature 97.8 [degF] Dr. Mitch Mcwilliams MD Work Phone: [phone](855)[phone] [place] [address] 11-07-2024 16:58-0400 Diastolic blood pressure 76 mm[Hg] Dr. Mitch Mcwilliams MD Work Phone: [phone])328-626621 [place] [address] 11-07-2024 16:58-0400 Heart rate 68 /min Dr. Mitch Mcwilliams MD Work Phone: [phone] [place] [address] 11-07-2024 16:58-0400 Respiratory rate 18 /min Dr. Mitch Mcwilliams MD Work Phone: 0([phone])[phone] [place] [address] 11-07-2024 16:58-0400 SaO2% (BldA) [Mass fraction] 96 % Dr. Mitch Mcwilliams MD Work Phone: [phone])393-033121 [place] [address] 11-07-2024 16:58-0400 Systolic blood pressure 137 mm[Hg] Dr. Mitch Mcwilliams MD Work Phone: 5(585)717-626721 [place] [address] 11-07-2024 04:59-0400 Body mass index (BMI) [Ratio] 31.3 kg/m2 Dr. Mitch Mcwilliams MD Work Phone: 6([phone])104-596021 [place] [address] 11-07-2024 04:59-0400 Body weight 95.[address] Mitch Mcwilliams MD Work Phone: 8([phone])543-029821 [place] [address] 11-06-2024 14:00-0400 Inhaled oxygen flow rate 95 L/min Dr. Mitch Mcwilliams MD Work Phone: [phone] [place] [address] 11-06-2024 10:00-0400 Body height 175.[address] Mitch Mcwilliams MD Work Phone: 0([phone] [place] [address] 11-04-2024 20:22-0400 Body temperature 102.3 [degF] Dr. Mitch Mcwilliams MD Work Phone: [phone](656)889-412521 [place] [address] 11-04-2024 20:22-0400 Diastolic blood pressure 65 mm[Hg] Dr. Mitch Mcwilliams MD Work Phone: [facility] 11-04-2024 20:22-0400 Heart rate 88 /min Dr. Mitch Mcwilliams MD Work Phone: 1(391)[phone] [place] [address] 11-04-2024 20:22-0400 Inhaled oxygen flow rate 0 L/min Dr. Mitch Mcwilliams MD Work Phone: 2(886)736-258050 [place] [address] 11-04-2024 20:22-0400 Respiratory rate 18 /min Dr. Mitch Mcwilliams MD Work Phone: 0(007)792-917150 [place] [address] 11-04-2024 20:22-0400 SaO2% (BldA) [Mass fraction] 96 % Dr. Mitch Mcwilliams MD Work Phone: 9(208)432-182021 [place] [address] 11-04-2024 20:22-0400 Systolic blood pressure 121 mm[Hg] Dr. Mitch Mcwilliams MD Work Phone: 8(655)713-916221 [place] [address] 11-04-2024 16:33-0400 Body height 144.[address] Mitch Mcwilliams MD Work Phone: 7(732)013-986121 [place] [address] 11-04-2024 16:33-0400 Body mass index (BMI) [Ratio] 46.7 kg/m2 Dr. Mitch Mcwilliams MD Work Phone: 9(361)532-156121 [place] [address] 11-04-2024 16:33-0400 Body weight 98.[address] Mitch Mcwilliams MD Work Phone: 1(311)089-113421 [place] [address] 10-19-2024 15:00-0400 Body temperature 96.9 [degF] Dr. Mitch Mcwilliams MD Work Phone: 5(232)196-778050 [place] [address] 10-19-2024 15:00-0400 Diastolic blood pressure 80 mm[Hg] Dr. Mitch Mcwilliams MD Work Phone: 7(397)472-959250 [place] [address] 10-19-2024 15:00-0400 Heart rate 86 /min Dr. Mitch Mcwilliams MD Work Phone: 1(702)088-875750 [place] [address] 10-19-2024 15:00-0400 Respiratory rate 16 /min Dr. Mitch Mcwilliams MD Work Phone: 9(107)191-735450 [place] [address] 10-19-2024 15:00-0400 SaO2% (BldA) [Mass fraction] 95 % Dr. Mitch Mcwilliams MD Work Phone: 1(082)548-465221 [place] [address] 10-19-2024 15:00-0400 Systolic blood pressure 148 mm[Hg] Dr. Mitch Mcwilliams MD Work Phone: 2(681)029-156021 [place] [address] 10-19-2024 11:51-0400 Body height 175.[address] Mitch Mcwilliams MD Work Phone: 7(506)389-062421 [place] [address] 10-19-2024 11:51-0400 Body mass index (BMI) [Ratio] 31 kg/m2 Dr. Mitch Mcwilliams MD Work Phone: 7(517)064-338621 [place] [address] 10-19-2024 11:51-0400 Body weight 95.[address] Mitch Mcwilliams MD Work Phone: 4(912)622-053421 [place] [address] 09-25-2024 11:45-0500 Body temperature 99.7 [degF] Dr. Mitch Mcwilliams MD Work Phone: 2(677)528-520521 [place] [address] 09-25-2024 11:45-0500 Diastolic blood pressure 68 mm[Hg] Dr. Mitch Mcwilliams MD Work Phone: 4(925)576-002121 [place] [address] 09-25-2024 11:45-0500 Heart rate 60 /min Dr. Mitch Mcwilliams MD Work Phone: 9(595)843-843021 [place] [address] 09-25-2024 11:45-0500 Respiratory rate 18 /min Dr. Mitch Mcwilliams MD Work Phone: 7(343)501-846021 [place] [address] 09-25-2024 11:45-0500 SaO2% (BldA) [Mass fraction] 95 % Dr. Mitch Mcwilliams MD Work Phone: 2(768)249-305421 [place] [address] 09-25-2024 11:45-0500 Systolic blood pressure 154 mm[Hg] Dr. Mitch Mcwilliams MD Work Phone: 0(436)372-198521 [place] [address] 09-24-2024 14:25-0500 Inhaled oxygen flow rate 2 L/min Dr. Mitch Mcwilliams MD Work Phone: 6(287)371-480221 [place] [address] 09-24-2024 10:25-0500 Body height 175.[address] Mitch Mcwilliams MD Work Phone: 8(815)509-762021 [place] [address] 09-24-2024 10:25-0500 Body mass index (BMI) [Ratio] 32.1 kg/m2 Dr. Mitch Mcwilliams MD Work Phone: 0(898)441-077250 [place] [address] 09-24-2024 10:25-0500 Body weight 98.[address] Mitch Mcwilliams MD Work Phone: 2(568)045-119021 [place] [address] 06-25-2024 21:35-0500 Body temperature 98.5 [degF] Dr. Mitch Mcwilliams MD Work Phone: 7(382)305-146021 [place] [address] 06-25-2024 21:35-0500 Diastolic blood pressure 95 mm[Hg] Dr. Mitch Mcwilliams MD Work Phone: 6(582)822-642621 [place] [address] 06-25-2024 21:35-0500 Heart rate 90 /min Dr. Mitch Mcwilliams MD Work Phone: 3(295)066-678721 [place] [address] 06-25-2024 21:35-0500 Respiratory rate 18 /min Dr. Mitch Mcwilliams MD Work Phone: 6(913)803-347021 [place] [address] 06-25-2024 21:35-0500 SaO2% (BldA) [Mass fraction] 94 % Dr. Mitch Mcwilliams MD Work Phone: 4(803)477-422821 [place] [address] 06-25-2024 21:35-0500 Systolic blood pressure 161 mm[Hg] Dr. Mitch Mcwilliams MD Work Phone: 8(335)301-847821 [place] [address] 06-25-2024 20:05-0500 Body mass index (BMI) [Ratio] 34.3 kg/m2 Dr. Mitch Mcwilliams MD Work Phone: 9(900)660-361950 [place] [address] 06-25-2024 20:05-0500 Body weight 105.[address] Mitch Mcwilliams MD Work Phone: 9(089)991-254921 [place] [address] 08-11-2022 00:29-0500 Diastolic blood pressure 72 mm[Hg] [facility] 08-11-2022 00:29-0500 Heart rate 100 /min [facility] 08-11-2022 00:29-0500 Respiratory rate 16 /min [facility] 08-11-2022 00:29-0500 SaO2% (BldA) [Mass fraction] 93 % [facility] 08-11-2022 00:29-0500 Systolic blood pressure 114 mm[Hg] [facility] 08-10-2022 22:28-0500 Body temperature 100.6 [degF] [facility] 08-10-2022 20:59-0500 Body height 173.99 cm [facility] 08-10-2022 20:59-0500 Body mass index (BMI) [Ratio] 31.4 kg/m2 [facility] 08-10-2022 20:59-0500 Body weight 95.25 kg [facility] 12-09-2021 13:25-0400 Body temperature 97.7 [degF] Dr. Mitch Mcwilliams Work Phone: [facility] Work Phone: 12-09-2021 13:25-0400 Diastolic blood pressure 57 mm[Hg] Dr. Mitch Mcwilliams Work Phone: [facility] Work Phone: 12-09-2021 13:25-0400 Heart rate 70 /min Dr. Mitch Mcwilliams Work Phone: [facility] Work Phone: 12-09-2021 13:25-0400 Respiratory rate 18 /min Dr. Mitch Mcwilliams Work Phone: [facility] Work Phone: 12-09-2021 13:25-0400 SaO2% (BldA) [Mass fraction] 94 % Dr. Mitch Mcwilliams Work Phone: [facility] Work Phone: 12-09-2021 13:25-0400 Systolic blood pressure 122 mm[Hg] Dr. Mitch Mcwilliams Work Phone: [facility] Work Phone: 12-08-2021 10:00-0400 Body weight 96.[address] Mitch Mcwilliams Work Phone: [facility] Work Phone: 12-02-2021 13:11-0400 Body height 175.[address] Mitch Mcwilliams Work Phone: [facility] Work Phone: 12-01-2021 16:55-0400 Body temperature 97.6 [degF] Dr. Mitch Mcwilliams Work Phone: [facility] Work Phone: 12-01-2021 16:55-0400 Diastolic blood pressure 73 mm[Hg] Dr. Mitch Mcwilliams Work Phone: [facility] Work Phone: 12-01-2021 16:55-0400 Heart rate 79 /min Dr. Mitch Mcwilliams Work Phone: [facility] Work Phone: 12-01-2021 16:55-0400 Respiratory rate 16 /min Dr. Mitch Mcwilliams Work Phone: [facility] Work Phone: 12-01-2021 16:55-0400 SaO2% (BldA) [Mass fraction] 95 % Dr. Mitch Mcwilliams Work Phone: [facility] Work Phone: 12-01-2021 16:55-0400 Systolic blood pressure 133 mm[Hg] Dr. Mitch Mcwilliams Work Phone: [facility] Work Phone: 12-01-2021 15:10-0400 Body mass index (BMI) [Ratio] 33.5 kg/m2 Dr. Mitch Mcwilliams Work Phone: [facility] Work Phone: 12-01-2021 15:10-0400 Body weight 102.[address] Mitch Mcwilliams Work Phone: [facility] Work Phone: 11-23-2021 18:25-0400 Body mass index (BMI) [Ratio] 33.4 kg/m2 Dr. Mitch Mcwilliams Work Phone: [facility] Work Phone: 11-23-2021 13:49-0400 Body temperature 98.7 [degF] Dr. Mitch Mcwilliams Work Phone: [facility] Work Phone: 11-23-2021 13:49-0400 Diastolic blood pressure 84 mm[Hg] Dr. Mitch Mcwilliams Work Phone: [facility] Work Phone: 11-23-2021 13:49-0400 Heart rate 60 /min Dr. Mitch Mcwilliams Work Phone: [facility] Work Phone: 11-23-2021 13:49-0400 Respiratory rate 18 /min Dr. Mitch Mcwilliams Work Phone: [facility] Work Phone: 11-23-2021 13:49-0400 SaO2% (BldA) [Mass fraction] 95 % Dr. Mitch Mcwilliams Work Phone: [facility] Work Phone: 11-23-2021 13:49-0400 Systolic blood pressure 137 mm[Hg] Dr. Mitch Mcwilliams Work Phone: [facility] Work Phone: 11-22-2021 22:17-0400 Body height 175.[address] Mitch Mcwilliams Work Phone: [facility] Work Phone: 11-22-2021 22:17-0400 Body mass index (BMI) [Ratio] 33 kg/m2 Dr. Mitch Mcwilliams Work Phone: [facility] Work Phone: 11-22-2021 22:17-0400 Body weight 101.[address] Mitch Mcwilliams Work Phone: [facility] Work Phone: 11-22-2021 21:47-0400 Body temperature 98.3 [degF] [facility] Work Phone: 11-22-2021 21:47-0400 Diastolic blood pressure 90 mm[Hg] [facility] Work Phone: 11-22-2021 21:47-0400 Heart rate 63 /min [facility] Work Phone: 11-22-2021 21:47-0400 Respiratory rate 18 /min [facility] Work Phone: 11-22-2021 21:47-0400 SaO2% (BldA) [Mass fraction] 96 % [facility] Work Phone: 11-22-2021 21:47-0400 Systolic blood pressure 145 mm[Hg] [facility] Work Phone: 11-22-2021 17:59-0400 Body height 175.26 cm [facility] Work Phone: 11-22-2021 17:59-0400 Body mass index (BMI) [Ratio] 33.2 kg/m2 [facility] Work Phone: 11-22-2021 17:59-0400 Body weight 102.05 kg [facility] Work Phone: 11-17-2021 18:04-0400 Body height 175.26 cm [facility] Work Phone: 11-17-2021 18:04-0400 Body mass index (BMI) [Ratio] 33.2 kg/m2 [facility] Work Phone: 11-17-2021 18:04-0400 Body temperature 97.9 [degF] [facility] Work Phone: 11-17-2021 18:04-0400 Body weight 102.05 kg [facility] Work Phone: 11-17-2021 18:04-0400 Diastolic blood pressure 99 mm[Hg] [facility] Work Phone: 11-17-2021 18:04-0400 Heart rate 90 /min [facility] Work Phone: 11-17-2021 18:04-0400 Respiratory rate 18 /min [facility] Work Phone: 11-17-2021 18:04-0400 SaO2% (BldA) [Mass fraction] 98 % [facility] Work Phone: 11-17-2021 18:04-0400 Systolic blood pressure 164 mm[Hg] [facility] Work Phone: 11-07-2021 08:44-0400 Body height 175.26 cm [facility] Work Phone: 11-07-2021 08:44-0400 Body mass index (BMI) [Ratio] 34.2 kg/m2 [facility] Work Phone: 11-07-2021 08:44-0400 Body temperature 96.5 [degF] [facility] Work Phone: 11-07-2021 08:44-0400 Body weight 105.2 kg [facility] Work Phone: 11-07-2021 08:44-0400 Diastolic blood pressure 94 mm[Hg] [facility] Work Phone: 11-07-2021 08:44-0400 Heart rate 78 /min [facility] Work Phone: 11-07-2021 08:44-0400 Respiratory rate 18 /min [facility] Work Phone: 11-07-2021 08:44-0400 SaO2% (BldA) [Mass fraction] 98 % [facility] Work Phone: 11-07-2021 08:44-0400 Systolic blood pressure 180 mm[Hg] [facility] Work Phone: Encounters Encounter Date Encounter Type Care Provider Facility Start: 12-20-2024 End: 12-20-[address] Mitch Mcwilliams MD Work Phone: [facility] Work Phone: Start: 12-20-2024 End: 12-20-[address] Mitch Mcwilliams MD -Laboratory Work Phone: Start: 12-20-2024 End: 12-20-2024 ambulatory Mitch Mcwilliams Facility:[facility] Start: 11-07-2024 End: 11-29-2024 Evaluation and management of inpatient Dr. Mitch Mcwilliams MD -Transitional Care Unit Start: 11-07-2024 Non-patient / Non-visit Dr. Wellington Stone MD -[facility] Work Phone: Start: 11-06-2024 Non-patient / Non-visit Dr. Wellington Stone MD -[facility] Work Phone: Start: 11-05-2024 ambulatory Abdias Thompson Facility:[facility] Start: 11-05-2024 Non-patient / Non-visit Dr. Abdias boyd MD -[facility] Start: 11-04-2024 ambulatory Jose Manuel Mata lity:[facility] Start: 11-04-2024 End: 11-07-2024 Evaluation and management of inpatient Dr. Joel Baldwin DO -Medical Surgical 3 Work Phone: Start: 10-19-2024 End: 10-19-2024 Admission to same day surgery center Dr. Jose Manuel Pham MD -[facility] Start: 10-19-2024 End: 10-19-[address] Mitch Mcwilliams MD Work Phone: [facility] Work Phone: Start: 10-04-2024 End: 10-04-[address] Mitch Mcwilliams MD Work Phone: [facility] Work Phone: Start: 10-04-2024 End: 10-04-[address] Mitch Mcwilliams MD -Laboratory, Phy Office 3rd Flr Start: 10-04-2024 End: 10-04-2024 ambulatory [facility] Facility:[facility] Start: 09-25-2024 Non-patient / Non-visit Dr. Massiel Mayen MD -[facility] Work Phone: Start: 09-24-2024 Non-patient / Non-visit Dr. Massiel Mayen MD -[facility] Work Phone: Start: 09-23-2024 Non-patient / Non-visit Dr. Massiel Mayen MD -[facility] Work Phone: Start: 09-23-2024 ambulatory [facility] Faci lity:[facility] Start: 09-23-2024 End: 09-25-2024 Evaluation and management of inpatient Dr. Gen Mayen MD -Medical Surgical 3 Work Phone: Start: 07-19-2024 End: 07-19-[address] Mitch Mcwilliams MD -[facility] Work Phone: Start: 07-19-2024 End: 07-19-2024 ambulatory [facility] Facility:[facility] Start: 06-25-2024 End: 06-25-2024 Emergency department patient visit Dr. Darrin Mata MD -Emergency Department Work Phone: Start: 06-13-2024 End: 06-13-2024 ambulatory [facility] Facility:[facility] Start: 11-10-2023 End: 11-10-2023 ambulatory [facility] Work Phone: Start: 11-10-2023 End: 11-10-2023 Patient encounter procedure [facility]-Laboratory, Phy Office 3rd Flr Start: 07-11-2023 End: 07-11-2023 ambulatory [facility] Work Phone: Start: 07-11-2023 End: 07-11-2023 Patient encounter procedure [facility]-Laboratory Work Phone: Start: 05-10-2023 End: 05-10-2023 Patient encounter procedure [facility]-Laboratory, Phy Office 3rd Flr Start: 10-28-2022 End: 10-28-2022 ambulatory [facility] Work Phone: Start: 10-28-2022 End: 10-28-2022 Patient encounter procedure [facility]-Laboratory, Phy Office 3rd Flr Start: 08-10-2022 End: 08-11-2022 Emergency department patient visit [facility]-Emergency Department Start: 06-24-2022 End: 06-24-2022 ambulatory [facility] Work Phone: Start: 06-24-2022 End: 06-24-2022 Patient encounter procedure [facility]-Laboratory Start: 04-29-2022 End: 04-29-2022 Patient encounter procedure [facility]-Laboratory, Phy Office 3rd Flr Start: 12-01-2021 End: 12-01-2021 Admission to same day surgery center Dr. Mitch Mcwilliams Work Phone: [facility]-Pre-Admission Testing Start: 11-23-2021 End: 12-09-2021 Evaluation and management of inpatient Dr. Mitch Mcwilliams Work Phone: [facility]-Transitional Care Unit Start: 11-23-2021 Non-patient / Non-visit Dr. Byron Mcwilliams Work Phone: [facility] Start: 11-22-2021 Non-patient / Non-visit Dr. Byron Mcwilliams Work Phone: [facility] Start: 11-22-2021 End: 11-23-2021 Evaluation and management of inpatient [facility]-Medical Surgical 3 Start: 11-17-2021 End: 11-17-2021 Emergency department patient visit [facility]-Emergency Department Start: 11-12-2021 End: 11-12-2021 Patient encounter procedure [facility]-Radiology, [facility] Start: 11-07-2021 End: 11-07-2021 Emergency department patient visit [facility]-Emergency Department Start: 10-22-2021 End: 10-22-2021 Patient encounter procedure [facility]-Laboratory, Phy Office 3rd Flr Start: 04-21-2017 End: 04-21-2017 Emergency department patient visit OVIDIO GONZALEZ Facility:[facility] Procedures Date Procedure Procedure Detail Performing Clinician Start: 12-20-2024 Vitamin D, 25-hydrox y measurement Dr. Mitch Mcwilliams MD Work Phone: Comment on above: Vitamin D StatusDefi ciency: <20 ng/mL (50nmol/L)Insufficiency: 20-30 ng/mL (50-75 nmol/L)Sufficiency: 30-100 ng/mL (75-250 nmol/L)Toxicity: >100 ng/mL (>250 nmol/L) Start: 11-29-[address] Mitch Mcwilliams MD Work Phone: Start: 11-20-2024 Cl[address] diff[address] e detection Dr. Mitch Mcwilliams MD Work Phone: Start: 11-20-[address] Mitch dotson MD Work Phone: Start: 11-20-2024 X-ray of chest, PA a nd lateral views Dr. Mitch Mcwilliams MD Work Phone: Start: 11-20-2024 Urnls dip stick/tabl et reagent auto microscopy Dr. Mitch Mcwilliams MD Work Phone: Start: 11-19-[address] Mitch Mcwilliams MD Work Phone: Start: 11-19-[address] Mitch Mcwilliams MD Work Phone: Start: 11-07-[address] Mitch Mcwilliams MD Work Phone: Start: 11-06-2024 Serum inorganic phos phate measurement Dr. Mitch Mcwilliams MD Work Phone: Start: 11-05-2024 Fluoroscopic guidance Esteban Mcwilliams MD Work Phone: Start: 11-05-2024 Cholesterol serum/wh ole blood total Dr. Mitch Mcwilliams MD Work Phone: Comment on above: Test not performed Start: 11-05-2024 Cystoscopy and retro grade pyelography Dr. Mitch Mcwilliams MD Work Phone: Start: 11-04-2024 CT angiography of ch est with contrast Dr. Mitch Mcwilliams MD Work Phone: Start: 11-04-2024 D-dimer assay, quantitative Dr. Mitch Mcwilliams MD Work Phone: Comment on above: D-Dimer ELEVATED (>0 .49): Additional studies and clinicalassessments are indicated to conclude diagnosis of:Deep Vein Thrombosis (DVT) or Pulmonary Embolism (PE)CRITICAL VALUE CALLED TO [id number] Carmelita Atwood.RESULTS READ BACK BY SAME. Start: 11-04-2024 Urnls dip stick/tabl et reagent auto microscopy Dr. Mitch Mcwilliams MD Work Phone: Start: 11-04-2024 Plain x-ray of pelvi s and lower extremity Dr. Mitch Mcwilliams MD Work Phone: Start: 11-04-2024 CT cervical spine wi thout contrast Dr. Mitch Mcwilliams MD Work Phone: Start: 11-04-2024 CT of chest, abdomen and pelvis without contrast Dr. Mitch Mcwilliams MD Work Phone: Start: 11-04-2024 CT of head without contrast Dr. Mitch Mcwilliams MD Work Phone: Start: 11-04-[address] Mitch dotson MD Work Phone: Start: 11-04-[address] Mitch dotson MD Work Phone: Start: 10-19-2024 Extracorporeal shock wave lithotripsy Dr. Mitch Mcwilliams MD Work Phone: Start: 10-19-2024 Plain X-ray abdomen Dr. Mitch Mcwilliams MD Work Phone: Start: 09-25-[address] Mitch Mcwilliams MD Work Phone: Start: 09-25-2024 Measurement of renal function Dr. Mitch Mcwilliams MD Work Phone: Comment on above: GFR Calc Start: 09-24-2024 Fluoroscopic guidance Esteban Mcwilliams MD Work Phone: Start: 09-24-2024 Insertion of stent into ureter Dr. Mitch Mcwilliams MD Work Phone: Start: 09-23-2024 Urnls dip stick/tabl et reagent auto microscopy Dr. Mitch Mcwilliams MD Work Phone: Start: 09-23-[address] Mitch dotson MD Work Phone: Start: 09-23-2024 CT of abdomen and pe lvis without contrast Dr. Mitch Mcwilliams MD Work Phone: Start: 07-19-2024 MRI of brain without contrast Dr. Mitch Mcwilliams MD Work Phone: Start: 07-19-2024 MRI of cervical spine Esteban Mcwilliams MD Work Phone: Start: 07-19-2024 MRI of lumbar spine Dr. Mitch Mcwilliams MD Work Phone: Start: 07-19-2024 MRI of thoracic spine Esteban Mcwilliams MD Work Phone: Start: 06-25-2024 CT of abdomen and pe lvis without contrast Dr. Mitch Mcwilliams MD Work Phone: Start: 08-10-2022 Plain chest X-ray Start: 08-10-2022 Radiologic examination of knee Start: 12-01-2021 Fluoroscopic guidance Esteban Mcwilliams Work Phone: Start: 12-01-[address] Byron Mcwilliams Work Phone: Start: 12-01-2021 Fluoroscopic guidance Esteban Mcwilliams Work Phone: Start: 11-30-2021 End: 11-30-[address] Mitch Mcwilliams Work Phone: Start: 11-23-2021 End: 11-23-[address] Mitch Mcwilliams Work Phone: Start: 11-22-2021 CT of head without contrast Start: 11-22-2021 Plain x-ray of pelvi s and lower extremity Start: 11-22-2021 Radiologic examination of knee Start: 11-17-2021 MRI of lower extremity Start: 11-12-2021 X-ray of lumbar spin e, two or three views Start: 11-07-2021 Plain X-ray of femur SARS-CoV-2 & FLU Ant igen (Rapid) SARS-CoV-2 & FLU Ant igen (Rapid) Streptococcus pyogen es antigen assay Plan of Treatment Date Care Activity Detail Author Start: 11-29-2024 Patient discharge [facility] Start: 11-28-2024 Developing a treatment plan [facility] Start: 11-28-2024 Development of care plan [facility] Start: 11-27-2024 Referral to service [facility] Start: 11-25-2024 Wound care [facility] Start: 11-08-2024 Development of care plan [facility] Start: 11-08-2024 Developing a treatment plan [facility] Start: 11-07-2024 Following clinical pathway protocol [facility] Start: 11-07-2024 Admission procedure [facility] Start: 11-07-2024 Introduction of urinary catheter [facility] Start: 11-07-2024 Measuring intake and output [facility] Start: 11-07-2024 Patient referral to dietitian [facility] Start: 11-07-2024 Referral to occupational therapist [facility] Start: 11-07-2024 Referral to service [facility] Start: 11-07-2024 Vital signs measurements [facility] Start: 11-07-2024 [facility] Start: 11-07-2024 Patient discharge [facility] Start: 11-05-2024 [facility] Start: 11-04-2024 Application of intermittent pneumatic compression device [facility] Start: 11-04-2024 Following clinical pathway protocol [facility] Start: 11-04-2024 Assessment of risk of venous thromboembolism [facility] Start: 11-04-2024 Care regimes management [facility] Start: 11-04-2024 Consultation [facility] Start: 11-04-2024 Documentation procedure [facility] Start: 11-04-2024 Insertion of catheter into peripheral vein [facility] Start: 11-04-2024 Measuring intake and output [facility] Start: 11-04-2024 Notification of physician [facility] Start: 11-04-2024 Providing care according to standard [facility] Start: 11-04-2024 Provision of activity privileges [facility] Start: 11-04-2024 Referral to occupational therapist [facility] Start: 11-04-2024 Referral to service [facility] Start: 11-04-2024 Verification routine [facility] Start: 11-04-2024 Admission procedure [facility] Start: 11-04-2024 End: 11-04-2024 [facility] Start: 11-04-2024 Hospital admission, emergency, from emergency room, medical nature [facility] Start: 11-04-2024 End: 11-04-2024 [facility] Start: 11-04-2024 [facility] Start: 11-04-2024 Bacteria identified in Urine by Culture Urine Culture [facility] Start: 11-04-2024 Blood culture Blood Culture [facility] Start: 10-19-2024 Anes lithotrp xtrcorp shock wave w/o water bath ANESTH KIDNEY STONE DESTRUCT [facility] Start: 10-19-2024 Lithotripsy xtrcorp shock wave FRAGMENTING OF KIDNEY STONE [facility] Start: 10-19-2024 Ambulation without limitation [facility] Start: 10-19-2024 Medical regimen orders management [facility] Start: 10-19-2024 Medication education [facility] Start: 10-19-2024 Patient discharge [facility] Start: 10-19-2024 Taking patient vital signs [facility] Start: 10-19-2024 [facility] Start: 09-25-2024 Patient discharge [facility] Start: 09-25-2024 Referral to occupational therapist [facility] Start: 09-25-2024 Referral to service [facility] Start: 09-24-2024 [facility] Start: 09-23-2024 Oxygen therapy [facility] Start: 09-23-2024 Application of intermittent pneumatic compression device [facility] Start: 09-23-2024 Following clinical pathway protocol [facility] Start: 09-23-2024 Ambulation without limitation [facility] Start: 09-23-2024 Assessment of risk of venous thromboembolism [facility] Start: 09-23-2024 Care regimes management [facility] Start: 09-23-2024 Consultation [facility] Start: 09-23-2024 Insertion of catheter into peripheral vein [facility] Start: 09-23-2024 Notification of physician [facility] Start: 09-23-2024 Providing care according to standard [facility] Start: 09-23-2024 End: 09-23-2024 [facility] Start: 09-23-2024 Admission procedure [facility] Start: 06-25-2024 [facility] Start: 08-10-2022 [facility] Start: 12-01-2021 Anes dx/ther nrv blk/njx oth/thn prone pos ANESTH NERVE BLOCK/INJ [facility] Work Phone: Start: 12-01-2021 Arthrocentesis aspir&/inj major jt/bursa w/o us DRAIN/INJ JOINT/BURSA W/O US [facility] Work Phone: Calculus analysis [facility] Folate [Moles/volume ] in Serum or Plasma [facility] Lactic acid measurement [facility] Magnesium measurement [facility] Measurement of weigh t of calculus [facility] Origin of Stone [facility] Patient Education [facility] Work Phone: Patient referral [facility] Work Phone: Specimen color determination [facility] Streptococcus pyogen es antigen assay Group A Streptococcus Rapid Screen [facility] Work Phone: Urine culture [facility] XR Abdomen Single view [facility] Immunizations Immunization Date Immunization Notes Care Provider Fa cilijp 11-12-2024 Covid (Spikevax) Dr. Mitch dahl MD Work Phone: [facility] 06-13-2024 influenza, injectabl e, quadrivalent, preservative free Dr. Mitch Mcwilliams MD Work Phone: [facility] 11-06-2021 Covid (Moderna) Dr. Mitch Mcwilliams Work Phone: [facility] 11-06-2020 Covid (Moderna) Dr. Mitch Mcwilliams Work Phone: [facility] 10-06-2020 Covid (Moderna) Dr. Mitch Mcwilliams Work Phone: [facility] 04-22-2020 pneumococcal polysaccharide vaccine, [address] Mitch Mcwilliams MD Work Phone: [facility] 04-19-2019 pneumococcal conjuga te vaccine, [address] Mitch Mcwilliams MD Work Phone: [facility] 05-17-2016 pneumococcal polysaccharide vaccine, [address] Mitch Mcwilliams MD Work Phone: [facility] 05-15-2015 pneumococcal conjuga te vaccine, [address] Mitch Mcwilliams MD Work Phone: [facility] 05-13-2015 influenza, injectabl e, quadrivalent, preservative free [facility] 05-13-2015 influenza, seasonal, injectable [facility] Payers Date Payer Category Payer Self-pay [id number] 2024 Unknown [id number] 2017 Medicare [id number] 2013 Unknown [id number] 2012 Medicare [id number] Unknown [id number] 2.16.8 [id number] Unknown [id number] 2.16.8 [id number] Unknown [id number] 2.16.8 [id number] Unknown [id number] 2.16.8 [id number] Unknown [id number] 2.16.8 [id number] Unknown [id number] 2.16.8 [id number] Unknown [id number] 2.16.8 [id number] Unknown [id number] 2.16.8 [id number] Unknown [id number] 2.16.8 [id number] Unknown [id number] 2.16.8 [id number] Unknown [id number] 2.16.8 [id number] Unknown [id number] 2.16.8 [id number] Unknown [id number] 2.16.8 [id number] Unknown [id number] 2.16.8 [id number] Unknown [id number] 2.16.8 [id number] Unknown [id number] 2.16.8 [id number] Unknown [id number] 2.16.8 [id number] Social History Date Type Detail Facility Start: 04-21-2020 End: 11-04-2024 Tobacco smoking status NCIS Unknown if ever smoked [facility] Start: 02-03-2020 None [facility] Start: 02-03-2020 Alone [facility] Start: 04-25-2019 Non-smoker [facility] Start: 1950 Sex Assigned At Male [facility] Start: 10-11-2024 End: 11-07-2024 Tobacco smoking status NHIS Never smoked tobacco (finding) [facility] Start: 10-18-2024 End: 11-07-2024 Sex Male (finding) [facility] Medical Equipment Procedure Code Equipment Code Equipment Origin al Text Equipment Identifier Dates Cystoscopy, with retrograde pyelogram and ureteral stent insertion ([id number]) Polymeric ureteral stent [id number] FDA Start: 09-24-2024 STENT,URETERAL 6 FR PIG 6X26 FDA Start: 11-08-2018 STENT,URETERAL 6 FR PIG 6X26 FDA Start: 11-08-2018 STENT,URETERAL 6 FR PIG 6X26 FDA Start: 11-08-2018 STENT,URETERAL 6 FR PIG 6X26 FDA Start: 11-08-2018 STENT,URETERAL 6 FR PIG 6X26 FDA Start: 11-08-2018 STENT,URETERAL 6 FR PIG 6X26 FDA Start: 11-08-2018 STENT,URETERAL 6 FR PIG 6X26 FDA Start: 11-08-2018 STENT,URETERAL 6 FR PIG 6X26 FDA Start: 11-08-2018 STENT,URETERAL 6 FR PIG 6X26 FDA Start: 11-08-2018 STENT,URETERAL 6 FR PIG 6X26 FDA Start: 11-08-2018 STENT,URETERAL 6 FR PIG 6X26 FDA Start: 11-08-2018 STENT,URETERAL 6 FR PIG 6X26 FDA Start: 11-08-2018 STENT,URETERAL 6 FR PIG 6X26 FDA Start: 11-08-2018 STENT,URETERAL 6 FR PIG 6X26 FDA Start: 11-08-2018 STENT,URETERAL 6 FR PIG 6X26 FDA Start: 11-08-2018 STENT,URETERAL 6 FR PIG 6X26 FDA Start: 11-08-2018 STENT,URETERAL 6 FR PIG 6X26 FDA Start: 11-08-2018 STENT,URETERAL 6 FR PIG 6X26 FDA Start: 11-08-2018 STENT,URETERAL 6 FR PIG 6X26 FDA Start: 11-08-2018 Goals Date Patient Goal Desired Activity /State Functional Status Date Assessment Result Facility 11-29-2024 Functional status Chair [facility] Work Phone: 11-28-2024 Functional status Tolerates Activity Fair [facility] Work Phone: 11-07-2024 Functional status Chair [facility] Work Phone: 09-25-2024 Functional status Patient Activity Dangle Feet [facility] Work Phone: 09-25-2024 Functional status With Assist of 1 [facility] Work Phone: 09-24-2024 Functional status Tolerates Activity Well [facility] Work Phone: 12-09-2021 Functional status Up ad montserrat [facility] Work Phone: 11-23-2021 Functional status Chair [facility] Work Phone: Mental Status Date Assessment Result Facility 11-29-2024 Cognitive function Voice/Name [facility] Work Phone: 11-25-2024 Cognitive function Appropriate;Cooperativ e [facility] Work Phone: 11-07-2024 Cognitive function Voice/Name [facility] Work Phone: 10-19-2024 Cognitive function Voice/Name [facility] Work Phone: 09-25-2024 Cognitive function Voice/Name [facility] Work Phone: 08-10-2022 Cognitive function Level Of Cons ciousness Awake;Alert;Appropriate;Follow s Commands [facility] Work Phone: 12-09-2021 Cognitive function Voice/Name [facility] Work Phone: 12-01-2021 Cognitive function Touch/Shaking [facility] Work Phone: 11-23-2021 Cognitive function Voice/Name [facility] Work Phone: Clinical Notes 2024 to 11-27-2024 Note Date & Type Note Facility 11-27-2024 Note [facility] 11-07-2024 Note [facility] 11-07-2024 Discharge summary Note Date/Time November 07, 2024 3:22pm [facility] Medical Records Department [address] [place] [address] Discharge Summary 11/07/24 1520 MR#: [id number] Acct: [id number] Name: AARON CHAPA Rep #:[id number] : 1950 74 From: [place] Orellana PCP: Dr. Mitch Mcwilliams MD Status:ADM I N Location: [place] [id number] Providers Date of Admission: 11/04/24 Date of Discharge: 11/07/24 Primary Care Physician: Dr. Mitch Mcwilliams MD Consultations 11/04/24 21:16 Consult: Urology Routine Consulting Provider: Jose Manuel Pham Reason for Consult: Lefr Renal Stone with Hydronephrosis; recurrent. EMERGENT Consult: No MD Notified: Yes Date Notified: 11/04/24 Time Notified: 20:48 Method of Notification: ED Physician Initiated Reason For Visit: RHABDOMYOLYSIS AFTER FALL WITH PROLONGED DOWN TIME Diagnosis Discharge Diagnosis (1) Rhabdomyolysis: Status: Acute Code(s): M62.82 - Rhabdomyolysis Qualifiers: Rhabdomyolysis type: traumatic Encounter type: initial encounter Qualified Code(s): T79.6XXA - Traumatic ischemia of muscle, initial encounter (2) Fall at home: Status: Acute Code(s): W19.XXXA - Unspecified fall, initial encounter; Y92.009 - Unspecified place in unspecified non-institutional (private) residence as the place of occurrence of the external cause Qualifiers: Encounter type: initial encounter Qualified Code(s): W19.XXXA - Unspecified fall, initial encounter; Y92.009 - Unspecified place in unspecified non-institutional (private) residence as the place of occurrence of the externalcause (3) Acute cystitis with hematuria: Status: Acute Code(s): N30.01 - Acute cystitis with hematuria (4) Calculus of left ureter: Status: Acute Code(s): N20.1 - Calculus of ureter (5) Pyelonephritis of left kidney: Status: Acute Code(s): N12 - Tubulo-interstitial nephritis, not specified as acute or chronic (6) Fever: Status: Acute Code(s): R50.9 - Fever, unspecified Qualifiers: Fever type: due to other condition Qualified Code(s): R50.81 - Fever presenting with conditions classified elsewhere (7) Chronic prostatitis: Status: Chronic Code(s): N41.1 - Chronic prostatitis (8) BPH (benign prostatic hyperplasia): Status: Acute Code(s): N40.0 - Benign prostatic hyperplasia without lower urinary tract symptoms Qualifiers: Lower urinary tract symptom presence: unspecified whether lower urinary tract symptoms present Qualified Code(s): N40.0 - Benign prostatic hyperplasia without lower urinary tract symptoms (9) Generalized weakness: Status: Acute Code(s): R53.1 - Weakness (10) Ambulatory dysfunction: Status: Acute Code(s): R26.2 - Difficulty in walking, not elsewhere classified (11) Morbid obesity with BMI of 45.0-49.9, adult: Status: Acute Code(s): E66.01 - Morbid (severe) obesity due to excess calories; Z68.42 - Body mass index [BMI] 45.0-49.9, adult Plan 74-year-old gentleman was admitted with fall at home around midnight, found on the floor, left shoulder and left hip pain. No arm shortening or rotation of the limb noted. 1. Elevated CK of 2,755 U/L present on admission consistent with mild rhabdomyolysis after recent Fall with prolonged down time with CKD stage IIIb - Admit to general medical floor. Aggressive IV fluid resuscitation. Creatinine increased from 1.67-1.79. Baseline around 1.4-1.8. 11/06: Repeat CK tomorrow morning. Patient will need rehab because of poor balance and unsteady gait and high risk of fall 11/07: CK 612. Has improved. Patient denies any muscle pain. 2. Abnormal UA with left ureteric calculus, UTI ruled out: UA positive of LE 500, WBC 10?25 cells, RBC 10?25, nitrite negative. CT shows left obstructive uropathy with associated left periureteral fat stranding suggestive of possible pyelonephritis. Bilateral nonobstructive nephrolithiasis. Right hydrocele. Prostatic calcifications. 11/06: Urine culture shows GNR 11,000?24,000 but will continue antibiotics as patient had urologic intervention. 11/07: Urine culture shows Burkholderia gladioli 11,000?25,000 colonies, not in pathology range therefore UTI ruled out. Discharged on 3 more days of empiric Augmentin because of urologic intervention during this admission Patient recently had left renal calculus; s/p ECSWL and stent removal by Dr. Pham of urology on October 19, 2024: Patient was spiking temperature 92.3 ?F after ceftriaxone. Initially started on Zosyn but will change to IV Unasyn because Zosyn increased tubular creatinine secretion therefore pseudo increase in creatinine. Previous urine culture in September 2024 was negative but before that was positive for Enterococcus less than 1000 colonies Corrective Therapy Aide consulted for left ureteric stent 11/06: He had cystoscopy ureteroscopy and lithotripsy of stone fragments in the left ureter but no stent. 11/07: Follow-up in urology office Dr. Pham. 3. Generalized Weakness with Ambulatory Dysfunction with acute on chronic Debility and Frequent Falls -folic acid normal. B12 pending. PT and OT ordered 42: Patient is still generalized weak and required assistance for ambulation. 4. Morbid obesity; with BMI of 46.8 this admission -weight loss recommended. Repeat BMI 31.2 KG per square meter, seems one of the reading either admission or current may be wrong 5. OA; with sciatica, chronic back pain plus history of cervical spine surgery: PT and OT 4/2: Patient needs 2 people assist and hardly able to move 10 feet therefore qualifies for usp. 6. Essential Hypertension; on lisinopril -discontinue lisinopril because of increasing creatinine. 7. Hyperlipidemia; on atorvastatin - Hold statin because of increased CK 8. DM-2; of unknown control on metformin - Hold metformin while admitted. ADA diet. FSBS q. AC/HS plus lowest-intensity SSI. 4/2: Creatinine clearance more than 30 mL/min. Metformin regimen. 9. Chronic venous stasis dermatitis: Venous duplex ruled out bilateral DVT or bilateral GSV superficial thrombophlebitis 11. DVT prophylaxis -SCDs Discharge medication reconciliation done. Discharge follow-up instructions completed. Discharge process discussed with the patient and all questions were answered to patient's satisfaction. Follow with PCP in 1 to 2 weeks Total time spent, exact 35 minutes on discharge meds reconciliation, examination, coordination of care with nurses and ancillary staff, review of imaging and blood test and discussion with the patient on follow-up instructions. Medications at Discharge Home Medications atorvastatin 40 mg tablet 40 mg PO QHS CHOLESTEROL 11/07/18 lisinopril 5 mg tablet 5 mg PO DAILY blood pressure 04/25/19 metformin 500 mg tablet 500 mg PO BID diabetes 02/03/20 gabapentin 100 mg capsule 100 mg PO TIDCM pain 30 days #90 caps 12/03/21 tamsulosin 0.4 mg capsule 0.4 mg PO DAILY@1730 bph 14 days #14 caps 09/25/24 acetaminophen 500 mg tablet 1,000 mg (2 x 500 mg) PO Q8H PRN PRN Pain Score 1-3 #0 tabs 11/07/24 amoxicillin 500 mg-potassium clavulanate 125 mg tablet (Augmentin) 1 tab PO BID 3 days #6 tabs 11/07/24 cholecalciferol (vitamin D3) 125 mcg (5,000 unit) capsule 125 mcg PO DAILY #0 caps 11/07/24 Physical Exam Narrative Seen and examined For last 2 to 3 days patient very resistant to go to usp but required 2 people to assist even to make him stand up and hardly walk 10 feet. Lastly had agreed to go to SNF. Patient abdominal pain is resolved. Had left ureteric stone lithotripsy 11/05/2024. He moved bowel Patient admitted with generalized weakness, recurrent fall. Has poor balance. Patient has also found to have left distal ureter multiple stones. Recently right ureteric stent was removed after treatment for right kidney stones. Denies burning micturition/dysuria Physical exam General: Alert, Oriented x3, Cooperative. Morbid obesity BMI 31.2 kg/m? HEENT: Atraumatic, PERRLA, EOMI, Normocephalic Oral: No Gingival or Mucosal Lesions/ Ulcerations Neck: Supple, No JVD, Negative Carotid Bruits. C-spine surgical scar Chest wall/Lungs: Air entry diminished in bilateral lung bases. No crepitation/rhonchi Cardiovascular: Regular rate, Regular Rhythm, Normal S1, Normal S2, No M/G/R Abdomen: Bowel Sounds Present, Soft, Non-Distended : No dysuria. No acute bilateral renal angle tenderness or along course of ureter Extremities: No edema, Capillary Refill Less than 3 Seconds Skin: No rashes, No breakdown Musculoskeletal: Muscle strength 4+/5 at knees and hip joints. No Tenderness to Palpation of Joints or Extremities Neurological: Cranial nerves II-XII grossly intact, DTR 2+/4. No acute focal neurological deficit. Psych/Mental Status: Flat affect Weight / BMI Weight Weight: 211 lb 6.773 oz Body Mass Index (BMI) 31.3 ABG / Lab / Microbiology Data 11/07/24 07:04 11/07/24 07:04 Laboratory: Laboratory Results - last 24 hr 11/06/24 16:43: POC Glucose 134 H 11/07/24 00:00: POC Glucose 104 11/07/24 05:49: POC Glucose 131 H 11/07/24 07:04: WBC 7.2, RBC 2.95 L, Hgb 9.5 L, Hct 28.2 L, MCV 95.6 H, MCH 32.2 H, MCHC 33.7, RDW Std Deviation 44.4 H, RDW Coeff of Javid 12.9, Plt Count 188, MPV 9.9, Immature Gran % (Auto) 1.700 H, Neut % (Auto) 72.7 H, Lymph % (Auto) 10.7 L, [place] % (Auto) 14.4 H, Eos % (Auto) 0.4, Baso % (Auto) 0.1, Absolute Neuts (auto) 5.2, Absolute Lymphs (auto) 0.77 L, Nucleated RBC % 0.3, Sodium 133, Potassium 3.6, Chloride 105, Carbon Dioxide 17.4 L, Anion Gap 11, BUN 31 H, Creatinine 1.61 H, Estim Creat Clear Calc 44.60 L, Est GFR (MDRD) Non-Af 44 L, BUN/Creatinine Ratio 19.3, Glucose 116 H, Calcium 7.9, Total Creatine Kinase 612 H 11/07/24 11:25: POC Glucose 274 H 11/07/24 13:25: POC Glucose 166 H Microbiology: Microbiology 11/04/24 21:00 Blood Culture (Wb) - Line Draw Blood Culture - Preliminary 11/04/24 18:50 Urine, Clean Catch Urine Culture - Final Burkholderia gladioli 11/04/24 21:02 Blood Culture (Wb) - Arm Left Blood Culture - Preliminary No growth in 48 hours. D/C Instructions DC O2, CPAP, BIPAP Needs Home O2 Discharge instructions: No Meaningful Use Info Meaningful Use Meaningful Use Diagnoses (Choose all that apply): None applicable Ischemic Stroke Statin Dosing Therapy Reference: STATIN DOSE THERAPY REFERENCE: * Patients > 75 years receive moderate or high dose statin therapy. * Patients 75 years or YOUNGER should receive HIGH intensity statin dose unless contraindicated. You will be required to document reason for non-treatment if statin daily dose does not meet guidelines. HIGH DOSE STATIN THERAPY DAILY Atorvastatin > than or = to 40 mg Rosuvastatin > than or = to 20 mg Amlodipine + Atorvastatin > than or = to 2.5/40 mg Ezetimibe + Simvastatin 10/80 mg Simvastatin 80mg Discharge Plan Admission Admit Date/Time: 11/04/24 20:45 Primary Reason for Your Visit: Fall, ambulatory dysfunction and debility. Left ureteric stone Attending Provider: Wellington Stone Primary Care Provider: Mitch Mcwilliams [employer] Providers: Jose Manuel Pham; Joel Baldwin Discharge Orders/Prescriptions Prescriptions: New cholecalciferol (vitamin D3) 125 mcg (5,000 unit) Capsule 125 mcg PO DAILY Qty: 0 0RF amoxicillin-pot clavulanate [Augmentin] 500-125 mg tablet 1 tab PO BID 3 Days Qty: 6 0RF Continued atorvastatin 40 MG tablet 40 mg PO QHS lisinopril 5 MG tablet 5 mg PO DAILY metformin 500 MG tablet 500 mg PO BID gabapentin 100 mg Capsule 100 mg PO TIDCM 30 Days Qty: 90 0RF tamsulosin 0.4 mg Capsule 0.4 mg PO DAILY@1730 14 Days Qty: 14 0RF Changed acetaminophen 500 mg Tablet 1,000 mg PO Q8H PRN PRN (Reason: Pain Score 1-3) Qty: 0 0RF Referrals / Follow Up: Jose Manuel Pham MD [Med Staff - Active Staff] - Within 2 Weeks Mitch Mcwilliams Chi, MD [Primary Care Provider] - Disposition Disposition (needs filled in before D/C Order can be placed): Home, Self Care Charges/Coding Visit Charges Inpatient E&M: [id number] Disch Hosp >30min 11/07/24 1522 <Electronically signed by Wellington Stone MD> Cosigner Signature (if applicable): CC: Dr. Jose Manuel Pham MD; Dr. Wellington Stone MD; Dr. Mitch Mcwilliams MD~ Signed [facility] Work Phone: 1(226) 288-701304-02-2025 Discharge summary Author Wellington Stone [facility] Note Date/Time November 07, 2024 3:20 pm [facility] Medical Records Department [address] [place] [address] Transfer to [facility] Care MR#: [id number] Acct: [id number] Name: AARON CHAPA Rep #:[id number] : 1950 74 From: Wellington Orellana PCP: Dr. Mitch Mcwilliams MD Status:ADM I N Certification of patient admission REQUIRED AT TIME OF ADMISSION. I CERTIFY THAT POST-HOSPITAL ECF SERVICES ARE REQUIRED TO BE GIVEN ON AN IN-PATIENT BASIS BECAUSE OF THE ABOVE NAMED PATIENT'S NEED FOR SKILLED NURSING CARE ON A CONTINUING BASIS FOR THE CONDITION(S) FOR WHICH HE/SHE WAS RECEIVING IN-PATIENT HOSPITAL SERVICES PRIOR TO HIS/HER TRANSFER TO THE ECF. 11/07/24 1520<Electronically signed by Wellington Stone MD> Diet Diet Order/Speech Therapy: 11/05/24 16:35 Diet: Cardiac - Heart Healthy Food consistency:: Regular Liquid Consistency:: Regular/Thin Routine Orders/Code Status Suppository Type: Dulcolax 10mg Suppository Frequency: Daily PRN DC O2, CPAP, BIPAP needs Home O2 Discharge instructions: No Wound(s) left leg: Wound Type: Abrasion urethral: Wound Type: Surgical Incision Therapies Extremity Affected:: Bilateral Lower Physical Therapy: Eval and Treat Occupational Therapy: Eval and Treat Speech Therapy: Eval and Treat Problem/Diagnosis (1) Rhabdomyolysis: Status: Acute Code(s): M62.82 - Rhabdomyolysis (2) Fall at home: Status: Acute Code(s): W19.XXXA - Unspecified fall, initial encounter; Y92.009 - Unspecified place in unspecified non-institutional (private) residence as the place of occurrence of the external cause (3) Acute cystitis with hematuria: Status: Acute Code(s): N30.01 - Acute cystitis with hematuria (4) Calculus of left ureter: Status: Acute Code(s): N20.1 - Calculus of ureter (5) Pyelonephritis of left kidney: Status: Acute Code(s): N12 - Tubulo-interstitial nephritis, not specified as acute or chronic (6) Fever: Status: Acute Code(s): R50.9 - Fever, unspecified (7) Chronic prostatitis: Status: Chronic Code(s): N41.1 - Chronic prostatitis (8) BPH (benign prostatic hyperplasia): Status: Acute Code(s): N40.0 - Benign prostatic hyperplasia without lower urinary tract symptoms (9) Generalized weakness: Status: Acute Code(s): R53.1 - Weakness (10) Ambulatory dysfunction: Status: Acute Code(s): R26.2 - Difficulty in walking, not elsewhere classified (11) Morbid obesity with BMI of 45.0-49.9, adult: Status: Acute Code(s): E66.01 - Morbid (severe) obesity due to excess calories; Z68.42 - Body mass index [BMI] 45.0-49.9, adult Plan 74-year-old gentleman was admitted with fall at home around midnight, found on the floor, left shoulder and left hip pain. No arm shortening or rotation of the limb noted. 1. Elevated CK of 2,755 U/L present on admission consistent with mild rhabdomyolysis after recent Fall with prolonged down time with CKD stage IIIb - Admit to general medical floor. Aggressive IV fluid resuscitation. Creatinine increased from 1.67-1.79. Baseline around 1.4-1.8. 11/06: Repeat CK tomorrow morning. Patient will need rehab because of poor balance and unsteady gait and high risk of fall 2: CK 612. Has improved. Patient denies any muscle pain. 2. Abnormal UA with left ureteric calculus, UTI ruled out: UA positive of LE 500, WBC 10?25 cells, RBC 10?25, nitrite negative. CT shows left obstructive uropathy with associated left periureteral fat stranding suggestive of possible pyelonephritis. Bilateral nonobstructive nephrolithiasis. Right hydrocele. Prostatic calcifications. 11/06: Urine culture shows GNR 11,000?24,000 but will continue antibiotics as patient had urologic intervention. 11/07: Urine culture shows Burkholderia gladioli 11,000?25,000 colonies, not in pathology range therefore UTI ruled out. Discharged on 3 more days of empiric Augmentin because of urologic intervention during this admission Patient recently had left renal calculus; s/p ECSWL and stent removal by Dr. Pham of urology on October 19, 2024: Patient was spiking temperature 92.3 ?F after ceftriaxone. Initially started on Zosyn but will change to IV Unasyn because Zosyn increased tubular creatinine secretion therefore pseudo increase in creatinine. Previous urine culture in September 2024 was negative but before that was positive for Enterococcus less than 1000 colonies Corrective Therapy Aide consulted for left ureteric stent 11/06: He had cystoscopy ureteroscopy and lithotripsy of stone fragments in the left ureter but no stent. 3. Generalized Weakness with Ambulatory Dysfunction with acute on chronic Debility and Frequent Falls -folic acid normal. B12 pending. PT and OT ordered 11/07: Patient is still generalized weak and required assistance for ambulation. 4. Morbid obesity; with BMI of 46.8 this admission -weight loss recommended. Repeat BMI 31.2 KG per square meter, seems one of the reading either admission or current may be wrong 5. OA; with sciatica, chronic back pain plus history of cervical spine surgery: PT and OT 11/07: Patient needs 2 people assist and hardly able to move 10 feet therefore qualifies for usp. 6. Essential Hypertension; on lisinopril -discontinue lisinopril because of increasing creatinine. 7. Hyperlipidemia; on atorvastatin - Hold statin because of increased CK 8. DM-2; of unknown control on metformin - Hold metformin while admitted. ADA diet. FSBS q. AC/HS plus lowest-intensity SSI. 9. Chronic venous stasis dermatitis: Venous duplex ruled out bilateral DVT or bilateral GSV superficial thrombophlebitis 11. DVT prophylaxis -SCDs Discharge medication reconciliation done. Discharge follow-up instructions completed. Discharge process discussed with the patient and all questions were answered to patient's satisfaction. Follow with PCP in 1 to 2 weeks Total time spent, exact 35 minutes on discharge meds reconciliation, examination, coordination of care with nurses and ancillary staff, review of imaging and blood test and discussion with the patient on follow-up instructions. Allergies/Procedures Done in Hospital Allergies oxycodone HCl (From Percocet) Allergy (Intermediate, Verified 10/19/24 11:59) Other shaky, hot, sweaty, nauseated Type of Care/Length of Stay Estimated LOS: Convalescent Care Less Than 30 days Type of Care Needed: Skilled Rehab Potential: Good Prognosis: Good Additional Orders/Day of Discharge Day of Discharge: 11/07/24 Dietary and Speech Recommendations Dietitian Recommendations/Changes: As medically able, rec AMY to CHO Controlled/ Cardiac Will monitor need for changes in pt nutritional status and will provide ONS and diet education at time of follow up as indicated. Discharge Plan Admission Admit Date/Time: 11/04/24 20:45 Primary Reason for Your Visit: Fall, ambulatory dysfunction and debility. Left ureteric stone Attending Provider: Wellington Stone Primary Care Provider: Mitch Mcwilliams [employer] Providers: Jose Manuel Pham; Joel Baldwin Discharge Orders/Prescriptions Prescriptions: New cholecalciferol (vitamin D3) 125 mcg (5,000 unit) Capsule 125 mcg PO DAILY Qty: 0 0RF amoxicillin-pot clavulanate [Augmentin] 500-125 mg tablet 1 tab PO BID 3 Days Qty: 6 0RF Continued atorvastatin 40 MG tablet 40 mg PO QHS lisinopril 5 MG tablet 5 mg PO DAILY metformin 500 MG tablet 500 mg PO BID gabapentin 100 mg Capsule 100 mg PO TIDCM 30 Days Qty: 90 0RF tamsulosin 0.4 mg Capsule 0.4 mg PO DAILY@1730 14 Days Qty: 14 0RF Changed acetaminophen 500 mg Tablet 1,000 mg PO Q8H PRN PRN (Reason: Pain Score 1-3) Qty: 0 0RF Referrals / Follow Up: Jose Manuel Pham MD [Med Staff - Active Staff] - Within 2 Weeks Mitch Mcwilliams Chi, MD [Primary Care Provider] - Disposition Disposition (needs filled in before D/C Order can be placed): Home, Self Care (1) Rhabdomyolysis Qualifiers: Encounter type: initial encounter Rhabdomyolysis type: traumatic Qualified Code(s): T79.6XXA - Traumatic ischemia of muscle, initial encounter (2) Fall at home Qualifiers: Encounter type: initial encounter Qualified Code(s): W19.XXXA - Unspecified fall, initial encounter; Y92.009 - Unspecified place in unspecified non-institutional (private) residence as the place of occurrence of the external cause (6) Fever Qualifiers: Fever type: due to other condition Qualified Code(s): R50.81 - Fever presenting with conditions classified elsewhere (8) BPH (benign prostatic hyperplasia) Qualifiers: Lower urinary tract symptom presence: unspecified whether lower urinary tract symptoms present Qualified Code(s): N40.0 - Benign prostatic hyperplasia without lower urinary tract symptoms 11/07/24 1520 <Electronically signed by Wellington Stone MD> Cosigner Signature (if applicable): CC: Dr. Joel Baldwin DO; Dr. Jose Manuel Pham MD; Dr. Mitch Mcwilliams MD ~ [facility] Work Phone: 1(653) 181-358004-02-2025 Discharge summary [facility] Medical Records Department [address] [place] [address] Discharge Summary 11/07/24 1520 MR#: [id number] Acct: [id number] Name: AARON CHAPA Rep #:[id number] : 1950 74 From: Wellington Orellana PCP: Dr. Mitch Mcwilliams MD Status:ADM I N Location: [facility] [id number] Providers Date of Admission: 11/04/24 Date of Discharge: 11/07/24 Primary Care Physician: Dr. Mitch Mcwilliams MD Consultations 11/04/24 21:16 Consult: Urology Routine Consulting Provider: Jose Manuel Pham Reason for Consult: Lefr Renal Stone with Hydronephrosis; recurrent. EMERGENT Consult: No MD Notified: Yes Date Notified: 11/04/24 Time Notified: 20:48 Method of Notification: ED Physician Initiated Reason For Visit: RHABDOMYOLYSIS AFTER FALL WITH PROLONGED DOWN TIME Diagnosis Discharge Diagnosis (1) Rhabdomyolysis: Status: Acute Code(s): M62.82 - Rhabdomyolysis Qualifiers: Rhabdomyolysis type: traumatic Encounter type: initial encounter Qualified Code(s): T79.6XXA - Traumatic ischemia of muscle, initial encounter (2) Fall at home: Status: Acute Code(s): W19.XXXA - Unspecified fall, initial encounter; Y92.009 - Unspecified place in unspecified non-institutional (private) residence as the place of occurrence of the external cause Qualifiers: Encounter type: initial encounter Qualified Code(s): W19.XXXA - Unspecified fall, initial encounter; Y92.009 - Unspecified place in unspecified non- institutional (private) residence as the place of occurrence of the externalcause (3) Acute cystitis with hematuria: Status: Acute Code(s): N30.01 - Acute cystitis with hematuria (4) Calculus of left ureter: Status: Acute Code(s): N20.1 - Calculus of ureter (5) Pyelonephritis of left kidney: Status: Acute Code(s): N12 - Tubulo-interstitial nephritis, not specified as acute or chronic (6) Fever: Status: Acute Code(s): R50.9 - Fever, unspecified Qualifiers: Fever type: due to other condition Qualified Code(s): R50.81 - Fever presenting with conditions classified elsewhere (7) Chronic prostatitis: Status: Chronic Code(s): N41.1 - Chronic prostatitis (8) BPH (benign prostatic hyperplasia): Status: Acute Code(s): N40.0 - Benign prostatic hyperplasia without lower urinary tract symptoms Qualifiers: Lower urinary tract symptom presence: unspecified whether lower urinary tract symptoms present Qualified Code(s): N40.0 - Benign prostatic hyperplasia without lower urinary tract symptoms (9) Generalized weakness: Status: Acute Code(s): R53.1 - Weakness (10) Ambulatory dysfunction: Status: Acute Code(s): R26.2 - Difficulty in walking, not elsewhere classified (11) Morbid obesity with BMI of 45.0-49.9, adult: Status: Acute Code(s): E66.01 - Morbid (severe) obesity due to excess calories; Z68.42 - Body mass index [BMI] 45.0-49.9, adult Plan 74-year-old gentleman was admitted with fall at home around midnight, found on the floor, left shoulder and left hip pain. No arm shortening or rotation of the limb noted. 1. Elevated CK of 2,755 U/L present on admission consistent with mild rhabdomyolysis after recent Fall with prolonged down time with CKD stage IIIb - Admit to general medical floor. Aggressive IV fluid resuscitation. Creatinine increased from 1.67-1.79. Baseline around 1.4-1.8. 11/06: Repeat CK tomorrow morning. Patient will need rehab because of poor balance and unsteady gait and high risk of fall 4/2: CK 612. Has improved. Patient denies any muscle pain. 2. Abnormal UA with left ureteric calculus, UTI ruled out: UA positive of LE 500, WBC 10?25 cells, RBC 10?25, nitrite negative. CT shows left obstructive uropathy with associated left periureteral fat stranding suggestive of possible pyelonephritis. Bilateral nonobstructive nephrolithiasis. Right hydrocele. Prostatic calcifications. /: Urine culture shows GNR 11,000?24,000 but will continue antibiotics as patient had urologic intervention. 4/2: Urine culture shows Burkholderia gladioli 11,000?25,000 colonies, not in pathology range therefore UTI ruled out. Discharged on 3 more days of empiric Augmentin because of urologic intervention during this admission Patient recently had left renal calculus; s/p ECSWL and stent removal by Dr. Pham of urology on October 19, 2024: Patient was spiking temperature 92.3 ?F after ceftriaxone. Initially started on Zosynbut will change to IV Unasyn because Zosyn increased tubular creatinine secretion therefore pseudo increase in creatinine. Previous urine culture in September 2024 was negative but before that was positive for Enterococcus less than 1000 colonies Corrective Therapy Aide consulted for left ureteric stent 11/06: He had cystoscopy ureteroscopy and lithotripsy of stone fragments in the left ureter but no stent. 4: Follow-up in urology office Dr. Pham. 3. Generalized Weakness with Ambulatory Dysfunction with acute on chronic Debility and Frequent Falls -folic acid normal. B12 pending. PT and OT ordered 2: Patient is still generalized weak and required assistance for ambulation. 4. Morbid obesity; with BMI of 46.8 this admission -weight loss recommended. Repeat BMI 31.2 KG persquare meter, seems one of the reading either admission or current may be wrong 5. OA; with sciatica, chronic back pain plus history of cervical spine surgery: PT and OT 4/2: Patient needs 2 people assist and hardly able to move 10 feet therefore qualifies for usp. 6. Essential Hypertension; on lisinopril -discontinue lisinopril because of increasing creatinine. 7. Hyperlipidemia; on atorvastatin - Hold statin because of increased CK 8. DM-2; of unknown control on metformin - Hold metformin while admitted. ADA diet. FSBS q. AC/HS plus lowest-intensity SSI. 4/2: Creatinine clearance more than 30 mL/min. Metformin regimen. 9. Chronic venous stasis dermatitis: Venous duplex ruled out bilateral DVT or bilateral GSV superficial thrombophlebitis 11. DVT prophylaxis -SCDs Discharge medication reconciliation done. Discharge follow-up instructions completed. Discharge process discussed with the patient and all questions were answered to patient's satisfaction. Follow with PCP in 1 to 2 weeks Total time spent, exact 35 minutes on discharge meds reconciliation, examination, coordination of care with nurses and ancillary staff, review of imaging and blood test and discussion with the patient on follow-up instructions. Medications at Discharge Home Medications atorvastatin 40 mg tablet 40 mg PO QHS CHOLESTEROL 11/07/18 lisinopril 5 mg tablet 5 mg PO DAILY blood pressure 04/25/19 metformin 500 mg tablet 500 mg PO BID diabetes 02/03/20 gabapentin 100 mg capsule 100 mg PO TIDCM pain 30 days #90 caps 12/03/21 tamsulosin 0.4 mg capsule 0.4 mg PO DAILY@1730 bph 14 days #14 caps 09/25/24 acetaminophen 500 mg tablet 1,000 mg (2 x 500 mg) PO Q8H PRN PRN Pain Score 1-3 #0 tabs 11/07/24 amoxicillin 500 mg-potassium clavulanate 125 mg tablet (Augmentin) 1 tab PO BID 3 days #6 tabs 11/07/24 cholecalciferol (vitamin D3) 125 mcg (5,000 unit) capsule 125 mcg PO DAILY #0 caps 11/07/24 Physical Exam Narrative Seen and examined For last 2 to 3 days patient very resistant to go to usp but required 2 people to assist even to make him stand up and hardly walk 10 feet. Lastly had agreed to go to SNF. Patient abdominal pain is resolved. Had left ureteric stone lithotripsy 11/05/2024. He moved bowel Patient admitted with generalized weakness, recurrent fall. Has poor balance. Patient has also found to have left distal ureter multiple stones. Recently right ureteric stent was removed after treatment for right kidney stones. Denies burning micturition/dysuria Physical exam General: Alert, Oriented x3, Cooperative. Morbid obesity BMI 31.2 kg/m? HEENT: Atraumatic, PERRLA, EOMI, Normocephalic Oral: No Gingival or Mucosal Lesions/ Ulcerations Neck: Supple, No JVD, Negative Carotid Bruits. C-spine surgical scar Chest wall/Lungs: Air entry diminished in bilateral lung bases. No crepitation/rhonchi Cardiovascular: Regular rate, Regular Rhythm, Normal S1, Normal S2, No M/G/R Abdomen: Bowel Sounds Present, Soft, Non-Distended : No dysuria. No acute bilateral renal angle tenderness or along course of ureter Extremities: No edema, Capillary Refill Less than 3 Seconds Skin: No rashes, No breakdown Musculoskeletal: Muscle strength 4+/5 at knees and hip joints. No Tenderness to Palpation of Jointsor Extremities Neurological: Cranial nerves II-XII grossly intact, DTR 2+/4. No acute focal neurological deficit. Psych/Mental Status: Flat affect Weight / BMI Weight Weight: 211 lb 6.773 oz Body Mass Index (BMI) 31.3 ABG / Lab / Microbiology Data 11/07/24 07:04 11/07/24 07:04 Laboratory: Laboratory Results - last 24 hr 11/06/24 16:43: POC Glucose 134 H 11/07/24 00:00: POC Glucose 104 11/07/24 05:49: POC Glucose 131 H 11/07/24 07:04: WBC 7.2, RBC 2.95 L, Hgb 9.5 L, Hct 28.2 L, MCV 95.6 H, MCH 32.2 H, MCHC 33.7, RDW Std Deviation 44.4 H, RDW Coeff of Javid 12.9, Plt Count 188, MPV 9.9, Immature Gran % (Auto) 1.700 H,Neut % (Auto) 72.7 H, Lymph % (Auto) 10.7 L, [place] % (Auto) 14.4 H, Eos % (Auto) 0.4, Baso % (Auto) 0.1, Absolute Neuts (auto) 5.2, Absolute Lymphs (auto) 0.77 L, Nucleated RBC % 0.3, Sodium 133, Potassium 3.6, Chloride 105, Carbon Dioxide 17.4 L, Anion Gap 11, BUN 31 H, Creatinine 1.61 H, Estim Creat Clear Calc 44.60 L, Est GFR (MDRD) Non-Af 44 L, BUN/Creatinine Ratio 19.3, Glucose 116 H, Calcium7.9, Total Creatine Kinase 612 H 11/07/24 11:25: POC Glucose 274 H 11/07/24 13:25: POC Glucose 166 H Microbiology: Microbiology 11/04/24 21:00 Blood Culture (Wb) - Line Draw Blood Culture - Preliminary 11/04/24 18:50 Urine, Clean Catch Urine Culture - Final Burkholderia gladioli 11/04/24 21:02 Blood Culture (Wb) - Arm Left Blood Culture - Preliminary No growth in 48 hours. D/C Instructions DC O2, CPAP, BIPAP Needs Home O2 Discharge instructions: No Meaningful Use Info Meaningful Use Meaningful Use Diagnoses (Choose all that apply): None applicable Ischemic Stroke Statin Dosing Therapy Reference: STATIN DOSE THERAPY REFERENCE: * Patients > 75 years receive moderate or high dose statin therapy. * Patients 75 years or YOUNGER should receive HIGH intensity statin dose unless contraindicated. You will be required to document reason for non-treatment if statin daily dose does not meet guidelines. HIGH DOSE STATIN THERAPY DAILY Atorvastatin > than or = to 40 mg Rosuvastatin > than or = to 20 mg Amlodipine + Atorvastatin > than or = to 2.5/40 mg Ezetimibe + Simvastatin 10/80 mg Simvastatin 80mg Discharge Plan Admission Admit Date/Time: 11/04/24 20:45 Primary Reason for Your Visit: Fall, ambulatory dysfunction and debility. Left ureteric stone Attending Provider: Wellington Stone Primary Care Provider: Mitch Mcwilliams [employer] Providers: Jose Manuel Pham; Joel Baldwin Discharge Orders/Prescriptions Prescriptions: New cholecalciferol (vitamin D3) 125 mcg (5,000 unit) Capsule 125 mcg PO DAILY Qty: 0 0RF amoxicillin-pot clavulanate [Augmentin] 500-125 mg tablet 1 tab PO BID 3 Days Qty: 6 0RF Continued atorvastatin 40 MG tablet 40 mg PO QHS lisinopril 5 MG tablet 5 mg PO DAILY metformin 500 MG tablet 500 mg PO BID gabapentin 100 mg Capsule 100 mg PO TIDCM 30 Days Qty: 90 0RF tamsulosin 0.4 mg Capsule 0.4 mg PO DAILY@1730 14 Days Qty: 14 0RF Changed acetaminophen 500 mg Tablet 1,000 mg PO Q8H PRN PRN (Reason: Pain Score 1-3) Qty: 0 0RF Referrals / Follow Up: Jose Manuel Pham MD [Med Staff - Active Staff] - Within 2 Weeks Mitch Mcwilliams Chi, MD [Primary Care Provider] - Disposition Disposition (needs filled in before D/C Order can be placed): Home, Self Care Charges/Coding Visit Charges Inpatient E&M: 26527 Disch Hosp >30min 11/07/24 1522 Cosigner Signature (if applicable): CC: Dr. Jose Manuel Pham MD; Dr. Wellington Stone MD; Dr. Mitch Mcwilliams MD~ Signed [facility]04-02-2025 Discharge summary [facility] Medical Records Department [address] [place] [address] Transfer to [facility] MR#: [id number] Acct: [id number] Name: AARON CHAPA Rep #:[id number] : 1950 74 From: Wellington Orellana PCP: Dr. Mitch Mcwilliams MD Status:ADM I N Certification of patient admission REQUIRED AT TIME OF ADMISSION. I CERTIFY THAT POST-HOSPITAL ECF SERVICES ARE REQUIRED TO BE GIVEN ON AN IN-PATIENT BASIS BECAUSE OF THE ABOVE NAMED PATIENT'S NEED FOR SKILLED NURSING CARE ON A CONTINUING BASIS FOR THE CONDITION(S) FOR WHICH HE/SHE WAS RECEIVING IN-PATIENT HOSPITAL SERVICES PRIOR TO HIS/HER TRANSFER TO THE F. 11/07/24 1520 Diet Diet Order/Speech Therapy: 11/05/24 16:35 Diet: Cardiac - Heart Healthy Food consistency:: Regular Liquid Consistency:: Regular/Thin Routine Orders/Code Status Suppository Type: Dulcolax 10mg Suppository Frequency: Daily PRN DC O2, CPAP, BIPAP needs Home O2 Discharge instructions: No Wound(s) left leg: Wound Type: Abrasion urethral: Wound Type: Surgical Incision Therapies Extremity Affected:: Bilateral Lower Physical Therapy: Eval and Treat Occupational Therapy: Eval and Treat Speech Therapy: Eval and Treat Problem/Diagnosis (1) Rhabdomyolysis: Status: Acute Code(s): M62.82 - Rhabdomyolysis (2) Fall at home: Status: Acute Code(s): W19.XXXA - Unspecified fall, initial encounter; Y92.009 - Unspecified place in unspecified non-institutional (private) residence as the place of occurrence of the external cause (3) Acute cystitis with hematuria: Status: Acute Code(s): N30.01 - Acute cystitis with hematuria (4) Calculus of left ureter: Status: Acute Code(s): N20.1 - Calculus of ureter (5) Pyelonephritis of left kidney: Status: Acute Code(s): N12 - Tubulo-interstitial nephritis, not specified as acute or chronic (6) Fever: Status: Acute Code(s): R50.9 - Fever, unspecified (7) Chronic prostatitis: Status: Chronic Code(s): N41.1 - Chronic prostatitis (8) BPH (benign prostatic hyperplasia): Status: Acute Code(s): N40.0 - Benign prostatic hyperplasia without lower urinary tract symptoms (9) Generalized weakness: Status: Acute Code(s): R53.1 - Weakness (10) Ambulatory dysfunction: Status: Acute Code(s): R26.2 - Difficulty in walking, not elsewhere classified (11) Morbid obesity with BMI of 45.0-49.9, adult: Status: Acute Code(s): E66.01 - Morbid (severe) obesity due to excess calories; Z68.42 - Body mass index [BMI] 45.0-49.9, adult Plan 74-year-old gentleman was admitted with fall at home around midnight, found on the floor, left shoulder and left hip pain. No arm shortening or rotation of the limb noted. 1. Elevated CK of 2,755 U/L present on admission consistent with mild rhabdomyolysis after recent Fall with prolonged down time with CKD stage IIIb - Admit to general medical floor. Aggressive IV fluid resuscitation. Creatinine increased from 1.67-1.79. Baseline around 1.4-1.8. 11/06: Repeat CK tomorrow morning. Patient will need rehab because of poor balance and unsteady gait and high risk of fall 11/07: CK 612. Has improved. Patient denies any muscle pain. 2. Abnormal UA with left ureteric calculus, UTI ruled out: UA positive of LE 500, WBC 10?25 cells, RBC 10?25, nitrite negative. CT shows left obstructive uropathy with associated left periureteral fat stranding suggestive of possible pyelonephritis. Bilateral nonobstructive nephrolithiasis. Right hydrocele. Prostatic calcifications. 11/06: Urine culture shows GNR 11,000?24,000 but will continue antibiotics as patient had urologic intervention. 11/07: Urine culture shows Burkholderia gladioli 11,000?25,000 colonies, not in pathology range therefore UTI ruled out. Discharged on 3 more days of empiric Augmentin because of urologic intervention during this admission Patient recently had left renal calculus; s/p ECSWL and stent removal by Dr. Pham of urology on October 19, 2024: Patient was spiking temperature 92.3 ?F after ceftriaxone. Initially started on Zosynbut will change to IV Unasyn because Zosyn increased tubular creatinine secretion therefore pseudo increase in creatinine. Previous urine culture in September 2024 was negative but before that was positive for Enterococcus less than 1000 colonies Corrective Therapy Aide consulted for left ureteric stent 11/06: He had cystoscopy ureteroscopy and lithotripsy of stone fragments in the left ureter but no stent. 3. Generalized Weakness with Ambulatory Dysfunction with acute on chronic Debility and Frequent Falls -folic acid normal. B12 pending. PT and OT ordered 11/07: Patient is still generalized weak and required assistance for ambulation. 4. Morbid obesity; with BMI of 46.8 this admission -weight loss recommended. Repeat BMI 31.2 KG persquare meter, seems one of the reading either admission or current may be wrong 5. OA; with sciatica, chronic back pain plus history of cervical spine surgery: PT and OT 11/07: Patient needs 2 people assist and hardly able to move 10 feet therefore qualifies for usp. 6. Essential Hypertension; on lisinopril -discontinue lisinopril because of increasing creatinine. 7. Hyperlipidemia; on atorvastatin - Hold statin because of increased CK 8. DM-2; of unknown control on metformin - Hold metformin while admitted. ADA diet. FSBS q. AC/HS plus lowest-intensity SSI. 9. Chronic venous stasis dermatitis: Venous duplex ruled out bilateral DVT or bilateral GSV superficial thrombophlebitis 11. DVT prophylaxis -SCDs Discharge medication reconciliation done. Discharge follow-up instructions completed. Discharge process discussed with the patient and all questions were answered to patient's satisfaction. Follow with PCP in 1 to 2 weeks Total time spent, exact 35 minutes on discharge meds reconciliation, examination, coordination of care with nurses and ancillary staff, review of imaging and blood test and discussion with the patient on follow-up instructions. Allergies/Procedures Done in Hospital Allergies oxycodone HCl (From Percocet) Allergy (Intermediate, Verified 10/19/24 11:59) Other shaky, hot, sweaty, nauseated Type of Care/Length of Stay Estimated LOS: Convalescent Care Less Than 30 days Type of Care Needed: Skilled Rehab Potential: Good Prognosis: Good Additional Orders/Day of Discharge Day of Discharge: 11/07/24 Dietary and Speech Recommendations Dietitian Recommendations/Changes: As medically able, rec AMY to CHO Controlled/ Cardiac Will monitor need for changes in pt nutritional status and will provide ONS and diet education at time of follow up as indicated. Discharge Plan Admission Admit Date/Time: 11/04/24 20:45 Primary Reason for Your Visit: Fall, ambulatory dysfunction and debility. Left ureteric stone Attending Provider: Wellington Stone Primary Care Provider: Mitch Mcwilliams [employer] Providers: Jose Manuel Pham; Joel Baldwin Discharge Orders/Prescriptions Prescriptions: New cholecalciferol (vitamin D3) 125 mcg (5,000 unit) Capsule 125 mcg PO DAILY Qty: 0 0RF amoxicillin-pot clavulanate [Augmentin] 500-125 mg tablet 1 tab PO BID 3 Days Qty: 6 0RF Continued atorvastatin 40 MG tablet 40 mg PO QHS lisinopril 5 MG tablet 5 mg PO DAILY metformin 500 MG tablet 500 mg PO BID gabapentin 100 mg Capsule 100 mg PO TIDCM 30 Days Qty: 90 0RF tamsulosin 0.4 mg Capsule 0.4 mg PO DAILY@1730 14 Days Qty: 14 0RF Changed acetaminophen 500 mg Tablet 1,000 mg PO Q8H PRN PRN (Reason: Pain Score 1-3) Qty: 0 0RF Referrals / Follow Up: Jose Manuel Pham MD [Med Staff - Active Staff] - Within 2 Weeks Mitch Mcwilliams Chi, MD [Primary Care Provider] - Disposition Disposition (needs filled in before D/C Order can be placed): Home, Self Care (1) Rhabdomyolysis Qualifiers: Encounter type: initial encounter Rhabdomyolysis type: traumatic Qualified Code(s): T79.6XXA - Traumatic ischemia of muscle, initial encounter (2) Fall at home Qualifiers: Encounter type: initial encounter Qualified Code(s): W19.XXXA - Unspecified fall, initial encounter; Y92.009 - Unspecified place in unspecified non- institutional (private) residence as the place of occurrence of the external cause (6) Fever Qualifiers: Fever type: due to other condition Qualified Code(s): R50.81 - Fever presenting with conditions classified elsewhere (8) BPH (benign prostatic hyperplasia) Qualifiers: Lower urinary tract symptom presence: unspecified whether lower urinary tract symptoms present Qualified Code(s): N40.0 - Benign prostatic hyperplasia without lower urinary tract symptoms 11/07/24 1520 Cosigner Signature (if applicable): CC: Dr. Joel Baldwin DO; Dr. Jose Manuel Pham MD; Dr. Mitch Mcwilliams MD ~ [facility]04-02-2025 [facility]04-01-2025 Progress note Author Wellington Stone [facility] Note Date/Time November 06, 2024 4:01 pm [facility] Medical Records Department [address] [place] [address] Progress Note - Hospitalist 11/06/24 1556 MR#: [id number] Acct: [id number] Name: AARON CHAPA Rep #:[id number] : 1950 74 From: Wellington Orellana PCP: Dr. Mitch Mcwilliams MD Status:ADM I N Location: [place] [address] Reason for Visit Reason for Visit: Diagnoses Morbid (severe) obesity due to excess calories (11/04/24) Tubulo-interstitial nephritis, not specified as acute or chronic (11/04/24) Calculus of ureter (11/04/24) Acute cystitis with hematuria (11/04/24) Benign prostatic hyperplasia without lower urinary tract symptoms (11/04/24) Chronic prostatitis (11/04/24) Difficulty in walking, not elsewhere classified (11/04/24) Fever presenting with conditions classified elsewhere (11/04/24) Weakness (11/04/24) Traumatic ischemia of muscle, initial encounter (11/04/24) Unspecified fall, initial encounter (11/04/24) Unspecified place in unspecified non-institutional (private) residence as the place of occurrence of the external cause (11/04/24) Body mass index [BMI] 45.0-49.9, adult (11/04/24) Objective Data Objective Data Vital Signs: Vital Signs Temp Pulse Resp BP Pulse Ox O2 Del Method O2 Flow Rate 98 F 87 16 148/80 H 95 Room Air 95 11/06/24 14:00 11/06/24 14:28 11/06/24 14:00 11/06/24 14:00 11/06/24 10:59 11/06/24 14:00 11/06/24 14:00 Oxygen Flow Rate (L/min) 95 Oxygen Delivery Method Room Air Weight: 209 lb 14.081 oz Body Mass Index (BMI) 30.9 Intake & Output: Intake and Output for Last 24 Hours 11/04/24 11/05/24 11/06/24 23:59 23:59 23:59 Intake Total 1350 / 1350 3080.75 / 3280.75 1304 / 1304 Output Total 700 / 700 Balance 1350 / 1350 3080.75 / 2980.75 604 / 604 Lab / Micro Data 11/06/24 06:05 11/06/24 06:05 Labs: Laboratory Results - last 24 hr 11/05/24 16:51: POC Glucose 99 11/05/24 21:40: POC Glucose 129 H 11/06/24 04:55: POC Glucose 109 H 11/06/24 06:05: WBC 6.9, RBC 3.00 L, Hgb 9.7 L, Hct 29.5 L, MCV 98.3 H, MCH 32.3 H, MCHC 32.9, RDW Std Deviation 47.0 H, RDW Coeff of Javid 13.1, Plt Count 172, MPV 9.9, Immature Gran % (Auto) 2.600 H, Neut % (Auto) 74.7 H, Lymph % (Auto) 10.1 L, [place] % (Auto) 12.4 H, Eos % (Auto) 0.1, Baso % (Auto) 0.1, Absolute Neuts (auto) 5.2, Absolute Lymphs (auto) 0.70 L, Nucleated RBC % 0, Sodium 135, Potassium 4.0, Chloride 106, Carbon Dioxide 17.4 L, Anion Gap 12, BUN 38 H, Creatinine 1.79 H, Estim Creat Clear Calc 39.98 L, Est GFR (MDRD) Non-Af 39 L, BUN/Creatinine Ratio 21.1 H, Glucose 125 H, Calcium 7.8, Phosphorus 2.4 L 11/06/24 11:27: POC Glucose 163 H Micro: Microbiology 11/04/24 21:02 Blood Culture (Wb) - Arm Left Blood Culture - Preliminary No growth in 48 hours. 11/04/24 21:00 Blood Culture (Wb) - Line Draw Blood Culture - Preliminary No growth in 48 hours. 11/04/24 18:50 Urine, Clean Catch Urine Culture - Preliminary Gram negative kelly Radiography Diagnostic Testing: Radiology Impression Venous Doppler Study 11/04/24 22:46 Interpretation Summary Deep veins of the bilateral lower extremities are patent and compressible segmentally. There is no evidence of bilateral lower extremity deep vein thrombosis. The bilateral great saphenous veins appear patent and compressible segmentally. Ordering Physician: Joel Baldwin Referring Physician: Mitch Mcwilliams Chi Performed By: Mary Gotti, EFRACS, RVT Physical Exam Narrative Seen and examined Patient abdominal pain is resolved. Had left ureteric stone lithotripsy yesterday Patient admitted with generalized weakness, recurrent fall. Has poor balance. Patient has also found to have left distal ureter multiple stones. Recently right ureteric stent was removed after treatment for right kidney stones. Denies burning micturition/dysuria Physical exam General: Alert, Oriented x3, Cooperative HEENT: Atraumatic, PERRLA, EOMI, Normocephalic Oral: No Gingival or Mucosal Lesions/ Ulcerations Neck: Supple, No JVD, Negative Carotid Bruits. C-spine surgical scar Chest wall/Lungs: Air entry diminished in bilateral lung bases. No crepitation/rhonchi Cardiovascular: Regular rate, Regular Rhythm, Normal S1, Normal S2, No M/G/R Abdomen: Bowel Sounds Present, Soft, Non-Distended : No dysuria. No acute bilateral renal angle tenderness or along course of ureter Extremities: No edema, Capillary Refill Less than 3 Seconds Skin: No rashes, No breakdown Musculoskeletal: Muscle strength 4+/5 at knees and hip joints. No Tenderness to Palpation of Joints or Extremities Neurological: Cranial nerves II-XII grossly intact, DTR 2+/4. No acute focal neurological deficit. Psych/Mental Status: Flat affect Assessment & Plan Assessment/Plan (1) Rhabdomyolysis: QUALIFIERS: Rhabdomyolysis type: traumatic Encounter type: initial encounter Qualified Code(s): T79.6XXA - Traumatic ischemia of muscle, initial encounter (2) Fall at home: QUALIFIERS: Encounter type: initial encounter Qualified Code(s): W19.XXXA - Unspecified fall, initial encounter; Y92.009 - Unspecified place in unspecified non-institutional (private) residence as the place of occurrence of the external cause (3) Acute cystitis with hematuria: (4) Calculus of left ureter: (5) Pyelonephritis of left kidney: (6) Fever: QUALIFIERS: Fever type: due to other condition Qualified Code(s): R50.81 - Fever presenting with conditions classified elsewhere (7) Chronic prostatitis: (8) BPH (benign prostatic hyperplasia): QUALIFIERS: Lower urinary tract symptom presence: unspecified whether lower urinary tract symptoms present Qualified Code(s): N40.0 - Benign prostatic hyperplasia without lower urinary tract symptoms (9) Generalized weakness: (10) Ambulatory dysfunction: (11) Morbid obesity with BMI of 45.0-49.9, adult: PLAN: Plan 1. Elevated CK of 2,755 U/L present on admission consistent with mild rhabdomyolysis after recent Fall with prolonged down time with CKD stage IIIb - Admit to general medical floor. Aggressive IV fluid resuscitation. Creatinine increased from 1.67-1.79. Baseline around 1.4-1.8. 11/06: Repeat CK tomorrow morning. Patient will need rehab because of poor balance and unsteady gait and high risk of fall 2. Abnormal UA with suggestion of possible left pyelonephritis left ureteric calculus: UA positive of LE 500, WBC 10?25 cells, RBC 10?25, nitrite negative. CT shows left obstructive uropathy with associated left periureteral fat stranding suggestive of possible pyelonephritis. Bilateral nonobstructive nephrolithiasis. Right hydrocele. Prostatic calcifications. 11/06: Urine culture shows GNR 11,000?24,000 but will continue antibiotics as patient had urologic intervention. Patient recently had left renal calculus; s/p ECSWL and stent removal by Dr. Pham of urology on October 19, 2024: Patient was spiking temperature 92.3 ?F after ceftriaxone. Initially started on Zosyn but will change to IV Unasyn because Zosyn increased tubular creatinine secretion therefore pseudo increase in creatinine. Previous urine culture in September 2024 was negative but before that was positive for Enterococcus less than 1000 colonies Corrective Therapy Aide consulted for left ureteric stent 11/06: He had cystoscopy ureteroscopy and lithotripsy of stone fragments in the left ureter but no stent. 3. Generalized Weakness with Ambulatory Dysfunction with acute on chronic Debility and Frequent Falls -folic acid normal. B12 pending. PT and OT ordered 4. Morbid obesity; with BMI of 46.8 this admission adding to the burden of disease outlined from #1 - #3 - Weight loss will be recommended. Check TSH. This complicates his case and may hamper recovery. 5. OA; with sciatica, chronic back pain plus history of cervical spine surgery: PT and OT 6. Essential Hypertension; on lisinopril -discontinue lisinopril because of increasing creatinine. 7. Hyperlipidemia; on atorvastatin - Hold statin because of increased CK 8. DM-2; of unknown control on metformin - Hold metformin while admitted. ADA diet. FSBS q. AC/HS plus lowest-intensity SSI. 9. History of MRSA - Noted. 10. Chronic venous stasis dermatitis: Venous duplex ruled out bilateral DVT or bilateral GSV superficial thrombophlebitis 11. DVT prophylaxis -SCDs Charges/Coding Visit Charges Inpatient E&M: 38279 Subs Hosp L2 11/06/24 1601 <Electronically signed by Wellington Stone MD> Cosigner Signature (if applicable): CC: ~ Signed [facility] Work Phone: [phone]) 581-621204-01-2025 Progress note [facility] Medical Records Department [address] [place] [address] Progress Note - Hospitalist 11/06/24 4643 MR#: [id number] Acct: [id number] Name: AARON CHAPA HELLEN Rep #:[id number] : 1950 74 From: Wellington Orellana PCP: Dr. Mitch Mcwilliams MD Status:ADM I N Location: [facility] [id number] Reason for Visit Reason for Visit: Diagnoses Morbid (severe) obesity due to excess calories (11/04/24) Tubulo-interstitial nephritis, not specified as acute or chronic (11/04/24) Calculus of ureter (11/04/24) Acute cystitis with hematuria (11/04/24) Benign prostatic hyperplasia without lower urinary tract symptoms (11/04/24) Chronic prostatitis (11/04/24) Difficulty in walking, not elsewhere classified (11/04/24) Fever presenting with conditions classified elsewhere (11/04/24) Weakness (11/04/24) Traumatic ischemia of muscle, initial encounter (11/04/24) Unspecified fall, initial encounter (11/04/24) Unspecified place in unspecified non-institutional (private) residence as the place of occurrence of the external cause (11/04/24) Body mass index [BMI] 45.0-49.9, adult (11/04/24) Objective Data Objective Data Vital Signs: Vital Signs Temp Pulse Resp BP Pulse Ox O2 Del Method O2 Flow Rate 98 F 87 16 148/80 H 95 Room Air 95 11/06/24 14:00 11/06/24 14:28 11/06/24 14:00 11/06/24 14:00 11/06/24 10:59 11/06/24 14:00 11/06/24 14:00 Oxygen Flow Rate (L/min) 95 Oxygen Delivery Method Room Air Weight: 209 lb 14.081 oz Body Mass Index (BMI) 30.9 Intake & Output: Intake and Output for Last 24 Hours 11/04/24 11/05/24 11/06/24 23:59 23:59 23:59 Intake Total 1350 / 1350 3080.75 / 3280.75 1304 / 1304 Output Total 700 / 700 Balance 1350 / 1350 3080.75 / 2980.75 604 / 604 Lab / Micro Data 11/06/24 06:05 11/06/24 06:05 Labs: Laboratory Results - last 24 hr 11/05/24 16:51: POC Glucose 99 11/05/24 21:40: POC Glucose 129 H 11/06/24 04:55: POC Glucose 109 H 11/06/24 06:05: WBC 6.9, RBC 3.00 L, Hgb 9.7 L, Hct 29.5 L, MCV 98.3 H, MCH 32.3 H, MCHC 32.9, RDW Std Deviation 47.0 H, RDW Coeff of Javid 13.1, Plt Count 172, MPV 9.9, Immature Gran % (Auto) 2.600 H,Neut % (Auto) 74.7 H, Lymph % (Auto) 10.1 L, [place] % (Auto) 12.4 H, Eos % (Auto) 0.1, Baso % (Auto) 0.1, Absolute Neuts (auto) 5.2, Absolute Lymphs (auto) 0.70 L, Nucleated RBC % 0, Sodium 135, Potassium 4.0, Chloride 106, Carbon Dioxide 17.4 L, Anion Gap 12, BUN 38 H, Creatinine 1.79 H, Estim CreatClear Calc 39.98 L, Est GFR (MDRD) Non-Af 39 L, BUN/Creatinine Ratio 21.1 H, Glucose 125 H, Calcium7.8, Phosphorus 2.4 L 11/06/24 11:27: POC Glucose 163 H Micro: Microbiology 11/04/24 21:02 Blood Culture (Wb) - Arm Left Blood Culture - Preliminary No growth in 48 hours. 11/04/24 21:00 Blood Culture (Wb) - Line Draw Blood Culture - Preliminary No growth in 48 hours. 11/04/24 18:50 Urine, Clean Catch Urine Culture - Preliminary Gram negative kelly Radiography Diagnostic Testing: Radiology Impression Venous Doppler Study 11/04/24 22:46 Interpretation Summary Deep veins of the bilateral lower extremities are patent and compressible segmentally. There is no evidence of bilateral lower extremity deep vein thrombosis. The bilateral great saphenous veins appear patent and compressible segmentally. Ordering Physician: Joel Baldwin Referring Physician: Mitch Mcwilliams Chi Performed By: Mary Gotti, RDCS, RVT Physical Exam Narrative Seen and examined Patient abdominal pain is resolved. Had left ureteric stone lithotripsy yesterday Patient admitted with generalized weakness, recurrent fall. Has poor balance. Patient has also found to have left distal ureter multiple stones. Recently right ureteric stent was removed after treatment for right kidney stones. Denies burning micturition/dysuria Physical exam General: Alert, Oriented x3, Cooperative HEENT: Atraumatic, PERRLA, EOMI, Normocephalic Oral: No Gingival or Mucosal Lesions/ Ulcerations Neck: Supple, No JVD, Negative Carotid Bruits. C-spine surgical scar Chest wall/Lungs: Air entry diminished in bilateral lung bases. No crepitation/rhonchi Cardiovascular: Regular rate, Regular Rhythm, Normal S1, Normal S2, No M/G/R Abdomen: Bowel Sounds Present, Soft, Non-Distended : No dysuria. No acute bilateral renal angle tenderness or along course of ureter Extremities: No edema, Capillary Refill Less than 3 Seconds Skin: No rashes, No breakdown Musculoskeletal: Muscle strength 4+/5 at knees and hip joints. No Tenderness to Palpation of Jointsor Extremities Neurological: Cranial nerves II-XII grossly intact, DTR 2+/4. No acute focal neurological deficit. Psych/Mental Status: Flat affect Assessment & Plan Assessment/Plan (1) Rhabdomyolysis: QUALIFIERS: Rhabdomyolysis type: traumatic Encounter type: initial encounter Qualified Code(s): T79.6XXA - Traumatic ischemia of muscle, initial encounter (2) Fall at home: QUALIFIERS: Encounter type: initial encounter Qualified Code(s): W19.XXXA - Unspecified fall, initial encounter; Y92.009 - Unspecified place in unspecified non-institutional (private) residence as the place of occurrence of the external cause (3) Acute cystitis with hematuria: (4) Calculus of left ureter: (5) Pyelonephritis of left kidney: (6) Fever: QUALIFIERS: Fever type: due to other condition Qualified Code(s): R50.81 - Fever presenting with conditions classified elsewhere (7) Chronic prostatitis: (8) BPH (benign prostatic hyperplasia): QUALIFIERS: Lower urinary tract symptom presence: unspecified whether lower urinary tract symptoms present Qualified Code(s): N40.0 - Benign prostatic hyperplasia without lower urinary tract symptoms (9) Generalized weakness: (10) Ambulatory dysfunction: (11) Morbid obesity with BMI of 45.0-49.9, adult: PLAN: Plan 1. Elevated CK of 2,755 U/L present on admission consistent with mild rhabdomyolysis after recent Fall with prolonged down time with CKD stage IIIb - Admit to general medical floor. Aggressive IV fluid resuscitation. Creatinine increased from 1.67-1.79. Baseline around 1.4-1.8. 11/06: Repeat CK tomorrow morning. Patient will need rehab because of poor balance and unsteady gait and high risk of fall 2. Abnormal UA with suggestion of possible left pyelonephritis left ureteric calculus: UA positive of LE 500, WBC 10?25 cells, RBC 10?25, nitrite negative. CT shows left obstructive uropathy with associated left periureteral fat stranding suggestive of possible pyelonephritis. Bilateral nonobstructive nephrolithiasis. Right hydrocele. Prostatic calcifications. 11/06: Urine culture shows GNR 11,000?24,000 but will continue antibiotics as patient had urologic intervention. Patient recently had left renal calculus; s/p ECSWL and stent removal by Dr. Pham of urology on October 19, 2024: Patient was spiking temperature 92.3 ?F after ceftriaxone. Initially started on Zosynbut will change to IV Unasyn because Zosyn increased tubular creatinine secretion therefore pseudo increase in creatinine. Previous urine culture in September 2024 was negative but before that was positive for Enterococcus less than 1000 colonies Corrective Therapy Aide consulted for left ureteric stent 11/06: He had cystoscopy ureteroscopy and lithotripsy of stone fragments in the left ureter but no stent. 3. Generalized Weakness with Ambulatory Dysfunction with acute on chronic Debility and Frequent Falls -folic acid normal. B12 pending. PT and OT ordered 4. Morbid obesity; with BMI of 46.8 this admission adding to the burden of disease outlined from #1- #3 - Weight loss will be recommended. Check TSH. This complicates his case and may hamper recovery. 5. OA; with sciatica, chronic back pain plus history of cervical spine surgery: PT and OT 6. Essential Hypertension; on lisinopril -discontinue lisinopril because of increasing creatinine. 7. Hyperlipidemia; on atorvastatin - Hold statin because of increased CK 8. DM-2; of unknown control on metformin - Hold metformin while admitted. ADA diet. FSBS q. AC/HS plus lowest-intensity SSI. 9. History of MRSA - Noted. 10. Chronic venous stasis dermatitis: Venous duplex ruled out bilateral DVT or bilateral GSV superficial thrombophlebitis 11. DVT prophylaxis -SCDs Charges/Coding Visit Charges Inpatient E&M: 68605 Subs Hosp L2 11/06/24 1601 Cosigner Signature (if applicable): CC: ~ Signed [facility]03-31-2025 Progress note Author Wellington Stone [facility] Note Date/Time November 05, 2024 3:1 3pm [facility] Medical Records Department [address] [place] [address] Progress Note - Hospitalist 11/05/24 8641 MR#: [id number] Acct: [id number] Name: AARON CHAPA Rep #:[id number] : 1950 74 From: Wellington Orellana PCP: Dr. Mitch Mcwilliams MD Status:ADM I N Location: [place] [address] Reason for Visit Reason for Visit: Diagnoses Morbid (severe) obesity due to excess calories (11/04/24) Tubulo-interstitial nephritis, not specified as acute or chronic (11/04/24) Calculus of ureter (11/04/24) Acute cystitis with hematuria (11/04/24) Benign prostatic hyperplasia without lower urinary tract symptoms (11/04/24) Chronic prostatitis (11/04/24) Difficulty in walking, not elsewhere classified (11/04/24) Fever presenting with conditions classified elsewhere (11/04/24) Weakness (11/04/24) Traumatic ischemia of muscle, initial encounter (11/04/24) Unspecified fall, initial encounter (11/04/24) Unspecified place in unspecified non-institutional (private) residence as the place of occurrence of the external cause (11/04/24) Body mass index [BMI] 45.0-49.9, adult (11/04/24) Objective Data Objective Data Vital Signs: Vital Signs Temp Pulse Resp BP Pulse Ox O2 Del Method O2 Flow Rate 97.9 F 88 16 140/79 H 95 Room Air 0 11/05/24 14:01 11/05/24 14:01 11/05/24 14:01 11/05/24 14:01 11/05/24 14:01 11/05/24 14:01 11/05/24 11:36 Oxygen Flow Rate (L/min) 0 Oxygen Delivery Method Room Air Weight: 211 lb Body Mass Index (BMI) 31.1 Intake & Output: Intake and Output for Last 24 Hours 11/03/24 11/04/24 11/05/24 23:59 23:59 23:59 Intake Total 1350 / 1350 2168.75 / 2168.75 Balance 1350 / 1350 2168.75 / 2168.75 Lab / Micro Data 11/05/24 04:16 11/05/24 04:16 Labs: Laboratory Results - last 24 hr 11/04/24 17:20: WBC 11.0, RBC 3.46 L, Hgb 11.3 L, Hct 33.5 L, MCV 96.8 H, MCH 32.7 H, MCHC 33.7, RDW Std Deviation 44.0 H, RDW Coeff of Javid 12.7, Plt Count 221, MPV 9.5, Immature Gran % (Auto) 0.700, Neut % (Auto) 89.7 H, Lymph % (Auto) 3.6 L, [place] % (Auto) 5.9, Eos % (Auto) 0.0, Baso % (Auto) 0.1, Absolute Neuts (auto) 9.8 H, Absolute Lymphs (auto) 0.40 L, Nucleated RBC % 0, Sodium 136, Potassium 4.3, Chloride 105, Carbon Dioxide 18.3 L, Anion Gap 13, BUN 35 H, Creatinine 1.67 H, Estim Creat Clear Calc 36.85 L, Est GFR (MDRD) Non-Af 42 L, BUN/Creatinine Ratio 20.9 H, Glucose 115 H, Hemoglobin A1c 6.6, Calcium 8.7, Magnesium 1.5, Total Bilirubin 0.98, AST 109 H, ALT 35, Alkaline Phosphatase 54, Total Creatine Kinase 2755 H, Total Protein 6.5, Albumin 3.6, Globulin 2.8, Albumin/Globulin Ratio 1.3, Lipase 14, Vitamin B12 483, TSH 0.420 11/04/24 18:50: Urine Color Yellow, Urine Clarity Sl. Cloudy, Urine pH 5.0, Ur Specific [place] 1.015, Urine Protein 100 H, Urine Glucose (UA) Normal, Urine Ketones Negative, Urine Occult Blood 250 H, Urine Nitrite Negative, Urine Bilirubin Negative, Urine Urobilinogen Normal, Ur Leukocyte Esterase 500 H, Urine RBC 10-25 SEEN, Urine WBC 10-25 SEEN, Ur Squamous Epith Cells 0 SEEN, Urine Bacteria 3+, Fine Granular Casts 0-5 SEEN, Urine Mucus 0 SEEN 11/04/24 20:58: Lactic Acid 1.0 11/04/24 21:56: POC Glucose 110 H 11/04/24 22:06: D-Dimer Quant (PE/DVT) 3.60 H*, Serum Folate 6.89 11/05/24 04:16: WBC 7.3, RBC 3.39 L, Hgb 10.8 L, Hct 33.4 L, MCV 98.5 H, MCH 31.9, MCHC 32.3, RDW Std Deviation 46.2 H, RDW Coeff of Javid 13.0, Plt Count 193, MPV 9.4, Immature Gran % (Auto) 1.400 H, Neut % (Auto) 85.5 H, Lymph % (Auto) 5.3 L, [place] % (Auto) 7.7, Eos % (Auto) 0.0, Baso % (Auto) 0.1, Absolute Neuts (auto) 6.3, Absolute Lymphs (auto) 0.39 L, Nucleated RBC % 0, Sodium 136, Potassium 4.9, Chloride 107, Carbon Dioxide 17.2 L, Anion Gap 12, BUN 38 H, Creatinine 1.79 H, Estim Creat Clear Calc 40.12 L, Est GFR (MDRD) Non-Af 39 L, BUN/Creatinine Ratio 20.9 H, Glucose 119 H, Calcium 8.1, Phosphorus 2.5 L, Total Bilirubin 0.69, AST 130 H, ALT 44, Alkaline Phosphatase 49, Total Creatine Kinase 2794 H, Total Protein 5.8 L, Albumin 3.3 L, Globulin 2.6, Albumin/Globulin Ratio 1.3, Triglycerides 122, Cholesterol 104, LDL Cholesterol, Calc 38, VLDL Cholesterol 24, HDL Cholesterol 42, Cholesterol/HDL Ratio 2.51 11/05/24 05:09: POC Glucose 121 H Radiography Diagnostic Testing: Radiology Impression Brain CT 11/04/24 17:07 IMPRESSION: No acute intracranial findings. Age-appropriate senescent change. Mild inflammatory changes in the ethmoid and left sphenoid sinus. Reading Location: [employer] Cervical Spine CT 11/04/24 17:07 IMPRESSION: Status post dorsal fusion with instrumentation, C3 through C7. No acute fractures. Multilevel degenerative disc disease. Multilevel foraminal narrowing and facet arthropathy. Reading Location: [employer] Chest/Abdomen/Pelvis CT 11/04/24 17:07 IMPRESSION: 1. Parenchymal scarring in the lung bases. 2. Severe coronary artery calcifications. 3. Suspicion of cholelithiasis. 4. Left obstructive uropathy with moderate hydroureteronephrosis. Associated left perirenal fat stranding. 5. Bilateral nonobstructive nephrolithiasis. 6. Chronic prostatitis. 7. Right hydrocele. 8. Diverticulosis. 9. Bilateral fat containing inguinal hernias. 10. Other nonacute findings detailed above. Reading Location: [employer] Hip/Pelvis X-Ray 11/04/24 18:00 IMPRESSION: Severe osteoarthritis involving the right hip. Reading Location: [facility] Chest CTA 11/04/24 22:40 IMPRESSION: No evidence of pulmonary embolism. Large right renal cyst. Stable chronic changes in the bilateral lungs. Reading Location: [facility] Physical Exam Narrative Seen and examined Patient admitted with generalized weakness, recurrent fall. Has poor balance. CK high about 2800 units per liter. Patient has also found to have left distal ureter multiple stones. Recently right ureteric stent was removed after treatment for right kidney stones. Denies burning micturition/dysuria Physical exam General: Alert, Oriented x3, Cooperative HEENT: Atraumatic, PERRLA, EOMI, Normocephalic Oral: No Gingival or Mucosal Lesions/ Ulcerations Neck: Supple, No JVD, Negative Carotid Bruits. C-spine surgical scar Chest wall/Lungs: Air entry diminished in bilateral lung bases. No crepitation/rhonchi Cardiovascular: Regular rate, Regular Rhythm, Normal S1, Normal S2, No M/G/R Abdomen: Bowel Sounds Present, Soft, Non-Distended : No dysuria. Tenderness present over left lower quadrant/renal angle. Extremities: No edema, Capillary Refill Less than 3 Seconds Skin: No rashes, No breakdown Musculoskeletal: Muscle strength 4+/5 at knees and hip joints. No Tenderness to Palpation of Joints or Extremities Neurological: Cranial nerves II-XII grossly intact, DTR 2+/4. No acute focal neurological deficit. Psych/Mental Status: Flat affect Assessment & Plan Assessment/Plan (1) Rhabdomyolysis: QUALIFIERS: Rhabdomyolysis type: traumatic Encounter type: initial encounter Qualified Code(s): T79.6XXA - Traumatic ischemia of muscle, initial encounter (2) Fall at home: QUALIFIERS: Encounter type: initial encounter Qualified Code(s): W19.XXXA - Unspecified fall, initial encounter; Y92.009 - Unspecified place in unspecified non-institutional (private) residence as the place of occurrence of the external cause (3) Acute cystitis with hematuria: (4) Calculus of left ureter: (5) Pyelonephritis of left kidney: (6) Fever: QUALIFIERS: Fever type: due to other condition Qualified Code(s): R50.81 - Fever presenting with conditions classified elsewhere (7) Chronic prostatitis: (8) BPH (benign prostatic hyperplasia): QUALIFIERS: Lower urinary tract symptom presence: unspecified whether lower urinary tract symptoms present Qualified Code(s): N40.0 - Benign prostatic hyperplasia without lower urinary tract symptoms (9) Generalized weakness: (10) Ambulatory dysfunction: (11) Morbid obesity with BMI of 45.0-49.9, adult: PLAN: Plan 1. Elevated CK of 2,755 U/L present on admission consistent with mild rhabdomyolysis after recent Fall with prolonged down time with CKD stage IIIb - Admit to general medical floor. Aggressive IV fluid resuscitation. Creatinine increased from 1.67-1.79. Baseline around 1.4-1.8. 2. Abnormal UA with suggestion of possible left pyelonephritis left ureteric calculus: UA positive of LE 500, WBC 10?25 cells, RBC 10?25, nitrite negative. CT shows left obstructive uropathy with associated left periureteral fat stranding suggestive of possible pyelonephritis. Bilateral nonobstructive nephrolithiasis. Right hydrocele. Prostatic calcifications. Patient recently had left renal calculus; s/p ECSWL and stent removal by Dr. Pham of urology on October 19, 2024: Patient was spiking temperature 92.3 ?F after ceftriaxone. Initially started on Zosyn but will change to IV Unasyn because Zosyn increased tubular creatinine secretion therefore pseudo increase in creatinine. Previous urine culture in September 2024 was negative but before that was positive for Enterococcus less than 1000 colonies Corrective Therapy Aide consulted for left ureteric stent 3. Generalized Weakness with Ambulatory Dysfunction with acute on chronic Debility and Frequent Falls -folic acid normal. B12 pending. PT and OT ordered 4. Morbid obesity; with BMI of 46.8 this admission adding to the burden of disease outlined from #1 - #3 - Weight loss will be recommended. Check TSH. This complicates his case and may hamper recovery. 5. OA; with sciatica, chronic back pain plus history of cervical spine surgery: PT and OT 6. Essential Hypertension; on lisinopril -discontinue lisinopril because of increasing creatinine. 7. Hyperlipidemia; on atorvastatin - Hold statin because of increased CK 8. DM-2; of unknown control on metformin - Hold metformin while admitted. ADA diet. FSBS q. AC/HS plus lowest-intensity SSI. 9. History of MRSA - Noted. 10. Chronic venous stasis dermatitis 11. DVT prophylaxis -SCDs Charges/Coding Visit Charges Inpatient E&M: 36810 Subs Hosp L2 11/05/24 1513 <Electronically signed by Wellignton Stone MD> Cosigner Signature (if applicable): CC: ~ Signed [facility] Work Phone: 1(153) 613-963203-31-2025 Consult note Author Santos Mahmood [facility] Note Date/Time November 05, 2024 1:4 6pm [facility] Medical Records Department [address] [place] [address] Anesthesia Postop Eval II 11/05/24 1346 MR#: [id number] Acct: [id number] Name: AARON CHAPA Rep #:[id number] : 1950 74 From: Santos Mahmood MD PCP: Dr. Mitch Mcwilliams MD Status:ADM I N Y Race: C Location: [facility] [id number] -[id number] Anesthesia Postop Eval I Sum Postop Eval Completion status Anesthesia document: Postop Eval 1 completed: Yes Anesthesia Postop Eval I Summary Anesthesia Postop Eval I Summary: Anesthesia Postop Eval I: Assessment Summary Airway patent Yes 11/05/24 13:13 PHARMACY DELIVERY DRIVER.CSIR Spontaneous unlabored Yes 11/05/24 13:13 PHARMACY DELIVERY DRIVER.CSIR respirations Mental status nausea No 11/05/24 13:13 PHARMACY DELIVERY DRIVER.CSIR Vomiting No 11/05/24 13:13 PHARMACY DELIVERY DRIVER.CSIR Anesthesia Postop Eval I: Fluid Summary Crystalloid volume administer 800 11/05/24 13:13 PHARMACY DELIVERY DRIVER.CSIR (ml) Colloids volume administered ( ml) Blood Product volume administered (ml) Total IV fluid infused 800 11/05/24 13:13 PHARMACY DELIVERY DRIVER.CSIR Anesthesia Postop Eval I: Summary Notes Anesthesia Complication No 11/05/24 13:13 PHARMACY DELIVERY DRIVER.CSIR Anesthesia Complication Comment: Post-operative progress note Anesthesia: Postop Eval II Evaluation Mental status: Awake Pain Level: 0 nausea: No Vomiting: No 11/05/24 1346 <Electronically signed by Santos Mahmood MD > Date _ Santos Mahmood MD Cosigner Signature: Date CC: ~ Signed [facility] Work Phone: 1(123) [phone] Consult note Author Leni Fraga [facility] Note Date/Time November 05, 2024 1:1 4pm [facility] Medical Records Department [address] [place] [address] Anesthesia Postop Eval I 11/05/24 1313 MR#: [id number] Acct: [id number] Name: AARON CHAPA Rep #:[id number] : 1950 74 From: Leni Fraga PCP: Dr. Mitch Mwcilliams MD Status:ADM I N Y Race: C Location: [place] [address] Anesthesia: Postop Eval I Current Vital Signs Temperature: 97.8 F Pulse Rate: 91 Blood Pressure: 139/76 Respiratory Rate: 18 Pulse Ox: 94 Assessment Airway patent: Yes Spontaneous unlabored respirations: Yes nausea: No Vomiting: No Anesthesia Complication: No Fluid Hydration Crystalloid volume administer (ml): 800 Total IV fluid infused: 800 Progress Note Anesthesia document: Postop Eval 1 completed: Yes 11/05/24 1314 <Electronically signed by Leni aguilar> Date _ Leni Spencer Signature: Date CC: ~ Signed [facility] Work Phone: [phone]) [phone] Progress note [facility] Medical Records Department [address] [place] [address] Progress Note - Hospitalist 11/05/24 2630 MR#: [id number] Acct: [id number] Name: AARON CHAPA Rep #:[id number] : 1950 74 From: Wellington Orellana PCP: Dr. Mitch Mcwilliams MD Status:ADM I N Location: [place] [address] Reason for Visit Reason for Visit: Diagnoses Morbid (severe) obesity due to excess calories (11/04/24) Tubulo-interstitial nephritis, not specified as acute or chronic (11/04/24) Calculus of ureter (11/04/24) Acute cystitis with hematuria (11/04/24) Benign prostatic hyperplasia without lower urinary tract symptoms (11/04/24) Chronic prostatitis (11/04/24) Difficulty in walking, not elsewhere classified (11/04/24) Fever presenting with conditions classified elsewhere (11/04/24) Weakness (11/04/24) Traumatic ischemia of muscle, initial encounter (11/04/24) Unspecified fall, initial encounter (11/04/24) Unspecified place in unspecified non-institutional (private) residence as the place of occurrence of the external cause (11/04/24) Body mass index [BMI] 45.0-49.9, adult (11/04/24) Objective Data Objective Data Vital Signs: Vital Signs Temp Pulse Resp BP Pulse Ox O2 Del Method O2 Flow Rate 97.9 F 88 16 140/79 H 95 Room Air 0 11/05/24 14:01 11/05/24 14:01 11/05/24 14:01 11/05/24 14:01 11/05/24 14:01 11/05/24 14:01 11/05/24 11:36 Oxygen Flow Rate (L/min) 0 Oxygen Delivery Method Room Air Weight: 211 lb Body Mass Index (BMI) 31.1 Intake & Output: Intake and Output for Last 24 Hours 11/03/24 11/04/24 11/05/24 23:59 23:59 23:59 Intake Total 1350 / 1350 2168.75 / 2168.75 Balance 1350 / 1350 2168.75 / 2168.75 Lab / Micro Data 11/05/24 04:16 11/05/24 04:16 Labs: Laboratory Results - last 24 hr 11/04/24 17:20: WBC 11.0, RBC 3.46 L, Hgb 11.3 L, Hct 33.5 L, MCV 96.8 H, MCH 32.7 H, MCHC 33.7, RDW Std Deviation 44.0 H, RDW Coeff of Javid 12.7, Plt Count 221, MPV 9.5, Immature Gran % (Auto) 0.700,Neut % (Auto) 89.7 H, Lymph % (Auto) 3.6 L, [place] % (Auto) 5.9, Eos % (Auto) 0.0, Baso % (Auto) 0.1,Absolute Neuts (auto) 9.8 H, Absolute Lymphs (auto) 0.40 L, Nucleated RBC % 0, Sodium 136, Potassium 4.3, Chloride 105, Carbon Dioxide 18.3 L, Anion Gap 13, BUN 35 H, Creatinine 1.67 H, Estim Creat Clear Calc 36.85 L, Est GFR (MDRD) Non-Af 42 L, BUN/Creatinine Ratio 20.9 H, Glucose 115 H, Hemoglobin A1c 6.6, Calcium 8.7, Magnesium 1.5, Total Bilirubin 0.98, AST 109 H, ALT 35, Alkaline [id number], Total Creatine Kinase 2755 H, Total Protein 6.5, Albumin 3.6, Globulin 2.8, Albumin/Globulin Ratio 1.3, Lipase 14, Vitamin B12 483, TSH 0.420 11/04/24 18:50: Urine Color Yellow, Urine Clarity Sl. Cloudy, Urine pH 5.0, Ur Specific [place] 1.015, Urine Protein 100 H, Urine Glucose (UA) Normal, Urine Ketones Negative, Urine Occult Blood 250 H, Urine Nitrite Negative, Urine Bilirubin Negative, Urine Urobilinogen Normal, Ur Leukocyte [id number] H, Urine RBC 10-25 SEEN, Urine WBC 10-25 SEEN, Ur Squamous Epith Cells 0 SEEN, Urine Bacteria 3+, Fine Granular Casts 0-5 SEEN, Urine Mucus 0 SEEN 11/04/24 20:58: Lactic Acid 1.0 11/04/24 21:56: POC Glucose 110 H 11/04/24 22:06: D-Dimer Quant (PE/DVT) 3.60 H*, Serum Folate 6.89 11/05/24 04:16: WBC 7.3, RBC 3.39 L, Hgb 10.8 L, Hct 33.4 L, MCV 98.5 H, MCH 31.9, MCHC 32.3, RDW Std Deviation 46.2 H, RDW Coeff of Javid 13.0, Plt Count 193, MPV 9.4, Immature Gran % (Auto) 1.400 H, Neut % (Auto) 85.5 H, Lymph % (Auto) 5.3 L, [place] % (Auto) 7.7, Eos % (Auto) 0.0, Baso % (Auto) 0.1, Absolute Neuts (auto) 6.3, Absolute Lymphs (auto) 0.39 L, Nucleated RBC % 0, Sodium 136, Potassium 4.9, Chloride 107, Carbon Dioxide 17.2 L, Anion Gap 12, BUN 38 H, Creatinine 1.79 H, Estim Creat Clear Calc 40.12 L, Est GFR (MDRD) Non-Af 39 L, BUN/Creatinine Ratio 20.9 H, Glucose 119 H, Calcium 8.1,Phosphorus 2.5 L, Total Bilirubin 0.69, AST 130 H, ALT 44, Alkaline Phosphatase 49, Total Creatine K inase 2794 H, Total Protein 5.8 L, Albumin 3.3 L, Globulin 2.6, Albumin/Globulin Ratio 1.3, Triglycerides 122, Cholesterol 104, LDL Cholesterol, Calc 38, VLDL Cholesterol 24, HDL Cholesterol 42, Cholesterol/HDL Ratio 2.51 11/05/24 05:09: POC Glucose 121 H Radiography Diagnostic Testing: Radiology Impression Brain CT 11/04/24 17:07 IMPRESSION: No acute intracranial findings. Age-appropriate senescent change. Mild inflammatory changes in the ethmoid and left sphenoid sinus. Reading Location: [employer] Cervical Spine CT 11/04/24 17:07 IMPRESSION: Status post dorsal fusion with instrumentation, C3 through C7. No acute fractures. Multilevel degenerative disc disease. Multilevel foraminal narrowing and facet arthropathy. Reading Location: [facility] Chest/Abdomen/Pelvis CT 11/04/24 17:07 IMPRESSION: 1. Parenchymal scarring in the lung bases. 2. Severe coronary artery calcifications. 3. Suspicion of cholelithiasis. 4. Left obstructive uropathy with moderate hydroureteronephrosis. Associated left perirenal fat stranding. 5. Bilateral nonobstructive nephrolithiasis. 6. Chronic prostatitis. 7. Right hydrocele. 8. Diverticulosis. 9. Bilateral fat containing inguinal hernias. 10. Other nonacute findings detailed above. Reading Location: [facility] Hip/Pelvis X-Ray 11/04/24 18:00 IMPRESSION: Severe osteoarthritis involving the right hip. Reading Location: [facility] Chest CTA 11/04/24 22:40 IMPRESSION: No evidence of pulmonary embolism. Large right renal cyst. Stable chronic changes in the bilateral lungs. Reading Location: [facility] Physical Exam Narrative Seen and examined Patient admitted with generalized weakness, recurrent fall. Has poor balance. CK high about 2800 units per liter. Patient has also found to have left distal ureter multiple stones. Recently right ureteric stent was removed after treatment for right kidney stones. Denies burning micturition/dysuria Physical exam General: Alert, Oriented x3, Cooperative HEENT: Atraumatic, PERRLA, EOMI, Normocephalic Oral: No Gingival or Mucosal Lesions/ Ulcerations Neck: Supple, No JVD, Negative Carotid Bruits. C-spine surgical scar Chest wall/Lungs: Air entry diminished in bilateral lung bases. No crepitation/rhonchi Cardiovascular: Regular rate, Regular Rhythm, Normal S1, Normal S2, No M/G/R Abdomen: Bowel Sounds Present, Soft, Non-Distended : No dysuria. Tenderness present over left lower quadrant/renal angle. Extremities: No edema, Capillary Refill Less than 3 Seconds Skin: No rashes, No breakdown Musculoskeletal: Muscle strength 4+/5 at knees and hip joints. No Tenderness to Palpation of Jointsor Extremities Neurological: Cranial nerves II-XII grossly intact, DTR 2+/4. No acute focal neurological deficit. Psych/Mental Status: Flat affect Assessment & Plan Assessment/Plan (1) Rhabdomyolysis: QUALIFIERS: Rhabdomyolysis type: traumatic Encounter type: initial encounter Qualified Code(s): T79.6XXA - Traumatic ischemia of muscle, initial encounter (2) Fall at home: QUALIFIERS: Encounter type: initial encounter Qualified Code(s): W19.XXXA - Unspecified fall, initial encounter; Y92.009 - Unspecified place in unspecified non-institutional (private) residence as the place of occurrence of the external cause (3) Acute cystitis with hematuria: (4) Calculus of left ureter: (5) Pyelonephritis of left kidney: (6) Fever: QUALIFIERS: Fever type: due to other condition Qualified Code(s): R50.81 - Fever presenting with conditions classified elsewhere (7) Chronic prostatitis: (8) BPH (benign prostatic hyperplasia): QUALIFIERS: Lower urinary tract symptom presence: unspecified whether lower urinary tract symptoms present Qualified Code(s): N40.0 - Benign prostatic hyperplasia without lower urinary tract symptoms (9) Generalized weakness: (10) Ambulatory dysfunction: (11) Morbid obesity with BMI of 45.0-49.9, adult: PLAN: Plan 1. Elevated CK of 2,755 U/L present on admission consistent with mild rhabdomyolysis after recent Fall with prolonged down time with CKD stage IIIb - Admit to general medical floor. Aggressive IV fluid resuscitation. Creatinine increased from 1.67-1.79. Baseline around 1.4-1.8. 2. Abnormal UA with suggestion of possible left pyelonephritis left ureteric calculus: UA positive of LE 500, WBC 10?25 cells, RBC 10?25, nitrite negative. CT shows left obstructive uropathy with associated left periureteral fat stranding suggestive of possible pyelonephritis. Bilateral nonobstructive nephrolithiasis. Right hydrocele. Prostatic calcifications. Patient recently had left renal calculus; s/p ECSWL and stent removal by Dr. Pham of urology on October 19, 2024: Patient was spiking temperature 92.3 ?F after ceftriaxone. Initially started on Zosynbut will change to IV Unasyn because Zosyn increased tubular creatinine secretion therefore pseudo increase in creatinine. Previous urine culture in September 2024 was negative but before that was positive for Enterococcus less than 1000 colonies Corrective Therapy Aide consulted for left ureteric stent 3. Generalized Weakness with Ambulatory Dysfunction with acute on chronic Debility and Frequent Falls -folic acid normal. B12 pending. PT and OT ordered 4. Morbid obesity; with BMI of 46.8 this admission adding to the burden of disease outlined from #1- #3 - Weight loss will be recommended. Check TSH. This complicates his case and may hamper recovery. 5. OA; with sciatica, chronic back pain plus history of cervical spine surgery: PT and OT 6. Essential Hypertension; on lisinopril -discontinue lisinopril because of increasing creatinine. 7. Hyperlipidemia; on atorvastatin - Hold statin because of increased CK 8. DM-2; of unknown control on metformin - Hold metformin while admitted. ADA diet. FSBS q. AC/HS plus lowest-intensity SSI. 9. History of MRSA - Noted. 10. Chronic venous stasis dermatitis 11. DVT prophylaxis -SCDs Charges/Coding Visit Charges Inpatient E&M: 16710 Subs Hosp L2 11/05/24 1514 Cosigner Signature (if applicable): CC: ~ Signed [facility]03-31-2025 Consult note [facility] Medical Records Department [address] [place] [address] Anesthesia Postop Eval II 11/05/24 1346 MR#: [id number] Acct: [id number] Name: AARON CHAPA Rep #:[id number] : 1950 74 From: Santos Mahmood MD PCP: Dr. Mitch Mcwilliams MD Status:ADM I N Y Race: C Location: [place] [address] Anesthesia Postop Eval I Sum Postop Eval Completion status Anesthesia document: Postop Eval 1 completed: Yes Anesthesia Postop Eval I Summary Anesthesia Postop Eval I Summary: Anesthesia Postop Eval I: Assessment Summary Airway patent Yes 11/05/24 13:13 PHARMACY DELIVERY DRIVER.CSIR Spontaneous unlabored Yes 11/05/24 13:13 PHARMACY DELIVERY DRIVER.CSIR respirations Mental status nausea No 11/05/24 13:13 PHARMACY DELIVERY DRIVER.CSIR Vomiting No 11/05/24 13:13 PHARMACY DELIVERY DRIVER.CSIR Anesthesia Postop Eval I: Fluid Summary Crystalloid volume administer 800 11/05/24 13:13 PHARMACY DELIVERY DRIVER.CSIR (ml) Colloids volume administered ( ml) Blood Product volume administered (ml) Total IV fluid infused 800 11/05/24 13:13 PHARMACY DELIVERY DRIVER.CSIR Anesthesia Postop Eval I: Summary Notes Anesthesia Complication No 11/05/24 13:13 PHARMACY DELIVERY DRIVER.CSIR Anesthesia Complication Comment: Post-operative progress note Anesthesia: Postop Eval II Evaluation Mental status: Awake Pain Level: 0 nausea: No Vomiting: No 11/05/24 1346 > Date _ Santos Ybarraignjc Signature: Date CC: ~ Signed [facility]03-31-2025 Consult note Author Santos Mahmood [facility] Note Date/Time November 05, 2024 11: 36am [facility] Medical Records Department [address] [place] [address] Pre-Anesthesia Evaluation 11/05/24 1136 MR#: [id number] Acct: [id number] Name: AARON CHAPA Rep #:[id number] : 1950 74 From: Santos Mahmood MD PCP: Dr. Mitch Mcwilliams MD Status:ADM I N Y Race: C Location: [place] [id number] -1 ASA Classification* ASA Classification ASA Classification: 3 Assessment & Plan Anesthesia* Anesthesia Assessment Anesthesia Assessment: Discussed sedation and/or anesthesia options, risks, benefits, and alternatives with patient/parents/legal guardian/POA. Questions invited. The patient/parents/legal guardian/POA seems to understand and agrees to proceedwith anesthesia plan. Reviewed the physical assessment, medical history, allergy history and patient home medications list prior to surgery/procedure/anesthetic and documented any changes. Performed airway and anesthesia risk assessments. Anesthesia Type Anesthesia Type: General Anesthesia Focused Assessment* Temperature: 98.9 F Pulse Rate: 81 Blood Pressure: 128/60 Respiratory Rate: 16 Pulse Ox: 97 Oxygen Flow Rate (L/min): 0 Airway Assessment Mouth opens: >3 cm Mallampati Score: II Focused Labs Anesthesia Preop lab: CBC WBC 7.3 K/mm3 (4.4-11.0) 11/05/24 04:16 11/05/24 RBC 3.39 M/mm3 (4.6-6.2) L 11/05/24 04:16 11/05/24 Hgb 10.8 g/dL (13.0-16.5) L 11/05/24 04:16 5 Hct 33.4 % (40-54) L 11/05/24 04:16 11/05/24 Plt Count 193 K/mm3 (150-450) 11/05/24 04:16 11/05/24 CHEMISTRY Potassium 4.9 mmol/L (3.3-5.1) 11/05/24 04:16 11/05/24 Sodium 136 mmol/L (133-145) 11/05/24 04:16 11/05/24 Magnesium 1.5 mg/dL (1.5-2.2) 11/04/24 17:20 11/04/24 Phosphorus 2.5 mg/dL (2.7-4.5) L 11/05/24 04:16 11/05/24 BUN 38 mg/dL (4-19) H 11/05/24 04:16 11/05/24 Creatinine 1.79 mg/dL (0.70-1.20) H 11/05/24 04:16 Glucose 119 mg/dL (70-99) H 11/05/24 04:16 11/05/24 POC Glucose 121 mg/dL (74-106) H 11/05/24 05:09 11/05/24 TSH 0.420 uIU/mL (0.300-4.200) 11/04/24 17:20 / COAG Pre-Assessment Diagnosis/Proposed Procedure Planned Operative Procedure(s): Cystoscopy, laser, stent. 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 When Was Last Pacemaker Check QUESTION #4 FULL TEXT: You/Your Family Experience fever (hyperthermia) with Anesthesia Last Oral Intake Last Oral intake: Last Oral Intake NPO since 00:00 11/05/24 10:44 Meds taken in AM with sips of No 11/05/24 10:44 water? Meds patient instructed to take am of surgery PONV PONV - park maintainer: PONV - park maintainer Female HX of Motion Sickness HX of N/V After Surgery Non-Smoker Duration of Surgery greater than 60 minutes Number of Risk Factors PONV Score Height & Weight Height & Weight: Anesthesia: Height & Weight Height 5 ft 9 in 11/05/24 10:44 Weight: 95.708 kg 11/05/24 10:44 Body Mass Index (BMI) 31.1 11/05/24 10:44 Respiratory Assessment Respiratory Assessment - park maintainer: Respiratory Tract Infection Hx - park maintainer Hx Respiratory Tract Infection No 11/05/24 05:25 STOP Sleep Apnea STOP Sleep Apnea - park maintainer: STOP Sleep Apnea - park maintainer Hx Hypertension Yes 11/05/24 09:32 Hx Sleep Apnea No 11/04/24 21:22 CPAP No 10/19/24 14:31 BIPAP No 12/01/21 14:58 Do you snore loudly (louder Yes 11/04/24 21:22 than talking or can be heard Do you often feel tired/ No 11/04/24 21:22 fatigued/ sleepy during daytime? Has anyone observed you stop No 11/04/24 21:22 breathing during sleep? STOP Results Positive 11/04/24 21:22 QUESTION #5 FULL TEXT : Do you snore loudly (louder than talking or can be heard through closed doors)? Tobacco Use History Tobacco Use History - park maintainer: Tobacco Use History - park maintainer Tobacco Use Smoking Status Never smoker 11/04/24 21:22 Hx Tobacco Use No 11/04/24 21:22 Years Smoking Packs Smoked per Day Smoking Cessation Date was within the last 15 years Hx Smoking Cessation Date Hx Smoking Cessation Counseling Hematologic Medial History Hematologic Hx - park maintainer: Hematologic Medical Hx - deck cadet Hx of Blood Transfusion No 11/04/24 21:22 Hx of Transfusion in last 3 No 11/04/24 21:22 Months Date of Last Transfusion (if within last 3 months) Ever experience any problems No 11/04/24 21:22 with transfusion(s)? Specify any problems Hx of Preganancy in last 3 N/A 11/04/24 21:22 Months Nurse Filling Out Transfusion DREDICK 11/04/24 21:22 & Questions: Date: 11/04/24 11/04/24 21:22 Time: 21:23 11/04/24 21:22 Patient unable to answer at this time (ie. confused, unrespo /Reproduction History /Reproductive History - park maintainer: /Reproductive Hx- park maintainer Hx Now No 11/05/24 05:25 Gestational Age (in weeks): EDC: Hx Hx Para Hx Section SAB No 10/11/24 08:31 Active Medications Active Medications: Current Medications Generic Name Dose Route Start Last Admin Trade Name Freq PRN Reason Stop Dose Admin Acetaminophen 650 mg 11/04/24 21:30 11/05/24 05:21 Acetaminophen 325 Mg Tablet PO 650 mg Q6H PRN PRN Administration Pain 1-5/10 or Fever Al Hydroxide/Mg Hydroxide 30 ml 11/04/24 21:30 Mag Hydrox/Al Hydrox/Simeth 30 Ml Udc PO Q6H PRN PRN Gastric Burning Ascorbic Acid 1,000 mg 11/05/24 08:00 11/05/24 08:48 Ascorbic Acid 500 Mg Tablet PO Not Given BIDCM THAD Cholecalciferol 125 mcg 11/04/24 21:30 11/05/24 08:48 Cholecalciferol (Vit D3) 125 Mcg Capsule (5,000 Units) PO Not Given DAILY THAD Gabapentin 100 mg 11/05/24 08:00 11/05/24 08:48 Gabapentin 100 Mg Capsule PO Not Given TIDCM THAD Glucagon 1 mg 11/04/24 21:30 Glucagon 1 Mg/Ml Syringe IM X1 PRN HYPOGLYCEMIA Protocol Sodium Chloride 1,000 mls @ 125 mls/hr 11/04/24 21:00 11/05/24 05:16 IV 11/05/24 12:59 125 mls/hr .Q8H THAD Administration Dextrose 250 mls @ 0 mls/hr 11/04/24 21:30 Dextrose 10%-Water IV .Q0M PRN HYPOGLYCEMIA Protocol As Directed Piperacillin Sod/Tazobactam 50 mls @ 12.5 mls/hr 11/04/24 22:00 11/05/24 09:15 Sod 3.375 gm/ Sodium Chloride IV Infused Q8 THAD Infusion Sodium Chloride 100 mls @ 15 mls/hr 11/04/24 21:17 IV .Q6H40M PRN Saline Flush Sodium Chloride 100 mls @ 15 mls/hr 11/04/24 21:17 IV .Q6H40M PRN Additional IVPB Infusion Insulin Human Lispro 0 unit 11/05/24 00:00 11/05/24 05:15 Insulin Lispro 100 Unit/Ml Insuln.Pen SC Not Given Q6 THAD Protocol Lisinopril 5 mg 11/05/24 10:00 11/05/24 08:48 Lisinopril 5 Mg Tablet PO Not Given DAILY THAD Protocol Magnesium Hydroxide 30 ml 11/04/24 21:30 Magnesium Hydroxide 30 Ml Udc PO DAILY PRN PRN Constipation Melatonin 3 mg 11/04/24 22:00 Melatonin 3 Mg Tablet PO QHS PRN PRN INSOMNIA Morphine Sulfate 2 mg 11/04/24 21:30 11/04/24 21:34 Morphine 2 Mg/Ml Syringe IV 2 mg Q4H PRN PRN Administration Pain Score 6-10 Ondansetron HCl 4 mg 11/04/24 21:30 Ondansetron 4 Mg/2 Ml Vial IV Q8H PRN PRN NAUSEA/VOMITING Sodium Chloride 10 - 40 ml 11/04/24 21:17 0.9% Saline Lock 10 Ml Syringe IV UD PRN SALINE FLUSH Tamsulosin HCl 0.4 mg 11/05/24 17:30 Tamsulosin Hcl 0.4 Mg Capsule PO DAILY@1730 [facility] Zinc Sulfate 50 mg 11/04/24 21:30 11/05/24 08:48 Zinc Sulfate 50 Mg Zinc (220 Mg) Oral Capsule PO Not Given DAILY [facility] PFSH Medical History Loss of hearing Walker as ambulation aid High cholesterol History of stress test Wears glasses History of MRSA infection Non-smoker Physical debility Debility Closed head injury Frequent falls Sciatica Kidney stones Decreased hearing Hyperlipemia Hypertension Chronic back pain Arthritis Type 2 diabetes mellitus Home Medications ?Medication ?Instructions ?Recorded ?Last Taken ?Type atorvastatin 40 mg tablet 40 mg PO QHS CHOLESTEROL 09/2610/18/24 History lisinopril 5 mg tablet 5 mg PO DAILY blood pressure 04/25/19 10/18/24 History metformin 500 mg tablet 500 mg PO BID diabetes 02/0210/18/24 History acetaminophen 500 mg tablet 1,000 mg (2 x 500 mg) PO Q 6H PRN 12/03/21 10/18/24 Rx PRN Pain Score 1-3 #0 tabs gabapentin 100 mg capsule 100 mg PO TIDCM pain 30 days #90 12/03/21 10/18/24 Rx caps tamsulosin 0.4 mg capsule 0.4 mg PO DAILY@1730 bph 14 days 09/25/24 10/18/24 Rx #14 caps Allergy/AdvReac Type Severity Reaction Status Date / Time oxycodone HCl (From Percocet) Allergy Intermediate Other Verified 10/19/24 11:59 Family History Father Mental disorder Heart disease Mother Heart disease High cholesterol Surgical History History of kidney stones History of cervical spinal surgery Social History household members: none Smoking Status: Never smoker alcohol intake: never substance use type: does not use what type of physical activity do you participate in: walking frequency: daily Review of Systems (Anesthesia) ROS Narrative System reviewed and no additional complaints, except as documented. 11/05/24 1136 <Electronically signed by Santos Mahmood MD > Date _ Santos Mahmood MD Cosigner Signature: Date CC: ~ Signed [facility] Work Phone: [phone] 370-459303-31-2025 Consult note [facility] Medical Records Department [address] [place] [address] Anesthesia Postop Eval I 11/05/24 1313 MR#: [id number] Acct: [id number] Name: AARON CHAPA Rep #:[id number] : 1950 74 From: Leni Fraga PCP: Dr. Mitch Mcwilliams MD Status:ADM I N Y Race: C Location: [place] [address] Anesthesia: Postop Eval I Current Vital Signs Temperature: 97.8 F Pulse Rate: 91 Blood Pressure: 139/76 Respiratory Rate: 18 Pulse Ox: 94 Assessment Airway patent: Yes Spontaneous unlabored respirations: Yes nausea: No Vomiting: No Anesthesia Complication: No Fluid Hydration Crystalloid volume administer (ml): 800 Total IV fluid infused: 800 Progress Note Anesthesia document: Postop Eval 1 completed: Yes 11/05/24 1314 a> Date _ Leni Spencer Signature: Date CC: ~ Signed [facility]03-31-2025 Procedure note [facility] Medical Records Department [address] [place] [address] Operative Report 11/05/24 1302 MR#: [id number] Acct: [id number] Name: AARON CHAPA Rep #:[id number] : 1950 74 From: Jose Manuel Pham MD PCP: Dr. Mitch Mcwilliams MD Status:ADM I N Location: [place] [address] Operative Report (Standard) Operative Information Date of Procedure: 11/05/24 Pre-Operative Diagnosis: Stones in left ureter Post-Operative Diagnosis: Same Surgery/Procedure Performed: Cystoscopy, ureteroscopy laser lithotripsy of stonefragments in the left ureter and no stent cook helper dessert: No Type of Anesthesia: General RN Documented Start/Stop Times: Operation Date: 11/05/24 12:00 Case Time Into Pre-Op 11/05/24 11:16 Procedure Start Time: 12:20 Procedure Stop Time: 13:02 Select all DRAINS/GRAFTS/IMPLANTS that apply: None Estimated Blood Loss: None Specimen collected: Yes Description of specimen(s) removed: B Stone for analysis Description of surgery: Patient is taken back to the operating room at this with duction of anesthesia he was placed in dorsolithotomy position. The urethal prostate testicles were prepped and draped in usual sterile fashion 1 in the bladder with a 21 Telugu rigid cystourethroscope upon entering the bladder I saw large stone poking out of the left ureteral orifice I then used a 365 ?m laser fiber started lasering the stone I then went back into the ureter with a semirigid ureteroscope and lasered both stones up the ureter I then switched over to a flexible ureteroscope and lasered most stone more stones along the course of the ureter Iwas then finally able to get all the way up to the renal pelvis no other stones were seen along the course of the ureter worked my way down the ureter and lasered all the stones along the course of the ureter and then came out the ureter looked at all the major stones to be lasered out some few fragments that are passing around. No stent was placed patient's bladder was drainedhe was taken back to the PACU in good condition he can follow-up in my office for checkup in a few weeks. Surgical Findings: stone in ureter lasered out Complications Complications: No Admit VTE Documentation VTE Present on Admission: No VTE Mechan Device Prophylaxis: SCD's VTE Pharm Prophylaxis ordered?: No 11/05/24 1304 Cosigner Signature (if applicable): CC: Dr. Joel Baldwin DO; Dr. Jose Manuel Pham MD; Dr. Mitch Mcwilliams MD~ Signed [facility]03-31-2025 Consult note [facility] Medical Records Department [address] [place] [address] Pre-Anesthesia Evaluation 11/05/24 1136 MR#: [id number] Acct: [id number] Name: AARON CHAPA Rep #:[id number] : 1950 74 From: Santos Mahmood MD PCP: Dr. Mitch Mcwilliams MD Status:ADM I N Y Race: C Location: [place] [address] ASA Classification* ASA Classification ASA Classification: 3 Assessment & Plan Anesthesia* Anesthesia Assessment Anesthesia Assessment: Discussed sedation and/or anesthesia options, risks, benefits, and alternatives with patient/parents/legal guardian/POA. Questions invited. The patient/parents/legal guardian/POA seems to understand and agrees to proceedwith anesthesia plan. Reviewed the physical assessment, medical history, allergy history and patient home medications list prior to surgery/procedure/anesthetic and documented any changes. Performed airway and anesthesia risk assessments. Anesthesia Type Anesthesia Type: General Anesthesia Focused Assessment* Temperature: 98.9 F Pulse Rate: 81 Blood Pressure: 128/60 Respiratory Rate: 16 Pulse Ox: 97 Oxygen Flow Rate (L/min): 0 Airway Assessment Mouth opens: >3 cm Mallampati Score: II Focused Labs Anesthesia Preop lab: CBC WBC 7.3 K/mm3 (4.4-11.0) 11/05/24 04:16 11/05/24 RBC 3.39 M/mm3 (4.6-6.2) L 11/05/24 04:16 11/05/24 Hgb 10.8 g/dL (13.0-16.5) L 11/05/24 04:16 5 Hct 33.4 % (40-54) L 11/05/24 04:16 11/05/24 Plt Count 193 K/mm3 (150-450) 11/05/24 04:16 11/05/24 CHEMISTRY Potassium 4.9 mmol/L (3.3-5.1) 11/05/24 04:16 11/05/24 Sodium 136 mmol/L (133-145) 11/05/24 04:16 11/05/24 Magnesium 1.5 mg/dL (1.5-2.2) 11/04/24 17:20 11/04/24 Phosphorus 2.5 mg/dL (2.7-4.5) L 11/05/24 04:16 11/05/24 BUN 38 mg/dL (4-19) H 11/05/24 04:16 11/05/24 Creatinine 1.79 mg/dL (0.70-1.20) H 11/05/24 04:16 Glucose 119 mg/dL (70-99) H 11/05/24 04:16 11/05/24 POC Glucose 121 mg/dL (74-106) H 11/05/24 05:09 11/05/24 TSH 0.420 uIU/mL (0.300-4.200) 11/04/24 17:20 10/08 COAG Pre-Assessment Diagnosis/Proposed Procedure Planned Operative Procedure(s): Cystoscopy, laser, stent. 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 When Was Last Pacemaker Check QUESTION #4 FULL TEXT: You/Your Family Experience fever (hyperthermia) with Anesthesia Last Oral Intake Last Oral intake: Last Oral Intake NPO since 00:00 11/05/24 10:44 Meds taken in AM with sips of No 11/05/24 10:44 water? Meds patient instructed to take am of surgery PONV PONV - park maintainer: PONV - park maintainer Female HX of Motion Sickness HX of N/V After Surgery Non-Smoker Duration of Surgery greater than 60 minutes Number of Risk Factors PONV Score Height & Weight Height & Weight: Anesthesia: Height & Weight Height 5 ft 9 in 11/05/24 10:44 Weight: 95.708 kg 11/05/24 10:44 Body Mass Index (BMI) 31.1 11/05/24 10:44 Respiratory Assessment Respiratory Assessment - park maintainer: Respiratory Tract Infection Hx - park maintainer Hx Respiratory Tract Infection No 11/05/24 05:25 STOP Sleep Apnea STOP Sleep Apnea - park maintainer: STOP Sleep Apnea - park maintainer Hx Hypertension Yes 11/05/24 09:32 Hx Sleep Apnea No 11/04/24 21:22 CPAP No 10/19/24 14:31 BIPAP No 12/01/21 14:58 Do you snore loudly (louder Yes 11/04/24 21:22 than talking or can be heard Do you often feel tired/ No 11/04/24 21:22 fatigued/ sleepy during daytime? Has anyone observed you stop No 11/04/24 21:22 breathing during sleep? STOP Results Positive 11/04/24 21:22 QUESTION #5 FULL TEXT : Do you snore loudly (louder than talking or can be heard through closeddoors)? Tobacco Use History Tobacco Use History - park maintainer: Tobacco Use History - park maintainer Tobacco Use Smoking Status Never smoker 11/04/24 21:22 Hx Tobacco Use No 11/04/24 21:22 Years Smoking Packs Smoked per Day Smoking Cessation Date was within the last 15 years Hx Smoking Cessation Date Hx Smoking Cessation Counseling Hematologic Medial History Hematologic Hx - park maintainer: Hematologic Medical Hx - deck cadet Hx of Blood Transfusion No 11/04/24 21:22 Hx of Transfusion in last 3 No 11/04/24 21:22 Months Date of Last Transfusion (if within last 3 months) Ever experience any problems No 11/04/24 21:22 with transfusion(s)? Specify any problems Hx of Preganancy in last 3 N/A 11/04/24 21:22 Months Nurse Filling Out Transfusion ABDIRAHMAN 11/04/24 21:22 & Questions: Date: 11/04/24 11/04/24 21:22 Time: 21:23 11/04/24 21:22 Patient unable to answer at this time (ie. confused, unrespo /Reproduction History /Reproductive History - park maintainer: /Reproductive Hx- park maintainer Hx Now No 11/05/24 05:25 Gestational Age (in weeks): EDC: Hx Hx Para Hx Section SAB No 10/11/24 08:31 Active Medications Active Medications: Current Medications Generic Name Dose Route Start Last Admin Trade Name Freq PRN Reason Stop Dose Admin Acetaminophen 650 mg 11/04/24 21:30 11/05/24 05:21 Acetaminophen 325 Mg Tablet PO 650 mg Q6H PRN PRN Administration Pain 1-5/10 or Fever Al Hydroxide/Mg Hydroxide 30 ml 11/04/24 21:30 Mag Hydrox/Al Hydrox/Simeth 30 Ml Udc PO Q6H PRN PRN Gastric Burning Ascorbic Acid 1,000 mg 11/05/24 08:00 11/05/24 08:48 Ascorbic Acid 500 Mg Tablet PO Not Given BIDCM THAD Cholecalciferol 125 mcg 11/04/24 21:30 11/05/24 08:48 Cholecalciferol (Vit D3) 125 Mcg Capsule (5,000 Units) PO Not Given DAILY THAD Gabapentin 100 mg 11/05/24 08:00 11/05/24 08:48 Gabapentin 100 Mg Capsule PO Not Given TIDCM THAD Glucagon 1 mg 11/04/24 21:30 Glucagon 1 Mg/Ml Syringe IM X1 PRN HYPOGLYCEMIA Protocol Sodium Chloride 1,000 mls @ 125 mls/hr 11/04/24 21:00 11/05/24 05:16 IV 11/05/24 12:59 125 mls/hr .Q8H THAD Administration Dextrose 250 mls @ 0 mls/hr 11/04/24 21:30 Dextrose 10%-Water IV .Q0M PRN HYPOGLYCEMIA Protocol As Directed Piperacillin Sod/Tazobactam 50 mls @ 12.5 mls/hr 11/04/24 22:00 11/05/24 09:15 Sod 3.375 gm/ Sodium Chloride IV Infused Q8 THAD Infusion Sodium Chloride 100 mls @ 15 mls/hr 11/04/24 21:17 IV .Q6H40M PRN Saline Flush Sodium Chloride 100 mls @ 15 mls/hr 11/04/24 21:17 IV .Q6H40M PRN Additional IVPB Infusion Insulin Human Lispro 0 unit 11/05/24 00:00 11/05/24 05:15 Insulin Lispro 100 Unit/Ml Insuln.Pen SC Not Given Q6 [facility] Protocol Lisinopril 5 mg 11/05/24 10:00 11/05/24 08:48 Lisinopril 5 Mg Tablet PO Not Given DAILY [facility] Protocol Magnesium Hydroxide 30 ml 11/04/24 21:30 Magnesium Hydroxide 30 Ml Udc PO DAILY PRN PRN Constipation Melatonin 3 mg 11/04/24 22:00 Melatonin 3 Mg Tablet PO QHS PRN PRN INSOMNIA Morphine Sulfate 2 mg 11/04/24 21:30 11/04/24 21:34 Morphine 2 Mg/Ml Syringe IV 2 mg Q4H PRN PRN Administration Pain Score 6-10 Ondansetron HCl 4 mg 11/04/24 21:30 Ondansetron 4 Mg/2 Ml Vial IV Q8H PRN PRN NAUSEA/VOMITING Sodium Chloride 10 - 40 ml 11/04/24 21:17 0.9% Saline Lock 10 Ml Syringe IV UD PRN SALINE FLUSH Tamsulosin HCl 0.4 mg 11/05/24 17:30 Tamsulosin Hcl 0.4 Mg Capsule PO DAILY@1730 [facility] Zinc Sulfate 50 mg 11/04/24 21:30 11/05/24 08:48 Zinc Sulfate 50 Mg Zinc (220 Mg) Oral Capsule PO Not Given DAILY [facility] Medical History Loss of hearing Walker as ambulation aid High cholesterol History of stress test Wears glasses History of MRSA infection Non-smoker Physical debility Debility Closed head injury Frequent falls Sciatica Kidney stones Decreased hearing Hyperlipemia Hypertension Chronic back pain Arthritis Type 2 diabetes mellitus Home Medications ?Medication ?Instructions ?Recorded ?Last Taken ?Type atorvastatin 40 mg tablet 40 mg PO QHS CHOLESTEROL 09/2610/18/24 History lisinopril 5 mg tablet 5 mg PO DAILY blood pressure 04/25/19 10/18/24 History metformin 500 mg tablet 500 mg PO BID diabetes 02/0210/18/24 History acetaminophen 500 mg tablet 1,000 mg (2 x 500 mg) PO Q 6H PRN 12/03/21 10/18/24 Rx PRN Pain Score 1-3 #0 tabs gabapentin 100 mg capsule 100 mg PO TIDCM pain 30 days #90 12/03/21 10/18/24 Rx caps tamsulosin 0.4 mg capsule 0.4 mg PO DAILY@1730 bph 14 days 09/25/24 10/18/24 Rx #14 caps Allergy/AdvReac Type Severity Reaction Status Date / Time oxycodone HCl (From Percocet) Allergy Intermediate Other Verified 10/19/24 11:59 Family History Father Mental disorder Heart disease Mother Heart disease High cholesterol Surgical History History of kidney stones History of cervical spinal surgery Social History household members: none Smoking Status: Never smoker alcohol intake: never substance use type: does not use what type of physical activity do you participate in: walking frequency: daily Review of Systems (Anesthesia) ROS Narrative System reviewed and no additional complaints, except as documented. 11/05/24 1136 > Date _ Santos Mahmood MD Cosigner Signature: Date CC: ~ Signed [facility]03-31-2025 Consult note Author Jose Manuel Pham [facility] Note Date/Time November 05, 2024 7:2 3am [facility] Medical Records Department [address] [place] [address] Consultation - Urology 11/05/24 0722 MR#: [id number] Acct: [id number] Name: AARON CHAPA Rep #:[id number] : 1950 74 From: Jose Manuel Pham MD PCP: Dr. Mitch Mcwilliams MD Status:ADM I N Location: [place] [id number] Assessment & Plan Assessment/Plan (1) Calculus of left ureter: PLAN: plan to laser the stone is the day with laser lithotripsy npo HPI Consult Data Date of Consult: 11/05/24 HPI Narrative Reason for Consultation: left kidney stones HPI Narrative: AARON CHAPA, is a 74 M who presents to the hospital with a fall recently weakness CT scan was done demonstrated multiple stones in the distal left ureterthat are causing obstruction he had treatment with shockwave lithotripsy. Keep NPO plan to taken the surgery today and laser the remaining stone fragments the kidneys out. Possible he may need aa stent. [facility] Medical History Loss of hearing Walker as ambulation aid High cholesterol History of stress test Wears glasses History of MRSA infection Non-smoker Physical debility Debility Closed head injury Frequent falls Sciatica Kidney stones Decreased hearing Hyperlipemia Hypertension Chronic back pain Arthritis Type 2 diabetes mellitus Home Medications ?Medication ?Instructions ?Recorded ?Last Taken ?Type atorvastatin 40 mg tablet 40 mg PO QHS CHOLESTEROL 09/2610/18/24 History lisinopril 5 mg tablet 5 mg PO DAILY blood pressure 04/25/19 10/18/24 History metformin 500 mg tablet 500 mg PO BID diabetes 02/0210/18/24 History acetaminophen 500 mg tablet 1,000 mg (2 x 500 mg) PO Q 6H PRN 12/03/21 10/18/24 Rx PRN Pain Score 1-3 #0 tabs gabapentin 100 mg capsule 100 mg PO TIDCM pain 30 days #90 12/03/21 10/18/24 Rx caps tamsulosin 0.4 mg capsule 0.4 mg PO DAILY@1730 bph 14 days 09/25/24 10/18/24 Rx #14 caps Allergy/AdvReac Type Severity Reaction Status Date / Time oxycodone HCl (From Percocet) Allergy Intermediate Other Verified 10/19/24 11:59 Family History Father Mental disorder Heart disease Mother Heart disease High cholesterol Surgical History History of kidney stones History of cervical spinal surgery Social History household members: none Smoking Status: Never smoker alcohol intake: never substance use type: does not use what type of physical activity do you participate in: walking frequency: daily Lab / Micro Data 11/05/24 04:16 11/05/24 04:16 Labs: Laboratory Results - last 24 hr 11/04/24 17:20: WBC 11.0, RBC 3.46 L, Hgb 11.3 L, Hct 33.5 L, MCV 96.8 H, MCH 32.7 H, MCHC 33.7, RDW Std Deviation 44.0 H, RDW Coeff of Javid 12.7, Plt Count 221, MPV 9.5, Immature Gran % (Auto) 0.700, Neut % (Auto) 89.7 H, Lymph % (Auto)3.6 L, [place] % (Auto) 5.9, Eos % (Auto) 0.0, Baso % (Auto) 0.1, Absolute Neuts (auto) 9.8 H, Absolute Lymphs (auto) 0.40 L, Nucleated RBC % 0, Sodium 136, Potassium 4.3, Chloride 105, Carbon Dioxide 18.3 L, Anion Gap 13, BUN 35 H, Creatinine 1.67 H, Estim Creat Clear Calc 36.85 L, Est GFR (MDRD) Non-Af 42 L, BUN/Creatinine Ratio 20.9 H, Glucose 115 H, Hemoglobin A1c 6.6, Calcium 8.7, Magnesium 1.5, Total Bilirubin 0.98, AST 109 H, ALT 35, Alkaline Phosphatase 54,Total Creatine Kinase 2755 H, Total Protein 6.5, Albumin 3.6, Globulin 2.8, Albumin/Globulin Ratio 1.3, Lipase 14, Vitamin B12 483, TSH 0.420 11/04/24 18:50: Urine Color Yellow, Urine Clarity Sl. Cloudy, Urine pH 5.0, Ur Specific [place] 1.015, Urine Protein 100 H, Urine Glucose (UA) Normal, Urine Ketones Negative, Urine Occult Blood 250 H, Urine Nitrite Negative, Urine Bilirubin Negative, Urine Urobilinogen Normal, Ur Leukocyte Esterase 500 H, Urine RBC 10-25 SEEN, Urine WBC 10-25 SEEN, Ur Squamous Epith Cells 0 SEEN, Urine Bacteria 3+, Fine Granular Casts 0-5 SEEN, Urine Mucus 0 SEEN 11/04/24 20:58: Lactic Acid 1.0 11/04/24 21:56: POC Glucose 110 H 11/04/24 22:06: D-Dimer Quant (PE/DVT) 3.60 H*, Serum Folate 6.89 11/05/24 04:16: WBC 7.3, RBC 3.39 L, Hgb 10.8 L, Hct 33.4 L, MCV 98.5 H, MCH 31.9, MCHC 32.3, RDW Std Deviation 46.2 H, RDW Coeff of Javid 13.0, Plt Count 193,MPV 9.4, Immature Gran % (Auto) 1.400 H, Neut % (Auto) 85.5 H, Lymph % (Auto) 5.3 L, [place] % (Auto) 7.7, Eos % (Auto) 0.0, Baso % (Auto) 0.1, Absolute Neuts (auto) 6.3, Absolute Lymphs (auto) 0.39 L, Nucleated RBC % 0, Sodium 136, Potassium 4.9, Chloride 107, Carbon Dioxide 17.2 L, Anion Gap 12, BUN 38 H, Creatinine 1.79 H, Estim Creat Clear Calc 40.12 L, Est GFR (MDRD) Non-Af 39 L, BUN/Creatinine Ratio 20.9 H, Glucose 119 H, Calcium 8.1, Phosphorus 2.5 L, Total Bilirubin 0.69, AST 130 H, ALT 44, Alkaline Phosphatase 49, Total Creatine Kinase 2794 H, Total Protein 5.8 L, Albumin 3.3 L, Globulin 2.6, Albumin/Globulin Ratio 1.3, Triglycerides 122, Cholesterol 104, LDL Cholesterol,Calc 38, VLDL Cholesterol 24, HDL Cholesterol 42, Cholesterol/HDL Ratio 2.51 11/05/24 05:09: POC Glucose 121 H Imaging Radiology Impression Brain CT 11/04/24 17:07 IMPRESSION: No acute intracranial findings. Age-appropriate senescent change. Mild inflammatory changes in the ethmoid and left sphenoid sinus. Reading Location: [employer] [facility] Cervical Spine CT 11/04/24 17:07 IMPRESSION: Status post dorsal fusion with instrumentation, C3 through C7. No acute fractures. Multilevel degenerative disc disease. Multilevel foraminal narrowing and facet arthropathy. Reading Location: [employer] Chest/Abdomen/Pelvis CT 11/04/24 17:07 IMPRESSION: 1. Parenchymal scarring in the lung bases. 2. Severe coronary artery calcifications. 3. Suspicion of cholelithiasis. 4. Left obstructive uropathy with moderate hydroureteronephrosis. Associated left perirenal fat stranding. 5. Bilateral nonobstructive nephrolithiasis. 6. Chronic prostatitis. 7. Right hydrocele. 8. Diverticulosis. 9. Bilateral fat containing inguinal hernias. 10. Other nonacute findings detailed above. Reading Location: [employer] [facility] Hip/Pelvis X-Ray 11/04/24 18:00 IMPRESSION: Severe osteoarthritis involving the right hip. Reading Location: [employer] Chest CTA 11/04/24 22:40 IMPRESSION: No evidence of pulmonary embolism. Large right renal cyst. Stable chronic changes in the bilateral lungs. Reading Location: [facility] 11/05/24 0723 <Electronically signed by Jose Manuel Pham MD> Cosigner Signature (if applicable): CC: Dr. Mitch Mcwilliams MD~ Signed [facility] Work Phone: [phone] History and physical note Author Joel Lay [facility] Note Date/Time November 05, 2024 6:4 2am [facility] Medical Records Department [address] [place] [id number] H&P Exam - Hospitalist 11/04/241999 MR#: [id number] Acct: [id number] Name: AARON CHAPA Rep #:[id number] : 1950 74 From: Joel Grossman DO PCP: Dr. Mitch Mcwilliams MD Status:ADM I N Location: [facility] [id number] [facility] General Date of Admission: 11/04/24 Date of Service: 11/04/24 Chief Complaint: Fall and Left Flank Pain. HPI Narrative AARON CHAPA, is a 74 M with a past medical history of essential hypertension; on lisinopril, hyperlipidemia; on atorvastatin, morbid obesity; with BMI of 46.8this admission, DM-2; of unknown control on metformin, BPH; on tamsulosin, history of MRSA, chronic debility; with frequent falls and closed head injury (2011), chronic venous stasis dermatitis, OA; with sciatica, chronic back pain plus history of cervical spine surgery and recently diagnosed Left renal calculus; s/p ECSWL and stent removal by Dr. Pham of urology on October 19, 2024who presents to [facility] ER complaining of fall and Left flankpain. Mr. Chapa reports his symptoms began last night when he fell while trying to get out of his recliner and then could not get back up. He stayed on the floor until ~3:00 PM today when his daughter came to check on him because she could not get him on the phone and found him on the floor. He is not sure if he had significant head trauma or LOC. He was noted to be A&Ox4 in the ER but his daughter claimed he still seemed confused. He also admits to Left-sidedflank pain that is radiating into his abdomen with intermittent nausea that is very similar to his previous kidney stone, in addition to Right-sided abdominal pain and hip pain. He denies associated fevers, chills, chest pain, SOB, heart racing, palpitations, paresthesias, headache or rash. In the ER he was noted to have and elevated CK of 2,755 U/L present on admissionconsistent with Rhabdomyolysis complicated by UA positive for Acute Cystitis; with microscopic hematuria compounded by CT evidence of Left obstructive uropathy with moderate hydronephrosis and associated Left perirenal fat stranding (consistent with suspected Left Pyelonephritis) with bilateral nonobstructive nephrolithiasis and Chronic Prostatitis compounded by clinical evidence of Generalized Weakness with Ambulatory Dysfunction after recent Fall in the setting of previously known Chronic Debility and he was then admitted to the general medical floor for ongoing care for a stay that is expected to extendbeyond 2 midnights. [facility] Medical History Loss of hearing Walker as ambulation aid High cholesterol History of stress test Wears glasses History of MRSA infection Non-smoker Physical debility Debility Closed head injury Frequent falls Sciatica Kidney stones Decreased hearing Hyperlipemia Hypertension Chronic back pain Arthritis Type 2 diabetes mellitus Home Medications ?Medication ?Instructions ?Recorded ?Last Taken ?Type atorvastatin 40 mg tablet 40 mg PO QHS CHOLESTEROL 09/2610/18/24 History lisinopril 5 mg tablet 5 mg PO DAILY blood pressure 04/25/19 10/18/24 History metformin 500 mg tablet 500 mg PO BID diabetes 02/0210/18/24 History acetaminophen 500 mg tablet 1,000 mg (2 x 500 mg) PO Q 6H PRN 12/03/21 10/18/24 Rx PRN Pain Score 1-3 #0 tabs gabapentin 100 mg capsule 100 mg PO TIDCM pain 30 days #90 12/03/21 10/18/24 Rx caps tamsulosin 0.4 mg capsule 0.4 mg PO DAILY@1730 bph 14 days 09/25/24 10/18/24 Rx #14 caps Allergy/AdvReac Type Severity Reaction Status Date / Time oxycodone HCl (From Percocet) Allergy Intermediate Other Verified 10/19/24 11:59 Family History Father Mental disorder Heart disease Mother Heart disease High cholesterol Surgical History History of kidney stones History of cervical spinal surgery Social History household members: none Smoking Status: Never smoker alcohol intake: never substance use type: does not use what type of physical activity do you participate in: walking frequency: daily ROS ROS Narrative Review of Systems: Constitutional: Patient denies fever or chills. Eyes: Patient denies changes in vision or discharge from eyes. ENT: Patient denies runny nose, sore throat or ear pain. Resp: Patient denies SOB or cough. CV: Patient denies chest pain, palpitations, heart racing or LE edema. GI: Patient admits to Right sided abdominal pain after fall with nausea but he denies vomiting, diarrhea or constipation. : Patient admits to Left flank pain as per HPI. MSK: Patient admits to generalized weakness with ambulatory dysfunction and frequent falls as per HPI. Skin: Patient denies rash. Psych: Patient denies symptoms of uncontrolled depression or anxiety. Neuro: Patient denies headache, paresthesias or focal neurologic deficits. Allergy: Patient denies lip swelling, tongue swelling or urticaria. Hematology: Patient denies easy bleeding or easy bruisability. Endocrinology: Patient denies polyuria, polydipsia or polyphagia. 14 point ROS otherwise negative except for positives noted above in HPI. Vital Signs Vital Signs Vital Signs: 11/04/24 16:33 11/04/24 16:40 11/04/24 16:47 Temperature 99.7 F H Temperature Source Oral Pulse Rate 91 89 Respiratory Rate 18 16 Respiratory Effort Normal Respiratory Depth Normal Respiratory Pattern Normal Blood Pressure 119/72 Blood Pressure Mean 87 Pulse Ox 95 96 Oxygen Delivery Method Room Air Room Air Room Air Oxygen Flow Rate (L/min) 11/04/24 17:32 11/04/24 18:53 11/04/24 19:00 Temperature Temperature Source Pulse Rate 88 105 H Respiratory Rate 20 H 20 H Respiratory Effort Respiratory Depth Respiratory Pattern Blood Pressure 128/82 H 136/79 H 113/67 Blood Pressure Mean 97 98 82 Pulse Ox 92 96 Oxygen Delivery Method Nasal Cannula Room Air Oxygen Flow Rate (L/min) 2 Weight Weight: 216 lb 4.375 oz Body Mass Index (BMI) 46.7 Physical Exam Const alert, oriented x3 and no apparent distress Constitutional Narrative: Morbid obesity. General Appearance: cooperative HEENT normocephalic, head/scalp atraumatic and hearing grossly normal bilaterally HEENT Narrative: Mucous membranes dry. Eyes PERRL, EOMs intact bilaterally and conjunctivae normal Neck no lymphadenopathy and supple Resp normal respiratory effort, no retractions, no use of accessory muscles and clearto auscultation bilaterally Cardio regular rate and regular rhythm GI normal to inspection, nondistended, normoactive bowel sounds, soft to palpation and non-distended GI Narrative: Left CVA TTP. Extremity Extremity Narrative: Patient has decreased ROM of the Right hip with positive log-roll with normal pulses and no signs of vasular compromise. Skin Skin Narrative: Patient has evidence of chronic venous stasis dermatitis of both lower extremities. Neuro oriented x3, CN's II-XII intact bilaterally, moves all extremities and no focal motor deficits Sensorium / Orientation: awake, alert, oriented to person, oriented to place andoriented to time Speech: speech normal Psych affect normal Results Medical Records Data Attestation: I reviewed the patient's medical records Lab / Micro Data Attestation: I reviewed the patient's lab results. 11/05/24 04:16 11/05/24 04:16 Labs: Laboratory Results - last 24 hr 11/04/24 17:20: WBC 11.0, RBC 3.46 L, Hgb 11.3 L, Hct 33.5 L, MCV 96.8 H, MCH 32.7 H, MCHC 33.7, RDW Std Deviation 44.0 H, RDW Coeff of Javid 12.7, Plt Count 221, MPV 9.5, Immature Gran % (Auto) 0.700, Neut % (Auto) 89.7 H, Lymph % (Auto)3.6 L, [place] % (Auto) 5.9, Eos % (Auto) 0.0, Baso % (Auto) 0.1, Absolute Neuts (auto) 9.8 H, Absolute Lymphs (auto) 0.40 L, Nucleated RBC % 0, Sodium 136, Potassium 4.3, Chloride 105, Carbon Dioxide 18.3 L, Anion Gap 13, BUN 35 H, Creatinine 1.67 H, Estim Creat Clear Calc 36.85 L, Est GFR (MDRD) Non-Af 42 L, BUN/Creatinine Ratio 20.9 H, Glucose 115 H, Calcium 8.7, Total Bilirubin 0.98, AST 109 H, ALT 35, Alkaline Phosphatase 54, Total Creatine Kinase 2755 H, Total Protein 6.5, Albumin 3.6, Globulin 2.8, Albumin/Globulin Ratio 1.3, Lipase 14 11/04/24 18:50: Urine Color Yellow, Urine Clarity Sl. Cloudy, Urine pH 5.0, Ur Specific [place] 1.015, Urine Protein 100 H, Urine Glucose (UA) Normal, Urine Ketones Negative, Urine Occult Blood 250 H, Urine Nitrite Negative, Urine Bilirubin Negative, Urine Urobilinogen Normal, Ur Leukocyte Esterase 500 H, Urine RBC 10-25 SEEN, Urine WBC 10-25 SEEN, Ur Squamous Epith Cells 0 SEEN, Urine Bacteria 3+, Fine Granular Casts 0-5 SEEN, Urine Mucus 0 SEEN Imaging Radiology Impression Brain CT 11/04/24 17:07 IMPRESSION: No acute intracranial findings. Age-appropriate senescent change. Mild inflammatory changes in the ethmoid and left sphenoid sinus. Reading Location: [facility] Cervical Spine CT 11/04/24 17:07 IMPRESSION: Status post dorsal fusion with instrumentation, C3 through C7. No acute fractures. Multilevel degenerative disc disease. Multilevel foraminal narrowing and facet arthropathy. Reading Location: [facility] Chest/Abdomen/Pelvis CT 11/04/24 17:07 IMPRESSION: 1. Parenchymal scarring in the lung bases. 2. Severe coronary artery calcifications. 3. Suspicion of cholelithiasis. 4. Left obstructive uropathy with moderate hydroureteronephrosis. Associated left perirenal fat stranding. 5. Bilateral nonobstructive nephrolithiasis. 6. Chronic prostatitis. 7. Right hydrocele. 8. Diverticulosis. 9. Bilateral fat containing inguinal hernias. 10. Other nonacute findings detailed above. Reading Location: [facility] Hip/Pelvis X-Ray 11/04/24 18:00 IMPRESSION: Severe osteoarthritis involving the right hip. Reading Location: [facility] Imaging Services [address] [place], [place] [id number] CTA Chest W/WO Contrast MR#: [id number] Acct: [id number] Name: AARON CHAPA Rep #: [id number] : 1950 M 74 From: Abdias Garcia MD PCP: Dr. Mitch Mcwilliams MD Status: ADM IN Study: CTA Chest W/WO Contrast Date of Exam: 11/04/24 Exam# [id number] Ordering Dr: Joel Baldwin DO PROCEDURE: CTA CHEST W/WO CONTRAST 11/04/2024 REASON FOR EXAM: ELEVATED D-DIMER. TECHNIQUE: CTA axial imaging of the chest with intravenous contrast. Contiguous axial scans of 1.25 mm slice thicknesses. Sagittal and coronal reconstruction images were obtained. One or more dose reduction techniques were used (e.g., automated exposure control, adjustment of mA and/or kv according to patient size, use of iterative reconstruction technique). CONTRAST: Isovue 370 VOLUME: 100mL RADIATION DOSE SUMMARY: CTDlvol: 49.07 mGy DLP: 531.04 mGycm COMPARISON: Earlier study dated 11/04/2024. FINDINGS: Lymph nodes: Heart: No cardiac enlargement. Coronary artery calcifications. Thoracic Aorta: No aneurysm or dissection. Pulmonary Vessels: No intraluminal filling defects. No central pulmonary arterydilatation. Lungs and Airways: Parenchymal scarring and or subsegmental atelectasis in the lower lobes. Pleura: No pneumothorax. No pleural effusions. No abnormal thickening. Upper Abdomen: Large right renal cyst measuring 5.3 x 4.9 cm. Bones: Unchanged. CT/CTA Chest W/WO Contrast IMPRESSION: No evidence of pulmonary embolism. Large right renal cyst. Stable chronic changes in the bilateral lungs. Reading Location: [facility] CC: Dr. Joel Baldwin DO; Dr. Mitch Mcwilliams MD ~ Visual Specialist: Signed Assessment & Plan Assessment/Plan (1) Rhabdomyolysis: QUALIFIERS: Encounter type: initial encounter Rhabdomyolysis type: traumatic Qualified Code(s): T79.6XXA - Traumatic ischemia of muscle, initial encounter (2) Fall at home: QUALIFIERS: Encounter type: initial encounter Qualified Code(s): W19.XXXA - Unspecified fall, initial encounter; Y92.009 - Unspecified place in unspecified non-institutional (private) residence as the place of occurrence of the external cause (3) Acute cystitis with hematuria: (4) Calculus of left ureter: (5) Pyelonephritis of left kidney: (6) Fever: QUALIFIERS: Fever type: due to other condition Qualified Code(s):R50.81 - Fever presenting with conditions classified elsewhere (7) Chronic prostatitis: (8) BPH (benign prostatic hyperplasia): QUALIFIERS: Lower urinary tract symptom presence: unspecified whether lower urinary tract symptoms present Qualified Code(s): N40.0 - Benign prostatic hyperplasia without lower urinary tract symptoms (9) Generalized weakness: (10) Ambulatory dysfunction: (11) Morbid obesity with BMI of 45.0-49.9, adult: PLAN: Plan 1. Elevated CK of 2,755 U/L present on admission consistent with Rhabdomyolysisafter recent Fall with prolonged down time - Admit to general medical floor. Aggressively volume resuscitate and recheck CK and CMP in AM to follow trend. Checked d-dimer - which was elevated 3.6 present on admission with CTA of chest with IV contrast negative for PE lower extremity Doppler pending in a.m. 2. UA positive for Acute Cystitis; with microscopic hematuria with corresponding CT evidence of Left obstructive uropathy with moderate hydronephrosis and associated Left perirenal fat stranding (consistent with suspected Left Pyelonephritis) with bilateral nonobstructive nephrolithiasis andChronic Prostatitis in the setting of previously known BPH complicating and recently diagnosed Left renal calculus; s/p ECSWL and stent removal by Dr. Pham of urology on October 19, 2024 complicating #1 - Stop IV ceftriaxone begun in the ER and begin piperacillin-tazobactam with patient spiking fever to 102.3 degrees Fahrenheit after ceftriaxone and await culture/sensitivity data. Give acetaminophen prn for [id number] (level 1- 5/10) pain or fever. Give morphine IV prn for severe (level 6-10/10) pain. Keep NPO after MN for impending ureteral stent. Finally, we will consult Dr. Pham to see patient onrounds in the AM for replacement of recently removed Left ureteral stent with help appreciated in advance. 3. Generalized Weakness with Ambulatory Dysfunction due to #1 & #2 in the setting of previously known Chronic Debility and Frequent Falls - Check B12 and Folate to evaluate for possible neuropathy. PT/OT and Case Management to consult and treat on rounds in AM for further recommendations with help appreciated in advance. 4. Morbid obesity; with BMI of 46.8 this admission adding to the burden of disease outlined from #1 - #3 - Weight loss will be recommended. Check TSH. This complicates his case and may hamper recovery. 5. OA; with sciatica, chronic back pain plus history of cervical spine surgery adding to the medical complexity of #1 - #4 - Noted. 6. Essential Hypertension; on lisinopril - Continue current regimen plus give IV hydralazine prn for systolic blood pressure > 160 mmHg. 7. Hyperlipidemia; on atorvastatin - Hold statin in case of possible myotoxicity contributing to #3. Check Lipid Profile. 8. DM-2; of unknown control on metformin - Hold metformin while admitted. ADA diet. FSBS q. AC/HS plus lowest-intensity SSI. Check HgbA1c to objectively evaluate quality of diabetic control. 9. History of MRSA - Noted. 10. Chronic venous stasis dermatitis - Noted. 11. DVT prophylaxis - SCD's only at this time with impeding urologic procedure in AM. Total time: Approximately (but not less than) 75 minutes. Charges/Coding Visit Charges Inpatient E&M: 49405 Init Hosp L3 11/05/24 0642 <Electronically signed by Joel Baldwin DO> Cosigner Signature (if applicable): CC: Dr. Joel Baldwin DO; Dr. Mitch Mcwilliams MD~ Signed [facility] Work Phone: [phone] Consult note [facility] Medical Records Department [address] [place] [address] Consultation - Urology 11/05/24 0722 MR#: [id number] Acct: [id number] Name: AARON CHAPA HELLEN Rep #:[id number] : 1950 74 From: Jose Manuel Pham MD PCP: Dr. Mitch Mcwliliams MD Status:ADM I N Location: [facility] EB463-1 Assessment & Plan Assessment/Plan (1) Calculus of left ureter: PLAN: plan to laser the stone is the day with laser lithotripsy npo HPI Consult Data Date of Consult: 11/05/24 HPI Narrative Reason for Consultation: left kidney stones HPI Narrative: AARON CHAPA, is a 74 M who presents to the hospital with a fall recently weakness CT scan was donedemonstrated multiple stones in the distal left ureterthat are causing obstruction he had treatmentwith shockwave lithotripsy. Keep NPO plan to taken the surgery today and laser the remaining stone fragments the kidneys out. Possible he may need aa stent. [facility] Medical History Loss of hearing Walker as ambulation aid High cholesterol History of stress test Wears glasses History of MRSA infection Non-smoker Physical debility Debility Closed head injury Frequent falls Sciatica Kidney stones Decreased hearing Hyperlipemia Hypertension Chronic back pain Arthritis Type 2 diabetes mellitus Home Medications ?Medication ?Instructions ?Recorded ?Last Taken ?Type atorvastatin 40 mg tablet 40 mg PO QHS CHOLESTEROL 09/2610/18/24 History lisinopril 5 mg tablet 5 mg PO DAILY blood pressure 04/25/19 10/18/24 History metformin 500 mg tablet 500 mg PO BID diabetes 02/0210/18/24 History acetaminophen 500 mg tablet 1,000 mg (2 x 500 mg) PO Q 6H PRN 12/03/21 10/18/24 Rx PRN Pain Score 1-3 #0 tabs gabapentin 100 mg capsule 100 mg PO TIDCM pain 30 days #90 12/03/21 10/18/24 Rx caps tamsulosin 0.4 mg capsule 0.4 mg PO DAILY@1730 bph 14 days 09/25/24 10/18/24 Rx #14 caps Allergy/AdvReac Type Severity Reaction Status Date / Time oxycodone HCl (From Percocet) Allergy Intermediate Other Verified 10/19/24 11:59 Family History Father Mental disorder Heart disease Mother Heart disease High cholesterol Surgical History History of kidney stones History of cervical spinal surgery Social History household members: none Smoking Status: Never smoker alcohol intake: never substance use type: does not use what type of physical activity do you participate in: walking frequency: daily Lab / Micro Data 11/05/24 04:16 11/05/24 04:16 Labs: Laboratory Results - last 24 hr 11/04/24 17:20: WBC 11.0, RBC 3.46 L, Hgb 11.3 L, Hct 33.5 L, MCV 96.8 H, MCH 32.7 H, MCHC 33.7, RDW Std Deviation 44.0 H, RDW Coeff of Javid 12.7, Plt Count 221, MPV 9.5, Immature Gran % (Auto) 0.700,Neut % (Auto) 89.7 H, Lymph % (Auto)3.6 L, [place] % (Auto) 5.9, Eos % (Auto) 0.0, Baso % (Auto) 0.1, Absolute Neuts (auto) 9.8 H, Absolute Lymphs (auto) 0.40 L, Nucleated RBC % 0, Sodium 136, Potassium4.3, Chloride 105, Carbon Dioxide 18.3 L, Anion Gap 13, BUN 35 H, Creatinine 1.67 H, Estim Creat Clear Calc 36.85 L, Est GFR (MDRD) Non-Af 42 L, BUN/Creatinine Ratio 20.9 H, Glucose 115 H, [id number] 6.6, Calcium 8.7, Magnesium 1.5, Total Bilirubin 0.98, AST 109 H, ALT 35, Alkaline Phosphatase 5 4,Total Creatine Kinase 2755 H, Total Protein 6.5, Albumin 3.6, Globulin 2.8, Albumin/Globulin Ratio 1.3, Lipase 14, Vitamin B12 483, TSH 0.420 11/04/24 18:50: Urine Color Yellow, Urine Clarity Sl. Cloudy, Urine pH 5.0, Ur Specific [place] 1.015, Urine Protein 100 H, Urine Glucose (UA) Normal, Urine Ketones Negative, Urine Occult Blood 250 H, Urine Nitrite Negative, Urine Bilirubin Negative, Urine Urobilinogen Normal, Ur Leukocyte [id number] H, Urine RBC 10-25 SEEN, Urine WBC 10-25 SEEN, Ur Squamous Epith Cells 0 SEEN, Urine Bacteria 3+, Fine Granular Casts 0-5 SEEN, Urine Mucus 0 SEEN 11/04/24 20:58: Lactic Acid 1.0 11/04/24 21:56: POC Glucose 110 H 11/04/24 22:06: D-Dimer Quant (PE/DVT) 3.60 H*, Serum Folate 6.89 11/05/24 04:16: WBC 7.3, RBC 3.39 L, Hgb 10.8 L, Hct 33.4 L, MCV 98.5 H, MCH 31.9, MCHC 32.3, RDW Std Deviation 46.2 H, RDW Coeff of Javid 13.0, Plt Count 193,MPV 9.4, Immature Gran % (Auto) 1.400 H, Neut % (Auto) 85.5 H, Lymph % (Auto) 5.3 L, [place] % (Auto) 7.7, Eos % (Auto) 0.0, Baso % (Auto) 0.1, Absolute Neuts (auto) 6.3, Absolute Lymphs (auto) 0.39 L, Nucleated RBC % 0, Sodium 136, Potassium 4.9, Chloride 107, Carbon Dioxide 17.2 L, Anion Gap 12, BUN 38 H, Creatinine 1.79 H, Estim Creat ClearCalc 40.12 L, Est GFR (MDRD) Non-Af 39 L, BUN/Creatinine Ratio 20.9 H, Glucose 119 H, Calcium 8.1, Phosphorus 2.5 L, Total Bilirubin 0.69, AST 130 H, ALT 44, Alkaline Phosphatase 49, Total Creatine Ki nase 2794 H, Total Protein 5.8 L, Albumin 3.3 L, Globulin 2.6, Albumin/Globulin Ratio 1.3, Triglycerides 122, Cholesterol 104, LDL Cholesterol,Calc 38, VLDL Cholesterol 24, HDL Cholesterol 42, Cholesterol/HDL Ratio 2.51 11/05/24 05:09: POC Glucose 121 H Imaging Radiology Impression Brain CT 11/04/24 17:07 IMPRESSION: No acute intracranial findings. Age-appropriate senescent change. Mild inflammatory changes in the ethmoid and left sphenoid sinus. Reading Location: [facility] Cervical Spine CT 11/04/24 17:07 IMPRESSION: Status post dorsal fusion with instrumentation, C3 through C7. No acute fractures. Multilevel degenerative disc disease. Multilevel foraminal narrowing and facet arthropathy. Reading Location: [employer] [facility] Chest/Abdomen/Pelvis CT 11/04/24 17:07 IMPRESSION: 1. Parenchymal scarring in the lung bases. 2. Severe coronary artery calcifications. 3. Suspicion of cholelithiasis. 4. Left obstructive uropathy with moderate hydroureteronephrosis. Associated left perirenal fat stranding. 5. Bilateral nonobstructive nephrolithiasis. 6. Chronic prostatitis. 7. Right hydrocele. 8. Diverticulosis. 9. Bilateral fat containing inguinal hernias. 10. Other nonacute findings detailed above. Reading Location: [employer] Hip/Pelvis X-Ray 11/04/24 18:00 IMPRESSION: Severe osteoarthritis involving the right hip. Reading Location: [employer] Chest CTA 11/04/24 22:40 IMPRESSION: No evidence of pulmonary embolism. Large right renal cyst. Stable chronic changes in the bilateral lungs. Reading Location: [facility] 11/05/24 0723 Cosigner Signature (if applicable): CC: Dr. Mitch Mcwilliams MD~ Signed [facility]03-31-2025 History and physical note [facility] Medical Records Department [address] [place] [address] H&P Exam - Hospitalist 11/04/241999 MR#: [id number] Acct: [id number] Name: AARON CHAPA Rep #:[id number] : 1950 74 From: Joel Grossman DO PCP: Dr. Mitch Mcwilliams MD Status:ADM I N Location: [facility] [id number] HPI - General General Date of Admission: 11/04/24 Date of Service: 03/30/25 Chief Complaint: Fall and Left Flank Pain. HPI Narrative AARON CHAPA, is a 74 M with a past medical history of essential hypertension; on lisinopril, hyperlipidemia; on atorvastatin, morbid obesity; with BMI of 46.8this admission, DM-2; of unknown controlon metformin, BPH; on tamsulosin, history of MRSA, chronic debility; with frequent falls and closedhead injury (2011), chronic venous stasis dermatitis, OA; with sciatica, chronic back pain plus history of cervical spine surgery and recently diagnosed Left renal calculus; s/p ECSWL and stent removal by Dr. Pham of urology on October 19, 2024who presents to [facility] ER complaining of fall and Left flankpain. Mr. Chapa reports his symptoms began last night when he fell while trying to get out of his recliner and then could not get back up. He stayed on the floor until ~3:00 PM today when his daughter came to check on him because she could not get him on the phone and foundhim on the floor. He is not sure if he had significant head trauma or LOC. He was noted to be A&Ox4 in the ER but his daughter claimed he still seemed confused. He also admits to Left-sidedflank pain that is radiating into his abdomen with intermittent nausea that is very similar to his previous kidney stone, in addition to Right-sided abdominal pain and hip pain. He denies associated fevers,chills, chest pain, SOB, heart racing, palpitations, paresthesias, headache or rash. In the ER he was noted to have and elevated CK of 2,755 U/L present on admissionconsistent with Rhabdomyolysis complicated by UA positive for Acute Cystitis; with microscopic hematuria compounded by CT evidence of Left obstructive uropathy with moderate hydronephrosis and associated Left perirenal fat stranding (consistent with suspected Left Pyelonephritis) with bilateral nonobstructive nephrolithiasis and Chronic Prostatitis compounded by clinical evidence of Generalized Weakness with Ambulatory Dysfunction after recent Fall in the setting of previously known Chronic Debility and he was then admitted to the general medical floor for ongoing care for a stay that is expected to extendbeyond2 midnights. [facility] Medical History Loss of hearing Walker as ambulation aid High cholesterol History of stress test Wears glasses History of MRSA infection Non-smoker Physical debility Debility Closed head injury Frequent falls Sciatica Kidney stones Decreased hearing Hyperlipemia Hypertension Chronic back pain Arthritis Type 2 diabetes mellitus Home Medications ?Medication ?Instructions ?Recorded ?Last Taken ?Type atorvastatin 40 mg tablet 40 mg PO QHS CHOLESTEROL 09/2610/18/24 History lisinopril 5 mg tablet 5 mg PO DAILY blood pressure 04/25/19 10/18/24 History metformin 500 mg tablet 500 mg PO BID diabetes 02/0210/18/24 History acetaminophen 500 mg tablet 1,000 mg (2 x 500 mg) PO Q 6H PRN 12/03/21 10/18/24 Rx PRN Pain Score 1-3 #0 tabs gabapentin 100 mg capsule 100 mg PO TIDCM pain 30 days #90 12/03/21 10/18/24 Rx caps tamsulosin 0.4 mg capsule 0.4 mg PO DAILY@1730 bph 14 days 09/25/24 10/18/24 Rx #14 caps Allergy/AdvReac Type Severity Reaction Status Date / Time oxycodone HCl (From Percocet) Allergy Intermediate Other Verified 10/19/24 11:59 Family History Father Mental disorder Heart disease Mother Heart disease High cholesterol Surgical History History of kidney stones History of cervical spinal surgery Social History household members: none Smoking Status: Never smoker alcohol intake: never substance use type: does not use what type of physical activity do you participate in: walking frequency: daily ROS ROS Narrative Review of Systems: Constitutional: Patient denies fever or chills. Eyes: Patient denies changes in vision or discharge from eyes. ENT: Patient denies runny nose, sore throat or ear pain. Resp: Patient denies SOB or cough. CV: Patient denies chest pain, palpitations, heart racing or LE edema. GI: Patient admits to Right sided abdominal pain after fall with nausea but he denies vomiting, diarrhea or constipation. : Patient admits to Left flank pain as per HPI. MSK: Patient admits to generalized weakness with ambulatory dysfunction and frequent falls as per HPI. Skin: Patient denies rash. Psych: Patient denies symptoms of uncontrolled depression or anxiety. Neuro: Patient denies headache, paresthesias or focal neurologic deficits. Allergy: Patient denies lip swelling, tongue swelling or urticaria. Hematology: Patient denies easy bleeding or easy bruisability. Endocrinology: Patient denies polyuria, polydipsia or polyphagia. 14 point ROS otherwise negative except for positives noted above in HPI. Vital Signs Vital Signs Vital Signs: 11/04/24 16:33 11/04/24 16:40 11/04/24 16:47 Temperature 99.7 F H Temperature Source Oral Pulse Rate 91 89 Respiratory Rate 18 16 Respiratory Effort Normal Respiratory Depth Normal Respiratory Pattern Normal Blood Pressure 119/72 Blood Pressure Mean 87 Pulse Ox 95 96 Oxygen Delivery Method Room Air Room Air Room Air Oxygen Flow Rate (L/min) 11/04/24 17:32 11/04/24 18:53 11/04/24 19:00 Temperature Temperature Source Pulse Rate 88 105 H Respiratory Rate 20 H 20 H Respiratory Effort Respiratory Depth Respiratory Pattern Blood Pressure 128/82 H 136/79 H 113/67 Blood Pressure Mean 97 98 82 Pulse Ox 92 96 Oxygen Delivery Method Nasal Cannula Room Air Oxygen Flow Rate (L/min) 2 Weight Weight: 216 lb 4.375 oz Body Mass Index (BMI) 46.7 Physical Exam Const alert, oriented x3 and no apparent distress Constitutional Narrative: Morbid obesity. General Appearance: cooperative HEENT normocephalic, head/scalp atraumatic and hearing grossly normal bilaterally HEENT Narrative: Mucous membranes dry. Eyes PERRL, EOMs intact bilaterally and conjunctivae normal Neck no lymphadenopathy and supple Resp normal respiratory effort, no retractions, no use of accessory muscles and clearto auscultation bilaterally Cardio regular rate and regular rhythm GI normal to inspection, nondistended, normoactive bowel sounds, soft to palpation and non-distended GI Narrative: Left CVA TTP. Extremity Extremity Narrative: Patient has decreased ROM of the Right hip with positive log-roll with normal pulses and no signs of vasular compromise. Skin Skin Narrative: Patient has evidence of chronic venous stasis dermatitis of both lower extremities. Neuro oriented x3, CN's II-XII intact bilaterally, moves all extremities and no focal motor deficits Sensorium / Orientation: awake, alert, oriented to person, oriented to place andoriented to time Speech: speech normal Psych affect normal Results Medical Records Data Attestation: I reviewed the patient's medical records Lab / Micro Data Attestation: I reviewed the patient's lab results. 11/05/24 04:16 11/05/24 04:16 Labs: Laboratory Results - last 24 hr 11/04/24 17:20: WBC 11.0, RBC 3.46 L, Hgb 11.3 L, Hct 33.5 L, MCV 96.8 H, MCH 32.7 H, MCHC 33.7, RDW Std Deviation 44.0 H, RDW Coeff of Javid 12.7, Plt Count 221, MPV 9.5, Immature Gran % (Auto) 0.700,Neut % (Auto) 89.7 H, Lymph % (Auto)3.6 L, [place] % (Auto) 5.9, Eos % (Auto) 0.0, Baso % (Auto) 0.1, Absolute Neuts (auto) 9.8 H, Absolute Lymphs (auto) 0.40 L, Nucleated RBC % 0, Sodium 136, Potassium4.3, Chloride 105, Carbon Dioxide 18.3 L, Anion Gap 13, BUN 35 H, Creatinine 1.67 H, Estim Creat Clear Calc 36.85 L, Est GFR (MDRD) Non-Af 42 L, BUN/Creatinine Ratio 20.9 H, Glucose 115 H, Calcium 8.7, Total Bilirubin 0.98, AST 109 H, ALT 35, Alkaline Phosphatase 54, Total Creatine Kinase 2755 H, Total Protein 6.5, Albumin 3.6, Globulin 2.8, Albumin/Globulin Ratio 1.3, Lipase 14 11/04/24 18:50: Urine Color Yellow, Urine Clarity Sl. Cloudy, Urine pH 5.0, Ur Specific [place] 1.015, Urine Protein 100 H, Urine Glucose (UA) Normal, Urine Ketones Negative, Urine Occult Blood 250 H, Urine Nitrite Negative, Urine Bilirubin Negative, Urine Urobilinogen Normal, Ur Leukocyte [id number] H, Urine RBC 10-25 SEEN, Urine WBC 10-25 SEEN, Ur Squamous Epith Cells 0 SEEN, Urine Bacteria 3+, Fine Granular Casts 0-5 SEEN, Urine Mucus 0 SEEN Imaging Radiology Impression Brain CT 11/04/24 17:07 IMPRESSION: No acute intracranial findings. Age-appropriate senescent change. Mild inflammatory changes in the ethmoid and left sphenoid sinus. Reading Location: [facility] Cervical Spine CT 11/04/24 17:07 IMPRESSION: Status post dorsal fusion with instrumentation, C3 through C7. No acute fractures. Multilevel degenerative disc disease. Multilevel foraminal narrowing and facet arthropathy. Reading Location: [facility] Chest/Abdomen/Pelvis CT 11/04/24 17:07 IMPRESSION: 1. Parenchymal scarring in the lung bases. 2. Severe coronary artery calcifications. 3. Suspicion of cholelithiasis. 4. Left obstructive uropathy with moderate hydroureteronephrosis. Associated left perirenal fat stranding. 5. Bilateral nonobstructive nephrolithiasis. 6. Chronic prostatitis. 7. Right hydrocele. 8. Diverticulosis. 9. Bilateral fat containing inguinal hernias. 10. Other nonacute findings detailed above. Reading Location: [facility] Hip/Pelvis X-Ray 11/04/24 18:00 IMPRESSION: Severe osteoarthritis involving the right hip. Reading Location: [facility] Imaging Services [address] [place] [id number] CTA Chest W/WO Contrast MR#: [id number] Acct: [id number] Name: AARON CHAPA Rep #: [id number] : 1950 M 74 From: Abdias Garcia MD PCP: Dr. Mitch Mcwilliams MD Status: ADM IN Study: CTA Chest W/WO Contrast Date of Exam: 11/04/24 Exam# [id number] Ordering Dr: Joel Baldwin DO PROCEDURE: CTA CHEST W/WO CONTRAST 11/04/2024 REASON FOR EXAM: ELEVATED D-DIMER. TECHNIQUE: CTA axial imaging of the chest with intravenous contrast. Contiguous axial scans of 1.25 mm slice thicknesses. Sagittal and coronal reconstruction images were obtained. One or more dose reduction techniques were used (e.g., automated exposure control, adjustment of mAand/or kv according to patient size, use of iterative reconstruction technique). CONTRAST: Isovue 370 VOLUME: 100mL RADIATION DOSE SUMMARY: CTDlvol: 49.07 mGy DLP: 531.04 mGycm COMPARISON: Earlier study dated 11/04/2024. FINDINGS: Lymph nodes: Heart: No cardiac enlargement. Coronary artery calcifications. Thoracic Aorta: No aneurysm or dissection. Pulmonary Vessels: No intraluminal filling defects. No central pulmonary arterydilatation. Lungs and Airways: Parenchymal scarring and or subsegmental atelectasis in the lower lobes. Pleura: No pneumothorax. No pleural effusions. No abnormal thickening. Upper Abdomen: Large right renal cyst measuring 5.3 x 4.9 cm. Bones: Unchanged. CT/CTA Chest W/WO Contrast IMPRESSION: No evidence of pulmonary embolism. Large right renal cyst. Stable chronic changes in the bilateral lungs. Reading Location: [facility] CC: Dr. Joel Baldwin DO; Dr. Mitch Mcwilliams MD ~ Visual Specialist: Signed Assessment & Plan Assessment/Plan (1) Rhabdomyolysis: QUALIFIERS: Encounter type: initial encounter Rhabdomyolysis type: traumatic Qualified Code(s): T79.6XXA - Traumatic ischemia of muscle, initial encounter (2) Fall at home: QUALIFIERS: Encounter type: initial encounter Qualified Code(s): W19.XXXA - Unspecified fall, initial encounter; Y92.009 - Unspecified place in unspecified non-institutional (private) residence as the place of occurrence of the external cause (3) Acute cystitis with hematuria: (4) Calculus of left ureter: (5) Pyelonephritis of left kidney: (6) Fever: QUALIFIERS: Fever type: due to other condition Qualified Code(s):R50.81 - Fever presenting with conditions classified elsewhere (7) Chronic prostatitis: (8) BPH (benign prostatic hyperplasia): QUALIFIERS: Lower urinary tract symptom presence: unspecified whether lower urinary tract symptoms present Qualified Code(s): N40.0 - Benign prostatic hyperplasia without lower urinary tract symptoms (9) Generalized weakness: (10) Ambulatory dysfunction: (11) Morbid obesity with BMI of 45.0-49.9, adult: PLAN: Plan 1. Elevated CK of 2,755 U/L present on admission consistent with Rhabdomyolysisafter recent Fall with prolonged down time - Admit to general medical floor. Aggressively volume resuscitate and recheckCK and CMP in AM to follow trend. Checked d-dimer - which was elevated 3.6 present on admission with CTA of chest with IV contrast negative for PE lower extremity Doppler pending in a.m. 2. UA positive for Acute Cystitis; with microscopic hematuria with corresponding CT evidence of Left obstructive uropathy with moderate hydronephrosis and associated Left perirenal fat stranding (consistent with suspected Left Pyelonephritis) with bilateral nonobstructive nephrolithiasis andChronic Prostatitis in the setting of previously known BPH complicating and recently diagnosed Left renal calculus; s/p ECSWL and stent removal by Dr. Pham of urology on October 19, 2024 complicating #1 - Stop IV ceftriaxone begun in the ER and begin piperacillin-tazobactam with patient spiking fever to 102.3 degrees Fahrenheit after ceftriaxone and await culture/sensitivity data. Give acetaminophen prn for [id number] (level 1-5/10) pain or fever. Give morphine IV prn for severe (level 6-10/10) pain. Keep NPO after MN for impending ureteral stent. Finally, we will consult Dr. Pham to see patient onrounds in the AM for replacement of recently removed Left ureteral stent with help appreciatedin advance. 3. Generalized Weakness with Ambulatory Dysfunction due to #1 & #2 in the setting of previouslyknown Chronic Debility and Frequent Falls - Check B12 and Folate to evaluate for possible neuropathy. PT/OT and Case Management to consult and treat on rounds in AM for further recommendations with help appreciated in advance. 4. Morbid obesity; with BMI of 46.8 this admission adding to the burden of disease outlined from #1- #3 - Weight loss will be recommended. Check TSH. This complicates his case and may hamper recovery. 5. OA; with sciatica, chronic back pain plus history of cervical spine surgery adding to the medical complexity of #1 - #4 - Noted. 6. Essential Hypertension; on lisinopril - Continue current regimen plus give IV hydralazine prn for systolic blood pressure > 160 mmHg. 7. Hyperlipidemia; on atorvastatin - Hold statin in case of possible myotoxicity contributing to #3. Check Lipid Profile. 8. DM-2; of unknown control on metformin - Hold metformin while admitted. ADA diet. FSBS q. AC/HS plus lowest-intensity SSI. Check HgbA1c to objectively evaluate quality of diabetic control. 9. History of MRSA - Noted. 10. Chronic venous stasis dermatitis - Noted. 11. DVT prophylaxis - SCD's only at this time with impeding urologic procedure in AM. Total time: Approximately (but not less than) 75 minutes. Charges/Coding Visit Charges Inpatient E&M: 92464 Init Hosp L3 11/05/24 0642 Cosigner Signature (if applicable): CC: Dr. Joel Baldwin DO; Dr. Mitch Mcwilliams MD~ Signed [facility]03-31-2025 Discharge summary Author Debbie Stout [facility] Note Date/Time November 04, 2024 11: 16pm [facility] Medical Records Department [address] [place] [address] Emergency Department Summary 11/04/24 MR#: [id number] Acct: [id number] Name: AARON CHAPA Rep #:[id number] : 1950 74 From: Debbie LAZAR PCP: Dr. Mitch Mcwilliams MD Status:ADM I N Location: [place] IF440-4 HPI <CADY Baig - Last Filed: 11/04/24 20:27> HPI - Fall History of Present Illness Chief Complaint: Fall Narrative Narrative: Patient presenting today with his family after his daughter found him lying on the floor this afternoon. She came to visit him yesterday, he lives at home by himself. He was complaining of left-sided abdominal pain reporting that it feltlike he had a kidney stone again. He does have a history of kidney stones and just had a R sided stent removed over a week ago. His daughter got him into therecliner and set his walker near him as well as his phone. Today she was not able to get a hold of him and when she came to check on him around 3 PM and he was lying on the ground. He reports that he tried to get up last night but fellto the ground and was not able to get back up. He is not sure if he hit his head or lost consciousness, he is not on any blood thinners. He is alert and oriented x 4 but daughter reports that he seems somewhat confused. He reports both left and right-sided abdominal pain that has somewhat improved and right sided hip pain. He denies fevers, chills, chest pain, and vomiting. [facility] <CADY Baig - Last Filed: 11/04/24 20:27> [facility] Medical History Loss of hearing Walker as ambulation aid High cholesterol History of stress test Wears glasses History of MRSA infection Non-smoker Physical debility Debility Closed head injury Frequent falls Sciatica Kidney stones Decreased hearing Hyperlipemia Hypertension Chronic back pain Arthritis Type 2 diabetes mellitus Home Medications ?Medication ?Instructions ?Recorded ?Last Taken ?Type atorvastatin 40 mg tablet 40 mg PO QHS CHOLESTEROL 09/2610/18/24 History lisinopril 5 mg tablet 5 mg PO DAILY blood pressure 04/25/19 10/18/24 History metformin 500 mg tablet 500 mg PO BID diabetes 02/0210/18/24 History acetaminophen 500 mg tablet 1,000 mg (2 x 500 mg) PO Q 6H PRN 12/03/21 10/18/24 Rx PRN Pain Score 1-3 #0 tabs gabapentin 100 mg capsule 100 mg PO TIDCM pain 30 days #90 12/03/21 10/18/24 Rx caps tamsulosin 0.4 mg capsule 0.4 mg PO DAILY@1730 bph 14 days 02/18/25 03/13/25 Rx #14 caps Allergy/AdvReac Type Severity Reaction Status Date / Time oxycodone HCl (From Percocet) Allergy Intermediate Other Verified 10/19/24 11:59 Family History Father Mental disorder Heart disease Mother Heart disease High cholesterol Surgical History History of kidney stones History of cervical spinal surgery Social History household members: none Smoking Status: Never smoker alcohol intake: never substance use type: does not use what type of physical activity do you participate in: walking frequency: daily ROS <CADY Baig - Last Filed: 11/04/24 20:27> ROS ED Constitutional Constitutional ED: Denies chills or fever(s) Cardiovascular Cardiovascular: Denies chest pain Respiratory/Chest Respiratory/Chest: Denies dyspnea Gastrointestinal Gastrointestinal: Reports abdominal pain and nausea; Denies diarrhea or vomiting Genitourinary Genitourinary ED: Denies dysuria, hematuria or urinary urgency Musculoskeletal Musculoskeletal: Reports arthralgias; Denies neck pain Integumentary Denies Abrasions Neurologic Neurologic: Reports weakness; Denies paresthesias EXAM <CADY Baig - Last Filed: 11/04/24 20:27> Physical Exam Const Vital Signs: 11/04/24 16:33 11/04/24 16:40 11/04/24 16:47 Temperature 99.7 F H Temperature Source Oral Pulse Rate 91 89 Respiratory Rate 18 16 Respiratory Effort Normal Respiratory Depth Normal Respiratory Pattern Normal Blood Pressure 119/72 Blood Pressure Mean 87 Pulse Ox 95 96 Oxygen Delivery Method Room Air Room Air Room Air Oxygen Flow Rate (L/min) 11/04/24 17:32 11/04/24 18:53 11/04/24 19:00 Temperature Temperature Source Pulse Rate 88 105 H Respiratory Rate 20 H 20 H Respiratory Effort Respiratory Depth Respiratory Pattern Blood Pressure 128/82 H 136/79 H 113/67 Blood Pressure Mean 97 98 82 Pulse Ox 92 96 Oxygen Delivery Method Nasal Cannula Room Air Oxygen Flow Rate (L/min) 2 11/04/24 20:00 11/04/24 20:20 11/04/24 20:22 Temperature 102.3 F H 102.3 F H Temperature Source Axillary Pulse Rate 99 94 88 Respiratory Rate 22 H 20 H 18 Respiratory Effort Respiratory Depth Respiratory Pattern Blood Pressure 119/65 121/65 H 121/65 H Blood Pressure Mean 83 83 83 Pulse Ox 95 96 96 Oxygen Delivery Method Room Air Room Air Oxygen Flow Rate (L/min) 0 Positive well nourished, well developed and no apparent distress General Appearance ED: well developed HEENT Reports normocephalic and head/scalp atraumatic Mouth ED: Yes moist mucous membranes normal Eyes PERRL and EOMs intact bilaterally Neck full ROM and supple Chest Wall inspection of chest normal Resp normal respiratory effort and clear to auscultation bilaterally Cardio regular rate and regular rhythm GI soft to palpation, non-tender, non-distended and no masses Back/Spine normal ROM and normal to inspection Extremity normal to inspection and full ROM Extremity Narrative: Positive logroll on the right with pain to palpation to the right greater trochanter. Right DP pulse audible with Doppler. Left DP pulse 2+. Neuro oriented x3, CN's II-XII intact bilaterally, moves all extremities, no focal motor deficits and no sensory deficits noted Sensorium / Orientation: awake and alert Psych mental status grossly normal and thought process normal Skin no rashes or lesions noted and no wounds <Dr. Bryant Zavala, DO - Last Filed: 11/04/24 23:16> Physical Exam Const Vital Signs: 11/04/24 16:33 11/04/24 16:40 11/04/24 16:47 Temperature 99.7 F H Temperature Source Oral Pulse Rate 91 89 Respiratory Rate 18 16 Respiratory Effort Normal Respiratory Depth Normal Respiratory Pattern Normal Blood Pressure 119/72 Blood Pressure Mean 87 Pulse Ox 95 96 Oxygen Delivery Method Room Air Room Air Room Air Oxygen Flow Rate (L/min) 11/04/24 17:32 11/04/24 18:53 11/04/24 19:00 Temperature Temperature Source Pulse Rate 88 105 H Respiratory Rate 20 H 20 H Respiratory Effort Respiratory Depth Respiratory Pattern Blood Pressure 128/82 H 136/79 H 113/67 Blood Pressure Mean 97 98 82 Pulse Ox 92 96 Oxygen Delivery Method Nasal Cannula Room Air Oxygen Flow Rate (L/min) 2 11/04/24 20:00 11/04/24 20:20 11/04/24 20:22 Temperature 102.3 F H 102.3 F H Temperature Source Axillary Pulse Rate 99 94 88 Respiratory Rate 22 H 20 H 18 Respiratory Effort Respiratory Depth Respiratory Pattern Blood Pressure 119/65 121/65 H 121/65 H Blood Pressure Mean 83 83 83 Pulse Ox 95 96 96 Oxygen Delivery Method Room Air Room Air Oxygen Flow Rate (L/min) 0 [facility] <CADY Baig - Last Filed: 11/04/24 20:27> [facility] Narrative Medical decision making narrative: Patient presenting today after being found on the ground by his daughter, she last checked on him yesterday and he reports that he fell last night and was unable to get up. He reports pain to his right hip and has had abdominal pain since yesterday with a history of kidney stones. Daughter reports he seems somewhat confused, he is alert and oriented x 4 for me. Labs were obtained, CBCshows an H&H of 11.3 and 33.5, this is improved from previous labs. His creatinine is 1.67, BUN 35, this is also around baseline. CK is elevated here at 2755 consistent with rhabdomyolysis. Patient given IV fluids. Right hip x-ray obtained to assess for fracture and is negative. CT scan of the chest, abdomen, and pelvis obtained to assess for infiltrate and kidney stones and shows 2 left-sided ureteral stones, there is a 4 mm stone and a [address] scan of the brain obtained to assess for intracranial bleed and is negative, cervical spine CT negative for fracture. UA is consistent with a UTI, his urinewas cultured and he was given a dose of Rocephin here. I did consult Dr. Pham, his urologist. He would like him to be n.p.o. so he can possibly place a stent tomorrow. I will speak with the hospitalist regarding admission. Patient admitted in stable condition. The nurse did inform me at 20:22 that he developed a fever, he was ordered Tylenol. Initially he did not meet SIRS criteria but blood cultures were added on. Lab Data Attestation: I reviewed the patient's lab results. Labs: Laboratory Results - last 24 hr 11/04/24 11/04/24 17:20 18:50 WBC 11.0 RBC 3.46 L Hgb 11.3 L Hct 33.5 L MCV 96.8 H MCH 32.7 H MCHC 33.7 RDW Std Deviation 44.0 H RDW Coeff of Javid 12.7 Plt Count 221 MPV 9.5 Immature Gran % (Auto) 0.700 Neut % (Auto) 89.7 H Lymph % (Auto) 3.6 L [place] % (Auto) 5.9 Eos % (Auto) 0.0 Baso % (Auto) 0.1 Absolute Neuts (auto) 9.8 H Absolute Lymphs (auto) 0.40 L Nucleated RBC % 0 Sodium 136 Potassium 4.3 Chloride 105 Carbon Dioxide 18.3 L Anion Gap 13 BUN 35 H Creatinine 1.67 H Estim Creat Clear Calc 36.85 L Est GFR (MDRD) Non-Af 42 L BUN/Creatinine Ratio 20.9 H Glucose 115 H Hemoglobin A1c 6.6 Calcium 8.7 Magnesium 1.5 Total Bilirubin 0.98 AST 109 H ALT 35 Alkaline Phosphatase 54 Total Creatine Kinase 2755 H Total Protein 6.5 Albumin 3.6 Globulin 2.8 Albumin/Globulin Ratio 1.3 Lipase 14 Vitamin B12 483 TSH 0.420 Urine Color Yellow Urine Clarity Sl. Cloudy Urine pH 5.0 Ur Specific [place] 1.015 Urine Protein 100 H Urine Glucose (UA) Normal Urine Ketones Negative Urine Occult Blood 250 H Urine Nitrite Negative Urine Bilirubin Negative Urine Urobilinogen Normal Ur Leukocyte Esterase 500 H Urine RBC 10-25 SEEN Urine WBC 10-25 SEEN Ur Squamous Epith Cells 0 SEEN Urine Bacteria 3+ Fine Granular Casts 0-5 SEEN Urine Mucus 0 SEEN Radiography X-Ray: Read by ED Physician Diagnostic Testing: Clinical Impression(s) from Imaging Studies Brain CT 11/04/24 17:07 IMPRESSION: No acute intracranial findings. Age-appropriate senescent change. Mild inflammatory changes in the ethmoid and left sphenoid sinus. Reading Location: [facility] Cervical Spine CT 11/04/24 17:07 IMPRESSION: Status post dorsal fusion with instrumentation, C3 through C7. No acute fractures. Multilevel degenerative disc disease. Multilevel foraminal narrowing and facet arthropathy. Reading Location: [facility] Chest/Abdomen/Pelvis CT 11/04/24 17:07 IMPRESSION: 1. Parenchymal scarring in the lung bases. 2. Severe coronary artery calcifications. 3. Suspicion of cholelithiasis. 4. Left obstructive uropathy with moderate hydroureteronephrosis. Associated left perirenal fat stranding. 5. Bilateral nonobstructive nephrolithiasis. 6. Chronic prostatitis. 7. Right hydrocele. 8. Diverticulosis. 9. Bilateral fat containing inguinal hernias. 10. Other nonacute findings detailed above. Reading Location: [facility] Hip/Pelvis X-Ray 11/04/24 18:00 IMPRESSION: Severe osteoarthritis involving the right hip. Reading Location: [facility] <Dr. Bryant Zavala, DO - Last Filed: 11/04/24 23:16> [facility] Lab Data Labs: Laboratory Results - last 24 hr 11/04/24 11/04/24 17:20 18:50 WBC 11.0 RBC 3.46 L Hgb 11.3 L Hct 33.5 L MCV 96.8 H MCH 32.7 H MCHC 33.7 RDW Std Deviation 44.0 H RDW Coeff of Javid 12.7 Plt Count 221 MPV 9.5 Immature Gran % (Auto) 0.700 Neut % (Auto) 89.7 H Lymph % (Auto) 3.6 L [place] % (Auto) 5.9 Eos % (Auto) 0.0 Baso % (Auto) 0.1 Absolute Neuts (auto) 9.8 H Absolute Lymphs (auto) 0.40 L Nucleated RBC % 0 Sodium 136 Potassium 4.3 Chloride 105 Carbon Dioxide 18.3 L Anion Gap 13 BUN 35 H Creatinine 1.67 H Estim Creat Clear Calc 36.85 L Est GFR (MDRD) Non-Af 42 L BUN/Creatinine Ratio 20.9 H Glucose 115 H Hemoglobin A1c 6.6 Calcium 8.7 Magnesium 1.5 Total Bilirubin 0.98 AST 109 H ALT 35 Alkaline Phosphatase 54 Total Creatine Kinase 2755 H Total Protein 6.5 Albumin 3.6 Globulin 2.8 Albumin/Globulin Ratio 1.3 Lipase 14 Vitamin B12 483 TSH 0.420 Urine Color Yellow Urine Clarity Sl. Cloudy Urine pH 5.0 Ur Specific [place] 1.015 Urine Protein 100 H Urine Glucose (UA) Normal Urine Ketones Negative Urine Occult Blood 250 H Urine Nitrite Negative Urine Bilirubin Negative Urine Urobilinogen Normal Ur Leukocyte Esterase 500 H Urine RBC 10-25 SEEN Urine WBC 10-25 SEEN Ur Squamous Epith Cells 0 SEEN Urine Bacteria 3+ Fine Granular Casts 0-5 SEEN Urine Mucus 0 SEEN Radiography Diagnostic Testing: Clinical Impression(s) from Imaging Studies Brain CT 11/04/24 17:07 IMPRESSION: No acute intracranial findings. Age-appropriate senescent change. Mild inflammatory changes in the ethmoid and left sphenoid sinus. Reading Location: [facility] Cervical Spine CT 11/04/24 17:07 IMPRESSION: Status post dorsal fusion with instrumentation, C3 through C7. No acute fractures. Multilevel degenerative disc disease. Multilevel foraminal narrowing and facet arthropathy. Reading Location: [facility] Chest/Abdomen/Pelvis CT 11/04/24 17:07 IMPRESSION: 1. Parenchymal scarring in the lung bases. 2. Severe coronary artery calcifications. 3. Suspicion of cholelithiasis. 4. Left obstructive uropathy with moderate hydroureteronephrosis. Associated left perirenal fat stranding. 5. Bilateral nonobstructive nephrolithiasis. 6. Chronic prostatitis. 7. Right hydrocele. 8. Diverticulosis. 9. Bilateral fat containing inguinal hernias. 10. Other nonacute findings detailed above. Reading Location: [facility] Hip/Pelvis X-Ray 11/04/24 18:00 IMPRESSION: Severe osteoarthritis involving the right hip. Reading Location[facility] E[facility] Initial EKG: Comments: EKG #1 electronic my reading A-fib 103, however artifacts were noted. Sinus PACs first-degree AV block. Right bundle branch block. Repeat EKG at 1827, sinus arrhythmia with PVCs, first-degree AV block, right bundle branch block. Treatment and Re-Evaluation Narrative: Attending note: I have personally performed a face to face assessment of the patient and have reviewed the JACK note. I personally made/approved the management plan and take responsibility for the patient management. I performeda substantive portion of the visit including all aspects of the following. My cordova findings include: Brought in after being found on the ground daughter present. Last normal 18 hours ago. She was over patient's house due to complaints of abdominal discomfort with history of kidney stones he had a stent removed 9 days ago on the right side followed by Dr. Pham. He was confused when she saw her during my evaluation he is back to normal. Exam GCS 15 alert and orient x 3. Heart is regular negative logroll bilaterally no shortening or deformities. No chest wall tenderness. Heart is regular lungs clear abdomen soft. Patient had workup with image studies trauma scans head neck chest abdomen pelvis with right hip x-rays. 3 view right hip pelvis interpreted myself no appreciable fracture or dislocation noted. Trauma scans head neck chest and pelvis negative. However did note obstructive urolithiasis on the left side to stones largest 6 mm. Urine results positive for infection culture sent. Cover with Rocephin antibiotics. We discussed withhis urologist updated plan for stent placement tomorrow. Patient admitted to hospitalist service. On the ED developed a fever. Antibiotics was just starteda lactic acid and blood cultures were added as he meets SIRS criteria. Blood pressure remained stable. He was treated with Tylenol for his fever. Discharge Plan Dx/Rx/DC Orders Clinical Impression: Rhabdomyolysis, Calculus of left ureter, UTI (urinary tract infection), Dehydration, Fever Disposition Disposition: Acute Care [facility] Discharge Date/Time: 11/04/24 21:04 What to do if you have Problems For any increased pain, shortness of breath, bleeding, nausea or vomiting, chestpain, or any unexpected problems, contact your Primary Care Provider. Call [facility] ([phone]) or report to the closest Emergency Room. Call 911 if necessary. 11/04/242026 <Electronically signed by Debbie LAZAR> Cosigner Signature (if applicable): 11/04/24 2316 <Electronically signed by Bryant Reynoso> CC: Dr. Mitch Mcwilliams MD ~ Signed [facility] Work Phone: [phone] 538-816203-30-2025 Radiology Diagnostic study note [facility] Imaging Services [address] [place], [place] [id number] CT Chest, Abd, Pelvis WO [facility] MR#: [id number] Acct: [id number] Name: PARTHMARKYNhanAARON HELLEN Rep #: [id number] : 1950 M 74 From: Ngozi Garcia MD PCP: Dr. Mitch Mcwilliams MD Status: ADM I N Study:CT Chest, Abd, Pelvis WO Cont Date of E xam: 11/04/24 Exam# [id number] Ordering Dr: Debbie Alexander ADDENDUM by Dr. Abdias Garcia MD on 11/04/24 at 2349 Kidneys: A 5.3 x 4.9 cm cyst, right kidney. Impression 11. Right renal cyst. Reading Location: [facility] 11/04/24 2350 Date cc: Dr. Mitch Mcwilliams MD; CADY Baig ~* Signed PROCEDURE: CT CHEST, ABD, PELVIS WO CONT 11/04/2024 REASON FOR EXAM: RLQ ABDOMINAL PAIN, HX KIDNEY STONES, FALL TECHNIQUE: Chest, abdomen and pelvis CT without intravenous contrast. . Contiguous axial scans of mm slice thicknesses. Sagittal and coronal reconstruction images were obtained. One or more dose reduction techniques were used (e.g., automated exposure control, adjustment of mAand/or kv according to patient size, use of iterative reconstruction technique). COMPARISON: None. FINDINGS: CT CHEST: Lungs and Airways: The lungs are normally expanded and clear. Parenchymal scarring and or subsegmental atelectatic changes in the lower lobes. Pleura: No pleural effusion. No pneumothorax. Heart: Normal heart size. Pericardium: No pericardial thickening or effusion. Coronary arteries: Extensive coronary artery calcifications. Thoracic Aorta: No thoracic aortic aneurysm or dissection. Ascending aorta measures 4.1 cm in diameter. Pulmonary Vessels: Pulmonary artery measures 3.3 cm in diameter centrally. Mediastinum: No mediastinal hilar or axillary lymphadenopathy. Thyroid:No nodules.. Bones: Multilevel spondylosis and degenerative disc disease. CT ABDOMEN / PELVIS: Liver: Normal-size and attenuation. No masses. Gallbladder: A few small radiopaque densities in the neck, axial image 43. Spleen: Unremarkable. Pancreas: Unremarkable. Adrenals: Unremarkable. Kidneys: Left hydronephrosis. A 4 mm calculus in the distal left ureter, axial image 91. Several calcifications in the pelvic left ureter just proximal to the ureterovesical junction, largest measuring 6 mmon axial image 106.Multiple small intrarenal calculi, 2-3 mm on the left. At least 2 intrarenal calcifications in the right lower pole measuring7 mm, axial image 61, coronal image 90. Left perirenal fat stranding. Bladder: Unremarkable. Reproductive Organs: Small prostate gland with calcifications. Right hydrocele. Bowel: Diverticulosis without signs of diverticulitis. Appendix: Unremarkable. Lymph nodes: No pathologic adenopathy. Vasculature: Generalize aortoiliac atherosclerotic calcific disease. Peritoneum / Retroperitoneum: No free fluid. No free air. Anterior abdominal wall: Bilateral fat containing inguinal hernias. Bones: Multilevel spondylosis. Multilevel degenerative disc disease. CT/CT Chest, Abd, Pelvis WO Cont IMPRESSION: 1. Parenchymal scarring in the lung bases. 2. Severe coronary artery calcifications. 3. Suspicion of cholelithiasis. 4. Left obstructive uropathy with moderate hydroureteronephrosis. Associated left perirenal fat stranding. 5. Bilateral nonobstructive nephrolithiasis. 6. Chronic prostatitis. 7. Right hydrocele. 8. Diverticulosis. 9. Bilateral fat containing inguinal hernias. 10. Other nonacute findings detailed above. Reading Location: [facility] CC: Dr. Mitch Mcwilliams MD; CADY Baig ~ Visual Specialist: Signed [facility]03-30-2025 Radiology Diagnostic study note [facility] Imaging Services [address] [place] [address] [id number] CTA Chest W/WO Contrast MR#: [id number] Acct: [id number] Name: AARON CHAPA Rep #: [id number] : 1950 M 74 From: Ngozi Garcia MD PCP: Dr. Mitch Mcwilliams MD Status: ADM I N Study:CTA Chest W/WO Contrast Date of Exam: 11/04/24 Exam# [id number] Ordering Dr: Joel Berrios DO PROCEDURE: CTA CHEST W/WO CONTRAST 11/04/2024 REASON FOR EXAM: ELEVATED D-DIMER. TECHNIQUE: CTA axial imaging of the chest with intravenous contrast. Contiguous axial scans of 1.25 mm slice thicknesses. Sagittal and coronal reconstruction images were obtained. One or more dose reduction techniques were used (e.g., automated exposure control, adjustment of mAand/or kv according to patient size, use of iterative reconstruction technique). CONTRAST: Isovue 370 VOLUME: 100mL RADIATION DOSE SUMMARY: CTDlvol: 49.07 mGy DLP: 531.04 mGycm COMPARISON: Earlier study dated 11/04/2024. FINDINGS: Lymph nodes: Heart: No cardiac enlargement. Coronary artery calcifications. Thoracic Aorta: No aneurysm or dissection. Pulmonary Vessels: No intraluminal filling defects. No central pulmonary arterydilatation. Lungs and Airways: Parenchymal scarring and or subsegmental atelectasis in the lower lobes. Pleura: No pneumothorax. No pleural effusions. No abnormal thickening. Upper Abdomen: Large right renal cyst measuring 5.3 x 4.9 cm. Bones: Unchanged. CT/CTA Chest W/WO Contrast IMPRESSION: No evidence of pulmonary embolism. Large right renal cyst. Stable chronic changes in the bilateral lungs. Reading Location: [facility] CC: Dr. Joel Baldwin DO; Dr. Mitch Mcwilliams MD ~ Visual Specialist: Signed [facility]03-30-2025 Discharge summary [facility] Medical Records Department [address] [place] [address] Emergency Department Summary 11/04/24 MR#: [id number] Acct: [id number] Name: AARON CHAPA Rep #:[id number] : 1950 74 From: Debbie LAZAR PCP: Dr. Mitch Mcwilliams MD Status:ADM I N Location: [place] [address] HPI HPI - Fall History of Present Illness Chief Complaint: Fall Narrative Narrative: Patient presenting today with his family after his daughter found him lying on the floor this afternoon. She came to visit him yesterday, he lives at home by himself. He was complaining of left-sidedabdominal pain reporting that it feltlike he had a kidney stone again. He does have a history of kidney stones and just had a R sided stent removed over a week ago. His daughter got him into therecliner and set his walker near him as well as his phone. Today she was not able to get a hold of him and when she came to check on him around 3 PM and he was lying on the ground. He reports that he triedto get up last night but fellto the ground and was not able to get back up. He is not sure if he hit his head or lost consciousness, he is not on any blood thinners. He is alert and oriented x 4 but daughter reports that he seems somewhat confused. He reports both left and right-sided abdominal pain that has somewhat improved and right sided hip pain. He denies fevers, chills, chest pain, and vomiting. [facility] Medical History Loss of hearing Walker as ambulation aid High cholesterol History of stress test Wears glasses History of MRSA infection Non-smoker Physical debility Debility Closed head injury Frequent falls Sciatica Kidney stones Decreased hearing Hyperlipemia Hypertension Chronic back pain Arthritis Type 2 diabetes mellitus Home Medications ?Medication ?Instructions ?Recorded ?Last Taken ?Type atorvastatin 40 mg tablet 40 mg PO QHS CHOLESTEROL 09/2610/18/24 History lisinopril 5 mg tablet 5 mg PO DAILY blood pressure 04/25/19 10/18/24 History metformin 500 mg tablet 500 mg PO BID diabetes 02/0210/18/24 History acetaminophen 500 mg tablet 1,000 mg (2 x 500 mg) PO Q 6H PRN 12/03/21 10/18/24 Rx PRN Pain Score 1-3 #0 tabs gabapentin 100 mg capsule 100 mg PO TIDCM pain 30 days #90 12/03/21 10/18/24 Rx caps tamsulosin 0.4 mg capsule 0.4 mg PO DAILY@1730 bph 14 days 09/25/24 10/18/24 Rx #14 caps Allergy/AdvReac Type Severity Reaction Status Date / Time oxycodone HCl (From Percocet) Allergy Intermediate Other Verified 10/19/24 11:59 Family History Father Mental disorder Heart disease Mother Heart disease High cholesterol Surgical History History of kidney stones History of cervical spinal surgery Social History household members: none Smoking Status: Never smoker alcohol intake: never substance use type: does not use what type of physical activity do you participate in: walking frequency: daily ROS ROS ED Constitutional Constitutional ED: Denies chills or fever(s) Cardiovascular Cardiovascular: Denies chest pain Respiratory/Chest Respiratory/Chest: Denies dyspnea Gastrointestinal Gastrointestinal: Reports abdominal pain and nausea; Denies diarrhea or vomiting Genitourinary Genitourinary ED: Denies dysuria, hematuria or urinary urgency Musculoskeletal Musculoskeletal: Reports arthralgias; Denies neck pain Integumentary Denies Abrasions Neurologic Neurologic: Reports weakness; Denies paresthesias EXAM Physical Exam Const Vital Signs: 11/04/24 16:33 11/04/24 16:40 11/04/24 16:47 Temperature 99.7 F H Temperature Source Oral Pulse Rate 91 89 Respiratory Rate 18 16 Respiratory Effort Normal Respiratory Depth Normal Respiratory Pattern Normal Blood Pressure 119/72 Blood Pressure Mean 87 Pulse Ox 95 96 Oxygen Delivery Method Room Air Room Air Room Air Oxygen Flow Rate (L/min) 11/04/24 17:32 11/04/24 18:53 11/04/24 19:00 Temperature Temperature Source Pulse Rate 88 105 H Respiratory Rate 20 H 20 H Respiratory Effort Respiratory Depth Respiratory Pattern Blood Pressure 128/82 H 136/79 H 113/67 Blood Pressure Mean 97 98 82 Pulse Ox 92 96 Oxygen Delivery Method Nasal Cannula Room Air Oxygen Flow Rate (L/min) 2 11/04/24 20:00 11/04/24 20:20 11/04/24 20:22 Temperature 102.3 F H 102.3 F H Temperature Source Axillary Pulse Rate 99 94 88 Respiratory Rate 22 H 20 H 18 Respiratory Effort Respiratory Depth Respiratory Pattern Blood Pressure 119/65 121/65 H 121/65 H Blood Pressure Mean 83 83 83 Pulse Ox 95 96 96 Oxygen Delivery Method Room Air Room Air Oxygen Flow Rate (L/min) 0 Positive well nourished, well developed and no apparent distress General Appearance ED: well developed HEENT Reports normocephalic and head/scalp atraumatic Mouth ED: Yes moist mucous membranes normal Eyes PERRL and EOMs intact bilaterally Neck full ROM and supple Chest Wall inspection of chest normal Resp normal respiratory effort and clear to auscultation bilaterally Cardio regular rate and regular rhythm GI soft to palpation, non-tender, non-distended and no masses Back/Spine normal ROM and normal to inspection Extremity normal to inspection and full ROM Extremity Narrative: Positive logroll on the right with pain to palpation to the right greater trochanter. Right DP pulse audible with Doppler. Left DP pulse 2+. Neuro oriented x3, CN's II-XII intact bilaterally, moves all extremities, no focal motor deficits and no sensory deficits noted Sensorium / Orientation: awake and alert Psych mental status grossly normal and thought process normal Skin no rashes or lesions noted and no wounds Physical Exam Const Vital Signs: 11/04/24 16:33 11/04/24 16:40 11/04/24 16:47 Temperature 99.7 F H Temperature Source Oral Pulse Rate 91 89 Respiratory Rate 18 16 Respiratory Effort Normal Respiratory Depth Normal Respiratory Pattern Normal Blood Pressure 119/72 Blood Pressure Mean 87 Pulse Ox 95 96 Oxygen Delivery Method Room Air Room Air Room Air Oxygen Flow Rate (L/min) 11/04/24 17:32 11/04/24 18:53 11/04/24 19:00 Temperature Temperature Source Pulse Rate 88 105 H Respiratory Rate 20 H 20 H Respiratory Effort Respiratory Depth Respiratory Pattern Blood Pressure 128/82 H 136/79 H 113/67 Blood Pressure Mean 97 98 82 Pulse Ox 92 96 Oxygen Delivery Method Nasal Cannula Room Air Oxygen Flow Rate (L/min) 2 11/04/24 20:00 11/04/24 20:20 11/04/24 20:22 Temperature 102.3 F H 102.3 F H Temperature Source Axillary Pulse Rate 99 94 88 Respiratory Rate 22 H 20 H 18 Respiratory Effort Respiratory Depth Respiratory Pattern Blood Pressure 119/65 121/65 H 121/65 H Blood Pressure Mean 83 83 83 Pulse Ox 95 96 96 Oxygen Delivery Method Room Air Room Air Oxygen Flow Rate (L/min) 0 MDM MDM MDM Narrative Medical decision making narrative: Patient presenting today after being found on the ground by his daughter, she last checked on him yesterday and he reports that he fell last night and was unable to get up. He reports pain to his right hip and has had abdominal pain since yesterday with a history of kidney stones. Daughter reports he seems somewhat confused, he is alert and oriented x 4 for me. Labs were obtained, CBCshows an H&H of 11.3 and 33.5, this is improved from previous labs. His creatinine is 1.67, BUN 35, this is also around baseline. CK is elevated here at 2755 consistent with rhabdomyolysis. Patient given IV fluids. Right hip x-ray obtained to assess for fracture and is negative. CT scan of the chest, abdomen, and pelvis obtained to assess for infiltrate and kidney stones and shows 2 left- sided ureteral stones, there is a 4 mm stone and a [address] scan of the brain obtained to assess for intracranial bleed and is negative, cervical spine CT negative for fracture. UA is consistent with a UTI, his urinewas cultured and he was given a dose of Rocephin here. I did consult Dr. Pham, his urologist. He would like him to be n.p.o. so he can possibly place a stent tomorrow. I will speak with the hospitalist regarding admission. Patient admitted in stable condition. The nurse did inform me at 20:22that he developed a fever, he was ordered Tylenol. Initially he did not meet SIRS criteria but blood cultures were added on. Lab Data Attestation: I reviewed the patient's lab results. Labs: Laboratory Results - last 24 hr 11/04/24 11/04/24 17:20 18:50 WBC 11.0 RBC 3.46 L Hgb 11.3 L Hct 33.5 L MCV 96.8 H MCH 32.7 H MCHC 33.7 RDW Std Deviation 44.0 H RDW Coeff of Javid 12.7 Plt Count 221 MPV 9.5 Immature Gran % (Auto) 0.700 Neut % (Auto) 89.7 H Lymph % (Auto) 3.6 L [place] % (Auto) 5.9 Eos % (Auto) 0.0 Baso % (Auto) 0.1 Absolute Neuts (auto) 9.8 H Absolute Lymphs (auto) 0.40 L Nucleated RBC % 0 Sodium 136 Potassium 4.3 Chloride 105 Carbon Dioxide 18.3 L Anion Gap 13 BUN 35 H Creatinine 1.67 H Estim Creat Clear Calc 36.85 L Est GFR (MDRD) Non-Af 42 L BUN/Creatinine Ratio 20.9 H Glucose 115 H Hemoglobin A1c 6.6 Calcium 8.7 Magnesium 1.5 Total Bilirubin 0.98 AST 109 H ALT 35 Alkaline Phosphatase 54 Total Creatine Kinase 2755 H Total Protein 6.5 Albumin 3.6 Globulin 2.8 Albumin/Globulin Ratio 1.3 Lipase 14 Vitamin B12 483 TSH 0.420 Urine Color Yellow Urine Clarity Sl. Cloudy Urine pH 5.0 Ur Specific [place] 1.015 Urine Protein 100 H Urine Glucose (UA) Normal Urine Ketones Negative Urine Occult Blood 250 H Urine Nitrite Negative Urine Bilirubin Negative Urine Urobilinogen Normal Ur Leukocyte Esterase 500 H Urine RBC 10-25 SEEN Urine WBC 10-25 SEEN Ur Squamous Epith Cells 0 SEEN Urine Bacteria 3+ Fine Granular Casts 0-5 SEEN Urine Mucus 0 SEEN Radiography X-Ray: Read by ED Physician Diagnostic Testing: Clinical Impression(s) from Imaging Studies Brain CT 11/04/24 17:07 IMPRESSION: No acute intracranial findings. Age-appropriate senescent change. Mild inflammatory changes in the ethmoid and left sphenoid sinus. Reading Location: [employer] [facility] Cervical Spine CT 11/04/24 17:07 IMPRESSION: Status post dorsal fusion with instrumentation, C3 through C7. No acute fractures. Multilevel degenerative disc disease. Multilevel foraminal narrowing and facet arthropathy. Reading Location: [employer] Chest/Abdomen/Pelvis CT 11/04/24 17:07 IMPRESSION: 1. Parenchymal scarring in the lung bases. 2. Severe coronary artery calcifications. 3. Suspicion of cholelithiasis. 4. Left obstructive uropathy with moderate hydroureteronephrosis. Associated left perirenal fat stranding. 5. Bilateral nonobstructive nephrolithiasis. 6. Chronic prostatitis. 7. Right hydrocele. 8. Diverticulosis. 9. Bilateral fat containing inguinal hernias. 10. Other nonacute findings detailed above. Reading Location: [employer] Hip/Pelvis X-Ray 11/04/24 18:00 IMPRESSION: Severe osteoarthritis involving the right hip. Reading Location: [employer] [facility] Lab Data Labs: Laboratory Results - last 24 hr 11/04/24 11/04/24 17:20 18:50 WBC 11.0 RBC 3.46 L Hgb 11.3 L Hct 33.5 L MCV 96.8 H MCH 32.7 H MCHC 33.7 RDW Std Deviation 44.0 H RDW Coeff of Javid 12.7 Plt Count 221 MPV 9.5 Immature Gran % (Auto) 0.700 Neut % (Auto) 89.7 H Lymph % (Auto) 3.6 L [place] % (Auto) 5.9 Eos % (Auto) 0.0 Baso % (Auto) 0.1 Absolute Neuts (auto) 9.8 H Absolute Lymphs (auto) 0.40 L Nucleated RBC % 0 Sodium 136 Potassium 4.3 Chloride 105 Carbon Dioxide 18.3 L Anion Gap 13 BUN 35 H Creatinine 1.67 H Estim Creat Clear Calc 36.85 L Est GFR (MDRD) Non-Af 42 L BUN/Creatinine Ratio 20.9 H Glucose 115 H Hemoglobin A1c 6.6 Calcium 8.7 Magnesium 1.5 Total Bilirubin 0.98 AST 109 H ALT 35 Alkaline Phosphatase 54 Total Creatine Kinase 2755 H Total Protein 6.5 Albumin 3.6 Globulin 2.8 Albumin/Globulin Ratio 1.3 Lipase 14 Vitamin B12 483 TSH 0.420 Urine Color Yellow Urine Clarity Sl. Cloudy Urine pH 5.0 Ur Specific Peconic 1.015 Urine Protein 100 H Urine Glucose (UA) Normal Urine Ketones Negative Urine Occult Blood 250 H Urine Nitrite Negative Urine Bilirubin Negative Urine Urobilinogen Normal Ur Leukocyte Esterase 500 H Urine RBC 10-25 SEEN Urine WBC 10-25 SEEN Ur Squamous Epith Cells 0 SEEN Urine Bacteria 3+ Fine Granular Casts 0-5 SEEN Urine Mucus 0 SEEN Radiography Diagnostic Testing: Clinical Impression(s) from Imaging Studies Brain CT 11/04/24 17:07 IMPRESSION: No acute intracranial findings. Age-appropriate senescent change. Mild inflammatory changes in the ethmoid and left sphenoid sinus. Reading Location: [facility] Cervical Spine CT 11/04/24 17:07 IMPRESSION: Status post dorsal fusion with instrumentation, C3 through C7. No acute fractures. Multilevel degenerative disc disease. Multilevel foraminal narrowing and facet arthropathy. Reading Location: [facility] Chest/Abdomen/Pelvis CT 11/04/24 17:07 IMPRESSION: 1. Parenchymal scarring in the lung bases. 2. Severe coronary artery calcifications. 3. Suspicion of cholelithiasis. 4. Left obstructive uropathy with moderate hydroureteronephrosis. Associated left perirenal fat stranding. 5. Bilateral nonobstructive nephrolithiasis. 6. Chronic prostatitis. 7. Right hydrocele. 8. Diverticulosis. 9. Bilateral fat containing inguinal hernias. 10. Other nonacute findings detailed above. Reading Location: [facility] Hip/Pelvis X-Ray 11/04/24 18:00 IMPRESSION: Severe osteoarthritis involving the right hip. Reading Location: [facility] EKG Initial EKG: Comments: EKG #1 electronic my reading A-fib 103, however artifacts were noted. Sinus PACs first-degree AV block. Right bundle branch block. Repeat EKG at 1827, sinus arrhythmia with PVCs, first-degree AV block, right bundle branch block. Treatment and Re-Evaluation Narrative: Attending note: I have personally performed a face to face assessment of the patient and have reviewed the JACK note. I personally made/approved the management plan and take responsibility for the patient management. I performeda substantive portion of the visit including all aspects of the following. My cordova findings include: Brought in after being found on the ground daughter present. Last [id number] hours ago. She was over patient's house due to complaints of abdominal discomfort with history of kidney stones he had a stent removed 9 days ago on the right side followed by Dr. Pham. He was confused when she saw her during my evaluation he is back to normal. Exam GCS 15 alert and orient x 3. Heart is regular negative logroll bilaterally no shortening or deformities. No chest wall tenderness. Heart is regular lungs clear abdomen soft. Patient had workup with image studies trauma scans head neck chest abdomen pelvis with right hip x-rays. 3 view right hip pelvis interpreted myself no appreciable fracture or dislocation noted. Trauma scans head neck chest and pelvis negative. However did note obstructive urolithiasis on the left side to stones largest 6 mm. Urine results positive for infection culture sent. Cover with Rocephin antibiotics. We discussed withhis urologist updated plan for stent placement tomorrow. Patient admitted to hospitalist service. On the ED developed a fever. Antibiotics was just starteda lactic acid and blood cultures were added as he meets SIRS criteria. Blood pressure remained stable. He was treated with Tylenol for his fever. Discharge Plan Dx/Rx/DC Orders Clinical Impression: Rhabdomyolysis, Calculus of left ureter, UTI (urinary tract infection), Dehydration, Fever Disposition Disposition: Acute Care [facility] Discharge Date/Time: 11/04/24 21:04 What to do if you have Problems For any increased pain, shortness of breath, bleeding, nausea or vomiting, chestpain, or any unexpected problems, contact your Primary Care Provider. Call [facility] ([phone]) or report tothe closest Emergency Room. Call 911 if necessary. 11/04/242026 Cosigner Signature (if applicable): 11/04/242315 CC: Dr. Mitch Mcwilliams MD ~ Signed [facility]03-30-2025 Radiology Diagnostic study note [facility] Imaging Services [address] [place], [place] [address] HIP, UNI W/ Pelvis 2-3 Views MR#: [id number] Acct: [id number] Name: AARON CHAPA Rep #: [id number] : 1950 M 74 From: Ngozi Garcia MD PCP: Dr. Mitch Mcwilliams MD Status: REG E R Study:HIP, UNI W/ Pelvis 2-3 Views Date of Ex am: 11/04/24 Exam# [id number] Ordering Dr: Debbie Alexander PROCEDURE: HIP, UNI W/ PELVIS 2-3 VIEWS 11/04/2024 REASON FOR EXAM: R HIP PAIN, FALL TECHNIQUE: AP pelvis and two (2) views of the right hip. COMPARISON: CT dated 11/04/2024. FINDINGS: Bones: Severe narrowing of the right hip joint with sclerosis involving the acetabulum and femoral head. Mild degenerative cystic changes are also noted. No fractures are demonstrated. Hypertrophic spurring involving the lesser trochanter. Hypertrophic spurring at the superior lip of the acetabulum. Cystic changes bilaterally at the symphysis pubis. Joints: No dislocations or subluxations Soft tissues: Other: Atherosclerotic calcific disease. RAD/HIP, UNI W/ Pelvis 2-3 Views IMPRESSION: Severe osteoarthritis involving the right hip. Reading Location: [facility] CC: Dr. Mitch Mcwilliams MD; CADY Baig ~ Visual Specialist: Signed [facility]03-30-2025 Radiology Diagnostic study note [facility] Imaging Services [address] [place], [place] [address] CT Chest, Abd, Pelvis WO Cont MR#: [id number] Acct: [id number] Name: AARON CHAPA Rep #: [id number] : 1950 M 74 From: Ngozi Garcia MD PCP: Dr. Mitch Mcwilliams MD Status: REG E R Study:CT Chest, Abd, Pelvis WO Cont Date of E xam: 11/04/24 Exam# [id number] Ordering Dr: Debbie Alexander PROCEDURE: CT CHEST, ABD, PELVIS WO CONT 11/04/2024 REASON FOR EXAM: RLQ ABDOMINAL PAIN, HX KIDNEY STONES, FALL TECHNIQUE: Chest, abdomen and pelvis CT without intravenous contrast. . Contiguous axial scans of mm slice thicknesses. Sagittal and coronal reconstruction images were obtained. One or more dose reduction techniques were used (e.g., automated exposure control, adjustment of mAand/or kv according to patient size, use of iterative reconstruction technique). COMPARISON: None. FINDINGS: CT CHEST: Lungs and Airways: The lungs are normally expanded and clear. Parenchymal scarring and or subsegmental atelectatic changes in the lower lobes. Pleura: No pleural effusion. No pneumothorax. Heart: Normal heart size. Pericardium: No pericardial thickening or effusion. Coronary arteries: Extensive coronary artery calcifications. Thoracic Aorta: No thoracic aortic aneurysm or dissection. Ascending aorta measures 4.1 cm in diameter. Pulmonary Vessels: Pulmonary artery measures 3.3 cm in diameter centrally. Mediastinum: No mediastinal hilar or axillary lymphadenopathy. Thyroid:No nodules.. Bones: Multilevel spondylosis and degenerative disc disease. CT ABDOMEN / PELVIS: Liver: Normal-size and attenuation. No masses. Gallbladder: A few small radiopaque densities in the neck, axial image 43. Spleen: Unremarkable. Pancreas: Unremarkable. Adrenals: Unremarkable. Kidneys: Left hydronephrosis. A 4 mm calculus in the distal left ureter, axial image 91. Several calcifications in the pelvic left ureter just proximal to the ureterovesical junction, largest measuring 6 mmon axial image 106.Multiple small intrarenal calculi, 2-3 mm on the left. At least 2 intrarenal calcifications in the right lower pole measuring7 mm, axial image 61, coronal image 90. Left perirenal fat stranding. Bladder: Unremarkable. Reproductive Organs: Small prostate gland with calcifications. Right hydrocele. Bowel: Diverticulosis without signs of diverticulitis. Appendix: Unremarkable. Lymph nodes: No pathologic adenopathy. Vasculature: Generalize aortoiliac atherosclerotic calcific disease. Peritoneum / Retroperitoneum: No free fluid. No free air. Anterior abdominal wall: Bilateral fat containing inguinal hernias. Bones: Multilevel spondylosis. Multilevel degenerative disc disease. CT/CT Chest, Abd, Pelvis WO [facility] IMPRESSION: 1. Parenchymal scarring in the lung bases. 2. Severe coronary artery calcifications. 3. Suspicion of cholelithiasis. 4. Left obstructive uropathy with moderate hydroureteronephrosis. Associated left perirenal fat stranding. 5. Bilateral nonobstructive nephrolithiasis. 6. Chronic prostatitis. 7. Right hydrocele. 8. Diverticulosis. 9. Bilateral fat containing inguinal hernias. 10. Other nonacute findings detailed above. Reading Location: [facility] CC: Dr. Mitch Mcwilliams MD; CADY Baig ~ Visual Specialist: Signed [facility]03-30-2025 Radiology Diagnostic study note [facility] Imaging Services [address] [place] [address] Spine Cervical without Contras MR#: [id number] Acct: [id number] Name: AARON CHAPA Rep #: [id number] : 1950 M 74 From: Ngozi Garcia MD PCP: Dr. Mitch Mcwilliams MD Status: REG E R Study:Spine Cervical without Contras Date of Exam: 11/04/24 Exam# [id number] Ordering Dr: Debbie Alexander PROCEDURE: SPINE CERVICAL WITHOUT CONTRAS 11/04/2024 REASON FOR EXAM: FALL TECHNIQUE: Contiguous axial scans of 1.25 mm slice thicknesses without intravenous contrast. Sagittal and coronal reconstruction images were also obtained. One or more dose reduction techniques were used (e.g., Automated exposure control, adjustment of the mA and/or kV according to patient size, use of iterative reconstruction technique). RADIATION DOSE SUMMARY: CTDlvol: 31.80 mGy DLP: 553.53 mGycm COMPARISON: CT cervical dated 07/16/2019. MRI cervical dated 07/19/2024. FINDINGS: Vertebrae: C3 through C7 dorsal fusion with surgical instrumentation. No fractures. C1-C2: Atlantoaxial articulation is maintained. Degenerative changes. Alignment: Straightening of the cervical lordosis most likely due to previous dorsal fusion Discs: Multilevel disc space narrowing. Foramens: Multilevel bilateral foraminal narrowing. Facets: Multilevel arthropathy. Soft tissues: Prevertebral soft tissues are normal. CT/Spine Cervical without Contras IMPRESSION: Status post dorsal fusion with instrumentation, C3 through C7. No acute fractures. Multilevel degenerative disc disease. Multilevel foraminal narrowing and facet arthropathy. Reading Location: [facility] CC: Dr. Mitch Mcwilliams MD; CADY Baig ~ Visual Specialist: Signed [facility]03-30-2025 Radiology Diagnostic study note [facility] Imaging Services [address] [place] [address] Brain/Head without Contrast MR#: [id number] Acct: [id number] Name: AARON CHAPA Rep #: [id number] : 1950 M 74 From: Ngozi Garcia MD PCP: Dr. Mitch Mcwilliams MD Status: REG E R Study:Brain/Head without Contrast Date of Exa m: 11/04/24 Exam# [id number] Ordering Dr: Debbie Alexander PROCEDURE: BRAIN/HEAD WITHOUT CONTRAST 11/04/2024 REASON FOR EXAM: FALL, HEAD INJURY TECHNIQUE: Contiguous axial scans of 3.75 mm slice thicknesses with sagittal and coronal reconstruction images. One or more dose reduction techniques were utilized (e.g., automated exposure control, adjustment of mA and/or kv according to patient size, use of iterative reconstruction technique). RADIATION DOSE SUMMARY: CTDlvol: 76.79 mGy DLP: 1366.51 mGycm COMPARISON: MRI brain dated 07/19/2024 FINDINGS: Cerebrum: No intraparenchymal hemorrhage. No abnormal areas of encephalomalacia.No mass effect or midline shift. Nava-white matter differentiation is normal. Ventricles and cisterns: Appropriate size for patient's age. Age-appropriate cerebral cortical atrophy. Extra-axial fluid: Unremarkable. Posterior fossa: Unremarkable cerebellum. No abnormalities involving the brainstem. Paranasal sinuses: Mucoperiosteal thickening in the ethmoids and left maxillary sinus. Vasculature: Mild atherosclerotic calcific disease. Mastoid air cells: Normal. Calvarium: Unremarkable. Soft tissues: Unremarkable. CT/Brain/Head without Contrast IMPRESSION: No acute intracranial findings. Age-appropriate senescent change. Mild inflammatory changes in the ethmoid and left sphenoid sinus. Reading Location: [facility] CC: Dr. Mitch Mcwilliams MD; CADY Baig ~ Visual Specialist: Signed [facility]03-14-2025 Consult note [facility] Medical Records Department [address] [place] [address] Anesthesia Postop Eval II 10/19/24 1520 MR#: [id number] Acct: [id number] Name: AARON CHAPA Rep #:[id number] : 1950 74 From: Santos Mahmood MD PCP: Dr. 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.CSIR Spontaneous unlabored Yes 10/19/24 14:31 PHARMACY DELIVERY DRIVER.CSIR respirations Mental status nausea No 10/19/24 14:31 PHARMACY DELIVERY DRIVER.CSIR Vomiting No 10/19/24 14:31 PHARMACY DELIVERY DRIVER.CSIR Anesthesia Postop Eval I: Fluid Summary Crystalloid volume administer 1,000 10/19/24 14:31 PHARMACY DELIVERY DRIVER.CSIR (ml) Colloids volume administered ( ml) Blood Product volume administered (ml) Total IV fluid infused 1,000 10/19/24 14:31 PHARMACY DELIVERY DRIVER.CSIR Anesthesia Postop Eval I: Summary Notes Anesthesia Complication No 10/19/24 14:31 PHARMACY DELIVERY DRIVER.CSIR Anesthesia Complication Comment: Post-operative progress note Anesthesia: Postop Eval II Evaluation Mental status: Awake Pain Level: 0 nausea: No Vomiting: No 10/19/24 1520 > Date _ Santos Spencer Signature: Date CC: ~ Signed [facility]03-14-2025 Discharge summary [facility] Medical Records Department [address] [place] [address] Instructions for Home/Discharge Instructions 10/19/24 1355 MR#: [id number] Acct: [id number] Name: AARON CHAPA Rep #:[id number] : 1950 74 From: Jose Manuel Pham MD PCP: Dr. Mitch Mcwilliams MD Status:REG S DC Discharge Instructions Diet Discharge Diet: No restrictions DC O2, CPAP, BIPAP needs Home O2 Discharge instructions: No Dressing / Incision Discharge Activity: Return to Normal Activity and May Not Drive (while taking narcotic pain medications.) Dressing / Incision Call your doctor if you observe: Fever of 101 or Higher Follow Up Care Please Follow Up With: Jose Manuel Pham MD When: Call [phone] for an appointment Test Results: Test results from this visit will be discussed in further detail at your follow- up appointment, if applicable. Discharge Plan Admission Primary Reason for Your Visit: left kidney stone Attending Provider: Jose Manuel Pham Primary Care Provider: Mitch Mcwilliams Chi Instructions Print Language: Puerto Rican Discharge Orders/Prescriptions Prescriptions: Continued atorvastatin 40 MG tablet 40 mg PO QHS lisinopril 5 MG tablet 5 mg PO DAILY metformin 500 MG tablet 500 mg PO BID acetaminophen 500 mg Tablet 1,000 mg PO Q6H PRN PRN (Reason: Pain Score 1-3) Qty: 0 0RF gabapentin 100 mg Capsule 100 mg PO TIDCM 30 Days Qty: 90 0RF tamsulosin 0.4 mg Capsule 0.4 mg PO DAILY@1730 14 Days Qty: 14 0RF Other Ambulatory Orders: Abdomen Single View (Routine) Timeframe: 20241019 Facility: [facility] - Location: [facility] Ordered By: Dr. Jose Manuel Pham Referrals / Follow Up: Jose Manuel Pham MD [Med Staff - Active Staff] - Mitch Mcwilliams Chi, MD [Primary Care Provider] - Disposition Disposition (needs filled in before D/C Order can be placed): Home, Self Care 10/19/24 1355Jose Manuel Pham MD CC: Dr. Mitch Mcwilliams MD ~ Signed [facility]03-14-2025 Discharge summary Author Jose Manuel Pham [facility] Note Date/Time October 19, 2024 4:0 0pm [facility] Medical Records Department [address] [place] [address] Instructions for Home/Discharge Instructions 10/19/24 1355 MR#: [id number] Acct: [id number] Name: AARON CHAPA Rep #:[id number] : 1950 74 From: Jose Manuel Pham MD PCP: Dr. Mitch Mcwilliams MD Status:REG S DC Discharge Instructions Diet Discharge Diet: No restrictions DC O2, CPAP, BIPAP needs Home O2 Discharge instructions: No Dressing / Incision Discharge Activity: Return to Normal Activity and May Not Drive (while taking narcotic pain medications.) Dressing / Incision Call your doctor if you observe: Fever of 101 or Higher Follow Up Care Please Follow Up With: Jose Manuel Pham MD When: Call [phone] for an appointment Test Results: Test results from this visit will be discussed in further detail at your follow- up appointment, if applicable. Discharge Plan Admission Primary Reason for Your Visit: left kidney stone Attending Provider: Jose Manuel Pham Primary Care Provider: Mitch Mcwilliams Chi Instructions Print Language: [place] Rican Discharge Orders/Prescriptions Prescriptions: Continued atorvastatin 40 MG tablet 40 mg PO QHS lisinopril 5 MG tablet 5 mg PO DAILY metformin 500 MG tablet 500 mg PO BID acetaminophen 500 mg Tablet 1,000 mg PO Q6H PRN PRN (Reason: Pain Score 1-3) Qty: 0 0RF gabapentin 100 mg Capsule 100 mg PO TIDCM 30 Days Qty: 90 0RF tamsulosin 0.4 mg Capsule 0.4 mg PO DAILY@1730 14 Days Qty: 14 0RF Other Ambulatory Orders: Abdomen Single View (Routine) Timeframe: 20241019 Facility: [facility] - Location: [facility] Ordered By: Dr. Jose Manuel Pham Referrals / Follow Up: Jose Manuel Pham MD [Med Staff - Active Staff] - Mitch Mcwilliams Chi, MD [Primary Care Provider] - Disposition Disposition (needs filled in before D/C Order can be placed): Home, Self Care 10/19/24 1355<Electronically signed by Jose Manuel Pham MD>Jose Manuel Pham MD CC: Dr. Mitch Mcwilliams MD ~ Signed [facility] Work Phone: 1(595) 855-689603-14-2025 History and physical note Author Jose Manuel Pham [facility] Note Date/Time October 19, 2024 1:5 5pm [facility] Medical Records Department [address] [place] [address] History & Physical Exam 10/19/24 1354 MR#: [id number] Acct: [id number] Name: AARON CHAPA Rep #:[id number] : 1950 74 From: Jose Manuel Pham MD PCP: Dr. Mitch Mcwilliams MD Status:REG S PR Location: [place] [address] HPI - General General Date of Service: 10/19/24 Chief Complaint: Left kidney stone HPI Narrative AARON CHAPA, is a 74 M who presents for treatment with left kidney stone with shockwave lithotripsy currently has a stent in place [facility] Medical History Loss of hearing Walker as ambulation aid High cholesterol History of stress test Wears glasses History of MRSA infection Non-smoker Physical debility Debility Closed head injury Frequent falls Sciatica Kidney stones Decreased hearing Hyperlipemia Hypertension Chronic back pain Arthritis Type 2 diabetes mellitus Home Medications ?Medication ?Instructions ?Recorded ?Last Taken ?Type atorvastatin 40 mg tablet 40 mg PO QHS CHOLESTEROL 09/2610/18/24 History lisinopril 5 mg tablet 5 mg PO DAILY blood pressure 04/25/19 10/18/24 History metformin 500 mg tablet 500 mg PO BID diabetes 02/0210/18/24 History acetaminophen 500 mg tablet 1,000 mg (2 x 500 mg) PO Q 6H PRN 12/03/21 10/18/24 Rx PRN Pain Score 1-3 #0 tabs gabapentin 100 mg capsule 100 mg PO TIDCM 30 days #90 caps 12/03/21 10/18/24 Rx tamsulosin 0.4 mg capsule 0.4 mg PO DAILY@1730 14 days #14 09/25/24 10/18/24 Rx caps Allergy/AdvReac Type Severity Reaction Status Date / Time oxycodone HCl (From Percocet) Allergy Intermediate Other Verified 10/19/24 11:59 Family History Father Mental disorder Heart disease Mother Heart disease High cholesterol Surgical History History of kidney stones History of cervical spinal surgery Social History household members: none Smoking Status: Never smoker alcohol intake: never substance use type: does not use what type of physical activity do you participate in: walking frequency: daily Vital Signs Vital Signs Vital Signs: 10/19/24 11:51 10/19/24 11:51 Temperature 98.2 F Temperature Source Temporal Pulse Rate 83 Respiratory Rate 16 Respiratory Pattern Normal Blood Pressure 151/70 H Blood Pressure Mean 97 Blood Pressure Source Monitor Blood Pressure Position Semi-Fowlers Blood Pressure Location Left Arm Pulse Ox 98 Oxygen Delivery Method Room Air Weight Weight: 95.3 kg Body Mass Index (BMI) 31.0 Results Imaging Radiology Impression KUB X-Ray 10/19/24 11:05 IMPRESSION: 1. Interval placement of left nephroureteral stent with likely migration of the previous 12 mm left ureteral calculus into the bladder. 2. Additional description as above. Reading Location: [id number] 10/19/24 1355 <Electronically signed by Jose Manuel Pham MD> Cosigner Signature (if applicable): CC: Dr. Jose Manuel Pham MD; Dr. Mitch Mcwilliams MD~ Signed [facility] Work Phone: 1(853) 538-331303-14-2025 Consult note [facility] Medical Records Department [address] [place] [address] Anesthesia Postop Eval I 10/19/24 143 MR#: [id number] Acct: [id number] Name: AARON CHAPA Rep #:[id number] : 1950 74 From: Leni Fraga PCP: Dr. Mitch Mcwilliams MD Status:REG S DC Y Race: C Location: [place] [address] Anesthesia: Postop Eval I Current Vital Signs Temperature: 97.4 F Pulse Rate: 87 Blood Pressure: 162/92 Respiratory Rate: 20 Pulse Ox: 95 Assessment Airway patent: Yes Spontaneous unlabored respirations: Yes nausea: No Vomiting: No Anesthesia Complication: No Fluid Hydration Crystalloid volume administer (ml): 1,000 Total IV fluid infused: 1,000 Progress Note Anesthesia document: Postop Eval 1 completed: Yes 10/19/24 1432 a> Date _ Leni Ybarraignjc Signature: Date CC: ~ Signed [facility]03-14-2025 Procedure note [facility] Medical Records Department [address] [place] [address] Operative Report 10/19/24 135 MR#: [id number] Acct: [id number] Name: AARON CHAPA Rep #:[id number] : 1950 74 From: Jose Manuel Pham MD PCP: Dr. Mitch Mcwilliams MD Status:REG S DC Location: [place] [address] Operative Report (Standard) Operative Information Date of Procedure: 10/19/24 Pre-Operative Diagnosis: Left kidney stone Post-Operative Diagnosis: The same Surgery/Procedure Performed: Left extracorporeal shockwave lithotripsy cook helper dessert: No Type of Anesthesia: General RN Documented Start/Stop Times: Operation Date: 10/19/24 13:15 Case Time Into Pre-Op 10/19/24 11:32 Out of Pre-Op 10/19/24 13:17 Anesthesia Start 10/19/24 13:20 Into Room 10/19/24 13:20 Procedure Start 10/19/24 13:36 Procedure End 10/19/24 14:22 Procedure Start Time: 13:36 Procedure Stop Time: 14:24 Select all DRAINS/GRAFTS/IMPLANTS that apply: Drains Drain details: left stent in place Estimated Blood Loss: 0 Specimen collected: No Description of surgery: Patient presents to the hospital for treatment of a kidney stone with shockwave lithotripsy. In thepreoperative area and x-ray was done to confirm the location of the stone. The x-ray was reviewed and the stone location was reviewed. In the preoperative setting I spoke with the patient regarding the treatment of the stone how the treatment would be conducted and the expectationsafter surgery. The patient understands there is a risk of bleeding and infection. Also discussed the very rare risk of hematoma or damage to the kidney. We also discussed the risk that the shockwave machine will fail to break the stone adequately and that the patient may need other surgical procedures. I also discussed the possibility that the patient may need a stent after the procedure. After reviewing the procedure with the patient, the patient is signed the consent form all the patient's questions were addressed and was taken back to the operating room for treatment of a kidney stone. Patient was taken back to the operating room, the patient was identified by the nursing staff, I identified the side of the treatment and the patient side of treatment had been marked by my initials.The patient underwent general anesthetic and was placed supine on the lithotripter table. I then used fluoroscopy to identify the stone on the left side next to stent in the proximalureter. I then positioned the patient under the lithotripter and I used triangulation technique to identify the location of the stone and then I made sure that the stone was engaged in the F2 focal point of F2 Donier lithoprior machine. Once the patient was positioned appropriately and the stone was identified and placed in the F2 focal point of the lithotripter machine I then proceeded with shockwave lithotripsy.In the beginning the shockwave was delivered at a rate of 90 shocks per minute, anesthesia monitored the EKG for any ectopy. The power was slowly increased to 5 kV and subsequently at the 7 kV. I then proceeded with the treatment with shock wave therapy and around during the treatment to make sure the stone stayed in the F2 focal point during the entire treatment and after 3000 shockwaves were delivered to the stone underfluoroscopic guidance the treatment was completed. The patient was given in structions to call the office to make an a follow-up appointment with an xray to evaluate the success of the treatment, pateint understands that its possible the stones may need another procedure.At this point the patient's anesthetic wasreversed patient was extubated and taken back to the PACU in stable condition. Surgical Findings: stone in proximal ureter Complications Complications: No Admit VTE Documentation VTE Present on Admission: No VTE Mechan Device Prophylaxis: SCD's VTE Pharm Prophylaxis ordered?: No 10/19/24 8107 Cosigner Signature (if applicable): CC: Dr. Jose Manuel Pham MD; Dr. Mitch Mcwilliams MD~ Signed [facility]03-14-2025 History and physical note [facility] Medical Records Department [address] [place] [id number] History & Physical Exam 10/19/24 1354 MR#: [id number] Acct: [id number] Name: AARON CHAPA Rep #:[id number] : 1950 74 From: Jose Manuel Pham MD PCP: Dr. Mitch Mcwilliams MD Status:REG S DC Location: [address] HPI - General General Date of Service: 10/19/24 Chief Complaint: Left kidney stone HPI Narrative AARON CHAPA, is a 74 M who presents for treatment with left kidney stone with shockwave lithotripsy currently has a stent in place [facility] Medical History Loss of hearing Walker as ambulation aid High cholesterol History of stress test Wears glasses History of MRSA infection Non-smoker Physical debility Debility Closed head injury Frequent falls Sciatica Kidney stones Decreased hearing Hyperlipemia Hypertension Chronic back pain Arthritis Type 2 diabetes mellitus Home Medications ?Medication ?Instructions ?Recorded ?Last Taken ?Type atorvastatin 40 mg tablet 40 mg PO QHS CHOLESTEROL 09/2610/18/24 History lisinopril 5 mg tablet 5 mg PO DAILY blood pressure 04/25/19 10/18/24 History metformin 500 mg tablet 500 mg PO BID diabetes 02/0210/18/24 History acetaminophen 500 mg tablet 1,000 mg (2 x 500 mg) PO Q 6H PRN 12/03/21 10/18/24 Rx PRN Pain Score 1-3 #0 tabs gabapentin 100 mg capsule 100 mg PO TIDCM 30 days #90 caps 12/03/21 10/18/24 Rx tamsulosin 0.4 mg capsule 0.4 mg PO DAILY@1730 14 days #14 09/25/24 10/18/24 Rx caps Allergy/AdvReac Type Severity Reaction Status Date / Time oxycodone HCl (From Percocet) Allergy Intermediate Other Verified 10/19/24 11:59 Family History Father Mental disorder Heart disease Mother Heart disease High cholesterol Surgical History History of kidney stones History of cervical spinal surgery Social History household members: none Smoking Status: Never smoker alcohol intake: never substance use type: does not use what type of physical activity do you participate in: walking frequency: daily Vital Signs Vital Signs Vital Signs: 10/19/24 11:51 10/19/24 11:51 Temperature 98.2 F Temperature Source Temporal Pulse Rate 83 Respiratory Rate 16 Respiratory Pattern Normal Blood Pressure 151/70 H Blood Pressure Mean 97 Blood Pressure Source Monitor Blood Pressure Position Semi-Fowlers Blood Pressure Location Left Arm Pulse Ox 98 Oxygen Delivery Method Room Air Weight Weight: 95.3 kg Body Mass Index (BMI) 31.0 Results Imaging Radiology Impression KUB X-Ray 10/19/24 11:05 IMPRESSION: 1. Interval placement of left nephroureteral stent with likely migration of the previous 12 mm leftureteral calculus into the bladder. 2. Additional description as above. Reading Location: [id number] 10/19/24 1355 Cosigner Signature (if applicable): CC: Dr. Jose Manuel Pham MD; Dr. Mitch Mcwilliams MD~ Signed [facility]03-14-2025 [facility] Consult note Author Santos Mahmood [facility] Note Date/Time October 19, 2024 11: 22am [facility] Medical Records Department [address] [facility] [place] [address] Pre-Anesthesia Evaluation 10/19/24 1122 MR#: [id number] Acct: [id number] Name: AARON CHAPA Rep #:[id number] : 1950 74 From: Santos Mahmood MD PCP: Dr. Mitch Mcwilliams MD Status:REG S DC Y Race: C Location: [place] [address] ASA Classification* ASA Classification ASA Classification: 2 Assessment & Plan Anesthesia* Anesthesia Assessment Anesthesia Assessment: Discussed sedation and/or anesthesia options, risks, benefits, and alternatives with patient/parents/legal guardian/POA. Questions invited. The patient/parents/legal guardian/POA seems to understand and agrees to proceedwith anesthesia plan. Reviewed the physical assessment, medical history, allergy history and patient home medications list prior to surgery/procedure/anesthetic and documented any changes. Performed airway and anesthesia risk assessments. Anesthesia Type Anesthesia Type: General Anesthesia Focused Assessment* Airway Assessment Mouth opens: >3 cm Mallampati Score: II Focused Labs Anesthesia Preop lab: CBC WBC 8.9 K/mm3 (4.4-11.0) 09/24/24 10:04 09/24/24 RBC 3.27 M/mm3 (4.6-6.2) L 09/24/24 10:09/24/24 Hgb 10.5 g/dL (13.0-16.5) L 09/24/24 10:04 5 Hct 32.4 % (40-54) L 09/24/24 10:04 09/24/24 Plt Count 208 K/mm3 (150-450) 09/24/24 10:04 09/24/24 CHEMISTRY Potassium 4.5 mmol/L (3.3-5.1) 10/04/24 15:06 10/04/24 Sodium 140 mmol/L (133-145) 10/04/24 15:06 10/04/24 BUN 31 mg/dL (4-19) H 10/04/24 15:06 10/04/24 Creatinine 1.4 mg/dL (0.8-1.3) H 10/04/24 15:06 10/04/24 Glucose 138 mg/dL (70-99) H 10/04/24 15:06 10/04/24 POC Glucose 224 mg/dL (74-106) H 09/25/24 11:17 09/25/24 TSH 1.280 uIU/mL (0.358-3.740) 06/13/24 09:49 11/0 01/29 COAG Pre-Assessment Diagnosis/Proposed Procedure Planned Operative Procedure(s): ESWL Anesthesia History 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 When Was Last Pacemaker Check QUESTION #4 FULL TEXT: You/Your Family Experience fever (hyperthermia) with Anesthesia Last Oral Intake Last Oral intake: Last Oral Intake NPO since Meds taken in AM with sips of water? Meds patient instructed to take am of surgery PONV PONV - park maintainer: PONV - park maintainer Female No 10/11/24 08:31 HX of Motion Sickness No 10/11/24 08:31 HX of N/V After Surgery No 10/11/24 08:31 Non-Smoker Yes 10/11/24 08:31 Duration of Surgery greater Yes 10/11/24 08:31 than 60 minutes Number of Risk Factors 2 10/11/24 08:31 PONV Score Moderate Risk 10/11/24 08:31 Height & Weight Height & Weight: Anesthesia: Height & Weight Height 5 ft 9 in 09/24/24 10:25 Respiratory Assessment Respiratory Assessment - park maintainer: Respiratory Tract Infection Hx - park maintainer Hx Respiratory Tract Infection No 10/11/24 08:31 STOP Sleep Apnea STOP Sleep Apnea - park maintainer: STOP Sleep Apnea - park maintainer Hx Hypertension Yes: ON MEDS 10/11/24 08:31 Hx Sleep Apnea No 10/11/24 08:31 CPAP No 12/01/21 16:40 BIPAP No 12/01/21 14:58 Do you snore loudly (louder No 10/11/24 08:31 than talking or can be heard Do you often feel tired/ No 10/11/24 08:31 fatigued/ sleepy during daytime? Has anyone observed you stop No 10/11/24 08:31 breathing during sleep? STOP Results Negative 10/11/24 08:31 QUESTION #5 FULL TEXT : Do you snore loudly (louder than talking or can be heard through closed doors)? Tobacco Use History Tobacco Use History - park maintainer: Tobacco Use History - park maintainer Tobacco Use Smoking Status Never smoker 10/11/24 08:31 Hx Tobacco Use No 10/11/24 08:31 Years Smoking Packs Smoked per Day Smoking Cessation Date was within the last 15 years Hx Smoking Cessation Date Hx Smoking Cessation Counseling Hematologic Medial History Hematologic Hx - park maintainer: Hematologic Medical Hx - deck cadet Hx of Blood Transfusion No 10/11/24 08:31 Hx of Transfusion in last 3 No 10/11/24 08:31 Months Date of Last Transfusion (if within last 3 months) Ever experience any problems No 10/11/24 08:31 with transfusion(s)? Specify any problems Hx of Preganancy in last 3 N/A 10/11/24 08:31 Months Nurse Filling Out Transfusion JZOLLINGE 10/11/24 08:31 & Questions: Date: 10/11/24 10/11/24 08:31 Time: 08:35 10/11/24 08:31 Patient unable to answer at this time (ie. confused, unrespo /Reproduction History /Reproductive History - park maintainer: /Reproductive Hx- park maintainer Hx Now No 10/11/24 08:31 Gestational Age (in weeks): EDC: Hx Hx Para Hx Section SAB No 10/11/24 08:31 Active Medications Active Medications: Current Medications Generic Name Dose Route Start Last Admin Trade Name Freq PRN Reason Stop Dose Admin Cefazolin Sodium 2 gm/ N/A 20 mls @ 400 mls/hr 10/19/24 13:15 IV 10/19/24 13:17 PREOP ONE [facility] Medical History Loss of hearing Walker as ambulation aid High cholesterol History of stress test Wears glasses History of MRSA infection Non-smoker Physical debility Debility Closed head injury Frequent falls Sciatica Kidney stones Decreased hearing Hyperlipemia Hypertension Chronic back pain Arthritis Type 2 diabetes mellitus Home Medications ?Medication ?Instructions ?Recorded ?Last Taken ?Type atorvastatin 40 mg tablet 40 mg PO QHS CHOLESTEROL 09/2611/21/21 History lisinopril 5 mg tablet 5 mg PO DAILY blood pressure 04/25/19 11/22/21 History metformin 500 mg tablet 500 mg PO BID diabetes 02/0211/22/21 History acetaminophen 500 mg tablet 1,000 mg (2 x 500 mg) PO Q 6H PRN 12/03/21 Unknown Rx PRN Pain Score 1-3 #0 tabs gabapentin 100 mg capsule 100 mg PO TIDCM 30 days #90 caps 12/03/21 Unknown Rx tamsulosin 0.4 mg capsule 0.4 mg PO DAILY@1730 14 days #14 09/25/24 Unknown Rx caps Allergy/AdvReac Type Severity Reaction Status Date / Time oxycodone HCl (From Percocet) Allergy Intermediate Other Verified 10/11/24 08:19 Family History Father Mental disorder Heart disease Mother Heart disease High cholesterol Surgical History History of kidney stones History of cervical spinal surgery Social History household members: none Smoking Status: Never smoker alcohol intake: never substance use type: does not use what type of physical activity do you participate in: walking frequency: daily Review of Systems (Anesthesia) ROS Narrative System reviewed and no additional complaints, except as documented. 10/19/24 1122 <Electronically signed by Santos Mahmood MD > Date _ Santos Mahmood MD Cosigner Signature: Date CC: ~ Signed [facility] Work Phone: 1(405) 612-840703-14-2025 Radiology Diagnostic study note [facility] Imaging Services [address] [place] [id number] Abdomen Single View MR#: [id number] Acct: [id number] Name: AARON CHAPA Rep #: [id number] : 1950 M 74 From: Kelsey Augustin MD PCP: Dr. Mitch Mcwilliams MD Status: REG S DC Study:Abdomen Single View Date of Exam: 10/19/24 Exam# [id number] Ordering Dr: Teresa Pham MD PROCEDURE: ABDOMEN SINGLE VIEW REASON FOR EXAM: PRE OP TECHNIQUE: Single view abdomen. COMPARISON: 09/23/2024 FINDINGS: No visible bowel dilatation. Interval placement of a left nephroureteral stent. Suspect that the previous 12mm left ureteral calculus has migrated distally, now projecting over the pelvis. Redemonstrated small calculus projecting over the right renal silhouette. The punctate intrarenal calculus on the left is not visible. Grossly similar presumed pelvicphleboliths. Lumbar spondylosis and trace lumbar levoscoliosis. Severe degenerative changes of the right hip with near-complete loss of joint space. More mild degenerative changes of the left hip. RAD/Abdomen Single View IMPRESSION: 1. Interval placement of left nephroureteral stent with likely migration of the previous 12 mm leftureteral calculus into the bladder. 2. Additional description as above. Reading Location: [id number] CC: Dr. Jose Manuel Pham MD; Dr. Mitch Mcwilliams MD ~ Visual Specialist: Signed [facility]03-14-2025 Consult note [facility] Medical Records Department [address] [place] [address] Pre-Anesthesia Evaluation 10/19/24 1122 MR#: [id number] Acct: [id number] Name: AARON CHAPA Rep #:[id number] : 1950 74 From: Santos Mahmood MD PCP: Dr. Mitch Mcwilliams MD Status:REG S DC Y Race: C Location: [place] [address] ASA Classification* ASA Classification ASA Classification: 2 Assessment & Plan Anesthesia* Anesthesia Assessment Anesthesia Assessment: Discussed sedation and/or anesthesia options, risks, benefits, and alternatives with patient/parents/legal guardian/POA. Questions invited. The patient/parents/legal guardian/POA seems to understand and agrees to proceedwith anesthesia plan. Reviewed the physical assessment, medical history, allergy history and patient home medications list prior to surgery/procedure/anesthetic and documented any changes. Performed airway and anesthesia risk assessments. Anesthesia Type Anesthesia Type: General Anesthesia Focused Assessment* Airway Assessment Mouth opens: >3 cm Mallampati Score: II Focused Labs Anesthesia Preop lab: CBC WBC 8.9 K/mm3 (4.4-11.0) 09/24/24 10:04 09/24/24 RBC 3.27 M/mm3 (4.6-6.2) L 09/24/24 10:09/24/24 Hgb 10.5 g/dL (13.0-16.5) L 09/24/24 10:04 5 Hct 32.4 % (40-54) L 09/24/24 10:04 09/24/24 Plt Count 208 K/mm3 (150-450) 09/24/24 10:04 09/24/24 CHEMISTRY Potassium 4.5 mmol/L (3.3-5.1) 10/04/24 15:06 10/04/24 Sodium 140 mmol/L (133-145) 10/04/24 15:06 10/04/24 BUN 31 mg/dL (4-19) H 10/04/24 15:06 10/04/24 Creatinine 1.4 mg/dL (0.8-1.3) H 10/04/24 15:06 10/04/24 Glucose 138 mg/dL (70-99) H 10/04/24 15:06 10/04/24 POC Glucose 224 mg/dL (74-106) H 09/25/24 11:17 09/25/24 TSH 1.280 uIU/mL (0.358-3.740) 06/13/24 09:49 1101/29 COAG Pre-Assessment Diagnosis/Proposed Procedure Planned Operative Procedure(s): ESWL Anesthesia History 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 When Was Last Pacemaker Check QUESTION #4 FULL TEXT: You/Your Family Experience fever (hyperthermia) with Anesthesia Last Oral Intake Last Oral intake: Last Oral Intake NPO since Meds taken in AM with sips of water? Meds patient instructed to take am of surgery PONV PONV - park maintainer: PONV - park maintainer Female No 10/11/24 08:31 HX of Motion Sickness No 10/11/24 08:31 HX of N/V After Surgery No 10/11/24 08:31 Non-Smoker Yes 10/11/24 08:31 Duration of Surgery greater Yes 10/11/24 08:31 than 60 minutes Number of Risk Factors 2 10/11/24 08:31 PONV Score Moderate Risk 10/11/24 08:31 Height & Weight Height & Weight: Anesthesia: Height & Weight Height 5 ft 9 in 09/24/24 10:25 Respiratory Assessment Respiratory Assessment - park maintainer: Respiratory Tract Infection Hx - park maintainer Hx Respiratory Tract Infection No 10/11/24 08:31 STOP Sleep Apnea STOP Sleep Apnea - park maintainer: STOP Sleep Apnea - park maintainer Hx Hypertension Yes: ON MEDS 10/11/24 08:31 Hx Sleep Apnea No 10/11/24 08:31 CPAP No 12/01/21 16:40 BIPAP No 12/01/21 14:58 Do you snore loudly (louder No 10/11/24 08:31 than talking or can be heard Do you often feel tired/ No 10/11/24 08:31 fatigued/ sleepy during daytime? Has anyone observed you stop No 10/11/24 08:31 breathing during sleep? STOP Results Negative 10/11/24 08:31 QUESTION #5 FULL TEXT : Do you snore loudly (louder than talking or can be heard through closeddoors)? Tobacco Use History Tobacco Use History - park maintainer: Tobacco Use History - park maintainer Tobacco Use Smoking Status Never smoker 10/11/24 08:31 Hx Tobacco Use No 10/11/24 08:31 Years Smoking Packs Smoked per Day Smoking Cessation Date was within the last 15 years Hx Smoking Cessation Date Hx Smoking Cessation Counseling Hematologic Medial History Hematologic Hx - park maintainer: Hematologic Medical Hx - deck cadet Hx of Blood Transfusion No 10/11/24 08:31 Hx of Transfusion in last 3 No 10/11/24 08:31 Months Date of Last Transfusion (if within last 3 months) Ever experience any problems No 10/11/24 08:31 with transfusion(s)? Specify any problems Hx of Preganancy in last 3 N/A 10/11/24 08:31 Months Nurse Filling Out Transfusion JZOLLINGE 10/11/24 08:31 & Questions: Date: 10/11/24 10/11/24 08:31 Time: 08:35 10/11/24 08:31 Patient unable to answer at this time (ie. confused, unrespo /Reproduction History /Reproductive History - park maintainer: /Reproductive Hx- park maintainer Hx Now No 10/11/24 08:31 Gestational Age (in weeks): EDC: Hx Hx Para Hx Section SAB No 10/11/24 08:31 Active Medications Active Medications: Current Medications Generic Name Dose Route Start Last Admin Trade Name Freq PRN Reason Stop Dose Admin Cefazolin Sodium 2 gm/ N/A 20 mls @ 400 mls/hr 10/19/24 13:15 IV 10/19/24 13:17 PREOP ONE [facility] Medical History Loss of hearing Walker as ambulation aid High cholesterol History of stress test Wears glasses History of MRSA infection Non-smoker Physical debility Debility Closed head injury Frequent falls Sciatica Kidney stones Decreased hearing Hyperlipemia Hypertension Chronic back pain Arthritis Type 2 diabetes mellitus Home Medications ?Medication ?Instructions ?Recorded ?Last Taken ?Type atorvastatin 40 mg tablet 40 mg PO QHS CHOLESTEROL 09/2611/21/21 History lisinopril 5 mg tablet 5 mg PO DAILY blood pressure 04/25/19 11/22/21 History metformin 500 mg tablet 500 mg PO BID diabetes 02/0211/22/21 History acetaminophen 500 mg tablet 1,000 mg (2 x 500 mg) PO Q 6H PRN 12/03/21 Unknown Rx PRN Pain Score 1-3 #0 tabs gabapentin 100 mg capsule 100 mg PO TIDCM 30 days #90 caps 12/03/21 Unknown Rx tamsulosin 0.4 mg capsule 0.4 mg PO DAILY@1730 14 days #14 09/25/24 Unknown Rx caps Allergy/AdvReac Type Severity Reaction Status Date / Time oxycodone HCl (From Percocet) Allergy Intermediate Other Verified 10/11/24 08:19 Family History Father Mental disorder Heart disease Mother Heart disease High cholesterol Surgical History History of kidney stones History of cervical spinal surgery Social History household members: none Smoking Status: Never smoker alcohol intake: never substance use type: does not use what type of physical activity do you participate in: walking frequency: daily Review of Systems (Anesthesia) ROS Narrative System reviewed and no additional complaints, except as documented. 10/19/24 1122 > Date _ Santos Mahmood MD Amadamassimojc Signature: Date CC: ~ Signed [facility]02-18-2025 [facility] Evaluation note* Diagnosis Onset Date Resolution Status Admit Date Acute kidney injury acute Febru 2024 7:23am Kidney stone acute September 7:23am [facility] Work Phone: 1(248) 381-632402-16-2025 Evaluation note* Diagnosis Onset Date Resolution Status Admit Date Acute kidney injury acute u 2024 7:23am Kidney stone acute September 7:23am Acute cystitis with hematuria acute November 04, 2024 8:45pm Ambulatory dysfunction acute Ma rch 2024 8:45pm BPH (benign prostatic hyperplasia) acute November 04, 2024 8:45pm Calculus of left ureter acute [facility] 2024 8:45pm Dehydration acute November 04, 025 8:45pm Fall at home acute November 04, 2024 8:45pm Fever acute November 04 8:45pm Generalized weakness acute Asher h 2024 8:45pm Morbid obesity with BMI of 45.0-49.9, adult acute November 04 8:45pm Pyelonephritis of left kidney acute November 04, 2024 8:45pm Rhabdomyolysis acute October 8:45pm UTI (urinary tract infection) acute November 04, 2024 8:45pm Chronic prostatitis chronic November 04, 2024 8:45pm [facility] Work Phone: 1(388) 588-658602-16-2025 Evaluation note* Diagnosis Onset Date Resolution Status Admit Date Kidney stone acute September 7:23am Acute kidney injury resolved Febru 2024 7:23am Acute cystitis with hematuria acute November 04, 2024 8:45pm BPH (benign prostatic hyperplasia) acute November 04, 2024 8:45pm Dehydration acute November 04, 025 8:45pm Fever acute November 04 8:45pm Generalized weakness acute Asher 2024 8:45pm Morbid obesity with BMI of 45.0-49.9, adult acute November 04 8:45pm Pyelonephritis of left kidney acute November 04, 2024 8:45pm Chronic prostatitis chronic November 04, 2024 8:45pm Calculus of left ureter resolved M arch 2024 8:45pm Rhabdomyolysis resolved October 8:45pm UTI (urinary tract infection) resolv ed November 04, 2024 8:45pm Ambulatory dysfunction inactive [facility] 2024 8:45pm Fall at home inactive November 04, 2024 8:45pm BPH (benign prostatic hyperplasia) acute November 07, 2024 6:54pm Debility acute November 07 6:54pm Diabetic polyneuropathy acute A 2024 6:54pm Essential (primary) hypertension acute November 07, 2024 6:54pm Hyperlipidemia acute November 07, 2024 6:54pm Type 2 diabetes mellitus wit h hyperglycemia acute November 07, 2024 6:54pm Acute kidney injury resolved November 07, 2024 6:54pm Calculus of left ureter resolved A pril 2024 6:54pm Muscle spasm resolved November 07 025 6:54pm Rhabdomyolysis resolved November 07, 2024 6:54pm UTI (urinary tract infection) resolv ed November 07, 2024 6:54pm [facility] Work Phone: [phone] 271-845501-26-2025 Consult note Author Santos Mahmood [facility] Note Date/Time October 19, 2024 4:0 0pm [facility] Medical Records Department [address] [place] [address] Anesthesia Postop Eval II 10/19/24 1520 MR#: [id number] Acct: [id number] Name: AARON CHAPA Rep #:[id number] : 1950 74 From: Santos Mahmood MD PCP: Dr. 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[employer] Spontaneous unlabored Yes 10/19/24 14:31 PHARMACY DELIVERY DRIVER.CSIR respirations Mental status nausea No 10/19/24 14:31 PHARMACY DELIVERY DRIVER.CSIR Vomiting No 10/19/24 14:31 PHARMACY DELIVERY DRIVER.CSIR Anesthesia Postop Eval I: Fluid Summary Crystalloid volume administer 1,000 10/19/24 14:31 PHARMACY DELIVERY DRIVER.CSIR (ml) Colloids volume administered ( ml) Blood Product volume administered (ml) Total IV fluid infused 1,000 10/19/24 14:31 PHARMACY DELIVERY DRIVER.CSIR Anesthesia Postop Eval I: Summary Notes Anesthesia Complication No 10/19/24 14:31 PHARMACY DELIVERY DRIVER.CSIR Anesthesia Complication Comment: Post-operative progress note Anesthesia: Postop Eval II Evaluation Mental status: Awake Pain Level: 0 nausea: No Vomiting: No 10/19/24 1520 <Electronically signed by Santos Mahmood MD > Date _ Santos Mahmood MD Cosigner Signature: Date CC: ~ Signed [facility] Work Phone: Consult note Author Leni Fraga [facility] Note Date/Time October 19, 2024 2:3 2pm [facility] Medical Records Department [address] [place] [address] Anesthesia Postop Eval I 10/19/24 1431 MR#: [id number] Acct: [id number] Name: AARON CHAPA Rep #:[id number] : 1950 74 From: Leni Fraga PCP: Dr. Mitch Chi Oj, MD Status:REG S DC Y Race: C Location: [place] [address] Anesthesia: Postop Eval I Current Vital Signs Temperature: 97.4 F Pulse Rate: 87 Blood Pressure: 162/92 Respiratory Rate: 20 Pulse Ox: 95 Assessment Airway patent: Yes Spontaneous unlabored respirations: Yes nausea: No Vomiting: No Anesthesia Complication: No Fluid Hydration Crystalloid volume administer (ml): 1,000 Total IV fluid infused: 1,000 Progress Note Anesthesia document: Postop Eval 1 completed: Yes 10/19/24 1432 <Electronically signed by Leni aguilar> Date _ Leni Spencer Signature: Date CC: ~ Signed [facility] Work Phone: Evaluation noteNo assessment information available [facility] Work Phone: Evaluation note* Diagnosis Onset Date Resolution Status Closed head injury acute Debility acute Frequent falls acute Physical debility acute Sciatica acute [facility] Work Phone: Evaluation note* Diagnosis Onset Date Resolution Status Closed head injury acute Debility acute Diabetes mellitus acute Diabetic polyneuropathy acut e Fall acute Hyperlipidemia acute Muscle spasm acute Hypertension chronic [facility] Work Phone: Hospital Discharge instructions Additional Instructions While taking Paxlovid to treat your COVID, please hold your atorvastatin (your cholesterol medicine that you take at bedtime). You can resume this medication once the Paxlovid course is complete.[facility] Work Phone: Reason for referral (narrative)No reason for referral information availableWSt. [facility] Work Phone: Summary Purpose Family History Relationship Condition Age at Onset Recorded Date/T klarissa father Mental disorder Unknown Cardiac disease Unknown mother Cardiac disease Unknown High blood cholesterol Unknown Advance Directives Advance Directive Response Recorded Date/ Time Advance Directives Yes December 12, 2015 3:09pm Living Will Yes April 21, 2020 8:36am Power of Ward Service Supervisor Yes April 8:36am Advance Directive Response Recorded Date/ Time Advance Directives Yes December 12, 2015 3:09pm Living Will No November 07, 2021 9:19am Power of Ward Service Supervisor No November 07 9:19am Advance Directive Response Recorded Date/ Time Advance Directives Yes December 12, 2015 3:09pm Living Will Yes November 17, 2021 6:14pm Power of Ward Service Supervisor Yes November 17 6:14pm Advance Directive Response Recorded Date/ Time Name of Medical Power of Ward Service Supervisor Maricruz Force November 17, 2021 6:14pm Advance Directives Yes December 12, 2015 3:09pm Living Will No November 22, 2021 6:01pm Power of Ward Service Supervisor No November 22 6:01pm Advance Directive Response Recorded Date/ Time Name of Medical Power of Ward Service Supervisor Maricruz Force November 17, 2021 6:14pm Advance Directives Yes December 12, 2015 3:09pm Living Will Yes November 22, 2021 10:13pm Power of Ward Service Supervisor Yes November 22 10:13pm Advance Directive Response Recorded Date/ Time Name of Medical Power of Ward Service Supervisor Maricruz Force November 17, 2021 6:14pm Name of Medical Power of Ward Service Supervisor Prisca Forrer November 22, 2021 10:13pm Name of Medical Power of Ward Service Supervisor dtr and son November 24, 2021 10:01am Advance Directives Yes December 12, 2015 3:09pm Living Will Yes December 01, 2021 2:58pm Power of Ward Service Supervisor Yes December 01 2:58pm Advance Directive Response Recorded Date/ Time Advance Directives Yes December 12, 2015 2:09pm Living Will Yes December 01, 2021 1:58pm Power of Ward Service Supervisor Yes December 01 1:58pm Advance Directive Response Recorded Date/ Time Name of Medical Power of Ward Service Supervisor prisca forrer August 10, 2022 10:28pm Advance Directives Yes December 12, 2015 2:09pm Living Will Yes August 10 10:28pm Power of Ward Service Supervisor Yes August 10, 023 10:28pm Advance Directive Response Recorded Date/ Time Advance Directives Yes December 12, 2015 3:09pm Living Will Yes August 10 11:28pm Power of Ward Service Supervisor Yes August 10 11:28pm Name of Medical Power of Ward Service Supervisor prisca sarah bethr August 10, 2022 11:28pm Advance Directive Response Recorded Date/ Time Advance Directives Yes December 12, 2015 2:09pm Living Will Yes August 10 10:28pm Power of Ward Service Supervisor Yes August 10 10:28pm Advance Directive Response Recorded Date/ Time Advance Directives Yes December 12, 2015 3:09pm Living Will Yes August 10 11:28pm Power of Ward Service Supervisor Yes August 10 11:28pm Advance Directive Response Recorded Date/ Time Living Will Yes September 23 11:06am Power of Ward Service Supervisor Yes September 23, 2024 11:06am Name of Medical Power of Ward Service Supervisor maricruz parthrer September 23, 2024 11:06am Living Will Yes June 25 6:34pm Power of Ward Service Supervisor Yes June 25, 2024 6:34pm Name of Medical Power of Ward Service Supervisor maricruz June 25, 2024 6:34pm Advance Directives Yes December 12, 2015 3:09pm Advance Directive Response Recorded Date/ Time Living Will Yes September 23 025 11:06am Power of Ward Service Supervisor Yes September 23, 2024 11:06am Name of Medical Power of Ward Service Supervisor maricruz parthrer September 23, 2024 11:06am Living Will Yes October 11, 2024 9:31am Power of Ward Service Supervisor Yes October 11 9:31am Name of Medical Power of Ward Service Supervisor DAUGHTER October 11, 2024 9:31am Living Will Yes June 25 024 6:34pm Power of Ward Service Supervisor Yes June 25, 2024 6:34pm Name of Medical Power of Ward Service Supervisor maricruz June 25, 2024 6:34pm Advance Directives Yes December 12, 2015 3:09pm Advance Directive Response Recorded Date/ Time Living Will Yes September 23 11:06am Do you have a Healthcare Power of Ward Service Supervisor? Yes September 23, 2024 11:06am Name of Medical Power of Ward Service Supervisor maricruz forrer February 16th, 2025 11:06am Living Will Yes October 11, 2024 9:31am Do you have a Healthcare Power of Ward Service Supervisor? Yes October 11, 2024 9:31am Name of Medical Power of Ward Service Supervisor DAUGHTER October 11, 2024 9:31am Living Will No November 04, 2024 4:47pm Do you have a Healthcare Power of Ward Service Supervisor? No November 04, 2024 4:47pm Advance Directives Yes December 12, 2015 3:09pm Advance Directive Response Recorded Date/ Time Living Will Yes September 23 11:06am Do you have a Healthcare Power of Ward Service Supervisor? Yes September 23, 2024 11:06am Name of Medical Power of Ward Service Supervisor maricruz chapa September 23, 2024 11:06am Living Will Yes October 11, 2024 9:31am Do you have a Healthcare Power of Ward Service Supervisor? Yes October 11, 2024 9:31am Name of Medical Power of Ward Service Supervisor DAUGHTER October 11, 2024 9:31am Living Will No November 04, 2024 9:22pm Do you have a Healthcare Power of Ward Service Supervisor? No November 04, 2024 9:22pm Advance Directives Yes December 12, 2015 3:09pm Advance Directive Response Recorded Date/ Time Living Will Yes September 23 11:06am Do you have a Healthcare Pow er of Ward Service Supervisor? Yes September 23, 2024 11:06am Name of Medical Power of Ward Service Supervisor maricruz chapa September 23, 2024 11:06am Living Will Yes October 11, 2024 9:31am Do you have a Healthcare Pow er of Ward Service Supervisor? Yes October 11, 2024 9:31am Name of Medical Power of Ward Service Supervisor DAUGHTER October 11, 2024 9:31am Living Will No November 04, 2024 9:22pm Do you have a Healthcare Pow er of Ward Service Supervisor? No November 04, 2024 9:22pm Living Will Yes November 08, 2024 3:35pm Do you have a Healthcare Pow er of Ward Service Supervisor? Yes November 08, 2024 3:35pm Name of Medical Power of Ward Service Supervisor Maricruz Chapa, daughter November 08, 2024 3:35pm Advance Directives Yes December 12, 2015 3:09pm Chief Complaint and Reason for Visit Chief Complaint LOWER EXTREMITY Chief Complaint LOWER EXTREMITY LOW BACK PAIN Chief Complaint LOWER EXTREMITY LOW BACK PAIN hip Chief Complaint LOWER EXTREMITY LOW BACK PAIN hip DEBILITY, MULTIPLE FALLS Reason for Visit Closed head injury Debility Frequent falls Physical debility Sciatica Chief Complaint LOWER EXTREMITY LOW BACK PAIN hip DEBILITY, MULTIPLE FALLS DEBILITY, MULTIPLE FALLS DEBILITY, MULTIPLE FALLS Reason for Visit Closed head injury Debility Frequent falls Physical debility Sciatica Chief Complaint LOWER EXTREMITY LOW BACK PAIN hip DEBILITY, MULTIPLE FALLS DEBILITY, MULTIPLE FALLS DEBILITY, MULTIPLE FALLS DEBILITY AND FALLS Reason for Visit Closed head injury Debility Diabetes mellitus Diabetic polyneuropathy Fall Hyperlipidemia Muscle spasm Hypertension Chief Complaint GENERAL ILLNESS Chief Complaint Admit Date flank pain June 25, 2024 4:50pm WEAKNES BILAT LEGS July 19, 2024 6:13am INFEFCTED KIDNEY STONE September 23 7:23am INFEFCTED KIDNEY STONE September 23 11:38am INFEFCTED KIDNEY STONE September 24 9:08am INFEFCTED KIDNEY STONE September 25 2:16pm Reason for Visit Admit Date Acute kidney injury September 23, 2024 7:23am Kidney stone September 23, 2024 7:23am Chief Complaint Admit Date flank pain June 25, 2024 4:50pm WEAKNES BILAT LEGS July 19, 2024 6:13am INFEFCTED KIDNEY STONE September 23 7:23am INFEFCTED KIDNEY STONE September 23 11:38am INFEFCTED KIDNEY STONE September 24 9:08am INFEFCTED KIDNEY STONE September 25 2:16pm LEFT ESWL October 19, 2024 10: 57am Chief Complaint Admit Date WEAKNES BILAT LEGS July 19, 2024 6:13am INFEFCTED KIDNEY STONE September 23 7:23am INFEFCTED KIDNEY STONE September 23 11:38am INFEFCTED KIDNEY STONE September 24 9:08am INFEFCTED KIDNEY STONE September 25 2:16pm LEFT ESWL October 19, 2024 10: 57am RHABDOMYOLYSIS AFTER FALL WITH PROLONGED DOWN TIME November 04, 2024 8:45pm Reason for Visit Admit Date Acute kidney injury September 23, 2024 7:23am Kidney stone September 23, 2024 7:23am Acute cystitis with hematuria October 8:45pm Ambulatory dysfunction November 04, 2024 8:45pm BPH (benign prostatic hyperplasia) November 04, 2024 8:45pm Calculus of left ureter November 04, 2024 8:45pm Dehydration November 04, 2024 8:4 5pm Fall at home November 04, 2024 8:4 5pm Fever November 04, 2024 8:4 5pm Generalized weakness November 04, 2024 8: 45pm Morbid obesity with BMI of 45.0-49.9, ad ult November 04, 2024 8:45pm Pyelonephritis of left kidney October 8:45pm Rhabdomyolysis November 04, 2024 8:4 5pm UTI (urinary tract infection) October 8:45pm Chronic prostatitis November 04, 2024 8:4 5pm Chief Complaint Admit Date WEAKNES BILAT LEGS July 19, 2024 6:13am INFEFCTED KIDNEY STONE September 23 7:23am INFEFCTED KIDNEY STONE September 23 11:38am INFEFCTED KIDNEY STONE September 24 9:08am INFEFCTED KIDNEY STONE September 25 2:16pm LEFT ESWL October 19, 2024 10: 57am RHABDOMYOLYSIS AFTER FALL WITH PROLONGED DOWN TIME November 04, 2024 8:45pm RHABDOMYOLYSIS AFTER FALL WITH PROLONGED DOWN TIME November 05, 2024 2:59pm RHABDOMYOLYSIS AFTER FALL WITH PROLONGED DOWN TIME November 06, 2024 3:56pm RHABDOMYOLYSIS AFTER FALL WITH PROLONGED DOWN TIME November 07, 2024 8:48am Chief Complaint Admit Date INFEFCTED KIDNEY STONE September 23 7:23am INFEFCTED KIDNEY STONE September 23 11:38am INFEFCTED KIDNEY STONE September 24 9:08am INFEFCTED KIDNEY STONE September 25 2:16pm LEFT ESWL October 19, 2024 10: 57am RHABDOMYOLYSIS AFTER FALL WITH PROLONGED DOWN TIME November 04, 2024 8:45pm RHABDOMYOLYSIS AFTER FALL WITH PROLONGED DOWN TIME November 05, 2024 2:59pm RHABDOMYOLYSIS AFTER FALL WITH PROLONGED DOWN TIME November 06, 2024 3:56pm RHABDOMYOLYSIS AFTER FALL WITH PROLONGED DOWN TIME Wilma 2nd, 2025 8:48am RHABDO/UTI/LEFT RENAL STON November 07 6:54pm Reason for Visit Admit Date Kidney stone September 23, 2024 7:23am Acute kidney injury September 23, 2024 7:23am Acute cystitis with hematuria October 8:45pm BPH (benign prostatic hyperplasia) November 04, 2024 8:45pm Dehydration November 04, 2024 8:4 5pm Fever November 04, 2024 8:4 5pm Generalized weakness November 04, 2024 8: 45pm Morbid obesity with BMI of 45.0-49.9, ad ult November 04, 2024 8:45pm Pyelonephritis of left kidney October 8:45pm Chronic prostatitis November 04, 2024 8:4 5pm Calculus of left ureter November 04, 2024 8:45pm Rhabdomyolysis November 04, 2024 8:4 5pm UTI (urinary tract infection) October 8:45pm Ambulatory dysfunction November 04, 2024 8:45pm Fall at home November 04, 2024 8:4 5pm BPH (benign prostatic hyperplasia) November 07, 2024 6:54pm Debility November 07, 2024 6:54 pm Diabetic polyneuropathy November 07, 2024 6:54pm Essential (primary) hypertension November 072024 6:54pm Hyperlipidemia November 07, 2024 6:54 pm Type 2 diabetes mellitus with hyperglyce randee November 07, 2024 6:54pm Acute kidney injury November 07, 2024 6:54 pm Calculus of left ureter November 07, 2024 6:54pm Muscle spasm November 07, 2024 6:54 pm Rhabdomyolysis November 07, 2024 6:54 pm UTI (urinary tract infection) November 07, 2024 6:54pm Additional Source Comments (unrecognized sect ion and content) No Status Records FoundNo Status Records Found INFORMATION SOURCE (unrecogn ized section and content) DATE CREATED AUTHOR 02/03/2018 [facility] ([place]) DATE CREATED AUTHOR AUTHOR'S CARMELO ATION 01/01/2025 [facility] Goals (unrecognized section and content) Goals may be documented in a n alternate sectionGoals may be documented in an alternate sectionGoals may be documented in an alternate sectionGoals may be documented in an alternate sectionGoals may be documented in an alternate sectionGoals may be documented in an alternate sectionGoals may be documented in an alternate sectionGoals may be documented in an alternate sectionGoals may be documented in an alternate sectionGoals may be documented in an alternate sectionGoals may be documented in an alternate sectionGoals may be documented in an alternate sectionGoals may be documented in an alternate section Care Teams (unrecognized sec tion and content) Team Status: Active Member Role Status Dates Dr. Mitch Mcwilliams MD Family Provider Active Dr. Mitch Mcwilliams MD Primary Care Provider Active Team Status: Inactive Member Role Status Dates Dr. Mitch Mcwilliams MD Primary Care Provider Active Dr. Kiley Sarabia MD Attending Provider, Emergency Provider Active Team Status: Inactive Member Role Status Dates Dr. Mitch Mcwilliams MD Primary Care Provider, Attending Provider Active Team Status: Inactive Member Role Status Dates Dr. Mitch Mcwilliams MD Primary Care Provider Active Porsha Guptaing Attending Provider, Referring Provide r Active Team Status: Active Member Role Status Dates Dr. Mitch Mcwilliams MD Primary Care Provider Active Team Status: Inactive Member Role Status Dates Dr. Mitch Mcwilliams MD Primary Care Provider Active Start: June 25, 2024 End: June 25, 2024 Dr. Darrin Mata MD Attending Provider Active Start: June 25, 2024 End: June 25, 2024 Dr. Darrin Mata MD Emergency Provider Active Start: June 25, 2024 End: June 25, 2024 Team Status: Inactive Member Role Status Dates Dr. Mitch Mcwilliams MD Primary Care Provider Active Start: July 19, 2024 End: July 19, 2024 Dr. Mitch Mcwilliams MD Attending Provider Active Start: July 19, 2024 End: July 19, 2024 Dr. Mitch Mcwilliams MD Referring Provider Active Start: July 19, 2024 End: July 19, 2024 Dr. Jose Manuel Pham MD Other Provider Active Start: July 19, 2024 End: July 19, 2024 Team Status: Inactive Member Role Status Dates Dr. Mitch Mcwilliams MD Primary Care Provider Active Start: September 23, 2024 End: September 25, 2024 Dr. Gino Chaudhary DO Emergency Provider Active Start: September 23, 2024 End: September 25, 2024 Dr. Gen Mayen MD Admit Provider Active Start: September 23, 2024 End: September 25, 2024 Dr. Gen Mayen MD Attending Provider Active Start: September 23, 2024 End: September 25, 2024 Dr. Jose Manuel Pham MD Other Provider Active Start: September 23, 2024 End: September 25, 2024 Team Status: Active Member Role Status Dates Dr. Mitch Mcwilliams MD Primary Care Provider Active Start: September 23, 2024 Dr. Gino Chaudhary DO Emergency Provider Active Start: September 23, 2024 Dr. Gen Mayen MD Admit Provider Active Start: September 23, 2024 Dr. Gen Mayen MD Attending Provider Active Start: September 23, 2024 Dr. Gen Mayen MD Other Provider Active Start: September 23, 2024 Dr. Jose Manuel Pham MD Other Provider Active Start: September 23, 2024 Team Status: Active Member Role Status Dates Dr. Mitch Mcwilliams MD Primary Care Provider Active Start: September 24, 2024 Dr. Gino Chaudhary DO Emergency Provider Active Start: September 24, 2024 Dr. Gen Mayen MD Admit Provider Active Start: September 24, 2024 Dr. Gen Mayen MD Attending Provider Active Start: September 24, 2024 Dr. Gen Mayen MD Other Provider Active Start: September 24, 2024 Dr. Jose Manuel Pham MD Other Provider Active Start: September 24, 2024 Team Status: Active Member Role Status Dates Dr. Mitch Mcwilliams MD Primary Care Provider Active Start: September 25, 2024 Dr. Gino Chaudhary DO Emergency Provider Active Start: September 25, 2024 Dr. Gen Mayen MD Admit Provider Active Start: September 25, 2024 Dr. Gen Mayen MD Attending Provider Active Start: September 25, 2024 Dr. Gen Mayen MD Other Provider Active Start: September 25, 2024 Dr. Jose Manuel Pham MD Other Provider Active Start: September 25, 2024 Team Status: Inactive Member Role Status Dates Dr. Mitch Mcwilliams MD Primary Care Provider Active Start: October 04, 2024 End: October 04, 2024 Dr. Mitch Mcwilliams MD Attending Provider Active Start: October 04, 2024 End: October 04, 2024 Team Status: Inactive Member Role Status Dates Dr. Mitch Mcwilliams MD Primary Care Provider Active Start: October 19, 2024 End: October 19, 2024 Dr. Jose Manuel Pham MD Attending Provider Active Start: October 19, 2024 End: October 19, 2024 Dr. Jose Manuel Pham MD Referring Provider Active Start: October 19, 2024 End: October 19, 2024 Team Status: Active Member Role Status Dates Dr. Mitch Mcwilliams MD Primary Care Provider Active Start: November 04, 2024 Dr. Bryant Zavala DO Emergency Provider Active Start : November 04, 2024 Dr. Joel Baldwin DO Admit Provider Active Start: November 04, 2024 Dr. Joel Baldwin DO Attending Provider Active Start: November 04, 2024 Team Status: Inactive Member Role Status Dates Dr. Mitch Mcwilliams MD Primary Care Provider Active Start: November 04, 2024 End: November 07, 2024 Dr. Bryant Zavala DO Emergency Provider Active Start : November 04, 2024 End: November 07, 2024 Dr. Joel Baldwin DO Admit Provider Active Start: November 04, 2024 End: November 07, 2024 Dr. Joel Baldwin DO Other Provider Active Start: November 04, 2024 End: November 07, 2024 Dr. Jose Manuel Pham MD Other Provider Active Start: November 04, 2024 End: November 07, 2024 Dr. Wellington Stone MD Attending Provider Active Start: November 04, 2024 End: November 07, 2024 Team Status: Active Member Role Status Dates Dr. Mitch Mcwilliams MD Primary Care Provider Active Start: November 05, 2024 Dr. Bryant Zavala DO Emergency Provider Active Start : November 05, 2024 Dr. Joel Baldwin DO Admit Provider Active Start: November 05, 2024 Dr. Joel Baldwin DO Other Provider Active Start: November 05, 2024 Dr. Jose Manuel Pham MD Other Provider Active Start: November 05, 2024 Dr. Wellington Stone MD Attending Provider Active Start: November 05, 2024 Dr. Wellington Stone MD Other Provider Active Sta rt: November 05, 2024 Team Status: Active Member Role Status Dates Dr. Mitch Mcwilliams MD Primary Care Provider Active Start: November 05, 2024 Dr. Abdias Thompson MD Attending Provider Active S tart: November 05, 2024 Team Status: Active Member Role Status Dates Dr. Mitch Mcwilliams MD Primary Care Provider Active Start: November 06, 2024 Dr. Bryant Zavala DO Emergency Provider Active Start : November 06, 2024 Dr. Joel Baldwin DO Admit Provider Active Start: November 06, 2024 Dr. Joel Baldwin DO Other Provider Active Start: November 06, 2024 Dr. Jose Manuel Pham MD Other Provider Active Start: November 06, 2024 Dr. Wellington Stone MD Attending Provider Active Start: November 06, 2024 Dr. Wellington Stone MD Other Provider Active Sta rt: November 06, 2024 Team Status: Active Member Role Status Dates Dr. Mitch Mcwilliams MD Primary Care Provider Active Start: November 07, 2024 Dr. Bryant Zavala DO Emergency Provider Active Start : November 07, 2024 Dr. Joel Baldwin DO Admit Provider Active Start: November 07, 2024 Dr. Joel Baldwin DO Other Provider Active Start: November 07, 2024 Dr. Jose Manuel Pham MD Other Provider Active Start: November 07, 2024 Dr. Wellington Stone MD Attending Provider Active Start: November 07, 2024 Dr. Wellington Stone MD Other Provider Active Sta rt: November 07, 2024 Team Status: Active Member Role Status Dates Dr. Mitch Mcwilliams MD Primary Care Provider Active Start: November 05, 2024 Dr. Abdias Thompson MD Attending Provider Active S tart: November 05, 2024 Dr. Joel Baldwin DO Referring Provider Active Start: November 05, 2024 Team Status: Inactive Member Role Status Dates Dr. Mitch Mcwilliams MD Primary Care Provider Active Start: November 07, 2024 End: November 29, 2024 Dr. Mitch Mcwilliams MD Admit Provider Active Star t: November 07, 2024 End: November 29, 2024 Dr. Mitch Mcwilliams MD Attending Provider Active Start: November 07, 2024 End: November 29, 2024 Team Status: Inactive Member Role Status Dates Dr. Mitch Mcwilliams MD Primary Care Provider Active Start: December 20, 2024 End: December 20, 2024 Dr. Mitch Mcwilliams MD Attending Provider Active Start: December 20, 2024 End: December 20, 2024 Dr. Mitch Mcwilliams MD Referring Provider Active Start: December 20, 2024 End: December 20, 2024 FOR RECORDS PERTAINING TO PATIENTS WHO ARE OR HAVE BEEN ENROLLED IN A CHEMICAL DEPENDENCY/SUBSTANCEABUSE PROGRAM, SOME INFORMATION MAY BE OMITTED. This clinical summary was aggregated from multiple sources. Caution should be exercised in using it in the provision of clinical care. This summary normalizes information from multiple sources, and as a consequence, information in this document may materially change the coding, format and clinical context of patient data. In addition, data may be omitted in some cases. CLINICAL DECISIONS SHOULD BE BASED ON THE PRIMARY CLINICAL RECORDS. [employer] [facility] provides no warranty or guarantee of the accuracy or completeness of information in this document.
[2025-07-09 00:02] LABS: Xtra Tube Kwok EXTRA TUBE
== END | disposition home or self-care (01) ==
LOC: POLAB3 16:00
PROVIDERS: PCP Family Medicine Geriatric Medicine; Visit Provider Family Medicine Geriatric Medicine
DX: I12.9 Hypertensive chronic kidney disease with stage 1 through stage 4 chronic kidney disease, or unspecified chronic kidney disease (principal); E11.22 Type 2 diabetes mellitus with diabetic chronic kidney disease; N18.9 Chronic kidney disease, unspecified; E55.9 Vitamin D deficiency, unspecified
CPT/HCPCS: 36415; 80053; 82306; 84443; 85025